=== PATIENT | male | born 1950 | race Caucasian/White ===

== ENCOUNTER 2023-05-15 09:15 | Outpatient (OUT) | payer OTHER, SELFPAY ==
--- NOTE | 2023-05-15 09:37 | CT_ITS ---
[address] [address] Patient Name: SHARON GUO MRN: [id number] date: 1950 Sex: M Assigned Patient Location: CT Current Patient Location: CT Accession/Order Number: [id number] Exam Date: 05/15/2023 09:52 Report Date: 05/15/2023 15:30 At the request of: SHAIKH SHAUNA Procedure: CT lung screening low-dose EXAMINATION: CT lung screening low-dose HISTORY: Lung cancer screening COMPARISON: No relevant comparison available. TECHNIQUE: Axial, Coronal, and Sagittal images were created without the administration of IV contrast material. Dose reduction techniques were achieved by using automated exposure control and/or adjustment of mA and/or kV according to patient size and/or use of iterative reconstruction technique. FINDINGS: LUNGS: Mild emphysematous changes. No suspicious nodules or infiltrates. PLEURA: No mass, effusion, or pneumothorax. VASCULATURE: No abnormality. PAIGE: No mass or pathologic adenopathy. MEDIASTINUM: No mass or pathologic adenopathy. CARDIAC: Atherosclerotic coronary artery disease. AORTA: No aneurysm or dissection. CHEST WALL: No mass or axillary adenopathy BONES: No bone lesion or fracture. LIMITED ABDOMEN: No suspicious findings. Limited images of the upper abdomen. OTHER: Negative. CT/CT lung screening low-dose IMPRESSION: 1. Lung-RADS Category 1 Negative. No nodules and definitely benign nodules. Continue annual screening with LDCT in 12 months. Electronically authenticated by: CODIE RICHTER Date: 05/15/2023 15:30
[2023-05-15 09:44] LABS: Basophils Absolute Auto 0.1 10^3/uL (0.0-0.1); Basophils Percent Auto 0.7 % (0.2-2.0); Eosinophils Absolute Auto 0.5 10^3/uL (0.0-0.7); Hematocrit 45.9 % (42.0-54.0); Hemoglobin 14.9 g/dL (14.0-18.0); Immature Granulocytes Abs Auto 0.03 10^3/uL (0.00-0.03); Immature Granulocytes Pct Auto 0.3 % (0.0-0.5); Lymphocytes Absolute Auto 2.5 10^3/uL (1.2-3.8); Lymphocytes Percent Auto 25.3 % (20.5-60.0); Mean Corpuscular HGB Conc 32.5 g/dL (29.9-35.2); Mean Corpuscular Hemoglobin 28.1 pg (25.9-34.0); Mean Corpuscular Volume 86.6 fL (80.0-94.0); Mean Platelet Volume 10.9 fL (9.5-13.5); Monocytes Absolute Auto 0.8 10^3/uL (0.3-0.8); Monocytes Percent Auto 8.5 % (1.7-12.0); Neutrophils Absolute Auto 5.9 10^3/uL (1.4-6.5); Neutrophils Percent Auto 60.2 % (43.0-75.0); Platelet Count 261 10^3/uL (150-450); Red Cell Distribution Width 12.8 % (11.0-15.0); White Blood Count 9.9 10^3/uL (4.0-11.0)
[2023-05-15 10:09] LABS: Alanine Aminotransferase 62 U/L (16-63); Albumin Globulin Ratio 0.8; Albumin Level 3.4 g/dL (3.4-5.0); Alkaline Phosphatase 90 U/L (46-116); Anion Gap 13.4; Aspartate Amino Transferase 68 U/L (15-37); Bilirubin Total 0.4 mg/dL (0.2-1.0); Calcium 9.4 mg/dL (8.5-10.1); Chloride 100 mmol/L (98-107); Chol HDL Ratio 4.5; Cholesterol 147 mg/dL (<=200); Estimated GFR (African America >60 (>=60); Estimated GFR (Non-African Ame >60 (>=60); Globulin 4.4 g/dL; Glucose 198 mg/dL (74-106); HDL Cholesterol 33 mg/dL (40-60); Potassium 4.4 mmol/L (3.5-5.1); Sodium 138 mmol/L (136-145); Total Protein 7.8 g/dL (6.4-8.2); Triglycerides 290 mg/dL (<=150)
[2023-05-15 11:18] LABS: Estimated Average Glucose 177 mg/dL; Glycohemoglobin A1C 7.8 % (4.5-6.2)
[2023-05-15 12:33] LABS: Microalbumin Urine Random 10.6 mg/dL (<=30.0)
== END 2023-05-15 09:16 | disposition home or self-care (01) ==
LOC: CT 09:20
PROVIDERS: PCP Internal Medicine; Visit Provider Internal Medicine
DX: Z12.2 Encounter for screening for malignant neoplasm of respiratory organs (principal); E11.9 Type 2 diabetes mellitus without complications; E78.5 Hyperlipidemia, unspecified; I10 Essential (primary) hypertension
CPT/HCPCS: 36415; 71271; 80053; 80061; 82043; 82570; 83036; 85025

== ENCOUNTER 2023-07-11 08:07 | Outpatient (OUT) | payer OTHER, SELFPAY ==
--- NOTE | 2023-07-11 08:15 | RT_ITS ---
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 Findings were considered accurate and reproducible. No bronchodilator was administered due to normal spirometric values. Due to software limitations, no prior studies (if performed previously) are currently available for comparison. Spirometry: -FEV1/FVC: Normal @ 77% -FEV1: Normal @ 86% -FVC: Normal @ 82% Lung volumes by plethysmography: -RV: Normal @ 98% -TLC: Normal @ 89% Diffusion capacity: -DLCO: Low normal @ 80% when corrected for Hb 14g/dL Flow-volume loop: -Trend towards mild restrictive pattern Impressions: -Essentially normal PFT with trends towards a mild restrictive physiology secondary to morbid obesity (stated BMI 40.4). Clinical correlation required. Electronically Signed On 07-21-2023 15:54:47 EDT by Juni Lee
[2023-07-11 09:13] LABS: Estimated Average Glucose 177 mg/dL; Glycohemoglobin A1C 7.8 % (4.5-6.2)
== END 2023-07-11 08:08 | disposition home or self-care (01) ==
LOC: CARD 08:08
PROVIDERS: PCP Internal Medicine; Visit Provider Internal Medicine
DX: E11.9 Type 2 diabetes mellitus without complications (principal); J44.9 Chronic obstructive pulmonary disease, unspecified
CPT/HCPCS: 36415; 83036; 85018; 94010; 94726; 94729

== ENCOUNTER 2023-10-07 09:17 | Outpatient (OUT) | payer OTHER, SELFPAY ==
[2023-10-07 09:57] LABS: Basophils Absolute Auto 0.1 10^3/uL (0.0-0.1); Basophils Percent Auto 0.6 % (0.2-2.0); Eosinophils Percent Auto 12.1 % (0.9-7.0); Hematocrit 41.3 % (42.0-54.0); Hemoglobin 12.8 g/dL (14.0-18.0); Immature Granulocytes Abs Auto 0.03 10^3/uL (0.00-0.03); Immature Granulocytes Pct Auto 0.4 % (0.0-0.5); Lymphocytes Percent Auto 24.3 % (20.5-60.0); Mean Corpuscular Hemoglobin 27.8 pg (25.9-34.0); Mean Corpuscular Volume 89.6 fL (80.0-94.0); Mean Platelet Volume 11.2 fL (9.5-13.5); Monocytes Absolute Auto 0.8 10^3/uL (0.3-0.8); Neutrophils Absolute Auto 4.5 10^3/uL (1.4-6.5); Neutrophils Percent Auto 53.6 % (43.0-75.0); Platelet Count 195 10^3/uL (150-450); Red Blood Count 4.61 10^6/uL (4.70-6.10); Red Cell Distribution Width 13.2 % (11.0-15.0); White Blood Count 8.4 10^3/uL (4.0-11.0)
[2023-10-07 11:31] LABS: Alanine Aminotransferase 36 U/L (16-63); Alkaline Phosphatase 82 U/L (46-116); Aspartate Amino Transferase 30 U/L (15-37); BUN Creatinine Ratio 17.4; Chloride 100 mmol/L (98-107); Estimated GFR (African America >60 (>=60); Estimated GFR (Non-African Ame 59 (>=60); Glucose 136 mg/dL (74-106); Potassium 4.3 mmol/L (3.5-5.1); Sodium 138 mmol/L (136-145)
[2023-10-07 11:57] LABS: Albumin Globulin Ratio 0.8; Albumin Level 3.2 g/dL (3.4-5.0); Anion Gap 11.4; Bilirubin Total 0.5 mg/dL (0.2-1.0); Carbon Dioxide 30.9 mmol/L (21.0-32.0); Globulin 3.9 g/dL; Total Protein 7.1 g/dL (6.4-8.2)
[2023-10-07 12:09] LABS: Estimated Average Glucose 160 mg/dL; Glycohemoglobin A1C 7.2 % (4.5-6.2)
[2023-10-07 18:39] LABS: HDL Cholesterol 35 mg/dL (40-60); Triglycerides 303 mg/dL (<=150)
[2023-10-07 18:43] LABS: Chol HDL Ratio 4.3; Cholesterol 150 mg/dL (<=200)
== END 2023-10-07 09:18 | disposition home or self-care (01) ==
LOC: LAB 09:17
PROVIDERS: PCP Internal Medicine; Visit Provider Internal Medicine
DX: E11.9 Type 2 diabetes mellitus without complications (principal); E78.5 Hyperlipidemia, unspecified
CPT/HCPCS: 36415; 80053; 80061; 83036; 85025

== ENCOUNTER 2023-10-21 15:41 | Outpatient (OUT) | payer OTHER, SELFPAY ==
--- OUTSIDE RECORDS SUMMARY | 2023-10-21 15:57 | XMS_ITS | CCD ---
Author Name Unknown Address [address] [place] [address] Organization [facility] Care Team Providers Care Senior Information Security Engineer Name Role Phone PHYSICIAN, DEFAULT Unavailable Unavailable PHYSICIAN, DEFAULT Unavailable Unavailable HAKAM, NENA Unavailable Unavailable HAKAM, NENA Unavailable Unavailable ENRIQUETA, LESLI Unavailable Unavailable KALIDIA, AMEER Unavailable Unavailable RAMIREZ, HOSSAMELDIN I Unavailable Unavailab le ENRIQUETA, LESLI Unavailable Unavailable RAMIREZ, HOSSAMELDIN I Unavailable Unavailab le RAMIREZ, HOSSAMELDIN I Unavailable Unavailab Tona Marrero Primary Care Provider Tona Daniels MD Primary Care Provider TONA DANIELS Primary Care Unavailable TONA DANIELS Referring Unavailable TONA DANIELS Primary Care Unavailable TONA DANIELS Referring Unavailable TONA DANIELS Primary Care Unavailable Pat Jesus Unavailable MD Indigo Mcnally Attending Provider Shaikh Mcnally Attending Unavailable Shaikh Mcnally Admitting Unavailable DR MP RODRIGES Primary Care Unavailable CANDELARIO HERMOSILLO Admitting Unavailable CANDELARIO HERMOSILLO Attending Unavailable CANDELARIO HERMOSILLO Consulting Unavailable [employer] Consulting Unavailable [facility] Admitting Unavailable [facility] Attending Unavailable SHAIKH Юлия MCNALLY Primary Care Unavailable [facility] Consulting Unavailable [facility] Admitting Unavailable [facility] Attending Unavailable SHAIKH Юлия MCNALLY Primary Care Unavailable [facility] Attending Unavailable CHALO TOVAR Attending Unavailable SHAIKH MCNALLY Attending Unavailable Medications Current Medications Medication Drug Class(es) Dates Sig (Normalized) Sig (Original) [id number] 200 actuat albuterol 0.09 mg/actuat metered dose inhaler (1 source) beta2-Adrenergic Agonist Start: 09-16-2021 take 2 puff(s) by inhalation four times daily as needed Albuterol Sulfate HFA 108 (90 Base) MCG/ACT 2 puffs Inhalation qid prn Sep, Active apixaban (5 sources) Factor Xa Inhibitor Eliquis Active take 1 tablet by mouth twice giovanni ly apixaban (ELIQUIS) 5 MG TABS tablet Take 5 mg by mouth 2 times daily 0 Active Aspirin (5 sources) Platelet Aggregation Inhibitor, Nonstero idal Anti-inflammatory Drug Aspirin 81 Active take 1 tablet by mouth once emily y aspirin EC 81 MG EC tablet Take 81 mg by mouth daily 0 Active atorvastatin 80 mg oral tablet (5 sources) HMG-CoA Reductase Inhibitor Start: 02-12-2021 take 1 tablet by mouth once daily atorvastatin (LIPITOR) 80 MG tablet TAKE 1 TABLET BY MOUTH EVERY DAY 90 tablet 1 02/12/2021 Active Start: 12-24-2018 take 1 tablet by hector th once daily atorvastatin (LIPITOR) 80 MG tablet TAKE ONE TABLET BY MOUTH ONE TIME A DAY 90 tablet 3 12/24/2018 Active Atorvastatin Santiago cium Active azithromycin 250 mg oral tablet (1 source) Macrolide Antimicrobial Start: 09-16-2021 Zithromax 250 MG 2 tablet on the first day, then 1 tablet daily for 4 days Orally Once a day for 5 day(s) Sep, Active blood glucose monitor kit and supplies (1 source) Start: 03-29-2020 blood glucose monitor kit and supplies Indications: Controlled type 2 diabetes mellitus with hyperglycemia, without long-term current use of insulin (HCC) Use to test daily 1 kit 0 03/29/2020 Active calcium chloride 0.0014 meq/ml / potassium chloride 0.004 meq/ml / sodium chloride 0.103 meq/ml / sodium lactate 0.028 meq/ml injectable solution (1 source) Start: 05-31-2019 lactated ringers infusion cholecalciferol 0.05 mg oral capsule (4 sources) Vitamin D take 1 capsule by mouth once daily Cholecalciferol (VITAMIN D) 2000 units CAPS capsule Take 1 capsule by mouth daily 0 Active dilTIAZem hydrochloride 60 mg oral tablet (5 sources) Calcium Channel Tiffani Start: 06-18-2019 take 1 tablet by mouth twice daily diltiazem (CARDIZEM) 60 MG tablet TAKE 1 TABLET BY MOUTH TWICE A DAY 6 06/18/2019 Active Diltiazem CD Act renetta take 1 tablet by mouth twice giovanni ly diltiazem (CARDIZEM) 30 MG tablet Take 30 mg by mouth 2 times daily 0 Active donepezil hydrochloride 10 mg oral tablet (2 sources) Start: 06-04-2021 take 1 tablet by mouth once daily donepezil (ARICEPT) 10 MG tablet TAKE 1 TABLET BY MOUTH EVERY DAY AT NIGHT 30 tablet 5 06/04/2021 Active Aricept Active gabapentin 300 mg oral capsule (2 sources) Anti-epileptic Agent Start: 03-20-2021 End: 09-16-2021 gabapentin (NEURONTIN) 300 MG capsule Take 1 capsule by mouth nightly for 180 days. Intended supply: 30 days 30 capsule 5 03/20/2021 09/16/2021 Active Gabapentin Activ e glimepiride 2 mg oral tablet (5 sources) Sulfonylurea Start: 03-15-2021 take 1 tablet by mouth once daily before breakfast glimepiride (AMARYL) 2 MG tablet Indications: Controlled type 2 diabetes mellitus with hyperglycemia, without long-term current use of insulin ([facility]) TAKE 1 TABLET BY MOUTH EVERY DAY BEFORE BREAKFAST 90 tablet 1 03/15/2021 Active Start: 08-24-2019 take 1 tablet by hector th once daily before breakfast glimepiride (AMARYL) 2 MG tablet Indications: Controlled type 2 diabetes mellitus with hyperglycemia, without long-term current use of insulin ([facility]) Take 1 tablet by mouth every morning (before breakfast) 30 tablet 5 08/24/2019 Active Start: 04-01-2019 take 1 tablet by hector th once daily before breakfast glimepiride (AMARYL) 2 MG tablet Indications: Controlled type 2 diabetes mellitus with hyperglycemia, without long-term current use of insulin ([facility]) Take 1 tablet by mouth every morning (before breakfast) 30 tablet 5 04/01/2019 Active Glimepiride Acti ve 12 hr guaiFENesin 600 mg extended release oral tablet (4 sources) Start: 07-26-2019 take 1 tablet by mouth twice daily as needed for congestion guaiFENesin (MUCINEX) 600 MG extended release tablet Take 1 tablet by mouth 2 times daily as needed for Congestion 30 tablet 0 07/26/2019 Active Mucinex Active metFORMIN hydrochloride 1000 mg oral tablet (5 sources) Biguanide Start: 02-09-2021 take 1 tablet by mouth twice daily at mealtime metFORMIN (GLUCOPHAGE) 1000 MG tablet Indications: Controlled type 2 diabetes mellitus with hyperglycemia, without long-term current use of insulin ([facility]) TAKE 1 TABLET BY MOUTH TWICE A DAY WITH MEALS 180 tablet 1 02/09/2021 Active Start: 09-27-2019 take 1 tablet by hector th twice daily at mealtime metFORMIN (GLUCOPHAGE) 1000 MG tablet Indications: Controlled type 2 diabetes mellitus with hyperglycemia, without long-term current use of insulin ([facility]) Take 1 tablet by mouth 2 times daily (with meals) 60 tablet 5 09/27/2019 Active Start: 04-01-2019 take 1 tablet by hector th twice daily at mealtime metFORMIN (GLUCOPHAGE) 1000 MG tablet Indications: Controlled type 2 diabetes mellitus with hyperglycemia, without long-term current use of insulin ([facility]) Take 1 tablet by mouth 2 times daily (with meals) 60 tablet 5 04/01/2019 Active metFORMIN HCl Ac tive nitroglycerin 0.4 mg sublingual tablet (2 sources) Nitrate Vasodilator Start: 12-16-2019 nitroGLYCE RIN (NITROSTAT) 0.[address] 1 tablet under the tongue every 5 minutes as needed for Chest pain 25 tablet 1 12/16/2019 Active Nitroglycerin Ac tive omeprazole 20 mg delayed release oral capsule (5 sources) Proton Pump Inhibitor Start: 03-15-2021 take 1 capsule by mouth once daily omeprazole (PRILOSEC) 20 MG delayed release capsule TAKE 1 CAPSULE BY MOUTH EVERY DAY 90 capsule 1 03/15/2021 Active Start: 12-24-2018 take 1 capsule by mo uth once daily omeprazole (PRILOSEC) 20 MG delayed release capsule Take 1 capsule by mouth daily 90 capsule 3 12/24/2018 Active Omeprazole Activ e predniSONE 20 mg oral tablet (1 source) Start: 09-16-2021 take 1 tablet by mouth every twelve hours predniSONE 20 MG 1 tablet Orally bid for 5 day(s) 12 Dec, 2021 Active Primidone (1 source) Anti-epileptic Agent Primidone Active ramipril 5 mg oral capsule (5 sources) Angiotensin Converting Enzyme Inhibitor Start: 02-09-2021 take 1 capsule by mouth twice daily ramipril (ALTACE) 5 MG capsule TAKE 1 CAPSULE BY MOUTH TWICE A DAY 180 capsule 1 02/09/2021 Active Start: 12-24-2018 take 1 capsule by mo uth twice daily ramipril (ALTACE) 5 MG capsule Take 1 capsule by mouth 2 times daily 180 capsule 3 12/24/2018 Active Ramipril Active 3 ml sodium chloride 9 mg/ml injection (2 sources) Start: 05-31-2019 sodium chlorid e flush 0.9 % injection 10 mL Start: 05-31-2019 sodium chlorid e (PF) 0.9 % injection 10 mL Sotalol (5 sources) Antiarrhythmic Sotalol HCl Acti ve take 1 tablet by mouth twice giovanni ly sotalol (BETAPACE) 120 MG tablet Take 120 mg by mouth 2 times daily 0 Active Vitamin D (1 source) Vitamin D Active Completed/Discontinued Medications Medication Drug Class(es) Dates Sig (Normalized) Sig (Original) magnesium sulfate 0.0277 meq/ml / potassium sulfate 0.0374 meq/ml / sodium sulfate 0.257 meq/ml oral solution (1 source) Start: 05-06-2019 End: 05-31-2019 Na Sulfate-K Sulfate-Mg Sulf (SUPREP BOWEL PREP KIT) 17.5-3.13-1.6 GM/177ML SOLN Indications: Colon cancer screening Use as directed. 1 Bottle 0 05/06/2019 05/31/2019 Discontinued (Therapy completed) Problems Active Problems Problem Classification Problem Date Documented Date Episodic/Chronic Acute cerebrovascular disease (4 sources) Cerebral infarction; Translations: [Cerebral infarction, unspecified] 08-06-2015 Chronic Cardiac dysrhythmias (7 sources) Unspecified atrial fibrillation; Translations: [Supraventricular tachycardia] Onset: 07-10-2017 08-02-2017 Chronic Chronic obstructive pulmonary disease and bronchiectasis (1 source) Chronic obstructive lung disease; Translations: [Chronic obstructive pulmonary disease, unspecified] Onset: 03-29-2020 03-29-2020 Chronic Coronary atherosclerosis and other heart disease (6 sources) Coronary arteriosclerosis; Translations: [Atherosclerotic heart disease of [place] coronary artery without angina pectoris] Onset: 10-30-2022 01-20-2012 Chronic Delirium, dementia, and amnestic and other cognitive disorders (1 source) Alzheimer's disease; Translations: [Alzheimer's disease, unspecified] Onset: 05-10-2021 05-10-2021 Chronic Diabetes mellitus without complication (4 sources) Type 2 diabetes mellitus; Translations: [Type 2 diabetes mellitus without complications] Onset: 04-18-2015 08-02-2017 Chronic Disorders of lipid metabolism (5 sources) Hyperlipidemia; Translations: [Hyperlipidemia, unspecified] Onset: 10-29-2022 08-02-2017 Chronic Essential hypertension (4 sources) Hypertensive disorder; Translations: [Essential (primary) hypertension] 08-02-2017 Chronic Glaucoma (4 sources) Glaucoma; Translations: [Unspecified glaucoma] 01-20-2012 Chronic Other connective tissue disease (2 sources) Weakness of face muscles; Translations: [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)] Episodic Other lower respiratory disease (4 sources) Shortness of breath; Translations: [SHORTNESS OF BREATH] Onset: 11-19-2022 Episodic Other lower respiratory disease (2 sources) Other forms of dyspnea; Translations: [Other forms of dyspnea] Onset: 04-07-2023 Episodic Other nutritional; endocrine; and metabolic disorders (1 source) Body mass index 40+ - severely obese; Translations: [Morbid (severe) obesity due to excess calories] Onset: 03-29-2020 03-29-2020 Chronic Parkinson`s disease (4 sources) Parkinsonism; Translations: [Parkinson's disease] 01-20-2012 Chronic Viral infection (1 source) Disease caused by 2019-nCoV; Translations: [COVID-19] Episodic Past or Other Problems Problem Classification Problem Date Documented Da te Episodic/Chronic Cardiac dysrhythmias (3 sources) Palpitations; Translations: [PALPITATIONS] Onset: 05-02-2022 Episodic Chronic obstructive pulmonary disease and bronchiectasis (1 source) Bronchitis, not specified as acute or chronic Onset: 09-16-2021 Resolved: 09-16-2021 Episodic Immunizations and screening for infectious disease (1 source) Contact with and (suspected) exposure to other viral communicable diseases Onset: 09-16-2021 Resolved: 09-16-2021 Episodic Nonspecific chest pain (8 sources) Chest pain; Translations: [Chest pain, unspecified] Onset: 04-15-2014 Resolved: 04-13-2018 04-13-2018 Episodic Other aftercare (1 source) 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; Translations: [INSURANCE COUNSELOR CURRNT USE ANTICOAGULANTS] Onset: 05-06-2022 Episodic Other aftercare (1 source) alf (current) use of aspirin; Translations: [INSURANCE COUNSELOR CURRENT USE OF ASPIRIN] Onset: 05-06-2022 Episodic Other aftercare (1 source) Other director long term care (current) drug therapy; Translations: [OTH SENIOR LIVING CURRENT DRUG THERAPY] Onset: 05-06-2022 Episodic Other circulatory disease (3 sources) H/O: atrial fibrillation; Translations: [Personal history of other diseases of the circulatory system] Onset: 08-02-2017 07-26-2019 Episodic Peripheral and visceral atherosclerosis (4 sources) Peripheral vascular disease; Translations: [Peripheral vascular disease, unspecified] Resolved: 04-13-2018 04-13-2018 Chronic Results Test Name Value Interpretation Reference Range Facility Office Visiton 04-07-2023 Follow-up visit [id number] LatanyaFemi maurer W 1950 M Date Provider Department Center 04/07/2023 CHALO GOMEZ CARD [facility] Family History Problem Relation Age of Onset Coronary artery disease Maternal Grandmother Coronary artery disease Maternal Grandfather Cerebral aneurysm Paternal Grandmother Family Status - Relation Status Age at Maternal Grandmother Maternal Grandfather Paternal Grandmother Level of Service:46550 AL OFFICE/OUTPATIENT ESTABLISHED MOD MDM 30-39 MIN Normal [facility] NM STRESS/REST MULTIon 11-19 NM STRESS/REST MULTI Patient: FEMI PELAEZ Exam Date: 11/19/2022 : 1950 Gender:M Ordering : DR CHALO TOVAR M.D. Admission #: [id number] Family : Order #: [id number] CLICK HERE TO VIEW EXAM RADIOLOGY REPORT PROCEDURE: RADIONUCLIDE IMAGING STRESS/REST MULTI COMPARISON: None. INDICATIONS: Dyspnea TECHNIQUE: Exam Description: Stress/Rest two day protocol gated SPECT Rest Imagin.1 mCi Tc-99m Cardiolite IV on 11/26/2022 Stress Imaging 27.0 mCi Tc-99m Cardiolite IV on 11/19/2022 Exercise Protocol: 0.4 mg Lexiscan given IV Heart Rate (bpm): Rest: 70 Max: 85 PMHR: 57 Blood Pressure: Rest: 148/80 Max: 150/78 Symptoms: Rest and peak stress ECG findings were normal and the exercise portion of the study was normal per attending physician Dr. Kidd . For more details please see separate cardiac stress test report. FINDINGS: QUALITY OF STUDY: Excellent. PERFUSION DEFECT: None. LOCATION: N/A SIZE: N/A. SEVERITY: N/A. TYPE: N/A. WALL MOTION: Normal. LV SIZE: Normal. 112 mL. TID / TCD: None; 1.0 LVEF: Normal. Calculated EF 65%. SUMMARY: Myocardial perfusion imaging study is NORMAL. CONCLUSION: 1. Normal nuclear medicine myocardial perfusion scan. Dictated by: Dustin Cotter M.D. on 11/27/2022 at 14:58 Approved by: Dustin Cotter M.D. on 11/27/2022 at 15:02 Normal [facility] 10-30-2022 Telemedicine [id number] Femi Pelaez 1950 [facility] Provider Department Center 10/30/2022 [facility]CHALO TOVAR [facility] Family History Problem Relation Age of Onset Coronary artery disease Maternal Grandmother Coronary artery disease Maternal Grandfather Cerebral aneurysm Paternal Grandmother Family Status - Relation Status Age at Maternal Grandmother Maternal Grandfather Paternal Grandmother Level of Service:73060 AL OFFICE/OUTPATIENT [facility] 15-29 MINUTES Reason for Visit and Comments: Coronary Artery Disease [187] Atrial Fibrillation [80] Normal [facility] A1C with Estimated Average [facility] 10-29-2022 Glucose [Mass/Vol] 169 mg/dL Normal [facility] Comment on above: Result Comment: PERF ORMED BY: [address] [place] [address] PATHOLOGIST DECKHAND FISHING VESSEL WINTER RODRIGUEZ M.D. Performed By: #### U RMACRERAT, CBC, A1C WTH eA, LIPID, CMP #### [facility] [address] HbA1c (Bld) [Mass fraction] 7.5 % High 4.3-5.6 [facility] Comment on above: Result Comment: Incr eased risk for diabetes: 5.7 - 6.4 diabetes: >6.4 glycemic control for adults with diabetes: <7.0 Performed By: #### U RMACRERAT, CBC, A1C WTH eA, LIPID, CMP #### [facility] [address] [place] [address] Albumin [Mass/volume] in Ser um or PlasmaOrdered By: Shaikh Shauna on 10-29-2022 Albumin [Mass/Vol] 3.8 g/dL 3.2-5.5 [facility] Basophils Auto (Bld) [#/Vol] Ordered By: Shaikh Shauna on 10-29-2022 Basophils (Bld) [#/Vol] 0.1 10*3/uL 0.0-0.2 [facility] Basophils/100 WBC Auto (Bld) Ordered By: Shaikh Shauna on 10-29-2022 Basophils/100 WBC (Bld) 0.7 % . [facility] Cholesterol [Mass/volume] in Serum or PlasmaOrdered By: Shaikh Shauna on 10-29-2022 Cholesterol [Mass/Vol] 147 mg/dL 140-200 [facility] Comment on above: Chol less than 200 m g/dl low riskChol 201-239 mg/dl borderline riskChol 240 mg/dl and greater high risk Cholesterol in LDL Calc [Mas s/Vol]Ordered By: Shaikh Shauna on 10-29-2022 Cholesterol in LDL [Mass/Vol] 62 mg/dL 0-100 [facility] Comment on above: LDL ATP III CLASSIFI CATIONLDL less than 100 mg/dL OptimalLDL 100-129 mg/dL Near or above optimalLDL 130-159 mg/dL Borderline highLDL 160-189 mg/dL HighLDL greater than 189 mg/dL Very high Cholesterol in VLDL Calc [Ma ss/Vol]Ordered By: Shaikh Shauna on 10-29-2022 Cholesterol in VLDL [Mass/Vol] 57 mg/dL [facility] Complete Blood Count Auto Di ffon 10-29-2022 Basophils (Bld) [#/Vol] 0.1 10*3/uL Normal 0.0-0.2 [facility] Comment on above: Result Comment: PERF ORMED BY: [place] [address] PATHOLOGIST DECKHAND FISHING VESSEL WINTER RODRIGUEZ M.D. Performed By: #### U RMACRERAT, CBC, A1C WTH eA, LIPID, CMP #### [place] [address] [place] Basophils/100 WBC (Bld) 0.7 % Normal . [facility] Comment on above: Performed By: #### U RMACRERAT, CBC, A1C WTH eA, LIPID, CMP #### [address] Eosinophils (Bld) [#/Vol] 0.5 10*3/uL High 0.0-0.45 [facility] Comment on above: Performed By: #### U RMACRERAT, CBC, A1C WTH eA, LIPID, CMP #### [address] Eosinophils/100 WBC (Bld) 5.3 % Normal . [facility] Comment on above: Performed By: #### U RMACRERAT, CBC, A1C WTH eA, LIPID, CMP #### [address] Erythrocyte distribution width (RBC) [Ratio] 13.7 % Normal 12.0-14.8 [facility] Comment on above: Performed By: #### U RMACRERAT, CBC, A1C WTH eA, LIPID, CMP #### [address] Hematocrit (Bld) [Volume fraction] 44.8 % Normal 38.8-50.0 [facility] Comment on above: Performed By: #### U RMACRERAT, CBC, A1C WTH eA, LIPID, CMP #### [address] Hemoglobin (Bld) [Mass/Vol] 14.5 g/dL Normal 13.0-17.0 [facility] Comment on above: Performed By: #### U RMACRERAT, CBC, A1C WTH eA, LIPID, CMP #### [facility] [address] [place] [address] [place] Lymphocytes (Bld) [#/Vol] 2.1 10*3/uL Normal 1.00-4.8 [facility] Comment on above: Performed By: #### U RMACRERAT, CBC, A1C WTH eA, LIPID, CMP #### [address] Lymphocytes/100 WBC (Bld) 21.4 % Normal . [facility] Comment on above: Performed By: #### U RMACRERAT, CBC, A1C WTH eA, LIPID, CMP #### [address] MCH (RBC) [Entitic mass] 27.5 pg Normal 27.5-35.2 [facility] Comment on above: Performed By: #### U RMACRERAT, CBC, A1C WTH eA, LIPID, CMP #### [address] MCV (RBC) [Entitic vol] 84.7 fL Normal 83.5-101 F [facility] Comment on above: Performed By: #### U RMACRERAT, CBC, A1C WTH eA, LIPID, CMP #### [address] Mean Corpuscular HGB Conc 32.5 g/dL Normal 32.5-35.6 [facility] Comment on above: Performed By: #### U RMACRERAT, CBC, A1C WTH eA, LIPID, CMP #### [place] [address] [place] Monocytes (Bld) [#/Vol] 0.7 10*3/uL Normal 0.0-0.8 [facility] Comment on above: Performed By: #### U RMACRERAT, CBC, A1C WTH eA, LIPID, CMP #### [place] [address] [place] Monocytes/100 WBC (Bld) 7.2 % Normal . [facility] Comment on above: Performed By: #### U RMACRERAT, CBC, A1C WTH eA, LIPID, CMP #### [facility] [address] [place] [address] [place] Neutrophils (Bld) [#/Vol] 6.4 10*3/uL Normal 1.8-7.7 [facility] Comment on above: Performed By: #### U RMACRERAT, CBC, A1C WTH eA, LIPID, CMP #### [place] [address] [place] Neutrophils/100 WBC (Bld) 65.4 % Normal . [facility] Comment on above: Performed By: #### U RMACRERAT, CBC, A1C WTH eA, LIPID, CMP #### [address] NRBC% 0.2 /100{WBC} Normal 0-0.5 [facility] Comment on above: Performed By: #### U RMACRERAT, CBC, A1C WTH eA, LIPID, CMP #### [place] [address] [place] Platelet mean volume (Bld) [Entitic vol] 10.2 fL High 6.6-10.1 [facility] Comment on above: Performed By: #### U RMACRERAT, CBC, A1C WTH eA, LIPID, CMP #### [facility] [address] [place] [address] [place] Platelets (Bld) [#/Vol] 235 10*3/uL Normal 150-450 [facility] Comment on above: Performed By: #### U RMACRERAT, CBC, A1C WTH eA, LIPID, CMP #### [facility] [address] [place] [address] [place] RBC (Bld) [#/Vol] 5.28 10*6/uL Normal 3.90-5.60 [facility] Comment on above: Performed By: #### U RMACRERAT, CBC, A1C WTH eA, LIPID, CMP #### [address] [place] [address] [place] WBC (Bld) [#/Vol] 9.8 10*3/uL Normal 4.1-10.5 [facility] Comment on above: Performed By: #### U RMACRERAT, CBC, A1C WTH eA, LIPID, CMP #### [address] Comprehensive Metabolic Pane concha 10-29-2022 Albumin [Mass/Vol] 3.8 g/dL Normal 3.2-5.5 [facility] Comment on above: Performed By: #### U RMACRERAT, CBC, A1C WTH eA, LIPID, CMP #### [address] Albumin/Globulin [Mass ratio] 1.3 {ratio} Normal [facility] Comment on above: Performed By: #### U RMACRERAT, CBC, A1C WTH eA, LIPID, CMP #### [address] ALP [Catalytic activity/Vol] 73 U/L Normal 32-92 [facility] Comment on above: Performed By: #### U RMACRERAT, CBC, A1C WTH eA, LIPID, CMP #### [address] ALT [Catalytic activity/Vol] 42 U/L Normal 10-60 [facility] Comment on above: Performed By: #### U RMACRERAT, CBC, A1C WTH eA, LIPID, CMP #### [address] Anion gap [Moles/Vol] 14.2 mmol/L Normal 6.0-15.0 [facility] Comment on above: Performed By: #### U RMACRERAT, CBC, A1C WTH eA, LIPID, CMP #### [address] AST [Catalytic activity/Vol] 53 U/L High 10-42 [facility] Comment on above: Performed By: #### U RMACRERAT, CBC, A1C WTH eA, LIPID, CMP #### [facility] [address] Bilirubin [Mass/Vol] 0.6 mg/dL Normal 0.3-1.2 [facility] Comment on above: Performed By: #### U RMACRERAT, CBC, A1C WTH eA, LIPID, CMP #### [facility] [address] Calcium [Mass/Vol] 9.2 mg/dL Normal 8.2-10.2 [facility] Comment on above: Performed By: #### U RMACRERAT, CBC, A1C WTH eA, LIPID, CMP #### [facility] [address] Chloride [Moles/Vol] 99 mmol/L Normal 95-114 [facility] Comment on above: Performed By: #### U RMACRERAT, CBC, A1C WTH eA, LIPID, CMP #### [address] CO2 [Moles/Vol] 27.4 mmol/L Normal 22.0-30.0 [facility] Comment on above: Performed By: #### U RMACRERAT, CBC, A1C WTH eA, LIPID, CMP #### [address] Creatinine [Mass/Vol] 1.00 mg/dL Normal 0.64-1.27 [facility] Comment on above: Performed By: #### U RMACRERAT, CBC, A1C WTH eA, LIPID, CMP #### [facility] [address] [place] [address] Estimated GFR ( Felipa > 60 [facility] Comment on above: Result Comment: GFR estimated reference range: According to KDOQI guidelines, <60 ml/min/1.73m2 is sufficient to diagnose a patient with chronic kidney disease. Performed By: #### U RMACRERAT, CBC, A1C WTH eA, LIPID, CMP #### [facility] Ctr [address] [place] [address] Estimated GFR (Non- Am > 60 [facility] Comment on above: Performed By: #### U RMACRERAT, CBC, A1C WTH eA, LIPID, CMP #### [facility] [address] Globulin (S) [Mass/Vol] 2.9 g/dL Normal F [facility] Comment on above: Performed By: #### U RMACRERAT, CBC, A1C WTH eA, LIPID, CMP #### [facility] [address] Glucose [Mass/Vol] 145 mg/dL High 70-100 [facility] Comment on above: Result Comment: [facility] Glucose Reference Range is dependent on time and content of last meal. Glucose of more than 200 mg/dL in a nonstressed, ambulatory subject supports the diagnosis of Diabetes Mellitus. ADA recommended reference range Performed By: #### U RMACRERAT, CBC, A1C WTH eA, LIPID, CMP #### [facility] [address] [place] [address] Potassium [Moles/Vol] 4.6 mmol/L Normal 3.5-5.1 [facility] Comment on above: Performed By: #### U RMACRERAT, CBC, A1C WTH eA, LIPID, CMP #### [address] Protein [Mass/Vol] 6.7 g/dL Normal 6.1-7.9 [facility] Comment on above: Performed By: #### U RMACRERAT, CBC, A1C WTH eA, LIPID, CMP #### [address] Sodium [Moles/Vol] 136 mmol/L Normal 136-146 [facility] Comment on above: Performed By: #### U RMACRERAT, CBC, A1C WTH eA, LIPID, CMP #### [address] Urea nitrogen [Mass/Vol] 15 mg/dL Normal 9-23 [facility] Comment on above: Performed By: #### U RMACRERAT, CBC, A1C WTH eA, LIPID, CMP #### [facility] [address] Creatinine [Mass/volume] in UrineOrdered By: Shaikh Shauna on 10-29-2022 Creatinine (U) [Mass/Vol] 166.9 mg/dL [facility] Comment on above: No reference range e stablished Creatinine and Glomerular fi ltration rate.predicted panel (S/P/Bld)Ordered By: Shaikh Shauna on 10-29-2022 Creatinine [Mass/Vol] 1.00 mg/dL 0.64-1.27 [facility] Eosinophils Auto (Bld) [#/Vo l]Ordered By: Shaikh Shauna on 10-29-2022 Eosinophils (Bld) [#/Vol] 0.5 10*3/uL 0.0-0.45 [facility] Eosinophils/100 WBC Auto (Bl d)Ordered By: Shaikh Shauna on 10-29-2022 Eosinophils/100 WBC (Bld) 5.3 % . [facility] Erythrocyte distribution wid th Auto (RBC) [Ratio]Ordered By: Shaikh Shauna on 10-29-2022 Erythrocyte distribution width (RBC) [Ratio] 13.7 % 12.0-14.8 [facility] Estimated glomerular filtrat ion rate (GFR) non- AmericanOrdered By: Shaikh Shauna on 10-29-2022 GFR/1.73 sq M.predicted among non-blacks MDRD (S/P/Bld) [Vol rate/Area] > 60 mL/Min [facility] Globulin Calc (S) [Mass/Vol] Ordered By: Shaikh Shauna on 10-29-2022 Globulin (S) [Mass/Vol] 2.9 g/dL [facility] Glucose mean value [Mass/vol ume] in Blood Estimated from glycated hemoglobinOrdered By: Shaikh Shauna on 10-29-2022 Average glucose Estimated from glycated hemoglobin (Bld) [Mass/Vol] 169 mg/dL [facility] Hematocrit Auto (Bld) [Volum e fraction]Ordered By: Shaikh Shauna on 10-29-2022 Hematocrit (Bld) [Volume fraction] 44.8 % 38.8-50.0 [facility] Hemoglobin A1c percentageOrd ered By: Shaikh Shauna on 10-29-2022 HbA1c (Bld) [Mass fraction] 7.5 % 4.3-5.6 [facility] Comment on above: Increased risk for d iabetes: 5.7 - 6.4diabetes: >6.4glycemic control for adults with diabetes: <7.0 Hemoglobin [Mass/volume] in BloodOrdered By: Shaikh Shauna on 10-29-2022 Hemoglobin (Bld) [Mass/Vol] 14.5 g/dL 13.0-17.0 [facility] Leukocytes [#/volume] correc wiley for nucleated erythrocytes in Blood by Automated counOrdered By: Shaikh Shauna on 10-29-2022 WBC corrected for nucl RBC Auto (Bld) [#/Vol] 9.8 10*3/uL 4.1-10.5 [facility] Lipid Panelon 10-29-2022 Cholesterol [Mass/Vol] 147 mg/dL Normal 140-200 [facility] Comment on above: Result Comment: Chol less than 200 mg/dl low risk Chol 201-239 mg/dl borderline risk Chol 240 mg/dl and greater high risk Performed By: #### U RMACRERAT, CBC, A1C WTH eA, LIPID, CMP #### [facility] [address] Cholesterol in HDL [Mass/Vol] 28 mg/dL Low 29-71 [facility] Comment on above: Result Comment: HDL CHOL ATP-III CLASSIFICATION Cardiovascular Risk HDL > or equal to 60 mg/dL LOW HDL < 40 mg/dL HIGH Performed By: #### U RMACRERAT, CBC, A1C WT eA, LIPID, CMP #### [facility] [address] Cholesterol.total/Apple sterol in HDL [Mass ratio] 5.3 {ratio} Normal <5.0 [facility] Comment on above: Result Comment: PERF ORMED BY: [facility] [address] [place] [address] PATHOLOGIST DECKHAND FISHING VESSEL WINTER RODRIGUEZ M.D. Performed By: #### U RMACRERAT, CBC, A1C WTH eA, LIPID, CMP #### [facility] [address] LDL Cholesterol,Calculated 62 mg/dL Normal 0-100 [facility] Comment on above: Result Comment: LDL ATP III CLASSIFICATION LDL less than 100 mg/dL Optimal LDL 100-129 mg/dL Near or above optimal LDL 130-159 mg/dL Borderline high LDL 160-189 mg/dL High LDL greater than 189 mg/dL Very high Performed By: #### U RMACRERAT, CBC, A1C WTH eA, LIPID, CMP #### [facility] [address] Triglyceride w/Reflex 285 mg/dL High 35-149 [facility] Comment on above: Result Comment: TRIG ATP III CLASSIFICATION TRIG less than 150 mg/dL Normal TRIG 150-199 mg/dL Borderline high TRIG 200-500 mg/dL High TRIG greater than 500 mg/dL Very high Standard traceable to the Center for Disease Conrtrol and Prevention (CDC) test method. Performed By: #### U RMACRERAT, CBC, A1C WTH eA, LIPID, CMP #### [facility] [address] VLDL CHOLESTEROL 57 mg/dL Normal [facility] Comment on above: Performed By: #### U RMACRERAT, CBC, A1C WTH eA, LIPID, CMP #### [facility] [address] [place] [address] [place] Lymphocytes Auto (Bld) [#/Vo l]Ordered By: Shaikh Shauna on 10-29-2022 Lymphocytes (Bld) [#/Vol] 2.1 10*3/uL 1.00-4.8 [facility] Lymphocytes/100 WBC Auto (Bl d)Ordered By: Shaikh Shauna on 10-29-2022 Lymphocytes/100 WBC (Bld) 21.4 % . [facility] MCH Auto (RBC) [Entitic mass ]Ordered By: Shaikh Shauna on 10-29-2022 MCH (RBC) [Entitic mass] 27.5 pg 27.5-35.2 [facility] MCHC Auto (RBC) [Mass/Vol]Or dered By: Shaikh Shauna on 10-29-2022 MCHC (RBC) [Mass/Vol] 32.5 g/dL 32.5-35.6 [facility] MCV Auto (RBC) [Entitic vol] Ordered By: Shaikh Shauna on 10-29-2022 MCV (RBC) [Entitic vol] 84.7 fL 83.5-[address] [facility] MicroAlb Creat Ratio,Uon Albumin DL <= 20 mg/L (U) [Mass/Vol] 18.7 mg/dL High 0.0-1.8 [facility] Comment on above: Performed By: #### U RMACRERAT, CBC, A1C WTH eA, LIPID, CMP #### [facility] [address] Creatinine, Urine (Random) 166.9 mg/dL Normal [facility] Comment on above: Result Comment: No r eference range established Performed By: #### U RMACRERAT, CBC, A1C WTH eA, LIPID, CMP #### [facility] [address] Microalbumin/Creatinine Ratio 112.0 mg/g High 0.0-30.0 [facility] Comment on above: Result Comment: 30-3 00 mg/g indicates an increased risk for diabetic nephropathy. Greater than 300 mg/g is consistent with clinical nephropathy. (Am. J. Kidney Disease 1995, 25:107) PERFORMED BY: [place] [address] PATHOLOGIST [employer] VESSEL WINTER RODRIGUEZ M.D. Performed By: #### U RMACRERAT, CBC, A1C WTH eA, LIPID, CMP #### [facility] [address] Monocytes Auto (Bld) [#/Vol] Ordered By: Shaikh Shauna on 10-29-2022 Monocytes (Bld) [#/Vol] 0.7 10*3/uL 0.0-0.8 [facility] Monocytes/100 WBC Auto (Bld) Ordered By: Shaikh Shauna on 10-29-2022 Monocytes/100 WBC (Bld) 7.2 % . [facility] Neutrophils Auto (Bld) [#/Vo l]Ordered By: Shaikh Shauna on 10-29-2022 Neutrophils (Bld) [#/Vol] 6.4 10*3/uL 1.8-7.7 [facility] Neutrophils/100 WBC Auto (Bl d)Ordered By: Shaikh Shauna on 10-29-2022 Neutrophils/100 WBC (Bld) 65.4 % . [facility] No Panel InformationOrdered By: Shaikh Shauna on 10-29-2022 Estimated GFR () > 60 mL/Min [facility] Comment on above: GFR estimated refere nce range: According to KDOQI guidelines, <60 ml/min/1.73m2 is sufficient to diagnose a patient with chronic kidney disease. Pharmacy Creatinine Clearance (Chem N/A [facility] Nucleated erythrocytes [Pres ence] in Blood by Automated countOrdered By: Shaikh Shauna on 10-29-2022 Nucleated RBC Auto Ql (Bld) 0.2 /100{WBC} 0-0.5 [facility] Platelet mean volume Auto (B ld) [Entitic vol]Ordered By: Shaikh Shauna on 10-29-2022 Platelet mean volume (Bld) [Entitic vol] 10.2 fL 6.6-10.1 [facility] Platelets Auto (Bld) [#/Vol] Ordered By: Shaikh Shauna on 10-29-2022 Platelets (Bld) [#/Vol] 235 10*3/uL 150-450 [facility] Protein [Mass/volume] in Ser um or PlasmaOrdered By: Shaikh Shauna on 10-29-2022 Protein [Mass/Vol] 6.7 g/dL 6.1-7.9 [facility] RBC Auto (Bld) [#/Vol]Ordere d By: Shaikh Shauna on 10-29-2022 RBC (Bld) [#/Vol] 5.28 10*6/uL 3.90-5.60 [facility] Serum or plasma alanine azevedo otransferase measurement without P-5'-P (enzymatic activiOrdered By: Shaikh Shauna on 10-29-2022 ALT No additional P-5'-P [Catalytic activity/Vol] 42 U/L 60 [facility] Serum or plasma albumin/glob ulin mass ratioOrdered By: Shaikh Shauna on 10-29-2022 Albumin/Globulin [Mass ratio] 1.3 {ratio} [facility] Serum or plasma alkaline julia sphatase measurement (enzymatic activity/volume)Ordered By: Shaikh Shauna on 10-29-2022 ALP [Catalytic activity/Vol] 73 U/L 32-92 [facility] Serum or plasma anion gap de terminationOrdered By: Shaikh Shauna on 10-29-2022 Anion gap [Moles/Vol] 14.2 mmol/L 6.0-15.0 [facility] Serum or plasma aspartate am inotransferase measurement (enzymatic activity/volume)Ordered By: Shaikh Shauna on 10-29-2022 AST [Catalytic activity/Vol] 53 U/L [facility] Serum or plasma calcium david urement (mass/volume)Ordered By: Shaikh Shauna on 10-29-2022 Calcium [Mass/Vol] 9.2 mg/dL 8.2-10.2 [facility] Serum or plasma chloride traci surement (moles/volume)Ordered By: Shaikh Shauna on 10-29-2022 Chloride [Moles/Vol] 99 mmol/L 95-114 [facility] Serum or plasma glucose david urement (mass/volume)Ordered By: Shaikh Shauna on 10-29-2022 Glucose [Mass/Vol] 145 mg/dL 70-100 [facility] Comment on above: ADA recommended refe rence rangeRandom Glucose Reference Range is dependent on time and content of last meal. Glucose of more than 200 mg/dL in a nonstressed, ambulatory subject supports the diagnosis of Diabetes Mellitus. Serum or plasma high density lipoprotein (HDL) cholesterol measurementOrdered By: Shaikh Shauna on 10-29-2022 Cholesterol in HDL [Mass/Vol] 28 mg/dL 29-71 [facility] Comment on above: HDL CHOL ATP-III CLA SSIFICATION Cardiovascular RiskHDL > or equal to 60 mg/dL LOWHDL < 40 mg/dL HIGH Serum or plasma potassium me asurement (moles/volume)Ordered By: Shaikh Shauna on 10-29-2022 Potassium [Moles/Vol] 4.6 mmol/L 3.5-5.1 [facility] Serum or plasma sodium measu rement (moles/volume)Ordered By: Shaikh Shauna on 10-29-2022 Sodium [Moles/Vol] 136 mmol/L 136-146 [facility] Serum or plasma total biliru bin measurement (mass/volume)Ordered By: Shaikh Shauna on 10-29-2022 Bilirubin [Mass/Vol] 0.6 mg/dL 0.3-1.2 [facility] Serum or plasma total carbon dioxide measurement (moles/volume)Ordered By: Shaikh Shauna on 10-29-2022 CO2 [Moles/Vol] 27.4 mmol/L 22.0-30.0 [facility] Serum or plasma total choles terol/high density lipoprotein (HDL) cholesterol mass ratOrdered By: Shaikh Shauna on 10-29-2022 Cholesterol.total/Apple sterol in HDL [Mass ratio] 5.3 {ratio} <5.0 [facility] Serum or plasma urea nitroge n measurement (mass/volume)Ordered By: Shaikh Shauna on 10-29-2022 Urea nitrogen [Mass/Vol] 15 mg/dL 9-23 [facility] Triglyceride [Mass/volume] i n Serum or PlasmaOrdered By: Shaikh Shauna on 10-29-2022 Triglyceride [Mass/Vol] 285 mg/dL 35-149 [facility] Comment on above: TRIG ATP III CLASSIF ICATIONTRIG less than 150 mg/dL NormalTRIG 150-199 mg/dL Borderline highTRIG 200-500 mg/dL High TRIG greater than 500 mg/dL Very highStandard traceable to the Center for Disease Conrtrol and Prevention (CDC) test method. Urine microalbumin measureme nt with detection limit of 20 mg/L or less (mass/volume)Ordered By: Shaikh Shauna on 10-29-2022 Albumin DL <= 20 mg/L (U) [Mass/Vol] 18.7 mg/dL 0.0-1.8 [facility] Urine microalbumin/creatinin e mass ratioOrdered By: Shaikh Shauna on 10-29-2022 Albumin/Creatinine DL <= 20 mg/L (U) [Mass ratio] 112.0 mg/g 0.0-30.0 [facility] Comment on above: 30-300 mg/g indicate s an increased risk for diabetic nephropathy. Greater than 300 mg/g is consistent with clinical nephropathy. (Am. J. Kidney Disease 1995, 25:107) WBC Auto (Bld) [#/Vol]Ordere d By: Shaikh Shauna on 10-29-2022 WBC (Bld) [#/Vol] 9.8 10*3/uL 4.1-10.5 [facility] CARDIAC SARAH ADMITon 022 CK [Catalytic activity/Vol] 100 U/L Normal 39-308 [facility] Comment on above: Performed By: #### C PENNY, CMP #### Laboratory [address] [place], [place] [address] Dr. Tracy Gutierrez CK.MB [Mass/Vol] 1.18 ng/mL Normal <=3.60 [facility] Comment on above: Performed By: #### C MADM, CMP #### Laboratory [address] [place], [place] [address] Dr. Tracy Gutierrez HSTROP 11.3 pg/mL Normal 4.0-76.1 The Comment on above: Result Comment: CUT- OFF POINTS HAVE BEEN ESTABLISHED BASED ON THE FOURTH UNIVERSAL DEFINITIONS OF MYOCARDIAL INFARCTION. THE UPPER REFERENCE LIMIT (URL) OF TROPONIN, DEFINED THE 99TH PERCENTILE OF cTnI DISTRIBUTION IN A REFERENCE POPULATION, HAS BEEN CONFIRMED THE DECISION THRESHOLD FOR OR DIAGNOSIS. Performed By: #### C PENNY, CMP #### Laboratory [address] [place] [address] Dr. Tracy Gutierrez ERIN 60 ng/mL Normal 16-96 [facility] Comment on above: Performed By: #### C MADM, CMP #### Laboratory [address] [place] [address] [address] Tracy Gutierrez CBC AUTO DIFFon 05-02-2022 BASO # 0.1 103/ul Normal 0.0-0.1 [facility] Comment on above: Performed By: #### C BC #### Laboratory [address] [place] [address] Dr. Tracy Gutierrez Basophils/100 WBC (Bld) 0.6 % Normal 0.2-2.0 [facility] Comment on above: Performed By: #### C BC #### Laboratory [address] [place] [address] Dr. Tracy Gutierrez EO # 0.4 103/ul Normal 0.0-0.7 [facility] Comment on above: Performed By: #### C BC #### Laboratory [address] [place] [address] Dr. Tracy Gutierrez Eosinophils/100 WBC (Bld) 4.1 % Normal 0.9-7.0 [facility] Comment on above: Performed By: #### C BC #### Laboratory [address] [place] [address] Dr. Tracy Gutierrez Erythrocyte distribution width (RBC) [Ratio] 12.7 % Normal 11.0-15.0 [facility] Comment on above: Performed By: #### C BC #### Laboratory [address] [place] [address] Dr. Tracy Gutierrez Hematocrit (Bld) [Volume fraction] 44.9 % Normal 42.0-54.0 [facility] Comment on above: Performed By: #### C BC #### Laboratory [address] [place] [address] Dr. Tracy Gutierrez Hemoglobin (Bld) [Mass/Vol] 14.5 g/dL Normal 14.0-18.0 [facility] Comment on above: Performed By: #### C BC #### Laboratory [address] [place] [address] Dr. Tracy Gutierrez IG # 0.04 10e3/ul Critically high 0.00-0.03 [facility] Comment on above: Performed By: #### C BC #### Laboratory [address] [place] [address] Dr. Tracy Gutierrez IG % 0.4 % Normal 0.0-0.5 [facility] Comment on above: Performed By: #### C BC #### Laboratory [address] [place] [address] Dr. Tracy Gutierrez LYMPH # 2.1 103/ul Normal 1.2-3.8 [facility] Comment on above: Performed By: #### C BC #### Laboratory [address] [place] [address] Dr. Tracy Gutierrez Lymphocytes/100 WBC (Bld) 20.8 % Normal 20.5-60.0 [facility] Comment on above: Performed By: #### C BC #### Laboratory [address] [place] [address] Dr. Tracy Gutierrez MANUAL DIFF REQ NO Normal [facility] Comment on above: Performed By: #### C BC #### Laboratory [address] [place] [address] Dr. Tracy Gutierrez MCH (RBC) [Entitic mass] 27.9 pg Normal 25.9-34.0 [facility] Comment on above: Performed By: #### C BC #### Laboratory [address] [place] [address] Dr. Trcay Gutierrez MCHC (RBC) [Mass/Vol] 32.3 g/dL Normal 29.9-35.2 [facility] Comment on above: Performed By: #### C BC #### Laboratory [address] [place] [address] Dr. Tracy Gutierrez MCV (RBC) [Entitic vol] 86.3 fL Normal 80.0-94.0 [facility] Comment on above: Performed By: #### C BC #### Laboratory [address] [place] [address] Dr. Tracy Gutierrez MONO # 0.7 103/ul Normal 0.3-0.8 [facility] Comment on above: Performed By: #### C BC #### Laboratory [address] [place] [address] [address] Tracy Gutierrez Monocytes/100 WBC (Bld) 7.2 % Normal 1.7-12.0 [facility] Comment on above: Performed By: #### C BC #### Laboratory [address] [place] [address] Dr. Tracy Gutierrez NEUT # 6.9 103/ul Critically high 1.4-6.5 [facility] Comment on above: Performed By: #### C BC #### Laboratory [address] [place] [address] Dr. Tracy Gutierrez Neutrophils/100 WBC (Bld) 66.9 % Normal 43.0-75.0 [facility] Comment on above: Performed By: #### C BC #### Laboratory [address] [place] [address] Dr. Tracy Gutierrez Platelet mean volume (Bld) [Entitic vol] 11.1 fL Normal 9.5-13.5 [facility] Comment on above: Performed By: #### C BC #### Laboratory [address] [place] [address] Dr. Tracy Gutierrez PLT 237 103/ul Normal 150-450 The Comment on above: Performed By: #### C BC #### Laboratory [address] [place] [address] Dr. Tracy Gutierrez RBC 5.20 106/ul Normal 4.70-6.10 [facility] Comment on above: Performed By: #### C BC #### Laboratory [address] [place] [address] Dr. Tracy Gutierrez WBC 10.3 103/ul Normal 4.0-11.0 The Comment on above: Performed By: #### C BC #### Laboratory [address] [place] [address] Dr. Tracy Gutierrez PROF 14(COMP METB)on 022 Albumin [Mass/Vol] 3.7 g/dL Normal 3.4-5.0 [facility] Comment on above: Performed By: #### C PENNY, CMP #### Laboratory [address] [place] [address] [address] Tracy Gutierrez Albumin/Globulin [Mass ratio] 0.9 {ratio} Normal [facility] Comment on above: Performed By: #### C PENNY, CMP #### Laboratory [address] [place] [address] [address] Tracy Gutierrez ALP [Catalytic activity/Vol] 77 U/L Normal 46-116 [facility] Comment on above: Performed By: #### C PENNY, CMP #### Laboratory [address] [place] [address] [address] Tracy Gutierrez ALT [Catalytic activity/Vol] 46 U/L Normal 16-63 [facility] Comment on above: Performed By: #### C PENNY, CMP #### Laboratory [address] [place] [address] [address] Tracy Gutierrez Anion gap [Moles/Vol] 10.7 mmol/L Normal [facility] Comment on above: Performed By: #### C PENNY, CMP #### Laboratory [address] [place] [address] [address] Tracy Gutierrez AST [Catalytic activity/Vol] 40 U/L Critically high 15-37 [facility] Comment on above: Performed By: #### C PENNY, CMP #### Laboratory [address] [place] [address] [address] Tracy Gutierrez Bilirubin [Mass/Vol] 0.5 mg/dL Normal 0.2-1.0 [facility] Comment on above: Performed By: #### C PENNY, CMP #### Laboratory [address] [place] [address] [address] Tracy Gutierrez Calcium [Mass/Vol] 9.4 mg/dL Normal 8.5-10.1 [facility] Comment on above: Performed By: #### C MADM, CMP #### Laboratory [address] [place] [address] [address] Tracy Gutierrez Chloride [Moles/Vol] 102 mmol/L Normal 98-107 [facility] Comment on above: Performed By: #### C MADM, CMP #### Laboratory [address] [place] [address] [address] Tracy Gutierrez CO2 [Moles/Vol] 29.6 mmol/L Normal 21.0-32.0 [facility] Comment on above: Performed By: #### C MADM, CMP #### Laboratory [address] [place] [address] [address] Tracy Gutierrez Creatinine [Mass/Vol] 1.14 mg/dL Normal 0.70-1.30 [facility] Comment on above: Performed By: #### C RICKIEM, CMP #### Laboratory [address] [place] [address] Dr. Tracy Gutierrez EGFR-AF CYPRIOT >60 Normal >=60 [facility] Comment on above: Performed By: #### C RICKIEM, CMP #### Laboratory [address] [place] [address] [address] Tracy Gutierrez EGFR-NON AF CYPRIOT >60 Normal >=60 [facility] Comment on above: Performed By: #### C RICKIEM, CMP #### Laboratory [address] [place] [address] [address] Tracy Gutierrez Globulin (S) [Mass/Vol] 4.1 g/dL Normal [facility] Comment on above: Performed By: #### C RICKIEM, CMP #### Laboratory [address] [place] [address] [address] Tracy Gutierrez Glucose [Mass/Vol] 203 mg/dL Critically high 74-106 [facility] Comment on above: Performed By: #### C MADM, CMP #### Laboratory [address] [place] [address] [address] Tracy Gutierrez Potassium [Moles/Vol] 4.3 mmol/L Normal 3.5-5.1 [facility] Comment on above: Performed By: #### C MADM, CMP #### Laboratory [address] [place] [address] [address] Tracy Gutierrez Protein [Mass/Vol] 7.8 g/dL Normal 6.4-8.2 [facility] Comment on above: Performed By: #### C RICKIEM, CMP #### Laboratory [address] [place] [address] [address] Tracy Gutierrez Sodium [Moles/Vol] 138 mmol/L Normal 136-145 [facility] Comment on above: Performed By: #### C RICKIEM, CMP #### Laboratory [address] [place] [address] [address] Tracy Gutierrez Urea nitrogen [Mass/Vol] 16.0 mg/dL Normal 7.0-18.0 [facility] Comment on above: Performed By: #### C PENNY, CMP #### Laboratory [address] [place] [address] [address] Tracy Gutierrez Urea nitrogen/Creatinine [Mass ratio] 14.0 mg/mg Normal [facility] Comment on above: Performed By: #### C PENNY, CMP #### Laboratory [address] [place] [address] Dr. Tracy Gutierrez XR CHEST 1 Von 05-02-2022 XR CHEST 1 V EXAM: XR CHEST 1 V a t 1621 hours HISTORY: Palpitations COMPARISON: 03/13/2016 TECHNIQUE: AP upright portable chest x-ray FINDINGS: The study is bit limited by the patient's body habitus and technique. The heart is near the upper limits of normal in size without evidence of cardiac decompensation. No acute infiltrate, effusion or pneumothorax is identified. The osseous structures are grossly intact with degenerative changes in the shoulders. IMPRESSION: No acute infiltrate or evidence of cardiac decompensation. The overall appearance of the chest has probably not changed significantly. Electronically authenticated by: NIKUNJ SALES Date: 2022-05-02 16:53 Normal [facility] Comp Metabolic Profon 2020 (cont.) Normal [facility] Comment on above: Result Comment: Aver age GFR for 70 or more years old: 75 mL/min/1.73sq m Chronic Kidney Disease: <60 mL/min/1.73sq m Kidney failure: <15 mL/min/1.73sq m eGFR calculated using average adult body mass. Additional eGFR calculator available at: http://[email or web address]/multiple_crcl_[email or web address] Performed By: #### Randall FAST, CP #### [facility] [address] [place], [place] [id number] Crystal Slicer: Abisai Tellez MD #### LIPR #### [facility] [address] [place] [address] Crystal Slicer: Shaheed Alcocer MD Albumin [Mass/Vol] 4.1 g/dL Normal 3.5-5.2 [facility] Comment on above: Performed By: #### Randall FAST, CP #### [facility] [address] [place], [place] [id number] Crystal Slicer: Abisai Tellez MD #### LIPR #### [address] [address] Crystal Slicer: Shaheed Alcocer MD Alkaline Phos 78 U/L Normal 40-129 [facility] Comment on above: Performed By: #### Randall FAST, CP #### [facility] [address] [place] [address] Crystal Slicer: Abisai Tellez MD #### LIPR #### [address] [address] Crystal Slicer: Shaheed Alcocer MD ALT [Catalytic activity/Vol] 34 U/L Normal 5-41 [facility] Comment on above: Performed By: #### Randall FAST, CP #### [facility] [address] [place] [address] Crystal Slicer: Abisai Tellez MD #### LIPR #### [address] [address] Crystal Slicer: Shaheed Alcocer MD Anion gap [Moles/Vol] 12 mmol/L Normal 9-17 [facility] Comment on above: Performed By: #### Randall FAST, CP #### [facility] [address] [place], [place] [id number] Crystal Slicer: Abisai Tellez MD #### LIPR #### [address] [phone] Crystal Slicer: Shaheed Alcocer MD AST [Catalytic activity/Vol] 28 U/L Normal <40 [facility] Comment on above: Performed By: #### Randall FAST, CP #### [facility] [address] [place], [place] [id number] Crystal Slicer: Abisai Tellez MD #### LIPR #### [address] [phone] Crystal Slicer: Shaheed Alcocer MD Bilirubin [Mass/Vol] 0.31 mg/dL Normal 0.30-1.20 [facility] Comment on above: Performed By: #### Randall FAST, CP #### [facility] [address] [place], [place] [phone] Crystal Slicer: Abisai Tellez MD #### LIPR #### [address] [address] Crystal Slicer: Shaheed Alcocer MD BUN/CRE Ratio 23 High 9-20 [facility] Comment on above: Performed By: #### Randall FAST, CP #### [facility] [address] [place], [place] [phone] Crystal Slicer: Abisai Tellez MD #### LIPR #### [address] [id number] Crystal Slicer: Shaheed Alcocer MD Calcium [Mass/Vol] 8.9 mg/dL Normal 8.6-10.4 [facility] Comment on above: Performed By: #### Randall FAST, CP #### [facility] [address] [place], [place] [phone] Crystal Slicer: Abisai Tellez MD #### LIPR #### [address] [id number] Crystal Slicer: Shaheed Alcocer MD Chloride [Moles/Vol] 96 mmol/L Low 98-107 [facility] Comment on above: Performed By: #### Randall FAST, CP #### [facility] [address] [place], [place] [phone] Crystal Slicer: Abisai Tellez MD #### LIPR #### [address] [phone] Crystal Slicer: Shaheed Alcocer MD CO2 [Moles/Vol] 25 mmol/L Normal 20-31 [facility] Comment on above: Performed By: #### Randall FAST, CP #### [facility] [address] [place], [place] [phone] Crystal Slicer: Abisai Tellez MD #### LIPR #### [address] [phone] Crystal Slicer: Shaheed Alcocer MD Creatinine [Mass/Vol] 0.96 mg/dL Normal 0.70-1.20 [facility] Comment on above: Performed By: #### Randall FAST, CP #### [facility] [address] [place], [place] [phone] Crystal Slicer: Abisai Tellez MD #### LIPR #### [address] [phone] Crystal Slicer: Shaheed Alcocer MD GFR, Amer >60 Normal >60 [facility] Comment on above: Performed By: #### Randall FAST, CP #### [facility] [address] [place], [place] [phone] Crystal Slicer: Abisai Tellez MD #### LIPR #### [facility] [address] [place] [address] Crystal Slicer: Shaheed Alcocer MD GFR,non Amer >60 Normal >60 [facility] Comment on above: Performed By: #### Randall FAST, CP #### [facility] [address] [place] [address] Crystal Slicer: Abisai Tellez MD #### LIPR #### [facility] [address] [place] [address] Crystal Slicer: Shaheed Alcocer MD Glucose [Mass/Vol] 157 mg/dL High 70-99 [facility] Comment on above: Performed By: #### Randall FAST, CP #### [facility] [address] [place] [address] Crystal Slicer: Abisai Tellez MD #### LIPR #### [address] [address] Crystal Slicer: Shaheed Alcocer MD Potassium [Moles/Vol] 4.7 mmol/L Normal 3.7-5.3 [facility] Comment on above: Performed By: #### Randall FAST, CP #### [facility] [address] [place] [address] Crystal Slicer: Abisai Tellez MD #### LIPR #### [facility] [address] [place] [address] Crystal Slicer: Shaheed Alcocer MD Protein [Mass/Vol] 7.4 g/dL Normal 6.4-8.3 [facility] Comment on above: Performed By: #### Randall FAST, CP #### [facility] [address] [place] [address] Crystal Slicer: Abisai Tellez MD #### LIPR #### [address] [address] Crystal Slicer: Shaheed Alcocer MD Sodium [Moles/Vol] 133 mmol/L Low 135-144 [facility] Comment on above: Performed By: #### Z FAST, CP #### [facility] [address] [place] [address] Crystal Slicer: Abisai Tellez MD #### LIPR #### [facility] [address] [place] [address] Crystal Slicer: Shaheed Alcocer MD Urea nitrogen [Mass/Vol] 22 mg/dL Normal 8-23 [facility] Comment on above: Performed By: #### Randall FAST, CP #### [facility] [address] [place] [address] Crystal Slicer: Abisai Tellez MD #### LIPR #### [address] [address] Crystal Slicer: Shaheed Alcocre MD Albumin/Glob Ratio NOT REPORTED Normal 1.0-2.5 [facility] Comment on above: Performed By: #### Randall FAST, CP #### [facility] [address] [place] [address] Crystal Slicer: Abisai Tellez MD #### LIPR #### [address] [address] Crystal Slicer: Shaheed Alcocer MD Staging: NOT REPORTED Normal [facility] Comment on above: Performed By: #### Z FAST, CP #### [facility] [address] [place], [place] [phone] Crystal Slicer: Abisai Tellez MD #### LIPR #### [facility] [address] [place] [address] Crystal Slicer: Shaheed Alcocer MD Lipid Profileon 09-19-2021 Cholesterol [Mass/Vol] 135 mg/dL Normal <200 [facility] Comment on above: Result Comment: Cholesterol Guidelines: <200 Desirable 200-240 Borderline >240 Undesirable Performed By: #### Randall FAST, CP #### [facility] [address] [place] [address] Crystal Slicer: Abisai Tellez MD #### LIPR #### [facility] [employer] [address] [place] [address] Crystal Slicer: Shaheed Alcocer MD Cholesterol in HDL [Mass/Vol] 30 mg/dL Low >40 [facility] Comment on above: Result Comment: HDL Guidelines: <40 Undesirable 40-59 Borderline >59 Desirable Performed By: #### Randall FAST, CP #### [facility] [address] [place] [address] Crystal Slicer: Abisai Tellez MD #### LIPR #### [address] [address] Crystal Slicer: Shaheed Alcocer MD Cholesterol in LDL [Mass/Vol] 80 mg/dL Normal 0-130 [facility] Comment on above: Result Comment: LDL Guidelines: <100 Desirable 100-129 Near to/above Desirable 130-159 Borderline >159 Undesirable Direct (measured) LDL and calculated LDL are not interchangeable tests. Performed By: #### Randall FAST, CP #### [facility] [address] [place] [address] Crystal Slicer: Abisai Tellez MD #### LIPR #### [facility] [employer] [address] [place] [address] Crystal Slicer: Shaheed Alcocer MD Cholesterol.total/Apple sterol in HDL [Mass ratio] 4.5 {ratio} Normal <5 [facility] Comment on above: Performed By: #### Randall FAST, CP #### [facility] [address] [place] [address] Crystal Slicer: Abisai Tellez MD #### LIPR #### [facility] [employer] [address] [place] [id number] Crystal Slicer: Shaheed Alcocer MD Triglyceride [Mass/Vol] 126 mg/dL Normal <150 [facility] Comment on above: Result Comment: Triglyceride Guidelines: <150 Desirable 150-199 Borderline 200-499 High >499 Very high Based on AHA Guidelines for fasting triglyceride, July 2012. Performed By: #### Z FAST, CP #### [facility] [address] [place], [place] [phone] Crystal Slicer: Abisai Tellez MD #### LIPR #### [facility] [address] [place], [place] [phone] Crystal Slicer: Shaheed Alcocer MD Cholesterol,VLDL NOT REPORTED Normal 11-04 [facility] Comment on above: Performed By: #### Z FAST, CP #### [facility] [address] [place], [place] [phone] Crystal Slicer: Abisai Tellez MD #### LIPR #### [facility] [address] [place], [place] [phone] Crystal Slicer: Shaheed Alcocer MD Patient fasting?on 1 Patient fasting? YES Normal [facility] Comment on above: Performed By: #### Z FAST, CP #### [facility] [address] [place], [place] [phone] Crystal Slicer: Abisai Tellez MD #### LIPR #### [facility] [address] [place] [address] Crystal Slicer: Shaheed Alcocer MD COVID Quick Testingon 2020 Result Negative [employer] Other Quick Fluon 09-16-2021 FLUAV Ab CF (S) [Titer] Negative N [employer] Other FLUBV Ab CF (S) [Titer] Negative N [employer] Other [id number]-[id number] 07-20-2021 SARS-CoV-2 (COVID-19) RNA GARRY+probe Ql (Unsp spec) Normal [facility] Comment on above: Performed By: #### C OVID #### [facility] [address] [place], [place] [phone] Crystal Slicer: Shaheed Alcocer MD [facility] [address] [place] [address] [place] [address] Crystal Slicer: Abisai Tellez MD SARS-CoV-2 (COVID-19) RNA GARRY+probe Ql (Unsp spec) Not detected Normal NOTDET [facility] Comment on above: Result Comment: The specimen is NEGATIVE for SARS-CoV-2, the novel coronavirus associated with COVID-19. A negative result does not rule out COVID-19. Carole SARS-CoV-2 for use on the Carole [id number]/[id number] [employer] is a real-time RT-PCR test intended for the qualitative detection of nucleic acids from SARS-CoV-2 in clinician-collected nasal, nasopharyngeal, and oropharyngeal swab specimens from individuals who meet COVID-19 clinical and/or epidemiological criteria. Carole SARS-CoV-2 is for use only under Emergency Use Authorization (EUA) in laboratories certified under Clinical Laboratory Improvement Amendments of 1988 (CLIA), 42 U.S.C. ?263a, that meet requirements to perform high or moderate complexity tests. An individual without symptoms of COVID-19 and who is not shedding SARS-CoV-2 virus would expect to have a negative (not detected) result in this assay. Fact sheet for Healthcare Providers: https://www.fda.gov/media/477062/download Fact sheet for Patients: https://www.fda.gov/media/144240/download METHODOLOGY: RT-PCR Performed By: #### C OVID #### [facility] [address] [place], [place] [id number] Crystal Slicer: Shaheed Alcocer MD [facility] [address] [place] [address] [place] [address] Crystal Slicer: MD AIYANA Yao-CoV-2on 07-19-2021 SARS-CoV-2 (COVID-19) RNA GARRY+probe Ql (Unsp spec) .NASOPHARYNGEAL SWAB Normal [facility] Comment on above: Performed By: #### C OVID #### [facility] [address] [place] [address] Crystal Slicer: Shaheed Alcocer MD [facility] [address] [place] [address] Crystal Slicer: Abisai Tellez MD US SCREENING FOR AAAon 08-02 US SCREENING FOR AAA EXAMINATION: RETROPERITONEAL ULTRASOUND OF THE AORTA 08/02/2020 COMPARISON: None HISTORY: ORDERING SYSTEM PROVIDED HISTORY: Screening for AAA (abdominal aortic aneurysm) FINDINGS: Exam is suboptimal due to patient morbid obesity. Aorta: Proximal: Not visualized Mid: 1.4 x 1.6 cm Distal: 0.8 x 1.1 cm Iliacs: Bilateral iliac arteries are not visualized. IMPRESSION: No evidence of aneurysm in the visualized abdominal aorta. Interpreted by: Wesley Aquino MD Signed by: Wesley Aquino MD 08/02/20 Final result Normal [facility] VL DUP CAROTID BILATERALon 0 12-10-2019 [facility] l Vascular Carotid Procedure Patient Name LATANYA Date of Study 12/08/2019 FEMI W Date of 1950 Gender Male Age 69 year(s) Race Room Number Corporate ID [id number] # Patient Acct [id number] # MR # [id number] Flying Ii Instructor ELENI Fenton Interpreting Physician Diego Luis MD Referring Referring Physician Castillo Clark Nurse Practitioner Procedure Type of Study: Cerebral: Carotid, Carotid Scan Bilateral. Patient Status:Out Patient. Comments:INDICATIONS: 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) ([facility]) I83.9, R.29.810 Basic Classification of ICA Stenosis: PSV - Peak Systolic Velocity Normal: No plaque or calcification identified, no elevation of PSV Mild: <50% spectral broadening without increased PSV Moderate: 50 - 69% PSV >125 - <230 cm/sec Severe: 70 - 99% PSV >230 cm/sec Critical: 80 - 99% PSV >230cm/sec and/or End Diastolic Velocities >120cm/sec. Conclusions Summary 16-49% stenosis of the internal carotid arteries bilaterally. No flow detected within the left vertebral artery. Signature - - - - Findings: Right Impression: Left Impression: Limited resolution was noted in the There is intimal thickening in the ICA. CCA and an dense homogeneous plaque in the carotid Bulb and There is intimal thickening in the CCA prox ICA. and an irregular heterogeneous plaque in the carotid Bulb and origin of the Peak systolic velocities are ICA. within normal limits. Peak systolic velocities are within Spectral broadening is noted the normal limits. prox. ICA. Spectral broadening is noted the prox. Vertebral artery flow is not ICA. located. Vertebral artery flow is antegrade. Velocities are measured in cm/s ; Diameters are measured in cm Carotid Right Measurements + +------- -+--------+--------+- ------+ +- + !Location !PSV !EDV !Angle !RI !%Stenosis !Tortuosity ! + +------- -+--------+--------+- ------+ +- + !Prox CCA !97.5 !13.37 ! !0.86 ! ! ! + +------- -+--------+--------+- ------+ +- + !Mid CCA !86.19 !11.13 ! !0.87 ! ! ! + +------- -+--------+--------+- ------+ +- + !Dist CCA !63.28 !12.81 ! !0.8 ! ! ! + +------- -+--------+--------+- ------+ +- + !Bulb !50.34 !8.93 ! !0.82 ! ! ! + +------- -+--------+--------+- ------+ +- + !Prox ICA !52.08 !10.7 ! !0.79 ! ! ! + +------- -+--------+--------+- ------+ +- + !Mid ICA !76.22 !20.58 ! !0.73 ! ! ! + +------- -+--------+--------+- ------+ +- + !Dist ICA !69.75 !19.28 ! !0.72 ! ! ! + +------- -+--------+--------+- ------+ +- + !Prox ECA !82.13 !9.02 ! !0.89 ! ! ! + +------- -+--------+--------+- ------+ +- + !Vertebral !66.05 !17.6 ! !0.73 ! ! ! + +------- -+--------+--------+- ------+ +- + - There is antegrade vertebral flow noted on the right side. - Additional Measurements:ICAPSV/C CAPSV 0.78.ICAEDV/CCAEDV 1.54. Carotid Left Measurements + +-------- -+--------+--------+- ------+ +- + !Location !PSV !EDV !Angle !RI !%Stenosis !Tortuosity ! + +-------- -+--------+--------+- ------+ +- + !Prox CCA !78.97 !11.59 ! !0.85 ! ! ! + +-------- -+--------+--------+- ------+ +- + !Mid CCA !80.77 !13.09 ! !0.84 ! ! ! + +-------- -+--------+--------+- ------+ +- + !Dist CCA !56.9 !11.72 ! !0.79 ! ! ! + +-------- -+--------+--------+- ------+ +- + !Bulb !61.78 !15.38 ! !0.75 ! ! ! + +-------- -+--------+--------+- ------+ +- + !Prox ICA !97.3 !27.6 ! !0.72 ! ! ! + +-------- -+--------+--------+- ------+ +- + !Mid ICA !116.44 !29.4 ! !0.75 ! ! ! + +-------- -+--------+--------+- ------+ +- + !Dist ICA !84.13 !23.28 ! !0.72 ! ! ! + +-------- -+--------+--------+- ------+ +- + !Prox ECA !77.15 !11.13 ! !0.86 ! ! ! + +-------- -+--------+--------+- ------+ +- + - There is absent vertebral flow noted on the left side. - Additional Measurements:ICAPSV/C CAPSV 1.47.ICAEDV/CCAEDV 2.54. [facility] [place], [place] [employer], [employer] Incoming Cardio Results From [facility]/Ge - 12/10/2019 1:16 PM [facility] Vascular Carotid Procedure Patient Name LATANYA Date of Study 12/08/2019 FEMI Rinaldi Date of 1950 Gender Male Age 69 year(s) Race Room Number Corporate ID [id number] # Patient Acct [id number] # MR # [id number] [employer] Instructor ELENI Fenton Interpreting Physician Diego Luis MD Referring Referring Physician Castillo Clark Nurse Practitioner Procedure Type of Study: Cerebral: Carotid, Carotid Scan Bilateral. Patient Status:Out Patient. Comments:INDICATIONS: 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) ([facility]) I83.9, R.29.810 Basic Classification of ICA Stenosis: PSV - Peak Systolic Velocity Normal: No plaque or calcification identified, no elevation of PSV Mild: <50% spectral broadening without increased PSV Moderate: 50 - 69% PSV >125 - <230 cm/sec Severe: 70 - 99% PSV >230 cm/sec Critical: 80 - 99% PSV >230cm/sec and/or End Diastolic Velocities >120cm/sec. Conclusions Summary 16-49% stenosis of the internal carotid arteries bilaterally. No flow detected within the left vertebral artery. Signature - - - - Findings: Right Impression: Left Impression: Limited resolution was noted in the There is intimal thickening in the ICA. CCA and an dense homogeneous plaque in the carotid Bulb and There is intimal thickening in the CCA prox ICA. and an irregular heterogeneous plaque in the carotid Bulb and origin of the Peak systolic velocities are ICA. within normal limits. Peak systolic velocities are within Spectral broadening is noted the normal limits. prox. ICA. Spectral broadening is noted the prox. Vertebral artery flow is not ICA. located. Vertebral artery flow is antegrade. Velocities are measured in cm/s ; Diameters are measured in cm Carotid Right Measurements + +------- -+--------+--------+- ------+ +- + !Location !PSV !EDV !Angle !RI !%Stenosis !Tortuosity ! + +------- -+--------+--------+- ------+ +- + !Prox CCA !97.5 !13.37 ! !0.86 ! ! ! + +------- -+--------+--------+- ------+ +- + !Mid CCA !86.19 !11.13 ! !0.87 ! ! ! + +------- -+--------+--------+- ------+ +- + !Dist CCA !63.28 !12.81 ! !0.8 ! ! ! + +------- -+--------+--------+- ------+ +- + !Bulb !50.34 !8.93 ! !0.82 ! ! ! + +------- -+--------+--------+- ------+ +- + !Prox ICA !52.08 !10.7 ! !0.79 ! ! ! + +------- -+--------+--------+- ------+ +- + !Mid ICA !76.22 !20.58 ! !0.73 ! ! ! + +------- -+--------+--------+- ------+ +- + !Dist ICA !69.75 !19.28 ! !0.72 ! ! ! + +------- -+--------+--------+- ------+ +- + !Prox ECA !82.13 !9.02 ! !0.89 ! ! ! + +------- -+--------+--------+- ------+ +- + !Vertebral !66.05 !17.6 ! !0.73 ! ! ! + +------- -+--------+--------+- ------+ +- + - There is antegrade vertebral flow noted on the right side. - Additional Measurements:ICAPSV/C CAPSV 0.78.ICAEDV/CCAEDV 1.54. Carotid Left Measurements + +-------- -+--------+--------+- ------+ +- + !Location !PSV !EDV !Angle !RI !%Stenosis !Tortuosity ! + +-------- -+--------+--------+- ------+ +- + !Prox CCA !78.97 !11.59 ! !0.85 ! ! ! + +-------- -+--------+--------+- ------+ +- + !Mid CCA !80.77 !13.09 ! !0.84 ! ! ! + +-------- -+--------+--------+- ------+ +- + !Dist CCA !56.9 !11.72 ! !0.79 ! ! ! + +-------- -+--------+--------+- ------+ +- + !Bulb !61.78 !15.38 ! !0.75 ! ! ! + +-------- -+--------+--------+- ------+ +- + !Prox ICA !97.3 !27.6 ! !0.72 ! ! ! + +-------- -+--------+--------+- ------+ +- + !Mid ICA !116.44 !29.4 ! !0.75 ! ! ! + +-------- -+--------+--------+- ------+ +- + !Dist ICA !84.13 !23.28 ! !0.72 ! ! ! + +-------- -+--------+--------+- ------+ +- + !Prox ECA !77.15 !11.13 ! !0.86 ! ! ! + +-------- -+--------+--------+- ------+ +- + - There is absent vertebral flow noted on the left side. - Additional Measurements:ICAPSV/C CAPSV 1.47.ICAEDV/CCAEDV 2.54. [place] HEAD WO CONTRASTon 2019 No acute intracrania l abnormality. [place], [place] EXAMINATION: CT OF THE HEAD WITHOUT CONTRAST 12/08/2019 4:02 pm TECHNIQUE: CT of the head was performed without the administration of intravenous contrast. Dose modulation, iterative reconstruction, and/or weight based adjustment of the mA/kV was utilized to reduce the radiation dose to as low as reasonably achievable. COMPARISON: CT 04/21/2010. MRI 06/04/2010. HISTORY: ORDERING SYSTEM PROVIDED HISTORY: 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) ([facility]) TECHNOLOGIST PROVIDED HISTORY: Left facial droop with poor memory. R/O right parietal stroke Initial evaluation. FINDINGS: BRAIN/VENTRICLES: There is no acute intracranial hemorrhage, mass effect or midline shift. No abnormal extra-axial fluid collection. The pollard-white differentiation is maintained without evidence of an acute infarct. There is no evidence of hydrocephalus. Minimal scattered atherosclerosis of the intracranial vasculature. ORBITS: The visualized portion of the orbits demonstrate no acute abnormality. SINUSES: The visualized paranasal sinuses and mastoid air cells demonstrate no acute abnormality. SOFT TISSUES/SKULL: No acute abnormality of the visualized skull or soft tissues. [place], [place] [employer], [employer] Incoming Radiant Results From [facility] - 12/08/2019 4:41 PM EST EXAMINATION: CT OF THE HEAD WITHOUT CONTRAST 12/08/2019 4:02 pm TECHNIQUE: CT of the head was performed without the administration of intravenous contrast. Dose modulation, iterative reconstruction, and/or weight based adjustment of the mA/kV was utilized to reduce the radiation dose to as low as reasonably achievable. COMPARISON: CT 04/21/2010. MRI 06/04/2010. HISTORY: ORDERING SYSTEM PROVIDED HISTORY: 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) ([facility]) TECHNOLOGIST PROVIDED HISTORY: Left facial droop with poor memory. R/O right parietal stroke Initial evaluation. FINDINGS: BRAIN/VENTRICLES: There is no acute intracranial hemorrhage, mass effect or midline shift. No abnormal extra-axial fluid collection. The pollard-white differentiation is maintained without evidence of an acute infarct. There is no evidence of hydrocephalus. Minimal scattered atherosclerosis of the intracranial vasculature. ORBITS: The visualized portion of the orbits demonstrate no acute abnormality. SINUSES: The visualized paranasal sinuses and mastoid air cells demonstrate no acute abnormality. SOFT TISSUES/SKULL: No acute abnormality of the visualized skull or soft tissues. IMPRESSION: No acute intracranial abnormality. [place], [place] Glucose, Whole Bloodon 05-31 Glucose [Mass/Vol] 113 mg/dL High 65 - 99 mg/dL [place], [place] Interpretation and review of laboratory results Abnormal [place], [place] Progress Noteon 04-13-2018 HIM IP Note OR Cylinder Honer Normal [facility] Progress Noteon 01-01-2018 HIM IP Note OR Cylinder Honer Normal [facility] HIM IP Note OR Cylinder Honer Normal [facility] CBCon 08-03-2017 Erythrocyte distribution width Auto Ratio (RBC) 13.9 % Normal 12.5-15.4 [facility] Comment on above: Performed By: #### C BC ####[facility] [place] [address] Erythrocytes (RBC) 5.09 10*6/uL Normal 4.5-5.9 [facility] Comment on above: Performed By: #### C BC ####[facility] [place] [address] Hematocrit (HCT) 44.0 % Normal 41-53 [facility] Comment on above: Performed By: #### C BC ####[address] [address] Hemoglobin mass conc (Bld) 14.2 g/dL Normal 13.5-17.5 [facility] Comment on above: Performed By: #### C BC ####[address] [address] MCH 27.9 pg Normal 26-34 [facility] Comment on above: Performed By: #### C BC ####[address] [address] MCHC mass conc (RBC) 32.3 g/dL Normal 31-37 [facility] Comment on above: Performed By: #### C BC ####[address] [address] MCV 86.3 fL Normal 80-100 [facility] Comment on above: Performed By: #### C BC ####[address] [address] Platelet mean volume (PMV) 9.2 fL Normal 6.0-12.0 [facility] Comment on above: Result Comment: [address] [place] [address] Performed By: #### C BC ####[address] [address] Platelets 170 10*3/uL Normal 140-450 [facility] Comment on above: Performed By: #### C BC ####[address] [address] WBC (Leukocytes) 9.4 10*3/uL Normal 3.5-11.0 [facility] Comment on above: Performed By: #### C BC ####[address] [place] [address] Comp Metabolic Profon 2016 Aspartate aminotransferase (AST) 31 U/L Normal <40 [facility] Comment on above: Performed By: #### L IPR, CP ####[address] [address] (cont.) Normal [facility] Comment on above: Result Comment: Aver age GFR for 60-69 years old: 85 mL/min/1.73sq mChronic Kidney Disease: <60 mL/min/1.73sq mKidney failure: <15 mL/min/1.73sq meGFR calculated using average adult body mass. Additional eGFR calculator available at:[email or web address] [facility] [address] [place] [address] Performed By: #### L IPR, CP ####[address] [address] Alanine aminotransferase (ALT) 34 U/L Normal 5-41 [facility] Comment on above: Performed By: #### L IPR, CP ####[address] [address] Albumin 3.5 g/dL Normal 3.5-5.2 [facility] Comment on above: Performed By: #### L IPR, CP ####[facility] [place] [address] Albumin/Globulin Ratio 1.0 {ratio} Normal 1.0-2.5 M [facility] Comment on above: Performed By: #### L IPR, CP ####[address] [address] Alkaline Phos 82 U/L Normal 40-129 [facility] Comment on above: Performed By: #### L IPR, CP ####[address] [address] Anion gap 12 mmol/L Normal 9-17 [facility] Comment on above: Performed By: #### L IPR, CP ####[address] [address] Bilirubin Ql (U) 0.57 mg/dL Normal 0.3-1.2 [facility] Comment on above: Performed By: #### L IPR, CP ####[address] [address] Calcium 9.0 mg/dL Normal 8.6-10.4 [facility] Comment on above: Performed By: #### L IPR, CP ####[address] [address] Chloride 100 mmol/L Normal 98-107 [facility] Comment on above: Performed By: #### L IPR, CP ####[address] [address] CO2 28 mmol/L Normal 20-31 [facility] Comment on above: Performed By: #### L IPR, CP ####[address] [address] Creatinine 0.95 mg/dL Normal 0.70-1.20 [facility] Comment on above: Performed By: #### L IPR, CP ####[address] [address] GFR, Amer >60 Normal >60 [facility] Comment on above: Performed By: #### L IPR, CP ####[address] [address] GFR,non Amer >60 Normal >60 [facility] Comment on above: Performed By: #### L IPR, CP ####[address] [place] [address] Glucose mass conc 125 mg/dL High 70-99 [facility] Comment on above: Performed By: #### L IPR, CP ####[address] [address] Potassium molar conc 4.7 mmol/L Normal 3.7-5.3 [facility] Comment on above: Performed By: #### L IPR, CP ####[address] [address] Protein 6.9 g/dL Normal 6.4-8.3 [facility] Comment on above: Performed By: #### L IPR, CP ####[address] [address] Sodium 140 mmol/L Normal 135-144 [facility] Comment on above: Performed By: #### L IPR, CP ####[address] [address] Urea nitrogen 18 mg/dL Normal - [facility] Comment on above: Performed By: #### L IPR, CP ####[address] [address] BUN/CRE Ratio NOT REPORTED Normal - [facility] Comment on above: Performed By: #### L IPR, CP ####[address] [address] Staging: NOT REPORTED Normal [facility] Comment on above: Performed By: #### L IPR, CP ####[address] [address] Discharge Summaryon 08-03-20 17 HIM IP Note OR Cylinder Honer Normal [facility] Lipid Profileon 08-03-2017 Cholesterol 143 mg/dL Normal <200 [facility] Comment on above: Result Comment: Chol esterol Guidelines: <200 Desirable 200-240 Borderline >240 Undesirable Performed By: #### L IPR, CP ####[address] [address] Cholesterol to HDL Ratio 4.9 {ratio} Normal <5 [facility] Comment on above: Performed By: #### L IPR, CP ####[facility] [address] [place] [address] HDL Cholesterol 29 mg/dL Low >40 [facility] Comment on above: Result Comment: HDL Guidelines: <40 Undesirable 40-59 Borderline >59 Desirable Performed By: #### L IPR, CP ####[address] [address] LDL Cholesterol 58 mg/dL Normal 0-130 [facility] Comment on above: Result Comment: LDL Guidelines: <100 Desirable 100-129 Near to/above Desirable 130-159 Borderline >159 UndesirableDirect (measured) LDL and calculated LDL are not interchangeable tests. Performed By: #### L IPR, CP ####[address] [address] Triglyceride 282 mg/dL High <150 [facility] Comment on above: Result Comment: Trig lyceride Guidelines: <150 Desirable 150-199 Borderline 200-499 High >499 Very high Based on AHA Guidelines for fasting triglyceride, July 2012.[employer] [address] [place] [address] Performed By: #### L IPR, CP ####[address] [address] Cholesterol in VLDL mass conc NOT REPORTED Normal 1-30 [facility] Comment on above: Performed By: #### L IPR, CP ####[facility] [address] [place] [address] Brain Natri. Peptideon 08-02 BNP Normal [facility] Comment on above: Result Comment: Pro- BNP Reference Range:Rule Out: <300Grey Zone: Age <50 300-450 Age 50-75 300-900 Age >75 300-1800Usually represents mild to moderate HF but other cardiopulmonary causes cannot be ruled out.Rule In: Age <50 >450 Age 50-75 >900 Age >[address] [address] Performed By: #### B ENGLISH FACULTY MEMBER, TROPI, TSH, MG, PT ####[address] [address] BNP 347 pg/mL High <300 [facility] Comment on above: Result Comment: Pro- BNP results cannot be compared to BNP results. Performed By: #### B ENGLISH FACULTY MEMBER, TROPI, TSH, MG, PT ####[address] [address] History and Physicalon 08-02 HIM IP Note OR Cylinder Honer Normal [facility] Magnesiumon 08-02-2017 Magnesium 1.8 mg/dL Normal 1.6-2.6 [facility] Comment on above: Result Comment: [address] [address] Performed By: #### B ENGLISH FACULTY MEMBER, TROPI, TSH, MG, PT ####[address] [address] PTon 08-02-2017 INR Coag RelTime (PPP) 0.9 {INR} Normal [facility] Comment on above: Result Comment: Ther apeutic Range: Moderate Anticoagulant Intensity: INR = 2.0-3.0 High Anticoagulant Intensity: INR = 2.5-3.[address] [address] Performed By: #### B ENGLISH FACULTY MEMBER, TROPI, TSH, MG, PT ####[address] [address] Prothrombin time (PT) Coag time (PPP) 9.9 s Normal 9.4-12.6 [facility] Comment on above: Performed By: #### B ENGLISH FACULTY MEMBER, TROPI, TSH, MG, PT ####[address] [address] Thyroid Stim. Horm.on 2016 Thyroid stimulating hormone (TSH) 1.15 m[IU]/L Normal 0.30-5.00 [facility] Comment on above: Result Comment: [address] [address] Performed By: #### B ENGLISH FACULTY MEMBER, TROPI, TSH, MG, PT ####[address] [address] Troponinon 08-02-2017 Troponin I.cardiac mass conc Normal [facility] Comment on above: Result Comment: Refe rence Range: <0.03 Within reference range. 0.03-0.09 Possible myocardial damage.Repeat at appropriate intervals to rule out chronic elevation. >= 0.10 Indicative of myocardial damage.[address] [address] Performed By: #### T ROPI ####[address] [address] Troponin T.cardiac mass conc ug/L Normal <0.03 [facility] Comment on above: Result Comment: Trop onin T results cannot be compared to Troponin-I results. Performed By: #### T ROPI ####[address] [address] Troponin I.cardiac mass conc Normal [facility] Comment on above: Result Comment: Refe rence Range: <0.03 Within reference range. 0.03-0.09 Possible myocardial damage.Repeat at appropriate intervals to rule out chronic elevation. >= 0.10 Indicative of myocardial damage.[facility] [employer] [address] [place] [address] [place] [address] Performed By: #### T ROPI ####[address] [address] Troponin T.cardiac mass conc ug/L Normal <0.03 [facility] Comment on above: Result Comment: Trop onin T results cannot be compared to Troponin-I results. Performed By: #### T ROPI ####[address] [address] Troponin I.cardiac mass conc Normal [facility] Comment on above: Result Comment: Refe rence Range: <0.03 Within reference range. 0.03-0.09 Possible myocardial damage.Repeat at appropriate intervals to rule out chronic elevation. >= 0.10 Indicative of myocardial damage.[address] [address] Performed By: #### T ROPI ####[address] [address] Troponin T.cardiac mass conc ug/L Normal <0.03 [facility] Comment on above: Result Comment: Trop onin T results cannot be compared to Troponin-I results. Performed By: #### T ROPI ####[address] [address] Troponin I.cardiac mass conc Normal [facility] Comment on above: Result Comment: Refe rence Range: <0.03 Within reference range. 0.03-0.09 Possible myocardial damage.Repeat at appropriate intervals to rule out chronic elevation. >= 0.10 Indicative of myocardial damage.[facility] [employer] [facility] [place] [address] Performed By: #### B ENGLISH FACULTY MEMBER, TROPI, TSH, MG, PT ####[address] [address] Troponin T.cardiac mass conc ug/L Normal <0.03 [facility] Comment on above: Result Comment: Trop onin T results cannot be compared to Troponin-I results. Performed By: #### B ENGLISH FACULTY MEMBER, TROPI, TSH, MG, PT ####[facility] [place] [address] Discharge Summaryon 07-11-20 17 HIM IP Note OR Cylinder Honer Normal [facility] History and Physicalon 07-10 HIM IP Note OR Cylinder Honer Normal [facility] Vital Signs Date Time Vital Sign Value Performing Clinician Facility 09-16-2021 10:45-0500 Body height 172.72 cm Pat Rogelmond Other [employer] Other 09-16-2021 10:45-0500 Body mass index (BMI) [Ratio] 41.05 kg/m2 Pat Rogelmond Other [employer] Other 09-16-2021 10:45-0500 Body temperature 99 [degF] Pat Jesus Other [employer] Other 09-16-2021 10:45-0500 Body weight 122.47 kg Pat Jesus Other [employer] Other 09-16-2021 10:45-0500 Respiratory rate 18 /min Pat Rogelmond Other [employer] Other 09-16-2021 10:45-0500 SaO2% (BldA) [Mass fraction] 96 % Pat Rogelmond Other [employer] Other 05-31-2019 10:25-0400 BP Diastolic 78 mm[Hg] [employer] , [place] 05-31-2019 10:25-0400 BP Systolic 126 mm[Hg] [facility] [place] 05-31-2019 10:25-0400 Pulse (Heart Rate) 76 /min Felix [employer]- [place], [place] 05-31-2019 10:25-0400 Pulse Oximetry 95 % Felix Cason [facility]- [place] , [place] 05-31-2019 10:25-0400 Respiratory Rate 16 /min [facility] [place] 05-31-2019 09:53-0400 Body Temperature 96.8 [degF] [facility] [place] 05-31-2019 07:24-0400 BMI (Body Mass Index) 39.43 kg/m2 Felix Cason [facility]- [place], [place] 05-31-2019 07:24-0400 Body weight 121.11 kg [facility] , [place] 05-31-2019 07:24-0400 Height 175.3 cm Felix [facility] , [place] Encounters Encounter Date Encounter Type Care Provider Facility Start: 2023 End: 2023 ambulatory SHAIKH SHAUNA Not Available Start: 04-07-2023 End: 04-07-2023 ambulatory [facility] Start: 11-26-2022 ambulatory [facility] Facility: H1 Start: 11-19-2022 End: 11-20-2022 ambulatory [facility] Facility:H1 Start: 10-30-2022 End: 10-30-2022 ambulatory [facility] Start: 10-29-2022 End: 10-29-2022 ambulatory Shaikh Shauna Facility:[facility] Start: 10-29-2022 End: 10-29-2022 ambulatory MD Shaikh Mcnally Work Phone: [facility] Work Phone: Start: 10-29-2022 End: 10-29-2022 Patient encounter procedure MD Shaikh Mcnally Work Phone: [facility] [address] Work Phone: Start: 05-02-2022 End: 05-02-[address] DOCTOR RODRIGES Facility:H1 Start: 09-19-2021 End: 09-20-2021 ambulatory [facility] Start: 09-16-2021 (URG) Urgent Care Visit Pat hunter [facility] Start: 09-16-2021 End: 09-16-2021 ambulatory Pat Rogelmond Other [employer] Other Start: 07-19-2021 End: 07-20-2021 ambulatory TONA Cason [facility] Start: 07-19-2021 End: 07-19-2021 Subsequent hospital visit by physician Suki Covid Screening Schedule [facility] Covid Screening Comment on above: COVID Start: 08-02-2020 End: 08-05-2020 [facility] Start: 12-08-2019 End: 12-10-2019 Subsequent hospital visit by physician [facility] Vascular Imaging Room [facility] Comment on above: 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) Start: 05-31-2019 End: 05-31-2019 Subsequent hospital visit by physician Felix Back Work Phone: [facility] Start: 03-04-2018 End: 03-05-2018 Ambulatory DEFAULT PHYSICIAN Facility:[facility] Start: 08-02-2017 End: 08-03-2017 Evaluation and management of inpatient NENA NUNEZ [facility] Start: 07-10-2017 End: 07-11-2017 [facility] Date Procedure Procedure Detail Performing Clinician Start: 08-02-2020 Ultrasound exam AAA screen TONA DANIELS Start: 12-08-2019 Duplex scan extracra nial art compl bi study Castillo Clark Work Phone: Start: 12-08-2019 Ct head/brain w/o co ntrast material Castillo Clark Work Phone: Start: 05-31-2019 Gluc bld gluc mntr d ev cleared fda spec home use Felix Back Work Phone: Start: 08-03-2017 DISCHARGE PATIENT NENA NUNEZ Start: 08-03-2017 EKG 12-LEAD NENA Mane Start: 08-03-2017 DISCHARGE PATIENT NENA NUNEZ Start: 08-03-2017 DIET CARDIAC NENA Mane Start: 08-03-2017 COMPREHENSIVE METABO LIC PANEL NENA NUNEZ Start: 08-03-2017 Lipid panel NENA Mane Start: 08-03-2017 PREVIOUS SPECIMEN NENA NUNEZ Start: 08-03-2017 INITIATE OXYGEN THER APY PROTOCOL NENA NUNEZ Start: 08-03-2017 CBC NENA Mane Start: 08-03-2017 INTAKE AND OUTPUT NENA NUNEZ Start: 08-02-2017 TROPONIN NENA Mane Start: 08-02-2017 TROPONIN NENA Mane Start: 08-02-2017 INITIATE OXYGEN THER APY PROTOCOL NENA NUNEZ Start: 08-02-2017 TROPONIN NENA Mane Start: 08-02-2017 BRAIN NATRIURETIC PEPTIDE NENA NUNEZ Start: 08-02-2017 MAGNESIUM NENA Mane Start: 08-02-2017 PROTIME-INR NENA Mane Start: 08-02-2017 TROPONIN NENA Mane Start: 08-02-2017 TSH WITHOUT REFLEX RENETTA NUNEZ Start: 08-02-2017 NOTIFY PHYSICIAN (SPECIFY) NENA NUNEZ Start: 08-02-2017 OT EVAL AND TREAT NENA NUNEZ Start: 08-02-2017 PLACE INTERMITTENT PNEUMATIC COMPRESSION DEVICE NENA NUNEZ Start: 08-02-2017 PT EVAL AND TREAT NENA NUNEZ Start: 08-02-2017 TOBACCO CESSATION EDUCATION NENA NUNEZ Start: 08-02-2017 DAILY WEIGHTS NENA CALDERÓN AM Start: 08-02-2017 FULL CODE NENA Mane Start: 08-02-2017 INITIATE OXYGEN THER APY PROTOCOL NENA NUNEZ Start: 08-02-2017 INTAKE AND OUTPUT NENA NUNEZ Start: 08-02-2017 IP CONSULT TO CARDIOLOGY NENA NUNEZ Start: 08-02-2017 REASON FOR NO MECHAN ICAL VTE PROPHYLAXIS NENA NUNEZ Start: 08-02-2017 TELEMETRY MONITORING RK NUNEZ Start: 08-01-2017 PATIENT STATUS (DIRECT) NENA NUNEZ Start: 07-11-2017 POCT GLUCOSE NENA Mane Start: 07-11-2017 POC GLUCOSE FINGERSTICK NENA NUNEZ Start: 07-11-2017 DISCHARGE PATIENT NENA NUNEZ Start: 07-11-2017 POCT GLUCOSE NENA Mane Start: 07-11-2017 INITIATE OXYGEN THER APY PROTOCOL NENA NUNEZ Start: 07-11-2017 POCT GLUCOSE NENA Mane Start: 07-10-2017 POCT GLUCOSE NENA Mane Start: 07-10-2017 DIET CARDIAC NENA Mane Start: 07-10-2017 POC GLUCOSE FINGERSTICK NENA NUNEZ Start: 07-10-2017 PATIENT STATUS (FROM ED OR OR/PROCEDURAL) NENA NUNEZ Start: 07-10-2017 CHLORIDE (POC) NENA WHITE Start: 07-10-2017 CREATININE W/GFR POI NT OF CARE NENA NUNEZ Start: 07-10-2017 HGB/HCT NENA Mane Start: 07-10-2017 POCT GLUCOSE NENA Mane Start: 07-10-2017 POTASSIUM (POC) NENA RAO Start: 07-10-2017 SODIUM (POC) NENA Mane Start: 07-10-2017 FULL CODE NENA Mane Start: 07-10-2017 INITIATE OXYGEN THER APY PROTOCOL NENA NUNEZ Start: 07-10-2017 VERIFY INFORMED CONSENT NENA NUNEZ Start: 07-10-2017 POC CHEMISTRY (NA,K,ICA,GLU,CALC HCT/HGB,LACTATE,CREA,CL) NENA NUNEZ Start: 07-10-2017 DIAGNOSTIC CARDIAC C ATH LAB PROCEDURE NENA NUNEZ Plan of Treatment Date Care Activity Detail Author Start: 05-31-2029 Screening for malignant neoplasm of colon Colon cancer screen colonoscopy [employer] Phone: Start: 07-18-2022 End: 07-18-2022 Patient encounter procedure 07/18/2022 Office Visit Pulmonology Steve Lynn, [address] [id number] [facility] Start: 03-20-2022 Diabetic foot examination Diabetic foot exam [employer] Phone: Start: 03-20-2022 Diabetic microalbuminuria test Diabetic microalbuminuria test [employer] Phone: Start: 03-20-2022 Hemoglobin A1c measurement A1C test (Diabetic or Prediabetic) [employer] Phone: Start: 11-20-2021 Diabetic retinal exam Diabetic retinal exam [employer] Phone: Start: 10-11-2021 End: 10-11-2021 Patient encounter procedure 10/11/2021 Office Visit Neurology Castillo Clark MD [address] [place] [address] [place] [address] [facility] of [facility] Start: 09-19-2021 End: 09-19-2021 Patient encounter procedure 09/19/2021 Office Visit Family Medicine Tona Daniels MD [address] [place] [address] [facility] Start: 07-27-2021 Annual Wellness Visit (AWV) Annual Wellness Visit (AWV) [employer] Phone: Start: 06-06-2021 Influenza vaccination Flu vaccine (#1) [employer] Phone: Start: 07-02-2020 A1C test (Diabetic or Prediabetic) A1C test (Diabetic or Prediabetic) [facility] [place] Start: 07-02-2020 Creatinine measurement Creatinine monitoring [employer] Phone: Start: 07-02-2020 Creatinine monitoring Creatinine monitoring [facility] [place] Start: 07-02-2020 Diabetic microalbuminuria test Diabetic microalbuminuria test [facility] [place] Start: 07-02-2020 Lipid panel Lipid screen [employer] Phone: Start: 07-02-2020 Lipid screen Lipid screen [facility] [place] Start: 07-02-2020 Potassium monitoring Potassium monitoring [place], [place] Start: 06-29-2020 End: 06-29-2020 Office Visit 06/29/2020 Office Visit Pulmonology Steve Lynn, DO [address] [facility] [address] [place], [place] [id number] [facility] Start: 05-31-2020 Colon cancer screen colonoscopy Colon cancer screen colonoscopy [place], [place] Start: 04-13-2020 Colon cancer screen colonoscopy Colon cancer screen colonoscopy [place] Start: 04-01-2020 [object Object] Diabetic foot exam [place] Start: 02-03-2020 End: 02-03-2020 Office Visit 02/03/2020 Office Visit Neurology Castillo Clark MD [address] [place] [address] [place] [address] [facility] Start: 07-05-2019 End: 07-05-2019 Office Visit 07/05/2019 Office Visit Family Medicine Tona Daniels MD [address] [place] [address] [facility] [place] Start: 07-02-2019 A1C test (Diabetic or Prediabetic) A1C test (Diabetic or Prediabetic) [place] Start: 06-17-2019 End: 06-17-2019 Office Visit 06/17/2019 Office Visit Pulmonology Steve Lynn DO [address] [facility] [address] [place], [place] [id number] [facility] [place] Start: 06-06-2019 Influenza vaccination Flu vaccine (#1) [place] Start: 05-25-2019 Diabetic microalbuminuria test Diabetic microalbuminuria test [place] Start: 04-15-2019 Pneumococcal 65+ years Vaccine (2 of 2 - PPSV23) Pneumococcal 65+ years Vaccine (2 of 2 - PPSV23) [place] Start: 03-21-2019 Annual Wellness Visit (AWV) Annual Wellness Visit (AWV) [place] Start: 02-11-2019 Lipid screen Lipid [place] Start: 11-15-2018 Diabetic retinal exam Diabetic retinal exam [place], [place] Start: 08-03-2018 Creatinine monitoring Creatinine monitoring [place] Start: 08-03-2018 Potassium monitoring Potassium monitoring [place] Start: 05-09-2017 Shingles Vaccine (2 of 3) Shingles Vaccine (2 of 3) [place], [place] Start: 2013 Annual Wellness Visit (AWV) Annual Wellness Visit (AWV) [place], [place] Start: 2000 Screening for malignant neoplasm of lung Low dose CT lung screening [facility] Phone: Start: 1969 DTaP/Tdap/Td vaccine (1 - Tdap) DTaP/Tdap/Td vaccine (1 - Tdap) [place], [place] Start: 1969 Hepatitis B vaccine (1 of 3 - Risk 3-dose series) Hepatitis B vaccine (1 of 3 - Risk 3-dose series) [place], [place] Start: 1950 AAA screen AAA screen [place], [place] Start: 1950 Hepatitis C screen Hepatitis C screen [place], [place] Start: 1950 Hepatitis C screening Hepatitis C screen [facility] Phone: End: 07-19-2021 COVID-19 COVID-19 Lab Routine Covid 1 Occurrences starting 07/19/2021 until 07/19/2021 [facility] Phone: Comment on above: 1 Occurrences starting 07/19/2021 until 07/19/2021 COVID-19 COVID-19 Lab Rou missy COVID 07/19/2021 12:11 PM EDT [facility] Phone: End: 05-31-2019 POCT glucose POCT glucose Point of Care Testing Routine One Time for 1 Occurrences starting 05/31/2019 until 05/31/2019 [place], [place] Comment on above: One Time for 1 Occurrences starting 05/07 until 05/31/2019 Surgical Pathology Surgical Path ology Lab Routine ONE TIME for 1 Occurrences starting 05/31/2019 [place] Comment on above: ONE TIME for 1 Occurrences starting 05/07 Immunizations Immunization Date Immunization Notes Care Provider Mariaelena jenkins 06-29-2021 COVID-19, Pfizer, PF , 30mcg/0.3mL Mthz Schedule [facility] [employer] Work Phone: 07-16-2020 influenza, high dose seasonal, preservative-free Mthz Schedule [facility] [employer] Work Phone: 07-16-2020 Influenza, Quadv, adjuvanted, 65 yrs +, IM, PF (Fluad) Mthz Schedule [facility] Work Phone: 07-05-2019 influenza, injectabl e, quadrivalent, preservative free [facility], [place] 07-05-2019 pneumococcal polysac charide vaccine, 23 valent [facility], [place] 03-14-2017 zoster vaccine, live [facility], [place] 07-08-2016 Influenza Vaccine, unspecified formulation [facility] , [place] 04-05-2016 pneumococcal conjuga te vaccine, 13 valent [facility], [place] 07-26-2015 influenza virus vacc ine, unspecified formulation [facility] , [place] 04-15-2014 pneumococcal polysac charide vaccine, 23 valent [facility], [place] Payers Date Payer Category Payer Self-pay 2021 Unknown [id number] 2020 Medicare [id number] 2019 Private Health Insurance [id number] 2018 Private Health Insurance AETNA AETNA SENIOR MEDICARE SUPP xxxxxxxxxx 2018-Present [phone] [address] [place] [address] xxxxxxxxxx [id number] 2016 Unknown [id number] 2015 Medicare [id number] 2014 Medicare MEDICARE MEDICAR E PART A AND B xxxxxxxxxxx 2014-Present [phone] [place] [address] xxxxxxxxxxx [id number] 2014 Medicare [id number] 1950 Unknown [id number] 1950 Unknown [id number] 1950 Unknown [id number] 1950 Unknown [id number] 1950 Unknown [id number] 1950 Unknown [id number] 1950 Unknown [id number] Unknown Unknown [id number] Social History Date Type Detail Facility Start: 05-31-2019 End: 07-19-2021 Tobacco smoking status NHIS Former smoker [place], [place] End: 03-21-2010 History of tobacco use Current [place]oker [place] Start: 05-31-2019 End: 07-19-2021 Cigarettes smoked current (pack per day) - Reported [place] Start: 05-31-2019 Alcohol intake No [place], [place] Start: 1950 Sex Assigned At Not on file M [place] Start: 11-04-2019 End: 07-19-2021 Alcohol intake Current non-drinker of alcohol (finding) [place] Start: 07-19-2021 Tobacco use and exposure Never used [employer] Start: 03-20-2021 History SDOH Financial 5 [employer] Work Phone: Start: 03-20-2021 History SDOH Food Worry 1 [employer] Work Phone: Exposure to SARS-CoV -2 (event) Not sure [employer] Start: 1950 Sex Assigned At Male F [facility] Medical Equipment Procedure Code Equipment Code Equipment Origin al Text Equipment Identifier Dates 1 strip by Other route Test 2 times a day & as needed for symptoms of irregular blood glucose. [id number] 1 each by Does n ot apply route daily [id number] Test BS daily DX : E11.65 [id number] Start: 04-06-2020 Progress note 04-07-2023 Note Date & Type Note Facility 04-07-[address] [facility] Cardiology Clinic Note Chief Complaint: Patient here for 6 mo follow up CAD, afib, PVD, and hypertension. Had stress test back in Nov 2022. No recent labs or imaging. Denies chest pain. States his ALLISON is better than at last apt in Oct 2022. Palpitations have resolved. HPI: Femi Pelaez is a 72 y.o. male New patient being seen via telephone call to establish care. He has prior hx of CAD w/ PCI, afib, SVT, CVA, COPD, and DM. He used to see [facility] cardiology in [place]. Then saw Dr. Mattson in [place]. Now going to establish care with [place]. Says his BP averages around 130-140's systolic. Denies chest pain. Has ALLISON with stairs. Has intermittent LE edema. Feels palpitations at times. HPI: From prior records: Femi Pelaez is a 72 y.o. male gentleman who has a history of coronary artery disease. He had anteroseptal ischemia on a stress test on July 26, 2010 and had a catheterization August 08, 2010 that showed 95% in the LAD beyond the diagonal, the right coronary and circumflex were unremarkable. He had angioplasty in the LAD, placing 3 0 x 23 mm Promus stent with a good end result. On April 2012 he had a CVA with residual right-sided droop. On December 04, 2012 he had chest pain and chest discomfort and was found to be in SVT at 170 beats per minute. A stress test showed a small area of reversibility in the inferolateral wall and we placed him on Imdur and Cardizem. He had a repeat stress test on April 20, 2014 and on May 03, 2014 had SVT and we increased his Cardizem to 180 mg daily. He then went to cardiac rehab and did well. I saw him on March 15, 2016 and he had one episode of SVT lasting approximately 2 minutes with it terminating with Valsalva. He had been hot and dehydrated on that day. He had 1 more episode of SVT while he was working outside approximately 2-3 weeks ago. It lasted approximately 10 minutes. He took a Cardizem and drank some cold water. His heart rate was in the 190-200 range. His blood pressure dropped to 80/78 and he rested and hydrated and felt better later that day. He has been working on a new 4-story house that they plan on turning into a bed and breakfast this coming year. His energy level overall has been good and he has been having no chest pain or chest discomfort. He has had no PND, orthopnea or pedal edema. No syncope, near syncope. When he has his episodes of SVT he will develop a mild chest heaviness. He had an appointment with Dr. Tipton on Friday and his hemoglobin A1c was good at 6.7 and they made no change in medications. He has had no hospitalizations or procedures since I saw him in March of 2016. RISK FACTORS: Known CAD positive, PTCA positive, CAD positive, hypertension positive, hyperlipidemia positive, smoking negative, diabetes positive, peripheral vascular disease negative. MEDICATIONS AT HOME: He is currently on aspirin 81 mg daily, Lipitor 80 mg daily, Cardizem 30 mg p.r.n. Cartia or diltiazem 180 mg daily, Neurontin 100 mg daily, Imdur 30 mg b.i.d., metformin 500 mg daily, metoprolol XL 25 mg half a tablet b.i.d., Prilosec 20 mg daily, Altace 5 mg b.i.d. PAST MEDICAL HISTORY: T and A as a child, CVA as stated previously, history of SVT, hypertension, hyperlipidemia, colon surgery in 2002, hyperlipidemia and hyperglycemia, which is controlled with diet and Glucophage. FAMILY HISTORY: Father of natural causes. Mother in childhood. 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 Does not exercise. He built a tricycle out of a [email or web address] and sold it 2 weeks after he built it. He now bought a 52 Chevrolet with a short block. He is planning on putting it on a Chevy pickup chassis with a large block engine. He is also redoing a house in [place] that is 4 stories high and has 2 1/2 bathrooms. They are planning on turning it into a bed and breakfast next year. Does have a barn also which he is redoing. UPDATE 04/07/2033 Still having shortness of breath with exertion; this is no worse and no better No chest pain No orthopnea, no paroxysmal tunnel dyspnea, no lower extremity edema Cardiology ROS: Review of Systems Cardiovascular: Positive for dyspnea on exertion and leg swelling. Musculoskeletal: Positive for arthritis, back pain and joint pain. All other systems reviewed and are negative. Past Medical History He has a past medical history of Angina pectoris (CMS/HCC), Atrial fibrillation (CMS/HCC), CAD (coronary artery disease), COPD (chronic obstructive pulmonary disease) (CMS/HCC), CVA (cerebral vascular accident) (CMS/HCC), DM (diabetes mellitus) (CMS/HCC), Glaucoma, Hyperlipidemia, PVD (peripheral vascular disease) (CMS/HCC), and SVT (supraventricular tachycardia) (CMS/HCC). Surgical History He has a past surgical history that includes Cardiac catheterization; Cardiac electrophysiology mapping and ablation; and Colon surgery. Social History He reports that (more content not included)... [facility] Clinical Note 11-19-2022 Note Date & Type Note Facility 11-19-2022 Note CARDIAC STRESS TEST Requesting Physician: Procedure Date:11/19/2022 This was a Lexiscan Stress Test with myocardial perfusion imaging performed at the on 11/19/2022. Informed consent was obtained. An intravenous line was secured. The patient was attached to electrocardiographic monitoring. Lexiscan 0.4 mg was infused intravenously, followed by administration of Cardiolite. The patient went on to obtain myocardial perfusion images. Resting heart rate was 70 BPM, and maximal heart rate was 85 BPM. Resting blood pressure was 148/80 and maximal blood pressure was 150/78. Baseline ECG showed normal sinus rhythm with non-specific ST changes. ECG following infusion of Lexiscan and during recovery showed non-specific ST changes in the inferior leads. SUMMARY OF THE FINDINGS: 1. No evidence of ischemic ECG changes following infusion of Lexiscan. 2. Myocardial perfusion images will be reported separately. The Progress note 10-30-2022 Note Date & Type Note Facility 10-30-[address] [facility] Cardiology Clinic Note Chief Complaint: New patient being seen via telephone call to establish care. He has prior hx of CAD w/ PCI, afib, SVT, CVA, COPD, and DM. He used to see [facility] cardiology in [place]. Then saw Dr. Mattson in [place]. Now going to establish care with [place]. Says his BP averages around 130-140's systolic. Denies chest pain. Has ALLISON with stairs. Has intermittent LE edema. Feels palpitations at times. HPI: From prior records: Femi Pelaez is a 72 y.o. male gentleman who has a history of coronary artery disease. He had anteroseptal ischemia on a stress test on July 26, 2010 and had a catheterization August 08, 2010 that showed 95% in the LAD beyond the diagonal, the right coronary and circumflex were unremarkable. He had angioplasty in the LAD, placing 3 0 x 23 mm Promus stent with a good end result. On April 2012 he had a CVA with residual right-sided droop. On December 04, 2012 he had chest pain and chest discomfort and was found to be in SVT at 170 beats per minute. A stress test showed a small area of reversibility in the inferolateral wall and we placed him on Imdur and Cardizem. He had a repeat stress test on April 20, 2014 and on May 03, 2014 had SVT and we increased his Cardizem to 180 mg daily. He then went to cardiac rehab and did well. I saw him on March 15, 2016 and he had one episode of SVT lasting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
[2023-10-21 16:23] LABS: Basophils Percent Auto 0.2 % (0.2-2.0); Eosinophils Percent Auto 0.1 % (0.9-7.0); Hematocrit 45.1 % (42.0-54.0); Hemoglobin 14.7 g/dL (14.0-18.0); Immature Granulocytes Abs Auto 0.19 10^3/uL (0.00-0.03); Immature Granulocytes Pct Auto 1.3 % (0.0-0.5); Lymphocytes Percent Auto 13.4 % (20.5-60.0); Mean Corpuscular HGB Conc 32.6 g/dL (29.9-35.2); Mean Corpuscular Hemoglobin 27.7 pg (25.9-34.0); Mean Corpuscular Volume 84.9 fL (80.0-94.0); Mean Platelet Volume 10.9 fL (9.5-13.5); Monocytes Absolute Auto 0.7 10^3/uL (0.3-0.8); Monocytes Percent Auto 4.7 % (1.7-12.0); Neutrophils Absolute Auto 12.1 10^3/uL (1.4-6.5); Neutrophils Percent Auto 80.3 % (43.0-75.0); Platelet Count 254 10^3/uL (150-450); Red Blood Count 5.31 10^6/uL (4.70-6.10); Red Cell Distribution Width 12.9 % (11.0-15.0); White Blood Count 15.1 10^3/uL (4.0-11.0)
[2023-10-21 17:01] LABS: Percent Iron Saturation 13.1 %
[2023-10-23 05:07] LABS: Transferrin 307 mg/dL (177-329)
== END 2023-10-21 15:42 | disposition home or self-care (01) ==
LOC: LAB 15:43
PROVIDERS: PCP Internal Medicine; Visit Provider Internal Medicine
DX: D64.9 Anemia, unspecified (principal)
CPT/HCPCS: 36415; 82607; 82728; 82746; 83540; 83550; 84466; 85025

== ENCOUNTER 2024-01-01 11:39 | Outpatient (OUT) | payer OTHER, SELFPAY ==
[2024-01-01 12:18] LABS: Basophils Absolute Auto 0.1 10^3/uL (0.0-0.1); Basophils Percent Auto 0.7 % (0.2-2.0); Eosinophils Absolute Auto 0.5 10^3/uL (0.0-0.7); Eosinophils Percent Auto 5.6 % (0.9-7.0); Hematocrit 44.3 % (42.0-54.0); Hemoglobin 14.3 g/dL (14.0-18.0); Immature Granulocytes Abs Auto 0.03 10^3/uL (0.00-0.03); Immature Granulocytes Pct Auto 0.4 % (0.0-0.5); Lymphocytes Absolute Auto 2.4 10^3/uL (1.2-3.8); Lymphocytes Percent Auto 28.8 % (20.5-60.0); Mean Corpuscular HGB Conc 32.3 g/dL (29.9-35.2); Mean Corpuscular Hemoglobin 28.8 pg (25.9-34.0); Mean Corpuscular Volume 89.1 fL (80.0-94.0); Mean Platelet Volume 10.7 fL (9.5-13.5); Monocytes Absolute Auto 0.6 10^3/uL (0.3-0.8); Monocytes Percent Auto 7.4 % (1.7-12.0); Neutrophils Absolute Auto 4.8 10^3/uL (1.4-6.5); Neutrophils Percent Auto 57.1 % (43.0-75.0); Platelet Count 212 10^3/uL (150-450); Red Blood Count 4.97 10^6/uL (4.70-6.10); Red Cell Distribution Width 12.9 % (11.0-15.0); White Blood Count 8.4 10^3/uL (4.0-11.0)
[2024-01-01 12:33] LABS: Estimated Average Glucose 183 mg/dL
[2024-01-01 13:30] LABS: Alanine Aminotransferase 52 U/L (16-63); Albumin Globulin Ratio 0.9; Albumin Level 3.4 g/dL (3.4-5.0); Alkaline Phosphatase 90 U/L (46-116); Anion Gap 11.4; Aspartate Amino Transferase 49 U/L (15-37); BUN Creatinine Ratio 12.7; Bilirubin Total 0.5 mg/dL (0.2-1.0); Calcium 9.1 mg/dL (8.5-10.1); Carbon Dioxide 32.1 mmol/L (21.0-32.0); Chloride 98 mmol/L (98-107); Chol HDL Ratio 3.9; Cholesterol 150 mg/dL (<=200); Estimated GFR (African America >60 (>=60); Estimated GFR (Non-African Ame >60 (>=60); Globulin 3.9 g/dL; Glucose 138 mg/dL (74-106); HDL Cholesterol 38 mg/dL (40-60); Potassium 4.5 mmol/L (3.5-5.1); Sodium 137 mmol/L (136-145); Total Protein 7.3 g/dL (6.4-8.2); Triglycerides 324 mg/dL (<=150); VLDL CHOLESTEROL 64.8 mg/dL
== END 2024-01-01 11:40 | disposition home or self-care (01) ==
LOC: LAB 11:41
PROVIDERS: PCP Internal Medicine; Visit Provider Internal Medicine
DX: E11.42 Type 2 diabetes mellitus with diabetic polyneuropathy (principal); J44.9 Chronic obstructive pulmonary disease, unspecified; I10 Essential (primary) hypertension; I48.91 Unspecified atrial fibrillation; E78.5 Hyperlipidemia, unspecified
CPT/HCPCS: 36415; 80053; 80061; 83036; 85025

== ENCOUNTER 2024-03-22 15:45 | Outpatient (OUT) | payer OTHER, SELFPAY ==
--- OUTSIDE RECORDS SUMMARY | 2024-03-22 16:09 | XMS_ITS | CCD ---
Author Organization [facility] Care Team Providers Care Acupressure Therapist Name Role Phone PHYSICIAN, DEFAULT Unavailable Unavailable PHYSICIAN, DEFAULT Unavailable Unavailable HAKAM, NENA Unavailable Unavailable HAKAM, NENA Unavailable Unavailable ENRIQUETA, LESLI Unavailable Unavailable KALIDIA, AMEER Unavailable Unavailable RAMIREZ, HOSSAMELDIN I Unavailable Unavailab le ENRIQUETA LESLI Unavailable Unavailable RAMIREZ, HOSSAMELDIN I Unavailable Unavailab le RAMIREZ, HOSSAMELDIN I Unavailable Unavailab Eusebio Marrero Primary Care Provider [phone] Eusebio Daniels MD Primary Care Provider EUSEBIO DANIELS Primary Care Unavailable EUSEBIO DANIELS Referring Unavailable EUSEBIO DANIELS Primary Care Unavailable EUSEBIO DANIELS Referring Unavailable EUSEBIO DANIELS Primary Care Unavailable Pat Jesus Unavailable [...] EHAB Consulting Unavailable ELTAHAWY, EHAB Admitting Unavailable ELTASACHINY, EHAB Attending Unavailable SHAIKH Юлия MCNALLY Primary Care Unavailable ELTAHAWY, EHAB Attending Unavailable ELTAHAWY, EHAB Attending Unavailable Kate Cabrera Primary Care Physician [phone] SHAIKH MCNALLY Referring Unavailable Ross WEINBERG Attending Unavailable SHAIKH MCNALLY Attending Unavailable SHAIKH MCNALLY Attending Unavailable SHAIKH MCNALLY Attending Unavailable SHAIKH MCNALLY Attending Unavailable Allergies Allergy Classification Reported Allergen(s) Allergy Type Date of Onset Reaction(s) Facility (1 source) No Known Medication Allergies; Translations: [No Known Medication Allergies] Propensity to adverse reactions (disorder) [facility] Repository Medications Current Medications Medication Drug Class(es) Dates Sig (Normalized) Sig (Original) Albuterol (2 sources) beta2-Adrenergic Agonist Start: 12-19-2023 take 2 puff(s) by inhalation every four hours Albuterol (Eqv-ProAir HFA) 2 puff(s), Inhalation, q4hr Shortness of breath or wheezing, Refill(s) 0 Start Date: 12/19/23 Status: Ordered Start: 09-16-2021 take 2 puff(s) by in halation four times daily as needed Albuterol Sulfate HFA 108 (90 Base) MCG/ACT 2 puffs Inhalation qid prn Sep, Active albuterol 0.833 mg/ml / ipratropium bromide 0.167 mg/ml inhalation solution (1 source) Anticholinergic, beta2-Adrenergic Agonist Start: 12-19-2023 DuoNeb 2.5 mg-0.5 mg/3 mL Soln-Inh 3 mL, NEB, QID, Refill(s) 0 Start Date: 12/19/23 Status: Ordered apixaban 5 mg oral tablet (6 sources) Factor Xa Inhibitor Start: 12-19-2023 take 1 tablet by mouth twice daily Eliquis 5 mg oral tablet 5 mg = 1 tab(s), Oral, BID, Refills(s) 0 Start Date: 12/19/23 Status: Ordered Eliquis Active take 1 tablet by mouth twice giovanni ly apixaban (ELIQUIS) 5 MG TABS tablet Take 5 mg by mouth 2 times daily 0 Active aspirin 81 mg delayed release oral tablet (6 sources) Platelet Aggregation Inhibitor, Nonsteroidal Anti-inflammatory Drug Start: 12-19-2023 take 1 tablet by mouth once daily aspirin 81 mg Oral EC Tab 81 mg = 1 tab(s), Oral, Daily, Refills(s) 0 Start Date: 12/19/23 Status: Ordered Aspirin 81 Activ e take 1 tablet by mouth once emily y aspirin EC 81 MG EC tablet Take 81 mg by mouth daily 0 Active atorvastatin 80 mg oral tablet (6 sources) HMG-CoA Reductase Inhibitor Start: 12-19-2023 take 1 tablet by mouth once daily atorvastatin 80 mg Tab 80 mg = 1 tab(s), Oral, Daily, Refills(s) 0 Start Date: 12/19/23 Status: Ordered Start: 02-12-2021 take 1 tablet by hector th once [...] by mouth daily 0 Active dilTIAZem hydrochloride 30 mg oral tablet (6 sources) Calcium Channel Tiffani Start: 12-19-2023 take 2 tablets by mouth twice daily diltiazem 30 mg Tab 60 mg = 2 tab(s), Oral, BID, Refills(s) 0 Start Date: 12/19/23 Status: Ordered Start: 06-18-2019 take 1 tablet by hector th twice daily diltiazem (CARDIZEM) 60 MG tablet TAKE 1 TABLET BY MOUTH TWICE A DAY 6 06/18/2019 Active Diltiazem CD Act renetta take 1 tablet by hector th twice daily diltiazem (CARDIZEM) 30 MG tablet Take 30 mg by mouth 2 times daily 0 Active donepezil hydrochloride 10 mg oral tablet (3 sources) Start: 12-19-2023 take 1 tablet by mouth once daily at bedtime Aricept 10 mg Tab 10 mg = 1 tab(s), Oral, Once a day (at bedtime), Refills(s) 0 Start Date: 12/19/23 Status: Ordered Start: 06-04-2021 take 1 tablet by hector th once daily donepezil (ARICEPT) 10 MG tablet TAKE 1 TABLET BY MOUTH EVERY DAY AT NIGHT 30 tablet 5 06/04/2021 Active Aricept Active gabapentin 300 mg oral capsule (3 sources) Anti-epileptic Agent Start: 12-19-2023 take 1 capsule by mouth three times daily gabapentin 300 mg Cap 300 mg = 1 cap(s), Oral, TID, Refills(s) 0 Start Date: 12/19/23 Status: Ordered Start: 03-20-2021 End: 09-16-2021 gabapentin (NEURONTIN) 300 M G capsule Take 1 capsule by mouth nightly for 180 days. Intended supply: 30 days 30 capsule 5 03/20/2021 09/16/2021 Active Gabapentin Activ e glimepiride 2 mg oral tablet (6 sources) Sulfonylurea Start: 12-19-2023 take 1 tablet by mouth once daily Amaryl 2 mg Tab 2 mg = 1 tab(s), Oral, Daily, Refills(s) 0 Start Date: 12/19/23 Status: Ordered Start: 03-15-2021 take 1 tablet by hector th once daily before breakfast glimepiride (AMARYL) 2 MG tablet Indications: Controlled type 2 diabetes mellitus with hyperglycemia, without long-term current use of insulin ([facility]) TAKE 1 TABLET BY MOUTH EVERY DAY BEFORE BREAKFAST 90 tablet 1 03/15/2021 Active Start: 08-24-2019 take 1 tablet by hector th once daily before breakfast glimepiride (AMARYL) 2 MG tablet Indications: Controlled type 2 diabetes mellitus with hyperglycemia, without long-term current use of insulin ([facility]) Take 1 tablet by mouth every morning (before breakfast) 30 tablet 5 08/24/2019 Active Start: 04-01-2019 take 1 tablet by hector th once daily before breakfast glimepiride (AMARYL) 2 MG tablet Indications: Controlled type 2 diabetes mellitus with hyperglycemia, without long-term current use of insulin ([facility]) Take 1 tablet by mouth every morning [...] hyperglycemia, without long-term current use of insulin ([facility]) TAKE 1 TABLET BY MOUTH TWICE A DAY WITH MEALS 180 tablet 1 02/09/2021 Active Start: 09-27-2019 take 1 tablet by hector th twice daily at mealtime metFORMIN (GLUCOPHAGE) 1000 MG tablet Indications: Controlled type 2 diabetes mellitus with hyperglycemia, without long-term current use of insulin ([facility]) Take 1 tablet by mouth 2 times daily (with meals) 60 tablet 5 09/27/2019 Active Start: 04-01-2019 take 1 tablet by hector th twice daily at mealtime metFORMIN (GLUCOPHAGE) 1000 MG tablet Indications: Controlled type 2 diabetes mellitus with hyperglycemia, without long-term current use of insulin ([facility]) Take 1 tablet by mouth 2 times daily (with meals) 60 tablet 5 04/01/2019 Active metFORMIN HCl Ac tive nitroglycerin 0.4 mg sublingual tablet (3 sources) Nitrate Vasodilator Start: 12-19-2023 nitroglyce rin 0.4 mg sublingual Tab 0.4 mg = 1 tab(s), SubLingual, q5min, PRN for chest pain, Refills(s) 0 Start Date: 12/19/23 Status: Ordered Start: 12-16-2019 nitroGLYCERIN (NITROSTAT) 0.[address] 1 tablet under the tongue every 5 minutes as needed for Chest pain 25 tablet 1 12/16/2019 Active Nitroglycerin Ac tive omeprazole 20 mg delayed release oral capsule (6 sources) Proton Pump Inhibitor Start: 12-19-2023 take 1 capsule by mouth once daily omeprazole 20 mg Cap-DR 20 mg = 1 cap(s), Oral, Daily, Refills(s) 0 Start Date: 12/19/23 Status: Ordered Start: 03-15-2021 take 1 capsule by mo uth once [...] 1 tablet Orally bid for 5 day(s) Sep, Active primidone 50 mg oral tablet (2 sources) Anti-epileptic Agent Start: 12-19-2023 take 1 tablet by mouth once daily at bedtime Mysoline 50 mg Tab 50 mg = 1 tab(s), Oral, Once a day (at bedtime), Refills(s) 0 Start Date: 12/19/23 Status: Ordered Primidone Active ramipril 10 mg oral capsule (6 sources) Angiotensin Converting Enzyme Inhibitor Start: 12-19-2023 take 1 capsule by mouth once daily ramipril 10 mg Cap 10 mg = 1 cap(s), Oral, Daily, Refills(s) 0 Start Date: 12/19/23 Status: Ordered Start: 02-09-2021 take 1 capsule by mo ut twice daily ramipril (ALTACE) 5 MG capsule [...] e (PF) 0.9 % injection 10 mL sotalol hydrochloride 120 mg oral tablet (6 sources) Antiarrhythmic Start: 12-19-2023 take 1 tablet by mouth twice daily sotalol 120 mg Tab 120 mg = 1 tab(s), Oral, BID, Refills(s) 0 Start Date: 12/19/23 Status: Ordered Sotalol HCl Acti ve take 1 tablet by mouth twice giovanni ly sotalol (BETAPACE) 120 MG tablet Take 120 mg by mouth 2 times daily 0 Active traZODone hydrochloride 50 mg oral tablet (1 source) Serotonin Reuptake Inhibitor Start: 12-19-2023 take 1 tablet by mouth once daily at bedtime traZODONE 50 mg Tab 50 mg = 1 tab(s), Oral, Once a day (at bedtime), Refills(s) 0 Start Date: 12/19/23 Status: Ordered Trelegy Ellipta 200 mcg-62.5 mcg-25 mcg/inh inhalation powder (1 source) Start: 12-19-2023 take 1 puff(s) by inhalation once daily Trelegy Ellipta 200 mcg-62.5 mcg-25 mcg/inh inhalation powder 1 puff(s), Inhalation, Daily, Refill(s) 0 Start Date: 12/19/23 Status: Ordered Vitamin D (1 source) Vitamin D Active Vitamin D3 2000 intl units oral Tab (1 source) Start: 12-19-2023 take 1 tablet by mouth once daily Vitamin D3 2000 intl units oral Tab = 1 tab(s), Oral, Daily, Refills(s) 0 Start Date: 12/19/23 Status: Ordered Completed/Discontinued Medications Medication Drug Class(es) Dates Sig [...] [Cerebral infarction, unspecified] 08-06-2015 Chronic Cardiac dysrhythmias (8 sources) Unspecified atrial fibrillation; Translations: [Supraventricular tachycardia] Onset: 07-10-2017 08-02-2017 Chronic Chronic obstructive pulmonary disease and bronchiectasis (2 sources) Chronic obstructive lung disease; Translations: [Chronic obstructive pulmonary disease, unspecified] Onset: 03-29-2020 03-29-2020 Chronic Coronary atherosclerosis and other heart disease (6 sources) Coronary arteriosclerosis; Translations: [Atherosclerotic heart disease of [place] coronary artery without angina pectoris] Onset: 10-30-2022 01-20-2012 Chronic Delirium, dementia, and amnestic and other cognitive disorders (1 source) Alzheimer's disease; Translations: [Alzheimer's disease, unspecified] Onset: 05-10-2021 05-10-2021 Chronic Diabetes mellitus with complications (1 source) Polyneuropathy due to diabetes mellitus 12-19-2023 Chronic Diabetes mellitus without complication (5 sources) Type 2 diabetes mellitus; Translations: [Type 2 diabetes mellitus without complications] Onset: 04-18-2015 08-02-2017 Chronic Disorders of lipid metabolism (6 sources) Hyperlipidemia; Translations: [Hyperlipidemia, unspecified] Onset: 10-29-2022 08-02-2017 Chronic Diverticulosis and diverticulitis (1 source) Diverticular disease 01-20-2024 Chronic Essential hypertension (5 sources) Hypertensive disorder; Translations: [Essential (primary) hypertension] 08-02-2017 Chronic Glaucoma (4 sources) Glaucoma; Translations: [Unspecified glaucoma] 01-20-2012 Chronic Nutritional deficiencies (1 source) Vitamin D deficiency 12-19-2023 Chronic Other circulatory disease (1 source) History of cerebrovascular accident 12-19-2023 Episodic Other connective tissue disease (2 sources) Weakness of face muscles; Translations: [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)] Episodic Other lower respiratory disease (4 sources) Shortness of breath; Translations: [SHORTNESS OF BREATH] Onset: 11-19-2022 Episodic Other lower respiratory disease (2 sources) Other forms of dyspnea; Translations: [Other forms of dyspnea] Onset: 04-07-2023 Episodic Other lower respiratory disease (1 source) Chronic cough 12-19-2023 Episodic Other nutritional; endocrine; and metabolic disorders (2 sources) Body mass index 40+ - severely obese; Translations: [Morbid (severe) obesity due to excess calories] Onset: 03-29-2020 03-29-2020 Chronic Other nutritional; endocrine; and metabolic disorders (1 source) Morbid obesity 12-19-2023 Chronic Other upper respiratory disease (1 source) Allergic rhinitis 12-19-2023 Chronic Parkinson`s disease (4 sources) Parkinsonism; Translations: [Parkinson's disease] 01-20-2012 Chronic Peripheral and visceral atherosclerosis (5 sources) Peripheral vascular disease; Translations: [Peripheral vascular disease, unspecified] Resolved: 04-13-2018 04-13-2018 Chronic Residual codes; unclassified (1 source) Insomnia 12-19-2023 Episodic Unclassified (1 source) Patient encounter status 12-19-2023 Viral infection (1 source) Disease caused by [...] 04-13-2018 04-13-2018 Episodic Other aftercare (1 source) terminal makeup operator (current) use of anticoagulants; Translations: [SKILLED NURSING CURRNT USE ANTICOAGULANTS] Onset: 05-06-2022 Episodic Other aftercare (1 source) terminal makeup operator (current) use of aspirin; Translations: [SKILLED NURSING CURRENT USE OF ASPIRIN] Onset: 05-06-2022 Episodic Other aftercare (1 source) Other jail (current) drug therapy; Translations: [OTH SKILLED NURSING CURRENT DRUG THERAPY] Onset: 05-06-2022 Episodic Other circulatory disease (3 sources) H/O: atrial fibrillation; Translations: [Personal history of other diseases of the circulatory system] Onset: 08-02-2017 07-26-2019 Episodic Results Test Name Value Interpretation Reference Range Facility Facesheeton 01-21-2024 Facesheet [id number]. [id number] Robi [facility] Ambulatory Visit Summaryon 0 01-20-2024 Ambulatory Visit Summary SHARON PELAEZ :1950 Visit Date:01/20/2024 Ambulatory Visit Instructions Your Care Team Attending Physician - SULTANA GATES, Ross Chamberlain Primary Care Physician - Deborah LYON, Kate Hunter Referring Physician - DALI GATES, KHALIL This Is Your Medications List Contact prescribing physician if questions or concerns albuterol (Albuterol (Eqv-ProAir HFA)) albuterol-ipratropium (DuoNeb 2.5 mg-0.5 mg/3 mL Soln-Inh) apixaban (Eliquis 5 mg oral tablet) aspirin (aspirin 81 mg Oral EC Tab) atorvastatin (atorvastatin 80 mg Tab) cholecalciferol (Vitamin D3 2000 intl units oral Tab) diltiazem (diltiazem 30 mg Tab) donepezil (Aricept 10 mg Tab) fluticasone/umeclidin ium/vilanterol (Trelegy Ellipta 200 mcg-62.5 mcg-25 mcg/inh inhalation powder) gabapentin (gabapentin 300 mg Cap) glimepiride (Amaryl 2 mg Tab) nitroglycerin (nitroglycerin 0.4 mg sublingual Tab) omeprazole (omeprazole 20 mg Cap-DR) primidone (Mysoline 50 mg Tab) ramipril (ramipril 10 mg Cap) sotalol (sotalol 120 mg Tab) trazodone (traZODONE 50 mg Tab) Procedures Performed Colonoscopy (1950), Cardiac ablation using fluoroscopy guidance, Colonoscopy, Colonoscopy, Partial resection of colon, Placement of stent in coronary artery. Discharge Vitals Heart Rate (Peripheral) 80 Respiratory Rate 16 Blood Pressure 130/86 Height 172.7 cm Height 68 in Weight 126 kg Weight 277.2 lb BMI 42.25 Medications What How Much When Instructions Unchanged albuterol (Albuterol (Eqv-ProAir HFA)) 2 Puffs Inhalation Every 4 hours as needed for Shortness of breath or wheezing Contact prescribing physician if questions or concerns Unchanged albuterol-ipratropium (DuoNeb 2.5 mg-0.5 mg/ 3 mL Soln-Inh) 3 Milliliter Nebulized inhalation (aerosol) 4 times a day Contact prescribing physician if questions or concerns Unchanged apixaban (Eliquis 5 mg oral tablet) 1 Tablets By Mouth 2 times a day Contact prescribing physician if questions or concerns Unchanged aspirin (aspirin 81 mg Oral EC Tab) 1 Tablets By Mouth Every day Contact prescribing physician if questions or concerns Unchanged atorvastatin (atorvastatin 80 mg Tab) 1 Tablets By Mouth Every day Contact prescribing physician if questions or concerns Unchanged cholecalciferol (Vitamin D3 2000 intl units oral Tab) 1 Tablets By Mouth Every day Contact prescribing physician if questions or concerns Unchanged diltiazem (diltiazem 30 mg Tab) 2 Tablets By Mouth 2 times a day Contact prescribing physician if questions or concerns Unchanged donepezil (Aricept 10 mg Tab) 1 Tablets By Mouth Once a day (at bedtime) Contact prescribing physician if questions or concerns Unchanged fluticasone/ umeclidinium/ vilanterol (Trelegy Ellipta 200 mcg-62.5 mcg-25 mcg/ inh inhalation powder) 1 Puffs Inhalation Every day Contact prescribing physician if questions or concerns Unchanged gabapentin (gabapentin 300 mg Cap) 1 Capsules By Mouth 3 times a day Contact prescribing physician if questions or concerns Unchanged glimepiride (Amaryl 2 mg Tab) 1 Tablets By Mouth Every day Contact prescribing physician if questions or concerns Unchanged nitroglycerin (nitroglycerin 0.4 mg sublingual Tab) 1 Tablets Sublingual Every 5 minutes as needed for for chest pain Contact prescribing physician if questions or concerns Unchanged omeprazole (omeprazole 20 mg Cap-DR) 1 Capsules By Mouth Every day Contact prescribing physician if questions or concerns Unchanged primidone (Mysoline 50 mg Tab) 1 Tablets By Mouth Once a day (at bedtime) Contact prescribing physician if questions or concerns Unchanged ramipril (ramipril 10 mg Cap) 1 Capsules By Mouth Every day Contact prescribing physician if questions or concerns Unchanged sotalol (sotalol 120 mg Tab) 1 Tablets By Mouth 2 times a day Contact prescribing physician if questions or concerns Unchanged trazodone (traZODONE 50 mg Tab) 1 Tablets By Mouth Once a day (at bedtime) Contact prescribing physician if questions or concerns Allergies No Known Allergies No Known Medication Allergies Problems Ongoing - Any problem that you are currently receiving treatment for. Allergic rhinitis ASCVD (arteriosclerotic cardiovascular disease) Atrial fibrillation BMI 40.0-44.9, adult Chronic cough Chronic obstructive pulmonary disease Diabetes Diabetic polyneuropathy Diverticulosis History of CVA (cerebrovascular accident) HTN (hypertension) Hyperlipidemia Insomnia Morbid obesity Screen for colon cancer Vitamin D deficiency Patient Survey You may receive a survey via text or e-mail asking about your office visit. Please share your experience with us by completing your survey. We appreciate your feedback and thank you for choosing us for your care. Normal [facility] Reminderson 01-20-2024 Reminders - From: Day Machado LPN To: N - Clinical; Sent: 01/20/2024 16:21:49 EDT Show up: 05/06/2029 07:00:00 EDT Subject: colonoscopy recall Due Date/Time: 05/31/2029 07:00:00 EDT Reminder/Recall Patient due for screening colonoscopy 05/2029. Normal [facility] Physician Referralon 024 Physician Referral [id number] Normal [facility] Office Visiton 04-07-2023 Follow-up visit [id number] Sharon Pelaez W 1950 M Date Provider Department Center 04/07/2023 271-CHALO TOVAR [facility] Family History Problem Relation Age of Onset Coronary artery disease Maternal Grandmother Coronary artery disease Maternal Grandfather Cerebral aneurysm Paternal Grandmother Family Status - Relation Status Age at Maternal Grandmother Maternal Grandfather Paternal Grandmother Level of Service:64316 SD OFFICE/OUTPATIENT ESTABLISHED MOD MDM 30-39 MIN Normal [facility] NM STRESS/REST MULTIon 11-19 NM STRESS/REST MULTI Patient: SHARON PELAEZ Exam Date: 11/19/2022 : 1950 Gender:M Ordering : DR CHALO TOVAR M.D. Admission #: [id number] Family : Order #: [id number] CLICK HERE TO VIEW EXAM RADIOLOGY REPORT [...] Cotter M.D. on 11/27/2022 at 15:02 Normal [facility] Telemedicineon 10-30-2022 Telemedicine [id number] Sharon Pelaez 1950 M Date Provider Department Center 10/30/2022 [facility] Family History Problem Relation Age of Onset Coronary artery disease Maternal Grandmother Coronary artery disease Maternal Grandfather Cerebral aneurysm Paternal Grandmother Family Status - Relation Status Age at Maternal Grandmother Maternal Grandfather Paternal Grandmother Level of Service:59432 SD OFFICE/OUTPATIENT [facility] 15-29 MINUTES Reason for Visit and Comments: Coronary Artery Disease [187] Atrial Fibrillation [80] Normal [facility] A1C with Estimated Average G narciso 10-29-2022 Glucose [Mass/Vol] 169 mg/dL Normal [facility] Comment on above: Result Comment: PERF ORMED BY: [facility] [address] [place] [address] PATHOLOGIST PERSONAL CLOTHING LAUNDRY AIDE WINTER RODRIGUEZ M.D. Performed By: #### U RMACRERAT, CBC, A1C WT eA, LIPID, CMP #### [facility] [address] HbA1c (Bld) [Mass fraction] 7.5 % High 4.3-5.6 [facility] Comment on above: Result Comment: Incr eased risk for diabetes: 5.7 - 6.4 diabetes: >6.4 glycemic control for adults with diabetes: <7.0 Performed By: #### U RMACRERAT, CBC, A1C WTH eA, LIPID, CMP #### [facility] [address] [place] [id number] [place] Albumin [Mass/volume] in Ser um or PlasmaOrdered By: Shaikh Dali on 10-29-2022 Albumin [Mass/Vol] 3.8 g/dL 3.2-5.5 [facility] Basophils Auto (Bld) [#/Vol] Ordered By: Shaikh Dali on 10-29-2022 Basophils (Bld) [#/Vol] 0.1 10*3/uL 0.0-0.2 [facility] Basophils/100 WBC Auto (Bld) Ordered By: Shaikh Dali on 10-29-2022 Basophils/100 WBC (Bld) 0.7 % . [facility] Cholesterol [Mass/volume] in Serum or PlasmaOrdered By: Shaikh Dali on 10-29-2022 Cholesterol [Mass/Vol] 147 mg/dL 140-200 [facility] Comment on above: Chol less than 200 m g/dl low riskChol 201-239 mg/dl borderline riskChol 240 mg/dl and greater high risk Cholesterol in LDL Calc [Mas s/Vol]Ordered By: Shaikh Dali on 10-29-2022 Cholesterol in LDL [Mass/Vol] 62 mg/dL 0-100 [facility] Comment on above: LDL ATP III CLASSIFI CATIONLDL less than 100 mg/dL OptimalLDL 100-129 mg/dL Near or above optimalLDL 130-159 mg/dL Borderline highLDL 160-189 mg/dL HighLDL greater than 189 mg/dL Very high Cholesterol in VLDL Calc [Ma ss/Vol]Ordered By: Shaikh Dali on 10-29-2022 Cholesterol in VLDL [Mass/Vol] 57 mg/dL [facility] Complete Blood Count Auto Di ffon 10-29-2022 Basophils (Bld) [#/Vol] 0.1 10*3/uL Normal 0.0-0.2 [facility] Comment on above: Result Comment: PERF ORMED BY: [place] [address] PATHOLOGIST PERSONAL CLOTHING LAUNDRY AIDE WINTER RODRIGUEZ M.D. Performed By: #### U RMACRERAT, CBC, A1C WTH eA, LIPID, CMP #### [facility] [address] [place] [address] Basophils/100 WBC (Bld) 0.7 % Normal . [facility] Comment on above: Performed By: #### U RMACRERAT, CBC, A1C WTH eA, LIPID, CMP #### [facility] [address] [place] [address] Eosinophils (Bld) [#/Vol] 0.5 10*3/uL High 0.0-0.45 [facility] Comment on above: Performed By: #### U RMACRERAT, CBC, A1C WTH eA, LIPID, CMP #### [address] Eosinophils/100 WBC (Bld) 5.3 % Normal . [facility] Comment on above: Performed By: #### U RMACRERAT, CBC, A1C WTH eA, LIPID, CMP #### [facility] [address] [place] [address] Erythrocyte distribution width (RBC) [Ratio] 13.7 % Normal 12.0-14.8 [facility] Comment on above: Performed By: #### U RMACRERAT, CBC, A1C WTH eA, LIPID, CMP #### [address] Hematocrit (Bld) [Volume fraction] 44.8 % Normal 38.8-50.0 [facility] Comment on above: Performed By: #### U RMACRERAT, CBC, A1C WTH eA, LIPID, CMP #### [facility] [address] Hemoglobin (Bld) [Mass/Vol] 14.5 g/dL Normal 13.0-17.0 [facility] Comment on above: Performed By: #### U RMACRERAT, CBC, A1C WTH eA, LIPID, CMP #### [address] Lymphocytes (Bld) [#/Vol] 2.1 10*3/uL Normal 1.00-4.8 [facility] Comment on above: Performed By: #### U RMACRERAT, CBC, A1C WTH eA, LIPID, CMP #### [address] [address] Lymphocytes/100 WBC (Bld) 21.4 % Normal . [facility] Comment on above: Performed By: #### U RMACRERAT, CBC, A1C WTH eA, LIPID, CMP #### [address] MCH (RBC) [Entitic mass] 27.5 pg Normal 27.5-35.2 [facility] Comment on above: Performed By: #### U RMACRERAT, CBC, A1C WTH eA, LIPID, CMP #### [address] MCV (RBC) [Entitic vol] 84.7 fL Normal 83.5-101 [facility] Comment on above: Performed By: #### U RMACRERAT, CBC, A1C WTH eA, LIPID, CMP #### [address] Mean Corpuscular HGB Conc 32.5 g/dL Normal 32.5-35.6 [facility] Comment on above: Performed By: #### U RMACRERAT, CBC, A1C WTH eA, LIPID, CMP #### [address] Monocytes (Bld) [#/Vol] 0.7 10*3/uL Normal 0.0-0.8 [facility] Comment on above: Performed By: #### U RMACRERAT, CBC, A1C WTH eA, LIPID, CMP #### [facility] [address] Monocytes/100 WBC (Bld) 7.2 % Normal . [facility] Comment on above: Performed By: #### U RMACRERAT, CBC, A1C WTH eA, LIPID, CMP #### [facility] [address] [place] [address] [place] Neutrophils (Bld) [#/Vol] 6.4 10*3/uL Normal 1.8-7.7 [facility] Comment on above: Performed By: #### U RMACRERAT, CBC, A1C WTH eA, LIPID, CMP #### [facility] [address] Neutrophils/100 WBC (Bld) 65.4 % Normal . [facility] Comment on above: Performed By: #### U RMACRERAT, CBC, A1C WTH eA, LIPID, CMP #### [facility] [address] NRBC% 0.2 /100{WBC} Normal 0-0.5 [facility] Comment on above: Performed By: #### U RMACRERAT, CBC, A1C WTH eA, LIPID, CMP #### [facility] [address] [place] [address] [place] Platelet mean volume (Bld) [Entitic vol] 10.2 fL High 6.6-10.1 [facility] Comment on above: Performed By: #### U RMACRERAT, CBC, A1C WTH eA, LIPID, CMP #### [facility] [address] [place] [address] [place] Platelets (Bld) [#/Vol] 235 10*3/uL Normal 150-450 [facility] Comment on above: Performed By: #### U RMACRERAT, CBC, A1C WTH eA, LIPID, CMP #### [address] RBC (Bld) [#/Vol] 5.28 10*6/uL Normal 3.90-5.60 [facility] Comment on above: Performed By: #### U RMACRERAT, CBC, A1C WTH eA, LIPID, CMP #### [facility] [address] WBC (Bld) [#/Vol] 9.8 10*3/uL Normal 4.1-10.5 [facility] Comment on above: Performed By: #### U RMACRERAT, CBC, A1C WTH eA, LIPID, CMP #### [facility] [address] Comprehensive Metabolic Pane concha 10-29-2022 Albumin [Mass/Vol] 3.8 g/dL Normal 3.2-5.5 [facility] Comment on above: Performed By: #### U RMACRERAT, CBC, A1C WTH eA, LIPID, CMP #### [facility] [address] [place] [address] Albumin/Globulin [Mass ratio] 1.3 {ratio} Normal [facility] Comment on above: Performed By: #### U RMACRERAT, CBC, A1C WTH eA, LIPID, CMP #### [address] ALP [Catalytic activity/Vol] 73 U/L Normal 32-92 [facility] Comment on above: Performed By: #### U RMACRERAT, CBC, A1C WTH eA, LIPID, CMP #### [facility] [address] [place] [address] ALT [Catalytic activity/Vol] 42 U/L Normal 10-60 [facility] Comment on above: Performed By: #### U RMACRERAT, CBC, A1C WTH eA, LIPID, CMP #### [facility] [address] [place] [address] Anion gap [Moles/Vol] 14.2 mmol/L Normal 6.0-15.0 [facility] Comment on above: Performed By: #### U RMACRERAT, CBC, A1C WTH eA, LIPID, CMP #### [facility] [address] [place] [address] [place] AST [Catalytic activity/Vol] 53 U/L High 10-42 [facility] Comment on above: Performed By: #### U RMACRERAT, CBC, A1C WTH eA, LIPID, CMP #### [facility] [address] [place] [address] [place] Bilirubin [Mass/Vol] 0.6 mg/dL Normal 0.3-1.2 [facility] Comment on above: Performed By: #### U RMACRERAT, CBC, A1C WTH eA, LIPID, CMP #### [facility] [address] Calcium [Mass/Vol] 9.2 mg/dL Normal 8.2-10.2 [facility] Comment on above: Performed By: #### U RMACRERAT, CBC, A1C WTH eA, LIPID, CMP #### [facility] [address] Chloride [Moles/Vol] 99 mmol/L Normal 95-114 [facility] Comment on above: Performed By: #### U RMACRERAT, CBC, A1C WTH eA, LIPID, CMP #### [facility] [address] [place] [address] CO2 [Moles/Vol] 27.4 mmol/L Normal 22.0-30.0 [facility] Comment on above: Performed By: #### U RMACRERAT, CBC, A1C WTH eA, LIPID, CMP #### [facility] [address] [place] [address] [place] Creatinine [Mass/Vol] 1.00 mg/dL Normal 0.64-1.27 [facility] Comment on above: Performed By: #### U RMACRERAT, CBC, A1C WTH eA, LIPID, CMP #### [facility] [address] [place] [address] [place] Estimated GFR ( Felipa > 60 Normal [facility] Comment on above: Result Comment: GFR estimated reference range: According to KDOQI guidelines, <60 ml/min/1.73m2 is sufficient to diagnose a patient with chronic kidney disease. Performed By: #### U RMACRERAT, CBC, A1C WTH eA, LIPID, CMP #### [facility] [address] Estimated GFR (Non- Am > 60 Normal [facility] Comment on above: Performed By: #### U RMACRERAT, CBC, A1C WTH eA, LIPID, CMP #### [facility] [address] Globulin (S) [Mass/Vol] 2.9 g/dL Normal [facility] Comment on above: Performed By: #### U RMACRERAT, CBC, A1C WTH eA, LIPID, CMP #### [facility] [address] Glucose [Mass/Vol] 145 mg/dL High 70-100 [facility] Comment on above: Result Comment: [facility] Glucose Reference Range is dependent on time and content of last meal. Glucose of more than 200 mg/dL in a nonstressed, ambulatory subject supports the diagnosis of Diabetes Mellitus. ADA recommended reference range Performed By: #### U RMACRERAT, CBC, A1C WTH eA, LIPID, CMP #### [address] Potassium [Moles/Vol] 4.6 mmol/L Normal 3.5-5.1 [facility] Comment on above: Performed By: #### U RMACRERAT, CBC, A1C WTH eA, LIPID, CMP #### [facility] [address] Protein [Mass/Vol] 6.7 g/dL Normal 6.1-7.9 [facility] Comment on above: Performed By: #### U RMACRERAT, CBC, A1C WTH eA, LIPID, CMP #### [address] Sodium [Moles/Vol] 136 mmol/L Normal 136-146 [facility] Comment on above: Performed By: #### U RMACRERAT, CBC, A1C WTH eA, LIPID, CMP #### [facility] [address] [place] [address] [place] Urea nitrogen [Mass/Vol] 15 mg/dL Normal 9- [facility] Comment on above: Performed By: #### U RMACRERAT, CBC, A1C WT eA, LIPID, CMP #### [facility] [address] [place] [address] [place] Creatinine [Mass/volume] in UrineOrdered By: Shaikh Dali on 10-29-2022 Creatinine (U) [Mass/Vol] 166.9 mg/dL [facility] Comment on above: No reference range e stablished Creatinine and Glomerular fi ltration rate.predicted panel (S/P/Bld)Ordered By: Shaikh Dali on 10-29-2022 Creatinine [Mass/Vol] 1.00 mg/dL 0.64-1.27 [facility] Eosinophils Auto (Bld) [#/Vo l]Ordered By: Shaikh Dali on 10-29-2022 Eosinophils (Bld) [#/Vol] 0.5 10*3/uL 0.0-0.45 [facility] Eosinophils/100 WBC Auto (Bl d)Ordered By: Shaikh Dali on 10-29-2022 Eosinophils/100 WBC (Bld) 5.3 % . [facility] Erythrocyte distribution wid th Auto (RBC) [Ratio]Ordered By: Shaikh Dali on 10-29-2022 Erythrocyte distribution width (RBC) [Ratio] 13.7 % 12.0-14.8 [facility] Estimated glomerular filtrat ion rate (GFR) non- AmericanOrdered By: Shaikh Dali on 10-29-2022 GFR/1.73 sq M.predicted among non-blacks MDRD (S/P/Bld) [Vol rate/Area] > 60 mL/Min [facility] Globulin Calc (S) [Mass/Vol] Ordered By: Shaikh Dali on 10-29-2022 Globulin (S) [Mass/Vol] 2.9 g/dL [facility] Glucose mean value [Mass/vol ume] in Blood Estimated from glycated hemoglobinOrdered By: Shaikh Dali on 10-29-2022 Average glucose Estimated from glycated hemoglobin (Bld) [Mass/Vol] 169 mg/dL [facility] Hematocrit Auto (Bld) [Volum e fraction]Ordered By: Shaikh Dali on 10-29-2022 Hematocrit (Bld) [Volume fraction] 44.8 % 38.8-50.0 [facility] Hemoglobin A1c percentageOrd ered By: Shaikh Dali on 10-29-2022 HbA1c (Bld) [Mass fraction] 7.5 % 4.3-5.6 [facility] Comment on above: Increased risk for d iabetes: 5.7 - 6.4diabetes: >6.4glycemic control for adults with diabetes: <7.0 Hemoglobin [Mass/volume] in BloodOrdered By: Shaikh Dali on 10-29-2022 Hemoglobin (Bld) [Mass/Vol] 14.5 g/dL 13.0-17.0 [facility] Leukocytes [#/volume] correc wiley for nucleated erythrocytes in Blood by Automated counOrdered By: Shaikh Dali on 10-29-2022 WBC corrected for nucl RBC Auto (Bld) [#/Vol] 9.8 10*3/uL 4.1-10.5 [facility] Lipid Panelon 10-29-2022 Cholesterol [Mass/Vol] 147 mg/dL Normal 140-200 [facility] Comment on above: Result Comment: Chol less than 200 mg/dl low risk Chol 201-239 mg/dl borderline risk Chol 240 mg/dl and greater high risk Performed By: #### U RMACRERAT, CBC, A1C WTH eA, LIPID, CMP #### [facility] [address] Cholesterol in HDL [Mass/Vol] 28 mg/dL Low 29-71 [facility] Comment on above: Result Comment: HDL CHOL ATP-III CLASSIFICATION Cardiovascular Risk HDL > or equal to 60 mg/dL LOW HDL < 40 mg/dL HIGH Performed By: #### U RMACRERAT, CBC, A1C WTH eA, LIPID, CMP #### [facility] [address] Cholesterol.total/Apple sterol in HDL [Mass ratio] 5.3 {ratio} Normal <5.0 [facility] Comment on above: Result Comment: PERF ORMED BY: [place] [address] PATHOLOGIST PERSONAL [employer]OTHING LAUNDRY AIDE WINTER RODRIGUEZ M.D. Performed By: #### U RMACRERAT, CBC, A1C WTH eA, LIPID, CMP #### [facility] [address] LDL Cholesterol,Calculated 62 mg/dL Normal 0-100 [facility] Comment on above: Result Comment: LDL ATP III CLASSIFICATION LDL less than 100 mg/dL Optimal LDL 100-129 mg/dL Near or above optimal LDL 130-159 mg/dL Borderline high LDL 160-189 mg/dL High LDL greater than 189 mg/dL Very high Performed By: #### U RMACRERAT, CBC, A1C WTH eA, LIPID, CMP #### [facility] [address] Triglyceride w/Reflex 285 mg/dL High 35-149 [facility] Comment on above: Result Comment: TRIG ATP III CLASSIFICATION TRIG less than 150 mg/dL Normal TRIG 150-199 mg/dL Borderline high TRIG 200-500 mg/dL High TRIG greater than 500 mg/dL Very high Standard traceable to the Center for Disease Conrtrol and Prevention (CDC) test method. Performed By: #### U RMACRERAT, CBC, A1C WTH eA, LIPID, CMP #### [facility] [address] VLDL CHOLESTEROL 57 mg/dL Normal [facility] Comment on above: Performed By: #### U RMACRERAT, CBC, A1C WTH eA, LIPID, CMP #### [facility] [address] Lymphocytes Auto (Bld) [#/Vo l]Ordered By: Shaikh Dali on 10-29-2022 Lymphocytes (Bld) [#/Vol] 2.1 10*3/uL 1.00-4.8 [facility] Lymphocytes/100 WBC Auto (Bl d)Ordered By: Shaikh Dali on 10-29-2022 Lymphocytes/100 WBC (Bld) 21.4 % . [facility] MCH Auto (RBC) [Entitic mass ]Ordered By: Shaikh Dali on 10-29-2022 MCH (RBC) [Entitic mass] 27.5 pg 27.5-35.2 [facility] MCHC Auto (RBC) [Mass/Vol]Or dered By: Shaikh Dali on 10-29-2022 MCHC (RBC) [Mass/Vol] 32.5 g/dL 32.5-35.6 [facility] [place] MCV Auto (RBC) [Entitic vol] Ordered By: Shaikh Dali on 10-29-2022 MCV (RBC) [Entitic vol] 84.7 fL 83.5-101 [facility] MicroAlb Creat Ratio,Uon Albumin DL <= 20 mg/L (U) [Mass/Vol] 18.7 mg/dL High 0.0-1.8 [facility] Comment on above: Performed By: #### U RMACRERAT, CBC, A1C WTH eA, LIPID, CMP #### [facility] [address] Creatinine, Urine (Random) 166.9 mg/dL Normal [facility] Comment on above: Result Comment: No r eference range established Performed By: #### U RMACRERAT, CBC, A1C WTH eA, LIPID, CMP #### [facility] [address] Microalbumin/Creatinine Ratio 112.0 mg/g High 0.0-30.0 [facility] Comment on above: Result Comment: 30-3 00 mg/g indicates an increased risk for diabetic nephropathy. Greater than 300 mg/g is consistent with clinical nephropathy. (Am. J. Kidney Disease 1995, 25:107) PERFORMED BY: [place] [address] PATHOLOGIST PERSONAL [employer]OTHING LAUNDRY AIDE WINTER RODRIGUEZ M.D. Performed By: #### U RMACRERAT, CBC, A1C WTH eA, LIPID, CMP #### [facility] [address] Monocytes Auto (Bld) [#/Vol] Ordered By: Shaikh Dali on 10-29-2022 Monocytes (Bld) [#/Vol] 0.7 10*3/uL 0.0-0.8 [facility] Monocytes/100 WBC Auto (Bld) Ordered By: Shaikh Dali on 10-29-2022 Monocytes/100 WBC (Bld) 7.2 % . [facility] Neutrophils Auto (Bld) [#/Vo l]Ordered By: Shaikh Dali on 10-29-2022 Neutrophils (Bld) [#/Vol] 6.4 10*3/uL 1.8-7.7 [facility] Neutrophils/100 WBC Auto (Bl d)Ordered By: Shaikh Dali on 10-29-2022 Neutrophils/100 WBC (Bld) 65.4 % . [facility] No Panel InformationOrdered By: Shaikh Dali on 10-29-2022 Estimated GFR () > 60 mL/Min [facility] Comment on above: GFR estimated refere nce range: According to KDOQI guidelines, <60 ml/min/1.73m2 is sufficient to diagnose a patient with chronic kidney disease. Pharmacy Creatinine Clearance (Chem N/A [facility] Nucleated erythrocytes [Pres ence] in Blood by Automated countOrdered By: Shaikh Dali on 10-29-2022 Nucleated RBC Auto Ql (Bld) 0.2 /100{WBC} 0-0.5 [facility] Platelet mean volume Auto (B ld) [Entitic vol]Ordered By: Shaikh Dali on 10-29-2022 Platelet mean volume (Bld) [Entitic vol] 10.2 fL 6.6-10.1 [facility] Platelets Auto (Bld) [#/Vol] Ordered By: Shaikh Dali on 10-29-2022 Platelets (Bld) [#/Vol] 235 10*3/uL 150-450 [facility] Protein [Mass/volume] in Ser um or PlasmaOrdered By: Shaikh Dali on 10-29-2022 Protein [Mass/Vol] 6.7 g/dL 6.1-7.9 [facility] RBC Auto (Bld) [#/Vol]Ordere d By: Shaikh Dali on 10-29-2022 RBC (Bld) [#/Vol] 5.28 10*6/uL 3.90-5.60 [facility] Serum or plasma alanine azevedo otransferase measurement without P-5'-P (enzymatic activiOrdered By: Shaikh Dali on 10-29-2022 ALT No additional P-5'-P [Catalytic activity/Vol] 42 U/L 60 [facility] Serum or plasma albumin/glob ulin mass ratioOrdered By: Shaikh Dali on 10-29-2022 Albumin/Globulin [Mass ratio] 1.3 {ratio} [facility] Serum or plasma alkaline julia sphatase measurement (enzymatic activity/volume)Ordered By: Shaikh Dali on 10-29-2022 ALP [Catalytic activity/Vol] 73 U/L 32-92 [facility] Serum or plasma anion gap de terminationOrdered By: Shaikh Dali on 10-29-2022 Anion gap [Moles/Vol] 14.2 mmol/L 6.0-15.0 [facility] Serum or plasma aspartate am inotransferase measurement (enzymatic activity/volume)Ordered By: Shaikh Dali on 10-29-2022 AST [Catalytic activity/Vol] 53 U/L 42 [facility] Serum or plasma calcium david urement (mass/volume)Ordered By: Shaikh Dali on 10-29-2022 Calcium [Mass/Vol] 9.2 mg/dL 8.2-10.2 [facility] Serum or plasma chloride traci surement (moles/volume)Ordered By: Shaikh Dali on 10-29-2022 Chloride [Moles/Vol] 99 mmol/L 95-114 [facility] Serum or plasma glucose david urement (mass/volume)Ordered By: Shaikh Dali on 10-29-2022 Glucose [Mass/Vol] 145 mg/dL 70-100 [facility] Comment on above: ADA recommended refe rence rangeRandom Glucose Reference Range is dependent on time and content of last meal. Glucose of more than 200 mg/dL in a nonstressed, ambulatory subject supports the diagnosis of Diabetes Mellitus. Serum or plasma high density lipoprotein (HDL) cholesterol measurementOrdered By: Shaikh Dali on 10-29-2022 Cholesterol in HDL [Mass/Vol] 28 mg/dL - [facility] Comment on above: HDL CHOL ATP-III CLA SSIFICATION Cardiovascular RiskHDL > or equal to 60 mg/dL LOWHDL < 40 mg/dL HIGH Serum or plasma potassium me asurement (moles/volume)Ordered By: Shaikh Dali on 10-29-2022 Potassium [Moles/Vol] 4.6 mmol/L 3.5-5.1 [facility] Serum or plasma sodium measu rement (moles/volume)Ordered By: Shaikh Dali on 10-29-2022 Sodium [Moles/Vol] 136 mmol/L 136-146 [facility] Serum or plasma total biliru bin measurement (mass/volume)Ordered By: Shaikh Dali on 10-29-2022 Bilirubin [Mass/Vol] 0.6 mg/dL 0.3-1.2 [facility] Serum or plasma total carbon dioxide measurement (moles/volume)Ordered By: Shaikh Dali on 10-29-2022 CO2 [Moles/Vol] 27.4 mmol/L 22.0-30.0 [facility] Serum or plasma total choles terol/high density lipoprotein (HDL) cholesterol mass ratOrdered By: Shaikh Dali on 10-29-2022 Cholesterol.total/Apple sterol in HDL [Mass ratio] 5.3 {ratio} <5.0 [facility] Serum or plasma urea nitroge n measurement (mass/volume)Ordered By: Shaikh Dali on 10-29-2022 Urea nitrogen [Mass/Vol] 15 mg/dL 06-28 [facility] Triglyceride [Mass/volume] i n Serum or PlasmaOrdered By: Shaikh Dali on 10-29-2022 Triglyceride [Mass/Vol] 285 mg/dL 35-149 [facility] Comment on above: TRIG ATP III CLASSIF ICATIONTRIG less than 150 mg/dL NormalTRIG 150-199 mg/dL Borderline highTRIG 200-500 mg/dL High TRIG greater than 500 mg/dL Very highStandard traceable to the Center for Disease Conrtrol and Prevention (CDC) test method. Urine microalbumin measureme nt with detection limit of 20 mg/L or less (mass/volume)Ordered By: Shaikh Dali on 10-29-2022 Albumin DL <= 20 mg/L (U) [Mass/Vol] 18.7 mg/dL 0.0-1.8 [facility] Urine microalbumin/creatinin e mass ratioOrdered By: Shaikh Dali on 10-29-2022 Albumin/Creatinine DL <= 20 mg/L (U) [Mass ratio] 112.0 mg/g 0.0-30.0 [facility] Comment on above: 30-300 mg/g indicate s an increased risk for diabetic nephropathy. Greater than 300 mg/g is consistent with clinical nephropathy. (Am. J. Kidney Disease 1995, 25:107) WBC Auto (Bld) [#/Vol]Ordere d By: Shaikh Dali on 10-29-2022 WBC (Bld) [#/Vol] 9.8 10*3/uL 4.1-10.5 [facility] CARDIAC SARAH ADMITon 022 CK [Catalytic activity/Vol] 100 U/L Normal 39-308 [facility] Comment on above: Performed By: #### C PENNY, CMP #### [facility] [address] [place], [place] [address] Dr. Tracy Gutierrez CK.MB [Mass/Vol] 1.18 ng/mL Normal <=3.60 [facility] Comment on above: Performed By: #### C MADM, CMP #### [facility] [address] [place], [place] [address] Dr. Tracy Gutierrez HSTROP 11.3 pg/mL Normal 4.0-76.1 [facility] Comment on above: Result Comment: CUT- OFF POINTS HAVE BEEN ESTABLISHED BASED ON THE FOURTH UNIVERSAL DEFINITIONS OF MYOCARDIAL INFARCTION. THE UPPER REFERENCE LIMIT (URL) OF TROPONIN, DEFINED THE 99TH PERCENTILE OF cTnI DISTRIBUTION IN A REFERENCE POPULATION, HAS BEEN CONFIRMED THE DECISION THRESHOLD FOR [place] DIAGNOSIS. Performed By: #### C PENNY, CMP #### [facility] [address] [place] [address] Dr. Tracy Gutierrez ERIN 60 ng/mL Normal 16-96 [facility] Comment on above: Performed By: #### C MADM, CMP #### [facility] [address] [place] [address] Dr. Tracy Gutierrez CBC AUTO DIFFon 05-02-2022 BASO # 0.1 103/ul Normal 0.0-0.1 [facility] Comment on above: Performed By: #### C BC #### [facility] [address] [place] [address] Dr. Tracy Gutierrez Basophils/100 WBC (Bld) 0.6 % Normal 0.2-2.0 [facility] Comment on above: Performed By: #### C BC #### [facility] [address] [place] [address] Dr. Tracy Gutierrez EO # 0.4 103/ul Normal 0.0-0.7 [facility] Comment on above: Performed By: #### C BC #### [facility] [address] [place] [address] Dr. Tracy Gutierrez Eosinophils/100 WBC (Bld) 4.1 % Normal 0.9-7.0 [facility] Comment on above: Performed By: #### C BC #### [facility] [address] [place] [address] Dr. Tracy Gutierrez Erythrocyte distribution width (RBC) [Ratio] 12.7 % Normal 11.0-15.0 [facility] Comment on above: Performed By: #### C BC #### [facility] [address] [place] [address] Dr. Tracy Gutierrez Hematocrit (Bld) [Volume fraction] 44.9 % Normal 42.0-54.0 [facility] Comment on above: Performed By: #### C BC #### [facility] [address] [place] [address] [address] Tracy Gutierrez Hemoglobin (Bld) [Mass/Vol] 14.5 g/dL Normal 14.0-18.0 [facility] Comment on above: Performed By: #### C BC #### [facility] [address] [place] [address] [address] Tracy Gutierrez IG # 0.04 10e3/ul Critically high 0.00-0.03 [facility] Comment on above: Performed By: #### C BC #### [facility] [address] [place] [address] Dr. Tracy Gutierrez IG % 0.4 % Normal 0.0-0.5 [facility] Comment on above: Performed By: #### C BC #### [facility] [address] [place] [address] Dr. Tracy Gutierrez LYMPH # 2.1 103/ul Normal 1.2-3.8 [facility] Comment on above: Performed By: #### C BC #### [facility] [address] [place] [address] Dr. Tracy Gutierrez Lymphocytes/100 WBC (Bld) 20.8 % Normal 20.5-60.0 [facility] Comment on above: Performed By: #### C BC #### [facility] [address] [place] [address] Dr. Tracy Gutierrez MANUAL DIFF REQ NO Normal [facility] Comment on above: Performed By: #### C BC #### [facility] [address] [place] [address] Dr. Tracy Gutierrez MCH (RBC) [Entitic mass] 27.9 pg Normal 25.9-34.0 [facility] Comment on above: Performed By: #### C BC #### [facility] [address] [place] [address] Dr. Tracy Gutierrez MCHC (RBC) [Mass/Vol] 32.3 g/dL Normal 29.9-35.2 [facility] Comment on above: Performed By: #### C BC #### [facility] [address] [address] [address] Tracy Gutierrez MCV (RBC) [Entitic vol] 86.3 fL Normal 80.0-94.0 [facility] Comment on above: Performed By: #### C BC #### [facility] [address] [address] [address] Tracy Gutierrez MONO # 0.7 103/ul Normal 0.3-0.8 [facility] Comment on above: Performed By: #### C BC #### [facility] [address] [address] [address] Tracy Gutierrez Monocytes/100 WBC (Bld) 7.2 % Normal 1.7-12.0 [facility] Comment on above: Performed By: #### C BC #### [facility] [address] [place] [address] Dr. Tracy Gutierrez NEUT # 6.9 103/ul Critically high 1.4-6.5 [facility] Comment on above: Performed By: #### C BC #### [facility] [address] [place] [address] Dr. Tracy Gutierrez Neutrophils/100 WBC (Bld) 66.9 % Normal 43.0-75.0 [facility] Comment on above: Performed By: #### C BC #### [facility] [address] [place] [address] Dr. Tracy Gutierrez Platelet mean volume (Bld) [Entitic vol] 11.1 fL Normal 9.5-13.5 [facility] Comment on above: Performed By: #### C BC #### [facility] [address] [place] [address] Dr. Tracy Gutierrez PLT 237 103/ul Normal 150-450 [facility] Comment on above: Performed By: #### C BC #### [facility] [address] [place] [address] Dr. Tracy Gutierrez RBC 5.20 106/ul Normal 4.70-6.10 [facility] Comment on above: Performed By: #### C BC #### [facility] [address] [address] [address] Tracy Gutierrez WBC 10.3 103/ul Normal 4.0-11.0 [facility] Comment on above: Performed By: #### C BC #### [facility] [address] [address] [address] Tracy Gutierrez PROF 14(COMP METB)on 022 Albumin [Mass/Vol] 3.7 g/dL Normal 3.4-5.0 [facility] Comment on above: Performed By: #### C MADM, CMP #### [facility] [address] [address] [address] Tracy Gutierrez Albumin/Globulin [Mass ratio] 0.9 {ratio} Normal [facility] Comment on above: Performed By: #### C RICKIEM, CMP #### [facility] [address] [place] [address] Dr. Tracy Gutierrez ALP [Catalytic activity/Vol] 77 U/L Normal 46-116 [facility] Comment on above: Performed By: #### C RICKIEM, CMP #### [facility] [address] [place] [address] Dr. Tracy Gutierrez ALT [Catalytic activity/Vol] 46 U/L Normal 16-63 [facility] Comment on above: Performed By: #### C RICKIEM, CMP #### [facility] [address] [address] [address] Tracy Gutierrez Anion gap [Moles/Vol] 10.7 mmol/L Normal [facility] Comment on above: Performed By: #### C MADM, CMP #### [facility] [address] [place] [address] Dr. Tracy Gutierrez AST [Catalytic activity/Vol] 40 U/L Critically high 15-37 [facility] Comment on above: Performed By: #### C MADM, CMP #### [facility] [address] [place] [address] Dr. Tracy Gutierrez Bilirubin [Mass/Vol] 0.5 mg/dL Normal 0.2-1.0 [facility] Comment on above: Performed By: #### C MADM, CMP #### [facility] [address] [address] [address] Tracy Gutierrez Calcium [Mass/Vol] 9.4 mg/dL Normal 8.5-10.1 [facility] Comment on above: Performed By: #### C MADM, CMP #### [facility] [address] [address] [address] Tracy Gutierrez Chloride [Moles/Vol] 102 mmol/L Normal 98-107 [facility] Comment on above: Performed By: #### C MADM, CMP #### [facility] [address] [address] [address] Tracy Gutierrez CO2 [Moles/Vol] 29.6 mmol/L Normal 21.0-32.0 [facility] Comment on above: Performed By: #### C MADM, CMP #### [facility] [address] [place] [address] Dr. Tracy Gutierrez Creatinine [Mass/Vol] 1.14 mg/dL Normal 0.70-1.30 [facility] Comment on above: Performed By: #### C MADM, CMP #### [facility] [address] [address] [address] Tracy Gutierrez EGFR-AF MACEDONIAN >60 Normal >=60 [facility] Comment on above: Performed By: #### C MADM, CMP #### [facility] [address] [address] [address] Tracy Gutierrez EGFR-NON AF MACEDONIAN >60 Normal >=60 [facility] Comment on above: Performed By: #### C MADM, CMP #### [facility] [address] [address] [address] Tracy Gutierrez Globulin (S) [Mass/Vol] 4.1 g/dL Normal [facility] Comment on above: Performed By: #### C MADM, CMP #### [facility] [address] [address] [address] Tracy Gutierrez Glucose [Mass/Vol] 203 mg/dL Critically high 74-106 [facility] Comment on above: Performed By: #### C MADM, CMP #### [facility] [address] [address] [address] Tracy Gutierrez Potassium [Moles/Vol] 4.3 mmol/L Normal 3.5-5.1 [facility] Comment on above: Performed By: #### C MADM, CMP #### [facility] [address] [place] [address] Dr. Tracy Gutierrez Protein [Mass/Vol] 7.8 g/dL Normal 6.4-8.2 [facility] Comment on above: Performed By: #### C RICKIEM, CMP #### [facility] [address] [address] [address] Tracy Gutierrez Sodium [Moles/Vol] 138 mmol/L Normal 136-145 [facility] Comment on above: Performed By: #### C RICKIEM, CMP #### [facility] [address] [place] [address] Dr. Tracy Gutierrez Urea nitrogen [Mass/Vol] 16.0 mg/dL Normal 7.0-18.0 [facility] Comment on above: Performed By: #### C RICKIEM, CMP #### [facility] [address] [place] [address] Dr. Tracy Gutierrez Urea nitrogen/Creatinine [Mass ratio] 14.0 mg/mg Normal [facility] Comment on above: Performed By: #### C RICKIEM, CMP #### [facility] [address] [place] [address] Dr. Tracy Gutierrez XR CHEST 1 Von [...] by: NIKUNJ SALES Date: 2022-05-02 16:53 Normal [facility] Comp Metabolic Profon 2020 (cont.) Normal [facility] Comment on above: Result Comment: Aver age GFR for 70 or more years old: 75 mL/min/1.73sq m Chronic Kidney Disease: <60 mL/min/1.73sq m Kidney failure: <15 mL/min/1.73sq m eGFR calculated using average adult body mass. Additional eGFR calculator available at: http://www.Dole Tian/multiple_crcl_2011.htm Performed By: #### Randall FAST, CP #### [facility] [address] [place], [place] [id number] Instrument Maintenance Supervisor: Abisai Tellez MD #### LIPR #### [facility] [address] [place], [place] [id number] Instrument Maintenance Supervisor: Shaheed Alcocer MD Albumin [Mass/Vol] 4.1 g/dL Normal 3.5-5.2 [facility] Comment on above: Performed By: #### Randall FAST, CP #### [facility] [address] [place], [place] [id number] Instrument Maintenance Supervisor: Abisai Tellez MD #### LIPR #### [facility] [address] [place], [place] [phone] Instrument Maintenance Supervisor: Shaheed Alcocer MD Alkaline Phos 78 U/L Normal 40-129 [facility] Comment on above: Performed By: #### Randall FAST, CP #### [facility] [address] [place], [place] [phone] Instrument Maintenance Supervisor: Abisai Tellez MD #### LIPR #### [facility] [address] [place], [place] [phone] Instrument Maintenance Supervisor: Shaheed Alcocer MD ALT [Catalytic activity/Vol] 34 U/L Normal 5-41 [facility] Comment on above: Performed By: #### Randall FAST, CP #### [facility] [address] [place], [place] [id number] Instrument Maintenance Supervisor: Abisai Tellez MD #### LIPR #### [address] [place], [place] [id number] Instrument Maintenance Supervisor: Shaheed Alcocer MD Anion gap [Moles/Vol] 12 mmol/L Normal 9-17 [facility] Comment on above: Performed By: #### Randall FAST, CP #### [facility] [address] [place], [place] [address]15[address] Instrument Maintenance Supervisor: Abisai Tellez MD #### LIPR #### [address] [id number] Instrument Maintenance Supervisor: Shaheed Alcocer MD AST [Catalytic activity/Vol] 28 U/L Normal <40 [facility] Comment on above: Performed By: #### Randall FAST, CP #### [facility] [address] [id number] ( Instrument Maintenance Supervisor: Abisai Tellez MD #### LIPR #### [address] [address] Instrument Maintenance Supervisor: Shaheed Alcocer MD Bilirubin [Mass/Vol] 0.31 mg/dL Normal 0.30-1.20 [facility] Comment on above: Performed By: #### Randall HERRERA, CP #### [facility] [address] [place], [place] [phone] Instrument Maintenance Supervisor: Abisai Tellez MD #### LIPR #### [address] [address] Instrument Maintenance Supervisor: Shaheed Alcocer MD BUN/CRE Ratio 23 High 9-20 [facility] Comment on above: Performed By: #### Randall FAST, CP #### [facility] [address] [place], [place] [id number] Instrument Maintenance Supervisor: Abisai Tellez MD #### LIPR #### [address] [address] [place] [address] Instrument Maintenance Supervisor: Shaheed Alcocer MD Calcium [Mass/Vol] 8.9 mg/dL Normal 8.6-10.4 [facility] Comment on above: Performed By: #### Randall FAST, CP #### [facility] [address] [place], [place] [phone] Instrument Maintenance Supervisor: Abisai Tellez MD #### LIPR #### [facility] [address] [place] [address] Instrument Maintenance Supervisor: Shaheed Alcocer MD Chloride [Moles/Vol] 96 mmol/L Low 98-107 [facility] Comment on above: Performed By: #### Randall FAST, CP #### [facility] [address] [place] [address] Instrument Maintenance Supervisor: Abisai Tellez MD #### LIPR #### [address] [address] Instrument Maintenance Supervisor: Shaheed Alcocer MD CO2 [Moles/Vol] 25 mmol/L Normal 20-31 [facility] Comment on above: Performed By: #### Randall FAST, CP #### [facility] [address] [place] [address] Instrument Maintenance Supervisor: Abisai Tellez MD #### LIPR #### [address] [address] Instrument Maintenance Supervisor: Shaheed Alcocer MD Creatinine [Mass/Vol] 0.96 mg/dL Normal 0.70-1.20 [facility] Comment on above: Performed By: #### Randall FAST, CP #### [facility] [address] [place] [address] Instrument Maintenance Supervisor: Abisai Tellez MD #### LIPR #### [facility] [address] [place] [address] Instrument Maintenance Supervisor: Shaheed Alcocer MD GFR, Amer >60 Normal >60 [facility] Comment on above: Performed By: #### Z FAST, CP #### [facility] [address] [place], [place] [phone] Instrument Maintenance Supervisor: Abisai Tellez MD #### LIPR #### [address] [id number] Instrument Maintenance Supervisor: Shaheed Alcocer MD GFR,non Amer >60 Normal >60 [facility] Comment on above: Performed By: #### Z FAST, CP #### [facility] [address] [place], [place] 7807390 Instrument Maintenance Supervisor: Abisai Tellez MD #### LIPR #### [address] [address] Instrument Maintenance Supervisor: Shaheed Alcocer MD Glucose [Mass/Vol] 157 mg/dL High 70-99 [facility] Comment on above: Performed By: #### Randall FAST, CP #### [facility] [address] [place], [place] [phone] Instrument Maintenance Supervisor: Abisai Tellez MD #### LIPR #### [address] [address] Instrument Maintenance Supervisor: Shaheed Alcocer MD Potassium [Moles/Vol] 4.7 mmol/L Normal 3.7-5.3 [facility] Comment on above: Performed By: #### Z FAST, CP #### [facility] [address] [place], [place] [phone] Instrument Maintenance Supervisor: Abisai Tellez MD #### LIPR #### [address] [address] Instrument Maintenance Supervisor: Shaheed Alcocer MD Protein [Mass/Vol] 7.4 g/dL Normal 6.4-8.3 [facility] Comment on above: Performed By: #### Z FAST, CP #### [facility] [address] [place] [address] Instrument Maintenance Supervisor: Abisai Tellez MD #### LIPR #### [address] [place] [address] Instrument Maintenance Supervisor: Shaheed Alcocer MD Sodium [Moles/Vol] 133 mmol/L Low 135-144 [facility] Comment on above: Performed By: #### Randall FAST, CP #### [facility] [address] [place] [address] Instrument Maintenance Supervisor: Abisai Tellez MD #### LIPR #### [address] [address] Instrument Maintenance Supervisor: Shaheed Alcocer MD Urea nitrogen [Mass/Vol] 22 mg/dL Normal 8-23 [facility] Comment on above: Performed By: #### Randall FAST, CP #### [facility] [address] [place] [address] Instrument Maintenance Supervisor: Abisai Tellez MD #### LIPR #### [address] [address] Instrument Maintenance Supervisor: Shaheed Alcocer MD Albumin/Glob Ratio NOT REPORTED Normal 1.0-2.5 [facility] Comment on above: Performed By: #### Randall FAST, CP #### [facility] [address] [place] [address] Instrument Maintenance Supervisor: Abisai Tellez MD #### LIPR #### [address] [address] Instrument Maintenance Supervisor: Shaheed Alcocer MD Staging: NOT REPORTED Normal [facility] Comment on above: Performed By: #### Randall FAST, CP #### [facility] [address] [place], [place] [phone] Instrument Maintenance Supervisor: Abisai Tellez MD #### LIPR #### [facility] [employer] [address] [place] [address] Instrument Maintenance Supervisor: Shaheed Alcocer MD Lipid Profileon 09-19-2021 Cholesterol [Mass/Vol] 135 mg/dL Normal <200 [facility] Comment on above: Result Comment: Cholesterol Guidelines: <200 Desirable 200-240 Borderline >240 Undesirable Performed By: #### Randall FAST, CP #### [facility] [address] [place] [address] Instrument Maintenance Supervisor: Abisai Tellez MD #### LIPR #### [address] [address] Instrument Maintenance Supervisor: Shaheed Alcocer MD Cholesterol in HDL [Mass/Vol] 30 mg/dL Low >40 [facility] Comment on above: Result Comment: HDL Guidelines: <40 Undesirable 40-59 Borderline >59 Desirable Performed By: #### Randall FAST, CP #### [facility] [address] [place] [address] Instrument Maintenance Supervisor: Abisai Tellez MD #### LIPR #### [address] [address] Instrument Maintenance Supervisor: Shaheed Alcocer MD Cholesterol in LDL [Mass/Vol] 80 mg/dL Normal 0-130 [facility] Comment on above: Result Comment: LDL Guidelines: <100 Desirable 100-129 Near to/above Desirable 130-159 Borderline >159 Undesirable Direct (measured) LDL and calculated LDL are not interchangeable tests. Performed By: #### Randall FAST, CP #### [facility] [address] [place], [place] [phone] Instrument Maintenance Supervisor: Abisai Tellez MD #### LIPR #### [address] [id number] Instrument Maintenance Supervisor: Shaheed Alcocer MD Cholesterol.total/Apple sterol in HDL [Mass ratio] 4.5 {ratio} Normal <5 [facility] Comment on above: Performed By: #### Z FAST, CP #### [facility] [address] [place], [place] 7155190 Instrument Maintenance Supervisor: Abisai Tellez MD #### LIPR #### [facility] [address] [place] [address] Instrument Maintenance Supervisor: Shaheed Alcocer MD Triglyceride [Mass/Vol] 126 mg/dL Normal <150 [facility] Comment on above: Result Comment: Triglyceride Guidelines: <150 Desirable 150-199 Borderline 200-499 High >499 Very high Based on AHA Guidelines for fasting triglyceride, July 2012. Performed By: #### Z FAST, CP #### [facility] [address] [place], [place] [phone] Instrument Maintenance Supervisor: Abisai Tellez MD #### LIPR #### [address] [address] Instrument Maintenance Supervisor: Shaheed Alcocer MD Cholesterol,VLDL NOT REPORTED Normal 11-04 [facility] Comment on above: Performed By: #### Z FAST, CP #### [facility] [address] [place] [address] Instrument Maintenance Supervisor: Abisai Tellez MD #### LIPR #### [address] [address] Instrument Maintenance Supervisor: Shaheed Alcocer MD Patient fasting?on 1 Patient fasting? YES Normal [facility] Comment on above: Performed By: #### Z FAST, CP #### [facility] [address] [place], [place] [id number] Instrument Maintenance Supervisor: Abisai Tellez MD #### LIPR #### [address] [address] Instrument Maintenance Supervisor: Shaheed Alcocer MD COVID Quick Testingon 2020 Result Negative [employer] Other Quick Fluon 09-16-2021 FLUAV Ab CF (S) [Titer] Negative N [employer] Other FLUBV Ab CF (S) [Titer] Negative N [employer] Other [id number] 07-20-2021 SARS-CoV-2 (COVID-19) RNA GARRY+probe Ql (Unsp spec) Normal [facility] Comment on above: Performed By: #### C OVID #### [address] [place], [place] 2624608 Instrument Maintenance Supervisor: Shaheed Alcocer MD [facility] [address] [place] [address] Instrument Maintenance Supervisor: Abisai Tellez MD SARS-CoV-2 (COVID-19) RNA GARRY+probe Ql (Unsp spec) Not detected Normal NOTDET [facility] Comment on above: Result Comment: The specimen is NEGATIVE for SARS-CoV-2, the novel coronavirus associated with COVID-19. A negative result does not rule out COVID-19. Carole SARS-CoV-2 for use on the [employer] is a real-time RT-PCR test intended [...] this assay. Fact sheet for Healthcare Providers: https://www.fda.gov/media/060045/download Fact sheet for Patients: https://www.fda.gov/media/686038/download METHODOLOGY: RT-PCR Performed By: #### C OVID #### [facility] [address] [place], [place] 1375[address] Instrument Maintenance Supervisor: Shaheed Alcocer MD [facility] [address] [place] [address] Instrument Maintenance Supervisor: Abisai Tellez MD [id number] 07-19-2021 SARS-CoV-2 (COVID-19) RNA GARRY+probe Ql (Unsp spec) .NASOPHARYNGEAL SWAB Normal [facility] Comment on above: Performed By: #### C OVID #### [facility] [address] [place] [address] Instrument Maintenance Supervisor: Shaheed Alcocer MD [facility] [address] 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 Patient Status:Out Patient. Comments:INDICATIONS: 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) ([facility]) I83.9, R.29.810 Basic Classification of ICA Stenosis: [...] side. - Additional Measurements:ICAPSV/C CAPSV 1.47.ICAEDV/CCAEDV 2.54. 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 Patient Status:Out Patient. Comments:INDICATIONS: 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) ([facility]) I83.9, R.29.810 Basic Classification of ICA Stenosis: [...] side. - Additional Measurements:ICAPSV/C CAPSV 1.47.ICAEDV/CCAEDV 2.54. [place], [place] CT HEAD WO CONTRASTon 2019 No acute intracrania l abnormality. [place], [place] EXAMINATION: CT OF THE HEAD WITHOUT [...] droop due to acute cerebrovascular accident (CVA) ([facility]) TECHNOLOGIST PROVIDED HISTORY: Left facial droop with [...] of the visualized skull or soft tissues. [place], [place], Mhpn Incoming Radiant Results From [employer]/Voice Assist - 12/08/2019 4:41 PM EST EXAMINATION: CT [...] droop due to acute cerebrovascular accident (CVA) ([facility]) TECHNOLOGIST PROVIDED HISTORY: Left facial droop with [...] soft tissues. IMPRESSION: No acute intracranial abnormality. 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 Normal [facility] CBCon 08-03-2017 Erythrocyte distribution width Auto Ratio (RBC) 13.9 % Normal 12.5-15.4 [facility] Comment on above: Performed By: #### C BC ####[address] [place] [address] Erythrocytes (RBC) 5.09 10*6/uL Normal 4.5-5.9 [facility] Comment on above: Performed By: #### C BC ####[address] [address] Hematocrit (HCT) 44.0 % Normal 41-53 [facility] Comment on above: Performed By: #### C BC ####[address] [address] Hemoglobin mass conc (Bld) 14.2 g/dL Normal 13.5-17.5 [facility] Comment on above: Performed By: #### C BC ####[address] [address] MCH 27.9 pg Normal 26-34 [facility] Comment on above: Performed By: #### C BC ####[address] [address] MCHC mass conc (RBC) 32.3 g/dL Normal 31-37 [facility] Comment on above: Performed By: #### C BC ####[address] [address] MCV 86.3 fL Normal 80-100 [facility] Comment on above: Performed By: #### C BC ####[address] [address] Platelet mean volume (PMV) 9.2 fL Normal 6.0-12.0 [facility] Comment on above: Result Comment: [id number] [place] [address] Performed By: #### C BC ####[address] [address] Platelets 170 10*3/uL Normal 140-450 [facility] Comment on above: Performed By: #### C BC ####[address] [address] WBC (Leukocytes) 9.4 10*3/uL Normal 3.5-11.0 [facility] Comment on above: Performed By: #### C BC ####[address] [address] Comp Metabolic Profon 2016 Aspartate aminotransferase (AST) 31 U/L Normal <40 [facility] Comment on above: Performed By: #### L IPR, CP ####[address] [address] (cont.) Normal [facility] Comment on above: Result Comment: Aver age GFR for 60-69 years old: 85 mL/min/1.73sq mChronic Kidney Disease: <60 mL/min/1.73sq mKidney failure: <15 mL/min/1.73sq meGFR calculated using average adult body mass. Additional eGFR calculator available at:http://www.Intent.clinovo/multiple_crcl_2012.htm[address] [place] [address] Performed By: #### L IPR, CP ####[address] [address] Alanine aminotransferase (ALT) 34 U/L Normal 5-41 [facility] Comment on above: Performed By: #### L IPR, CP ####[address] [address] Albumin 3.5 g/dL Normal 3.5-5.2 [facility] Comment on above: Performed By: #### L IPR, CP ####[address] [address] Albumin/Globulin Ratio 1.0 {ratio} Normal 1.0-2.5 [facility] Comment on above: Performed By: #### L IPR, CP ####[address] [address] Alkaline Phos 82 U/L Normal 40-129 [facility] Comment on above: Performed By: #### L IPR, CP ####[address] [address] Anion gap 12 mmol/L Normal 9-17 [facility] Comment on above: Performed By: #### L IPR, CP ####[address] [address] Bilirubin Ql (U) 0.57 mg/dL Normal 0.3-1.2 [facility] Comment on above: Performed By: #### L IPR, CP ####[address] [address] Calcium 9.0 mg/dL Normal 8.6-10.4 [facility] Comment on above: Performed By: #### L IPR, CP ####[address] [address] Chloride 100 mmol/L Normal 98-107 [facility] Comment on above: Performed By: #### L IPR, CP ####[address] [address] CO2 28 mmol/L Normal 20-31 [facility] Comment on above: Performed By: #### L IPR, CP ####[address] [address] Creatinine 0.95 mg/dL Normal 0.70-1.20 [facility] Comment on above: Performed By: #### L IPR, CP ####[address] [address] GFR, Amer >60 Normal >60 [facility] Comment on above: Performed By: #### L IPR, CP ####[address] [address] GFR,non Amer >60 Normal >60 [facility] Comment on above: Performed By: #### L IPR, CP ####[address] [address] Glucose mass conc 125 mg/dL High 70-99 [facility] Comment on above: Performed By: #### L IPR, CP ####[address] [address] Potassium molar conc 4.7 mmol/L Normal 3.7-5.3 [facility] Comment on above: Performed By: #### L IPR, CP ####[address] [address] Protein 6.9 g/dL Normal 6.4-8.3 [facility] Comment on above: Performed By: #### L IPR, CP ####[address] [address] Sodium 140 mmol/L Normal 135-144 [facility] Comment on above: Performed By: #### L IPR, CP ####[address] [address] Urea nitrogen 18 mg/dL Normal 8-23 [facility] Comment on above: Performed By: #### L IPR, CP ####[address] [address] BUN/CRE Ratio NOT REPORTED Normal 9-20 [facility] Comment on above: Performed By: #### L IPR, CP ####[address] [address] Staging: NOT REPORTED Normal [facility] Comment on above: Performed By: #### L IPR, CP ####[address] [address] Discharge Summaryon 08-03-20 17 HIM IP Note OR [employer] 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 Normal [facility] Lipid Profileon 08-03-2017 Cholesterol 143 mg/dL Normal <200 [facility] Comment on above: Result Comment: Chol esterol Guidelines: <200 Desirable 200-240 Borderline >240 Undesirable Performed By: #### L IPR, CP ####[address] [address] Cholesterol to HDL Ratio 4.9 {ratio} Normal <5 [facility] Comment on above: Performed By: #### L IPR, CP ####[address] [address] HDL Cholesterol 29 mg/dL Low >40 [facility] Comment on above: Result Comment: HDL Guidelines: <40 Undesirable 40-59 Borderline >59 Desirable Performed By: #### L IPR, CP ####[employer] [address] [place] [address] LDL Cholesterol 58 mg/dL Normal 0-130 [facility] Comment on above: Result Comment: LDL Guidelines: <100 Desirable 100-129 Near to/above Desirable 130-159 Borderline >159 UndesirableDirect (measured) LDL and calculated LDL are not interchangeable tests. Performed By: #### L IPR, CP ####[facility] [address] [place] [address] Triglyceride 282 mg/dL High <150 [facility] Comment on above: Result Comment: Trig lyceride Guidelines: <150 Desirable 150-199 Borderline 200-499 High >499 Very high Based on AHA Guidelines for fasting triglyceride, July 2012.[employer] TechnologiesStephanie Ville [address] [place] [address] Performed By: #### L IPR, CP ####[address] [address] Cholesterol in VLDL mass conc NOT REPORTED Normal 11-04 [facility] Comment on above: Performed By: #### L IPR, CP ####[address] [address] Brain Natri. Peptideon 08-02 BNP Normal [facility] Comment on above: Result Comment: Pro- BNP Reference Range:Rule Out: <300Grey Zone: Age <50 300-450 Age 50-75 300-900 Age >75 300-1800Usually represents mild to moderate HF but other cardiopulmonary causes cannot be ruled out.Rule In: Age <50 >450 Age 50-75 >900 Age >[address] [address] Performed By: #### B SECURITY RESEARCHER, TROPI, TSH, MG, PT ####[address] [address] BNP 347 pg/mL High <300 [facility] Comment on above: Result Comment: Pro- BNP results cannot be compared to BNP results. Performed By: #### B SECURITY RESEARCHER, TROPI, TSH, MG, PT ####[address] [address] History and Physicalon 08-02 HIM IP Note OR [employer] 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 Normal [facility] Magnesiumon 08-02-2017 Magnesium 1.8 mg/dL Normal 1.6-2.6 [facility] Comment on above: Result Comment: [facility] [employer] [address] [place] [address] Performed By: #### B SECURITY RESEARCHER, TROPI, TSH, MG, PT ####[address] [address] PTon 08-02-2017 INR Coag RelTime (PPP) 0.9 {INR} Normal [facility] Comment on above: Result Comment: Ther apeutic Range: Moderate Anticoagulant Intensity: INR = 2.0-3.0 High Anticoagulant Intensity: INR = 2.5-3.[address] [address] Performed By: #### B SECURITY RESEARCHER, TROPI, TSH, MG, PT ####[address] [address] Prothrombin time (PT) Coag time (PPP) 9.9 s Normal 9.4-12.6 [facility] Comment on above: Performed By: #### B SECURITY RESEARCHER, TROPI, TSH, MG, PT ####[address] [address] Thyroid Stim. Horm.on 2016 Thyroid stimulating hormone (TSH) 1.15 m[IU]/L Normal 0.30-5.00 [facility] Comment on above: Result Comment: [address] [address] Performed By: #### B SECURITY RESEARCHER, TROPI, TSH, MG, PT ####[address] [address] Troponinon 08-02-2017 Troponin I.cardiac mass conc Normal [facility] Comment on above: Result Comment: Refe rence Range: <0.03 Within reference range. 0.03-0.09 Possible myocardial damage.Repeat at appropriate intervals to rule out chronic elevation. >= 0.10 Indicative of myocardial damage.[address] [address] Performed By: #### T ROPI ####[address] [address] Troponin T.cardiac mass conc ug/L Normal <0.03 [facility] Comment on above: Result Comment: Trop onin T results cannot be compared to Troponin-I results. Performed By: #### T ROPI ####[address] [address] Troponin I.cardiac mass conc Normal [facility] Comment on above: Result Comment: Refe rence Range: <0.03 Within reference range. 0.03-0.09 Possible myocardial damage.Repeat at appropriate intervals to rule out chronic elevation. >= 0.10 Indicative of myocardial damage.[facility] [address] [place] [address] Performed By: #### T ROPI ####[address] [address] Troponin T.cardiac mass conc ug/L Normal <0.03 [facility] Comment on above: Result Comment: Trop onin T results cannot be compared to Troponin-I results. Performed By: #### T ROPI ####[address] [address] Troponin I.cardiac mass conc Normal [facility] Comment on above: Result Comment: Refe rence Range: <0.03 Within reference range. 0.03-0.09 Possible myocardial damage.Repeat at appropriate intervals to rule out chronic elevation. >= 0.10 Indicative of myocardial damage.[employer] [address] [place] [address] Performed By: #### T ROPI ####[address] [address] Troponin T.cardiac mass conc ug/L Normal <0.03 [facility] Comment on above: Result Comment: Trop onin T results cannot be compared to Troponin-I results. Performed By: #### T ROPI ####[address] [address] Troponin I.cardiac mass conc Normal [facility] Comment on above: Result Comment: Refe rence Range: <0.03 Within reference range. 0.03-0.09 Possible myocardial damage.Repeat at appropriate intervals to rule out chronic elevation. >= 0.10 Indicative of myocardial damage.[facility] [address] [place] [address] Performed By: #### B SECURITY RESEARCHER, TROPI, TSH, MG, PT ####[address] [place], [place] 6[address] Troponin T.cardiac mass conc ug/L Normal <0.03 [facility] Comment on above: Result Comment: Trop onin T results cannot be compared to Troponin-I results. 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 [facility] History and Physicalon 07-10 HIM IP Note OR [employer]ending [employer] 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 Normal [facility] Vital Signs Date Time Vital Sign Value Performing Clinician Facility 01-20-2024 15:12-0400 Blood Pressure Location [employer] [facility] [place] 01-20-2024 15:12-0400 Diastolic blood pressure 86 mm[Hg] [employer] [facility] [place] 01-20-2024 15:12-0400 Heart rate 80 /min [facility] [facility] 01-20-2024 15:12-0400 Respiratory rate 16 /min [employer] [facility] 01-20-2024 15:12-0400 Systolic blood pressure 130 mm[Hg] [employer] [facility] 09-16-2021 10:45-0500 Body height 172.72 cm Pat Jesus Other [employer] Other 09-16-2021 10:45-0500 Body mass index (BMI) [Ratio] 41.05 kg/m2 Pat Jesus Other [employer] Other 09-16-2021 10:45-0500 Body temperature 99 [degF] Pat Jesus Other [employer] Other 09-16-2021 10:45-0500 Body weight 122.47 kg Pat Jesus Other [employer] Other 09-16-2021 10:45-0500 Respiratory rate 18 /min Pat Jesus Other [employer] Other 09-16-2021 10:45-0500 SaO2% (BldA) [Mass fraction] 96 % Pat Jesus Other [employer] Other 05-31-2019 10:25-0400 BP Diastolic 78 mm[Hg] [place] 05-31-2019 10:25-0400 BP Systolic 126 mm[Hg] [place] 05-31-2019 10:25-0400 Pulse (Heart Rate) 76 /min [place] 05-31-2019 10:25-0400 Pulse Oximetry 95 % [place] 05-31-2019 10:25-0400 Respiratory Rate 16 /min [facility] [place] 05-31-2019 09:53-0400 Body Temperature 96.8 [degF] [facility] [place] 05-31-2019 07:24-0400 BMI (Body Mass Index) 39.43 kg/m2 [place] 05-31-2019 07:24-0400 Body weight 121.11 kg [place] 05-31-2019 07:24-0400 Height 175.3 cm [place] Encounters Encounter Date Encounter Type Care Provider Facility Start: 03-16-2024 End: 03-16-2024 ambulatory SHAIKH DAIL Not Available Start: 01-20-2024 End: 01-21-2024 ambulatory SHAIKH DALI Facility:[facility] Start: 01-20-2024 End: 01-20-2024 Patient encounter procedure Ross Chamberlain SULTANA [facility] Start: 12-16-2023 ambulatory SHAIKH DALI Facility: [facility] Start: 12-16-2023 End: 12-16-2023 ambulatory SHAIKH DALI Not Available Start: 10-21-2023 End: 10-21-2023 ambulatory SHAIKH JAQUELINED Not Available Start: 2023 End: 2023 ambulatory SHAIKH DALI Not Available Start: 04-07-2023 End: 04-07-2023 ambulatory [facility] Start: 11-26-2022 ambulatory [facility] Facility: [facility] Start: 11-19-2022 End: 11-20-2022 ambulatory [facility] Facility:[facility] Start: 10-30-2022 End: 10-30-2022 ambulatory [facility] Start: 10-29-2022 End: 10-29-2022 ambulatory Shaikh Dali Facility:[facility] Start: 10-29-2022 End: 10-29-2022 ambulatory MD Shaikh Mcnally Work Phone: [facility] Work Phone: Start: 10-29-2022 End: 10-29-2022 Patient encounter procedure MD Shaikh Mcnally Work Phone: [facility] [address] Work Phone: Start: 05-02-2022 End: 05-02-[address] DOCTOR RODRIGES Facility:[facility] Start: 09-19-2021 End: 09-20-2021 ambulatory [facility] Start: 09-16-2021 (URG) Urgent Care Visit Pat hunter [facility] Start: 09-16-2021 End: 09-16-2021 ambulatory [facility] Other Start: 07-19-2021 End: 07-20-2021 ambulatory [facility] Start: 07-19-2021 End: 07-19-2021 Subsequent hospital visit by physician Suki Covid Screening Schedule 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) Start: 05-31-2019 End: 05-31-2019 Subsequent hospital visit by physician Felix Mayo Work Phone: [facility] Start: 03-04-2018 End: 03-05-2018 Ambulatory DEFAULT PHYSICIAN Facility:[facility] Start: 08-02-2017 End: 08-03-2017 Evaluation and management of inpatient NENA NUNZE [facility] Start: 07-10-2017 End: 07-11-2017 Ambulatory NESHATHAIS Bobby RAMIREZ [facility] Procedures Date Procedure Procedure Detail Performing Clinician Start: 08-02-2020 Ultrasound exam AAA screen EUSEBIO DANIELS Start: 12-08-2019 Duplex scan extracra nial [...] 08-03-2017 INITIATE OXYGEN THER APY PROTOCOL NENA WEBBM Start: 08-03-2017 CBC NENA WEBB M Start: 08-03-2017 INTAKE AND OUTPUT NENA NUNEZ Start: 08-02-2017 TROPONIN NENA WEBB M Start: 08-02-2017 TROPONIN NENA WEBB M Start: 08-02-2017 INITIATE OXYGEN THER APY PROTOCOL NENA WEBBM Start: 08-02-2017 TROPONIN NENA WEBB M Start: 08-02-2017 BRAIN NATRIURETIC PEPTIDE NENA NUNEZ Start: 08-02-2017 MAGNESIUM NENA WEBB M Start: 08-02-2017 PROTIME-INR NENA Mane Start: 08-02-2017 [...] PROPHYLAXIS NENA NUNEZ Start: 08-02-2017 TELEMETRY MONITORING LA MADY NUNEZ Start: 08-01-2017 PATIENT STATUS (DIRECT) NENA NUNEZ Start: 07-11-2017 POCT GLUCOSE NENA WEBB M Start: 07-11-2017 POC GLUCOSE FINGERSTICK NENA NUNEZ Start: 07-11-2017 DISCHARGE PATIENT NENA NUNEZ Start: 07-11-2017 POCT GLUCOSE NENA Mane Start: 07-11-2017 INITIATE OXYGEN THER APY PROTOCOL NENA WEBBM Start: 07-11-2017 POCT GLUCOSE NENA Mane Start: [...] CARDIAC C ATH LAB PROCEDURE NENA NUNEZ Start: 1950 Colonoscopy Ross IRBY Cardiac ablation usi ng fluoroscopy guidance Ross WEINBERG Colonoscopy Ross WEINBERG Partial resection of colon M ichpari WEINBERG Placement of stent i n coronary artery Ross WEINBERG Plan of Treatment Date Care Activity Detail Author Start: 05-31-2029 Screening for malignant neoplasm of colon Colon cancer screen colonoscopy [facility] Work Phone: Start: 07-18-2022 End: 07-18-2022 Patient encounter procedure 07/18/2022 Office Visit Pulmonology Steve Lynn, [address] [place] [address] [phone] [facility] Start: 03-20-2022 Diabetic foot examination Diabetic foot exam [facility] Phone: Start: 03-20-2022 Diabetic microalbuminuria test Diabetic microalbuminuria test [facility] Phone: Start: 03-20-2022 Hemoglobin A1c measurement A1C test (Diabetic or Prediabetic) [facility] Phone: Start: 11-20-2021 Diabetic retinal exam Diabetic retinal exam [facility] Phone: Start: 10-11-2021 End: 10-11-2021 Patient encounter procedure 10/11/2021 Office Visit Neurology Castillo Clark MD [address] [place] [address] [place] [address] [facility] Start: 09-19-2021 End: 09-19-2021 Patient encounter procedure 09/19/2021 Office Visit Family Medicine Eusebio Daniels MD [address] [place] [address] [facility] Start: 07-27-2021 Annual Wellness Visit (AWV) Annual Wellness Visit (AWV) [facility] Phone: Start: 06-06-2021 Influenza vaccination Flu vaccine (#1) [facility] Phone: Start: 07-02-2020 A1C test (Diabetic or Prediabetic) A1C test (Diabetic or Prediabetic) [facility] Start: 07-02-2020 Creatinine measurement [facility]: Start: 07-02-2020 Creatinine monitoring Creatinine monitoring [facility] [place] Start: 07-02-2020 Diabetic microalbuminuria test Diabetic microalbuminuria test [facility] Start: 07-02-2020 Lipid panel [facility] Start: 07-02-2020 Lipid screen Lipid screen [facility] Start: 07-02-2020 Potassium monitoring Potassium monitoring [place], [place] Start: 06-29-2020 End: 06-29-2020 Office Visit 06/29/2020 Office Visit Pulmonology Steve Lynn DO [address] [facility] [address] [place] [address] [phone] [facility] Start: 05-31-2020 Colon cancer screen colonoscopy Colon cancer screen colonoscopy [place], [place] Start: 04-13-2020 Colon cancer screen colonoscopy Colon cancer screen colonoscopy [place] Start: 04-01-2020 [object Object] Diabetic foot exam [place] Start: 02-03-2020 End: 02-03-2020 Office Visit 02/03/2020 Office Visit Neurology Castillo Clrak MD [address] [place] [address] [place] [address] [facility] NEUROLOGY Start: 07-05-2019 End: 07-05-2019 Office Visit 07/05/2019 Office Visit Family Medicine Eusebio Daniels MD [address] [place], [place] [id number] [facility] [place] Start: 07-02-2019 A1C test (Diabetic or Prediabetic) A1C test (Diabetic or Prediabetic) [place] Start: 06-17-2019 End: 06-17-2019 Office Visit 06/17/2019 Office Visit Pulmonology Steve Lynn DO [address] [facility] [address] [place] [address] [phone] [facility] [place] Start: 06-06-2019 Influenza vaccination Flu vaccine (#1) [place] Start: 05-25-2019 Diabetic microalbuminuria test Diabetic microalbuminuria test [place] Start: 04-15-2019 Pneumococcal 65+ years Vaccine (2 of 2 - PPSV23) Pneumococcal 65+ years Vaccine (2 of 2 - PPSV23) [place] Start: 03-21-2019 Annual Wellness Visit (AWV) Annual Wellness Visit (AWV) [place] Start: 02-11-2019 Lipid screen Lipid [place] Start: 11-15-2018 Diabetic retinal exam Diabetic retinal exam [place], [place] Start: 08-03-2018 Creatinine monitoring Creatinine monitoring [place] Start: 08-03-2018 Potassium monitoring Potassium monitoring [place] Start: 05-09-2017 Shingles Vaccine (2 of 3) Shingles Vaccine (2 of 3) [place], [place] Start: 2013 Annual Wellness Visit (AWV) Annual Wellness Visit (AWV) [place] Start: 2000 Screening for malignant neoplasm of lung Low dose CT lung screening [facility] Phone: Start: 1969 DTaP/Tdap/Td vaccine (1 - Tdap) DTaP/Tdap/Td vaccine (1 - Tdap) [place], [place] Start: 1969 Hepatitis B vaccine (1 of 3 - Risk 3-dose series) Hepatitis B vaccine (1 of 3 - Risk 3-dose series) [place], [place] Start: 1950 AAA screen AAA screen [place], [place] Start: 1950 Hepatitis C screen Hepatitis C screen [place], [place] Start: 1950 Hepatitis C screening Hepatitis C screen [facility] Phone: End: 07-19-2021 COVID-19 COVID-19 Lab Routine Covid 1 Occurrences starting 07/19/2021 until 07/19/2021 [facility] [employer] Phone: Comment on above: 1 Occurrences starting 07/19/2021 until 07/19/2021 COVID-19 COVID-19 Lab Rou missy COVID 07/19/2021 12:11 PM EDT [facility] [employer] Phone: End: 05-31-2019 POCT glucose POCT glucose Point of Care Testing Routine One Time for 1 Occurrences starting 05/31/2019 until 05/31/2019 [place] Comment on above: One Time for 1 Occurrences starting 05/07 until 05/31/2019 Surgical Pathology Surgical Path ology Lab Routine ONE TIME for 1 Occurrences starting 05/31/2019 [place] Comment on above: ONE TIME for 1 Occurrences starting 05/07 Immunizations Immunization Date Immunization Notes Care Provider Mariaelena gaviriasmitha 09-17-2023 influenza virus vacc ine, unspecified formulation Ross WEINBERG [facility] [place] 06-29-2021 COVID-19, Pfizer, PF , 30mcg/0.3mL Mthz Schedule [facility] [place] Comment on above: Result Comment: 2023: [id number] 06-08-2021 SARS-CoV-2 (COVID-19 ) mRNA BNT-162b2 vax Ross SULTANA [facility] [place] Comment on above: Result Comment: 2023: [id number] 07-16-2020 influenza, high dose seasonal, preservative-free Mthz Schedule [facility] Phone: 07-16-2020 Influenza, Quadv, adjuvanted, 65 yrs +, IM, PF (Fluad) Mthz Schedule [facility] [employer] Phone: 07-05-2019 influenza, injectabl e, quadrivalent, preservative free [facility], [place] 07-05-2019 pneumococcal polysaccharide vaccine, 23 valent [facility], [place] 03-14-2017 zoster vaccine, live [facility], [place] 07-08-2016 Influenza Vaccine, unspecified formulation [facility] , [place] 04-05-2016 pneumococcal conjuga te vaccine, 13 valent [facility], [place] 07-26-2015 influenza virus vacc ine, unspecified formulation [facility] , [place] 04-15-2014 pneumococcal polysaccharide vaccine, 23 valent [place], [place] Payers Date Payer Category Payer Self-pay 2021 Unknown [id number] 2020 Medicare [id number] 2019 Private Health Insurance [id number] 2018 Private Health Insurance AETJASON AETJASON SENIOR MEDICARE SUPP xxxxxxxxxx 2018-Present [phone] [address] [place] [address] xxxxxxxxxx [id number] 2016 Unknown [id number] 2015 Medicare [id number] 2014 Medicare MEDICARE MEDICAR E PART A AND B xxxxxxxxxxx 2014-Present [phone] [address] [address] [place] [address] xxxxxxxxxxx [id number] 2014 Medicare [id number] 1950 Unknown [id number] [id number]. 173 1950 Unknown [id number] [id number]. 173 1950 Unknown [id number] [id number]. 174 1950 Unknown [id number] [id number]. 593 1950 Unknown [id number] [id number]. 593 1950 Unknown [id number] [id number]. 593 1950 Unknown [id number] 2.16.840.1.194512.3.579.2. 727 1950 Unknown [id number] 2.16.840.1.634255.3.579.2. 1259 1950 Unknown [id number] 2.16.840.1.170376.3.579.2. 1259 1950 Unknown [id number] 2.16.840.1.358848.3.579.2. 1259 1950 Unknown [id number] [id number]. 1259 Unknown Unknown [id number] [id number]. 531 Social History Date Type Detail Facility Start: 05-31-2019 End: 01-20-2024 Tobacco smoking status NHIS Former smoker [facility] End: 03-21-2010 History of tobacco use Current sm[place] Start: 05-31-2019 End: 07-19-2021 Cigarettes smoked current (pack per day) - Reported [place] Start: 05-31-2019 Alcohol intake No [facility] Start: 1950 Sex Assigned At Not on file [place] Start: 11-04-2019 End: 07-19-2021 Alcohol intake Current non-drinker of alcohol (finding) [place] Start: 07-19-2021 Tobacco use and exposure Never used [employer] [facility] Start: 03-20-2021 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 [id number] 1 each by Does n ot apply route daily [id number] Test BS daily DX : E11.65 [id number] Start: 04-06-2020 Functional Status Date Assessment Result Facility 01-20-2024 Functional Status N/A [facility] Clinical Notes 09-16-2021 to 01-26-2024 Note Date & Type Note Facility 01-26-2024 Note Chief Complaint consultation for colonoscopy HPI Staff 73 year old male presents on consultation from Dr. Mcnally for screening colonoscopy. No known family history of colon cancer. Patient on Eliquis. History of Present Illness 73 yo male with h/o CAD, atrial fibrillation, on Eliquis, htn, DMII, hyperlipidemia, CVA, polyneuropathy, referred for colorectal screening; denies change in bms or blood in stools; no abdominal complaints; denies asa or NSAID use, no SBE prophylaxis; no abdominal operations; last colonoscopy 2018 with removal of several small hyperplastic rectal polyps; no fmhx of GI malignancy or IBD; no tobacco use. Review of Systems PHQ Score Initial Depression Screen Score: 0 SCORE ROS - Provider Constitutional: no fever, no sweats, no weight loss. Eyes: yes glasses, no blurred vision, no visual loss. ENMT: no dentures, no hoarseness, no swallowing difficulties, no hearing loss, no ear infection(s), no nose bleeds. Cardiovascular: normal blood pressure, no chest pain, regular heartbeat, no heart murmur. Respiratory: no shortness of breath, no cough, no asthma, no wheezing. Gastrointestinal: no nausea, no vomiting, no diarrhea, no constipation, no blood in stool, no change in bowel habits, no abdominal pain, no hepatitis. Genitourinary: no kidney stones, no urine infection, no dysuria. Musculoskeletal: no pain, no weakness. Skin: no changing moles, no rash, no skin lumps. Neurologic: no seizures, no epilepsy, no headache. Psychiatric: no emotional or psychiatric problem. Heme/Lymph: no bleeding problems, no anemia, no blood clots, no transfusions. Allergy/Immunologic: no swollen lymph nodes/glands, no IV drug abuse. Other: Additional ROS info: Except as noted in the above Review of Systems and in the History of Present Illness, all other systems have been reviewed and are negative or noncontributory. Physical Exam Vitals & Measurements HR: 80(Peripheral) RR: 16 BP: 130/86 HT: 68 in HT: 172.7 cm WT: 126 kg WT: 277.2 lb BMI: 42.25 HEENT: normal conjunctiva, sclera clear, no scleral icterus, EOM intact, PERRLA, oral mucosa moist without lesions. Neck: trachea midline, no mass, symmetric, no thyromegaly or nodules, no adenopathy Respiratory: lungs CTA, respirations non labored. Cardiovascular: regular rate and rhythm, no murmur, no pedal edema or varicosities. Gastrointestinal: obese, soft, non distended, no tenderness, no masses, no palpable hernias, diastasis recti no, no hepatosplenomegaly; normal bs Lymphatic: no cervical adenopathy, no supraclavicular adenopathy. Musculoskeletal: normal gait, digits and nails without infection, nodes, cyanosis, clubbing. Skin: no rashes, no lesions, no ulcers, no subcutaneous nodules, induration. Psychiatric/Neuro: oriented to time, place, person, judgement normal, affect appropriate for age, insight intact, no focal deficits. Tests:, review of old records completed , Discussed surgical options, risks, and possible complications with patient. Assessment/Plan 1. Screening for malignant neoplasm of colon (Z12.11: Encounter for screening for malignant neoplasm of colon) recommend screening colonoscopy in 2028, patient does not have risk factors for increased surveillance; will place in recall; call sooner if problems/questions. 2. BMI 40.0-44.9, adult (Z68.41: Body mass index [BMI] 40.0-44.9, adult) recommend diet and exercise. Follow-up No qualifying data available Problem List/Past Medical History Ongoing Allergic rhinitis ASCVD (arteriosclerotic cardiovascular disease) Atrial fibrillation BMI 40.0-44.9, adult Chronic cough Chronic obstructive pulmonary disease Diabetes Diabetic polyneuropathy Diverticulosis History of CVA (cerebrovascular accident) HTN (hypertension) Hyperlipidemia Insomnia Morbid obesity Screen for colon cancer Screening for malignant neoplasm of colon Vitamin D deficiency Historical No qualifying data Procedure/Surgical History Colonoscopy (1950), Cardiac ablation using fluoroscopy guidance, Colonoscopy, Colonoscopy, Partial resection of colon, Placement of stent in coronary artery. Medications Albuterol (Eqv-ProAir HFA), 2 puff(s), Inhalation, q4hr, PRN Amaryl 2 mg Tab, 2 mg= 1 tab(s), Oral, Daily Aricept 10 mg Tab, 10 mg= 1 tab(s), Oral, Once a day (at bedtime) aspirin 81 mg Oral EC Tab, 81 mg= 1 tab(s), Oral, Daily atorvastatin 80 mg Tab, 80 mg= 1 tab(s), Oral, Daily diltiazem 30 mg Tab, 60 mg= 2 tab(s), Oral, BID DuoNeb 2.5 mg-0.5 mg/3 mL Soln-Inh, 3 mL, NEB, QID Eliquis 5 mg oral tablet, 5 mg= 1 tab(s), Oral, BID gabapentin 300 mg Cap, 300 mg= 1 cap(s), Oral, TID Mysoline 50 mg Tab, 50 mg= 1 tab(s), Oral, Once a day (at bedtime) nitroglycerin 0.4 mg sublingual Tab, 0.4 mg= 1 tab(s), SubLingual, q5min, PRN omeprazole 20 mg Cap-DR, 20 mg= 1 cap(s), Oral, Daily ramipril 10 mg Cap, 10 mg= 1 cap(s), Oral, Daily sotalol 120 mg Tab, 120 mg= 1 tab(s), Oral, BID traZODONE (more content not included)... [facility] Comment on above: Result Comment: Elec tronically Signed By: SULTANA GATES, Ross Trejo\Date and Time Signed: 01/26/24 08:05 EDT 04-07-2023 Note [facility] Cardiology Clinic Note Chief Complaint: Patient here for 6 mo follow up CAD, afib, PVD, and hypertension. Had stress test back in Nov 2022. No recent labs or imaging. Denies chest pain. States his ALLISON is better than at last apt in Oct 2022. Palpitations have resolved. HPI: Sharon Pelaez is a 72 y.o. male New patient being seen via telephone call to establish care. He has prior hx of CAD w/ PCI, afib, SVT, CVA, COPD, and DM. He used to see [facility] cardiology in [place]. Then saw Dr. Mattson in [place]. Now going to establish care with [place]. Says his BP averages around 130-140's systolic. Denies chest pain. Has ALLISON with stairs. Has intermittent LE edema. Feels palpitations at times. HPI: From prior records: Sharon Pelaez is a 72 y.o. male gentleman [...] He built a tricycle out of a [place] and sold it 2 weeks after he built it. He now bought a 52 Chevrolet with a short block. He is planning on putting it on a Chevy pickup [employer] with a large block engine. He is also redoing a house in [place] that is 4 stories high and has [...] He reports that (more content not included)... [facility] 11-19-2022 Note CARDIAC STRESS TEST Requesting Physician: Procedure Date:11/19/2022 This was a Lexiscan Stress Test with myocardial perfusion imaging performed at the [facility] on 11/19/2022. Informed consent was obtained. An [...] perfusion images will be reported separately. [facility] 10-30-2022 Note [facility] Cardiology Clinic Note Chief Complaint: New patient being seen via telephone call to establish care. He has prior hx of CAD w/ PCI, afib, SVT, CVA, COPD, and DM. He used to see [facility] cardiology in [place]. Then saw Dr. Mattson in [place]. Now going to establish care with [place]. Says his BP averages around 130-140's systolic. Denies chest pain. Has ALLISON with stairs. Has intermittent LE edema. Feels palpitations at times. HPI: From prior records: Sharon Pelaez is a 72 y.o. male gentleman [...] He built a tricycle out of a [place] and sold it 2 weeks after he built it. He now bought a 52 Chevrolet with a short block. He is planning on putting it on a [employer]vy [employer] with a large block engine. He is also redoing a house in [place] that is 4 stories high and has [...] a past medical history of Angina pectoris ([facility]), CAD (coronary artery disease), CVA (cerebral vascular accident) ([facility]), DM (diabetes mellitus) ([facility]), Glaucoma, Hyperlipidemia, and PVD (peripheral vascular disease) ([facility]). Surgical History He has a past surgical [...] fibrillation CHADS2-VASc 6 (more content not included)... [facility] 09-16-2021 Evaluation note Encounter Date Diagnosis Assessment [...] Patient care instructions given in writting by [facility] Care At Home document. [employer] Other Evaluation + Plan note No data available for this section General Surgery [place] Evaluation note* Diagnosis COVID documented in this encounter [facility] Work Phone: evaluation noteNo assessment information available [facility] Work Phone: History general Narrative - Reported* Type Description Date Medical History DM2 Medical History stroke Medical History a-fib Medical History hypertension Surgical History cataract Surgical History heart stent Hospitalization History [facility] [employer] [facility] Other Hospital Discharge instructions No data available for this section General Surgery [place] note No data available for this section General Surgery [place] Summary Purpose Family History No Family History Records FoundNo Family History Records FoundNo Family History Records FoundNo Family History Records FoundNo Family History Records FoundNo Family History Records FoundNo Family History Records Found No data available for this section No Family History Records FoundNo Family History Records Found Advance Directives No Advanced Directives Records FoundDocuments on File Type Date Recorded Patient 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 Center Operations Manager Expl anation Advance Directives and Living Will Power of Funeral Home Assistant Latest Code Status on File Code Status [...] Documents on File Type Date Recorded Patient Call Center Operations Manager Expl anation ACP-Advance Directive ACP-Power of Funeral Home Assistant Latest Code Status on File Code Status [...] Diet: Diabetic / Low cholesterol Discharge Medication: Sharon Pelaez Home Medication Instructions YENNIFER:[id number] Printed on:05/31/19 0950 Medication Information apixaban (ELIQUIS) 5 MG TABS [...] Follow Up: With your primary care physician (Eusebio Daniels MD) in 2 weeks. 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) Procedures CT HEAD WO CONTRAST HC CTA HEAD W & W/O CONT HC CT BRAIN W/O CONTRAST Castillo Clark MD [address] [place] [address] Dr [address] [place] [address] [facility] [address] Scan [address] [place] [address] Assessments Diagnosis 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) Additional Source Comments (unrecognized sect ion and content) No Status Records FoundNo Status Records FoundNo Status Records FoundNo Status Records FoundNo Status Records FoundNo Status Records FoundNo Status Records FoundNo Status Records FoundNo Status Records Found INFORMATION SOURCE (unrecogn ized section and content) DATE CREATED AUTHOR 03/25/2018 [facility] DATE CREATED AUTHOR AUTHOR'S ORGANIZ ATION 04/13/2018 [facility] DATE CREATED AUTHOR AUTHOR'S ORGANIZ ATION 07/20/2021 [facility] [place] [facility] DATE CREATED AUTHOR AUTHOR'S ORGANIZ ATION 09/20/2021 [facility] [place] [facility] DATE CREATED AUTHOR AUTHOR'S ORGANIZ ATION 11/07/[address] [facility] DATE CREATED AUTHOR AUTHOR'S ORGANIZ ATION 11/28/2022 [facility] DATE CREATED AUTHOR AUTHOR'S ORGANIZ ATION 04/07/2023 [facility] DATE CREATED AUTHOR AUTHOR'S ORGANIZ ATION 01/26/2024 [facility] DATE CREATED AUTHOR AUTHOR'S ORGANIZ ATION 03/16/2024 [facility] Specialists EPIC Reason for Visit (unrecogniz ed section and content) Status Reason Specialty Diagnoses / Procedures Referre d By Contact Referred To Contact Diagnoses SCREENING Procedures SD OFFICE/OUTPT VISIT,PROCEDURE ONLY SD COLONOSCOPY FLX DX W/COLLJ SPEC WHEN PFRMD COLONOSCOPY Back, MD Felix [address] 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 [employer] [facility]. provides no warranty or guarantee of the accuracy or completeness of information in this document.
[2024-03-22 16:42] LABS: Estimated Average Glucose 186 mg/dL; Glycohemoglobin A1C 8.1 % (4.5-6.2)
== END 2024-03-22 15:46 | disposition home or self-care (01) ==
LOC: LAB 15:45
PROVIDERS: PCP Internal Medicine; Visit Provider Internal Medicine
DX: E11.42 Type 2 diabetes mellitus with diabetic polyneuropathy (principal)
CPT/HCPCS: 36415; 83036

== ENCOUNTER 2024-03-27 11:16 | Emergency (ER) | payer OTHER, SELFPAY ==
[2024-03-27 11:21] VITALS: BP 110/69; PULSE 73; TEMP 36.6; BMI 41.7
--- NOTE | 2024-03-27 11:27 | ED.WOUNDLAC1 ---
HPI - Wound/Laceration General Chief Complaint: Wound/Laceration Stated Complaint: LACERATION Time Seen by Provider: 03/27/24 11:27 Source: patient Mode of arrival: walk-in Limitations: no limitations History of Present Illness HPI narrative: Patient here with a laceration to the dorsum of his right hand. He was using a fusion juncture grinder wheel at home when the got away from him since ending the laceration. He cannot remember when his last tetanus shot was. He does not have any paresis paresthesias tingling numbness or decreased motion after the laceration there is no other complaints today he is here with his Related Data Allergies Allergy/AdvReac Type Severity Reaction Status Date / Time No Known Drug Allergies Allergy Verified 03/27/24 11:20 Exam Narrative Exam Narrative: This patient has a clean incisional type laceration over the dorsal aspect of his right hand. It is in the mid hand in the line and proximal to the index finger. There is no bleeding. Neurovascular examination of the hand area is completely normal. Constitutional Vital Signs, click to edit/add: Last Vital Signs Temp 98 F 03/27/24 11:21 Pulse 73 03/27/24 11:21 Resp 20 03/27/24 11:21 BP 110/69 03/27/24 11:21 Course Vital Signs Vital signs: Vital Signs Temperature 98 F 03/27/24 11:21 Pulse Rate 73 03/27/24 11:21 Respiratory Rate 20 03/27/24 11:21 Blood Pressure 110/69 03/27/24 11:21 Temperature 98 F 03/27/24 11:21 Pulse Rate 73 03/27/24 11:21 Respiratory Rate 20 03/27/24 11:21 Blood Pressure 110/69 03/27/24 11:21 MDM - Wound/Laceration MDM Narrative Medical decision making narrative: Procedure note/after lidocaine 1% with epinephrine this wound was thoroughly prepped and draped in usual fashion. Extensor tendon function was evaluated for the index and middle finger and is normal. There is no violation of the tendinous structures. This wound was then closed with 5 simple interrupted sutures 4-0 nylon. Wound length was approximately 3 cm wound care and struck her disc and eat Discharge Plan Discharge Stand Alone Forms: Portal Instructions Chief Complaint: Wound/Laceration Clinical Impression: Laceration, Laceration of right hand Patient Disposition: Home, Self-Care Time of Disposition Decision: 11:45 Print Language: Amharic Additional Instructions: Keep area clean and dry. Stitches out in 10 days. Return for any evidence of infection Referrals: Shaikh Mcnally MD [Primary Care Provider] - 1 week
[2024-03-27] MEDS: ADACEL DIPH,PERTUSS(ACELL),TET VAC/PF 0.5 ML ADULT SYRINGE IM (11:33)
[2024-03-27] MEDS: LIDOCAINE HCL 1%-EPINEPHRINE 1:100,000 20 ML MDV INJ (11:33)
[2024-03-27] MEDS: BACITRACIN 0.9 GM PACKET 1 PACKET TOPICAL (11:33)
--- OUTSIDE RECORDS SUMMARY | 2024-03-27 11:36 | XMS_ITS | CCD ---
Author Organization [facility] Care Team Providers Care Mate Fourth Name Role Phone PHYSICIAN, DEFAULT Unavailable Unavailable PHYSICIAN, DEFAULT Unavailable Unavailable HAKAM, NENA Unavailable Unavailable HAKAM, NENA Unavailable Unavailable ENRIQUETA, LESLI Unavailable Unavailable MICHELLE, AMEER Unavailable Unavailable RAMIREZ, HOSSAMELDIN I Unavailable Unavailab le ENRIQUETA LESLI Unavailable Unavailable RAMIREZ, HOSSAMELDIN I Unavailable Unavailab le RAMIREZ, HOSSAMELDIN I Unavailable Unavailab Eusebio Marrero Primary Care Provider Eusebio Daniels MD Primary Care Provider EUSEBIO DANIELS Primary Care Unavailable EUSEBIO DANIELS Referring Unavailable EUSEBIO DANIELS Primary Care Unavailable EUSEBIO DANIELS Referring Unavailable EUSEBIO DANIELS Primary Care Unavailable Pat Jesus Unavailable MD Indigo Mcnally Attending Provider Shaikh Mcnally Attending Unavailable Shaikh Mcnally Admitting Unavailable MISDR MP Silva Primary Care Unavailable CANDELARIO HERMOSILLO Admitting Unavailable [...] Attending Unavailable Kate Cabrera Primary Care Physician SHAIKH MCNALLY Referring Unavailable Ross WEINBERG Attending Unavailable SHAIKH MCNALLY Attending Unavailable SHAIKH MCNALLY Attending Unavailable SHAIKH MCNALLY Attending Unavailable SHAIKH MCNALLY Attending Unavailable Allergies Allergy Classification Reported Allergen(s) Allergy Type Date of Onset Reaction(s) Facility (1 source) No Known Medication Allergies; Translations: [No Known Medication Allergies] Propensity to adverse reactions (disorder) [facility] Repository Medications Current Medications Medication [...] hyperglycemia, without long-term current use of insulin ([facility]) TAKE 1 TABLET BY MOUTH EVERY DAY BEFORE BREAKFAST 90 tablet 1 03/15/2021 Active Start: 08-24-2019 take 1 tablet by hector th once daily before breakfast glimepiride (AMARYL) 2 MG tablet Indications: Controlled type 2 diabetes mellitus with hyperglycemia, without long-term current use of insulin ([facility]) Take 1 tablet by mouth every morning (before breakfast) 30 tablet 5 08/24/2019 Active Start: 04-01-2019 take 1 tablet by hector th once daily before breakfast glimepiride (AMARYL) 2 MG tablet Indications: Controlled type 2 diabetes mellitus with hyperglycemia, without long-term current use of insulin (HCC) Take 1 tablet by mouth every morning [...] hyperglycemia, without long-term current use of insulin ([facility]) TAKE 1 TABLET BY MOUTH TWICE A DAY WITH MEALS 180 tablet 1 02/09/2021 Active Start: 09-27-2019 take 1 tablet by hector th twice daily at mealtime metFORMIN (GLUCOPHAGE) 1000 MG tablet Indications: Controlled type 2 diabetes mellitus with hyperglycemia, without long-term current use of insulin ([facility]) Take 1 tablet by mouth 2 times daily (with meals) 60 tablet 5 09/27/2019 Active Start: 04-01-2019 take 1 tablet by hector th twice daily at mealtime metFORMIN (GLUCOPHAGE) 1000 MG tablet Indications: Controlled type 2 diabetes mellitus with hyperglycemia, without long-term current use of insulin ([facility]) Take 1 tablet by mouth 2 times [...] Coronary arteriosclerosis; Translations: [Atherosclerotic heart disease of 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 00TIFF [facility] Ambulatory Visit Summaryon 0 01-20-2024 Ambulatory Visit [...] for choosing us for your care. Normal [facility] Reminderson 01-20-2024 Reminders - From: Day Machado LPN To: N - Clinical; Sent: 01/20/2024 16:21:49 EDT Show up: 05/06/2029 07:00:00 EDT Subject: colonoscopy recall Due Date/Time: 05/31/2029 07:00:00 EDT Reminder/Recall Patient due for screening colonoscopy 05/2029. Normal [facility] Physician Referralon 024 Physician Referral [id number] .[id number] Normal [facility] Office Visiton 04-07-2023 Follow-up visit [id number] Sharon Pelaez W 1950 M Date Provider Department Center 04/07/2023 271-CHALO TOVAR CARD [facility] Family History Problem Relation Age of Onset Coronary artery disease Maternal Grandmother Coronary artery disease Maternal Grandfather Cerebral aneurysm Paternal Grandmother Family Status - Relation Status Age at Maternal Grandmother Maternal Grandfather Paternal Grandmother Level of Service:00469 OR OFFICE/OUTPATIENT ESTABLISHED MOD MDM 30-39 MIN Normal [facility] NM STRESS/REST MULTIon 11-19 NM STRESS/REST MULTI Patient: SHARON PELAEZ Exam Date: 11/19/2022 : 1950 Gender:M Ordering : DR CHALO TOVAR M.D. Admission #: [id number] Family : Order #: [id number] CLICK HERE TO VIEW EXAM RADIOLOGY REPORT [...] Cotter M.D. on 11/27/2022 at 15:[address] [facility] Telemedicineon 10-30-2022 Telemedicine [id number] Sharon Pelaez 1950 M Date Provider Department Center 10/30/2022 [facility]-CHALO TOVAR [facility] Family History Problem Relation Age of Onset Coronary artery disease Maternal Grandmother Coronary artery disease Maternal Grandfather Cerebral aneurysm Paternal Grandmother Family Status - Relation Status Age at Maternal Grandmother Maternal Grandfather Paternal Grandmother Level of Service:61371 OR OFFICE/OUTPATIENT [facility] 15-29 MINUTES Reason for Visit and Comments: Coronary Artery Disease [187] Atrial Fibrillation [80] Normal [facility] A1C with Estimated Average G narciso 10-29-2022 Glucose [Mass/Vol] 169 mg/dL Normal [facility] Comment on above: Result Comment: PERF ORMED BY: [facility] [address] [place] [address] PATHOLOGIST ASSISTANT PARALEGAL WINTER RODRIGUEZ M.D. Performed By: #### U RMACRERAT, CBC, A1C WTH eA, LIPID, CMP #### [facility] [address] [place] [address] [place] HbA1c (Bld) [Mass fraction] 7.5 % High 4.3-5.6 [facility] Comment on above: Result Comment: Incr eased risk for diabetes: 5.7 - 6.4 diabetes: >6.4 glycemic control for adults with diabetes: <7.0 Performed By: #### U RMACRERAT, CBC, A1C WTH eA, LIPID, CMP #### [facility] [address] [place] [id number] [place] Albumin [Mass/volume] in Ser um or PlasmaOrdered By: Shaikh Dali on 10-29-2022 Albumin [Mass/Vol] 3.8 g/dL 3.2-5.5 [facility] Basophils Auto (Bld) [#/Vol] Ordered By: Shaikh Dali on 10-29-2022 Basophils (Bld) [#/Vol] 0.1 10*3/uL 0.0-0.2 [facility] Basophils/100 WBC Auto (Bld) Ordered By: Shaikh Dali on 10-29-2022 Basophils/100 WBC (Bld) 0.7 % . [facility] Cholesterol [Mass/volume] in Serum or PlasmaOrdered By: Shaikh Dali on 10-29-2022 Cholesterol [Mass/Vol] 147 mg/dL 140-200 [facility] Comment on above: Chol less than 200 m g/dl low riskChol 201-239 mg/dl borderline riskChol 240 mg/dl and greater high risk Cholesterol in LDL Calc [Mas s/Vol]Ordered By: Shaikh Dali on 10-29-2022 Cholesterol in LDL [Mass/Vol] 62 mg/dL 0-100 [facility] Comment on above: LDL ATP III CLASSIFI CATIONLDL less than 100 mg/dL OptimalLDL 100-129 mg/dL Near or above optimalLDL 130-159 mg/dL Borderline highLDL 160-189 mg/dL HighLDL greater than 189 mg/dL Very high Cholesterol in VLDL Calc [Ma ss/Vol]Ordered By: Shaikh Dali on 10-29-2022 Cholesterol in VLDL [Mass/Vol] 57 mg/dL [facility] Complete Blood Count Auto Di ffon 10-29-2022 Basophils (Bld) [#/Vol] 0.1 10*3/uL Normal 0.0-0.2 [facility] Comment on above: Result Comment: PERF ORMED BY: [place] [address] PATHOLOGIST ASSISTANT PARALEGAL WINTER RODRIGUEZ M.D. Performed By: #### U RMACRERAT, CBC, A1C WTH eA, LIPID, CMP #### [facility] [address] [place] [address] Basophils/100 WBC (Bld) 0.7 % Normal . [facility] Comment on above: Performed By: #### U RMACRERAT, CBC, A1C WTH eA, LIPID, CMP #### [facility] [address] [place] [address] Eosinophils (Bld) [#/Vol] 0.5 10*3/uL High 0.0-0.45 [facility] Comment on above: Performed By: #### U RMACRERAT, CBC, A1C WTH eA, LIPID, CMP #### [address] Eosinophils/100 WBC (Bld) 5.3 % Normal . [facility] Comment on above: Performed By: #### U RMACRERAT, CBC, A1C WTH eA, LIPID, CMP #### [facility] [address] [place] [address] Erythrocyte distribution width (RBC) [Ratio] 13.7 % Normal 12.0-14.8 [facility] Comment on above: Performed By: #### U RMACRERAT, CBC, A1C WTH eA, LIPID, CMP #### [address] Hematocrit (Bld) [Volume fraction] 44.8 % Normal 38.8-50.0 [facility] Comment on above: Performed By: #### U RMACRERAT, CBC, A1C WTH eA, LIPID, CMP #### [facility] [address] Hemoglobin (Bld) [Mass/Vol] 14.5 g/dL Normal 13.0-17.0 [facility] Comment on above: Performed By: #### U RMACRERAT, CBC, A1C WTH eA, LIPID, CMP #### [facility] [address] Lymphocytes (Bld) [#/Vol] 2.1 10*3/uL Normal 1.00-4.8 [facility] Comment on above: Performed By: #### U RMACRERAT, CBC, A1C WTH eA, LIPID, CMP #### [address] Lymphocytes/100 WBC (Bld) 21.4 % Normal . [facility] Comment on above: Performed By: #### U RMACRERAT, CBC, A1C WTH eA, LIPID, CMP #### [address] MCH (RBC) [Entitic mass] 27.5 pg Normal 27.5-35.2 [facility] Comment on above: Performed By: #### U RMACRERAT, CBC, A1C WTH eA, LIPID, CMP #### [address] MCV (RBC) [Entitic vol] 84.7 fL Normal 83.5-101 F [facility] Comment on above: Performed By: #### U RMACRERAT, CBC, A1C WTH eA, LIPID, CMP #### [address] Mean Corpuscular HGB Conc 32.5 g/dL Normal 32.5-35.6 [facility] Comment on above: Performed By: #### U RMACRERAT, CBC, A1C WTH eA, LIPID, CMP #### [address] Monocytes (Bld) [#/Vol] 0.7 10*3/uL Normal 0.0-0.8 [facility] Comment on above: Performed By: #### U RMACRERAT, CBC, A1C WTH eA, LIPID, CMP #### [facility] [address] [place] [address] [place] Monocytes/100 WBC (Bld) 7.2 % Normal . [facility] Comment on above: Performed By: #### U RMACRERAT, CBC, A1C WTH eA, LIPID, CMP #### [facility] [address] Neutrophils (Bld) [#/Vol] 6.4 10*3/uL Normal 1.8-7.7 [facility] Comment on above: Performed By: #### U RMACRERAT, CBC, A1C WTH eA, LIPID, CMP #### [facility] [address] Neutrophils/100 WBC (Bld) 65.4 % Normal . [facility] Comment on above: Performed By: #### U RMACRERAT, CBC, A1C WTH eA, LIPID, CMP #### [facility] [address] NRBC% 0.2 /100{WBC} Normal 0-0.5 [facility] Comment on above: Performed By: #### U RMACRERAT, CBC, A1C WTH eA, LIPID, CMP #### [facility] [address] Platelet mean volume (Bld) [Entitic vol] 10.2 fL High 6.6-10.1 [facility] Comment on above: Performed By: #### U RMACRERAT, CBC, A1C WTH eA, LIPID, CMP #### [facility] [address] [place] [address] [place] Platelets (Bld) [#/Vol] 235 10*3/uL Normal 150-450 [facility] Comment on above: Performed By: #### U RMACRERAT, CBC, A1C WTH eA, LIPID, CMP #### [facility] [address] [place] [address] [place] RBC (Bld) [#/Vol] 5.28 10*6/uL Normal 3.90-5.60 [facility] Comment on above: Performed By: #### U RMACRERAT, CBC, A1C WTH eA, LIPID, CMP #### [facility] [address] WBC (Bld) [#/Vol] 9.8 10*3/uL Normal 4.1-10.5 [facility] Comment on above: Performed By: #### U RMACRERAT, CBC, A1C WTH eA, LIPID, CMP #### [facility] [address] Comprehensive Metabolic Pane concha 10-29-2022 Albumin [Mass/Vol] 3.8 g/dL Normal 3.2-5.5 [facility] Comment on above: Performed By: #### U RMACRERAT, CBC, A1C WTH eA, LIPID, CMP #### [facility] [address] [place] [address] Albumin/Globulin [Mass ratio] 1.3 {ratio} Normal [facility] Comment on above: Performed By: #### U RMACRERAT, CBC, A1C WTH eA, LIPID, CMP #### [address] ALP [Catalytic activity/Vol] 73 U/L Normal 32-92 [facility] Comment on above: Performed By: #### U RMACRERAT, CBC, A1C WTH eA, LIPID, CMP #### [address] ALT [Catalytic activity/Vol] 42 U/L Normal 10-60 [facility] Comment on above: Performed By: #### U RMACRERAT, CBC, A1C WTH eA, LIPID, CMP #### [facility] [address] [place] [address] Anion gap [Moles/Vol] 14.2 mmol/L Normal 6.0-15.0 [facility] Comment on above: Performed By: #### U RMACRERAT, CBC, A1C WTH eA, LIPID, CMP #### [facility] [address] [place] [address] [place] AST [Catalytic activity/Vol] 53 U/L High 10-42 [facility] Comment on above: Performed By: #### U RMACRERAT, CBC, A1C WTH eA, LIPID, CMP #### [facility] [address] [place] [address] [place] Bilirubin [Mass/Vol] 0.6 mg/dL Normal 0.3-1.2 [facility] Comment on above: Performed By: #### U RMACRERAT, CBC, A1C WTH eA, LIPID, CMP #### [facility] [address] Calcium [Mass/Vol] 9.2 mg/dL Normal 8.2-10.2 [facility] Comment on above: Performed By: #### U RMACRERAT, CBC, A1C WTH eA, LIPID, CMP #### [facility] [address] Chloride [Moles/Vol] 99 mmol/L Normal 95-114 [facility] Comment on above: Performed By: #### U RMACRERAT, CBC, A1C WTH eA, LIPID, CMP #### [facility] [address] CO2 [Moles/Vol] 27.4 mmol/L Normal 22.0-30.0 [facility] Comment on above: Performed By: #### U RMACRERAT, CBC, A1C WTH eA, LIPID, CMP #### [facility] [address] [place] [address] [place] Creatinine [Mass/Vol] 1.00 mg/dL Normal 0.64-1.27 [facility] Comment on above: Performed By: #### U RMACRERAT, CBC, A1C WTH eA, LIPID, CMP #### [facility] [address] [place] [address] [place] Estimated GFR ( Felipa > 60 Normal [facility] Comment on above: Result Comment: GFR estimated reference range: According to KDOQI guidelines, <60 ml/min/1.73m2 is sufficient to diagnose a patient with chronic kidney disease. Performed By: #### U RMACRERAT, CBC, A1C WTH eA, LIPID, CMP #### [facility] [address] Estimated GFR (Non- Am > 60 Normal [facility] Comment on above: Performed By: #### U RMACRERAT, CBC, A1C WTH eA, LIPID, CMP #### [facility] [address] Globulin (S) [Mass/Vol] 2.9 g/dL Normal [facility] Comment on above: Performed By: #### U RMACRERAT, CBC, A1C WTH eA, LIPID, CMP #### [facility] [address] Glucose [Mass/Vol] 145 mg/dL High 70-100 [facility] Comment on above: Result Comment: [facility] Glucose Reference Range is dependent on time and content of last meal. Glucose of more than 200 mg/dL in a nonstressed, ambulatory subject supports the diagnosis of Diabetes Mellitus. ADA recommended reference range Performed By: #### U RMACRERAT, CBC, A1C WTH eA, LIPID, CMP #### [address] Potassium [Moles/Vol] 4.6 mmol/L Normal 3.5-5.1 [facility] Comment on above: Performed By: #### U RMACRERAT, CBC, A1C WTH eA, LIPID, CMP #### [facility] [address] Protein [Mass/Vol] 6.7 g/dL Normal 6.1-7.9 [facility] Comment on above: Performed By: #### U RMACRERAT, CBC, A1C WTH eA, LIPID, CMP #### [address] Sodium [Moles/Vol] 136 mmol/L Normal 136-146 [facility] Comment on above: Performed By: #### U RMACRERAT, CBC, A1C WTH eA, LIPID, CMP #### [facility] [address] [place] [id number] [place] Urea nitrogen [Mass/Vol] 15 mg/dL Normal 9- [facility] Comment on above: Performed By: #### U RMACRERAT, CBC, A1C WT eA, LIPID, CMP #### [facility] [address] [place] [id number] [place] Creatinine [Mass/volume] in UrineOrdered By: Shaikh Dali on 10-29-2022 Creatinine (U) [Mass/Vol] 166.9 mg/dL [facility] Comment on above: No reference range e stablished Creatinine and Glomerular fi ltration rate.predicted panel (S/P/Bld)Ordered By: Shaikh Dali on 10-29-2022 Creatinine [Mass/Vol] 1.00 mg/dL 0.64-1.27 [facility] Eosinophils Auto (Bld) [#/Vo l]Ordered By: Shaikh Dali on 10-29-2022 Eosinophils (Bld) [#/Vol] 0.5 10*3/uL 0.0-0.45 [facility] Eosinophils/100 WBC Auto (Bl d)Ordered By: Shaikh Dali on 10-29-2022 Eosinophils/100 WBC (Bld) 5.3 % . [facility] Erythrocyte distribution wid th Auto (RBC) [Ratio]Ordered By: Shaikh Dali on 10-29-2022 Erythrocyte distribution width (RBC) [Ratio] 13.7 % 12.0-14.8 [facility] Estimated glomerular filtrat ion rate (GFR) non- AmericanOrdered By: Shaikh Dali on 10-29-2022 GFR/1.73 sq M.predicted among non-blacks MDRD (S/P/Bld) [Vol rate/Area] > 60 mL/Min [facility] Globulin Calc (S) [Mass/Vol] Ordered By: Shaikh Dali on 10-29-2022 Globulin (S) [Mass/Vol] 2.9 g/dL F [facility] Glucose mean value [Mass/vol ume] in Blood Estimated from glycated hemoglobinOrdered By: Shaikh Dali on 10-29-2022 Average glucose Estimated from glycated hemoglobin (Bld) [Mass/Vol] 169 mg/dL [facility] Hematocrit Auto (Bld) [Volum e fraction]Ordered By: Shaikh Dali on 10-29-2022 Hematocrit (Bld) [Volume fraction] 44.8 % 38.8-50.0 [facility] Hemoglobin A1c percentageOrd ered By: Shaikh Dali on 10-29-2022 HbA1c (Bld) [Mass fraction] 7.5 % 4.3-5.6 [facility] Comment on above: Increased risk for d iabetes: 5.7 - 6.4diabetes: >6.4glycemic control for adults with diabetes: <7.0 Hemoglobin [Mass/volume] in BloodOrdered By: Shaikh Dali on 10-29-2022 Hemoglobin (Bld) [Mass/Vol] 14.5 g/dL 13.0-17.0 [facility] Leukocytes [#/volume] correc wiley for nucleated erythrocytes in Blood by Automated counOrdered By: Shaikh Dali on 10-29-2022 WBC corrected for nucl RBC Auto (Bld) [#/Vol] 9.8 10*3/uL 4.1-10.5 [facility] Lipid Panelon 10-29-2022 Cholesterol [Mass/Vol] 147 mg/dL Normal 140-200 [facility] Comment on above: Result Comment: Chol less than 200 mg/dl low risk Chol 201-239 mg/dl borderline risk Chol 240 mg/dl and greater high risk Performed By: #### U RMACRERAT, CBC, A1C WTH eA, LIPID, CMP #### [facility] [address] Cholesterol in HDL [Mass/Vol] 28 mg/dL Low 29-71 [facility] Comment on above: Result Comment: HDL CHOL ATP-III CLASSIFICATION Cardiovascular Risk HDL > or equal to 60 mg/dL LOW HDL < 40 mg/dL HIGH Performed By: #### U RMACRERAT, CBC, A1C WTH eA, LIPID, CMP #### [facility] [address] Cholesterol.total/Apple sterol in HDL [Mass ratio] 5.3 {ratio} Normal <5.0 [facility] Comment on above: Result Comment: PERF ORMED BY: [place] [address] PATHOLOGIST ASSISTANT PARALEGAL WINTER RODRIGUEZ M.D. Performed By: #### U RMACRERAT, CBC, A1C WTH eA, LIPID, CMP #### [facility] [address] LDL Cholesterol,Calculated 62 mg/dL Normal 0-100 [facility] Comment on above: Result Comment: LDL ATP III CLASSIFICATION LDL less than 100 mg/dL Optimal LDL 100-129 mg/dL Near or above optimal LDL 130-159 mg/dL Borderline high LDL 160-189 mg/dL High LDL greater than 189 mg/dL Very high Performed By: #### U RMACRERAT, CBC, A1C WTH eA, LIPID, CMP #### [facility] [address] Triglyceride w/Reflex 285 mg/dL High 35-149 [facility] Comment on above: Result Comment: TRIG ATP III CLASSIFICATION TRIG less than 150 mg/dL Normal TRIG 150-199 mg/dL Borderline high TRIG 200-500 mg/dL High TRIG greater than 500 mg/dL Very high Standard traceable to the Center for Disease Conrtrol and Prevention (CDC) test method. Performed By: #### U RMACRERAT, CBC, A1C WTH eA, LIPID, CMP #### [facility] [address] VLDL CHOLESTEROL 57 mg/dL Normal [facility] Comment on above: Performed By: #### U RMACRERAT, CBC, A1C WTH eA, LIPID, CMP #### [facility] [address] Lymphocytes Auto (Bld) [#/Vo l]Ordered By: Shaikh Dali on 10-29-2022 Lymphocytes (Bld) [#/Vol] 2.1 10*3/uL 1.00-4.8 [facility] Lymphocytes/100 WBC Auto (Bl d)Ordered By: Shaikh Dali on 10-29-2022 Lymphocytes/100 WBC (Bld) 21.4 % . [facility] MCH Auto (RBC) [Entitic mass ]Ordered By: Shaikh Dali on 10-29-2022 MCH (RBC) [Entitic mass] 27.5 pg 27.5-35.2 [facility] MCHC Auto (RBC) [Mass/Vol]Or dered By: Shaikh Dali on 10-29-2022 MCHC (RBC) [Mass/Vol] 32.5 g/dL 32.5-35.6 Fir [facility] MCV Auto (RBC) [Entitic vol] Ordered By: Shaikh Dali on 10-29-2022 MCV (RBC) [Entitic vol] 84.7 fL 83.5-101 F [facility] MicroAlb Creat Ratio,Uon Albumin DL <= 20 mg/L (U) [Mass/Vol] 18.7 mg/dL High 0.0-1.8 [facility] Comment on above: Performed By: #### U RMACRERAT, CBC, A1C WTH eA, LIPID, CMP #### [facility] [address] Creatinine, Urine (Random) 166.9 mg/dL Normal [facility] Comment on above: Result Comment: No r eference range established Performed By: #### U RMACRERAT, CBC, A1C WTH eA, LIPID, CMP #### [facility] [address] Microalbumin/Creatinine Ratio 112.0 mg/g High 0.0-30.0 [facility] Comment on above: Result Comment: 30-3 00 mg/g indicates an increased risk for diabetic nephropathy. Greater than 300 mg/g is consistent with clinical nephropathy. (Am. J. Kidney Disease 1995, 25:107) PERFORMED BY: [place] [address] PATHOLOGIST ASSISTANT PARALEGAL WINTER RODRIGUEZ M.D. Performed By: #### U RMACRERAT, CBC, A1C WTH eA, LIPID, CMP #### [facility] [address] Monocytes Auto (Bld) [#/Vol] Ordered By: Shaikh Dali on 10-29-2022 Monocytes (Bld) [#/Vol] 0.7 10*3/uL 0.0-0.8 [facility] Monocytes/100 WBC Auto (Bld) Ordered By: Shaikh Dali on 10-29-2022 Monocytes/100 WBC (Bld) 7.2 % . [facility] Neutrophils Auto (Bld) [#/Vo l]Ordered By: Shaikh Dali on 10-29-2022 Neutrophils (Bld) [#/Vol] 6.4 10*3/uL 1.8-7.7 [facility] Neutrophils/100 WBC Auto (Bl d)Ordered By: Shaikh Dali on 10-29-2022 Neutrophils/100 WBC (Bld) 65.4 % . [facility] No Panel InformationOrdered By: Shaikh Dali on 10-29-2022 Estimated GFR () > 60 mL/Min [facility] Comment on above: GFR estimated refere nce range: According to KDOQI guidelines, <60 ml/min/1.73m2 is sufficient to diagnose a patient with chronic kidney disease. Pharmacy Creatinine Clearance (Chem N/A [facility] Nucleated erythrocytes [Pres ence] in Blood by Automated countOrdered By: Shaikh Dali on 10-29-2022 Nucleated RBC Auto Ql (Bld) 0.2 /100{WBC} 0-0.5 [facility] Platelet mean volume Auto (B ld) [Entitic vol]Ordered By: Shaikh Dali on 10-29-2022 Platelet mean volume (Bld) [Entitic vol] 10.2 fL 6.6-10.1 [facility] Platelets Auto (Bld) [#/Vol] Ordered By: Shaikh Dali on 10-29-2022 Platelets (Bld) [#/Vol] 235 10*3/uL 150-450 [facility] Protein [Mass/volume] in Ser um or PlasmaOrdered By: Shaikh Dali on 10-29-2022 Protein [Mass/Vol] 6.7 g/dL 6.1-7.9 [facility] RBC Auto (Bld) [#/Vol]Ordere d By: Shaikh Dali on 10-29-2022 RBC (Bld) [#/Vol] 5.28 10*6/uL 3.90-5.60 [facility] Serum or plasma alanine azevedo otransferase measurement without P-5'-P (enzymatic activiOrdered By: Shaikh Dali on 10-29-2022 ALT No additional P-5'-P [Catalytic activity/Vol] 42 U/L 60 [facility] Serum or plasma albumin/glob ulin mass ratioOrdered By: Shaikh Dali on 10-29-2022 Albumin/Globulin [Mass ratio] 1.3 {ratio} [facility] Serum or plasma alkaline julia sphatase measurement (enzymatic activity/volume)Ordered By: Shaikh Dali on 10-29-2022 ALP [Catalytic activity/Vol] 73 U/L 32-92 [facility] Serum or plasma anion gap de terminationOrdered By: Shaikh Dali on 10-29-2022 Anion gap [Moles/Vol] 14.2 mmol/L 6.0-15.0 [facility] Serum or plasma aspartate am inotransferase measurement (enzymatic activity/volume)Ordered By: Shaikh Dali on 10-29-2022 AST [Catalytic activity/Vol] 53 U/L [facility] Serum or plasma calcium david urement (mass/volume)Ordered By: Shaikh Dali on 10-29-2022 Calcium [Mass/Vol] 9.2 mg/dL 8.2-10.2 [facility] Serum or plasma chloride traci surement (moles/volume)Ordered By: Shaikh Dali on 10-29-2022 Chloride [Moles/Vol] 99 mmol/L 95-114 [facility] Serum or plasma glucose david urement (mass/volume)Ordered By: Shaikh Dali on 10-29-2022 Glucose [Mass/Vol] 145 mg/dL 70-100 [facility] Comment on above: ADA recommended refe rence rangeRandom Glucose Reference Range is dependent on time and content of last meal. Glucose of more than 200 mg/dL in a nonstressed, ambulatory subject supports the diagnosis of Diabetes Mellitus. Serum or plasma high density lipoprotein (HDL) cholesterol measurementOrdered By: Shaikh Dali on 10-29-2022 Cholesterol in HDL [Mass/Vol] 28 mg/dL - [facility] Comment on above: HDL CHOL ATP-III CLA SSIFICATION Cardiovascular RiskHDL > or equal to 60 mg/dL LOWHDL < 40 mg/dL HIGH Serum or plasma potassium me asurement (moles/volume)Ordered By: Shaikh Dali on 10-29-2022 Potassium [Moles/Vol] 4.6 mmol/L 3.5-5.1 [facility] Serum or plasma sodium measu rement (moles/volume)Ordered By: Shaikh Dali on 10-29-2022 Sodium [Moles/Vol] 136 mmol/L 136-146 [facility] Serum or plasma total biliru bin measurement (mass/volume)Ordered By: Shaikh Dali on 10-29-2022 Bilirubin [Mass/Vol] 0.6 mg/dL 0.3-1.2 [facility] Serum or plasma total carbon dioxide measurement (moles/volume)Ordered By: Shaikh Dali on 10-29-2022 CO2 [Moles/Vol] 27.4 mmol/L 22.0-30.0 [facility] Serum or plasma total choles terol/high density lipoprotein (HDL) cholesterol mass ratOrdered By: Shaikh Dali on 10-29-2022 Cholesterol.total/Apple sterol in HDL [Mass ratio] 5.3 {ratio} <5.0 [facility] Serum or plasma urea nitroge n measurement (mass/volume)Ordered By: Shaikh Dali on 10-29-2022 Urea nitrogen [Mass/Vol] 15 mg/dL 06-28 [facility] Triglyceride [Mass/volume] i n Serum or PlasmaOrdered By: Shaikh Dali on 10-29-2022 Triglyceride [Mass/Vol] 285 mg/dL 35-149 [facility] Comment on above: TRIG ATP III [...] 20 mg/L (U) [Mass/Vol] 18.7 mg/dL 0.0-1.8 [facility] Urine microalbumin/creatinin e mass ratioOrdered By: Shaikh Dali on 10-29-2022 Albumin/Creatinine DL <= 20 mg/L (U) [Mass ratio] 112.0 mg/g 0.0-30.0 [facility] Comment on above: 30-300 mg/g indicate s an increased risk for diabetic nephropathy. Greater than 300 mg/g is consistent with clinical nephropathy. (Am. J. Kidney Disease 1995, 25:107) WBC Auto (Bld) [#/Vol]Ordere d By: Shaikh Dali on 10-29-2022 WBC (Bld) [#/Vol] 9.8 10*3/uL 4.1-10.5 [facility] CARDIAC SARAH ADMITon 022 CK [Catalytic activity/Vol] 100 U/L Normal 39-308 [facility] Comment on above: Performed By: #### C PENNY, CMP #### [facility] [address] [place], [place] [address] Dr. Tracy Gutierrez CK.MB [Mass/Vol] 1.18 ng/mL Normal <=3.60 [facility] Comment on above: Performed By: #### C MADM, CMP #### [facility] [address] [place], [place] [address] Dr. Tracy Gutierrez HSTROP 11.3 pg/mL Normal 4.0-76.1 [facility] Comment on above: Result Comment: CUT- OFF POINTS HAVE BEEN ESTABLISHED BASED ON THE FOURTH UNIVERSAL DEFINITIONS OF MYOCARDIAL INFARCTION. THE UPPER REFERENCE LIMIT (URL) OF TROPONIN, DEFINED THE 99TH PERCENTILE OF cTnI DISTRIBUTION IN A REFERENCE POPULATION, HAS BEEN CONFIRMED THE DECISION THRESHOLD FOR KS DIAGNOSIS. Performed By: #### C RICKIEM, CMP #### [facility] [address] [place] [address] Dr. Tracy Gutierrez ERIN 60 ng/mL Normal 16-96 [facility] Comment on above: Performed By: #### C MADM, CMP #### [facility] [address] [place] [address] Dr. Tracy Gutierrez CBC AUTO DIFFon 05-02-2022 BASO # 0.1 103/ul Normal 0.0-0.1 [facility] Comment on above: Performed By: #### C BC #### [facility] [address] [place] [address] Dr. Tracy Gutierrez Basophils/100 WBC (Bld) 0.6 % Normal 0.2-2.0 [facility] Comment on above: Performed By: #### C BC #### [facility] [address] [place] [address] Dr. Tracy Gutierrez EO # 0.4 103/ul Normal 0.0-0.7 [facility] Comment on above: Performed By: #### C BC #### [facility] [address] [place] [address] Dr. Tracy Gutierrez Eosinophils/100 WBC (Bld) 4.1 % Normal 0.9-7.0 [facility] Comment on above: Performed By: #### C BC #### [facility] [address] [place] [address] Dr. Tracy Gutierrez Erythrocyte distribution width (RBC) [Ratio] 12.7 % Normal 11.0-15.0 [facility] Comment on above: Performed By: #### C BC #### [facility] [address] [place] [address] Dr. Tracy Gutierrez Hematocrit (Bld) [Volume fraction] 44.9 % Normal 42.0-54.0 [facility] Comment on above: Performed By: #### C BC #### [facility] [address] [place] [address] [address] Tracy Gutierrez Hemoglobin (Bld) [Mass/Vol] 14.5 g/dL Normal 14.0-18.0 [facility] Comment on above: Performed By: #### C BC #### [facility] [address] [place] [address] [address] Tracy Gutierrez IG # 0.04 10e3/ul Critically high 0.00-0.03 [facility] Comment on above: Performed By: #### C BC #### [facility] [address] [place] [address] [address] Tracy Gutierrez IG % 0.4 % Normal 0.0-0.5 [facility] Comment on above: Performed By: #### C BC #### [facility] [address] [place] [address] Dr. Tracy Gutierrez LYMPH # 2.1 103/ul Normal 1.2-3.8 [facility] Comment on above: Performed By: #### C BC #### [facility] [address] [place] [address] Dr. Tracy Gutierrez Lymphocytes/100 WBC (Bld) 20.8 % Normal 20.5-60.0 [facility] Comment on above: Performed By: #### C BC #### [facility] [address] [place] [address] Dr. Tracy Gutierrez MANUAL DIFF REQ NO Normal [facility] Comment on above: Performed By: #### C BC #### [facility] [address] [place] [address] Dr. Tracy Gutierrez MCH (RBC) [Entitic mass] 27.9 pg Normal 25.9-34.0 [facility] Comment on above: Performed By: #### C BC #### [facility] [address] [place] [address] [address] Tracy Gutierrez MCHC (RBC) [Mass/Vol] 32.3 g/dL Normal 29.9-35.2 [facility] Comment on above: Performed By: #### C BC #### [facility] [address] [place] [address] [address] Tracy Gutierrez MCV (RBC) [Entitic vol] 86.3 fL Normal 80.0-94.0 [facility] Comment on above: Performed By: #### C BC #### [facility] [address] [place] [address] [address] Tracy Gutierrez MONO # 0.7 103/ul Normal 0.3-0.8 [facility] Comment on above: Performed By: #### C BC #### [facility] [address] [place] [address] [address] Tracy Gutierrez Monocytes/100 WBC (Bld) 7.2 % Normal 1.7-12.0 [facility] Comment on above: Performed By: #### C BC #### [facility] [address] [place] [address] Dr. Tracy Gutierrez NEUT # 6.9 103/ul Critically high 1.4-6.5 [facility] Comment on above: Performed By: #### C BC #### [facility] [address] [place] [address] Dr. Tracy Gutierrez Neutrophils/100 WBC (Bld) 66.9 % Normal 43.0-75.0 [facility] Comment on above: Performed By: #### C BC #### [facility] [address] [place] [address] Dr. Tracy Gutierrez Platelet mean volume (Bld) [Entitic vol] 11.1 fL Normal 9.5-13.5 [facility] Comment on above: Performed By: #### C BC #### [facility] [address] [place] [address] Dr. Tracy Gutierrez PLT 237 103/ul Normal 150-450 [facility] Comment on above: Performed By: #### C BC #### [facility] [address] [place] [address] Dr. Tracy Gutierrez RBC 5.20 106/ul Normal 4.70-6.10 [facility] Comment on above: Performed By: #### C BC #### [facility] [address] [place] [address] [address] Tracy Gutierrez WBC 10.3 103/ul Normal 4.0-11.0 [facility] Comment on above: Performed By: #### C BC #### [facility] [address] [place] [address] [address] Tracy Gutierrez PROF 14(COMP METB)on 022 Albumin [Mass/Vol] 3.7 g/dL Normal 3.4-5.0 [facility] Comment on above: Performed By: #### C RICKIEM, CMP #### [facility] [address] [place] [address] [address] Tracy Gutierrez Albumin/Globulin [Mass ratio] 0.9 {ratio} Normal [facility] Comment on above: Performed By: #### C RICKIEM, CMP #### [facility] [address] [place] [address] Dr. Tracy Gutierrez ALP [Catalytic activity/Vol] 77 U/L Normal 46-116 [facility] Comment on above: Performed By: #### C RICKIEM, CMP #### [facility] [address] [place] [address] Dr. Tracy Gutierrez ALT [Catalytic activity/Vol] 46 U/L Normal 16-63 [facility] Comment on above: Performed By: #### C RICKIEM, CMP #### [facility] [address] [place] [address] Dr. Tracy Gutierrez Anion gap [Moles/Vol] 10.7 mmol/L Normal [facility] Comment on above: Performed By: #### C MADM, CMP #### [facility] [address] [place] [address] Dr. Tracy Gutierrez AST [Catalytic activity/Vol] 40 U/L Critically high 15-37 [facility] Comment on above: Performed By: #### C MADM, CMP #### [facility] [address] [place] [address] Dr. Tracy Gutierrez Bilirubin [Mass/Vol] 0.5 mg/dL Normal 0.2-1.0 [facility] Comment on above: Performed By: #### C RICKIEM, CMP #### [facility] [address] [place] [address] [address] Tracy Gutierrez Calcium [Mass/Vol] 9.4 mg/dL Normal 8.5-10.1 [facility] Comment on above: Performed By: #### C MADM, CMP #### [facility] [address] [place] [address] [address] Tracy Gutierrez Chloride [Moles/Vol] 102 mmol/L Normal 98-107 [facility] Comment on above: Performed By: #### C MADM, CMP #### [facility] [address] [place] [address] [address] Tracy Gutierrez CO2 [Moles/Vol] 29.6 mmol/L Normal 21.0-32.0 [facility] Comment on above: Performed By: #### C MADM, CMP #### [facility] [address] [place] [address] Dr. Tracy Gutierrez Creatinine [Mass/Vol] 1.14 mg/dL Normal 0.70-1.30 [facility] Comment on above: Performed By: #### C MADM, CMP #### [facility] [address] [place] [address] Dr. Tracy Gutierrez EGFR-AF BRUNEIAN >60 Normal >=60 [facility] Comment on above: Performed By: #### C MADM, CMP #### [facility] [address] [place] [address] Dr. Tracy Gutierrez EGFR-NON AF BRUNEIAN >60 Normal >=60 [facility] Comment on above: Performed By: #### C MADM, CMP #### [facility] [address] [place] [address] Dr. Tracy Gutierrez Globulin (S) [Mass/Vol] 4.1 g/dL Normal [facility] Comment on above: Performed By: #### C MADM, CMP #### [facility] [address] [place] [address] [address] Tracy Gutierrez Glucose [Mass/Vol] 203 mg/dL Critically high 74-106 [facility] Comment on above: Performed By: #### C MADM, CMP #### [facility] [address] [place] [address] [address] Tracy Gutierrez Potassium [Moles/Vol] 4.3 mmol/L Normal 3.5-5.1 [facility] Comment on above: Performed By: #### C MADM, CMP #### [facility] [address] [place] [address] [address] Tracy Gutierrez Protein [Mass/Vol] 7.8 g/dL Normal 6.4-8.2 [facility] Comment on above: Performed By: #### C RICKIEM, CMP #### [facility] [address] [place] [address] [address] Tracy Gutierrez Sodium [Moles/Vol] 138 mmol/L Normal 136-145 [facility] Comment on above: Performed By: #### C RICKIEM, CMP #### [facility] [address] [place] [address] Dr. Tracy Gutierrez Urea nitrogen [Mass/Vol] 16.0 mg/dL Normal 7.0-18.0 [facility] Comment on above: Performed By: #### C PENNY, CMP #### [facility] [address] [place] [address] Dr. Tracy Gutierrez Urea nitrogen/Creatinine [Mass ratio] 14.0 mg/mg Normal [facility] Comment on above: Performed By: #### C PENNY, CMP #### [facility] [address] [place] [address] Dr. Tracy Gutierrez XR CHEST 1 Von [...] by: NIKUNJ SALES Date: 2022-05-02 16:[address] [facility] Comp Metabolic Profon 2020 (cont.) Normal [facility] Comment on above: Result Comment: Aver age GFR for 70 or more years old: 75 mL/min/1.73sq m Chronic Kidney Disease: <60 mL/min/1.73sq m Kidney failure: <15 mL/min/1.73sq m eGFR calculated using average adult body mass. Additional eGFR calculator available at: http://www.[employer]/multiple_crcl_2012.htm Performed By: #### Randall FAST, CP #### [facility] [address] [place], [place] [id number] Animal Rescuer: Abisai Tellez MD #### LIPR #### [facility] [address] [place], [place] [id number] Animal Rescuer: Shaheed Alcocer MD Albumin [Mass/Vol] 4.1 g/dL Normal 3.5-5.2 [facility] Comment on above: Performed By: #### Randall FAST, CP #### [facility] [address] [place], [place] [phone] Animal Rescuer: Abisai Tellez MD #### LIPR #### [facility] [address] [place], [place] [phone] Animal Rescuer: Shaheed Alcocer MD Alkaline Phos 78 U/L Normal 40-129 [facility] Comment on above: Performed By: #### Randall FAST, CP #### [facility] [address] [place], [place] [id number] Animal Rescuer: Abisai Tellez MD #### LIPR #### [facility] [address] [place], [place] [phone] Animal Rescuer: Shaheed Alcocer MD ALT [Catalytic activity/Vol] 34 U/L Normal 5-41 [facility] Comment on above: Performed By: #### Randall FAST, CP #### [facility] [address] [place], [place] [phone] Animal Rescuer: Abisai Tellez MD #### LIPR #### [address] [phone] Animal Rescuer: Shaheed Alcocer MD Anion gap [Moles/Vol] 12 mmol/L Normal 9-17 [facility] Comment on above: Performed By: #### Randall FAST, CP #### [facility] [address] [place], [place] [id number] Animal Rescuer: Abisai Tellez MD #### LIPR #### [address] [id number] Animal Rescuer: Shaheed Alcocer MD AST [Catalytic activity/Vol] 28 U/L Normal <40 [facility] Comment on above: Performed By: #### Randall FAST, CP #### [facility] [address] [place] [phone] ( Animal Rescuer: Abisai Tellez MD #### LIPR #### [address] [address] Animal Rescuer: Shaheed Alcocer MD Bilirubin [Mass/Vol] 0.31 mg/dL Normal 0.30-1.20 [facility] Comment on above: Performed By: #### Randall FAST, CP #### [facility] [address] [place] [address] Animal Rescuer: Abisai Tellez MD #### LIPR #### [address] [address] Animal Rescuer: Shaheed Alcocer MD BUN/CRE Ratio 23 High 9-20 [facility] Comment on above: Performed By: #### Randall FAST, CP #### [facility] [address] [place], [place] [id number] Animal Rescuer: Abisai Tellez MD #### LIPR #### [address] [place] [address] Animal Rescuer: Shaheed Alcocer MD Calcium [Mass/Vol] 8.9 mg/dL Normal 8.6-10.4 [facility] Comment on above: Performed By: #### Randall FAST, CP #### [facility] [address] [place] [address] Animal Rescuer: Abisai Tellez MD #### LIPR #### [facility] [address] [place] [address] Animal Rescuer: Shaheed Alcocer MD Chloride [Moles/Vol] 96 mmol/L Low 98-107 [facility] Comment on above: Performed By: #### Randall FAST, CP #### [facility] [address] [place] [address] Animal Rescuer: Abisai Tellez MD #### LIPR #### [address] [address] Animal Rescuer: Shaheed Alcocer MD CO2 [Moles/Vol] 25 mmol/L Normal 20-31 [facility] Comment on above: Performed By: #### Randall FAST, CP #### [facility] [address] [place] [address] Animal Rescuer: Abisai Tellez MD #### LIPR #### [address] [address] Animal Rescuer: Shaheed Alcocre MD Creatinine [Mass/Vol] 0.96 mg/dL Normal 0.70-1.20 [facility] Comment on above: Performed By: #### Randall FAST, CP #### [facility] [address] [place] [address] Animal Rescuer: Abisai Tellez MD #### LIPR #### [address] [address] Animal Rescuer: Shaheed Alcocer MD GFR, Amer >60 Normal >60 [facility] Comment on above: Performed By: #### Z FAST, CP #### [facility] [address] [place], [place] [phone] Animal Rescuer: Abisai Tellez MD #### LIPR #### [address] [phone] Animal Rescuer: Shaheed Alcocer MD GFR,non Amer >60 Normal >60 [facility] Comment on above: Performed By: #### Z FAST, CP #### [facility] [address] [place], [place] [phone] Animal Rescuer: Abisai Tellez MD #### LIPR #### [address] [phone] Animal Rescuer: Shaheed Alcocer MD Glucose [Mass/Vol] 157 mg/dL High 70-99 [facility] Comment on above: Performed By: #### Randall FAST, CP #### [facility] [address] [place], [place] [phone] Animal Rescuer: Abisai Tellez MD #### LIPR #### [address] [address] Animal Rescuer: Shaheed Alcocer MD Potassium [Moles/Vol] 4.7 mmol/L Normal 3.7-5.3 [facility] Comment on above: Performed By: #### Z FAST, CP #### [facility] [address] [place], [place] [phone] Animal Rescuer: Abisai Tellez MD #### LIPR #### [address] [phone] Animal Rescuer: Shaheed Alcocer MD Protein [Mass/Vol] 7.4 g/dL Normal 6.4-8.3 [facility] Comment on above: Performed By: #### Z FAST, CP #### [facility] [address] [place] [address] Animal Rescuer: Abisai Tellez MD #### LIPR #### [address] [address] Animal Rescuer: Shaheed Alcocer MD Sodium [Moles/Vol] 133 mmol/L Low 135-144 [facility] Comment on above: Performed By: #### Randall FAST, CP #### [facility] [address] [place], [place] [phone] Animal Rescuer: Abisai Tellez MD #### LIPR #### [address] [address] Animal Rescuer: Shaheed Alcocer MD Urea nitrogen [Mass/Vol] 22 mg/dL Normal 8-23 [facility] Comment on above: Performed By: #### Randall FAST, CP #### [facility] [address] [place] [address] Animal Rescuer: Abisai Tellez MD #### LIPR #### [address] [address] Animal Rescuer: Shaheed Alcocer MD Albumin/Glob Ratio NOT REPORTED Normal 1.0-2.5 [facility] Comment on above: Performed By: #### Randall FAST, CP #### [facility] [address] [place] [address] Animal Rescuer: Abisai Tellez MD #### LIPR #### [address] [address] Animal Rescuer: Shaheed Alcocer MD Staging: NOT REPORTED Normal [facility] Comment on above: Performed By: #### Randall FAST, CP #### [facility] [address] [place], [place] [phone] Animal Rescuer: Abisai Tellez MD #### LIPR #### [facility] [employer] [address] [place] [address] Animal Rescuer: Shaheed Alcocer MD Lipid Profileon 09-19-2021 Cholesterol [Mass/Vol] 135 mg/dL Normal <200 [facility] Comment on above: Result Comment: Cholesterol Guidelines: <200 Desirable 200-240 Borderline >240 Undesirable Performed By: #### Randall FAST, CP #### [facility] [address] [place] [address] Animal Rescuer: Abisai Tellez MD #### LIPR #### [address] [address] Animal Rescuer: Shaheed Alcocer MD Cholesterol in HDL [Mass/Vol] 30 mg/dL Low >40 [facility] Comment on above: Result Comment: HDL Guidelines: <40 Undesirable 40-59 Borderline >59 Desirable Performed By: #### Randall FAST, CP #### [facility] [address] [place] [address] Animal Rescuer: Abisai Tellez MD #### LIPR #### [address] [address] Animal Rescuer: Shaheed Alcocer MD Cholesterol in LDL [Mass/Vol] 80 mg/dL Normal 0-130 [facility] Comment on above: Result Comment: LDL Guidelines: <100 Desirable 100-129 Near to/above Desirable 130-159 Borderline >159 Undesirable Direct (measured) LDL and calculated LDL are not interchangeable tests. Performed By: #### Randall FAST, CP #### [facility] [address] [place], [place] [phone] Animal Rescuer: Abisai Tellez MD #### LIPR #### [address] [phone] Animal Rescuer: Shaheed Alcocer MD Cholesterol.total/Apple sterol in HDL [Mass ratio] 4.5 {ratio} Normal <5 [facility] Comment on above: Performed By: #### Z FAST, CP #### [facility] [address] [place], [place] [phone] Animal Rescuer: Abisai Tellez MD #### LIPR #### [facility] [address] [place] [address] Animal Rescuer: Shaheed Alcocer MD Triglyceride [Mass/Vol] 126 mg/dL Normal <[address] [facility] Comment on above: Result Comment: Triglyceride Guidelines: <150 Desirable 150-199 Borderline 200-499 High >499 Very high Based on AHA Guidelines for fasting triglyceride, July 2012. Performed By: #### Z FAST, CP #### [facility] [address] [place], [place] [phone] Animal Rescuer: Abisai Tellez MD #### LIPR #### [address] [address] Animal Rescuer: Shaheed Alcocer MD Cholesterol,VLDL NOT REPORTED Normal 11-04 [facility] Comment on above: Performed By: #### Z FAST, CP #### [facility] [address] [place] [address] Animal Rescuer: Abisai Tellez MD #### LIPR #### [address] [address] Animal Rescuer: Shaheed Alcocer MD Patient fasting?on 1 Patient fasting? YES Normal [facility] Comment on above: Performed By: #### Z FAST, CP #### [facility] [address] [place], [place] [phone] Animal Rescuer: Abisai Tellez MD #### LIPR #### [address] [address] Animal Rescuer: Shaheed Alcocer MD COVID Quick Testingon 2020 Result Negative [employer] Other Quick Fluon 09-16-2021 FLUAV Ab CF (S) [Titer] Negative N [employer] Other FLUBV Ab CF (S) [Titer] Negative N [employer] Other [id number] 07-20-2021 SARS-CoV-2 (COVID-19) RNA GARRY+probe Ql (Unsp spec) Normal [facility] Comment on above: Performed By: #### C OVID #### [facility] [address] [place], [place] [id number] Animal Rescuer: Shaheed Alcocer MD [facility] [address] [place] [address] Animal Rescuer: Abisai Tellez MD SARS-CoV-2 (COVID-19) RNA GARRY+probe Ql (Unsp spec) Not detected Normal NOTDET [facility] Comment on above: Result Comment: The specimen is NEGATIVE for SARS-CoV-2, the novel coronavirus associated with COVID-19. A negative result does not rule out COVID-19. Carole SARS-CoV-2 for use on the Carole Purkin[employer]0/8800 Systems is a real-time RT-PCR test intended [...] this assay. Fact sheet for Healthcare Providers: https://www.fda.gov/media/499326/download Fact sheet for Patients: https://www.fda.gov/media/120607/download METHODOLOGY: RT-PCR Performed By: #### C OVID #### [employer] [facility] [address] [place], [place] [id number] Animal Rescuer: Shaheed Alcocer MD [facility] [address] [place] [address] Animal Rescuer: Abisai Tellez MD [id number] 07-19-2021 SARS-CoV-2 (COVID-19) RNA GARRY+probe Ql (Unsp spec) .NASOPHARYNGEAL SWAB Normal [facility] Comment on above: Performed By: #### C OVID #### [facility] [address] [place], [place] [id number] Animal Rescuer: Shaheed Alcocer MD [facility] [address] [place] [address] Animal Rescuer: Abisai Tellez MD US SCREENING FOR AAAon [...] Wesley Aquino MD 08/02/20 Final result Normal [facility] VL DUP CAROTID BILATERALon 0 12-10-[address] [facility] l Vascular Carotid Procedure Patient Name BRANT Date of Study 12/08/2019 SHARON Rinaldi Date of 1950 Gender Male Age 69 year(s) Race Room Number Corporate ID [id number] # Patient Acct [id number] # MR # [id number] Stranner ELENI Fenton Interpreting Physician Diego Luis MD Referring Referring Physician Castillo Clark Nurse Practitioner Procedure Type of Study: Cerebral: Carotid, Carotid Scan Bilateral. Patient Status:Out Patient. Comments:INDICATIONS: 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) ([facility]) I83.9, R.29.810 Basic Classification of ICA Stenosis: [...] - Additional Measurements:ICAPSV/C CAPSV 1.47.ICAEDV/CCAEDV 2.54. [facility]- [place], [place], Mhpn Incoming Cardio Results From Cpacs/Ge - 12/10/2019 1:16 PM EST [facility] Vascular Carotid Procedure Patient Name BRANT Date of Study 12/08/2019 SHARON Rinaldi Date of 1950 Gender Male Age 69 year(s) Race Room Number Corporate ID [id number] # Patient Acct [id number] # MR # [id number] Stranner ELENI Fenton Interpreting Physician Diego Luis MD Referring Referring Physician Castillo Clark Nurse Practitioner Procedure Type of Study: Cerebral: Carotid, Carotid Scan Bilateral. Patient Status:Out Patient. Comments:INDICATIONS: 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) ([facility]) I83.9, R.29.810 Basic Classification of ICA Stenosis: [...] side. - Additional Measurements:ICAPSV/C CAPSV 1.47.ICAEDV/CCAEDV 2.54. [place], [place] CT HEAD WO CONTRASTon 2019 No acute intracrania l abnormality. [place] EXAMINATION: CT OF THE HEAD WITHOUT [...] droop due to acute cerebrovascular accident (CVA) ([facility]) TECHNOLOGIST PROVIDED HISTORY: Left facial droop with [...] of the visualized skull or soft tissues. [place], [place], [place] Incoming Radiant Results From bubl/[place] - 12/08/2019 4:41 PM EST EXAMINATION: CT [...] droop due to acute cerebrovascular accident (CVA) ([facility]) TECHNOLOGIST PROVIDED HISTORY: Left facial droop with [...] soft tissues. IMPRESSION: No acute intracranial abnormality. [place], [place] Glucose, Whole Bloodon 05-31 Glucose [Mass/Vol] 113 mg/dL High 65 - 99 mg/dL [place] Interpretation and review of laboratory results Abnormal [place], [place] Progress Noteon 04-13-2018 HIM IP Note OR Carrot Tier Normal [facility] Progress Noteon 01-01-2018 HIM IP Note OR Carrot Tier Normal [facility] HIM IP Note OR Carrot Tier Normal [facility] CBCon 08-03-2017 Erythrocyte distribution width Auto Ratio (RBC) 13.9 % Normal 12.5-15.4 [facility] Comment on above: Performed By: #### C BC ####[address] [place] [address] Erythrocytes (RBC) 5.09 10*6/uL Normal 4.5-5.9 [facility] Comment on above: Performed By: #### C BC ####[address] [address] Hematocrit (HCT) 44.0 % Normal 41-53 [facility] Comment on above: Performed By: #### C BC ####[address] [address] Hemoglobin mass conc (Bld) 14.2 g/dL Normal 13.5-17.5 [facility] Comment on above: Performed By: #### C BC ####[address] [address] MCH 27.9 pg Normal 26-34 [facility] Comment on above: Performed By: #### C BC ####[address] [address] MCHC mass conc (RBC) 32.3 g/dL Normal 31-37 [facility] Comment on above: Performed By: #### C BC ####[address] [address] MCV 86.3 fL Normal 80-100 [facility] Comment on above: Performed By: #### C BC ####[address] [address] Platelet mean volume (PMV) 9.2 fL Normal 6.0-12.0 [facility] Comment on above: Result Comment: [address] [place] [address] Performed By: #### C BC ####[address] [address] Platelets 170 10*3/uL Normal 140-450 [facility] Comment on above: Performed By: #### C BC ####[address] [address] WBC (Leukocytes) 9.4 10*3/uL Normal 3.5-11.0 [facility] Comment on above: Performed By: #### C BC ####[address] [address] Comp Metabolic Profon 2016 Aspartate aminotransferase (AST) 31 U/L Normal <40 [facility] Comment on above: Performed By: #### L IPR, CP ####[address] [address] (cont.) Normal [facility] Comment on above: Result Comment: Aver age GFR for 60-69 years old: 85 mL/min/1.73sq mChronic Kidney Disease: <60 mL/min/1.73sq mKidney failure: <15 mL/min/1.73sq meGFR calculated using average adult body mass. Additional eGFR calculator available at:http://www.Routehappy.Arrayit/multiple_crcl_2012.htm[address] [address] Performed By: #### L IPR, CP ####[address] [address] Alanine aminotransferase (ALT) 34 U/L Normal 5-41 [facility] Comment on above: Performed By: #### L IPR, CP ####[address] [address] Albumin 3.5 g/dL Normal 3.5-5.2 [facility] Comment on above: Performed By: #### L IPR, CP ####[address] [address] Albumin/Globulin Ratio 1.0 {ratio} Normal 1.0-2.5 [facility] Comment on above: Performed By: #### L IPR, CP ####[address] [address]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 Pelaez Home Medication Instructions YENNIFER:[id number] Printed on:05/31/19 0950 Medication Information apixaban (ELIQUIS) [...] HC EXTRACRANIAL BILAT STUDY Castillo Clark MD [address] [place] [address] Dr [address] [place] [address] [facility] [address] [place] [address] Status Reason Specialty Diagnoses / Procedures Re ferred By Contact Referred To Contact Closed Radiology Diagnoses 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) Procedures CT HEAD WO CONTRAST HC CTA HEAD W & W/O CONT HC CT BRAIN W/O CONTRAST Castillo Clark MD [address] [place] [address] Dr [address] [place] [address] [facility] Ct Scan [address] [place] [address] Assessments Diagnosis 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) Additional Source Comments (unrecognized sect ion and content) No Status Records FoundNo Status Records FoundNo Status Records FoundNo Status Records FoundNo Status Records FoundNo Status Records FoundNo Status Records FoundNo Status Records FoundNo Status Records Found INFORMATION SOURCE (unrecogn ized section and content) DATE CREATED AUTHOR 03/25/2018 [facility] DATE CREATED AUTHOR AUTHOR'S ORGANIZ ATION 04/13/2018 [facility] DATE CREATED AUTHOR AUTHOR'S ORGANIZ ATION 07/20/2021 [facility] DATE CREATED AUTHOR AUTHOR'S ORGANIZ ATION 09/20/2021 [facility] DATE CREATED AUTHOR AUTHOR'S ORGANIZ ATION 11/07/2022 [facility] DATE CREATED AUTHOR AUTHOR'S ORGANIZ ATION 11/28/2022 [facility] DATE CREATED AUTHOR AUTHOR'S ORGANIZ ATION 04/07/2023 [facility] DATE CREATED AUTHOR AUTHOR'S ORGANIZ ATION 01/26/2024 [facility] DATE CREATED AUTHOR AUTHOR'S ORGANIZ ATION 03/16/2024 [facility] EPIC Reason for Visit (unrecogniz ed section and content) Status Reason Specialty Diagnoses / Procedures Referre d By Contact Referred To Contact Diagnoses SCREENING Procedures OR OFFICE/OUTPT VISIT,PROCEDURE ONLY OR COLONOSCOPY FLX DX W/COLLJ SPEC WHEN PFRMD COLONOSCOPY Back, MD Felix [address] [place] [address] [facility] Status Reason Specialty Diagnoses / Procedures Re ferred By Contact Referred To Contact Pending Review Vascular Lab Diagnoses 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) Procedures VL DUP CAROTID BILATERAL HC EXTRACRANIAL BILAT STUDY Castillo Clark MD [address] [place] [address] [facility] [address] [place] [address] Status Reason Specialty Diagnoses / Procedures Re ferred By Contact Referred To Contact Closed Radiology Diagnoses 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) Procedures CT HEAD WO CONTRAST HC CTA HEAD W & W/O CONT HC CT BRAIN W/O CONTRAST Castillo Clark MD [address] [place] [address] [facility] [address] [place] [address] Care Teams (unrecognized sec tion and content) [...] BE BASED ON THE PRIMARY CLINICAL RECORDS. [employer] provides no warranty or guarantee of the accuracy or completeness of information in this document.
== END 2024-03-27 12:10 | disposition home or self-care (01) ==
PROVIDERS: Emergency Provider Emergency Medicine Emergency Medical Services; PCP Internal Medicine
DX: S61.411A Laceration without foreign body of right hand, initial encounter (principal); Z23 Encounter for immunization; W29.8XXA Contact with other powered hand tools and household machinery, initial encounter
CPT/HCPCS: 12002; 90471; 90715; 99284

== ENCOUNTER 2024-04-26 07:49 | Outpatient (OUT) | payer OTHER, SELFPAY ==
--- NOTE | 2024-04-26 07:42 | CA_ITS ---
Patient Name: SHARON GUO MR#: [id number] : 1950 Exam Date: 04/26/2024 Ordering Doctor: DR GAETANO TOVAR M.D. ECHOCARDIOGRAM REPORT PROCEDURE: CA ECHO DOPPLER COMPLETE INDICATIONS: ALLISON COMPARISON: None. DESCRIPTION: COMPLETE ECHOCARDIOGRAM Real-time transthoracic echocardiography with 2D, M-mode, spectral and color flow Doppler performed. QUALITY: Technical quality was good. LEFT VENTRICLE: Normal chamber size. Mild left ventricular hypertrophy. LV EF: Global left ventricular systolic function is hyperdynamic. Visual estimation of left ventricular ejection fraction is 65-70%. No segmental wall motion abnormalities DIASTOLIC: Grade 2, moderate diastolic dysfunction. ATRIAL SEPTUM: Inadequately seen LEFT ATRIUM: Mild dilatation. RIGHT ATRIUM: Normal chamber size. RIGHT VENTRICLE: Normal chamber size. Normal right ventricular systolic function. TRICUSPID VALVE: Normal mobility and thickness. No stenosis with mild regurgitation. Mild pulmonary hypertension. RVSP 42mmHg MITRAL VALVE: Normal mobility and thickness. No evidence of mitral valve stenosis. Mild mitral annular calcification. Trivial mitral regurgitation. AORTIC VALVE: Normal trileaflet appearance. No visible sclerosis. Normal leaflet mobility. No evidence of aortic valve stenosis. No aortic regurgitation. AORTIC ROOT: Normal diameter and appearance. PULMONIC VALVE: Normal thickness and mobility. No stenosis. Trivial regurgitation. PERICARDIUM: Anterior free space; trivial effusion versus fat pad. IVC: Collapses with inspirations. Normal size. CONCLUSION: 1. Global left ventricular systolic function is hyperdynamic; visually estimated ejection fraction is 65 to 70% 2. Normal right ventricular size and systolic function 3. Mild left ventricular hypertrophy 4. Grade 2, moderate diastolic dysfunction 5. Mild tricuspid regurgitation 6. Mildly elevated right ventricular systolic pressure; RVSP 42 mmHg 7. Anterior free space; trivial effusion versus fat pad Adult Echocardiography Procedure Report Left Ventricle LVEDD (3.7 - 5.6 cm): 4.26 cm LVESD (2.2 - 4.0 cm): 2.88 cm LVIVS thickness (0.6 - 1.2 cm): 1.23 cm LVPW thickness (0.5 - 1.0 cm): 1.02 cm e': 0.07 m/s E - e': 10.44 LVOT Max Gradient: 5.68 mm[Hg] LVOT Area (cm2): 1.19 m/s Peak Velocity (LVOT): 1.19 m/s Mean Velocity (LVOT): 0.91 m/s LVOT Diameter 2.13 cm Left Ventricular Ejection Fraction: 69.56 % Left Atrium LA Volume Index (2D A2C): 37.88 ml/m2 Left Atrium Systolic Dimension: 4.54 cm Mitral Valve MV E to A Ratio: 1.23 Mitral Valve A-Wave Peak Velocity: 0.58 m/s Mitral Valve E-Wave Peak Velocity: 0.72 m/s Right Ventricle RV Internal Diastolic Dimension: 2.79 cm Aorta AO Root Diam: 3.67 cm Ascending Ao Diam: 3.54 cm Aortic Valve AoV Area (Peak Garrison): 2.60 cm2, 2.60 cm2 AoV Area (VTI): 3.55 cm2, 3.55 cm2 Peak Velocity(Antegrade Flow): 1.63 m/s Peak Gradient(Antegrade Flow): 10.68 mm[Hg] Mean Velocity(Antegrade Flow): 1.19 m/s Mean Gradient(Antegrade Flow): 6.27 mm[Hg] Velocity Time Integral: 37.81 cm Tricuspid Valve Peak Velocity (Regurgitant Flow): 2.40 m/s, 3.12 m/s, 2.74 m/s Pulmonic Valve Mean Gradient: 1.76 mm[Hg] Mean Velocity: 0.63 m/s Peak Velocity: 0.91 m/s, 0.73 m/s Peak Gradient: 2.11 mm[Hg], 3.32 mm[Hg] Right Atrium Right Atrium Systolic Pressure: 33.41 ml, 33.41 ml Dictated by: Gaetano Tovar M.D. on 04/26/2024 at 15:34 Approved by: Gaetano Tovar M.D. on 04/26/2024 at 15:39
== END 2024-04-26 07:50 | disposition home or self-care (01) ==
LOC: CARD 07:50
PROVIDERS: PCP Internal Medicine; Visit Provider Internal Medicine Interventional Cardiology
DX: R06.09 Other forms of dyspnea (principal)
CPT/HCPCS: 93306

== ENCOUNTER 2024-06-24 11:41 | Outpatient (OUT) | payer OTHER, SELFPAY ==
[2024-06-24 12:14] LABS: Estimated Average Glucose 203 mg/dL; Glycohemoglobin A1C 8.7 % (4.5-6.2)
[2024-06-24 12:36] LABS: Basophils Absolute Auto 0.1 10^3/uL (0.0-0.1); Basophils Percent Auto 0.8 % (0.2-2.0); Eosinophils Absolute Auto 0.4 10^3/uL (0.0-0.7); Eosinophils Percent Auto 5.7 % (0.9-7.0); Hematocrit 42.7 % (42.0-54.0); Hemoglobin 13.9 g/dL (14.0-18.0); Immature Granulocytes Abs Auto 0.03 10^3/uL (0.00-0.03); Immature Granulocytes Pct Auto 0.4 % (0.0-0.5); Lymphocytes Absolute Auto 1.8 10^3/uL (1.2-3.8); Lymphocytes Percent Auto 24.3 % (20.5-60.0); Mean Corpuscular HGB Conc 32.6 g/dL (29.9-35.2); Mean Corpuscular Hemoglobin 28.7 pg (25.9-34.0); Mean Corpuscular Volume 88.2 fL (80.0-94.0); Mean Platelet Volume 11.8 fL (9.5-13.5); Monocytes Absolute Auto 0.5 10^3/uL (0.3-0.8); Monocytes Percent Auto 6.8 % (1.7-12.0); Neutrophils Absolute Auto 4.6 10^3/uL (1.4-6.5); Platelet Count 180 10^3/uL (150-450); Red Blood Count 4.84 10^6/uL (4.70-6.10); Red Cell Distribution Width 12.5 % (11.0-15.0); White Blood Count 7.3 10^3/uL (4.0-11.0)
[2024-06-24 13:58] LABS: Alanine Aminotransferase 55 U/L (16-63); Albumin Globulin Ratio 0.9; Albumin Level 3.4 g/dL (3.4-5.0); Alkaline Phosphatase 91 U/L (46-116); Anion Gap 8.9; Aspartate Amino Transferase 63 U/L (15-37); BUN Creatinine Ratio 14.2; Bilirubin Total 0.5 mg/dL (0.2-1.0); Calcium 9.3 mg/dL (8.5-10.1); Carbon Dioxide 32.4 mmol/L (21.0-32.0); Chloride 100 mmol/L (98-107); Estimated GFR (African America >60 (>=60); Estimated GFR (Non-African Ame >60 (>=60); Globulin 3.9 g/dL; Glucose 186 mg/dL (74-106); Potassium 4.3 mmol/L (3.5-5.1); Sodium 137 mmol/L (136-145); Total Protein 7.3 g/dL (6.4-8.2)
[2024-06-24 14:37] LABS: Chol HDL Ratio 4.4; Cholesterol 159 mg/dL (<=200); HDL Cholesterol 36 mg/dL (40-60); Triglycerides 378 mg/dL (<=150); VLDL CHOLESTEROL 75.6 mg/dL
== END 2024-06-24 11:42 | disposition home or self-care (01) ==
LOC: LAB 11:44
DX: E78.5 Hyperlipidemia, unspecified (principal); I10 Essential (primary) hypertension; E11.9 Type 2 diabetes mellitus without complications
CPT/HCPCS: 36415; 80053; 80061; 83036; 85025

== ENCOUNTER 2024-08-20 11:17 | Outpatient (OUT) | payer OTHER, SELFPAY ==
[2024-08-20 12:03] LABS: Anion Gap 13.1; BUN Creatinine Ratio 14.4; Calcium 9.5 mg/dL (8.5-10.1); Carbon Dioxide 31.2 mmol/L (21.0-32.0); Chloride 102 mmol/L (98-107); Estimated GFR (African America 57 (>=60 mL/min/1.73m^2); Estimated GFR (Non-African Ame 47 (>=60 mL/min/1.73m^2); Glucose 137 mg/dL (74-106); Potassium 4.3 mmol/L (3.5-5.1); Sodium 142 mmol/L (136-145)
== END 2024-08-20 11:18 | disposition home or self-care (01) ==
LOC: LAB 11:18
PROVIDERS: Visit Provider Internal Medicine Interventional Cardiology
DX: I11.9 Hypertensive heart disease without heart failure (principal)
CPT/HCPCS: 36415; 80048

== ENCOUNTER 2024-08-30 10:32 | Outpatient (OUT) | payer OTHER, SELFPAY ==
--- OUTSIDE RECORDS SUMMARY | 2024-08-30 10:53 | XMS_ITS | CCD ---
Author Organization [facility] Care Team Providers Care Oracle Pl Sql Developer Name Role Phone PHYSICIAN, DEFAULT Unavailable Unavailable PHYSICIAN, DEFAULT Unavailable Unavailable HAKAM, NENA Unavailable Unavailable HAKAM, NENA Unavailable Unavailable ENRIQUETA, LESLI Unavailable Unavailable KABOUR, AMEER Unavailable Unavailable RAMIREZ, HOSSAMELDIN I Unavailable Unavailab le ENRIQUETA LESLI Unavailable Unavailable RAMIREZ, HOSSAMELDIN I Unavailable Unavailab lobo RAMIREZ, HOSSAMELDIN I Unavailable Unavailab Eusebio Marrero Primary Care Provider Eusebio Daniels MD Primary Care Provider EUSEBIO DANIELS Primary Care Unavailable EUSEBIO DANIELS Referring Unavailable EUSEBIO DANIELS Primary Care Unavailable EUSEBIO DANIELS Referring Unavailable EUSEBIO DANIELS Primary Care Unavailable Pat Jesus Unavailable MD Indigo Mcnally Attending Provider Shaikh Mcnally Attending Unavailable Shaikh Mcnally Admitting Unavailable DR MP RODRIGES Primary Care Unavailable GLADIS ., CANDELARIO Admitting Unavailable GLADIS .CANDELARIO Attending Unavailable GLADIS ., CANDELARIO Consulting Unavailable Nikunj Pino Consulting Unavailable ELTAHAWY, EHAB Admitting Unavailable EL[facility]HAWY, EHAB Attending Unavailable SHAIKH Юлия MCNALLY Primary Care Unavailable EL[facility]HAWY, EHAB Consulting Unavailable [facility]WY, EHAB Admitting Unavailable [place]WY, EHAB Attending Unavailable SHAIKH Юлия MCNALLY Primary Care Unavailable Kate Cabrera Primary Care Physician SHAIKH MCNALLY Referring Unavailable Ross WEINBERG Attending Unavailable Shaikh Mcnally MD Unavailable Demetrio Lowry MD Primary Care Provider Dipti PEREZ, Shima Unavailable Jesus PARKER, Nichol Unavailable Unavailable Shaikh Mcnally MD Unavailable SHAIKH MCNALLY Attending Unavailable SHAIKH MCNALLY Attending Unavailable SHAIKH MCNALLY Attending Unavailable SHAIKH MCNALLY Attending Unavailable DALI, Attending Unavailable SHIMA RESENDEZ Attending Unavailabl e PIYUSH SANDERS Attending Unavailable SHIMA RESENDEZ Referring Unavailabl e RENETTA LUX Attending Unavailable SHIMA RESENDEZ Referring Unavailabl e GUY EHAB Attending Unavailable GUY EHAB Attending Unavailable Allergies Allergy Classification Reported Allergen(s) Allergy Type Date of Onset Reaction(s) Facility (1 source) No Known Medication Allergies; Translations: [No Known Medication Allergies] Propensity to adverse reactions (disorder) [facility] Repository Medications Current Medications Medication Drug Class(es) Dates Sig (Normalized) Sig (Original) Albuterol (6 sources) beta2-Adrenergic Agonist Start: 12-19-2023 take 2 puff(s) by inhalation every four hours Albuterol (Eqv-ProAir HFA) 2 puff(s), Inhalation, q4hr Shortness of breath or wheezing, Refill(s) 0 Start Date: 12/19/23 Status: Ordered Start: 09-16-2021 take 2 puff(s) by in halation four times daily as needed Albuterol Sulfate HFA 108 (90 Base) MCG/ACT 2 puffs Inhalation qid prn Sep, Active take 2 puff(s) by in halation every four hours albuterol HFA 90 mcg/act inhaler Inhale 2 puffs every 4 (four) hours if needed for shortness of breath Active albuterol 0.833 mg/ml / ipratropium bromide 0.167 mg/ml inhalation solution (5 sources) Anticholinergic, beta2-Adrenergic Agonist Start: 12-19-2023 DuoNeb 2.5 mg-0 .5 mg/3 mL Soln-Inh 3 mL, NEB, QID, Refill(s) 0 Start Date: 12/19/23 Status: Ordered ipratropium-albu terol (Duo-Neb) 0.5-2.5 mg/3 mL nebulizer solution Take 3 mL by nebulization in the morning and 3 mL at noon and 3 mL in the evening and 3 mL before bedtime. Active apixaban 5 mg oral tablet (10 sources) Factor Xa Inhibitor Start: 12-19-2023 take 1 tablet by mouth twice daily Eliquis 5 mg oral tablet 5 mg = 1 tab(s), Oral, BID, Refills(s) 0 Start Date: 12/19/23 Status: Ordered Eliquis Active aspirin 81 mg delayed release oral tablet (10 sources) Platelet Aggregation Inhibitor, Nonsteroidal Anti-inflammatory Drug Start: 06-17-2024 take 1 tablet by mouth once daily aspirin 81 MG EC tablet Indications: History of CVA (cerebrovascular accident) , Hyperlipidemia, unspecified (CMS/HCC) Take 1 tablet (81 mg) by mouth Daily 90 tablet 2 06/17/2024 Active Start: 12-19-2023 take 1 tablet by hector th once daily aspirin 81 mg Oral EC Tab 81 mg = 1 tab(s), Oral, Daily, Refills(s) 0 Start Date: 12/19/23 Status: Ordered Aspirin 81 Activ e take 1 tablet by hector th once daily aspirin EC 81 MG EC tablet Take 81 mg by mouth daily 0 Active atorvastatin 80 mg oral tablet (10 sources) HMG-CoA Reductase Inhibitor Start: 06-17-2024 take 1 tablet by mouth once daily atorvastatin (Lipitor) 80 MG tablet Indications: Hyperlipidemia, unspecified (CMS/HCC) Take 1 tablet (80 mg) by mouth Daily 100 tablet 1 06/17/2024 Active Start: 12-19-2023 take 1 tablet by hector th once daily atorvastatin 80 mg Tab 80 [...] hyperglycemia, without long-term current use of insulin ([facility]) Use to test daily 1 kit 0 03/29/2020 Active calcium chloride 0.0014 meq/ml / potassium chloride 0.004 meq/ml / sodium chloride 0.103 meq/ml / sodium lactate 0.028 meq/ml injectable solution (1 source) Start: 05-31-2019 lactated ringers infusion cholecalciferol 0.05 mg oral capsule (8 sources) Vitamin D take 1 capsule by mouth in the morning cholecalciferol (Vitamin D-3) 50 MCG (2000 UT) capsule Take 2,000 Units by mouth in the morning. Active take 1 capsule by mouth once giovanni ly Cholecalciferol (VITAMIN D) 2000 units CAPS capsule Take 1 capsule by mouth daily 0 Active dapagliflozin 5 mg oral tablet (2 sources) Sodium-Glucose Cotransporter 2 Inhibitor Start: 08-10-2024 End: 02-06-2025 take 1 tablet by mouth once daily dapagliflozin (Farxiga) 5 MG Indications: Type 2 diabetes mellitus with hyperglycemia, without long-term current use of insulin ([facility]) Take 1 tablet (5 mg) by mouth Daily 90 tablet 1 08/10/2024 02/06/2025 Active dilTIAZem hydrochloride 30 mg oral tablet (10 sources) Calcium Channel Tiffani Start: 12-19-2023 take [...] Active donepezil hydrochloride 10 mg oral tablet (7 sources) Start: 06-04-2021 take 1 tablet by mouth once daily at bedtime Aricept 10 mg Tab 10 mg = 1 tab(s), Oral, Once a day (at bedtime), Refills(s) 0 Start Date: 12/19/23 Status: Ordered Aricept Active fluticasone propionate 0.05 mg/actuat metered dose nasal spray (4 sources) Corticosteroid Start: 12-16-2023 take 2 spray(s) nasal route once daily fluticasone (Flonase) 50 MCG/ACT nasal spray Indications: Non-seasonal allergic rhinitis, unspecified trigger Administer 2 sprays into each nostril Daily Shake gently. Before first use, prime pump. After use, clean tip and replace cap. 16 g 2 12/16/2023 Active Fluticasone-Umecl idin-Vilant (Trelegy Ellipta) 200-62.5-25 MCG/ACT aerosol powder (4 sources) Start: 01-28-2024 take 1 puff(s) by inhalation once daily Fluticasone-Umeclid in-Vilant (Trelegy Ellipta) 200-62.5-25 MCG/ACT aerosol powder Indications: Chronic obstructive pulmonary disease, unspecified COPD type (CMS/HCC) Inhale 1 puff Daily 3 each 1 01/28/2024 Active furosemide 20 mg oral tablet (4 sources) Loop Diuretic Start: 05-10-2024 End: 05-10-2025 take 1 tablet by mouth in the morning furosemide (Lasix) 20 MG tablet Take 20 mg by mouth in the morning. 05/10/2024 05/10/2025 Active gabapentin 300 mg oral capsule (7 sources) Anti-epileptic Agent Start: 06-17-2024 End: 09-15-2024 take 1 capsule by mouth in the morning, then take 1 capsule by mouth in the evening, then take 1 capsule by mouth at bedtime gabapentin (Neurontin) 300 MG capsule Indications: Diabetic polyneuropathy associated with type 2 diabetes mellitus (CMS/HCC) Take 1 capsule (300 mg) by mouth in the morning and 1 capsule (300 mg) in the evening and 1 capsule (300 mg) before bedtime. 90 capsule 2 06/17/2024 09/15/2024 Active Start: 12-19-2023 take 1 capsule by mo [facility] three times daily gabapentin 300 mg Cap 300 mg = 1 cap(s), Oral, TID, Refills(s) 0 Start Date: 12/19/23 Status: Ordered Start: 03-20-2021 End: 09-16-2021 gabapentin (NEURONTIN) 300 M G capsule Take 1 capsule by mouth nightly for 180 days. Intended supply: 30 days 30 capsule 5 03/20/2021 09/16/2021 Active Gabapentin Activ e glimepiride 2 mg oral tablet (12 sources) Sulfonylurea Start: 08-10-2024 End: 02-06-2025 take 1 tablet by mouth in the morning glimepiride (Amaryl) 2 MG tablet Indications: Type 2 diabetes mellitus with hyperglycemia, without long-term current use of insulin (CMS/HCC) Take 1 tablet (2 mg) by mouth in the morning and 1 tablet (2 mg) before bedtime. 180 tablet 1 08/10/2024 02/06/2025 Active Start: 06-17-2024 End: 08-10-2024 take 1 tablet by mouth every twelve hours at mealtime glimepiride (Amaryl) 4 MG tablet Indications: Type 2 diabetes mellitus without complications (CMS/HCC) TAKE 1 TABLET BY MOUTH EVERY 12 HOURS WITH MEALS 180 tablet 1 06/17/2024 08/10/2024 Discontinued (Dose adjustment) Start: 12-19-2023 take 1 tablet by hector once daily Amaryl 2 mg Tab 2 mg = 1 tab(s), Oral, Daily, Refills(s) 0 Start Date: 12/19/23 Status: Ordered Start: 03-15-2021 take 1 tablet by hector th once daily before breakfast glimepiride (AMARYL) 2 MG tablet Indications: Controlled type 2 diabetes mellitus with hyperglycemia, without long-term current use of insulin (HCC) TAKE 1 TABLET BY MOUTH EVERY DAY BEFORE BREAKFAST 90 tablet 1 03/15/2021 Active Start: 08-24-2019 take 1 tablet by hector th once daily before breakfast glimepiride (AMARYL) 2 MG tablet Indications: Controlled type 2 diabetes mellitus with hyperglycemia, without long-term current use of insulin ([facility]) Take 1 tablet by mouth every morning (before breakfast) 30 tablet 5 08/24/2019 Active Start: 04-01-2019 take 1 tablet by hector th once daily before breakfast glimepiride (AMARYL) 2 MG tablet Indications: Controlled type 2 diabetes mellitus with hyperglycemia, without long-term current use of insulin ([facility]) Take 1 tablet by mouth every [...] 30 tablet 0 07/26/2019 Active Mucinex Active loratadine 10 mg oral tablet (4 sources) Start: 03-14-2024 End: 09-10-2024 take 1 tablet by mouth once daily loratadine (Claritin) 10 MG tablet Indications: Non-seasonal allergic rhinitis, unspecified trigger Take 1 tablet (10 mg) by mouth Daily 90 tablet 1 03/14/2024 09/10/2024 Active metFORMIN hydrochloride 1000 mg oral tablet (5 sources) Biguanide Start: 02-09-2021 take 1 tablet by mouth twice daily at mealtime metFORMIN (GLUCOPHAGE) 1000 MG tablet Indications: Controlled type 2 diabetes mellitus with hyperglycemia, without long-term current use of insulin ([facility]) TAKE 1 TABLET BY MOUTH TWICE A DAY WITH MEALS 180 tablet 1 02/09/2021 Active Start: 09-27-2019 take 1 tablet by hector th twice daily at mealtime metFORMIN (GLUCOPHAGE) 1000 MG tablet Indications: Controlled type 2 diabetes mellitus with hyperglycemia, without long-term current use of insulin ([facility]) Take 1 tablet by mouth 2 times daily (with meals) 60 tablet 5 09/27/2019 Active Start: 04-01-2019 take 1 tablet by hector th twice daily at mealtime metFORMIN (GLUCOPHAGE) 1000 MG tablet Indications: Controlled type 2 diabetes mellitus with hyperglycemia, without long-term current use of insulin ([facility]) Take 1 tablet by mouth 2 times daily (with meals) 60 tablet 5 04/01/2019 Active metFORMIN HCl Ac tive nitroglycerin 0.4 mg sublingual tablet (7 sources) Nitrate Vasodilator Start: 12-16-2019 nitroglyce rin 0.4 mg sublingual Tab 0.4 mg = 1 tab(s), SubLingual, q5min, PRN for chest pain, Refills(s) 0 Start Date: 12/19/23 Status: Ordered Nitroglycerin Ac tive omeprazole 20 mg delayed release oral capsule (10 sources) Proton Pump Inhibitor Start: 06-17-2024 take 1 capsule by mouth once daily omeprazole (PriLOSEC) [address] capsule Indications: Gastro-esophageal reflux disease without esophagitis , Esophageal reflux Take 1 capsule (20 mg) by mouth Daily 100 capsule 06/17/2024 Active Start: 12-19-2023 take 1 capsule by [facility] once daily omeprazole 20 mg Cap-DR 20 mg = 1 cap(s), Oral, Daily, Refills(s) 0 Start Date: 12/19/23 Status: Ordered Start: 03-15-2021 take 1 capsule by [facility] once daily omeprazole (PRILOSEC) 20 MG delayed release capsule TAKE 1 CAPSULE BY MOUTH EVERY DAY 90 capsule 1 03/15/2021 Active Start: 12-24-2018 take 1 capsule by [facility] once daily omeprazole (PRILOSEC) 20 MG delayed release capsule Take 1 capsule by mouth daily 90 capsule 3 12/24/2018 Active Omeprazole Activ e predniSONE 20 mg oral tablet (1 source) Start: 09-16-2021 take 1 tablet by mouth every twelve hours predniSONE 20 MG 1 tablet Orally bid for 5 day(s) Sep, Active primidone 50 mg oral tablet (6 sources) Anti-epileptic Agent Start: 12-19-2023 take 1 tablet by mouth once daily at bedtime Mysoline 50 mg Tab 50 mg = 1 tab(s), Oral, Once a day (at bedtime), Refills(s) 0 Start Date: 12/19/23 Status: Ordered Primidone Active ramipril 10 mg oral capsule (10 sources) Angiotensin Converting Enzyme Inhibitor Start: 12-19-2023 take 1 capsule by mouth once daily ramipril (Altace) 10 MG capsule Indications: Gastro-esophageal reflux disease without esophagitis , Esophageal reflux Take 1 capsule (10 mg) by mouth Daily 100 capsule 1 01/13/2024 Active Start: 02-09-2021 take 1 capsule by mo uth twice daily ramipril (ALTACE) 5 MG capsule TAKE 1 CAPSULE BY MOUTH TWICE A DAY 180 capsule 1 02/09/2021 Active Start: 12-24-2018 take 1 capsule by mo uth twice daily ramipril (ALTACE) 5 MG capsule Take 1 capsule by mouth 2 times daily 180 capsule 3 12/24/2018 Active Ramipril Active semaglutide 14 mg oral tablet (4 sources) Start: 06-17-2024 End: 12-14-2024 take 1 tablet by mouth once daily semaglutide (Rybelsus) 14 MG tablet Indications: Controlled type 2 diabetes mellitus without complication, without long-term current use of insulin (CMS/HCC) Take 1 tablet (14 mg) by mouth Daily 90 tablet 1 06/17/2024 12/14/2024 Active SITagliptin 100 mg oral tablet (4 sources) Dipeptidyl Peptidase 4 Inhibitor Start: 06-17-2024 End: 09-15-2024 take 1 tablet by mouth once daily SITagliptin (Januvia) 100 MG tablet Indications: Controlled type 2 diabetes mellitus with diabetic polyneuropathy, without long-term current use of insulin (CMS/HCC) Take 1 tablet (100 mg) by mouth Daily 90 tablet 06/17/2024 09/15/2024 Active 3 ml sodium chloride 9 mg/ml injection (2 sources) Start: 05-31-2019 sodium chlorid e flush 0.9 % injection 10 mL Start: 05-31-2019 sodium chlorid e (PF) 0.9 % injection 10 mL sotalol hydrochloride 120 mg oral tablet (10 sources) Antiarrhythmic Start: 12-19-2023 take 1 tablet by mouth twice daily sotalol 120 mg Tab 120 mg = 1 tab(s), Oral, BID, Refills(s) 0 Start Date: 12/19/23 Status: Ordered Sotalol HCl Acti ve traZODone hydrochloride 50 mg oral tablet (5 sources) Serotonin Reuptake Inhibitor Start: 08-14-2023 End: 08-08-2024 take 1 tablet by mouth at bedtime traZODone (Desyrel) 50 MG tablet Take 50 mg by mouth at bedtime 08/14/2023 Active Trelegy Ellipta 200 mcg-62.5 mcg-25 mcg/inh inhalation powder (1 source) Start: 12-19-2023 take 1 puff(s) by inhalation once daily Trelegy Ellipta 200 mcg-62.5 mcg-25 mcg/inh inhalation powder 1 puff(s), Inhalation, Daily, Refill(s) 0 Start Date: 12/19/23 Status: Ordered 7 actuat umeclidinium 0.0625 mg/actuat dry powder inhaler (4 sources) Anticholinergic take 1 puff(s) by inhalation in the morning Umeclidinium [place] (Incruse Ellipta) 62.5 MCG/ACT aerosol powder Inhale 1 puff in the morning. Active Vitamin D (1 source) Vitamin D Active Vitamin D3 1999 intl units oral Tab (1 source) Start: [...] Date Documented Date Episodic/Chronic Acute cerebrovascular disease (8 sources) Cerebral infarction; Translations: [Cerebral infarction, unspecified] Onset: 08-06-2015 08-06-2015 Chronic Cardiac dysrhythmias (12 sources) Unspecified atrial fibrillation; Translations: [Supraventricular tachycardia] Onset: 07-10-2017 08-02-2017 Chronic Chronic obstructive pulmonary disease and bronchiectasis (10 sources) Chronic obstructive lung disease; Translations: [Chronic obstructive pulmonary disease, unspecified] Onset: 03-29-2020 03-29-2020 Chronic Congestive heart failure; nonhypertensive (2 sources) Unspecified diastolic (congestive) heart failure; Translations: [Unspecified diastolic (congestive) heart failure] Onset: 05-10-2024 Chronic Coronary atherosclerosis and other heart disease (10 sources) Coronary arteriosclerosis; Translations: [Atherosclerotic heart disease of [place] coronary artery without angina pectoris] Onset: 01-20-2012 01-20-2012 Chronic Delirium, dementia, and amnestic and other cognitive disorders (9 sources) Alzheimer's disease; Translations: [Alzheimer's disease, unspecified] Onset: 05-10-2021 05-10-2021 Chronic Diabetes mellitus with complications (7 sources) Polyneuropathy due to diabetes mellitus; Translations: [Polyneuropathy due to type 2 diabetes mellitus] Onset: 2023 12-19-2023 Chronic Diabetes mellitus without complication (9 sources) Type 2 diabetes mellitus; Translations: [Type 2 diabetes mellitus without complications] Onset: 04-18-2015 08-02-2017 Chronic Disorders of lipid metabolism (14 sources) Hyperlipidemia; Translations: [Hyperlipidemia, unspecified] Onset: 08-02-2017 08-02-2017 Chronic Diverticulosis and diverticulitis (1 source) Diverticular disease 01-20-2024 Chronic Essential hypertension (11 sources) Hypertensive disorder; Translations: [Essential (primary) hypertension] Onset: 08-02-2017 08-02-2017 Chronic Glaucoma (4 sources) Glaucoma; Translations: [Unspecified glaucoma] 01-20-2012 Chronic Hypertension with complications and secondary hypertension (2 sources) Hypertensive heart disease without heart failure; Translations: [Hypertensive heart disease without heart failure] Onset: 08-02-2024 Chronic Mood disorders (4 sources) Recurrent depression; Translations: [Major depressive disorder, recurrent, unspecified] Onset: 2023 2023 Chronic Nutritional deficiencies (7 sources) Vitamin D deficiency; Translations: [Vitamin D deficiency, unspecified] Onset: 05-10-2024 12-19-2023 Chronic Other connective tissue disease (2 sources) Weakness of face muscles; Translations: [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)] Episodic Other lower respiratory disease (4 sources) Shortness of breath; Translations: [SHORTNESS OF BREATH] Onset: 11-19-2022 Episodic Other lower respiratory disease (1 source) Chronic cough 12-19-2023 Episodic Other nutritional; endocrine; and metabolic disorders (6 sources) Body mass index 40+ - severely obese; Translations: [Morbid (severe) obesity due to excess calories] Onset: 03-29-2020 03-29-2020 Chronic Other nutritional; endocrine; and metabolic disorders (1 source) Morbid obesity 12-19-2023 Chronic Other nutritional; endocrine; and metabolic disorders (4 sources) Obesity caused by energy imbalance; Translations: [Morbid (severe) obesity due to excess calories] Onset: 12-16-2023 12-16-2023 Chronic Other nutritional; endocrine; and metabolic disorders (2 sources) Severe obesity; Translations: [Class 3 severe obesity due to excess calories with serious comorbidity and body mass index (BMI) of 40.0 to 44.9 in adult ([facility])] 08-10-2024 Chronic Other screening for suspected conditions (not mental disorders or infectious disease) (10 sources) Patient encounter status; Translations: [Encounter for screening for malignant neoplasm of colon] Onset: 2023 2023 Episodic Other upper respiratory disease (5 sources) Allergic rhinitis; Translations: [Other allergic rhinitis] Onset: 12-16-2023 12-19-2023 Chronic Parkinson`s disease (4 sources) Parkinsonism; [...] Other Problems Problem Classification Problem Date Documented Date Episodic/Chronic Cardiac dysrhythmias (3 sources) Palpitations; Translations: [PALPITATIONS] Onset: 05-02-2022 Episodic Chronic obstructive pulmonary disease and bronchiectasis (1 source) Bronchitis, not specified as acute or chronic Onset: 09-16-2021 Resolved: 09-16-2021 Episodic Deficiency and other anemia (4 sources) Normocytic anemia; Translations: [Anemia, unspecified] Onset: 10-15-2023 10-15-2023 Episodic Immunizations and screening for infectious disease (1 source) Contact with and (suspected) exposure to other viral communicable diseases Onset: 09-16-2021 Resolved: 09-16-2021 Episodic Mood disorders (4 sources) Mood disorders Onset: 2023 2023 Nonspecific chest pain (8 sources) Chest pain; Translations: [Chest pain, unspecified] Onset: 04-15-2014 Resolved: 04-13-2018 04-13-2018 Episodic Open wounds of extremities (4 sources) Laceration of hand without foreign body; Translations: [Laceration without foreign body of right hand, initial encounter] Onset: 04-06-2024 04-06-2024 Episodic Other aftercare (1 source) intermediate frame tender (current) use of anticoagulants; Translations: [TRAINING 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 OFFICER CURRNT USE ANTICOAGULANTS] Onset: 05-06-2022 Episodic Other aftercare (1 source) intermediate frame tender (current) use of aspirin; Translations: [[facility] CURRENT USE OF ASPIRIN] Onset: 05-06-2022 Episodic Other aftercare (1 source) Other superintendent terminal (current) drug therapy; Translations: [OTH [facility] CURRENT DRUG THERAPY] Onset: 05-06-2022 Episodic Other circulatory disease (7 sources) H/O: atrial fibrillation; Translations: [Personal history of other diseases of the circulatory system] Onset: 08-02-2017 07-26-2019 Episodic Other circulatory disease (5 sources) History of cerebrovascular accident; Translations: [Personal history of transient ischemic attack (TIA), and cerebral infarction without residual deficits] Onset: 03-16-2024 12-19-2023 Episodic Unclassified (4 sources) Onset: 02-11-2024 02-11-2024 Results Test Name Value Interpretation Reference Range Facility 36on 08-24-2024 36 Patient called back and I informed him of message from Dr. Mendez. He will have labs on Friday, 08/30. BMP printed for patient to pick up operator, per his preference. Normal [facility] 36 Regarding lab result s from 08/20/2024: MD Dalila Trujillo MA Please have him hold Farxiga and recheck a BMP in 5 days Thanks Spoke with patient's and she will have him return my call. Normal [facility] Orders Onlyon 08-24-2024 Orders Only [id number] Sharon Guo 1950 M Date Provider Department [facility] Family History Problem Relation Age of Onset Coronary artery disease Maternal Grandmother Coronary artery disease Maternal Grandfather Cerebral aneurysm Paternal Grandmother Family Status - Relation Status Age at Maternal Grandmother Maternal Grandfather Paternal Grandmother Normal [facility] Glucose (Bld) [Mass/Vol]on 10-10-2023 Glucose Blood, POC 178 mg/dL [facility] 08-02-2024 Follow-up visit [id number] Sharon Guo 1950 M [facility] Provider Department Center 08/02/2024 CHALO GOMEZ EDU [facility] Family History Problem Relation Age of Onset Coronary artery disease Maternal Grandmother Coronary artery disease Maternal Grandfather Cerebral aneurysm Paternal Grandmother Family Status - Relation Status Age at Maternal Grandmother Maternal Grandfather Paternal Grandmother Level of Service:99994 [facility] OFFICE/OUTPATIENT ESTABLISHED MOD MDM 30 MIN Normal [facility] Office Visiton 05-10-2024 Follow-up visit [id number] Sharon Guo 1950 [facility] Provider Department Center 05/10/2024 CHALO GOMEZ EDU [facility] Family History Problem Relation Age of Onset Coronary artery disease Maternal Grandmother Coronary artery disease Maternal Grandfather Cerebral aneurysm Paternal Grandmother Family Status - Relation Status Age at Maternal Grandmother Maternal Grandfather Paternal Grandmother Level of Service:32997 [facility] OFFICE/OUTPATIENT ESTABLISHED MOD MDM 30 MIN Normal [facility] Facesheeton 01-21-2024 Facesheet [id number]. 00TIFF Normal [facility] Ambulatory Visit Summaryon 0 01-20-2024 Ambulatory Visit Summary SHARON GUO :1950 Visit Date:01/20/2024 Ambulatory Visit Instructions Your Care Team Attending Physician - SULTANA GATES, Ross Chamberlain Primary Care Physician - Kate Cabrera DO Referring Physician - DALI GATES, This Is Your Medications List Contact prescribing [...] you for choosing us for your care. [facility] Reminderson 01-20-2024 Reminders - From: Day Machado LPN To: N - Clinical; Sent: 01/20/2024 16:21:49 EDT Show up: 05/06/2029 07:00:00 EDT Subject: colonoscopy recall Due Date/Time: 05/31/2029 07:00:00 EDT Reminder/Recall Patient due for screening colonoscopy 05/2029. Normal [facility] Physician Referralon 024 Physician Referral [phone] [id number] Normal [facility] NM STRESS/REST MULTIon 11-19 NM STRESS/REST MULTI Patient: SHARON GUO Exam Date: 11/19/2022 : 1950 Gender:M Ordering : DR CHALO MENDEZ M.D. Admission #: [id number] Family : Order #: [id number] CLICK HERE TO VIEW EXAM RADIOLOGY REPORT [...] Cotter M.D. on 11/27/2022 at 15:02 Normal [facility] A1C with Estimated Average G luon 10-29-2022 Glucose [Mass/Vol] 169 mg/dL Normal [facility] Comment on above: Result Comment: PERF ORMED BY: [place] [address] PATHOLOGIST WATER PROOFER WINTER RODRIGUEZ M.D. Performed By: #### U RMACRERAT, CBC, A1C WTH eA, LIPID, CMP #### [facility] [address] [id number] [facility] HbA1c (Bld) [Mass fraction] 7.5 % High 4.3-5.6 [facility] Comment on above: Result Comment: Incr eased risk for diabetes: 5.7 - 6.4 diabetes: >6.4 glycemic control for adults with diabetes: <7.0 Performed By: #### U RMACRERAT, CBC, A1C WTH eA, LIPID, CMP #### [facility] [address] [id number] [facility] Albumin [Mass/volume] in Ser um or PlasmaOrdered By: Shaikh Dali on 10-29-2022 Albumin [Mass/Vol] 3.8 g/dL 3.2-5.5 [facility] Basophils Auto (Bld) [#/Vol] Ordered By: Shaikh Dali on 10-29-2022 Basophils (Bld) [#/Vol] 0.1 10*3/uL 0.0-0.2 [facility] Basophils/100 WBC Auto (Bld) Ordered By: Shaikh Dali on 10-29-2022 Basophils/100 WBC (Bld) 0.7 % . [facility] Cholesterol [Mass/volume] in Serum or PlasmaOrdered By: Shaikh Dali on 10-29-2022 Cholesterol [Mass/Vol] 147 mg/dL 140-200 [facility] Comment on above: Chol less than 200 m g/dl low riskChol 201-239 mg/dl borderline riskChol 240 mg/dl and greater high risk Cholesterol in LDL Calc [Mas s/Vol]Ordered By: Shaikh Dali on 10-29-2022 Cholesterol in LDL [Mass/Vol] 62 mg/dL 0-100 [facility] Comment on above: LDL ATP III CLASSIFI CATIONLDL less than 100 mg/dL OptimalLDL 100-129 mg/dL Near or above optimalLDL 130-159 mg/dL Borderline highLDL 160-189 mg/dL HighLDL greater than 189 mg/dL Very high Cholesterol in VLDL Calc [Ma ss/Vol]Ordered By: Shaikh Dali on 10-29-2022 Cholesterol in VLDL [Mass/Vol] 57 mg/dL [facility] Complete Blood Count Auto Di ffon 10-29-2022 Basophils (Bld) [#/Vol] 0.1 10*3/uL Normal 0.0-0.2 [facility] Comment on above: Result Comment: PERF ORMED BY: [place] [address] PATHOLOGIST WATER PROOFER WINTER RODRIGUEZ M.D. Performed By: #### U RMACRERAT, CBC, A1C WTH eA, LIPID, CMP #### [facility] [address] [place] [address] Basophils/100 WBC (Bld) 0.7 % Normal . [facility] Comment on above: Performed By: #### U RMACRERAT, CBC, A1C WTH eA, LIPID, CMP #### [facility] [address] [place] [address] Eosinophils (Bld) [#/Vol] 0.5 10*3/uL High 0.0-0.45 [facility] Comment on above: Performed By: #### U RMACRERAT, CBC, A1C WTH eA, LIPID, CMP #### [facility] [address] [place] [address] [place] Eosinophils/100 WBC (Bld) 5.3 % Normal . [facility] Comment on above: Performed By: #### U RMACRERAT, CBC, A1C WTH eA, LIPID, CMP #### [address] Erythrocyte distribution width (RBC) [Ratio] 13.7 % Normal 12.0-14.8 [facility] Comment on above: Performed By: #### U RMACRERAT, CBC, A1C WTH eA, LIPID, CMP #### [facility] [address] Hematocrit (Bld) [Volume fraction] 44.8 % Normal 38.8-50.0 [facility] Comment on above: Performed By: #### U RMACRERAT, CBC, A1C WTH eA, LIPID, CMP #### [facility] [address] Hemoglobin (Bld) [Mass/Vol] 14.5 g/dL Normal 13.0-17.0 [facility] Comment on above: Performed By: #### U RMACRERAT, CBC, A1C WTH eA, LIPID, CMP #### [address] Lymphocytes (Bld) [#/Vol] 2.1 10*3/uL Normal 1.00-4.8 [facility] Comment on above: Performed By: #### U RMACRERAT, CBC, A1C WTH eA, LIPID, CMP #### [address] Lymphocytes/100 WBC (Bld) 21.4 % Normal . [facility] Comment on above: Performed By: #### U RMACRERAT, CBC, A1C WTH eA, LIPID, CMP #### [address] MCH (RBC) [Entitic mass] 27.5 pg Normal 27.5-35.2 [facility] Comment on above: Performed By: #### U RMACRERAT, CBC, A1C WTH eA, LIPID, CMP #### [address] MCV (RBC) [Entitic vol] 84.7 fL Normal 83.5-[address] [facility] Comment on above: Performed By: #### U RMACRERAT, CBC, A1C WTH eA, LIPID, CMP #### [address] Mean Corpuscular HGB Conc 32.5 g/dL Normal 32.5-35.6 [facility] Comment on above: Performed By: #### U RMACRERAT, CBC, A1C WTH eA, LIPID, CMP #### [facility] [address] [place] [address] [place] Monocytes (Bld) [#/Vol] 0.7 10*3/uL Normal 0.0-0.8 [facility] Comment on above: Performed By: #### U RMACRERAT, CBC, A1C WTH eA, LIPID, CMP #### [facility] [address] [place] [address] [place] Monocytes/100 WBC (Bld) 7.2 % Normal . [facility] Comment on above: Performed By: #### U RMACRERAT, CBC, A1C WTH eA, LIPID, CMP #### [facility] [address] [place] [address] [place] Neutrophils (Bld) [#/Vol] 6.4 10*3/uL Normal 1.8-7.7 [facility] Comment on above: Performed By: #### U RMACRERAT, CBC, A1C WTH eA, LIPID, CMP #### [facility] [address] [place] [address] [place] Neutrophils/100 WBC (Bld) 65.4 % Normal . [facility] Comment on above: Performed By: #### U RMACRERAT, CBC, A1C WTH eA, LIPID, CMP #### [facility] [address] [place] [address] [place] NRBC% 0.2 /100{WBC} Normal 0-0.5 [facility] Comment on above: Performed By: #### U RMACRERAT, CBC, A1C WTH eA, LIPID, CMP #### [facility] [address] [place] [address] [place] Platelet mean volume (Bld) [Entitic vol] 10.2 fL High 6.6-10.1 [facility] Comment on above: Performed By: #### U RMACRERAT, CBC, A1C WTH eA, LIPID, CMP #### [facility] [address] [place] [address] [place] Platelets (Bld) [#/Vol] 235 10*3/uL Normal 150-450 [facility] Comment on above: Performed By: #### U RMACRERAT, CBC, A1C WTH eA, LIPID, CMP #### [facility] [address] RBC (Bld) [#/Vol] 5.28 10*6/uL Normal 3.90-5.60 [facility] Comment on above: Performed By: #### U RMACRERAT, CBC, A1C WTH eA, LIPID, CMP #### [facility] [address] WBC (Bld) [#/Vol] 9.8 10*3/uL Normal 4.1-10.5 [facility] Comment on above: Performed By: #### U RMACRERAT, CBC, A1C WTH eA, LIPID, CMP #### [facility] [address] Comprehensive Metabolic Pane concha 10-29-2022 Albumin [Mass/Vol] 3.8 g/dL Normal 3.2-5.5 [facility] Comment on above: Performed By: #### U RMACRERAT, CBC, A1C WTH eA, LIPID, CMP #### [facility] [address] Albumin/Globulin [Mass ratio] 1.3 {ratio} Normal [facility] Comment on above: Performed By: #### U RMACRERAT, CBC, A1C WTH eA, LIPID, CMP #### [facility] [address] ALP [Catalytic activity/Vol] 73 U/L Normal 32-92 [facility] Comment on above: Performed By: #### U RMACRERAT, CBC, A1C WTH eA, LIPID, CMP #### [facility] [address] ALT [Catalytic activity/Vol] 42 U/L Normal 10-60 [facility] Comment on above: Performed By: #### U RMACRERAT, CBC, A1C WTH eA, LIPID, CMP #### [facility] [address] Anion gap [Moles/Vol] 14.2 mmol/L Normal 6.0-15.0 [facility] Comment on above: Performed By: #### U RMACRERAT, CBC, A1C WTH eA, LIPID, CMP #### [facility] [address] AST [Catalytic activity/Vol] 53 U/L High 10-42 [facility] Comment on above: Performed By: #### U RMACRERAT, CBC, A1C WTH eA, LIPID, CMP #### [facility] [address] Bilirubin [Mass/Vol] 0.6 mg/dL Normal 0.3-1.2 [facility] Comment on above: Performed By: #### U RMACRERAT, CBC, A1C WTH eA, LIPID, CMP #### [facility] [address] Calcium [Mass/Vol] 9.2 mg/dL Normal 8.2-10.2 [facility] Comment on above: Performed By: #### U RMACRERAT, CBC, A1C WTH eA, LIPID, CMP #### [facility] [address] [place] [address] Chloride [Moles/Vol] 99 mmol/L Normal 95-114 [facility] Comment on above: Performed By: #### U RMACRERAT, CBC, A1C WTH eA, LIPID, CMP #### [facility] [address] [place] [address] CO2 [Moles/Vol] 27.4 mmol/L Normal 22.0-30.0 [facility] Comment on above: Performed By: #### U RMACRERAT, CBC, A1C WTH eA, LIPID, CMP #### [facility] [address] [place] [address] Creatinine [Mass/Vol] 1.00 mg/dL Normal 0.64-1.27 [facility] Comment on above: Performed By: #### U RMACRERAT, CBC, A1C WTH eA, LIPID, CMP #### [facility] [address] Estimated GFR ( Felipa > [address] [facility] Comment on above: Result Comment: GFR estimated reference range: According to KDOQI guidelines, <60 ml/min/1.73m2 is sufficient to diagnose a patient with chronic kidney disease. Performed By: #### U RMACRERAT, CBC, A1C WTH eA, LIPID, CMP #### [facility] [address] Estimated GFR (Non- Am > [address] [facility] Comment on above: Performed By: #### U RMACRERAT, CBC, A1C WTH eA, LIPID, CMP #### [facility] [address] Globulin (S) [Mass/Vol] 2.9 g/dL Normal [facility] Comment on above: Performed By: #### U RMACRERAT, CBC, A1C WTH eA, LIPID, CMP #### [address] Glucose [Mass/Vol] 145 mg/dL High 70-100 [facility] Comment on above: Result Comment: [place] Glucose Reference Range is dependent on time and content of last meal. Glucose of more than 200 mg/dL in a nonstressed, ambulatory subject supports the diagnosis of Diabetes Mellitus. ADA recommended reference range Performed By: #### U RMACRERAT, CBC, A1C WTH eA, LIPID, CMP #### [address] Potassium [Moles/Vol] 4.6 mmol/L Normal 3.5-5.1 [facility] Comment on above: Performed By: #### U RMACRERAT, CBC, A1C WTH eA, LIPID, CMP #### [address] Protein [Mass/Vol] 6.7 g/dL Normal 6.1-7.9 [facility] Comment on above: Performed By: #### U RMACRERAT, CBC, A1C WTH eA, LIPID, CMP #### [facility] [address] [place] [address] [place] Sodium [Moles/Vol] 136 mmol/L Normal 136-146 [facility] Comment on above: Performed By: #### U RMACRERAT, CBC, A1C WTH eA, LIPID, CMP #### [facility] [address] [place] [address] [place] Urea nitrogen [Mass/Vol] 15 mg/dL Normal 9-23 [facility] Comment on above: Performed By: #### U RMACRERAT, CBC, A1C WTH eA, LIPID, CMP #### [facility] [address] [id number] [place] Creatinine [Mass/volume] in UrineOrdered By: Shaikh Dali on 10-29-2022 Creatinine (U) [Mass/Vol] 166.9 mg/dL [facility] Comment on above: No reference range e stablished Creatinine and Glomerular fi ltration rate.predicted panel (S/P/Bld)Ordered By: Shaikh Dali on 10-29-2022 Creatinine [Mass/Vol] 1.00 mg/dL 0.64-1.27 [facility] Eosinophils Auto (Bld) [#/Vo l]Ordered By: Shaikh Dali on 10-29-2022 Eosinophils (Bld) [#/Vol] 0.5 10*3/uL 0.0-0.45 [facility] Eosinophils/100 WBC Auto (Bl d)Ordered By: Shaikh Dali on 10-29-2022 Eosinophils/100 WBC (Bld) 5.3 % . [facility] Erythrocyte distribution wid th Auto (RBC) [Ratio]Ordered By: Shaikh Dali on 10-29-2022 Erythrocyte distribution width (RBC) [Ratio] 13.7 % 12.0-14.8 [facility] Estimated glomerular filtrat ion rate (GFR) non- AmericanOrdered By: Shaikh Dali on 10-29-2022 GFR/1.73 sq M.predicted among non-blacks MDRD (S/P/Bld) [Vol rate/Area] > 60 mL/Min [facility] Globulin Calc (S) [Mass/Vol] Ordered By: Shaikh Dali on 10-29-2022 Globulin (S) [Mass/Vol] 2.9 g/dL [facility] Glucose mean value [Mass/vol ume] in Blood Estimated from glycated hemoglobinOrdered By: Shaikh Dali on 10-29-2022 Average glucose Estimated from glycated hemoglobin (Bld) [Mass/Vol] 169 mg/dL [facility] Hematocrit Auto (Bld) [Volum e fraction]Ordered By: Shaikh Dali on 10-29-2022 Hematocrit (Bld) [Volume fraction] 44.8 % 38.8-50.0 [facility] Hemoglobin A1c percentageOrd ered By: Shaikh Dali on 10-29-2022 HbA1c (Bld) [Mass fraction] 7.5 % 4.3-5.6 [facility] Comment on above: Increased risk for d iabetes: 5.7 - 6.4diabetes: >6.4glycemic control for adults with diabetes: <7.0 Hemoglobin [Mass/volume] in BloodOrdered By: Shaikh Dali on 10-29-2022 Hemoglobin (Bld) [Mass/Vol] 14.5 g/dL 13.0-17.0 [facility] Leukocytes [#/volume] correc wiley for nucleated erythrocytes in Blood by Automated counOrdered By: Shaikh Dali on 10-29-2022 WBC corrected for nucl RBC Auto (Bld) [#/Vol] 9.8 10*3/uL 4.1-10.5 [facility] Lipid Panelon 10-29-2022 Cholesterol [Mass/Vol] 147 mg/dL Normal 140-200 [facility] Comment on above: Result Comment: Chol less than 200 mg/dl low risk Chol 201-239 mg/dl borderline risk Chol 240 mg/dl and greater high risk Performed By: #### U RMACRERAT, CBC, A1C WTH eA, LIPID, CMP #### [facility] [address] Cholesterol in HDL [Mass/Vol] 28 mg/dL Low 29-71 [facility] Comment on above: Result Comment: HDL CHOL ATP-III CLASSIFICATION Cardiovascular Risk HDL > or equal to 60 mg/dL LOW HDL < 40 mg/dL HIGH Performed By: #### U RMACRERAT, CBC, A1C WTH eA, LIPID, CMP #### [facility] [address] Cholesterol.total/Apple sterol in HDL [Mass ratio] 5.3 {ratio} Normal <5.0 [facility] Comment on above: Result Comment: PERF ORMED BY: [facility] [address] [place] [address] PATHOLOGIST WATER PROOFER WINTER RODRIGUEZ M.D. Performed By: #### U RMACRERAT, CBC, A1C WTH eA, LIPID, CMP #### [facility] [address] LDL Cholesterol,Calculated 62 mg/dL Normal 0-100 [facility] Comment on above: Result Comment: LDL ATP III CLASSIFICATION LDL less than 100 mg/dL Optimal LDL 100-129 mg/dL Near or above optimal LDL 130-159 mg/dL Borderline high LDL 160-189 mg/dL High LDL greater than 189 mg/dL Very high Performed By: #### U RMACRERAT, CBC, A1C WTH eA, LIPID, CMP #### [facility] [address] Triglyceride w/Reflex 285 mg/dL High 35-149 [facility] Comment on above: Result Comment: TRIG ATP III CLASSIFICATION TRIG less than 150 mg/dL Normal TRIG 150-199 mg/dL Borderline high TRIG 200-500 mg/dL High TRIG greater than 500 mg/dL Very high Standard traceable to the Center for Disease Conrtrol and Prevention (CDC) test method. Performed By: #### U RMACRERAT, CBC, A1C WTH eA, LIPID, CMP #### [facility] [address] VLDL CHOLESTEROL 57 mg/dL Normal [facility] Comment on above: Performed By: #### U RMACRERAT, CBC, A1C WTH eA, LIPID, CMP #### [facility] [address] Lymphocytes Auto (Bld) [#/Vo l]Ordered By: Shaikh Dali on 10-29-2022 Lymphocytes (Bld) [#/Vol] 2.1 10*3/uL 1.00-4.8 [facility] Lymphocytes/100 WBC Auto (Bl d)Ordered By: Shaikh Dali on 10-29-2022 Lymphocytes/100 WBC (Bld) 21.4 % . [facility] MCH Auto (RBC) [Entitic mass ]Ordered By: Shaikh Dali on 10-29-2022 MCH (RBC) [Entitic mass] 27.5 pg 27.5-35.2 [facility] MCHC Auto (RBC) [Mass/Vol]Or dered By: Shaikh Dali on 10-29-2022 MCHC (RBC) [Mass/Vol] 32.5 g/dL 32.5-35.6 [facility] MCV Auto (RBC) [Entitic vol] Ordered By: Shaikh Dali on 10-29-2022 MCV (RBC) [Entitic vol] 84.7 fL 83.5-[address] [facility] MicroAlb Creat Ratio,Uon Albumin DL <= 20 mg/L (U) [Mass/Vol] 18.7 mg/dL High 0.0-1.8 [facility] Comment on above: Performed By: #### U RMACRERAT, CBC, A1C WTH eA, LIPID, CMP #### [facility] [address] Creatinine, Urine (Random) 166.9 mg/dL Normal [facility] Comment on above: Result Comment: No r eference range established Performed By: #### U RMACRERAT, CBC, A1C WTH eA, LIPID, CMP #### [facility] [address] Microalbumin/Creatinine Ratio 112.0 mg/g High 0.0-30.0 [facility] Comment on above: Result Comment: 30-3 00 mg/g indicates an increased risk for diabetic nephropathy. Greater than 300 mg/g is consistent with clinical nephropathy. (Am. J. Kidney Disease 1995, 25:107) PERFORMED BY: [facility] [address] [place] [address] PATHOLOGIST WATER PROOFER WINTER RODRIGUEZ M.D. Performed By: #### U RMACRERAT, CBC, A1C WTH eA, LIPID, CMP #### [facility] [address] Monocytes Auto (Bld) [#/Vol] Ordered By: Shaikh Dali on 10-29-2022 Monocytes (Bld) [#/Vol] 0.7 10*3/uL 0.0-0.8 [facility] Monocytes/100 WBC Auto (Bld) Ordered By: Shaikh Dali on 10-29-2022 Monocytes/100 WBC (Bld) 7.2 % . [facility] Neutrophils Auto (Bld) [#/Vo l]Ordered By: Shaikh Dali on 10-29-2022 Neutrophils (Bld) [#/Vol] 6.4 10*3/uL 1.8-7.7 [facility] Neutrophils/100 WBC Auto (Bl d)Ordered By: Shaikh Dali on 10-29-2022 Neutrophils/100 WBC (Bld) 65.4 % . [facility] No Panel InformationOrdered By: Shaikh Dali on 10-29-2022 Estimated GFR () > 60 mL/Min [facility] Comment on above: GFR estimated refere nce range: According to KDOQI guidelines, <60 ml/min/1.73m2 is sufficient to diagnose a patient with chronic kidney disease. Pharmacy Creatinine Clearance (Chem N/A [facility] Nucleated erythrocytes [Pres ence] in Blood by Automated countOrdered By: Shaikh Dali on 10-29-2022 Nucleated RBC Auto Ql (Bld) 0.2 /100{WBC} 0-0.5 [facility] Platelet mean volume Auto (B ld) [Entitic vol]Ordered By: Shaikh Dali on 10-29-2022 Platelet mean volume (Bld) [Entitic vol] 10.2 fL 6.6-10.1 [facility] Platelets Auto (Bld) [#/Vol] Ordered By: Shaikh Dali on 10-29-2022 Platelets (Bld) [#/Vol] 235 10*3/uL 150-450 [facility] Protein [Mass/volume] in Ser um or PlasmaOrdered By: Shaikh Dali on 10-29-2022 Protein [Mass/Vol] 6.7 g/dL 6.1-7.9 [facility] RBC Auto (Bld) [#/Vol]Ordere d By: Shaikh Dali on 10-29-2022 RBC (Bld) [#/Vol] 5.28 10*6/uL 3.90-5.60 [facility] Serum or plasma alanine [place] otransferase measurement without P-5'-P (enzymatic activiOrdered By: Shaikh Dali on 10-29-2022 ALT No additional P-5'-P [Catalytic activity/Vol] 42 U/L [facility] Serum or plasma albumin/glob ulin mass ratioOrdered By: Shaikh Dali on 10-29-2022 Albumin/Globulin [Mass ratio] 1.3 {ratio} [facility] Serum or plasma alkaline julia sphatase measurement (enzymatic activity/volume)Ordered By: Shaikh Dali on 10-29-2022 ALP [Catalytic activity/Vol] 73 U/L 32-92 [facility] Serum or plasma anion gap de terminationOrdered By: Shaikh Dali on 10-29-2022 Anion gap [Moles/Vol] 14.2 mmol/L 6.0-15.0 [facility] Serum or plasma aspartate am inotransferase measurement (enzymatic activity/volume)Ordered By: Shaikh Dali on 10-29-2022 AST [Catalytic activity/Vol] 53 U/L [facility] Serum or plasma calcium david urement (mass/volume)Ordered By: Shaikh Dali on 10-29-2022 Calcium [Mass/Vol] 9.2 mg/dL 8.2-10.2 [facility] Serum or plasma chloride traci surement (moles/volume)Ordered By: Shaikh Dali on 10-29-2022 Chloride [Moles/Vol] 99 mmol/L 95-114 [facility] Serum or plasma glucose david urement (mass/volume)Ordered By: Shaikh Dali on 10-29-2022 Glucose [Mass/Vol] 145 mg/dL 70-100 [facility] Comment on above: ADA recommended refe rence rangeRandom Glucose Reference Range is dependent on time and content of last meal. Glucose of more than 200 mg/dL in a nonstressed, ambulatory subject supports the diagnosis of Diabetes Mellitus. Serum or plasma high density lipoprotein (HDL) cholesterol measurementOrdered By: Shaikh Dali on 10-29-2022 Cholesterol in HDL [Mass/Vol] 28 mg/dL 29-71 [facility] Comment on above: HDL CHOL ATP-III CLA SSIFICATION Cardiovascular RiskHDL > or equal to 60 mg/dL LOWHDL < 40 mg/dL HIGH Serum or plasma potassium me asurement (moles/volume)Ordered By: Shaikh Dali on 10-29-2022 Potassium [Moles/Vol] 4.6 mmol/L 3.5-5.1 [facility] Serum or plasma sodium measu rement (moles/volume)Ordered By: Shaikh Dali on 10-29-2022 Sodium [Moles/Vol] 136 mmol/L 136-146 [facility] Serum or plasma total biliru bin measurement (mass/volume)Ordered By: Shaikh Dali on 10-29-2022 Bilirubin [Mass/Vol] 0.6 mg/dL 0.3-1.2 [facility] Serum or plasma total carbon dioxide measurement (moles/volume)Ordered By: Shaikh Dali on 10-29-2022 CO2 [Moles/Vol] 27.4 mmol/L 22.0-30.0 [facility] Serum or plasma total choles terol/high density lipoprotein (HDL) cholesterol mass ratOrdered By: Shaikh Dali on 10-29-2022 Cholesterol.total/Apple sterol in HDL [Mass ratio] 5.3 {ratio} <5.0 [facility] Serum or plasma urea nitroge n measurement (mass/volume)Ordered By: Shaikh Dali on 10-29-2022 Urea nitrogen [Mass/Vol] 15 mg/dL 9- [facility] Triglyceride [Mass/volume] i n Serum or PlasmaOrdered By: Shaikh Dali on 10-29-2022 Triglyceride [Mass/Vol] 285 mg/dL 35-[address] [facility] Comment on above: TRIG ATP III [...] 20 mg/L (U) [Mass/Vol] 18.7 mg/dL 0.0-1.8 [facility] Urine microalbumin/creatinin e mass ratioOrdered By: Shaikh Dali on 10-29-2022 Albumin/Creatinine DL <= 20 mg/L (U) [Mass ratio] 112.0 mg/g 0.0-30.0 [facility] Comment on above: 30-300 mg/g indicate s an increased risk for diabetic nephropathy. Greater than 300 mg/g is consistent with clinical nephropathy. (Am. J. Kidney Disease 1995, 25:107) WBC Auto (Bld) [#/Vol]Ordere d By: Shaikh Dali on 10-29-2022 WBC (Bld) [#/Vol] 9.8 10*3/uL 4.1-10.5 [facility] CARDIAC SARAH ADMITon 022 CK [Catalytic activity/Vol] 100 U/L Normal 39-308 [facility] Comment on above: Performed By: #### C PENNY, CMP #### [facility] [address] [address] [address] Tracy Gutierrez CK.MB [Mass/Vol] 1.18 ng/mL Normal <=3.60 [facility] Comment on above: Performed By: #### C MADM, CMP #### [facility] [address] [address] [address] Tracy Gutierrez HSTROP 11.3 pg/mL Normal 4.0-76.1 [facility] Comment on above: Result Comment: CUT- OFF POINTS HAVE BEEN ESTABLISHED BASED ON THE FOURTH UNIVERSAL DEFINITIONS OF MYOCARDIAL INFARCTION. THE UPPER REFERENCE LIMIT (URL) OF TROPONIN, DEFINED THE 99TH PERCENTILE OF cTnI DISTRIBUTION IN A REFERENCE POPULATION, HAS BEEN CONFIRMED THE DECISION THRESHOLD FOR PA DIAGNOSIS. Performed By: #### C MADM, CMP #### [facility] [address] [address] [address] Tracy Gutierrez ERIN 60 ng/mL Normal 16-96 [facility] Comment on above: Performed By: #### C RICKIEM, CMP #### [facility] [address] [place] [address] Dr. Tracy Gutierrez CBC AUTO DIFFon 05-02-2022 BASO # 0.1 103/ul Normal 0.0-0.1 [facility] Comment on above: Performed By: #### C BC #### [facility] [address] [place] [address] Dr. Tracy Gutierrez Basophils/100 WBC (Bld) 0.6 % Normal 0.2-2.0 [facility] Comment on above: Performed By: #### C BC #### [facility] [address] [place] [address] Dr. Tracy Gutierrez EO # 0.4 103/ul Normal 0.0-0.7 [facility] Comment on above: Performed By: #### C BC #### [facility] [address] [address] [address] Tracy Gutierrez Eosinophils/100 WBC (Bld) 4.1 % Normal 0.9-7.0 [facility] Comment on above: Performed By: #### C BC #### [facility] [address] [place] [address] Dr. Tracy Gutierrez Erythrocyte distribution width (RBC) [Ratio] 12.7 % Normal 11.0-15.0 [facility] Comment on above: Performed By: #### C BC #### [facility] [address] [address] [address] Tracy Gutierrez Hematocrit (Bld) [Volume fraction] 44.9 % Normal 42.0-54.0 [facility] Comment on above: Performed By: #### C BC #### [facility] [address] [address] [address] Tracy Gutierrez Hemoglobin (Bld) [Mass/Vol] 14.5 g/dL Normal 14.0-18.0 [facility] Comment on above: Performed By: #### C BC #### [facility] [address] [place] [address] Dr. Tracy Gutierrez IG # 0.04 10e3/ul Critically high 0.00-0.03 [facility] Comment on above: Performed By: #### C BC #### [facility] [address] [place] [address] Dr. Tracy Gutierrez IG % 0.4 % Normal 0.0-0.5 [facility] Comment on above: Performed By: #### C BC #### [facility] [address] [place] [address] Dr. Tracy Gutierrez LYMPH # 2.1 103/ul Normal 1.2-3.8 [facility] Comment on above: Performed By: #### C BC #### [facility] [address] [place] [address] Dr. Tracy Gutierrez Lymphocytes/100 WBC (Bld) 20.8 % Normal 20.5-60.0 [facility] Comment on above: Performed By: #### C BC #### [facility] [address] [place] [address] Dr. Tracy Gutierrez MANUAL DIFF REQ NO Normal [facility] Comment on above: Performed By: #### C BC #### [facility] [address] [place] [address] Dr. Tracy Gutierrez MCH (RBC) [Entitic mass] 27.9 pg Normal 25.9-34.0 [facility] Comment on above: Performed By: #### C BC #### [facility] [address] [address] [address] Tracy Gutierrez MCHC (RBC) [Mass/Vol] 32.3 g/dL Normal 29.9-35.2 [facility] Comment on above: Performed By: #### C BC #### [facility] [address] [address] [address] Tracy Gutierrez MCV (RBC) [Entitic vol] 86.3 fL Normal 80.0-94.0 [facility] Comment on above: Performed By: #### C BC #### [facility] [address] [address] [address] Tracy Gutierrez MONO # 0.7 103/ul Normal 0.3-0.8 [facility] Comment on above: Performed By: #### C BC #### [facility] [address] [place] [address] Dr. Tracy Gutierrez Monocytes/100 WBC (Bld) 7.2 % Normal 1.7-12.0 [facility] Comment on above: Performed By: #### C BC #### [facility] [address] [place] [address] Dr. Tracy Gutierrez NEUT # 6.9 103/ul Critically high 1.4-6.5 [facility] Comment on above: Performed By: #### C BC #### [facility] [address] [place] [address] Dr. Tracy Gutierrez Neutrophils/100 WBC (Bld) 66.9 % Normal 43.0-75.0 [facility] Comment on above: Performed By: #### C BC #### [facility] [address] [place] [address] Dr. Tracy Gutierrez Platelet mean volume (Bld) [Entitic vol] 11.1 fL Normal 9.5-13.5 [facility] Comment on above: Performed By: #### C BC #### [facility] [address] [place] [address] Dr. Tracy Gutierrez PLT 237 103/ul Normal 150-450 [facility] Comment on above: Performed By: #### C BC #### [facility] [address] [address] [address] Tracy Gutiererz RBC 5.20 106/ul Normal 4.70-6.10 [facility] Comment on above: Performed By: #### C BC #### [facility] [address] [address] [address] Tracy Gutierrez WBC 10.3 103/ul Normal 4.0-11.0 [facility] Comment on above: Performed By: #### C BC #### [facility] [address] [place] [address] Dr. Tracy Gutierrez PROF 14(COMP METB)on 022 Albumin [Mass/Vol] 3.7 g/dL Normal 3.4-5.0 [facility] Comment on above: Performed By: #### C PENNY, CMP #### [facility] [address] [place] [address] Dr. Tracy Gutierrez Albumin/Globulin [Mass ratio] 0.9 {ratio} Normal [facility] Comment on above: Performed By: #### C PENNY, CMP #### [facility] [address] [place] [address] Dr. Tracy Gutierrez ALP [Catalytic activity/Vol] 77 U/L Normal 46-116 [facility] Comment on above: Performed By: #### C PENNY, CMP #### [facility] [address] [place] [address] Dr. Tracy Gutierrez ALT [Catalytic activity/Vol] 46 U/L Normal 16-63 [facility] Comment on above: Performed By: #### C RICKIEM, CMP #### [facility] [address] [place] [address] Dr. Tracy Gutierrez Anion gap [Moles/Vol] 10.7 mmol/L Normal [facility] Comment on above: Performed By: #### C RICKIEM, CMP #### [facility] [address] [place] [address] Dr. Tracy Gutierrez AST [Catalytic activity/Vol] 40 U/L Critically high 15-37 [facility] Comment on above: Performed By: #### C RICKIEM, CMP #### [facility] [address] [address] [address] Tracy Gutierrez Bilirubin [Mass/Vol] 0.5 mg/dL Normal 0.2-1.0 [facility] Comment on above: Performed By: #### C MADM, CMP #### [facility] [address] [place] [address] Dr. Tracy Gutierrez Calcium [Mass/Vol] 9.4 mg/dL Normal 8.5-10.1 [facility] Comment on above: Performed By: #### C MADM, CMP #### [facility] [address] [place] [address] Dr. Tracy Gutierrez Chloride [Moles/Vol] 102 mmol/L Normal 98-107 [facility] Comment on above: Performed By: #### C MADM, CMP #### [facility] [address] [place] [address] Dr. Tracy Gutierrez CO2 [Moles/Vol] 29.6 mmol/L Normal 21.0-32.0 [facility] Comment on above: Performed By: #### C MADM, CMP #### [facility] [address] [place] [address] Dr. Tracy Gutierrez Creatinine [Mass/Vol] 1.14 mg/dL Normal 0.70-1.30 [facility] Comment on above: Performed By: #### C MADM, CMP #### [facility] [address] [place] [address] Dr. Tracy Gutierrez EGFR-AF RUSSIAN >60 Normal >=60 [facility] Comment on above: Performed By: #### C MADM, CMP #### [facility] [address] [place] [address] Dr. Tracy Gutierrez EGFR-NON AF RUSSIAN >60 Normal >=60 [facility] Comment on above: Performed By: #### C MADM, CMP #### [facility] [address] [place] [address] Dr. Tracy Gutierrez Globulin (S) [Mass/Vol] 4.1 g/dL Normal T [facility] Comment on above: Performed By: #### C MADM, CMP #### [facility] [address] [address] [address] Tracy Gutierrez Glucose [Mass/Vol] 203 mg/dL Critically high 74-106 [facility] Comment on above: Performed By: #### C MADM, CMP #### [facility] [address] [address] [address] Tracy Gutierrez Potassium [Moles/Vol] 4.3 mmol/L Normal 3.5-5.1 [facility] Comment on above: Performed By: #### C MADM, CMP #### [facility] [address] [address] [address] Tracy Gutierrez Protein [Mass/Vol] 7.8 g/dL Normal 6.4-8.2 [facility] Comment on above: Performed By: #### C RICKIEM, CMP #### [facility] [address] [place] [address] Dr. Tracy Gutierrez Sodium [Moles/Vol] 138 mmol/L Normal 136-145 [facility] Comment on above: Performed By: #### C RICKIEM, CMP #### [facility] [address] [address] [address] Tracy Gutierrez Urea nitrogen [Mass/Vol] 16.0 mg/dL Normal 7.0-18.0 [facility] Comment on above: Performed By: #### C RICKIEM, CMP #### [facility] [address] [place] [address] Dr. Tracy Gutierrez Urea nitrogen/Creatinine [Mass ratio] 14.0 mg/mg Normal [facility] Comment on above: Performed By: #### C RICKIEM, CMP #### [facility] [address] [place] [address] Dr. Tracy Gutierrez XR CHEST 1 Von [...] not changed significantly. Electronically authenticated by: NIKUNJ PINO Date: 2022-05-02 16:53 Normal [facility] Comp Metabolic Profon 2020 (cont.) Normal [facility] Comment on above: Result Comment: Aver age GFR for 70 or more years old: 75 mL/min/1.73sq m Chronic Kidney Disease: <60 mL/min/1.73sq m Kidney failure: <15 mL/min/1.73sq m eGFR calculated using average adult body mass. Additional eGFR calculator available at: http://www.Inoapps/multiple_crcl_2011.htm Performed By: #### Randall FAST, CP #### [facility] [address] [place], [place] [phone] Brake Drum Molder: Abisai Tellez MD #### LIPR #### [facility] [address] [place], [place] [phone] Brake Drum Molder: Shaheed Alcocer MD Albumin [Mass/Vol] 4.1 g/dL Normal 3.5-5.2 [facility] Comment on above: Performed By: #### Randall FAST, CP #### [facility] [address] [place], [place] [phone] Brake Drum Molder: Abisai Tellez MD #### LIPR #### [facility] [address] [place] [address] Brake Drum Molder: Shaheed Alcocer MD Alkaline Phos 78 U/L Normal 40-129 [facility] Comment on above: Performed By: #### Randall FAST, CP #### [facility] [address] [place], [place] [phone] Brake Drum Molder: Abisai Tellez MD #### LIPR #### [facility] [address] [place] [phone] Brake Drum Molder: Shaheed Alcocer MD ALT [Catalytic activity/Vol] 34 U/L Normal 5-41 [facility] Comment on above: Performed By: #### Randall FAST, CP #### [facility] [address] [place] [address] Brake Drum Molder: Abisai Tellez MD #### LIPR #### [address] [phone] Brake Drum Molder: Shaheed Alcocer MD Anion gap [Moles/Vol] 12 mmol/L Normal 9-17 [facility] Comment on above: Performed By: #### Randall FAST, CP #### [facility] [address] [place], [place] [phone] Brake Drum Molder: Abisai Tellez MD #### LIPR #### [address] [phone] Brake Drum Molder: Shaheed Alcocer MD AST [Catalytic activity/Vol] 28 U/L Normal <40 [facility] Comment on above: Performed By: #### Randall FAST, CP #### [facility] [address] [place], [place] [phone] Brake Drum Molder: Abisai Tellez MD #### LIPR #### [address] [phone] Brake Drum Molder: Shaheed Alcocer MD Bilirubin [Mass/Vol] 0.31 mg/dL Normal 0.30-1.20 [facility] Comment on above: Performed By: #### Randall FAST, CP #### [facility] [address] [place] [address] Brake Drum Molder: Abisai Tellez MD #### LIPR #### [address] [address] Brake Drum Molder: Shaheed Alcocer MD BUN/CRE Ratio 23 High 9-20 [facility] Comment on above: Performed By: #### Randall FAST, CP #### [facility] [address] [place], [place] [phone] Brake Drum Molder: Abisai Tellez MD #### LIPR #### [facility] [address] [place] [phone] Brake Drum Molder: Shaheed Alcocer MD Calcium [Mass/Vol] 8.9 mg/dL Normal 8.6-10.4 [facility] Comment on above: Performed By: #### Randall FAST, CP #### [facility] [address] [place], [place] [phone] Brake Drum Molder: Abisai Tellez MD #### LIPR #### [address] [phone] Brake Drum Molder: Shaheed Alcocer MD Chloride [Moles/Vol] 96 mmol/L Low 98-107 [facility] Comment on above: Performed By: #### Randall FAST, CP #### [facility] [address] [place], [place] [phone] Brake Drum Molder: Abisai Tellez MD #### LIPR #### [address] [address] Brake Drum Molder: Shaheed Alcocer MD CO2 [Moles/Vol] 25 mmol/L Normal 20-31 [facility] Comment on above: Performed By: #### Randall FAST, CP #### [facility] [address] [place], [place] [phone] Brake Drum Molder: Abisai Tellez MD #### LIPR #### [address] [address] Brake Drum Molder: Shaheed Alcocer MD Creatinine [Mass/Vol] 0.96 mg/dL Normal 0.70-1.20 [facility] Comment on above: Performed By: #### Randall FAST, CP #### [facility] [address] [place], [place] [phone] Brake Drum Molder: Abisai Tellez MD #### LIPR #### [facility] [address] [place] [address] Brake Drum Molder: Shaheed Alcocer MD GFR, Amer >60 Normal >60 [facility] Comment on above: Performed By: #### Z FAST, CP #### [facility] [address] [place], [place] [phone] Brake Drum Molder: Abisai Tellez MD #### LIPR #### [address] [address] Brake Drum Molder: Shaheed Alcocer MD GFR,non Amer >60 Normal >60 [facility] Comment on above: Performed By: #### Randall FAST, CP #### [facility] [address] [place] [address] Brake Drum Molder: Abisai Tellez MD #### LIPR #### [address] [address] Brake Drum Molder: Shaheed Alcocer MD Glucose [Mass/Vol] 157 mg/dL High 70-99 [facility] Comment on above: Performed By: #### Z FAST, CP #### [facility] [address] [place] [address] Brake Drum Molder: Abisai Tellez MD #### LIPR #### [address] [address] Brake Drum Molder: Shaheed Alcocer MD Potassium [Moles/Vol] 4.7 mmol/L Normal 3.7-5.3 [facility] Comment on above: Performed By: #### Z FAST, CP #### [facility] [address] [place] [address] Brake Drum Molder: Abisai Tellez MD #### LIPR #### [address] [place] [address] Brake Drum Molder: Shaheed Alcocer MD Protein [Mass/Vol] 7.4 g/dL Normal 6.4-8.3 [facility] Comment on above: Performed By: #### Randall FAST, CP #### [facility] [address] [place] [address] Brake Drum Molder: Abisai Tellez MD #### LIPR #### [facility] [address] [place] [phone] Brake Drum Molder: Shaheed Alcocer MD Sodium [Moles/Vol] 133 mmol/L Low 135-144 [facility] Comment on above: Performed By: #### Randall FAST, CP #### [facility] [address] [place] [address] Brake Drum Molder: Abisai Tellez MD #### LIPR #### [address] [address] Brake Drum Molder: Shaheed Alcocer MD Urea nitrogen [Mass/Vol] 22 mg/dL Normal 8-23 [facility] Comment on above: Performed By: #### Randall FAST, CP #### [facility] [address] [place] [address] Brake Drum Molder: Abisai Tellez MD #### LIPR #### [address] [address] Brake Drum Molder: Shaheed Alcocer MD Albumin/Glob Ratio NOT REPORTED Normal 1.0-2.5 [facility] Comment on above: Performed By: #### Randall FAST, CP #### [facility] [address] [place] [address] Brake Drum Molder: Aibsai Tellez MD #### LIPR #### [facility] [address] [place] [phone] Brake Drum Molder: Shaheed Alcocer MD Staging: NOT REPORTED Normal [facility] Comment on above: Performed By: #### Randall FAST, CP #### [facility] [address] [place], [place] [phone] Brake Drum Molder: Abisai Tellez MD #### LIPR #### [address] [place], [place] [phone] Brake Drum Molder: Shaheed Alcocer MD Lipid Profileon 09-19-2021 Cholesterol [Mass/Vol] 135 mg/dL Normal <200 [facility] Comment on above: Result Comment: Cholesterol Guidelines: <200 Desirable 200-240 Borderline >240 Undesirable Performed By: #### Randall FAST, CP #### [facility] [address] [place], [place] [phone] Brake Drum Molder: Abisai Tellez MD #### LIPR #### [address] [place], [place] [phone] Brake Drum Molder: Shaheed Alcocer MD Cholesterol in HDL [Mass/Vol] 30 mg/dL Low >40 [facility] Comment on above: Result Comment: HDL Guidelines: <40 Undesirable 40-59 Borderline >59 Desirable Performed By: #### Randall FAST, CP #### [facility] [address] [place], [place] [phone] Brake Drum Molder: Abisai Tellez MD #### LIPR #### [address] [phone] Brake Drum Molder: Shaheed Alcocer MD Cholesterol in LDL [Mass/Vol] 80 mg/dL Normal 0-130 [facility] Comment on above: Result Comment: LDL Guidelines: <100 Desirable 100-129 Near to/above Desirable 130-159 Borderline >159 Undesirable Direct (measured) LDL and calculated LDL are not interchangeable tests. Performed By: #### Z FAST, CP #### [facility] [address] [place], [place] [phone] Brake Drum Molder: Abisai Tellez MD #### LIPR #### [address] [place] [address] Brake Drum Molder: Shaheed Alcocer MD Cholesterol.total/Apple sterol in HDL [Mass ratio] 4.5 {ratio} Normal <5 [facility] Comment on above: Performed By: #### Z FAST, CP #### [facility] [address] [place] [address] Brake Drum Molder: Abisai Tellez MD #### LIPR #### [address] [address] Brake Drum Molder: Shaheed Alcocer MD Triglyceride [Mass/Vol] 126 mg/dL Normal <150 [facility] Comment on above: Result Comment: Triglyceride Guidelines: <150 Desirable 150-199 Borderline 200-499 High >499 Very high Based on AHA Guidelines for fasting triglyceride, July 2012. Performed By: #### Randall FAST, CP #### [facility] [address] [place] [address] Brake Drum Molder: Abisai Tellez MD #### LIPR #### [address] [phone] Brake Drum Molder: Shaheed Alcocer MD Cholesterol,VLDL NOT REPORTED Normal 11-04 [facility] Comment on above: Performed By: #### Z FAST, CP #### [facility] [address] [place] [address] Brake Drum Molder: Abisai Tellez MD #### LIPR #### [address] [place] [address] Brake Drum Molder: Shaheed Alcocer MD Patient fasting?on 1 Patient fasting? YES Normal [facility] Comment on above: Performed By: #### Z FAST, CP #### [facility] [address] [place] [address] Brake Drum Molder: Abisai Tellez MD #### LIPR #### [address] [place] [address] Brake Drum Molder: Shaheed Alcocer MD COVID Quick Testingon 2020 Result Negative [place] [facility] Other Quick Fluon 09-16-2021 FLUAV Ab CF (S) [Titer] Negative N M-KOPA Other FLUBV Ab CF (S) [Titer] Negative N M-KOPA Other [id number] 07-20-2021 SARS-CoV-2 (COVID-19) RNA GARRY+probe Ql (Unsp spec) Normal [facility] Comment on above: Performed By: #### C OVID #### [address] [place] [address] Brake Drum Molder: Shaheed Alcocer MD [facility] [address] [place] [address] Brake Drum Molder: Abisai Tellez MD SARS-CoV-2 (COVID-19) RNA GARRY+probe Ql (Unsp spec) Not detected [facility] Comment on above: Result Comment: The specimen is NEGATIVE for SARS-CoV-2, the novel coronavirus associated with COVID-19. A negative result does not rule out COVID-19. Carole SARS-CoV-2 for use on the Carole [employer]0/8800 Systems is a real-time RT-PCR test intended [...] this assay. Fact sheet for Healthcare Providers: https://www.fda.gov/media/925989/download Fact sheet for Patients: https://www.fda.gov/media/645984/download METHODOLOGY: RT-PCR Performed By: #### C OVID #### [facility] [address] [place], [place] [phone] Brake Drum Molder: Shaheed Alcocer MD [facility] [address] [place] [address] [place] [address] Brake Drum Molder: Abisai Tellez MD [id number] 07-19-2021 SARS-CoV-2 (COVID-19) RNA GARRY+probe Ql (Unsp spec) .NASOPHARYNGEAL SWAB Normal [facility] Comment on above: Performed By: #### C OVID #### [facility] [address] [place], [place] [phone] Brake Drum Molder: Shaheed Alcocer MD [address] [place] [address] Brake Drum Molder: Abisai Tellez MD US SCREENING FOR AAAon [...] Wesley Aquino MD 08/02/20 Final result Normal [facility] VL DUP CAROTID BILATERALon 0 12-10-2019 [facility] l Vascular Carotid Procedure Patient Name BRANT Date of Study 12/08/2019 SHARON Rinaldi Date of 1950 Gender Male Age 69 year(s) Race Room Number Corporate ID [id number] # Patient Acct [id number] # MR # [id number] Court Reporter ELENI Fenton Interpreting Physician Diego Luis MD Referring Referring Physician Castillo Clark Nurse Practitioner Procedure Type of Study: Cerebral: Carotid, Carotid Scan Bilateral. Patient Status:Out Patient. Comments:INDICATIONS: 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) ([facility]) I83.9, R.29.818 Basic Classification of ICA Stenosis: PSV - [...] side. - Additional Measurements:ICAPSV/C CAPSV 1.47.ICAEDV/CCAEDV 2.54. [facility] [place], [place] [employer], [employer] Incoming Cardio Results From [employer] - 12/10/2019 1:16 PM [facility] Vascular Carotid Procedure Patient Name BRANT Date of Study 12/08/2019 SHARON Rinaldi Date of 1950 Gender Male Age 69 year(s) Race Room Number Corporate ID [id number] # Patient Acct [id number] # MR # [id number] Court Reporter ELENI Fenton Interpreting Physician Diego Luis MD Referring Referring Physician Castillo Clark Nurse Practitioner Procedure Type of Study: Cerebral: Carotid, Carotid Scan Bilateral. Patient Status:Out Patient. Comments:INDICATIONS: 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) ([facility]) I83.9, R.29.810 Basic Classification of ICA [...] side. - Additional Measurements:ICAPSV/C CAPSV 1.47.ICAEDV/CCAEDV 2.54. [facility], GlucoTec CT HEAD WO CONTRASTon 2019 No acute intracrania l abnormality. [facility] [place], [place] EXAMINATION: CT OF THE HEAD WITHOUT CONTRAST [...] droop due to acute cerebrovascular accident (CVA) ([facility]) TECHNOLOGIST PROVIDED HISTORY: Left facial droop [...] of the visualized skull or soft tissues. [place], [place] [employer], [employer] Incoming Radiant Results From [employer] - 12/08/2019 4:41 PM EST EXAMINATION: CT [...] droop due to acute cerebrovascular accident (CVA) ([facility]) TECHNOLOGIST PROVIDED HISTORY: Left facial droop [...] soft tissues. IMPRESSION: No acute intracranial abnormality. [place], [place] Glucose, Whole Bloodon 05-31 Glucose [Mass/Vol] 113 mg/dL High 65 - 99 mg/dL [place] Interpretation and review of laboratory results Abnormal [place] Progress Noteon 04-13-2018 HIM IP Note OR Stunt Double Normal [facility] Progress Noteon 03-29-2018 HIM IP Note OR Stunt Double Normal [facility] HIM IP Note OR Stunt Double Normal [facility] CBCon 08-03-2017 Erythrocyte distribution width Auto Ratio (RBC) 13.9 % Normal 12.5-15.4 [facility] Comment on above: Performed By: #### C BC ####[address] [address] Erythrocytes (RBC) 5.09 10*6/uL Normal 4.5-5.9 [facility] Comment on above: Performed By: #### C BC ####[address] [address] Hematocrit (HCT) 44.0 % Normal 41-53 [facility] Comment on above: Performed By: #### C BC ####[address] [address] Hemoglobin mass conc (Bld) 14.2 g/dL Normal 13.5-17.5 [facility] Comment on above: Performed By: #### C BC ####[address] [address] MCH 27.9 pg Normal 26-34 [facility] Comment on above: Performed By: #### C BC ####[address] [address] MCHC mass conc (RBC) 32.3 g/dL Normal 31-37 [facility] Comment on above: Performed By: #### C BC ####[address] [address] MCV 86.3 fL Normal 80-100 [facility] Comment on above: Performed By: #### C BC ####[facility] [place] [address] Platelet mean volume (PMV) 9.2 fL Normal 6.0-12.0 [facility] Comment on above: Result Comment: [address] [place] [address] Performed By: #### C BC ####[address] [address] Platelets 170 10*3/uL Normal 140-450 [facility] Comment on above: Performed By: #### C BC ####[address] [address] WBC (Leukocytes) 9.4 10*3/uL Normal 3.5-11.0 [facility] Comment on above: Performed By: #### C BC ####[address] [address] Comp Metabolic Profon 2016 Aspartate aminotransferase (AST) 31 U/L Normal <40 [facility] Comment on above: Performed By: #### L IPR, CP ####[address] [address] (cont.) Normal [facility] Comment on above: Result Comment: Aver age GFR for 60-69 years old: 85 mL/min/1.73sq mChronic Kidney Disease: <60 mL/min/1.73sq mKidney failure: <15 mL/min/1.73sq meGFR calculated using average adult body mass. Additional eGFR calculator available at:http://[email or web address]_[email or web address] [address] Performed By: #### L IPR, CP ####[address] [address] Alanine aminotransferase (ALT) 34 U/L Normal 5-41 [facility] Comment on above: Performed By: #### L IPR, CP ####[address] [address] Albumin 3.5 g/dL Normal 3.5-5.2 [facility] Comment on above: Performed By: #### L IPR, CP ####[address] [address] Albumin/Globulin Ratio 1.0 {ratio} Normal 1.0-2.[address] [facility] Comment on above: Performed By: #### L IPR, CP ####[address] [address] Alkaline Phos 82 U/L Normal 40-129 [facility] Comment on above: Performed By: #### L IPR, CP ####[address] [address] Anion gap 12 mmol/L Normal 9-17 [facility] Comment on above: Performed By: #### L IPR, CP ####[address] [address] Bilirubin Ql (U) 0.57 mg/dL Normal 0.3-1.2 [facility] Comment on above: Performed By: #### L IPR, CP ####[address] [address] Calcium 9.0 mg/dL Normal 8.6-10.4 [facility] Comment on above: Performed By: #### L IPR, CP ####[address] [address] Chloride 100 mmol/L Normal 98-107 [facility] Comment on above: Performed By: #### L IPR, CP ####[address] [address] CO2 28 mmol/L Normal 20-31 [facility] Comment on above: Performed By: #### L IPR, CP ####[address] [address] Creatinine 0.95 mg/dL Normal 0.70-1.20 [facility] Comment on above: Performed By: #### L IPR, CP ####[facility] [address] [place] [address] GFR, Amer >60 Normal >60 [facility] Comment on above: Performed By: #### L IPR, CP ####[facility] [address] [place] [address] GFR,non Amer >60 Normal >60 [facility] Comment on above: Performed By: #### L IPR, CP ####[address] [address] Glucose mass conc 125 mg/dL High 70-99 [facility] Comment on above: Performed By: #### L IPR, CP ####[address] [address] Potassium molar conc 4.7 mmol/L Normal 3.7-5.3 [facility] Comment on above: Performed By: #### L IPR, CP ####[address] [place] [address] Protein 6.9 g/dL Normal 6.4-8.3 [facility] Comment on above: Performed By: #### L IPR, CP ####[facility] [address] [place] [address] Sodium 140 mmol/L Normal 135-144 [facility] Comment on above: Performed By: #### L IPR, CP ####[facility] [address] [place] [address] Urea nitrogen 18 mg/dL Normal 8-23 [facility] Comment on above: Performed By: #### L IPR, CP ####[address] [address] BUN/CRE Ratio NOT REPORTED Normal - [facility] Comment on above: Performed By: #### L IPR, CP ####[address] [address] Staging: NOT REPORTED Normal [facility] Comment on above: Performed By: #### L IPR, CP ####[address] [address] Discharge Summaryon 08-03-20 17 HIM IP Note OR Stunt Double Normal [facility] Lipid Profileon 08-03-2017 Cholesterol 143 mg/dL Normal <200 [facility] Comment on above: Result Comment: Chol esterol Guidelines: <200 Desirable 200-240 Borderline >240 Undesirable Performed By: #### L IPR, CP ####[address] [address] Cholesterol to HDL Ratio 4.9 {ratio} Normal <5 [facility] Comment on above: Performed By: #### L IPR, CP ####[address] [address] HDL Cholesterol 29 mg/dL Low >40 [facility] Comment on above: Result Comment: HDL Guidelines: <40 Undesirable 40-59 Borderline >59 Desirable Performed By: #### L IPR, CP ####[address] [address] LDL Cholesterol 58 mg/dL Normal 0-130 [facility] Comment on above: Result Comment: LDL Guidelines: <100 Desirable 100-129 Near to/above Desirable 130-159 Borderline >159 UndesirableDirect (measured) LDL and calculated LDL are not interchangeable tests. Performed By: #### L IPR, CP ####[address] [address] Triglyceride 282 mg/dL High <150 [facility] Comment on above: Result Comment: Trig lyceride Guidelines: <150 Desirable 150-199 Borderline 200-499 High >499 Very high Based on AHA Guidelines for fasting triglyceride, July 2012.[facility] [employer] [address] [place] [address] Performed By: #### L IPR, CP ####[address] [place] [address] Cholesterol in VLDL mass conc NOT REPORTED Normal - [facility] Comment on above: Performed By: #### L IPR, CP ####[facility] [address] [place] [address] Brain Natri. Peptideon 08-02 BNP Normal [facility] Comment on above: Result Comment: Pro- BNP Reference Range:Rule Out: <300Grey Zone: Age <50 300-450 Age 50-75 300-900 Age >75 300-1800Usually represents mild to moderate HF but other cardiopulmonary causes cannot be ruled out.Rule In: Age <50 >450 Age 50-75 >900 Age >[address] [address] Performed By: #### B PIN MACHINE TENDER, TROPI, TSH, MG, PT ####[address] [address] BNP 347 pg/mL High <300 [facility] Comment on above: Result Comment: Pro- BNP results cannot be compared to BNP results. Performed By: #### B PIN MACHINE TENDER, TROPI, TSH, MG, PT ####[address] [address] History and Physicalon 08-02 HIM IP Note OR Stunt Double Normal [facility] Magnesiumon 08-02-2017 Magnesium 1.8 mg/dL Normal 1.6-2.6 [facility] Comment on above: Result Comment: [facility] [employer] [address] [place] [address] Performed By: #### B PIN MACHINE TENDER, TROPI, TSH, MG, PT ####[address] [address] PTon 08-02-2017 INR Coag RelTime (PPP) 0.9 {INR} Normal [facility] Comment on above: Result Comment: Ther apeutic Range: Moderate Anticoagulant Intensity: INR = 2.0-3.0 High Anticoagulant Intensity: INR = 2.5-3.[address] [address] Performed By: #### B PIN MACHINE TENDER, TROPI, TSH, MG, PT ####[address] [address] Prothrombin time (PT) Coag time (PPP) 9.9 s Normal 9.4-12.6 [facility] Comment on above: Performed By: #### B PIN MACHINE TENDER, TROPI, TSH, MG, PT ####[address] [address] Thyroid Stim. Horm.on 2016 Thyroid stimulating hormone (TSH) 1.15 m[IU]/L Normal 0.30-5.00 [facility] Comment on above: Result Comment: [facility] [employer] [address] [place] [address] Performed By: #### B PIN MACHINE TENDER, TROPI, TSH, MG, PT ####[address] [address] Troponinon 08-02-2017 Troponin I.cardiac mass conc Normal [facility] Comment on above: Result Comment: Refe rence Range: <0.03 Within reference range. 0.03-0.09 Possible myocardial damage.Repeat at appropriate intervals to rule out chronic elevation. >= 0.10 Indicative of myocardial damage.[address] [address] Performed By: #### T ROPI ####[address] [address] Troponin T.cardiac mass conc ug/L Normal <0.03 [facility] Comment on above: Result Comment: Trop onin T results cannot be compared to Troponin-I results. Performed By: #### T ROPI ####[address] [address] Troponin I.cardiac mass conc Normal [facility] Comment on above: Result Comment: Refe rence Range: <0.03 Within reference range. 0.03-0.09 Possible myocardial damage.Repeat at appropriate intervals to rule out chronic elevation. >= 0.10 Indicative of myocardial damage.[facility] Center[facility] [place] [address] Performed By: #### T ROPI ####[address] [address] Troponin T.cardiac mass conc ug/L Normal <0.03 [facility] Comment on above: Result Comment: Trop onin T results cannot be compared to Troponin-I results. Performed By: #### T ROPI ####[address] [address] Troponin I.cardiac mass conc Normal [facility] Comment on above: Result Comment: Refe rence Range: <0.03 Within reference range. 0.03-0.09 Possible myocardial damage.Repeat at appropriate intervals to rule out chronic elevation. >= 0.10 Indicative of myocardial damage.[facility] [place] [address] Performed By: #### T ROPI ####[address] [address] Troponin T.cardiac mass conc ug/L Normal <0.03 [facility] Comment on above: Result Comment: Trop onin T results cannot be compared to Troponin-I results. Performed By: #### T ROPI ####[address] [address] Troponin I.cardiac mass conc Normal [facility] Comment on above: Result Comment: Refe rence Range: <0.03 Within reference range. 0.03-0.09 Possible myocardial damage.Repeat at appropriate intervals to rule out chronic elevation. >= 0.10 Indicative of myocardial damage.[facility] [place], [place] [id number] [phone] Performed By: #### B PIN MACHINE TENDER, TROPI, TSH, MG, PT ####[address] [place], [place] 8554208 Troponin T.cardiac mass conc ug/L Normal <0.03 [facility] Comment on above: Result Comment: Trop onin T results cannot be compared to Troponin-I results. Performed By: #### B PIN MACHINE TENDER, TROPI, TSH, MG, PT ####[facility] [address] [place], [place] [id number] Discharge Summaryon 07-11-20 17 HIM IP Note OR Stunt Double Normal [facility] History and Physicalon 07-10 HIM IP Note OR Stunt Double Normal [facility] Vital Signs Date Time Vital Sign Value Performing Clinician Facility 08-10-2024 13:49-0500 Body height 172.7 cm Renetta Lux MD Work Phone: [facility] 08-10-2024 13:49-0500 Body mass index (BMI) [Ratio] 41.36 kg/m2 Renetta Lux MD Work Phone: [facility] 08-10-2024 13:49-0500 Body weight 123.38 kg Renetta Lux MD Work Phone: [facility] 08-10-2024 13:49-0500 Diastolic blood pressure 62 mm[Hg] Renetta Lux MD Work Phone: [facility] 08-10-2024 13:49-0500 Heart rate 62 /min Renetta Lux MD Work Phone: [facility] 08-10-2024 13:49-0500 Respiratory rate 16 /min Renetta Lux MD Work Phone: [facility] 08-10-2024 13:49-0500 Systolic blood pressure 106 mm[Hg] Renetta Lux MD Work Phone: [facility] 01-20-2024 15:12-0400 Blood Pressure Location Ross WEINBERG [facility] [place] 01-20-2024 15:12-0400 Diastolic blood pressure 86 mm[Hg] Ross NILL [facility] [place] 01-20-2024 15:12-0400 Heart rate 80 /min Ross NILL [facility] [place] 01-20-2024 15:12-0400 Respiratory rate 16 /min Ross DRAKEL [facility] 01-20-2024 15:12-0400 Systolic blood pressure 130 mm[Hg] Ross DRAKEL [facility] 09-16-2021 10:45-0500 Body height 172.72 cm Pat Ann Marie Other Convr[facility] Other 09-16-2021 10:45-0500 Body mass index (BMI) [Ratio] 41.05 kg/m2 Pat Ann Marie Other [facility] Other 09-16-2021 10:45-0500 Body temperature 99 [degF] Pat Jesus Other [facility] Other 09-16-2021 10:45-0500 Body weight 122.47 kg Pat Ann Marie Other Con[facility] Other 09-16-2021 10:45-0500 Respiratory rate 18 /min Pat Jesus Other Con[facility] Other 09-16-2021 10:45-0500 SaO2% (BldA) [Mass fraction] 96 % Pat Jesus Other Convr[facility] Other 05-31-2019 10:25-0400 BP Diastolic 78 mm[Hg] Felix [facility] [place] , [place] 05-31-2019 10:25-0400 BP Systolic 126 mm[Hg] Felix [facility] [place] 05-31-2019 10:25-0400 Pulse (Heart Rate) 76 /min [facility] Care[facility] 05-31-2019 10:25-0400 Pulse Oximetry 95 % [facility] , [place] 05-31-2019 10:25-0400 Respiratory Rate 16 /min [facility] [place] 05-31-2019 09:53-0400 Body Temperature 96.8 [degF] [facility] [place] 05-31-2019 07:24-0400 BMI (Body Mass Index) 39.43 kg/m2 [facility], [place] 05-31-2019 07:24-0400 Body weight 121.11 kg Felix [employer] [facility] , [place] 05-31-2019 07:24-0400 Height 175.3 cm [place], [place] Encounters Encounter Date Encounter Type Care Provider Facility Start: 08-10-2024 End: 08-10-2024 Sarbina Lux MD Work Phone: [facility] Start: 08-10-2024 End: 08-10-2024 Sabrina Lux MD Work Phone: [facility] Start: 08-10-2024 End: 08-10-2024 Office outpatient new 45 minutes Renetta Lux MD Work Phone: [facility] Comment on above: Type 2 diabetes magi itus with hyperglycemia, without long-term current use of insulin (CMS/HCC) (Primary Dx); Mixed hyperlipidemia (CMS/HCC); Primary hypertension (CMS/[facility]); Vitamin D deficiency; Encounter for dietary consultation; Class 3 severe obesity due to excess calories with serious comorbidity and body mass index (BMI) of 40.0 to 44.9 in adult ([facility]) Start: 08-10-2024 End: 08-10-2024 ambulatory RENETTA LUX Not Available Start: 08-02-2024 End: 08-02-2024 ambulatory [facility] Start: 07-22-2024 End: 07-22-2024 Bamboo flowsheet Piyush Alt RN [facility] Start: 07-22-2024 End: 07-22-2024 Bamboo flowsheet Piyush Alt RN [facility] Start: 07-22-2024 End: 07-22-2024 ambulatory PIYUSH ALT Not Available Start: 06-17-2024 End: 06-17-2024 ambulatory SHIMA MICHELEZPATRICK Not Available Start: 05-10-2024 End: 05-10-2024 ambulatory [facility] Start: 04-06-2024 End: 04-06-2024 ambulatory KHALIL FAWWAD Not Available Start: 03-16-2024 End: 03-16-2024 ambulatory KHALIL FAWWAD Not Available Start: 01-20-2024 End: 01-21-2024 ambulatory KHALIL FAWWAD Facility:[facility] Start: 01-20-2024 End: 01-20-2024 Patient encounter procedure Ross WEINBERG [facility] [place] Start: 12-16-2023 ambulatory KHALIL FAWWAD Facility: [facility] Start: 12-16-2023 End: 12-16-2023 ambulatory KHALIL FAWWAD Not Available Start: 10-21-2023 End: 10-21-2023 ambulatory KHALIL FAWWAD Not Available Start: 2023 End: 2023 ambulatory KHALIL FAWWAD Not Available Start: 11-26-2022 ambulatory [facility] Facility: [facility] Start: 11-19-2022 End: 11-20-2022 ambulatory [facility] Facility:H1 Start: 10-29-2022 End: 10-29-2022 ambulatory Khalil Fawwad Facility:[facility] Start: 10-29-2022 End: 10-29-2022 ambulatory MD Shaikh Mcnally Work Phone: [facility] Work Phone: Start: 10-29-2022 End: 10-29-2022 Patient encounter procedure MD Shaikh Mcnally Work Phone: [facility] [address] Work Phone: Start: 05-02-2022 End: 05-02-[address] GRESHAM [facility] Facility: Start: 09-19-2021 End: 09-20-2021 ambulatory [facility] Start: 09-16-2021 (URG) Urgent Care Visit Pat hunter [facility] Start: 09-16-2021 End: 09-16-2021 ambulatory Pat Jesus Other Convrrt Other Start: 07-19-2021 End: 07-20-2021 ambulatory [facility] Start: 07-19-2021 End: 07-19-2021 [facility] Covid Screening Comment on above: COVID Start: 08-02-2020 End: 08-05-2020 ambulatory EUSEBIO [facility] Start: 12-08-2019 End: 12-10-2019 Subsequent hospital visit by physician [facility] Vascular Imaging Room [facility] Comment on above: 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) Start: 05-31-2019 End: 05-31-2019 Subsequent hospital visit by physician Felix Mayo Work Phone: [facility] Start: 03-04-2018 End: 03-05-2018 Ambulatory DEFAULT PHYSICIAN Facility:[facility] Start: 08-02-2017 End: 08-03-2017 [facility] Start: 07-10-2017 End: 07-11-2017 Ambulatory NESHACATHERINEALLISON [facility] Procedures Date Procedure Procedure Detail Performing Clinician Start: 08-10-2024 Gluc bld gluc mntr d ev cleared fda spec home use Renetta Lux MD Work Phone: Start: 01-05-2024 Colonoscopy Piyush Sanders RN Start: 08-02-2020 Ultrasound exam AAA screen EUSEBIO [...] PROCEDURE NENA NUNEZ Start: 1950 Colonoscopy Ross ELIESER IRBY Cardiac ablation usi ng fluoroscopy guidance Ross SULTANA Colonoscopy Ross SULTANA Partial resection of colon Alhaji WEINBERG Placement of stent i n coronary artery Ross WEINBERG Plan of Treatment Date Care Activity Detail Author Start: 01-04-2034 Screening for malignant neoplasm of colon [facility] Start: 05-31-2029 Screening for malignant neoplasm of colon Colon cancer screen colonoscopy scrible Work Phone: Start: 03-23-2026 Glaucoma screening Diabetes: Retinopathy Screening [facility] Start: 11-09-2024 End: 11-09-2024 Patient encounter procedure 11/09/2024 1:40 PM EST Office Visit [facility] END[facility] [address] [place] [address] Renetta Lux MD [address] [place] [address] [facility] Start: 09-21-2024 End: 09-21-2024 Patient encounter procedure 09/21/2024 1:00 PM EST Office Visit [facility] [address] [place] [address] Shima Resendez NP [address] [place] [address] [facility] Start: 2024 Medicare Annual Wellness (AWV) Medicare Annual Wellness (AWV) [facility] Start: 09-16-2024 End: 09-16-2024 Patient encounter procedure 09/16/2024 1:00 PM EST Office Visit [facility] [address] [place] [address] Shima Resendez, ANA [address] [place] [id number] [facility] Start: 08-19-2024 End: 08-19-2024 Clinical Support 08/19/2024 2:30 PM EST Clinical Support [facility] [address] [place] [address] Piyush Sanders RN [facility] Start: 08-10-2024 End: 08-10-2024 Patient encounter procedure [facility] Comment on above: Type 2 diabetes mellitus with hyperglyce alexandria, without long-term current use of insulin ([facility]); Diabetes mellitus type 2, noninsulin dependent ([facility]) Start: 06-22-2024 Hemoglobin A1c measurement Diabetes: Hemoglobin A1C [facility] Start: 06-06-2024 Influenza vaccination Influenza Vaccine (#1) [facility] Start: 05-06-2024 Urine screening for protein Diabetes: Urine Protein Screening [facility] Start: 07-18-2022 End: 07-18-2022 Patient encounter procedure 07/18/2022 Office Visit Pulmonology Steve Lynn, [address] [address] [employer] [employer] [facility] Start: 03-20-2022 Diabetic foot examination Diabetic foot exam [employer] Phone: Start: 03-20-2022 Diabetic microalbuminuria test Diabetic microalbuminuria test [employer] Phone: Start: 03-20-2022 Hemoglobin A1c measurement A1C test (Diabetic or Prediabetic) [employer] Phone: Start: 11-20-2021 Diabetic retinal exam Diabetic retinal exam [employer] Phone: Start: 10-11-2021 End: 10-11-2021 Patient encounter procedure 10/11/2021 Office Visit Neurology Castillo Clark MD [address] [place] [address] [place] [address] [facility] Start: 09-19-2021 End: 09-19-2021 Patient encounter procedure 09/19/2021 Office Visit Family Medicine Eusebio Daniels MD [address] [place] [address] [phone] [facility] Start: 07-27-2021 Annual Wellness Visit (AWV) Annual Wellness Visit (AWV) [facility] Phone: Start: 06-06-2021 Influenza vaccination Flu vaccine (#1) [employer] Phone: Start: 07-02-2020 A1C test (Diabetic or Prediabetic) A1C test (Diabetic or Prediabetic) [place] Start: 07-02-2020 Creatinine measurement Creatinine monitoring [facility] [place] Phone: Start: 07-02-2020 Creatinine monitoring Creatinine monitoring [place], [place] Start: 07-02-2020 Diabetic microalbuminuria test Diabetic microalbuminuria test [place] Start: 07-02-2020 Lipid panel Lipid screen [facility] [place] Phone: Start: 07-02-2020 Lipid screen Lipid screen [place] Start: 07-02-2020 Potassium monitoring Potassium monitoring [place] Start: 06-29-2020 End: 06-29-2020 Office Visit 06/29/2020 Office Visit Pulmonology Steve Lynn, [address] [facility] [address] [place] [address] [facility] Start: 05-31-2020 Colon cancer screen colonoscopy Colon cancer screen colonoscopy [place] Start: 04-13-2020 Colon cancer screen colonoscopy Colon cancer screen colonoscopy [place] Start: 04-01-2020 [object Object] Diabetic foot exam [place] Start: 02-03-2020 End: 02-03-2020 Office Visit 02/03/2020 Office Visit Neurology Castillo Clark MD [address] [facility] [address] [place] [address] [phone] [facility] Start: 07-05-2019 End: 07-05-2019 Office Visit 07/05/2019 Office Visit Family Medicine Eusebio Daniels MD [address] [place] [address] [phone] [facility] [facility] Start: 07-02-2019 A1C test (Diabetic or Prediabetic) A1C test (Diabetic or Prediabetic) [place], [place] Start: 06-17-2019 End: 06-17-2019 Office Visit 06/17/2019 Office Visit Pulmonology Steve Lynn, [address] [facility] [address] [place] [address] [phone] Specialist Outreach [place] Start: 06-06-2019 Influenza vaccination Flu vaccine (#1) [place], [place] Start: 05-25-2019 Diabetic microalbuminuria test Diabetic microalbuminuria test [place] Start: 04-15-2019 Pneumococcal 65+ years Vaccine (2 of 2 - PPSV23) Pneumococcal 65+ years Vaccine (2 of 2 - PPSV23) [place] Start: 03-21-2019 Annual Wellness Visit (AWV) Annual Wellness Visit (AWV) [place] Start: 02-11-2019 Lipid screen Lipid [place] Start: 01-01-2019 Screening for malignant neoplasm of colon [facility] Start: 11-15-2018 Diabetic retinal exam Diabetic retinal exam [place], [place] Start: 08-03-2018 Creatinine monitoring Creatinine monitoring [place] Start: 08-03-2018 Potassium monitoring Potassium monitoring [place] Start: 05-09-2017 Shingles Vaccine (2 of 3) Shingles Vaccine (2 of 3) [place] Start: 2013 Annual Wellness Visit (AWV) Annual Wellness Visit (AWV) [place] Start: 2000 Screening for malignant neoplasm of lung Low dose CT lung screening [facility] Phone: Start: 1969 DTaP/Tdap/Td vaccine (1 - Tdap) DTaP/Tdap/Td vaccine (1 - Tdap) [place], [place] Start: 1969 Hepatitis B vaccine (1 of 3 - Risk 3-dose series) Hepatitis B vaccine (1 of 3 - Risk 3-dose series) [place], [place] Start: 1950 AAA screen AAA screen [place], [place] Start: 1950 Hepatitis C screen Hepatitis C screen [place], [place] Start: 1950 Hepatitis C screening Hepatitis C screen [facility] Phone: Start: 1950 Screening for malignant neoplasm of colon [facility] End: 07-19-2021 COVID-19 COVID-19 Lab Routine Covid 1 Occurrences starting 07/19/2021 until 07/19/[address] [facility] [place] Phone: Comment on above: 1 Occurrences starting 07/19/2021 until 07/19/2021 COVID-19 COVID-19 Lab Rou missy COVID 07/19/2021 12:[address] [facility] [place] Phone: End: 05-31-2019 POCT glucose POCT glucose Point of Care Testing Routine One Time for 1 Occurrences starting 05/31/2019 until 05/31/2019 [place] Comment on above: One Time for 1 Occurrences starting 05/07 until 05/31/2019 Surgical Pathology Surgical Path ology Lab Routine ONE TIME for 1 Occurrences starting 05/31/2019 [place] Comment on above: ONE TIME for 1 Occurrences starting 05/07 Immunizations Immunization Date Immunization Notes Care Provider [facility] 09-17-2023 influenza virus vacc ine, unspecified formulation Ross WEINBERG [facility] [place] 12-13-2023 Influenza, High-dose Seasonal, Quadrivalent, Preservative Free Piyush Sanders RN [facility] 06-03-2023 zoster vaccine recombinant Piyush Sanders RN [facility] 06-03-2023 Shingrix 50 MCG/0.5M L vaccine Piyush Sanders RN [facility] 04-01-2023 zoster vaccine recombinant Piyush Sanders RN [facility] 06-29-2021 COVID-19, Pfizer, PF , 30mcg/0.3mL [facility] Schedule [facility] [place] Comment on above: Result Comment: 2023: [id number] 06-08-2021 SARS-CoV-2 (COVID-19 ) mRNA BNT-162b2 vax REscour [facility] [place] Comment on above: Result Comment: 2023: [id number] 07-16-2020 influenza, high dose seasonal, preservative-free Mthz Schedule [facility] [place] Phone: 07-16-2020 Influenza, Quadv, adjuvanted, 65 yrs +, IM, PF (Fluad) Mthz Schedule [facility] Work Phone: 07-05-2019 influenza, injectabl e, quadrivalent, preservative free [facility] Room [facility] 07-05-2019 pneumococcal polysaccharide vaccine, 23 valent [facility] Room [facility] 03-14-2017 zoster vaccine, live [facility] 07-08-2016 Influenza Vaccine, unspecified formulation [facility] [place] 07-08-2016 influenza virus vacc ine, unspecified formulation Piyush Sanders RN [facility] 07-08-2016 influenza, seasonal, injectable Piyush Sanders RN [facility] 04-05-2016 pneumococcal conjuga te vaccine, 13 valent [facility] 07-26-2015 influenza virus vacc ine, unspecified formulation [facility] [place] 07-26-2015 influenza virus vacc ine, whole virus Piyush Sanders RN [facility] 04-15-2014 pneumococcal polysaccharide vaccine, 23 valent [facility] Payers Date Payer Category Payer Self-pay 2022 Medicare (Managed Care) [facility] [id number] 2021 Unknown [id number] 2020 Medicare [id number] 2019 Private Health Insurance [id number] 2018 Private Health Insurance AETNA AETNA [facility] MEDICARE SUPP xxxxxxxxxx 2018-Present [phone] [address] [place] [address] xxxxxxxxxx [id number] 2016 Unknown [id number] 2015 Medicare [id number] 2014 Medicare MEDICARE MEDICAR E PART A AND B xxxxxxxxxxx 2014-Present [phone] [place] [address] xxxxxxxxxxx [id number] 2014 Medicare [id number] 1950 Unknown [id number]. 173 1950 Unknown [id number] [id number]. 173 1950 Unknown [id number] 2.16.840.1.360236.3.579.2. 174 1950 Unknown [id number] 2.16.840.1.665599.3.579.2. 593 1950 Unknown [id number] 2.16.840.1.107074.3.579.2. 593 1950 Unknown [id number] 2.16.840.1.566277.3.579.2. 593 1950 Unknown [id number] 2.16.840.1.501778.3.579.2. 727 1950 Unknown [id number] 2.16.840.1.592160.3.579.2. 1259 1950 Unknown [id number] 2.16.840.1.312297.3.579.2. 1259 1950 Unknown [id number] 2.16.840.1.003300.3.579.2. 1259 1950 Unknown [id number] 2.16.840.1.128660.3.579.2. 1259 1950 Unknown [id number] 2.16.840.1.496415.3.579.2. 1259 1950 Unknown [id number] 2.16.840.1.171613.3.579.2. 1259 1950 Unknown [id number] 2.16.840.1.071793.3.579.2. 1259 1950 Unknown [id number] 2.16.840.1.254121.3.579.2. 1259 Unknown Unknown [id number] [id number]. 531 Social History Date Type Detail Facility Start: 05-31-2019 End: 12-16-2023 Tobacco smoking status NHIS Former smoker [facility] [place] End: 03-21-2010 History of tobacco use Current [place] Start: 05-31-2019 End: 2023 Cigarettes smoked current (pack per day) - Reported [place] Start: 05-31-2019 End: 2023 Alcohol intake No [facility] [place] [facility] Start: 1950 Sex Assigned At Not on file [place] Start: 11-04-2019 End: 07-19-2021 Alcohol intake Current non-drinker of alcohol (finding[place] Start: 07-19-2021 End: 12-16-2023 Tobacco use and exposure Never used [facility] Start: 03-20-2021 History SDOH Financial 5 [facility] Work Phone: Start: 03-20-2021 History SDOH Food Worry 1 [facility] Work Phone: Exposure to SARS-CoV -2 (event) Not sure [facility] Start: 1950 Sex Assigned At Male F [facility] Tobacco smoking status Never [facility] [place] History of tobacco use Cigarette Smoker [facility] History of tobacco use Passive smoker [facility] Start: 06-17-2024 End: 08-10-2024 Alcoholic beverage intake Ex-drinker (finding) [facility] Within the last year , have you been afraid of your partner or ex-partner? No [facility] Are you now , , , , never or living with a partner? [facility] How often do you hav e 6 or more drinks on 1 occasion? Never [facility] How hard is it for y ou to pay for the very basics like food, housing, medical care, and heating Not very hard [facility] Do you feel stress - tense, restless, nervous, or anxious, or unable to sleep at night because your mind is troubled all the time - these days [OSQ] Not at all [facility] (I/We) worried wheth er (my/our) food would run out before (I/we) got money to buy more. Never true [facility] Medical Equipment Procedure Code Equipment Code Equipment Origin al Text Equipment Identifier Dates 1 strip by Other route Test 2 times a day & as needed for symptoms of irregular blood glucose. [id number] 1 each by Does n ot apply route daily [id number] Test BS daily DX : E11.65 [id number] Start: 04-06-2020 Functional Status Date Assessment Result Facility 01-20-2024 Functional Status N/A [facility] Clinical Notes 09-16-2021 to 08-10-2024 Renetta Lux MD - 08/10/2024 1:40 PM EST Note Date & Type Note Facility 08-10-2024 History of Present illness Narrative Sharon Guo is a 73 y.o. male Shima Resendez, * presents with chief complaint of Diabetes (NEW/REF LAB IN EPIC /1 MONTH AGO AIC 8.7%) HPI: HPI 08/2024 Chance sent from Shima Resendez for uncontrolled diabetes A1c 8.7 last months in July/2024 blood sugar 186 in our office, currently he is on Rybelsus 14 mg, glimepiride 4mg only take it it once in the morning since it can cause diarrhea if he take it twice, Januvia 100 mg once a day, he has mixed hyperlipidemia, GFR above 60 in 12/2023 SUBJECTIVE: MEDICATIONS: Current Outpatient Medications Medication Instructions albuterol HFA 90 mcg/act inhaler 2 puffs, Every 4 hours PRN apixaban (ELIQUIS) 5 mg, 2 times daily aspirin 81 mg, Oral, Daily atorvastatin (LIPITOR) 80 mg, Oral, Daily cholecalciferol (VITAMIN D-3) 2,000 Units, Daily dapagliflozin (FARXIGA) 5 mg, Oral, Daily dilTIAZem (CARDIZEM) 60 mg, 2 times daily donepezil (ARICEPT) 10 mg, Nightly fluticasone (Flonase) 50 MCG/ACT nasal spray 2 sprays, Each Nostril, Daily, Shake gently. Before first use, prime pump. After use, clean tip and replace cap. Nqbivnucjgc-Dzzoursva-Bsmerj (Trelegy Ellipta) 200-62.5-25 MCG/ACT aerosol powder 1 puff, Inhalation, Daily furosemide (LASIX) 20 mg, Daily RT gabapentin (NEURONTIN) 300 mg, Oral, 3 times daily glimepiride (AMARYL) 2 mg, Oral, 2 times daily ipratropium-albuterol (Duo-Neb) 0.5-2.5 mg/3 mL nebulizer solution 3 mL, 4 times daily RT loratadine (CLARITIN) 10 mg, Oral, Daily nitroglycerin (NITROSTAT) 0.4 mg, Every 5 min PRN omeprazole (PRILOSEC) 20 mg, Oral, Daily primidone (MYSOLINE) 50 mg, Daily ramipril (ALTACE) 10 mg, Oral, Daily semaglutide (RYBELSUS) 14 mg, Oral, Daily Shingrix 50 mcg, Intramuscular, Once SITagliptin (JANUVIA) 100 mg, Oral, Daily sotalol (BETAPACE) 120 mg, 2 times daily traZODone (DESYREL) 50 mg, Nightly Umeclidinium [place] (Incruse Ellipta) 62.5 MCG/ACT aerosol powder 1 puff, Daily RT ALLERGIES: No Known Allergies Past Medical History: Diagnosis Date Anxiety and depression ([facility]/HCC) Arthritis Atrial fibrillation ([facility]) COPD (chronic obstructive pulmonary disease) ([facility]) Coronary artery disease ([facility]) Diverticulosis DVT (deep venous thrombosis) ([facility]) Essential tremor Fatigue History of CVA (cerebrovascular accident) HTN (hypertension) ([facility]) Hyperlipidemia ([facility]) Hypertension ([facility]) Moderate vascular dementia without behavioral disturbance, psychotic disturbance, mood disturbance, or anxiety ([facility]) Sleep apnea in adult SVT (supraventricular tachycardia) ([facility]) Type 2 diabetes mellitus ([facility]) Past Surgical History: Procedure Laterality Date BOWEL RESECTION 2003 CARDIAC SURGERY 2009 Cardiac ablation and stent REVIEW OF SYMPTOMS: 14 POINT OF SYSTEM REVIEWED AND NEGATIVE OBJECTIVE: Constitutional: Afebrile @ home; no weakness or night sweats SKIN: No change in skin color; no itching, rash or lesions; no hair loss; HEENT: No HAs or injury; no dizziness; No difficulty with vision; no eye pain, discharge or lesions; no hearing loss or difficulty; no nasal discharge, NECK: No pain, limitation of motion, lumps or swollen glands RESP: No cough, wheezing or difficulty breathing. No CP with breathing; CARDIO: No CP , SOB or fatigue, No edema, palpitations or dyspnea with exertion GI: No N/V/D or abd. pain; good appetite with no recent change. No heart burn, liver or gallbladder disease; no rectal bleeding or pain : No urinary pain , frequency or odor. MUSCULOSKELETAL: No muscle pain or cramps; no extremity weakness.No joint pain, stiffness, swelling or limitation of movement NEUROLOGY: No H/O seizures, stroke or fainting. No weakness, tremors. Hematology: No bleeding problems or excessive bruising ENDOCRINE: No increase in hunger, thirst or urination; admits compliance to medical management plan Feet: numbness tingling , ulcers or skin break Lab Results Component Value Date HGBA1C 8.7 (H) 06/24/2024 HGBA1C 8.1 (H) 03/22/2024 HGBA1C 8.0 (H) 01/01/2024 Lab Results Component Value Date GLU 186 (H) 06/24/2024 GLU 138 (H) 01/01/2024 GLU 136 (H) 10/07/2023 Visit Vitals BP 106/62 Pulse 62 Resp 16 Ht 5' 8 Wt 272 lb BMI 41.36 kg/m Smoking Status Former BSA 2.43 m ASSESSMENT AND PLAN: Assessment/Plan Diagnoses and all orders for this visit: Type 2 diabetes mellitus with hyperglycemia, without long-term current use of insulin ([facility]) - POCT glucose manually resulted - POCT glycosylated hemoglobin (Hb A1C) docked device - Ambulatory referral to Endocrinology - dapagliflozin (Farxiga) 5 MG; Take 1 tablet (5 mg) by mouth Daily - glimepiride (Amaryl) 2 MG tablet; Take 1 tablet (2 mg) by mouth in the morning and 1 tablet (2 mg) before bedtime. I will continue with the Rybelsus 14 mg once a day, stop Januvia no need for both, change glimepiride to 2 mg twice a day, new prescription sent, and start Farxiga 5 mg once a day Mixed hyperlipidemia ([facility]) Primary hypertension ([facility]) Vitamin D deficiency Encounter for dietary consultation Diet and exercise reviewed with the patient Class 3 severe obesity due to excess calories with serious comorbidity and body mass index (BMI) of 40.0 to 44.9 in adult ([facility]) Follow up in about 3 months (around 11/10/2024). documented in this encounter [facility] 08-02-2024 Note [facility] Cardiology Clinic Note Chief Complaint: Patient here for 2 mo follow up worsening SOB and diastolic dysfunction. He was started on lasix at last visit in May 2024. Says he isn't using his rescue inhaler as much anymore, but still isn't exercising as often as he should. ALLISON is improving. Denies chest pain and bleeding on Eliquis. HPI: Sharon Guo is a 73 y.o. male New patient being seen via telephone call to establish care. He has prior hx of CAD w/ PCI, afib, SVT, CVA, COPD, and DM. He used to see [facility] cardiology in [place]. Then saw Dr. Mattson in [place]. Now going to establish care with [facility]. Says his BP averages around 130-140's systolic. Denies chest pain. Has ALLISON with stairs. Has intermittent LE edema. Feels palpitations at times. HPI: From prior records: Sharon Guo is a 72 y.o. male gentleman who [...] He built a tricycle out of a [employer] and sold it 2 weeks after he built it. He now bought a 52 [employer] with a short block. He is planning on putting it on a [employer] with a large block engine. He is also redoing a house in [place] that is 4 stories high and has 2 1/2 bathrooms. They are planning on turning it into a bed and breakfast next year. Does have a barn also which he is redoing. UPDATE 04/07/2033 Still having shortness of breath with exertion; this is no worse and no better No chest pain No orthopnea, no paroxysmal tunnel dyspnea, no lower extremity edema UPDATE 05/10/2024 He has been having worsening shortness of breath over the past 6 months; however, he was has a history of COPD and does not use his inhalers as frequently as he should He denies chest pain. He denies chest pressure. He does not recall the symptoms he had prior to his PCI and stent placement. He states that he had a stroke at that time. Cardiology ROS: Review of Systems Constitutional: Positive for malaise/fatigue. Cardiovascular: Positive for dyspnea on exertion (improving) and leg swelling (resolves by morning). Musculoskeletal: Positive for arthritis, back pain and joint pain. All other systems reviewed and are negative. Past Medical History He has a past medical history of Angina pectoris (CMS/HCC), Atri (more content not included)... [facility] 05-10-2024 Note [facility] Cardiology Clinic Note Chief Complaint: Patient here for 1 year follow up CAD, SVT s/p ablation, hypertension, and PAD. He had routine labs w/ lipid in December 2023, and echo last month. Denies chest pain, palpitations, and LE edema. C/o worsening ALLISON and fatigue. Denies bleeding on Eliquis. Gets lightheaded upon standing. HPI: Sharon Guo is a 73 y.o. male New patient being seen via telephone call to establish care. He has prior hx of CAD w/ PCI, afib, SVT, CVA, COPD, and DM. He used to see [facility] cardiology in [place]. Then saw Dr. Mattson in [place]. Now going to establish care with [facility]. Says his BP averages around 130-140's systolic. Denies chest pain. Has ALLISON with stairs. Has intermittent LE edema. Feels palpitations at times. HPI: From prior records: Sharon Guo is a 72 y.o. male gentleman who [...] He built a tricycle out of a [employer] and sold it 2 weeks after he built it. He now bought a 52 [employer] with a short block. He is planning on putting it on a [employer] pickup chassis with a large block engine. He is also redoing a house in [place] that is 4 stories high and has 2 1/2 bathrooms. They are planning on turning it into a bed and breakfast next year. Does have a barn also which he is redoing. UPDATE 04/07/2033 Still having shortness of breath with exertion; this is no worse and no better No chest pain No orthopnea, no paroxysmal tunnel dyspnea, no lower extremity edema UPDATE 05/10/2024 He has been having worsening shortness of breath over the past 6 months; however, he was has a history of COPD and does not use his inhalers as frequently as he should He denies chest pain. He denies chest pressure. He does not recall the symptoms he had prior to his PCI and stent placement. He states that he had a stroke at that time. Cardiology ROS: Review of Systems Constitutional: Positive for malaise/fatigue. Cardiovascular: Positive for dyspnea on exertion (worsening). Musculoskeletal: Positive for arthritis, back pain and joint pain. All other systems reviewed and are negative. Past Medical History He has a past medical history of Angina pectoris (CMS/HCC), Atrial fibrillation (CMS/HCC), CAD (coronary artery (more content not included)... [facility] 01-26-2024 Note Chief Complaint consultation for colonoscopy [...] Oral, BID traZODONE (more content not included)... [facility] Comment on above: Result Comment: Elec tronically Signed By: SULTANA GATES, Ross Trejo\Date and Time Signed: 01/26/24 08:05 EDT 11-19-2022 Note CARDIAC STRESS TEST Requesting Physician: Procedure Date:11/19/2022 This was a Lexiscan Stress Test with myocardial perfusion imaging performed at the [facility] on 11/19/2022. Informed consent was obtained. [...] perfusion images will be reported separately. The [facility] 09-16-2021 Evaluation note Encounter Date Diagnosis [...] Patient care instructions given in writting by [facility] Care At Home document. Convrrt Other Evaluation + Plan note No data available for this section [facility] [place] Evaluation note* Diagnosis COVID documented in this encounter [facility] Work Phone: evaluation noteNo assessment information available [facility] Work Phone: Evaluation note* Diagnosis Encounter for screening for malignant neoplasm of colon- Primary Controlled type 2 diabetes mellitus without complication, without long-term current use of insulin (CMS/HCC) Hyperlipidemia, unspecified hyperlipidemia type (CMS/HCC) Diabetic polyneuropathy associated with type 2 diabetes mellitus (CMS/HCC) Chronic obstructive pulmonary disease, unspecified COPD type (CMS/HCC) Morbid obesity with BMI of 40.0-44.9, adult (CMS/HCC) Mild vascular dementia without behavioral disturbance, psychotic disturbance, mood disturbance, or anxiety (CMS/HCC) Depression, recurrent (CMS/HCC) Major depressive disorder, recurrent episode, unspecified Atrial fibrillation, unspecified type (CMS/HCC) Primary hypertension (CMS/HCC) Unspecified essential hypertension COPD with acute exacerbation (CMS/HCC)- Primary Diabetic polyneuropathy associated with type 2 diabetes mellitus (CMS/HCC)- Primary Chronic obstructive pulmonary disease, unspecified COPD type (CMS/HCC) Primary hypertension (CMS/HCC) Unspecified essential hypertension Atrial fibrillation, unspecified type (CMS/HCC) Controlled type 2 diabetes mellitus with diabetic polyneuropathy, without long- term current use of insulin (CMS/HCC) Hyperlipidemia, unspecified hyperlipidemia type (CMS/HCC) Encounter for screening colonoscopy Non-seasonal allergic rhinitis, unspecified trigger Controlled type 2 diabetes mellitus without complication, without long-term current use of insulin (CMS/HCC) Controlled type 2 diabetes mellitus with diabetic polyneuropathy, without long- term current use of insulin (CMS/HCC)- Primary Atrial fibrillation, unspecified type (CMS/HCC) Primary hypertension (CMS/HCC) Unspecified essential hypertension Mild vascular dementia without behavioral disturbance, psychotic disturbance, mood disturbance, or anxiety (CMS/HCC)- Primary Diabetic polyneuropathy associated with type 2 diabetes mellitus (CMS/HCC) Chronic obstructive pulmonary disease, unspecified COPD type (CMS/HCC) Primary hypertension (CMS/HCC) Unspecified essential hypertension Controlled type 2 diabetes mellitus with diabetic polyneuropathy, without long- term current use of insulin (CMS/HCC) Morbid obesity with BMI of 40.0-44.9, adult ([facility]) History of CVA (cerebrovascular accident) Transient ischemic attack (TIA), and cerebral infarction without residual deficits Controlled type 2 diabetes mellitus without complication, without long-term current use of insulin ([facility]) Hyperlipidemia, unspecified ([facility]) Type 2 diabetes mellitus without complications ([facility]) Gastro-esophageal reflux disease without esophagitis Esophageal reflux Mixed hyperlipidemia ([facility]) Mixed hyperlipidemia Type 2 diabetes mellitus with hyperglycemia, without long-term current use of insulin ([facility])- Primary Mixed hyperlipidemia ([facility]) Mixed hyperlipidemia Primary hypertension ([facility]) Unspecified essential hypertension Vitamin D deficiency Encounter for dietary consultation Class 3 severe obesity due to excess calories with serious comorbidity and body mass index (BMI) of 40.0 to 44.9 in adult ([facility]) [facility] - [facility]orted* Type Description Date Medical History DM2 Medical History stroke Medical History a-fib Medical History hypertension Surgical History cataract Surgical History heart stent Hospitalization History [email or web address] Other Hospital Discharge instructions No data available for this section General Surgery [place] Progress note No data available for this section General Surgery [place] Summary Purpose Family History No Family History Records FoundNo Family History Records FoundNo Family History Records FoundNo Family History Records FoundNo Family History Records FoundNo Family History Records Found No data available for this section No Family History Records FoundNo Family History Records FoundNo Family History Records Found Advance Directives No Advanced Directives Records FoundDocuments on File Type Date Recorded Patient Wardrobe Supervisor Expl anation Advance Directives and Living Will Power of Biochemistry Technician Latest Code Status on File Code [...] Documents on File Type Date Recorded Patient Wardrobe Supervisor Expl anation ACP-Advance Directive ACP-Power of Biochemistry Technician Latest Code Status on File Code [...] Diabetic / Low cholesterol Discharge Medication: Sharon Guo Home Medication Instructions YENNIFER:[id number] Printed on:05/31/19 0950 Medication Information apixaban (ELIQUIS) [...] EXTRACRANIAL BILAT STUDY Castillo Clark MD [address] [place] [address] [facility] [address] [place] [address] Status Reason Specialty Diagnoses / Procedures Re ferred By Contact Referred To Contact Closed Radiology Diagnoses 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) Procedures CT HEAD WO CONTRAST HC CTA HEAD W & W/O CONT HC CT BRAIN W/O CONTRAST Castillo Clark MD [address] [place] [phone] [facility] Ct Scan [address] [place] [address] Assessments Diagnosis 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) Additional Source Comments (unrecognized sect ion and content) No Status Records FoundNo Status Records FoundNo Status Records FoundNo Status Records FoundNo Status Records FoundNo Status Records FoundNo Status Records FoundNo Status Records FoundNo Status Records Found INFORMATION SOURCE (unrecogn ized section and content) DATE CREATED AUTHOR 03/25/2018 [facility] DATE CREATED AUTHOR AUTHOR'S ORGANIZ ATION 04/13/2018 [facility] DATE CREATED AUTHOR AUTHOR'S ORGANIZ ATION 07/20/2021 [facility] DATE CREATED AUTHOR AUTHOR'S ORGANIZ ATION 09/20/[address] [facility] DATE CREATED AUTHOR AUTHOR'S ORGANIZ ATION 11/07/2022 [facility] DATE CREATED AUTHOR AUTHOR'S ORGANIZ ATION 11/28/2022 [facility] DATE CREATED AUTHOR AUTHOR'S ORGANIZ ATION 01/26/2024 [facility] DATE CREATED AUTHOR AUTHOR'S ORGANIZ ATION 08/12/2024 [facility] DATE CREATED AUTHOR AUTHOR'S ORGANIZ ATION 08/30/2024 [facility] Reason for Visit (unrecogniz ed section and content) Status Reason Specialty Diagnoses / Procedures Referre d By Contact Referred To Contact Diagnoses SCREENING Procedures VA OFFICE/OUTPT VISIT,PROCEDURE ONLY VA COLONOSCOPY FLX DX W/COLLJ SPEC WHEN PFRMD COLONOSCOPY Back, MD Felix [address] [place] [address] [facility] Status Reason Specialty Diagnoses / Procedures Re ferred By Contact Referred To Contact Pending Review Vascular Lab Diagnoses 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) Procedures VL DUP CAROTID BILATERAL HC EXTRACRANIAL BILAT STUDY Castillo Clark MD [address] [place] [address] [address] [place] [address] [facility] [address] [place] [id number] Status Reason Specialty Diagnoses / Procedures Re ferred By Contact Referred To Contact Closed Radiology Diagnoses 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) Procedures CT HEAD WO CONTRAST HC CTA HEAD W & W/O CONT HC CT BRAIN W/O CONTRAST Castillo Clark MD [address] [place] [address] Dr [address] [place] [address] [facility] [address] [place] [address] Reason Comments Diabetes [facility] 1 MONTH AGO AIC 8.7% Specialty Diagnoses / Procedures Referred By Contac t Referred To Contact Endocrinology Diagnoses Diabetes mellitus type 2, noninsulin dependent (CMS/HCC) Procedures VA OFFICE/OUTPATIENT NEW HIGH MDM 60 MINUTES Shima Resendez NP [address] [place] [address] Phone: tel: fax: Renetta Lux MD [address] [place] [address] Phone: tel: fax: Referral ID Status Reason Start Date Expiration Date V isits Requested Visits Authorized [id number] Closed Specialty Services Required 06/28/2024 12/25/2024 1 1 Care Teams (unrecognized sec tion and content) Team Status: Inactive Member Role Status Dates Shaikh Dali MD Attending Provider Active [employer] [address] Sql Developer Relationship Specialty Start Date End Date Shaikh Mcnally MD [address] [place] [phone] PCP - Devoted 06/06/22 Demetrio Lowry MD [address] [place] [address] PCP - General Family Medicine 05/11/24 Shima Resendez NP [address] [place] [phone] Nurse Practitioner Family Medicine 05/11/24 Nichol Lee LPN Licensed Practical Nurse Family Medicine 06/18/[address] Sql Developer Relationship Specialty Start Date End Date Shaikh Mcnally MD [address] [place] [phone] PCP - Devoted 06/06/22 10/05/24 Demetrio Lowry MD [address] [place] [phone] PCP - General Family Medicine 05/11/24 Shima Resendez, ANA [address] [place] [address] Nurse Practitioner Family Medicine 05/11/24 Nichol Lee LPN Licensed Practical Nurse Family Medicine 06/18/[address] Sql Developer Relationship Specialty Start Date End Date Shaikh Mcnally MD [address] [place] [phone] PCP - Devoted 06/06/22 10/05/24 Demetrio Lowry MD [address] [place] [address] PCP - General Family Medicine 05/11/24 Shima Resendez NP [address] [place] [address] Nurse Practitioner Family Medicine 05/11/24 Nichol Lee LPN Licensed Practical Nurse Family Medicine 06/18/24 Goals (unrecognized section and content) Goals may [...] BE BASED ON THE PRIMARY CLINICAL RECORDS. [address] [facility]. provides no warranty or guarantee of the accuracy or completeness of information in this document.
[2024-08-30 11:15] LABS: Anion Gap 12.7; BUN Creatinine Ratio 14.9; Calcium 8.7 mg/dL (8.5-10.1); Carbon Dioxide 31.5 mmol/L (21.0-32.0); Chloride 102 mmol/L (98-107); Estimated GFR (African America 54 (>=60 mL/min/1.73m^2); Estimated GFR (Non-African Ame 45 (>=60 mL/min/1.73m^2); Glucose 131 mg/dL (74-106); Potassium 4.2 mmol/L (3.5-5.1); Sodium 142 mmol/L (136-145)
== END 2024-08-30 10:33 | disposition home or self-care (01) ==
LOC: LAB 10:33
PROVIDERS: Visit Provider Internal Medicine Interventional Cardiology
DX: I11.9 Hypertensive heart disease without heart failure (principal)
CPT/HCPCS: 36415; 80048

== ENCOUNTER 2024-09-15 10:40 | Outpatient (OUT) | payer OTHER, SELFPAY ==
--- OUTSIDE RECORDS SUMMARY | 2024-09-15 11:06 | XMS_ITS | CCD ---
Author Organization [facility] Care Team Providers Care Supervisor Yard Name Role Phone PHYSICIAN, DEFAULT Unavailable Unavailable PHYSICIAN, DEFAULT Unavailable Unavailable HAKAM, NENA Unavailable Unavailable HAKAM, NENA Unavailable Unavailable ENRIQUETA, LESLI Unavailable Unavailable KABOUR, AMEER Unavailable Unavailable RAMIREZ, HOSSAMELDIN I Unavailable Unavailab le ENRIQUETA, LESLI Unavailable Unavailable RAMIREZ, HOSSAMELDIN I Unavailable Unavailab le RAMIREZ, HOSSAMELDIN I Unavailable Unavailab Eusebio Marrero Primary Care Provider [phone] Eusebio Daniels MD Primary Care Provider EUSEBIO DANIELS Primary Care Unavailable EUSEBIO DANIELS Referring Unavailable EUSEBIO DANIELS Primary Care Unavailable EUSEBIO DANIELS Referring Unavailable EUSEBIO DANIELS Primary Care Unavailable Pat Jesus Unavailable MD Indigo Mcnally Attending Provider Shaikh Mcnally Attending Unavailable Shaikh Mcnally Admitting Unavailable DR MP RODRIGES Primary Care Unavailable GLADIS ., CANDELARIO Admitting Unavailable CANDELARIO HERMOSILLO Attending Unavailable ZEESHAN HERMOSILLOID Consulting Unavailable Nikunj Pino Consulting Unavailable ELTAHAWY, EHAB Admitting Unavailable ELTAHAWY, EHAB Attending Unavailable SHAIKH Юлия MCNALLY Primary Care Unavailable ELTAHAWY, EHAB Consulting Unavailable ELTAHAWY, EHAB Admitting Unavailable ELTAHAWY, EHAB Attending Unavailable SHAIKH Юлия MCNALLY Primary Care Unavailable Kate Cabrera Primary Care Physician [phone] SHAIKH MCNALLY Referring Unavailable Ross WEINBERG Attending Unavailable Shaikh Mcnally MD Unavailable Demetrio Lowry MD Primary Care Provider [phone] Dipti PEREZ, Shima Unavailable [phone] Nichol Lee LPN Unavailable Unavailable Shaikh Mcnally MD Unavailable SHAIKH MCNALLY Attending Unavailable DALI, Attending Unavailable SHAIKH MCNALLY Attending Unavailable DALI, Attending Unavailable SHAIKH MCNALLY Attending Unavailable SHIMA RESENDEZ Attending Unavailabl e PIYUSH SANDERS Attending Unavailable SHIMA RESENDEZ Referring Unavailabl e RENETTA LUX Attending Unavailable SHIMA RESENDEZ Referring Unavailabl e ELTASHELBY, EHAB Attending Unavailable ELTAHAWCarmencita, EHAB Attending Unavailable Gina Li MA Unavailable Unavailable Joaquin SUPERVISOR CELL EFFICIENCY, Ardana Unavailable Unavailable Analy SUPERVISOR CELL EFFICIENCY, Ardana Unavailable Unavailable Allergies Allergy Classification Reported Allergen(s) Allergy Type Date of Onset Reaction(s) Facility (1 source) No Known Medication Allergies; Translations: [No Known Medication Allergies] Propensity to adverse reactions (disorder) [facility] Repository Medications Current Medications Medication Drug Class(es) Dates Sig (Normalized) Sig (Original) Albuterol (12 sources) beta2-Adrenergic Agonist Start: 12-19-2023 take 2 [...] / ipratropium bromide 0.167 mg/ml inhalation solution (11 sources) Anticholinergic, beta2-Adrenergic Agonist Start: 12-19-2023 DuoNeb 2.5 mg-0 .5 mg/3 mL Soln-Inh 3 mL, NEB, QID, Refill(s) 0 Start Date: 12/19/23 Status: Ordered ipratropium-albu terol (Duo-Neb) 0.5-2.5 mg/3 mL nebulizer solution Take 3 mL by nebulization in the morning and 3 mL at noon and 3 mL in the evening and 3 mL before bedtime. Active apixaban 5 mg oral tablet (16 sources) Factor Xa Inhibitor Start: 12-19-2023 take 1 tablet by mouth twice daily Eliquis 5 mg oral tablet 5 mg = 1 tab(s), Oral, BID, Refills(s) 0 Start Date: 12/19/23 Status: Ordered Eliquis Active aspirin 81 mg delayed release oral tablet (18 sources) Platelet Aggregation Inhibitor, Nonsteroidal Anti-inflammatory Drug Start: 12-19-2023 End: 06-17-2024 take 1 tablet by mouth once daily aspirin 81 MG EC tablet Indications: History of CVA (cerebrovascular accident) , Hyperlipidemia, unspecified (CMS/HCC) Take 1 tablet (81 mg) by mouth Daily 90 tablet 2 06/17/2024 Active Aspirin 81 Activ e atorvastatin 80 mg oral tablet (18 sources) HMG-CoA Reductase Inhibitor Start: 04-29-2024 End: 06-17-2024 take 1 tablet by mouth once [...] hyperglycemia, without long-term current use of insulin ([facility]) Use to test daily 1 kit 0 03/29/2020 Active calcium chloride 0.0014 meq/ml / potassium chloride 0.004 meq/ml / sodium chloride 0.103 meq/ml / sodium lactate 0.028 meq/ml injectable solution (1 source) Start: 05-31-2019 lactated ringers infusion cholecalciferol 0.05 mg oral capsule (14 sources) Vitamin D take 1 capsule by mouth in the morning cholecalciferol (Vitamin D-3) 50 MCG (2000 UT) capsule Take 2,000 Units by mouth in the morning. Active take 1 capsule by mouth once giovanni ly Cholecalciferol (VITAMIN D) 2000 units CAPS capsule Take 1 capsule by mouth daily 0 Active dapagliflozin 5 mg oral tablet (5 sources) Sodium-Glucose Cotransporter 2 Inhibitor Start: 08-10-2024 End: 02-06-2025 take 1 tablet by mouth once daily dapagliflozin (Farxiga) 5 MG Indications: Type 2 diabetes mellitus with hyperglycemia, without long-term current use of insulin ([facility]) Take 1 tablet (5 mg) by mouth Daily 90 tablet 1 08/10/2024 02/06/2025 Active dilTIAZem hydrochloride 30 mg oral tablet (16 sources) Calcium Channel Tiffani Start: 12-19-2023 take [...] Active donepezil hydrochloride 10 mg oral tablet (13 sources) Start: 06-04-2021 take 1 tablet by mouth once daily at bedtime Aricept 10 mg Tab 10 mg = 1 tab(s), Oral, Once a day (at bedtime), Refills(s) 0 Start Date: 12/19/23 Status: Ordered Aricept Active fluticasone propionate 0.05 mg/actuat metered dose nasal spray (10 sources) Corticosteroid Start: 12-16-2023 take 2 spray(s) nasal route once daily fluticasone (Flonase) 50 MCG/ACT nasal spray Indications: Non-seasonal allergic rhinitis, unspecified trigger Administer 2 sprays into each nostril Daily Shake gently. Before first use, prime pump. After use, clean tip and replace cap. 16 g 2 12/16/2023 Active Fluticasone-Umecl idin-Vilant (Trelegy Ellipta) 200-62.5-25 MCG/ACT aerosol powder (10 sources) Start: 01-28-2024 take 1 puff(s) by inhalation once daily Fluticasone-Umeclid in-Vilant (Trelegy Ellipta) 200-62.5-25 MCG/ACT aerosol powder Indications: Chronic obstructive pulmonary disease, unspecified COPD type (CMS/HCC) Inhale 1 puff Daily 3 each 1 01/28/2024 Active furosemide 20 mg oral tablet (9 sources) Loop Diuretic Start: 05-10-2024 End: 05-10-2025 take 1 tablet by mouth in the morning furosemide (Lasix) 20 MG tablet Take 20 mg by mouth in the morning. 05/10/2024 05/10/2025 Active gabapentin 300 mg oral capsule (15 sources) Anti-epileptic Agent Start: 02-16-2024 End: 09-15-2024 take 1 capsule by mouth [...] Start: 12-19-2023 take 1 capsule by mo uth three times daily gabapentin 300 mg Cap 300 mg = 1 cap(s), Oral, TID, Refills(s) 0 Start Date: 12/19/23 Status: Ordered Start: 03-20-2021 End: 09-16-2021 gabapentin (NEURONTIN) 300 M G capsule Take 1 capsule by mouth nightly for 180 days. Intended supply: 30 days 30 capsule 5 03/20/2021 09/16/2021 Active Gabapentin Activ e glimepiride 2 mg oral tablet (20 sources) Sulfonylurea Start: 08-10-2024 End: 02-06-2025 take 1 tablet by mouth in the morning glimepiride (Amaryl) 2 MG tablet Indications: Type 2 diabetes mellitus with hyperglycemia, without long-term current use of insulin (CMS/HCC) Take 1 tablet (2 mg) by mouth in the morning and 1 tablet (2 mg) before bedtime. 180 tablet 1 08/10/2024 02/06/2025 Active Start: 03-23-2024 End: 08-10-2024 take 1 tablet by mouth every twelve hours at mealtime glimepiride (Amaryl) 4 MG tablet Indications: Type 2 diabetes mellitus without complications (CMS/HCC) TAKE 1 TABLET BY MOUTH EVERY 12 HOURS WITH MEALS 180 tablet 1 06/17/2024 Active Start: 12-19-2023 take 1 tablet by hector th once daily Amaryl 2 mg Tab 2 [...] hyperglycemia, without long-term current use of insulin ([facility]) Take 1 tablet by mouth [...] Mucinex Active loratadine 10 mg oral tablet (10 sources) Start: 03-14-2024 End: 09-10-2024 take 1 [...] hyperglycemia, without long-term current use of insulin ([facility]) TAKE 1 TABLET BY MOUTH TWICE A DAY WITH MEALS 180 tablet 1 02/09/2021 Active Start: 09-27-2019 take 1 tablet by hector th twice daily at mealtime metFORMIN (GLUCOPHAGE) 1000 MG tablet Indications: Controlled type 2 diabetes mellitus with hyperglycemia, without long-term current use of insulin ([facility]) Take 1 tablet by mouth 2 times daily (with meals) 60 tablet 5 09/27/2019 Active Start: 04-01-2019 take 1 tablet by hector th twice daily at mealtime metFORMIN (GLUCOPHAGE) 1000 MG tablet Indications: Controlled type 2 diabetes mellitus with hyperglycemia, without long-term current use of insulin ([facility]) Take 1 tablet by mouth 2 times daily (with meals) 60 tablet 5 04/01/2019 Active metFORMIN HCl Ac tive nitroglycerin 0.4 mg sublingual tablet (13 sources) Nitrate Vasodilator Start: 12-16-2019 nitroglyce rin 0.4 mg sublingual Tab 0.4 mg = 1 tab(s), SubLingual, q5min, PRN for chest pain, Refills(s) 0 Start Date: 12/19/23 Status: Ordered Nitroglycerin Ac tive omeprazole 20 mg delayed release oral capsule (18 sources) Proton Pump Inhibitor Start: 02-16-2024 End: 06-17-2024 take 1 capsule by mouth once daily omeprazole (PriLOSEC) [address] capsule Indications: Gastro-esophageal reflux disease without esophagitis , Esophageal reflux Take 1 capsule (20 mg) by mouth Daily 100 capsule 06/17/2024 Active Start: 12-19-2023 take 1 capsule by mo [facility] once daily omeprazole 20 mg Cap-DR 20 mg = 1 cap(s), Oral, Daily, Refills(s) 0 Start Date: 12/19/23 Status: Ordered Start: 03-15-2021 take 1 capsule by mo ut once daily omeprazole (PRILOSEC) 20 MG delayed release capsule TAKE 1 CAPSULE BY MOUTH EVERY DAY 90 capsule 1 03/15/2021 Active Start: 12-24-2018 take 1 capsule by mo [facility] once daily omeprazole (PRILOSEC) 20 MG delayed release capsule Take 1 capsule by mouth daily 90 capsule 3 12/24/2018 Active Omeprazole Activ e predniSONE 20 mg oral tablet (1 source) Start: 09-16-2021 take 1 tablet by mouth every twelve hours predniSONE 20 MG 1 tablet Orally bid for 5 day(s) Sep, Active primidone 50 mg oral tablet (12 sources) Anti-epileptic Agent Start: 12-19-2023 take 1 tablet by mouth once daily at bedtime Mysoline 50 mg Tab 50 mg = 1 tab(s), Oral, Once a day (at bedtime), Refills(s) 0 Start Date: 12/19/23 Status: Ordered Primidone Active ramipril 10 mg oral capsule (16 sources) Angiotensin Converting Enzyme Inhibitor Start: 12-19-2023 [...] Start: 12-24-2018 take 1 capsule by mo [facility] twice daily ramipril (ALTACE) 5 MG capsule Take 1 capsule by mouth 2 times daily 180 capsule 3 12/24/2018 Active Ramipril Active semaglutide 14 mg oral tablet (12 sources) Start: 12-16-2023 End: 12-14-2024 take 1 tablet by mouth once daily semaglutide (Rybelsus) 14 MG tablet Indications: Controlled type 2 diabetes mellitus without complication, without long-term current use of insulin (CMS/HCC) Take 1 tablet (14 mg) by mouth Daily 90 tablet 1 06/17/2024 12/14/2024 Active SITagliptin 100 mg oral tablet (12 sources) Dipeptidyl Peptidase 4 Inhibitor Start: 04-29-2024 End: 09-15-2024 take 1 tablet by mouth [...] mL sotalol hydrochloride 120 mg oral tablet (16 sources) Antiarrhythmic Start: 12-19-2023 take 1 tablet by mouth twice daily sotalol 120 mg Tab 120 mg = 1 tab(s), Oral, BID, Refills(s) 0 Start Date: 12/19/23 Status: Ordered Sotalol HCl Acti ve traZODone hydrochloride 50 mg oral tablet (11 sources) Serotonin Reuptake Inhibitor Start: 08-14-2023 End: [...] actuat umeclidinium 0.0625 mg/actuat dry powder inhaler (9 sources) Anticholinergic take 1 puff(s) by inhalation in the morning Umeclidinium [place] (Incruse Ellipta) 62.5 MCG/ACT aerosol powder Inhale [...] Date Documented Date Episodic/Chronic Acute cerebrovascular disease (14 sources) Cerebral infarction; Translations: [Cerebral infarction, unspecified] Onset: 08-06-2015 08-06-2015 Chronic Cardiac dysrhythmias (18 sources) Unspecified atrial fibrillation; Translations: [Supraventricular tachycardia] Onset: 07-10-2017 08-02-2017 Chronic Chronic obstructive pulmonary disease and bronchiectasis (20 sources) Chronic obstructive lung disease; Translations: [Chronic obstructive pulmonary disease, unspecified] Onset: 03-29-2020 03-29-2020 Chronic Congestive heart failure; nonhypertensive (2 sources) Unspecified diastolic (congestive) heart failure; Translations: [Unspecified diastolic (congestive) heart failure] Onset: 05-10-2024 Chronic Coronary atherosclerosis and other heart disease (16 sources) Coronary arteriosclerosis; Translations: [Atherosclerotic heart disease of [place] coronary artery without angina pectoris] Onset: 01-20-2012 01-20-2012 Chronic Delirium, dementia, and amnestic and other cognitive disorders (20 sources) Alzheimer's disease; Translations: [Alzheimer's disease, unspecified] Onset: 05-10-2021 05-10-2021 Chronic Diabetes mellitus with complications (15 sources) Polyneuropathy due to diabetes mellitus; Translations: [Polyneuropathy due to type 2 diabetes mellitus] Onset: 2023 12-19-2023 Chronic Diabetes mellitus without complication (20 sources) Type 2 diabetes mellitus; Translations: [Type 2 diabetes mellitus without complications] Onset: 04-18-2015 08-02-2017 Chronic Disorders of lipid metabolism (20 sources) Hyperlipidemia; Translations: [Hyperlipidemia, unspecified] Onset: 08-02-2017 08-02-2017 Chronic Diverticulosis and diverticulitis (1 source) Diverticular disease 01-20-2024 Chronic Esophageal disorders (4 sources) Gastroesophageal reflux disease without esophagitis; Translations: [Gastro-esophageal reflux disease without esophagitis] 06-17-2024 Chronic Essential hypertension (19 sources) Hypertensive disorder; Translations: [Essential (primary) hypertension] Onset: 08-02-2017 08-02-2017 Chronic Glaucoma (4 sources) Glaucoma; Translations: [Unspecified glaucoma] 01-20-2012 Chronic Hypertension with complications and secondary hypertension (2 sources) Hypertensive heart disease without heart failure; Translations: [Hypertensive heart disease without heart failure] Onset: 08-02-2024 Chronic Mood disorders (10 sources) Recurrent depression; Translations: [Major depressive disorder, recurrent, unspecified] Onset: 2023 2023 Chronic Nutritional deficiencies (12 sources) Vitamin D deficiency; Translations: [Vitamin D [...] Episodic Other nutritional; endocrine; and metabolic disorders (14 sources) Body mass index 40+ - severely obese; Translations: [Morbid (severe) obesity due to excess calories] Onset: 03-29-2020 03-29-2020 Chronic Other nutritional; endocrine; and metabolic disorders (1 source) Morbid obesity 12-19-2023 Chronic Other nutritional; endocrine; and metabolic disorders (10 sources) Obesity caused by energy imbalance; Translations: [Morbid (severe) obesity due to excess calories] Onset: 12-16-2023 12-16-2023 Chronic Other nutritional; endocrine; and metabolic disorders (2 sources) Severe obesity; Translations: [Class 3 severe obesity due to excess calories with serious comorbidity and body mass index (BMI) of 40.0 to 44.9 in adult ([facility])] 08-10-2024 Chronic Other upper respiratory disease (11 sources) Allergic rhinitis; Translations: [Other allergic rhinitis] [...] Resolved: 09-16-2021 Episodic Deficiency and other anemia (10 sources) Normocytic anemia; Translations: [Anemia, unspecified] Onset: 10-15-2023 10-15-2023 Episodic Immunizations and screening for infectious disease (1 source) Contact with and (suspected) exposure to other viral communicable diseases Onset: 09-16-2021 Resolved: 09-16-2021 Episodic Mood disorders (10 sources) Mood disorders Onset: 2023 2023 Nonspecific chest pain (8 sources) Chest pain; Translations: [Chest pain, unspecified] Onset: 04-15-2014 Resolved: 04-13-2018 04-13-2018 Episodic Open wounds of extremities (10 sources) Laceration of hand without foreign body; Translations: [Laceration without foreign body of right hand, initial encounter] Onset: 04-06-2024 04-06-2024 Episodic Other aftercare (1 source) 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; Translations: [TRANSFORMATION COACH CURRNT USE ANTICOAGULANTS] Onset: 05-06-2022 Episodic Other aftercare (1 source) [facility] (current) use of aspirin; Translations: [JAIL CURRENT USE OF ASPIRIN] Onset: 05-06-2022 Episodic Other aftercare (1 source) Other halfway (current) drug therapy; Translations: [OTH JAIL CURRENT DRUG THERAPY] Onset: 05-06-2022 Episodic Other circulatory disease (13 sources) H/O: atrial fibrillation; Translations: [Personal history of other diseases of the circulatory system] Onset: 08-02-2017 07-26-2019 Episodic Other circulatory disease (13 sources) History of cerebrovascular accident; Translations: [Personal history of transient ischemic attack (TIA), and cerebral infarction without residual deficits] Onset: 03-16-2024 12-19-2023 Episodic Other screening for suspected conditions (not mental disorders or infectious disease) (20 sources) Patient encounter status; Translations: [Encounter for screening for malignant neoplasm of colon] Onset: 2023 2023 Episodic Unclassified (10 sources) Onset: 02-11-2024 02-11-2024 Results Test Name Value Interpretation Reference Range Facility ALL BASIC METABOLIC PANELon 08-30-2024 Anion gap [Moles/Vol] 12.7 mmol/L [facility] Calcium [Mass/Vol] 8.7 mg/dL 8.5 - 10. 1 mg/dL [facility] Chloride [Moles/Vol] 102 mmol/L 98 - 10 7 mmol/L [facility] CO2 [Moles/Vol] 31.5 mmol/L 21.0 - 32.0 mmol/L [facility] Creatinine [Mass/Vol] 1.54 mg/dL High 0.70 - 1.30 mg/dL [facility] GFR/1.73 sq M.predicted CKD-EPI (S/P/Bld) [Vol rate/Area] 54 Low >=60 mL/min/1.73 m 2 [facility] Glucose [Mass/Vol] 131 mg/dL High 74 - 106 mg/dL [facility] Interpretation and review of laboratory results Abnormal [facility] Potassium [Moles/Vol] 4.2 mmol/L 3.5 - 5.1 mmol/L [facility] Sodium [Moles/Vol] 142 mmol/L 136 - 145 mmol/L [facility] TBH EGFR-NON AF CUBAN 45 Low >=60 mL/min/1.73 m 2 [facility] Urea nitrogen [Mass/Vol] 23 mg/dL High 7.0 - 18.0 mg/dL [facility] Urea nitrogen/Creatinine [Mass ratio] 14.9 mg/mg [facility] 36on 08-24-2024 36 Patient called back and I informed him of message from Dr. Mendez. He will have labs on Friday, 08/30. 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 [facility] 36 Regarding lab result s from 08/20/2024: MD Dalila Trujillo MA Please have him hold [employer] and recheck a BMP in 5 days Thanks Spoke with patient's and she will have him return my call. [facility] Orders Onlyon 08-24-2024 Orders Only [id number] Sharon Guo 1950 M Date Provider Department Center 08/24/2024 8-DALILA VELASCO EDU [facility] Family History Problem Relation Age of Onset Coronary artery disease Maternal Grandmother Coronary artery disease Maternal Grandfather Cerebral aneurysm Paternal Grandmother Family Status - Relation Status Age at Maternal Grandmother Maternal Grandfather Paternal Grandmother [facility] ALL BASIC METABOLIC PANELon 08-20-2024 Anion gap [Moles/Vol] 13.1 mmol/L [facility] Calcium [Mass/Vol] 9.5 mg/dL 8.5 - 10. 1 mg/dL [facility] Chloride [Moles/Vol] 102 mmol/L 98 - 10 7 mmol/L [facility] CO2 [Moles/Vol] 31.2 mmol/L 21.0 - 32.0 mmol/L [facility] Creatinine [Mass/Vol] 1.46 mg/dL High 0.70 - 1.30 mg/dL [facility] GFR/1.73 sq M.predicted CKD-EPI (S/P/Bld) [Vol rate/Area] 57 Low >=60 mL/min/1.73 m 2 [facility] Glucose [Mass/Vol] 137 mg/dL High 74 - 106 mg/dL [facility] Interpretation and review of laboratory results Abnormal [facility] Potassium [Moles/Vol] 4.3 mmol/L 3.5 - 5.1 mmol/L [facility] Sodium [Moles/Vol] 142 mmol/L 136 - 145 mmol/L [facility] TBH EGFR-NON AF CUBAN 47 Low >=60 mL/min/1.73 m 2 [facility] Urea nitrogen [Mass/Vol] 21 mg/dL High 7.0 - 18.0 mg/dL [facility] Urea nitrogen/Creatinine [Mass ratio] 14.4 mg/mg [facility] Glucose (Bld) [Mass/Vol]on 10-10-2023 Glucose Blood, POC 178 mg/dL [facility] Office Visiton 08-02-2024 Follow-up visit [id number] Sharon Guo 1950 [facility] Provider Department Center 08/02/2024 CHALO GOMEZ EDU [facility] Family History Problem Relation Age of Onset Coronary artery disease Maternal Grandmother Coronary artery disease Maternal Grandfather Cerebral aneurysm Paternal Grandmother Family Status - Relation Status Age at Maternal Grandmother Maternal Grandfather Paternal Grandmother Level of Service:20390 [place] OFFICE/OUTPATIENT ESTABLISHED MOD MDM 30 MIN Normal [facility] Office Visiton 05-10-2024 Follow-up visit [id number] Sharon Guo 1950 [facility] Provider Department Center 05/10/2024 CHALO GOMEZ EDU [facility] Family History Problem Relation Age of Onset Coronary artery disease Maternal Grandmother Coronary artery disease Maternal Grandfather Cerebral aneurysm Paternal Grandmother Family Status - Relation Status Age at Maternal Grandmother Maternal Grandfather Paternal Grandmother Level of Service:54652 [place] OFFICE/OUTPATIENT ESTABLISHED MOD MDM 30 MIN Normal [facility] Facesheeton 01-21-2024 Facesheet [id number]. [id number] [facility] Ambulatory Visit Summaryon 0 4- Ambulatory Visit Summary SHARON GUO :1950 Visit [...] for choosing us for your care. Normal [facility] Reminderson 01-20-2024 Reminders - From: Day Machado LPN To: N - Clinical; Sent: 01/20/2024 16:21:49 EDT Show up: 05/06/2029 07:00:00 EDT Subject: colonoscopy recall Due Date/Time: 05/31/2029 07:00:00 EDT Reminder/Recall Patient due for screening colonoscopy 05/2029. Normal [facility] Physician Referralon 024 Physician Referral [id number] Normal [facility] NM STRESS/REST MULTIon 11-19 NM STRESS/REST MULTI Patient: SHARON GUO Exam Date: 11/19/2022 : 1950 Gender:M Ordering : DR CHALO MENDEZ M.D. Admission #: [id number] Family : Order #: [id number] CLICK HERE TO VIEW EXAM RADIOLOGY REPORT [...] Cotter M.D. on 11/27/2022 at 15:02 Normal [facility] A1C with Estimated Average Koffi stuart 10-29-2022 Glucose [Mass/Vol] 169 mg/dL Normal [facility] Comment on above: Result Comment: PERF ORMED BY: [place] [address] PATHOLOGIST BOX PULLER WINTER RODRIGUEZ M.D. Performed By: #### U RMACRERAT, CBC, A1C WT eA, LIPID, CMP #### [facility] [address] [place] [address] HbA1c (Bld) [Mass fraction] 7.5 % High 4.3-5.6 [facility] Comment on above: Result Comment: Incr eased risk for diabetes: 5.7 - 6.4 diabetes: >6.4 glycemic control for adults with diabetes: <7.0 Performed By: #### U RMACRERAT, CBC, A1C WTH eA, LIPID, CMP #### [facility] [address] [place] [address] Albumin [Mass/volume] in Ser um or PlasmaOrdered By: Shaikh Dali on 10-29-2022 Albumin [Mass/Vol] 3.8 g/dL 3.2-5.5 [facility] Basophils Auto (Bld) [#/Vol] Ordered By: Shaikh Dali on 10-29-2022 Basophils (Bld) [#/Vol] 0.1 10*3/uL 0.0-0.2 [facility] Basophils/100 WBC Auto (Bld) Ordered By: Shaikh Dali on 10-29-2022 Basophils/100 WBC (Bld) 0.7 % . F [facility] Cholesterol [Mass/volume] in Serum or PlasmaOrdered By: Shaikh Dali on 10-29-2022 Cholesterol [Mass/Vol] 147 mg/dL 140-200 [facility] Comment on above: Chol less than 200 m g/dl low riskChol 201-239 mg/dl borderline riskChol 240 mg/dl and greater high risk Cholesterol in LDL Calc [Mas s/Vol]Ordered By: Shaikh Dali on 10-29-2022 Cholesterol in LDL [Mass/Vol] 62 mg/dL 0-100 [facility] Comment on above: LDL ATP III CLASSIFI CATIONLDL less than 100 mg/dL OptimalLDL 100-129 mg/dL Near or above optimalLDL 130-159 mg/dL Borderline highLDL 160-189 mg/dL HighLDL greater than 189 mg/dL Very high Cholesterol in VLDL Calc [Ma ss/Vol]Ordered By: Shaikh Dali on 10-29-2022 Cholesterol in VLDL [Mass/Vol] 57 mg/dL [facility] Complete Blood Count Auto Di ffon 10-29-2022 Basophils (Bld) [#/Vol] 0.1 10*3/uL Normal 0.0-0.2 [facility] Comment on above: Result Comment: PERF ORMED BY: [place] [address] PATHOLOGIST BOX PULLER WINTER RODRIGUEZ M.D. Performed By: #### U RMACRERAT, CBC, A1C WTH eA, LIPID, CMP #### [facility] [address] Basophils/100 WBC (Bld) 0.7 % Normal . [facility] Comment on above: Performed By: #### U RMACRERAT, CBC, A1C WTH eA, LIPID, CMP #### [facility] [address] [place] [address] [place] Eosinophils (Bld) [#/Vol] 0.5 10*3/uL High 0.0-0.45 [facility] Comment on above: Performed By: #### U RMACRERAT, CBC, A1C WTH eA, LIPID, CMP #### [address] Eosinophils/100 WBC (Bld) 5.3 % Normal . [facility] Comment on above: Performed By: #### U RMACRERAT, CBC, A1C WTH eA, LIPID, CMP #### [address] Erythrocyte distribution width (RBC) [Ratio] 13.7 % Normal 12.0-14.8 [facility] Comment on above: Performed By: #### U RMACRERAT, CBC, A1C WTH eA, LIPID, CMP #### [address] Hematocrit (Bld) [Volume fraction] 44.8 % Normal 38.8-50.0 [facility] Comment on above: Performed By: #### U RMACRERAT, CBC, A1C WTH eA, LIPID, CMP #### [address] Hemoglobin (Bld) [Mass/Vol] 14.5 g/dL Normal 13.0-17.0 [facility] Comment on above: Performed By: #### U RMACRERAT, CBC, A1C WTH eA, LIPID, CMP #### [address] Lymphocytes (Bld) [#/Vol] 2.1 10*3/uL Normal 1.00-4.8 [facility] Comment on above: Performed By: #### U RMACRERAT, CBC, A1C WTH eA, LIPID, CMP #### [address] Lymphocytes/100 WBC (Bld) 21.4 % Normal . [facility] Comment on above: Performed By: #### U RMACRERAT, CBC, A1C WTH eA, LIPID, CMP #### [address] MCH (RBC) [Entitic mass] 27.5 pg Normal 27.5-35.2 [facility] Comment on above: Performed By: #### U RMACRERAT, CBC, A1C WTH eA, LIPID, CMP #### [facility] [address] MCV (RBC) [Entitic vol] 84.7 fL Normal 83.5-101 [facility] Comment on above: Performed By: #### U RMACRERAT, CBC, A1C WTH eA, LIPID, CMP #### [facility] [address] Mean Corpuscular HGB Conc 32.5 g/dL Normal 32.5-35.6 [facility] Comment on above: Performed By: #### U RMACRERAT, CBC, A1C WTH eA, LIPID, CMP #### [facility] [address] Monocytes (Bld) [#/Vol] 0.7 10*3/uL Normal 0.0-0.8 [facility] Comment on above: Performed By: #### U RMACRERAT, CBC, A1C WTH eA, LIPID, CMP #### [address] Monocytes/100 WBC (Bld) 7.2 % Normal . [facility] Comment on above: Performed By: #### U RMACRERAT, CBC, A1C WTH eA, LIPID, CMP #### [address] Neutrophils (Bld) [#/Vol] 6.4 10*3/uL Normal 1.8-7.7 [facility] Comment on above: Performed By: #### U RMACRERAT, CBC, A1C WTH eA, LIPID, CMP #### [place] [address] [place] Neutrophils/100 WBC (Bld) 65.4 % Normal . [facility] Comment on above: Performed By: #### U RMACRERAT, CBC, A1C WTH eA, LIPID, CMP #### [address] NRBC% 0.2 /100{WBC} Normal 0-0.5 [facility] Comment on above: Performed By: #### U RMACRERAT, CBC, A1C WTH eA, LIPID, CMP #### [facility] [address] Platelet mean volume (Bld) [Entitic vol] 10.2 fL High 6.6-10.1 [facility] Comment on above: Performed By: #### U RMACRERAT, CBC, A1C WTH eA, LIPID, CMP #### [facility] [address] Platelets (Bld) [#/Vol] 235 10*3/uL Normal 150-450 [facility] Comment on above: Performed By: #### U RMACRERAT, CBC, A1C WTH eA, LIPID, CMP #### [facility] [address] RBC (Bld) [#/Vol] 5.28 10*6/uL Normal 3.90-5.60 [facility] Comment on above: Performed By: #### U RMACRERAT, CBC, A1C WTH eA, LIPID, CMP #### [facility] [address] WBC (Bld) [#/Vol] 9.8 10*3/uL Normal 4.1-10.5 [facility] Comment on above: Performed By: #### U RMACRERAT, CBC, A1C WTH eA, LIPID, CMP #### [address] Comprehensive Metabolic Pane concha 10-29-2022 Albumin [Mass/Vol] 3.8 g/dL Normal 3.2-5.5 [facility] Comment on above: Performed By: #### U RMACRERAT, CBC, A1C WTH eA, LIPID, CMP #### [facility] [address] Albumin/Globulin [Mass ratio] 1.3 {ratio} Normal [facility] Comment on above: Performed By: #### U RMACRERAT, CBC, A1C WTH eA, LIPID, CMP #### [facility] [address] ALP [Catalytic activity/Vol] 73 U/L Normal 32-92 [facility] Comment on above: Performed By: #### U RMACRERAT, CBC, A1C WTH eA, LIPID, CMP #### [facility] [address] ALT [Catalytic activity/Vol] 42 U/L Normal 10-60 [facility] Comment on above: Performed By: #### U RMACRERAT, CBC, A1C WTH eA, LIPID, CMP #### [facility] [address] Anion gap [Moles/Vol] 14.2 mmol/L Normal 6.0-15.0 [facility] Comment on above: Performed By: #### U RMACRERAT, CBC, A1C WTH eA, LIPID, CMP #### [facility] [address] [place] [address] AST [Catalytic activity/Vol] 53 U/L High 10-42 [facility] Comment on above: Performed By: #### U RMACRERAT, CBC, A1C WTH eA, LIPID, CMP #### [facility] [address] [place] [address] Bilirubin [Mass/Vol] 0.6 mg/dL Normal 0.3-1.2 [facility] Comment on above: Performed By: #### U RMACRERAT, CBC, A1C WTH eA, LIPID, CMP #### [facility] [address] [place] [address] [place] Calcium [Mass/Vol] 9.2 mg/dL Normal 8.2-10.2 [facility] Comment on above: Performed By: #### U RMACRERAT, CBC, A1C WTH eA, LIPID, CMP #### [facility] [address] [place] [address] [place] Chloride [Moles/Vol] 99 mmol/L Normal 95-114 [facility] Comment on above: Performed By: #### U RMACRERAT, CBC, A1C WTH eA, LIPID, CMP #### [facility] [address] [place] [address] [place] CO2 [Moles/Vol] 27.4 mmol/L Normal 22.0-30.0 [facility] Comment on above: Performed By: #### U RMACRERAT, CBC, A1C WTH eA, LIPID, CMP #### [facility] [address] Creatinine [Mass/Vol] 1.00 mg/dL Normal 0.64-1.27 [facility] Comment on above: Performed By: #### U RMACRERAT, CBC, A1C WTH eA, LIPID, CMP #### [facility] [address] Estimated GFR ( Felipa > 60 [facility] Comment on above: Result Comment: GFR estimated reference range: According to KDOQI guidelines, <60 ml/min/1.73m2 is sufficient to diagnose a patient with chronic kidney disease. Performed By: #### U RMACRERAT, CBC, A1C WTH eA, LIPID, CMP #### [facility] [address] Estimated GFR (Non- Am > 60 [facility] Comment on above: Performed By: #### U RMACRERAT, CBC, A1C WTH eA, LIPID, CMP #### [facility] [address] Globulin (S) [Mass/Vol] 2.9 g/dL Normal [facility] Comment on above: Performed By: #### U RMACRERAT, CBC, A1C WTH eA, LIPID, CMP #### [facility] [address] Glucose [Mass/Vol] 145 mg/dL High 70-100 [facility] Comment on above: Result Comment: [place] Glucose Reference Range is dependent on time and content of last meal. Glucose of more than 200 mg/dL in a nonstressed, ambulatory subject supports the diagnosis of Diabetes Mellitus. ADA recommended reference range Performed By: #### U RMACRERAT, CBC, A1C WTH eA, LIPID, CMP #### [facility] [address] Potassium [Moles/Vol] 4.6 mmol/L Normal 3.5-5.1 [facility] Comment on above: Performed By: #### U RMACRERAT, CBC, A1C WTH eA, LIPID, CMP #### [facility] [address] [place] [address] [place] Protein [Mass/Vol] 6.7 g/dL Normal 6.1-7.9 [facility] Comment on above: Performed By: #### U RMACRERAT, CBC, A1C WTH eA, LIPID, CMP #### [facility] [address] [place] [address] [place] Sodium [Moles/Vol] 136 mmol/L Normal 136-146 [facility] Comment on above: Performed By: #### U RMACRERAT, CBC, A1C WTH eA, LIPID, CMP #### [facility] [address] [place] [address] [place] Urea nitrogen [Mass/Vol] 15 mg/dL Normal 9-23 [facility] Comment on above: Performed By: #### U RMACRERAT, CBC, A1C WTH eA, LIPID, CMP #### [facility] [address] [place] [address] [place] Creatinine [Mass/volume] in UrineOrdered By: Shaikh Dali on 10-29-2022 Creatinine (U) [Mass/Vol] 166.9 mg/dL [facility] Comment on above: No reference range e stablished Creatinine and Glomerular fi ltration rate.predicted panel (S/P/Bld)Ordered By: Shaikh Dali on 10-29-2022 Creatinine [Mass/Vol] 1.00 mg/dL 0.64-1.27 [facility] Eosinophils Auto (Bld) [#/Vo l]Ordered By: Shaikh Dali on 10-29-2022 Eosinophils (Bld) [#/Vol] 0.5 10*3/uL 0.0-0.45 [facility] Eosinophils/100 WBC Auto (Bl d)Ordered By: Shaikh Dali on 10-29-2022 Eosinophils/100 WBC (Bld) 5.3 % . [facility] Erythrocyte distribution wid th Auto (RBC) [Ratio]Ordered By: Shaikh Dali on 10-29-2022 Erythrocyte distribution width (RBC) [Ratio] 13.7 % 12.0-14.8 [facility] Estimated glomerular filtrat ion rate (GFR) non- AmericanOrdered By: Shaikh Dali on 10-29-2022 GFR/1.73 sq M.predicted among non-blacks MDRD (S/P/Bld) [Vol rate/Area] > 60 mL/Min [facility] Globulin Calc (S) [Mass/Vol] Ordered By: Shaikh Dali on 10-29-2022 Globulin (S) [Mass/Vol] 2.9 g/dL [facility] Glucose mean value [Mass/vol ume] in Blood Estimated from glycated hemoglobinOrdered By: Shaikh Dali on 10-29-2022 Average glucose Estimated from glycated hemoglobin (Bld) [Mass/Vol] 169 mg/dL [facility] Hematocrit Auto (Bld) [Volum e fraction]Ordered By: Shaikh Dali on 10-29-2022 Hematocrit (Bld) [Volume fraction] 44.8 % 38.8-50.0 [facility] Hemoglobin A1c percentageOrd ered By: Shaikh Dali on 10-29-2022 HbA1c (Bld) [Mass fraction] 7.5 % 4.3-5.6 [facility] Comment on above: Increased risk for d iabetes: 5.7 - 6.4diabetes: >6.4glycemic control for adults with diabetes: <7.0 Hemoglobin [Mass/volume] in BloodOrdered By: Shaikh Dali on 10-29-2022 Hemoglobin (Bld) [Mass/Vol] 14.5 g/dL 13.0-17.0 [facility] Leukocytes [#/volume] correc wiley for nucleated erythrocytes in Blood by Automated counOrdered By: Shaikh Dali on 10-29-2022 WBC corrected for nucl RBC Auto (Bld) [#/Vol] 9.8 10*3/uL 4.1-10.5 [facility] Lipid Panelon 10-29-2022 Cholesterol [Mass/Vol] 147 mg/dL Normal 140-200 [facility] Comment on above: Result Comment: Chol less than 200 mg/dl low risk Chol 201-239 mg/dl borderline risk Chol 240 mg/dl and greater high risk Performed By: #### U RMACRERAT, CBC, A1C WTH eA, LIPID, CMP #### [facility] [address] Cholesterol in HDL [Mass/Vol] 28 mg/dL Low 29-71 [facility] Comment on above: Result Comment: HDL CHOL ATP-III CLASSIFICATION Cardiovascular Risk HDL > or equal to 60 mg/dL LOW HDL < 40 mg/dL HIGH Performed By: #### U RMACRERAT, CBC, A1C WTH eA, LIPID, CMP #### [facility] [address] Cholesterol.total/Apple sterol in HDL [Mass ratio] 5.3 {ratio} Normal <5.0 [facility] Comment on above: Result Comment: PERF ORMED BY: [place] [address] PATHOLOGIST BOX PULLER IWNTER RODRIGUEZ M.D. Performed By: #### U RMACRERAT, CBC, A1C WTH eA, LIPID, CMP #### [facility] [address] LDL Cholesterol,Calculated 62 mg/dL Normal 0-100 [facility] Comment on above: Result Comment: LDL ATP III CLASSIFICATION LDL less than 100 mg/dL Optimal LDL 100-129 mg/dL Near or above optimal LDL 130-159 mg/dL Borderline high LDL 160-189 mg/dL High LDL greater than 189 mg/dL Very high Performed By: #### U RMACRERAT, CBC, A1C WTH eA, LIPID, CMP #### [facility] [address] [place] [address] [place] Triglyceride w/Reflex 285 mg/dL High 35-149 [facility] Comment on above: Result Comment: TRIG ATP III CLASSIFICATION TRIG less than 150 mg/dL Normal TRIG 150-199 mg/dL Borderline high TRIG 200-500 mg/dL High TRIG greater than 500 mg/dL Very high Standard traceable to the Center for Disease Conrtrol and Prevention (CDC) test method. Performed By: #### U RMACRERAT, CBC, A1C WTH eA, LIPID, CMP #### [facility] [address] VLDL CHOLESTEROL 57 mg/dL Normal [facility] Comment on above: Performed By: #### U RMACRERAT, CBC, A1C WTH eA, LIPID, CMP #### [facility] [address] Lymphocytes Auto (Bld) [#/Vo l]Ordered By: Shaikh Dali on 10-29-2022 Lymphocytes (Bld) [#/Vol] 2.1 10*3/uL 1.00-4.8 [facility] Lymphocytes/100 WBC Auto (Bl d)Ordered By: Shaikh Dali on 10-29-2022 Lymphocytes/100 WBC (Bld) 21.4 % . [facility] MCH Auto (RBC) [Entitic mass ]Ordered By: Shaikh Dali on 10-29-2022 MCH (RBC) [Entitic mass] 27.5 pg 27.5-35.2 [facility] MCHC Auto (RBC) [Mass/Vol]Or dered By: Shaikh Dali on 10-29-2022 MCHC (RBC) [Mass/Vol] 32.5 g/dL 32.5-35.6 [facility] MCV Auto (RBC) [Entitic vol] Ordered By: Shaikh Dali on 10-29-2022 MCV (RBC) [Entitic vol] 84.7 fL 83.5-101 [facility] MicroAlb Creat Ratio,Uon Albumin DL <= 20 mg/L (U) [Mass/Vol] 18.7 mg/dL High 0.0-1.8 [facility] Comment on above: Performed By: #### U RMACRERAT, CBC, A1C WTH eA, LIPID, CMP #### [facility] [address] Creatinine, Urine (Random) 166.9 mg/dL Normal [facility] Comment on above: Result Comment: No r eference range established Performed By: #### U RMACRERAT, CBC, A1C WTH eA, LIPID, CMP #### [facility] [address] Microalbumin/Creatinine Ratio 112.0 mg/g High 0.0-30.0 [facility] Comment on above: Result Comment: 30-3 00 mg/g indicates an increased risk for diabetic nephropathy. Greater than 300 mg/g is consistent with clinical nephropathy. (Am. J. Kidney Disease 1995, 25:107) PERFORMED BY: [facility] [address] [facility] [place] [address] PATHOLOGIST BOX PULLER WINTER RODRIGUEZ M.D. Performed By: #### U RMACRERAT, CBC, A1C WTH eA, LIPID, CMP #### [facility] [address] [place] [id number] [facility] Monocytes Auto (Bld) [#/Vol] Ordered By: Shaikh Dali on 10-29-2022 Monocytes (Bld) [#/Vol] 0.7 10*3/uL 0.0-0.8 [facility] Monocytes/100 WBC Auto (Bld) Ordered By: Shaikh Dali on 10-29-2022 Monocytes/100 WBC (Bld) 7.2 % . [facility] Neutrophils Auto (Bld) [#/Vo l]Ordered By: Shaikh Dali on 10-29-2022 Neutrophils (Bld) [#/Vol] 6.4 10*3/uL 1.8-7.7 [facility] Neutrophils/100 WBC Auto (Bl d)Ordered By: Shaikh Dali on 10-29-2022 Neutrophils/100 WBC (Bld) 65.4 % . [facility] No Panel InformationOrdered By: Shaikh Dali on 10-29-2022 Estimated GFR () > 60 mL/Min [facility] Comment on above: GFR estimated refere nce range: According to KDOQI guidelines, <60 ml/min/1.73m2 is sufficient to diagnose a patient with chronic kidney disease. Pharmacy Creatinine Clearance (Chem N/A [facility] Nucleated erythrocytes [Pres ence] in Blood by Automated countOrdered By: Shaikh Dali on 10-29-2022 Nucleated RBC Auto Ql (Bld) 0.2 /100{WBC} 0-0.5 [facility] Platelet mean volume Auto (B ld) [Entitic vol]Ordered By: Shaikh Dali on 10-29-2022 Platelet mean volume (Bld) [Entitic vol] 10.2 fL 6.6-10.1 [facility] Platelets Auto (Bld) [#/Vol] Ordered By: Shaikh Dali on 10-29-2022 Platelets (Bld) [#/Vol] 235 10*3/uL 150-450 [facility] Protein [Mass/volume] in Ser um or PlasmaOrdered By: Shaikh Dali on 10-29-2022 Protein [Mass/Vol] 6.7 g/dL 6.1-7.9 [facility] RBC Auto (Bld) [#/Vol]Ordere d By: Shaikh Dali on 10-29-2022 RBC (Bld) [#/Vol] 5.28 10*6/uL 3.90-5.60 [facility] Serum or plasma alanine azevedo otransferase measurement without P-5'-P (enzymatic activiOrdered By: Shaikh Dali on 10-29-2022 ALT No additional P-5'-P [Catalytic activity/Vol] 42 U/L 10-60 [facility] Serum or plasma albumin/glob ulin mass ratioOrdered By: Shaikh Dali on 10-29-2022 Albumin/Globulin [Mass ratio] 1.3 {ratio} [facility] Serum or plasma alkaline julia sphatase measurement (enzymatic activity/volume)Ordered By: Shaikh Dali on 10-29-2022 ALP [Catalytic activity/Vol] 73 U/L 32-92 [facility] Serum or plasma anion gap de terminationOrdered By: Shaikh Dali on 10-29-2022 Anion gap [Moles/Vol] 14.2 mmol/L 6.0-15.0 [facility] Serum or plasma aspartate am inotransferase measurement (enzymatic activity/volume)Ordered By: Shaikh Dali on 10-29-2022 AST [Catalytic activity/Vol] 53 U/L 10-42 [facility] Serum or plasma calcium david urement (mass/volume)Ordered By: Shaikh Dali on 10-29-2022 Calcium [Mass/Vol] 9.2 mg/dL 8.2-10.2 [facility] Serum or plasma chloride traci surement (moles/volume)Ordered By: Shaikh Dali on 10-29-2022 Chloride [Moles/Vol] 99 mmol/L 95-114 [facility] Serum or plasma glucose david urement (mass/volume)Ordered By: Shaikh Dali on 10-29-2022 Glucose [Mass/Vol] 145 mg/dL 70-100 [facility] Comment on above: ADA recommended refe rence rangeRandom Glucose Reference Range is dependent on time and content of last meal. Glucose of more than 200 mg/dL in a nonstressed, ambulatory subject supports the diagnosis of Diabetes Mellitus. Serum or plasma high density lipoprotein (HDL) cholesterol measurementOrdered By: Shaikh Dali on 10-29-2022 Cholesterol in HDL [Mass/Vol] 28 mg/dL 29-71 [facility] Comment on above: HDL CHOL ATP-III CLA SSIFICATION Cardiovascular RiskHDL > or equal to 60 mg/dL LOWHDL < 40 mg/dL HIGH Serum or plasma potassium me asurement (moles/volume)Ordered By: Shaikh Dali on 10-29-2022 Potassium [Moles/Vol] 4.6 mmol/L 3.5-5.1 [facility] Serum or plasma sodium measu rement (moles/volume)Ordered By: Shaikh Dali on 10-29-2022 Sodium [Moles/Vol] 136 mmol/L 136-146 [facility] Serum or plasma total biliru bin measurement (mass/volume)Ordered By: Shaikh Dali on 10-29-2022 Bilirubin [Mass/Vol] 0.6 mg/dL 0.3-1.2 [facility] Serum or plasma total carbon dioxide measurement (moles/volume)Ordered By: Shaikh Dali on 10-29-2022 CO2 [Moles/Vol] 27.4 mmol/L 22.0-30.0 [facility] Serum or plasma total choles terol/high density lipoprotein (HDL) cholesterol mass ratOrdered By: Shaikh Dali on 10-29-2022 Cholesterol.total/Apple sterol in HDL [Mass ratio] 5.3 {ratio} <5.0 [facility] Serum or plasma urea nitroge n measurement (mass/volume)Ordered By: Shaikh Dali on 10-29-2022 Urea nitrogen [Mass/Vol] 15 mg/dL 9- [facility] Triglyceride [Mass/volume] i n Serum or PlasmaOrdered By: Shaikh Dali on 10-29-2022 Triglyceride [Mass/Vol] 285 mg/dL 35-149 [facility] Comment on above: TRIG ATP III [...] 20 mg/L (U) [Mass/Vol] 18.7 mg/dL 0.0-1.8 [facility] Urine microalbumin/creatinin e mass ratioOrdered By: Shaikh Dali on 10-29-2022 Albumin/Creatinine DL <= 20 mg/L (U) [Mass ratio] 112.0 mg/g 0.0-30.0 [facility] Comment on above: 30-300 mg/g indicate s an increased risk for diabetic nephropathy. Greater than 300 mg/g is consistent with clinical nephropathy. (Am. J. Kidney Disease 1995, 25:107) WBC Auto (Bld) [#/Vol]Ordere d By: Shaikh Dali on 10-29-2022 WBC (Bld) [#/Vol] 9.8 10*3/uL 4.1-10.5 [facility] CARDIAC SARAH ADMITon 022 CK [Catalytic activity/Vol] 100 U/L Normal 39-308 [facility] Comment on above: Performed By: #### C MADM, CMP #### [facility] [address] [address] [address] Tracy Gutierrez CK.MB [Mass/Vol] 1.18 ng/mL Normal <=3.60 [facility] Comment on above: Performed By: #### C MADM, CMP #### [facility] [address] [address] [address] Tracy Gutierrez HSTROP 11.3 pg/mL Normal 4.0-76.1 [facility] Comment on above: Result Comment: CUT- OFF POINTS HAVE BEEN ESTABLISHED BASED ON THE FOURTH UNIVERSAL DEFINITIONS OF MYOCARDIAL INFARCTION. THE UPPER REFERENCE LIMIT (URL) OF TROPONIN, DEFINED THE 99TH PERCENTILE OF cTnI DISTRIBUTION IN A REFERENCE POPULATION, HAS BEEN CONFIRMED THE DECISION THRESHOLD FOR [place] DIAGNOSIS. Performed By: #### C MADM, CMP #### [facility] [address] [address] [address] Tracy Gutierrez ERIN 60 ng/mL Normal 16-96 [facility] Comment on above: Performed By: #### C MADM, CMP #### [facility] [address] [address] [address] Tracy Gutierrez CBC AUTO DIFFon 05-02-2022 BASO # 0.1 103/ul Normal 0.0-0.1 [facility] Comment on above: Performed By: #### C BC #### [facility] [address] [address] [address] Tracy Gutierrez Basophils/100 WBC (Bld) 0.6 % Normal 0.2-2.0 [facility] Comment on above: Performed By: #### C BC #### [facility] [address] [place] [address] [address] Tracy Gutierrez EO # 0.4 103/ul Normal 0.0-0.7 [facility] Comment on above: Performed By: #### C BC #### [facility] [address] [place] [address] Dr. Tracy Gutierrez Eosinophils/100 WBC (Bld) 4.1 % Normal 0.9-7.0 [facility] Comment on above: Performed By: #### C BC #### [facility] [address] [place] [address] Dr. Tracy Gutierrez Erythrocyte distribution width (RBC) [Ratio] 12.7 % Normal 11.0-15.0 [facility] Comment on above: Performed By: #### C BC #### [facility] [address] [place] [address] Dr. Tracy Gutierrez Hematocrit (Bld) [Volume fraction] 44.9 % Normal 42.0-54.0 [facility] Comment on above: Performed By: #### C BC #### [facility] [address] [place] [address] Dr. Tracy Gutierrez Hemoglobin (Bld) [Mass/Vol] 14.5 g/dL Normal 14.0-18.0 [facility] Comment on above: Performed By: #### C BC #### [facility] [address] [place] [address] Dr. Tracy Gutierrez IG # 0.04 10e3/ul Critically high 0.00-0.03 [facility] Comment on above: Performed By: #### C BC #### [facility] [address] [place] [address] Dr. Tracy Gutierrez IG % 0.4 % Normal 0.0-0.5 [facility] Comment on above: Performed By: #### C BC #### [facility] [address] [place] [address] Dr. Tracy Gutierrez LYMPH # 2.1 103/ul Normal 1.2-3.8 [facility] Comment on above: Performed By: #### C BC #### [facility] [address] [place] [address] Dr. Tracy Gutierrez Lymphocytes/100 WBC (Bld) 20.8 % Normal 20.5-60.0 [facility] Comment on above: Performed By: #### C BC #### [facility] [address] [place] [address] Dr. Tracy Gutierrez MANUAL DIFF REQ NO Normal [facility] Comment on above: Performed By: #### C BC #### [facility] [address] [place] [address] Dr. Tracy Gutierrez MCH (RBC) [Entitic mass] 27.9 pg Normal 25.9-34.0 [facility] Comment on above: Performed By: #### C BC #### [facility] [address] [place] [address] Dr. Tracy Gutierrez MCHC (RBC) [Mass/Vol] 32.3 g/dL Normal 29.9-35.2 [facility] Comment on above: Performed By: #### C BC #### [facility] [address] [place] [address] Dr. Tracy Gutierrez MCV (RBC) [Entitic vol] 86.3 fL Normal 80.0-94.0 [facility] Comment on above: Performed By: #### C BC #### [facility] [address] [place] [address] Dr. Tracy Gutierrez MONO # 0.7 103/ul Normal 0.3-0.8 [facility] Comment on above: Performed By: #### C BC #### [facility] [address] [place] [address] Dr. Tracy Gutierrez Monocytes/100 WBC (Bld) 7.2 % Normal 1.7-12.0 [facility] Comment on above: Performed By: #### C BC #### [facility] [address] [place] [address] Dr. Tracy Gutierrez NEUT # 6.9 103/ul Critically high 1.4-6.5 [facility] Comment on above: Performed By: #### C BC #### [facility] [address] [place] [address] Dr. Tracy Gutierrez Neutrophils/100 WBC (Bld) 66.9 % Normal 43.0-75.0 [facility] Comment on above: Performed By: #### C BC #### [facility] [address] [place] [address] Dr. Tracy Gutierrez Platelet mean volume (Bld) [Entitic vol] 11.1 fL Normal 9.5-13.5 [facility] Comment on above: Performed By: #### C BC #### [facility] [address] [place] [address] Dr. Tracy Gutierrez PLT 237 103/ul Normal 150-450 [facility] Comment on above: Performed By: #### C BC #### [facility] [address] [place] [address] Dr. Tracy Gutierrez RBC 5.20 106/ul Normal 4.70-6.10 [facility] Comment on above: Performed By: #### C BC #### [facility] [address] [place] [address] Dr. Tracy Gutierrez WBC 10.3 103/ul Normal 4.0-11.0 [facility] Comment on above: Performed By: #### C BC #### [facility] [address] [place] [address] Dr. Tracy Gutierrez PROF 14(COMP METB)on 022 Albumin [Mass/Vol] 3.7 g/dL Normal 3.4-5.0 [facility] Comment on above: Performed By: #### C PENNY, CMP #### [facility] [address] [place] [address] Dr. Tracy Gutierrez Albumin/Globulin [Mass ratio] 0.9 {ratio} Normal [facility] Comment on above: Performed By: #### C MADM, CMP #### [facility] [address] [place] [address] Dr. Tracy Gutierrez ALP [Catalytic activity/Vol] 77 U/L Normal 46-116 [facility] Comment on above: Performed By: #### C RICKIEM, CMP #### [facility] [address] [place] [address] Dr. Tracy Gutierrez ALT [Catalytic activity/Vol] 46 U/L Normal 16-63 [facility] Comment on above: Performed By: #### C RICKIEM, CMP #### [facility] [address] [address] [address] Tracy Gutierrez Anion gap [Moles/Vol] 10.7 mmol/L Normal [facility] Comment on above: Performed By: #### C RICKIEM, CMP #### [facility] [address] [address] [address] Tracy Gutierrez AST [Catalytic activity/Vol] 40 U/L Critically high 15-37 [facility] Comment on above: Performed By: #### C RICKIEM, CMP #### [facility] [address] [address] [address] Tracy Gutierrez Bilirubin [Mass/Vol] 0.5 mg/dL Normal 0.2-1.0 [facility] Comment on above: Performed By: #### C RICKIEM, CMP #### [facility] [address] [place] [address] Dr. Tracy Gutierrez Calcium [Mass/Vol] 9.4 mg/dL Normal 8.5-10.1 [facility] Comment on above: Performed By: #### C PENNY, CMP #### [facility] [address] [address] [address] Tracy Gutierrez Chloride [Moles/Vol] 102 mmol/L Normal 98-107 [facility] Comment on above: Performed By: #### C PENNY, CMP #### [facility] [address] [place] [address] Dr. Tracy Gutierrez CO2 [Moles/Vol] 29.6 mmol/L Normal 21.0-32.0 [facility] Comment on above: Performed By: #### C RICKIEM, CMP #### [facility] [address] [address] [address] Tracy Gutierrez Creatinine [Mass/Vol] 1.14 mg/dL Normal 0.70-1.30 [facility] Comment on above: Performed By: #### C RICKIEM, CMP #### [facility] [address] [address] [address] Tracy Gutierrez EGFR-AF CUBAN >60 Normal >=60 [facility] Comment on above: Performed By: #### C RICKIEM, CMP #### [facility] [address] [address] [address] Tracy Gutierrez EGFR-NON AF CUBAN >60 Normal >=60 [facility] Comment on above: Performed By: #### C MADM, CMP #### [facility] [address] [address] [address] Tracy Gutierrez Globulin (S) [Mass/Vol] 4.1 g/dL Normal [facility] Comment on above: Performed By: #### C MADM, CMP #### [facility] [address] [address] [address] Tracy Gutierrez Glucose [Mass/Vol] 203 mg/dL Critically high 74-106 [facility] Comment on above: Performed By: #### C RICKIEM, CMP #### [facility] [address] [place] [address] Dr. Tracy Gutierrez Potassium [Moles/Vol] 4.3 mmol/L Normal 3.5-5.1 [facility] Comment on above: Performed By: #### C RICKIEM, CMP #### [facility] [address] [place] [address] Dr. Tracy Gutierrez Protein [Mass/Vol] 7.8 g/dL Normal 6.4-8.2 [facility] Comment on above: Performed By: #### C RICKIEM, CMP #### [facility] [address] [place] [address] Dr. Tracy Gutierrez Sodium [Moles/Vol] 138 mmol/L Normal 136-145 [facility] Comment on above: Performed By: #### C RICKIEM, CMP #### [facility] [address] [place] [address] Dr. Tracy Gutierrez Urea nitrogen [Mass/Vol] 16.0 mg/dL Normal 7.0-18.0 [facility] Comment on above: Performed By: #### C MADM, CMP #### [facility] [address] [place] [address] Dr. Tracy Gutierrez Urea nitrogen/Creatinine [Mass ratio] 14.0 mg/mg Normal [facility] Comment on above: Performed By: #### Ricardo FRANCIS CMP #### [facility] [address] [place], [place] [address] Dr. Tracy Gutierrez XR CHEST 1 Von [...] by: NIKUNJ PINO Date: 2022-05-02 16:53 Normal [facility] Comp Metabolic Profon 2020 (cont.) Normal [facility] Comment on above: Result Comment: Aver age GFR for 70 or more years old: 75 mL/min/1.73sq m Chronic Kidney Disease: <60 mL/min/1.73sq m Kidney failure: <15 mL/min/1.73sq m eGFR calculated using average adult body mass. Additional eGFR calculator available at: http://www.Koudai/multiple_crcl_2012.htm Performed By: #### Randall FAST, CP #### [facility] [address] [place] [address] Utilization Supervisor: Abisai Tellez MD #### LIPR #### [address] [place], [place] [id number] Utilization Supervisor: Shaheed Alcocer MD Albumin [Mass/Vol] 4.1 g/dL Normal 3.5-5.2 [facility] Comment on above: Performed By: #### Randall FAST, CP #### [facility] [address] [place], [place] [id number] Utilization Supervisor: Abisai Tellez MD #### LIPR #### [facility] [employer] [address] [place] [address] Utilization Supervisor: Shaheed Alcocer MD Alkaline Phos 78 U/L Normal 40-129 [facility] Comment on above: Performed By: #### Randall FAST, CP #### [facility] [address] [place] [address] Utilization Supervisor: Abisai Tellez MD #### LIPR #### [facility] [address] [place] [address] Utilization Supervisor: Shaheed Alcocer MD ALT [Catalytic activity/Vol] 34 U/L Normal 5-41 [facility] Comment on above: Performed By: #### Randall HERRERA, CP #### [facility] [address] [place] [address] Utilization Supervisor: Abisai Tellez MD #### LIPR #### [address] [address] Utilization Supervisor: Shaheed Alcocer MD Anion gap [Moles/Vol] 12 mmol/L Normal 9-17 [facility] Comment on above: Performed By: #### Randall HERRERA, CP #### [facility] [address] [place] [address] Utilization Supervisor: Abisai Tellez MD #### LIPR #### [address] [address] Utilization Supervisor: Shaheed Alcocer MD AST [Catalytic activity/Vol] 28 U/L Normal <40 [facility] Comment on above: Performed By: #### Randall FAST, CP #### [facility] [address] [place] [address] Utilization Supervisor: Abisai Tellez MD #### LIPR #### [facility] [address] [place] [address] Utilization Supervisor: Shaheed Alcocer MD Bilirubin [Mass/Vol] 0.31 mg/dL Normal 0.30-1.20 [facility] Comment on above: Performed By: #### Randall FAST, CP #### [facility] [address] [place] [address] Utilization Supervisor: Abisai Tellez MD #### LIPR #### [facility] [address] [place] [address] Utilization Supervisor: Shaheed Alcocer MD BUN/CRE Ratio 23 High 9-20 [facility] Comment on above: Performed By: #### Randall FAST, CP #### [facility] [address] [place] [address] Utilization Supervisor: Abisai Tellez MD #### LIPR #### [address] [address] Utilization Supervisor: Shaheed Alcocer MD Calcium [Mass/Vol] 8.9 mg/dL Normal 8.6-10.4 [facility] Comment on above: Performed By: #### Randall FAST, CP #### [facility] [address] [place] [address] Utilization Supervisor: Abisai Tellez MD #### LIPR #### [facility] [address] [place] [address] Utilization Supervisor: Shaheed Alcocer MD Chloride [Moles/Vol] 96 mmol/L Low 98-107 [facility] Comment on above: Performed By: #### Randall FAST, CP #### [facility] [address] [place] [address] Utilization Supervisor: Abisai Tellez MD #### LIPR #### [facility] [address] [place] [address] Utilization Supervisor: Shaheed Alcocer MD CO2 [Moles/Vol] 25 mmol/L Normal 20-31 [facility] Comment on above: Performed By: #### Randall FAST, CP #### [facility] [address] [place], [place] [id number] Utilization Supervisor: Abisai Tellez MD #### LIPR #### [address] [phone] Utilization Supervisor: Shaheed Alcocer MD Creatinine [Mass/Vol] 0.96 mg/dL Normal 0.70-1.20 [facility] Comment on above: Performed By: #### Z FAST, CP #### [facility] [address] [place], [place] [address] Utilization Supervisor: Abisai Tellez MD #### LIPR #### [address] [phone] Utilization Supervisor: Shaheed Alcocer MD GFR, Amer >60 Normal >60 [facility] Comment on above: Performed By: #### Randall FAST, CP #### [facility] [address] [place], [place] [phone] Utilization Supervisor: Abisai Tellez MD #### LIPR #### [address] [phone] Utilization Supervisor: Shaheed Alcocer MD GFR,non Amer >60 Normal >60 [facility] Comment on above: Performed By: #### Z FAST, CP #### [facility] [address] [place], [place] [id number] Utilization Supervisor: Abisai Tellez MD #### LIPR #### [address] [address] Utilization Supervisor: Shaheed Alcocer MD Glucose [Mass/Vol] 157 mg/dL High 70-99 [facility] Comment on above: Performed By: #### Z FAST, CP #### [facility] [address] [place], [place] 0690690 Utilization Supervisor: Abisai Tellez MD #### LIPR #### [address] [place] [address] Utilization Supervisor: Shaheed Alcocer MD Potassium [Moles/Vol] 4.7 mmol/L Normal 3.7-5.3 [facility] Comment on above: Performed By: #### Z FAST, CP #### [facility] [address] [place] [address] Utilization Supervisor: Abisai Tellez MD #### LIPR #### [facility] [address] [place] [address] Utilization Supervisor: Shaheed Alcocer MD Protein [Mass/Vol] 7.4 g/dL Normal 6.4-8.3 [facility] Comment on above: Performed By: #### Randall FAST, CP #### [facility] [address] [place], [place] [phone] Utilization Supervisor: Abisai Tellez MD #### LIPR #### [address] [address] Utilization Supervisor: Shaheed Alcocer MD Sodium [Moles/Vol] 133 mmol/L Low 135-144 [facility] Comment on above: Performed By: #### Randall FAST, CP #### [facility] [address] [place] [address] Utilization Supervisor: Abisai Tellez MD #### LIPR #### [address] [address] Utilization Supervisor: Shaheed Alcocer MD Urea nitrogen [Mass/Vol] 22 mg/dL Normal 8-23 [facility] Comment on above: Performed By: #### Randall FAST, CP #### [facility] [address] [place] [address] Utilization Supervisor: Abisai Tellez MD #### LIPR #### [facility] [address] [place] [address] Utilization Supervisor: Shaheed Alcocer MD Albumin/Glob Ratio NOT REPORTED Normal 1.0-2.5 [facility] Comment on above: Performed By: #### Randall FAST, CP #### [facility] [address] [place], [place] [phone] Utilization Supervisor: Abisai Tellez MD #### LIPR #### [address] [phone] Utilization Supervisor: Shaheed Alcocer MD Staging: NOT REPORTED Normal [facility] Comment on above: Performed By: #### Randall FAST, CP #### [facility] [address] [place], [place] [phone] Utilization Supervisor: Abisai Tellez MD #### LIPR #### [address] [phone] Utilization Supervisor: Shaheed Alcocer MD Lipid Profileon 09-19-2021 Cholesterol [Mass/Vol] 135 mg/dL Normal <200 [facility] Comment on above: Result Comment: Cholesterol Guidelines: <200 Desirable 200-240 Borderline >240 Undesirable Performed By: #### Randall FAST, CP #### [facility] [address] [place], [place] [phone] Utilization Supervisor: Abisai Tellez MD #### LIPR #### [address] [phone] Utilization Supervisor: Shaheed Alcocer MD Cholesterol in HDL [Mass/Vol] 30 mg/dL Low >40 [facility] Comment on above: Result Comment: HDL Guidelines: <40 Undesirable 40-59 Borderline >59 Desirable Performed By: #### Randall FAST, CP #### [facility] [address] [place], [place] [id number] Utilization Supervisor: Abisai Tellez MD #### LIPR #### [address] [phone] Utilization Supervisor: Shaheed Alcocer MD Cholesterol in LDL [Mass/Vol] 80 mg/dL Normal 0-130 [facility] Comment on above: Result Comment: LDL Guidelines: <100 Desirable 100-129 Near to/above Desirable 130-159 Borderline >159 Undesirable Direct (measured) LDL and calculated LDL are not interchangeable tests. Performed By: #### Z FAST, CP #### [facility] [address] [place], [place] [phone] Utilization Supervisor: Abisai Tellez MD #### LIPR #### [facility] [address] [place], [place] [phone] Utilization Supervisor: Shaheed Alcocer MD Cholesterol.total/Apple sterol in HDL [Mass ratio] 4.5 {ratio} Normal <5 [facility] Comment on above: Performed By: #### Randall FAST, CP #### [facility] [address] [place], [place] [phone] Utilization Supervisor: Abisai Tellez MD #### LIPR #### [facility] [address] [place], [place] 2265908 Utilization Supervisor: Shaheed Alcocer MD Triglyceride [Mass/Vol] 126 mg/dL Normal <[address] [facility] Comment on above: Result Comment: Triglyceride Guidelines: <150 Desirable 150-199 Borderline 200-499 High >499 Very high Based on AHA Guidelines for fasting triglyceride, July 2012. Performed By: #### Randall FAST, CP #### [facility] [address] [place], [place] [phone] Utilization Supervisor: Abisai Tellez MD #### LIPR #### [facility] [employer] [address] [place] [address] Utilization Supervisor: Shaheed Alcocer MD Cholesterol,VLDL NOT REPORTED Normal 11-04 [facility] Comment on above: Performed By: #### Z FAST, CP #### [facility] [address] [place], [place] [address] Utilization Supervisor: Abisai Tellez MD #### LIPR #### [facility] [address] [place], [place] [address] Utilization Supervisor: Shaheed Alcocer MD Patient fasting?on 1 Patient fasting? YES Normal [facility] Comment on above: Performed By: #### Z FAST, CP #### [facility] [address] [place], [place] [phone] Utilization Supervisor: Abisai Tellez MD #### LIPR #### [facility] [address] [place], [place] [phone] Utilization Supervisor: Shaheed Alcocer MD COVID Quick Testingon 2020 Result Negative [employer] Other Quick Fluon 09-16-2021 FLUAV Ab CF (S) [Titer] Negative N [employer] Other FLUBV Ab CF (S) [Titer] Negative [employer] [facility] [employer] Other [id number] 07-20-2021 SARS-CoV-2 (COVID-19) RNA GARRY+probe Ql (Unsp spec) Normal [facility] Comment on above: Performed By: #### C OVID #### [address] [address] Utilization Supervisor: Shaheed Alcocer MD [facility] [address] [place] [address] Utilization Supervisor: Abisai Tellez MD SARS-CoV-2 (COVID-19) RNA GARRY+probe Ql (Unsp spec) Not detected Normal [facility] Comment on above: Result Comment: The specimen is NEGATIVE for SARS-CoV-2, the novel coronavirus associated with COVID-19. A negative result does not rule out COVID-19. Carole SARS-CoV-2 for use on the Carole [employer]0/8800 [employer] is a real-time RT-PCR test intended [...] this assay. Fact sheet for Healthcare Providers: https://www.fda.gov/media/487897/download Fact sheet for Patients: https://www.fda.gov/media/670715/download METHODOLOGY: RT-PCR Performed By: #### C OVID #### [address] [place], [place] [id number] Utilization Supervisor: Shaheed Alcocer MD [facility] [address] [place] [address] [place] [address] Utilization Supervisor: Abisai Tellez MD [id number] 07-19-2021 SARS-CoV-2 (COVID-19) RNA GARRY+probe Ql (Unsp spec) .NASOPHARYNGEAL SWAB Normal [facility] Comment on above: Performed By: #### C OVID #### [address] [place], [place] [phone] Utilization Supervisor: Shaheed Alcocer MD [address] [place] [address] Utilization Supervisor: Abisai Tellez MD US SCREENING FOR [...] Wesley Aquino MD 08/02/20 Final result Normal [facility] VL DUP CAROTID BILATERALon 0 12-10-2019 [facility] Carotid Procedure Patient Name BRANT Date of Study 12/08/2019 SHARON Rinaldi Date of 1950 Gender Male Age 69 year(s) Race Room Number Corporate ID [id number] # Patient Acct [id number] # MR # [id number] Dispatcher Service Or Work ELENI Fenton Interpreting Physician Diego Luis MD Referring Referring Physician Castillo Clark Nurse Practitioner Procedure Type of Study: Cerebral: Carotid, Carotid Scan Bilateral. Patient Status:Out Patient. Comments:INDICATIONS: 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) ([facility]) I83.9, R.29.810 Basic Classification of [...] side. - Additional Measurements:ICAPSV/C CAPSV 1.47.ICAEDV/CCAEDV 2.54. [facility] [place], [place] Delio, pn Incoming Cardio Results From [employer] - 12/10/2019 1:16 PM EST [facility]ascular Carotid Procedure Patient Name BRANT Date of Study 12/08/2019 SHARON Rinaldi Date of 1950 Gender Male Age 69 year(s) Race Room Number Corporate ID [id number] # Patient Acct [id number] # MR # [id number] Dispatcher Service Or Work ELENI Fenton Interpreting Physician Diego Luis MD Referring Referring Physician Castillo Clark Nurse Practitioner Procedure Type of Study: Cerebral: Carotid, Carotid Scan Bilateral. Patient Status:Out Patient. Comments:INDICATIONS: 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) ([facility]) I83.9, R.29.810 Basic Classification of [...] side. - Additional Measurements:ICAPSV/C CAPSV 1.47.ICAEDV/CCAEDV 2.54. [place], [place] CT HEAD WO CONTRASTon 2019 No acute intracrania l abnormality. [place] EXAMINATION: CT OF THE HEAD WITHOUT [...] droop due to acute cerebrovascular accident (CVA) ([facility]) TECHNOLOGIST PROVIDED HISTORY: Left facial [...] of the visualized skull or soft tissues. [place], [place] Delio, Mhpn Incoming Radiant Results From [employer] - 12/08/2019 4:41 PM EST EXAMINATION: CT [...] droop due to acute cerebrovascular accident (CVA) ([facility]) TECHNOLOGIST PROVIDED HISTORY: Left facial [...] soft tissues. IMPRESSION: No acute intracranial abnormality. [place], [place] Glucose, Whole Bloodon 05-31 Glucose [Mass/Vol] 113 mg/dL High 65 - 99 mg/dL [place] Interpretation and review of laboratory results Abnormal [place], [place] Progress Noteon 04-13-2018 HIM IP Note OR Retail Associate Manager Bilingual Normal [facility] Progress Noteon 01-01-2018 HIM IP Note OR Retail Associate Manager Bilingual Normal [facility] HIM IP Note OR Retail Associate Manager Bilingual Normal [facility] CBCon 08-03-2017 Erythrocyte distribution width Auto Ratio (RBC) 13.9 % Normal 12.5-15.4 [facility] Comment on above: Performed By: #### C BC ####[address] [address] Erythrocytes (RBC) 5.09 10*6/uL Normal 4.5-5.9 [facility] Comment on above: Performed By: #### C BC ####[address] [address] Hematocrit (HCT) 44.0 % Normal 41-53 [facility] Comment on above: Performed By: #### C BC ####[address] [address] Hemoglobin mass conc (Bld) 14.2 g/dL Normal 13.5-17.5 [facility] Comment on above: Performed By: #### C BC ####[address] [place] [address] MCH 27.9 pg Normal 26-34 [facility] Comment on above: Performed By: #### C BC ####[address] [place] [address] MCHC mass conc (RBC) 32.3 g/dL Normal 31-37 [facility] Comment on above: Performed By: #### C BC ####[address] [address] MCV 86.3 fL Normal 80-100 [facility] Comment on above: Performed By: #### C BC ####[address] [address] Platelet mean volume (PMV) 9.2 fL Normal 6.0-12.0 [facility] Comment on above: Result Comment: [address] [address] Performed By: #### C BC ####[address] [address] Platelets 170 10*3/uL Normal 140-450 [facility] Comment on above: Performed By: #### C BC ####[address] [address] WBC (Leukocytes) 9.4 10*3/uL Normal 3.5-11.0 [facility] Comment on above: Performed By: #### C BC ####[address] [address] Comp Metabolic Profon 2016 Aspartate aminotransferase (AST) 31 U/L Normal <40 [facility] Comment on above: Performed By: #### L IPR, CP ####[address] [address] (cont.) Normal [facility] Comment on above: Result Comment: Aver age GFR for 60-69 years old: 85 mL/min/1.73sq mChronic Kidney Disease: <60 mL/min/1.73sq mKidney failure: <15 mL/min/1.73sq meGFR calculated using average adult body mass. Additional eGFR calculator available at:http://www.Meridian.mGaadi/multiple_crcl_2011.htm[address] [place] [address] Performed By: #### L IPR, CP ####[address] [address] Alanine aminotransferase (ALT) 34 U/L Normal 5-41 [facility] Comment on above: Performed By: #### L IPR, CP ####[address] [address] Albumin 3.5 g/dL Normal 3.5-5.2 [facility] Comment on above: Performed By: #### L IPR, CP ####[address] [address] Albumin/Globulin Ratio 1.0 {ratio} Normal 1.0-2.5 [facility] Comment on above: Performed By: #### L IPR, CP ####[address] [address] Alkaline Phos 82 U/L Normal 40-129 [facility] Comment on above: Performed By: #### L IPR, CP ####[address] [address] Anion gap 12 mmol/L Normal 9-17 [facility] Comment on above: Performed By: #### L IPR, CP ####[address] [address] Bilirubin Ql (U) 0.57 mg/dL Normal 0.3-1.2 [facility] Comment on above: Performed By: #### L IPR, CP ####[address] [address] Calcium 9.0 mg/dL Normal 8.6-10.4 [facility] Comment on above: Performed By: #### L IPR, CP ####[address] [address] Chloride 100 mmol/L Normal 98-107 [facility] Comment on above: Performed By: #### L IPR, CP ####[facility] Msrbsiwhdweu37[address] [place] [address] CO2 28 mmol/L Normal 20-31 [facility] Comment on above: Performed By: #### L IPR, CP ####[facility] Igotlordzmvo6673 [place] [address] Creatinine 0.95 mg/dL Normal 0.70-1.20 [facility] Comment on above: Performed By: #### L IPR, CP ####[facility] [address]we[address]ix[address] [place] [address] GFR, Amer >60 Normal >60 [facility] Comment on above: Performed By: #### L IPR, CP ####[facility]i4.msSqakzljbvdoc[address] [place] [address] GFR,non Amer >60 Normal >60 [facility] Comment on above: Performed By: #### L IPR, CP ####[facility] Columbusi4.msQcsxffdjnhuy6866 [place] [address] Glucose mass conc 125 mg/dL High 70-99 [facility] Comment on above: Performed By: #### L IPR, CP ####[facility]i4.msWzeqqghoaack3380 [place] [address] Potassium molar conc 4.7 mmol/L Normal 3.7-5.3 [facility] Comment on above: Performed By: #### L IPR, CP ####[facility] Columbusi4.msLrosxfxfhkyp1954 [place] [address] Protein 6.9 g/dL Normal 6.4-8.3 [facility] Comment on above: Performed By: #### L IPR, CP ####[facility]i4.msXtxjxeawrmbc6546 [place] [address] Sodium 140 mmol/L Normal 135-144 [facility] Comment on above: Performed By: #### L IPR, CP ####[facility] Mx[address]akxv5102 [place] [address] Urea nitrogen 18 mg/dL Normal 8- [facility] Comment on above: Performed By: #### L IPR, CP ####[facility] Dxpk[address]llcthm[address]239 [place] [address] BUN/CRE Ratio NOT REPORTED Normal 06-25 [facility] Comment on above: Performed By: #### L IPR, CP ####[facility] [address] [place] [address] Staging: NOT REPORTED Normal [facility] Comment on above: Performed By: #### L IPR, CP ####[address] [address] Discharge Summaryon 08-03-20 17 HIM IP Note OR Retail Associate Manager Bilingual Normal [facility] Lipid Profileon 08-03-2017 Cholesterol 143 mg/dL Normal <200 [facility] Comment on above: Result Comment: Chol esterol Guidelines: <200 Desirable 200-240 Borderline >240 Undesirable Performed By: #### L IPR, CP ####[facility] [address]zh[address] [place] [address] Cholesterol to HDL Ratio 4.9 {ratio} Normal <5 [facility] Comment on above: Performed By: #### L IPR, CP ####[facility] Zyqjvstlvmpl1550 [place] [address] HDL Cholesterol 29 mg/dL Low >40 [facility] Comment on above: Result Comment: HDL Guidelines: <40 Undesirable 40-59 Borderline >59 Desirable Performed By: #### L IPR, CP ####[facility] Lmug[address]lx[address]z8283 [place] [address] LDL Cholesterol 58 mg/dL Normal 0-130 [facility] Comment on above: Result Comment: LDL Guidelines: <100 Desirable 100-129 Near to/above Desirable 130-159 Borderline >159 UndesirableDirect (measured) LDL and calculated LDL are not interchangeable tests. Performed By: #### L IPR, CP ####[address] [address] Triglyceride 282 mg/dL High <150 [facility] Comment on above: Result Comment: Trig lyceride Guidelines: <150 Desirable 150-199 Borderline 200-499 High >499 Very high Based on AHA Guidelines for fasting triglyceride, July 2012.[address] [address] Performed By: #### L IPR, CP ####[address] [address] Cholesterol in VLDL mass conc NOT REPORTED Normal - [facility] Comment on above: Performed By: #### L IPR, CP ####[address] [address] Brain Natri. Peptideon 08-02 BNP Normal [facility] Comment on above: Result Comment: Pro- BNP Reference Range:Rule Out: <300Grey Zone: Age <50 300-450 Age 50-75 300-900 Age >75 300-1800Usually represents mild to moderate HF but other cardiopulmonary causes cannot be ruled out.Rule In: Age <50 >450 Age 50-75 >900 Age >[address] [address] Performed By: #### B DIRECTOR PRINT, TROPI, TSH, MG, PT ####[address] [address] BNP 347 pg/mL High <300 [facility] Comment on above: Result Comment: Pro- BNP results cannot be compared to BNP results. Performed By: #### B DIRECTOR PRINT, TROPI, TSH, MG, PT ####[address] [address] History and Physicalon 08-02 HIM IP Note OR Retail Associate Manager Bilingual Normal [facility] Magnesiumon 08-02-2017 Magnesium 1.8 mg/dL Normal 1.6-2.6 [facility] Comment on above: Result Comment: [facility] [address] [place] [address] Performed By: #### B DIRECTOR PRINT, TROPI, TSH, MG, PT ####[address] [address] PTon 08-02-2017 INR Coag RelTime (PPP) 0.9 {INR} Normal [facility] Comment on above: Result Comment: Ther apeutic Range: Moderate Anticoagulant Intensity: INR = 2.0-3.0 High Anticoagulant Intensity: INR = 2.5-3.5[facility] [address] [place] [address] Performed By: #### B DIRECTOR PRINT, TROPI, TSH, MG, PT ####[address] [address] Prothrombin time (PT) Coag time (PPP) 9.9 s Normal 9.4-12.6 [facility] Comment on above: Performed By: #### B DIRECTOR PRINT, TROPI, TSH, MG, PT ####[address] [address] Thyroid Stim. Horm.on 2016 Thyroid stimulating hormone (TSH) 1.15 m[IU]/L Normal 0.30-5.00 [facility] Comment on above: Result Comment: [facility] [address] [place] [address] Performed By: #### B DIRECTOR PRINT, TROPI, TSH, MG, PT ####[address] [address] Troponinon 08-02-2017 Troponin I.cardiac mass conc Normal [facility] Comment on above: Result Comment: Refe rence Range: <0.03 Within reference range. 0.03-0.09 Possible myocardial damage.Repeat at appropriate intervals to rule out chronic elevation. >= 0.10 Indicative of myocardial damage.[facility] [address] [place] [address] Performed By: #### T ROPI ####[address] [address] Troponin T.cardiac mass conc ug/L Normal <0.03 [facility] Comment on above: Result Comment: Trop onin T results cannot be compared to Troponin-I results. Performed By: #### T ROPI ####[address] [address] Troponin I.cardiac mass conc Normal [facility] Comment on above: Result Comment: Refe rence Range: <0.03 Within reference range. 0.03-0.09 Possible myocardial damage.Repeat at appropriate intervals to rule out chronic elevation. >= 0.10 Indicative of myocardial damage.[employer] [address] [place] [address] Performed By: #### T ROPI ####[address] [address] Troponin T.cardiac mass conc ug/L Normal <0.03 [facility] Comment on above: Result Comment: Trop onin T results cannot be compared to Troponin-I results. Performed By: #### T ROPI ####[address] [address] Troponin I.cardiac mass conc Normal [facility] Comment on above: Result Comment: Refe rence Range: <0.03 Within reference range. 0.03-0.09 Possible myocardial damage.Repeat at appropriate intervals to rule out chronic elevation. >= 0.10 Indicative of myocardial damage.[facility]ms [address] [place] [address] Performed By: #### T ROPI ####[address] [address] Troponin T.cardiac mass conc ug/L Normal <0.03 [facility] Comment on above: Result Comment: Trop onin T results cannot be compared to Troponin-I results. Performed By: #### T ROPI ####[facility] [place] [address] Troponin I.cardiac mass conc Normal [facility] Comment on above: Result Comment: Refe rence Range: <0.03 Within reference range. 0.03-0.09 Possible myocardial damage.Repeat at appropriate intervals to rule out chronic elevation. >= 0.10 Indicative of myocardial damage.[address] [place] [address] Performed By: #### B DIRECTOR PRINT, TROPI, TSH, MG, PT ####[address] [place] [address] Troponin T.cardiac mass conc ug/L Normal <0.03 [facility] Comment on above: Result Comment: Trop onin T results cannot be compared to Troponin-I results. Performed By: #### B DIRECTOR PRINT, TROPI, TSH, MG, PT ####[facility] [place] [address] Discharge Summaryon 07-11-20 17 HIM IP Note OR Retail Associate Manager Bilingual Normal [facility] History and Physicalon 07-10 HIM IP Note OR Retail Associate Manager Bilingual Normal [facility] Vital Signs Date Time Vital Sign Value Performing Clinician Facility 08-10-2024 13:49-0500 Body height 172.7 cm Renetta Lux MD Work Phone: [facility] 08-10-2024 13:49-0500 Body mass index (BMI) [Ratio] 41.36 kg/m2 Renetta Lux MD Work Phone: [facility] 08-10-2024 13:49-0500 Body weight 123.38 kg Renetta uLx MD Work Phone: [facility] 08-10-2024 13:49-0500 Diastolic blood pressure 62 mm[Hg] Renetta Lux MD Work Phone: [facility] 08-10-2024 13:49-0500 Heart rate 62 /min Renetta Lux MD Work Phone: [facility] 08-10-2024 13:49-0500 Respiratory rate 16 /min Renetta Lux MD Work Phone: [facility] 08-10-2024 13:49-0500 Systolic blood pressure 106 mm[Hg] Renetta Lux MD Work Phone: [facility] 06-17-2024 09:07-0400 Body height 172.7 cm Shima Resendez DIRECTOR PRINT Work Phone: [facility] 06-17-2024 09:07-0400 Body mass index (BMI) [Ratio] 41.05 kg/m2 Shima Resendez DIRECTOR PRINT Work Phone: [facility] 06-17-2024 09:07-0400 Body temperature 97.11 [degF] Shima Resendez DIRECTOR PRINT Work Phone: [facility] 06-17-2024 09:07-0400 Body weight 122.47 kg Shima Resendez DIRECTOR PRINT Work Phone: [facility] 06-17-2024 09:07-0400 Diastolic blood pressure 60 mm[Hg] Shima Resendez DIRECTOR PRINT Work Phone: [facility] 06-17-2024 09:07-0400 Heart rate 60 /min Shima Resendez DIRECTOR PRINT Work Phone: [facility] 06-17-2024 09:07-0400 Systolic blood pressure 118 mm[Hg] Shima Resendez DIRECTOR PRINT Work Phone: [facility] 01-20-2024 15:12-0400 Blood Pressure Location Ross WEINBERG [facility] 01-20-2024 15:12-0400 Diastolic blood pressure 86 mm[Hg] Ross N[facility] 01-20-2024 15:12-0400 Heart rate 80 /min Ross NILL [facility] 01-20-2024 15:12-0400 Respiratory rate 16 /min Ross NILL [facility] 01-20-2024 15:12-0400 Systolic blood pressure 130 mm[Hg] Ross NILL [facility] 09-16-2021 10:45-0500 Body height 172.72 cm Pat Rogelmond Other [facility] Other 09-16-2021 10:45-0500 Body mass index (BMI) [Ratio] 41.05 kg/m2 Pat Ann Marie Other [facility] Other 09-16-2021 10:45-0500 Body temperature 99 [degF] Pat Rogelmond Other [facility] Other 09-16-2021 10:45-0500 Body weight 122.47 kg Pat Rogelmond Other [facility] Other 09-16-2021 10:45-0500 Respiratory rate 18 /min Pat Rogelmond Other [facility] Other 09-16-2021 10:45-0500 SaO2% (BldA) [Mass fraction] 96 % Pat Ann Marie Other [facility] Other 05-31-2019 10:25-0400 BP Diastolic 78 mm[Hg] [facility] [place] 05-31-2019 10:25-0400 BP Systolic 126 mm[Hg] [facility] , [place] 05-31-2019 10:25-0400 Pulse (Heart Rate) 76 /min Felix [facility], [place] 05-31-2019 10:25-0400 Pulse Oximetry 95 % Felix Cason [facility] , [place] 05-31-2019 10:25-0400 Respiratory Rate 16 /min [facility] [place] [place] 05-31-2019 09:53-0400 Body Temperature 96.8 [degF] Felix [facility] Kamla [place] , [place] 05-31-2019 07:24-0400 BMI (Body Mass Index) 39.43 kg/m2 Felix [facility], [place] 05-31-2019 07:24-0400 Body weight 121.11 kg [facility] , [place] 05-31-2019 07:24-0400 Height 175.3 cm Felix [place], [place] Encounters Encounter Date Encounter Type Care Provider Facility Start: 09-09-2024 End: 09-09-2024 Bamboo flowsheet Piyush Sanders RN [facility] Start: 09-09-2024 End: 09-09-2024 Bamboo flowsheet Piyush Alt RN [facility] Start: 08-30-2024 End: 08-30-2024 Clinisync Result Encounter Generic External Data Provider [facility] External Department Unsolicited Start: 08-30-2024 End: 08-30-2024 Clinisync Result Encounter Generic External Data Provider [facility] External Department Unsolicited Start: 08-20-2024 End: 08-20-2024 Clinisync Result Encounter Generic External Data Provider [facility] External Department Unsolicited Start: 08-20-2024 End: 08-20-2024 Clinisync Result Encounter Generic External Data Provider [facility] External Department Unsolicited Start: 08-10-2024 End: 08-10-2024 Bamboo uli Lux MD Work Phone: [facility] Start: 08-10-2024 End: 08-10-2024 Bamramono flowsbettye Lux MD [facility] Start: 08-10-2024 End: 08-10-2024 Office outpatient new 45 minutes Renetta Lux MD Work Phone: [facility] Comment on above: Type 2 diabetes magi itus with hyperglycemia, without long-term current use of insulin (CMS/HCC) (Primary Dx); Mixed hyperlipidemia (CMS/HCC); Primary hypertension (CMS/HCC); Vitamin D deficiency; Encounter for dietary consultation; Class 3 severe obesity due to excess calories with serious comorbidity and body mass index (BMI) of 40.0 to 44.9 in adult (CMS/HCC) Start: 08-10-2024 End: 08-10-2024 ambulatory RENETTA LUX Not Available Start: 08-02-2024 End: 08-02-2024 ambulatory [facility] Start: 07-22-2024 End: 07-22-2024 Bamboo flowsheet Piyush Alt RN [facility] Start: 07-22-2024 End: 07-22-2024 Bamboo flowsheet Piyush Alt RN [facility] Start: 07-22-2024 End: 07-22-2024 ambulatory PIYUSH ALT Not Available Start: 06-17-2024 End: 06-17-2024 Bamboo flowsheet Shima Resendez DIRECTOR PRINT Work Phone: [facility] Start: 06-17-2024 End: 06-17-2024 Bamboo flowsheet Shima Resendez DIRECTOR PRINT Work Phone: [facility] Start: 06-17-2024 End: 06-17-2024 Office outpatient visit 25 minutes Shima Resendez DIRECTOR PRINT Work Phone: [facility] Comment on above: Mild vascular carol ia without behavioral disturbance, psychotic disturbance, mood disturbance, or anxiety (CMS/HCC) (Primary Dx); Diabetic polyneuropathy associated with type 2 diabetes mellitus (CMS/HCC); Chronic obstructive pulmonary disease, unspecified COPD type (CMS/HCC); Primary hypertension (CMS/HCC); Controlled type 2 diabetes mellitus with diabetic polyneuropathy, without long-term current use of insulin (CMS/HCC); Morbid obesity with BMI of 40.0-44.9, adult ([facility] History of CVA (cerebrovascular accident); Controlled type 2 diabetes mellitus without complication, without long-term current use of insulin ([facility]); Hyperlipidemia, unspecified ([facility]); Type 2 diabetes mellitus without complications ([facility]); Gastro-esophageal reflux disease without esophagitis; Esophageal reflux; Mixed hyperlipidemia ([facility]) Start: 06-17-2024 End: 06-17-2024 ambulatory SHIMA RESENDEZ Not Available Start: 05-10-2024 End: 05-10-2024 [facility] Start: 04-06-2024 End: 04-06-2024 ambulatory SHAIKH JAQUELINED Not Available Start: 03-16-2024 End: 03-16-2024 ambulatory [...] KHALIL FAWWAD Not Available Start: 11-26-2022 [facility] Start: 11-19-2022 End: 11-20-2022 ambulatory EHAB ELTASHELBY Facility:[facility] Start: 10-29-2022 End: 10-29-2022 ambulatory Khalil Fawwad Facility:[facility] Start: 10-29-2022 End: 10-29-2022 ambulatory MD Shaikh Mcnally Work Phone: [facility] Work Phone: Start: 10-29-2022 End: 10-29-2022 Patient encounter procedure MD Shaikh Mcnally Work Phone: [facility] [address] Work Phone: Start: 05-02-2022 End: 05-02-[address] DOCTOR RODRIGES Facility: Start: 09-19-2021 End: 09-20-2021 ambulatory [facility] Start: 09-16-2021 (URG) Urgent Care Visit Pat hunter [facility] Start: 09-16-2021 End: 09-16-2021 ambulatory Pat Jesus Other [employer] Other Start: 07-19-2021 End: 07-20-2021 ambulatory [facility] Start: 07-19-2021 End: 07-19-2021 Subsequent hospital visit by physician Suki Covid Screening Schedule [facility] Covid Screening Comment on above: COVID Start: 08-02-2020 End: 08-05-2020 ambulatory EUSEBIO [facility] Start: 12-08-2019 End: 12-10-2019 Subsequent hospital visit by physician [facility] Comment on above: 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) Start: 05-31-2019 End: 05-31-2019 Subsequent hospital visit by physician Felix Mayo Work Phone: [facility] Start: 03-04-2018 End: 03-05-2018 Ambulatory DEFAULT PHYSICIAN Facility:[facility] Start: 08-02-2017 End: 08-03-2017 Evaluation and management of inpatient NENA NUNEZ [facility] Start: 07-10-2017 End: 07-11-2017 Ambulatory TORICATHERINEALLISON RAMIREZ [facility] Procedures Date Procedure Procedure Detail Performing Clinician Start: 08-30-2024 ALL BASIC METABOLIC PANEL Generic External Data Provider Start: 08-20-2024 ALL BASIC METABOLIC PANEL Generic External Data Provider Start: 08-10-2024 Gluc bld gluc mntr d ev cleared fda spec home use Renetta Lux MD Work Phone: Start: 01-05-2024 Colonoscopy Shima cooper NP Work Phone: Start: 08-02-2020 Ultrasound exam AAA screen EUSEBIO [...] Mane Start: 08-02-2017 TSH WITHOUT REFLEX RENETTA Lim KATIERADHAAlhaji Start: 08-02-2017 NOTIFY PHYSICIAN (SPECIFY) NENA ENRIQUE Start: 08-02-2017 OT EVAL AND TREAT NENA [...] PROCEDURE NENA NUNEZ Start: 1950 Colonoscopy Ross MON MAHAMED Cardiac ablation usi ng fluoroscopy guidance Ross WEINBERG Colonoscopy Ross WEINBERG Partial resection of colon Alhaji ichpari WEINBERG Placement of stent i n coronary artery Ross WEINBERG Plan of Treatment Date Care Activity Detail Author Start: 01-04-2034 Screening for malignant neoplasm of colon [facility] Start: 05-31-2029 Screening for malignant neoplasm of colon Colon cancer screen colonoscopy [employer] Work Phone: Start: 03-23-2026 Glaucoma screening Diabetes: Retinopathy Screening [facility] Start: 11-09-2024 End: 11-09-2024 Patient encounter procedure 11/09/2024 1:40 PM EST Office Visit [facility] [address] [place] [phone] Renetta Lux MD [address] [place] [address] [facility] Start: 09-21-2024 End: 09-21-2024 Patient encounter procedure 09/21/2024 1:00 PM EST Office Visit [facility] [address] [place] [address] Shima Resendez NP [address] [place] [address] [facility] Start: 2024 Medicare Annual Wellness (AWV) Medicare Annual Wellness (AWV) [facility] Start: 09-16-2024 End: 09-16-2024 Patient encounter procedure 09/16/2024 1:00 PM EST Office Visit [facility] [address] [place] [phone] Shima Resendez, DIRECTOR PRINT [address] [place] [phone] [facility] Start: 09-14-2024 End: 09-14-2024 Patient encounter procedure 09/14/2024 11:00 AM EST Office Visit [facility] [address] [place] [phone] Shima Resendez, DIRECTOR PRINT [address] [place] [address] [facility] Start: 09-09-2024 End: 09-09-2024 Clinical Support [facility] Comment on above: Arrived Start: 08-19-2024 End: 08-19-2024 Clinical Support 08/19/2024 2:30 PM EST Clinical Support [facility] [address] [facility] [place] [phone] Piyush Sanders RN [facility] Start: 08-10-2024 End: 08-10-2024 [facility] Comment on above: Type 2 diabetes mellitus with hyperglyce alexand[place], without long-term current use of insulin ([facility]); Diabetes mellitus type 2, noninsulin dependent ([facility]) Start: 07-07-2024 Influenza vaccination Influenza Vaccine (#1) [facility] Comment on above: Postponed from 06/06/2024 (Other Medical Reasons) Start: 06-22-2024 Hemoglobin A1c measurement Diabetes: Hemoglobin A1C [facility] Start: 06-17-2024 End: 06-17-2025 CBC W Auto Differential panel - Blood CBC and differential Lab Routine Primary hypertension ([facility]) Type 2 diabetes mellitus without complications ([facility]) Expected: 06/17/2024 (Approximate), Expires: 06/17/2025 [facility] Comment on above: Expected: 06/17/2024 (Approximate), Expi res: 06/17/2025 Start: 06-17-2024 End: 06-17-2025 Comprehensive metabolic 2000 panel - Serum or Plasma Comprehensive metabolic panel Lab Routine Primary hypertension (CMS/HCC) Type 2 diabetes mellitus without complications (CMS/HCC) Expected: 06/17/2024 (Approximate), Expires: 06/17/2025 [facility] Comment on above: Expected: 06/17/2024 (Approximate), Expi res: 06/17/2025 Start: 06-17-2024 End: 06-17-2025 Hemoglobin A1c/Hemoglobin.total in Blood Hemoglobin A1c Lab Routine Primary hypertension (CMS/HCC) Type 2 diabetes mellitus without complications (CMS/HCC) Expected: 06/17/2024 (Approximate), Expires: 06/17/2025 [facility] Comment on above: Expected: 06/17/2024 (Approximate), Expi res: 06/17/2025 Start: 06-17-2024 End: 06-17-2025 Lipid 1996 panel - Serum or Plasma Lipid panel Lab Routine Hyperlipidemia, unspecified (CMS/HCC) Expected: 06/17/2024 (Approximate), Expires: 06/17/2025 [facility] Comment on above: Expected: 06/17/2024 (Approximate), Expi res: 06/17/2025 Start: 06-17-2024 End: 06-17-2024 Patient encounter procedure 06/17/2024 9:30 AM EDT Office Visit [facility] [address] [place] [address] Shima Resendez NP [address] [place] [address] Mild vascular dementia without behavioral disturbance, psychotic disturbance, mood disturbance, or anxiety ([facility]) (Primary Dx); Diabetic polyneuropathy associated with type 2 diabetes mellitus ([facility]); Chronic obstructive pulmonary disease, unspecified COPD type ([facility]); Primary hypertension ([facility]); Controlled type 2 diabetes mellitus with diabetic polyneuropathy, without long-term current use of insulin ([facility]); Morbid obesity with BMI of 40.0-44.9, adult ([facility] Comment on above: Mild vascular dementia without behaviora l disturbance, psychotic disturbance, mood disturbance, or anxiety ([facility]) (Primary Dx); Diabetic polyneuropathy associated with type 2 diabetes mellitus ([facility]); Chronic obstructive pulmonary disease, unspecified COPD type ([facility]); Primary hypertension ([facility]); Controlled type 2 diabetes mellitus with diabetic polyneuropathy, without long-term current use of insulin ([facility]); Morbid obesity with BMI of 40.0-44.9, adult ([facility]) Start: 06-06-2024 Influenza vaccination Influenza Vaccine (#1) [facility] Start: 05-06-2024 Urine screening for protein Diabetes: Urine Protein Screening [facility] Start: 07-18-2022 End: 07-18-2022 Patient encounter procedure 07/18/2022 Office Visit Pulmonology Steve Lynn DO [address] [address] [facility] Start: 03-20-2022 Diabetic foot examination Diabetic foot [facility] Phone: Start: 03-20-2022 Diabetic microalbuminuria test Diabetic microalbuminuria test [facility] Phone: Start: 03-20-2022 Hemoglobin A1c measurement A1C test (Diabetic or Prediabetic) [employer] Phone: Start: 11-20-2021 Diabetic retinal exam Diabetic retinal exam [facility] Phone: Start: 10-11-2021 End: 10-11-2021 Patient encounter procedure 10/11/2021 Office Visit Neurology Castillo Clark MD [address] [place] [address] [place] [address] [facility] NEUROLOGY [facility] Start: 09-19-2021 End: 09-19-2021 Patient encounter procedure 09/19/2021 Office Visit Family Medicine Eusebio Daniels MD [address] [place] [address] [phone] [facility] Start: 07-27-2021 Annual Wellness Visit (AWV) Annual Wellness Visit (AWV) [facility] Phone: Start: 06-06-2021 Influenza vaccination Flu vaccine (#1) [facility] Phone: Start: 07-02-2020 A1C test (Diabetic or Prediabetic) A1C test (Diabetic or Prediabetic) [place] Start: 07-02-2020 Creatinine measurement Creatinine monitoring [facility] Phone: Start: 07-02-2020 Creatinine monitoring Creatinine monitoring [place], [place] Start: 07-02-2020 Diabetic microalbuminuria test Diabetic microalbuminuria test [place] Start: 07-02-2020 Lipid panel Lipid screen [facility] Phone: Start: 07-02-2020 Lipid screen Lipid [place] Start: 07-02-2020 Potassium monitoring Pot[place] Start: 06-29-2020 End: 06-29-2020 Office Visit 06/29/2020 Office Visit Pulmonology Steve Lynn, [address] [address] [phone] [facility]UL[facility] Start: 05-31-2020 Colon cancer screen colonoscopy Colon cancer screen colonoscopy [place], [place] Start: 04-13-2020 Colon cancer screen colonoscopy Colon cancer screen colon[place] Start: 04-01-2020 [object Object] Diabetic foot exam [place] Start: 02-03-2020 End: 02-03-2020 Office Visit 02/03/2020 Office Visit Neurology Castillo Clark MD [address] [place] [address] [place] [address] [phone] [facility] NEUROLOGY Start: 07-05-2019 End: 07-05-2019 Office Visit 07/05/2019 Office Visit Family Medicine Eusebio Daniels MD [address] [place] [address] [phone] [facility] Start: 07-02-2019 A1C test (Diabetic or Prediabetic) A1C test (Diabetic or Prediabetic) [place] Start: 06-17-2019 End: 06-17-2019 Office Visit 06/17/2019 Office Visit Pulmonology Steve Lynn DO [address] [facility] [address] [place], [place] [id number] [facility] [place] Start: 06-06-2019 Influenza vaccination Flu vaccine (#1) [place] Start: 05-25-2019 Diabetic microalbuminuria test Diabetic microalbuminuria test [place] Start: 04-15-2019 Pneumococcal 65+ years Vaccine (2 of 2 - PPSV23) Pneumococcal 65+ years Vaccine (2 of 2 - PPSV23) [place] Start: 03-21-2019 Annual Wellness Visit (AWV) Annual Wellness Visit (AWV) [place] Start: 02-11-2019 Lipid screen Lipid [place] Start: 01-01-2019 Screening for malignant neoplasm of colon [facility] Start: 11-15-2018 Diabetic retinal exam Diabetic retinal exam [place] Start: 08-03-2018 Creatinine monitoring Creatinine [place] Start: 08-03-2018 Potassium monitoring Pot[place] Start: 05-09-2017 Shingles Vaccine (2 of 3) Shingles Vaccine (2 of 3) [place] Start: 2013 Annual Wellness Visit (AWV) Annual Wellness Visit (AWV) [place] Start: 2000 Screening for malignant neoplasm of lung Low dose CT lung screening [facility] Work Phone: Start: 1969 DTaP/Tdap/Td vaccine (1 - Tdap) DTaP/Tdap/Td vaccine (1 - Tdap) [place] Start: 1969 Hepatitis B vaccine (1 of 3 - Risk 3-dose series) Hepatitis B vaccine (1 of 3 - Risk 3-dose series) [place] Start: 1950 AAA screen AAA screen [place], [place] Start: 1950 Hepatitis C screen Hepatitis C screen [place] Start: 1950 Hepatitis C screening Hepatitis C screen [facility] [employer] Phone: Start: 1950 Screening for malignant neoplasm of colon [facility] End: 07-19-2021 COVID-19 COVID-19 Lab Routine Covid 1 Occurrences starting 07/19/2021 until 07/19/2021 [employer] [facility] [employer] Phone: Comment on above: 1 Occurrences starting 07/19/2021 until 07/19/2021 COVID-19 COVID-19 Lab Rou missy COVID 07/19/2021 12:11 PM EDT [facility] [employer] Work Phone: Microalbumin/Creatin ine panel in random Urine Microalbumin / creatinine urine ratio Lab Routine Primary hypertension (CMS/HCC) Type 2 diabetes mellitus without complications (CMS/HCC) Ordered: 06/17/2024 [facility] [employer] Work Phone: Comment on above: Ordered: 06/17/2024 End: 05-31-2019 POCT glucose POCT glucose Point of Care Testing Routine One Time for 1 Occurrences starting 05/31/2019 until 05/31/2019 [place] Comment on above: One Time for 1 Occurrences starting 05/07 until 05/31/2019 Surgical Pathology Surgical Path ology Lab Routine ONE TIME for 1 Occurrences starting 05/31/2019 [place] Comment on above: ONE TIME for 1 Occurrences starting 05/07 Immunizations Immunization Date Immunization Notes Care Provider [facility] 09-17-2023 influenza virus vaccine, unspecified formulation Ross WEINBERG [facility] [place] 09-17-2023 Influenza, High-dose Seasonal, Quadrivalent, Preservative Free Shima Resendez DIRECT[employer] Work Phone: [facility] 06-03-2023 zoster vaccine recombinant Shima Resendez DIRECT[employer] Work Phone: [facility] 06-03-2023 Shingrix 50 MCG/0.5M L vaccine Shima Resendez DIRECT[employer] Work Phone: [facility] 04-01-2023 zoster vaccine recombinant Shima Resendez DIRECT[employer] Work Phone: [facility] 06-29-2021 COVID-19, Pfizer, PF , 30mcg/0.3mL [facility] Schedule [facility] [place] Comment on above: Result Comment: 2023: [id number] 06-08-2021 SARS-CoV-2 (COVID-19 ) mRNA BNT-162b2 vax Ross DRAKEL [facility] [place] Comment on above: Result Comment: 2023: [id number] 07-16-2020 influenza, high dose seasonal, preservative-free Mthz Schedule [facility] Work Phone: 07-16-2020 Influenza, Quadv, adjuvanted, 65 yrs +, IM, PF (Fluad) Mthz Schedule [facility] Work Phone: 07-05-2019 influenza, injectabl e, quadrivalent, preservative free [facility] 07-05-2019 pneumococcal polysaccharide vaccine, 23 valent [facility] 03-14-2017 zoster vaccine, live [facility] 07-08-2016 Influenza Vaccine, unspecified formulation [facility] , [place] 07-08-2016 influenza virus vaccine, unspecified formulation Shima Resendez DIRECT[employer] Work Phone: [facility] 07-08-2016 influenza, seasonal, injectable Shima Resendez [employer] Work Phone: [facility] 04-05-2016 pneumococcal conjuga te vaccine, 13 valent [facility] 07-26-2015 influenza virus vaccine, unspecified formulation [facility] 07-26-2015 influenza virus vaccine, whole virus Shima Resendez DIRECT[employer] Work Phone: [facility] 04-15-2014 pneumococcal polysaccharide vaccine, 23 valent [facility] Healthcare Payers Date Payer Category Payer Self-pay 2022 Medicare (Managed Care) [employer] [id number] 2022 Unknown 2021 Unknown [id number] 2020 Medicare [id number] 2019 Private Health Insurance [id number] 2018 Private Health Insurance AETNA AETNA SENIOR MEDICARE SUPP xxxxxxxxxx 2018-Present [phone] [address] [place] [address] xxxxxxxxxx [id number] 2016 Unknown [id number] 2015 Medicare [id number] 2014 Medicare MEDICARE MEDICAR E PART A AND B xxxxxxxxxxx 2014-Present [phone] [address] [address] [place] [address] xxxxxxxxxxx [id number] 2014 Medicare [id number] 1950 Unknown [id number] [id number]. 173 1950 Unknown [id number] 2.16.840.1.044741.3.579.2. 173 1950 Unknown [id number] 2.16.840.1.716624.3.579.2. 174 1950 Unknown [id number] 2.16.840.1.013584.3.579.2. 593 1950 Unknown [id number] 2.16.840.1.609675.3.579.2. 593 1950 Unknown [id number] 2.16.840.1.659417.3.579.2. 593 1950 Unknown [id number] 2.16.840.1.375346.3.579.2. 727 1950 Unknown [id number] 2.16.840.1.009525.3.579.2. 1259 1950 Unknown [id number] 2.16.840.1.412561.3.579.2. 1259 1950 Unknown [id number] 2.16.840.1.381905.3.579.2. 1259 1950 Unknown [id number] 2.16.840.1.934295.3.579.2. 1259 1950 Unknown [id number] 2.16.840.1.568880.3.579.2. 1259 1950 Unknown [id number] 2.16.840.1.533088.3.579.2. 1259 1950 Unknown [id number] 2.16.840.1.815624.3.579.2. 1259 1950 Unknown [id number] 2.16.840.1.681112.3.579.2. 1259 Unknown [id number] [id number]. 531 Social History Date Type Detail Facility Start: 05-31-2019 End: 12-16-2023 Tobacco smoking status OHIS Former smoker [facility] [place] End: 03-21-2010 History of tobacco use Current [place] Start: 05-31-2019 End: 2023 Cigarettes smoked current (pack per day) - Reported [place] Start: 05-31-2019 End: 2023 Alcohol intake No [facility] Start: 1950 Sex Assigned At Not on file [place] Start: 11-04-2019 End: 07-19-2021 Alcohol intake Current non-drinker of alcohol (finding) [place] Start: 07-19-2021 End: 12-16-2023 Tobacco use and exposure Never used [employer] Start: 03-20-2021 History SDOH Financial 5 [employer] Work Phone: Start: 03-20-2021 History SDOH Food Worry 1 [employer] Phone: Exposure to SARS-CoV -2 (event) Not sure [facility] [employer] Start: 1950 Sex Assigned At Male F [facility] Tobacco smoking status Never [facility] [place] History of tobacco use Cigarette Smoker [facility] History of tobacco use Passive smoker [facility] Start: 04-06-2024 End: 06-17-2024 Alcoholic beverage intake Ex-drinker (finding) [facility] [...] Equipment Origin al Text Equipment Identifier Dates [id number] Start: 08-11-2024 1 each by Does n ot apply route daily [id number] Test BS daily DX : E11.65 [id number] Start: 04-06-2020 USE ONCE A DAY T O TEST BLOOD SUGARS. [id number] Start: 08-11-2024 End: 08-11-2025 Functional Status Date Assessment Result Facility 01-20-2024 Functional Status N/A [facility] Clinical Notes 09-16-2021 to 08-10-2024 Renetta Lux MD - 08/10/2024 1:40 PM Jossie Resendez, DIRECTOR PRINT - 06/18/2024 1:04 PM Darius Resendez, DIRECTOR PRINT - 06/18/2024 1:01 PM Darius Resendez, DIRECTOR PRINT - 06/18/2024 1:00 PM EDT Note Date & Type Note Facility 08-10-2024 [...] After use, clean tip and replace cap. Yhcwxfgdipf-Rdyxbynig-Sjspzy (Trelegy Ellipta) 200-62.5-25 MCG/ACT aerosol powder 1 [...] daily traZODone (DESYREL) 50 mg, Nightly Umeclidinium [place] (Incruse Ellipta) 62.5 MCG/ACT aerosol powder 1 puff, Daily RT ALLERGIES: No Known Allergies Past Medical History: Diagnosis Date Anxiety and depression ([facility]) Arthritis Atrial fibrillation ([facility]) COPD (chronic obstructive pulmonary disease) ([facility]) Coronary artery disease ([facility]) Diverticulosis DVT (deep venous thrombosis) ([facility]) Essential tremor Fatigue History of CVA (cerebrovascular accident) HTN (hypertension) ([facility]) Hyperlipidemia ([facility]) Hypertension ([facility]) Moderate vascular dementia without behavioral disturbance, psychotic disturbance, mood disturbance, or anxiety ([facility]) Sleep apnea in adult SVT (supraventricular tachycardia) ([facility]) Type 2 diabetes mellitus ([facility]) Past Surgical History: Procedure Laterality Date BOWEL [...] hyperglycemia, without long-term current use of insulin ([facility]) - POCT glucose manually resulted - POCT [...] 5 mg once a day Mixed hyperlipidemia ([facility]) Primary hypertension ([facility]) Vitamin D deficiency Encounter for dietary consultation Diet and exercise reviewed with the patient Class 3 severe obesity due to excess calories with serious comorbidity and body mass index (BMI) of 40.0 to 44.9 in adult ([facility]) Follow up in about 3 months (around 11/10/2024). documented in this encounter [facility] 08-02-2024 Note [facility] Cardiology Clinic Note Chief Complaint: Patient [...] and DM. He used to see [facility] cardiology in [place]. Then saw Dr. Mattson in [place]. Now going to establish care with [place]. Says his BP averages around 130-140's systolic. [...] He built a tricycle out of a [employer] and sold it 2 weeks after he built it. He now bought a [employer] with a short block. He is planning on putting it on a Chevy pickup chassis with a large block engine. He is also redoing a house in [place] that is 4 stories high and has [...] pectoris (CMS/HCC), Atri (more content not included)... [facility] 06-18-2024 History of Present illness Narrative Associated Problem(s): Chronic obstructive pulmonary disease, unspecified COPD type (CMS/HCC) Currently using Trelegy Incruse Ellipta Albuterol Rescue PRN Duoneb nebulizer PRN Follows closely with Dr. Lee Feels symptoms are well controlled at this time. Continue current regimen, Associated Problem(s): Mild vascular dementia without behavioral disturbance, psychotic disturbance, mood disturbance, or anxiety (CMS/HCC) Condition closely monitored by Neurology. Is currently taking Donepezil, Primidone, and Trazodone. Continue to monitor and follow neurology recommendations. Associated Problem(s): Diabetic polyneuropathy associated with type 2 diabetes mellitus (CMS/HCC) Currently taking Gabapentin 300mg TID. Feels symptoms are well controlled. Continue current regimen. Associated Problem(s): Diabetes type 2, controlled (CMS/HCC) Rybelsus 14mg Glimeperide 4mg Januvia 100mg- was started in March Most recent labs: hemoglobin A1C 8.1% in March. Will recheck today. Average 160's; No episode of hypoglycemia No medication adverse effects reported by the patient. Patient educated on lifestyle modifications, dietary restrictions, signs and symptoms of hypoglycemia/hyperglycemia and importance of eating regular consistent meals. Stressed upon importance of checking blood glucose at home and bring blood glucose log to appointments. All questions, concerns answered and addressed. Encouraged to call office if persistent hypoglycemia/hyperglycemia on home glucose monitoring noted. Associated Problem(s): Hyperlipidemia (CMS/HCC) Currently taking Atorvastatin 80mg Denies any myalgias. Most recent Lipid panel Triglycerides elevated. Most recent note from Dr. Corrales 05/10/2024 states to continue current regimen. Will discuss with Cards consideration of Fenofibrate for triglycerides Associated Problem(s): Hypertension (CMS/HCC) Currently taking Cardizem 30mg Sotalol 120mg Ramipril 10mg Furosemide 20mg Checks BP at home; Averages are 120's; Denies orthostatic changes, dizziness, cough, shortness of breath, swelling in extremities. Continue current regimen. Given BP log, advised pt to record BP and bring log back with them to next visit. Cardiology Dr. Fma is managing closely Images from the original note were not included. Subjective Patient ID: Sharon Guo is a 73 y.o. male who presents for Follow-up (3MO). HPI Specialists: Cardiology- Dr. Dr. Corrales Pulmonology- Dr. Lee Neurology- Seeing Dr. Clark in [place], [place]; HTN: Currently taking Cardizem 30mg Sotalol 120mg Ramipril 10mg Furosemide 20mg Checks BP at home; Averages are 120's; Denies orthostatic changes, dizziness, cough, shortness of breath, swelling in extremities. Continue current regimen. Given BP log, advised pt to record BP and bring log back with them to next visit. Cardiology Dr. Fam is managing closely HLD: Currently taking Atorvastatin 80mg Denies any myalgias. Most recent Lipid panel Triglycerides elevated. Most recent note from Dr. Corrales 05/10/2024 states to continue current regimen. Component Ref Range & Units 5 mo ago (01/01/24) 5 mo ago (01/01/24) 5 mo ago (01/01/24) 8 mo ago (10/21/23) 8 mo ago (10/07/23) 8 mo ago (10/07/23) 8 mo ago (10/07/23) TRIGLYCERIDES <=150 mg/dL 324 High 137 R 28.8 R 13.4 Low R 303 High VC, CM 138 R 24.3 R CHOLESTEROL <=200 mg/dL 150 4.5 R 0.4 R 1.3 High R 150 VC, CM 4.3 R 0.4 R HDL CHOLESTEROL 40 - 60 mg/dL 38 Low 11.4 R 4.8 R 12.1 High R 35 Low VC, CM 11.4 R 4.5 R Comment: > or =60 mg/dl - LOW CARDIOVASCULAR RISK <40 mg/dl - HIGH CARDIOVASCULAR RISK LDL CHOLESTEROL CALCULATED mg/dL 48.0 138 High R 2.4 R 2.0 R 55.0 VC, CM 136 High R 2.0 R Comment: <100 mg/dl OPTIMAL 100-129 mg/dl NEAR OR ABOVE OPTIMAL 130-159 mg/dl BORDERLINE HIGH 160-189 mg/dl HIGH >190 mg/dl VERY HIGH VLDL CHOLESTEROL mg/dL 64.8 0.5 R 0.6 R 0.7 R 62.0 VC, CM 0.5 R 0.8 R CHOL HDL RATIO 3.9 49 High R 0.03 R 0.19 High R 4.3 VC, CM 30 R 0.03 R Comment: 3.3 - 4.4 LOW RISK 4.4 - 7.1 AVERAGE RISK 7.1 - 11.0 MODERATE RISK >11.0 HIGH RISK ALANINE AMINOTRANSFERASE 52 R 36 R ALKALINE PHOSPHATASE 90 R 82 R TOTAL PROTEIN 7.3 R 7.1 R ALBUMIN LEVEL 3.4 R 3.2 Low R ALBUMIN GLOBULIN RATIO 0.9 0.8 DM: Rybelsus 14mg Glimeperide 4mg Januvia 100mg- was started in March Most recent labs: hemoglobin A1C 8.1% in March. Will recheck today. Average 160's; No episode of hypoglycemia No medication adverse effects reported by the patient. Patient educated on lifestyle modifications, dietary restrictions, signs and symptoms of hypoglycemia/hyperglycemia and importance of eating regular consistent meals. Stressed upon importance of checking blood glucose at home and bring blood glucose log to appointments. All questions, concerns answered and addressed. Encouraged to call office if persistent hypoglycemia/hyperglycemia on home glucose monitoring noted. DM< eye exam less than 1 year ago. Review of Systems Constitutional: Negative for activity change, appetite change, chills, diaphoresis, fatigue, fever and unexpected weight change. HENT: Negative for congestion, ear pain, rhinorrhea, sinus pressure, sinus pain, sneezing, sore throat, trouble swallowing and voice change. Eyes: Negative for visual disturbance. Respiratory: Negative for cough, chest tightness, shortness of breath and wheezing. Cardiovascular: Negative for chest pain, palpitations and leg swelling. Gastrointestinal: Negative for abdominal distention, abdominal pain, blood in stool, constipation, diarrhea and vomiting. Genitourinary: Negative for decreased urine volume, dysuria, flank pain, frequency, hematuria and urgency. Musculoskeletal: Negative for arthralgias, gait problem, joint swelling and myalgias. Skin: Negative for rash. Neurological: Negative for dizziness, tremors, syncope, weakness, light-headedness and headaches. Psychiatric/Behavioral: Negative for decreased concentration and suicidal ideas. The patient is not nervous/anxious. Hematological: Does not bruise/bleed easily. Endocrine: Negative for cold intolerance, heat intolerance, polydipsia, polyphagia and polyuria. Objective Physical Exam Vitals reviewed. Constitutional: Appearance: Normal appearance. HENT: Head: Normocephalic and atraumatic. Right Ear: Tympanic membrane normal. Left Ear: Tympanic membrane normal. Nose: Nose normal. Mouth/Throat: Mouth: Mucous membranes are moist. Pharynx: Oropharynx is clear. Eyes: Pupils: Pupils are equal, round, and reactive to light. Cardiovascular: Rate and Rhythm: Normal rate and regular rhythm. Pulses: Normal pulses. Heart sounds: Normal heart sounds. Pulmonary: Effort: Pulmonary effort is normal. Breath sounds: Normal breath sounds. Abdominal: General: Abdomen is flat. Bowel sounds are normal. Palpations: Abdomen is soft. Musculoskeletal: General: Normal range of motion. Cervical back: Normal range of motion. Skin: General: Skin is warm and dry. Capillary Refill: Capillary refill takes less than 2 seconds. Neurological: General: No focal deficit present. Mental Status: He is alert and oriented to person, place, and time. Psychiatric: Mood and Affect: Mood normal. Behavior: Behavior normal. Assessment/Plan Problem List Items Addressed This Visit Diabetes type 2, controlled (CMS/HCC) Rybelsus 14mg Glimeperide 4mg Januvia 100mg- was started in March Most recent labs: hemoglobin A1C 8.1% in March. Will recheck today. Average 160's; No episode of hypoglycemia No medication adverse effects reported by the patient. Patient educated on lifestyle modifications, dietary restrictions, signs and symptoms of hypoglycemia/hyperglycemia and importance of eating regular consistent meals. Stressed upon importance of checking blood glucose at home and bring blood glucose log to appointments. All questions, concerns answered and addressed. Encouraged to call office if persistent hypoglycemia/hyperglycemia on home glucose monitoring noted. Relevant Medications SITagliptin (Januvia) 100 MG tablet semaglutide (Rybelsus) 14 MG tablet Hyperlipidemia (CMS/HCC) Currently taking Atorvastatin 80mg Denies any myalgias. Most recent Lipid panel Triglycerides elevated. Most recent note from Dr. Corrales 05/10/2024 states to continue current regimen. Will discuss with Cards consideration of Fenofibrate for triglycerides Hypertension (CMS/HCC) Currently taking Cardizem 30mg Sotalol 120mg Ramipril 10mg Furosemide 20mg Checks BP at home; Averages are 120's; Denies orthostatic changes, dizziness, cough, shortness of breath, swelling in extremities. Continue current regimen. Given BP log, advised pt to record BP and bring log back with them to next visit. Cardiology Dr. Fam is managing closely Relevant Orders Microalbumin / creatinine urine ratio Hemoglobin A1c Comprehensive metabolic panel CBC and differential Morbid obesity with BMI of 40.0-44.9, adult ([facility]) Discussed with patient their BMI (actual, verses recommended). We have also discussed lifestyle modifications: attempts to perform physical activity as chronic conditions allow, also to monitor dietary intake: increasing protein/fruits/veggies and lowering carb intake (unless contraindicated). Limit sodas, juices, and sugary drinks. Also discussed oral medications that can be utilized for weight loss, as well as surgical options for weight loss. Chronic obstructive pulmonary disease, unspecified COPD type ([facility] [facility] Currently using Trelegy Incruse Ellipta Albuterol Rescue PRN Duoneb nebulizer PRN Follows closely with Dr. Jesus Malave symptoms are well controlled at this time. Continue current regimen, Mild vascular dementia without behavioral disturbance, psychotic disturbance, mood disturbance, or anxiety ([facility]) - Primary Condition closely monitored by Neurology. Is currently taking Donepezil, Primidone, and Trazodone. Continue to monitor and follow neurology recommendations. Diabetic polyneuropathy associated with type 2 diabetes mellitus ([facility]) Currently taking Gabapentin 300mg TID. Ananda symptoms are well controlled. Continue current regimen. Relevant Medications gabapentin (Neurontin) 300 MG capsule History of CVA (cerebrovascular accident) Relevant Medications aspirin 81 MG EC tablet Other Visit Diagnoses Hyperlipidemia, unspecified ([facility]) Relevant Medications atorvastatin (Lipitor) 80 MG tablet aspirin 81 MG EC tablet Other Relevant Orders Lipid panel Type 2 diabetes mellitus without complications ([facility]) Relevant Medications glimepiride (Amaryl) 4 MG tablet Other Relevant Orders Microalbumin / creatinine urine ratio Hemoglobin A1c Comprehensive metabolic panel CBC and differential Gastro-esophageal reflux disease without esophagitis Relevant Medications omeprazole (PriLOSEC) [address] capsule Esophageal reflux Relevant Medications omeprazole (PriLOSEC) [address] capsule [facility] and find out who prescribes what medications and what needs refilled; Associated Problem(s): Morbid obesity with BMI of 40.0-44.9, adult ([facility]) Discussed with patient their BMI (actual, verses recommended). We have also discussed lifestyle modifications: attempts to perform physical activity as chronic conditions allow, also to monitor dietary intake: increasing protein/fruits/veggies and lowering carb intake (unless contraindicated). Limit sodas, juices, and sugary drinks. Also discussed oral medications that can be utilized for weight loss, as well as surgical options for weight loss. documented in this encounter [facility] 06-17-2024 Instructions Shima Resendez NP - 06/17/2024 9:30 AM EDT FASTING labs ordered. Nothing to eat or drink for 12 hours prior to blood draw. Water and black coffee ok. Your blood pressure is GOOD in the office today. Check your blood pressure at home 3 times per week, preferably in the afternoon. Goal <130/90. Record results in blood pressure log. Bring back with you to your next visit. Education: Check blood sugars daily, notify if <70 or >200. Take medications (pills or insulin) as directed. Monitor for s/s of hypoglycemia (sweaty, dizziness, nausea, vomiting, or shakiness). Watch for increase in thirst, urination, or appetite. Inspect feet frequently monitoring for open wounds , and also recommend yearly eye exam. Pt should attempt to remain as physically active as chronic conditions allow, as well as trying to follow a diet low in carbohydrates, and simple sugars. documented in this encounter [facility] 05-10-2024 Note [facility] Cardiology Clinic Note Chief Complaint: Patient [...] and DM. He used to see [facility] cardiology in [place]. Then saw Dr. Mattson in [place]. Now going to establish care with [place]. Says his BP averages around 130-140's systolic. 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 Does not exercise. He built a tricycle out of a [employer] and sold it 2 weeks after he built it. He now bought a 52 Chevrolet with a short block. He is planning on putting it on a Chevy pickup chassis with a large block engine. He is also redoing a house in [place] that is 4 stories high and has [...] CAD (coronary artery (more content not included)... [facility] 01-26-2024 Note Chief Complaint consultation [...] Oral, BID traZODONE (more content not included)... [facility] Comment on above: Result Comment: Elec tronically Signed By: SULTANA GATES, Ross Trejo\Date and Time Signed: 01/26/24 08:05 EDT 11-19-2022 Note CARDIAC STRESS TEST Requesting Physician: Procedure Date:11/19/2022 This was a Lexiscan Stress Test with myocardial perfusion imaging performed at the [facility] on 11/19/2022. Informed consent was obtained. An [...] perfusion images will be reported separately. [facility] 09-16-2021 Evaluation note Encounter Date Diagnosis Assessment [...] care instructions given in writting by [facility] Care At Home document. [employer] Other Evaluation + Plan note No data available for this section General Surgery [place] Evaluation note* Diagnosis COVID documented in this encounter [facility] Work Phone: evaluation noteNo assessment information available [facility] Work Phone: Evaluation note* Diagnosis Encounter for screening for malignant neoplasm of colon- Primary Controlled type 2 diabetes mellitus without complication, without long-term current use of insulin ([facility]) Hyperlipidemia, unspecified hyperlipidemia type ([facility]) Diabetic polyneuropathy associated with type 2 diabetes mellitus (CMS/HCC) Chronic obstructive pulmonary disease, unspecified COPD type ([facility]) Morbid obesity with BMI of 40.0-44.9, adult ([facility]) Mild vascular dementia without behavioral disturbance, psychotic disturbance, mood disturbance, or anxiety ([facility]) Depression, recurrent ([facility]) Major depressive disorder, recurrent episode, unspecified Atrial fibrillation, unspecified type (CMS/HCC) Primary hypertension (CMS/HCC) Unspecified essential hypertension COPD with acute exacerbation ([facility])- Primary Diabetic polyneuropathy associated with type 2 diabetes mellitus ([facility])- Primary Chronic obstructive pulmonary disease, unspecified COPD type ([facility]) Primary hypertension ([facility]) Unspecified essential hypertension Atrial fibrillation, unspecified type ([facility]) Controlled type 2 diabetes mellitus with diabetic polyneuropathy, without long- term current use of insulin ([facility]) Hyperlipidemia, unspecified hyperlipidemia type ([facility]) Encounter for screening colonoscopy Non-seasonal allergic rhinitis, unspecified trigger Controlled type 2 diabetes mellitus without complication, without long-term current use of insulin ([facility]) Controlled type 2 diabetes mellitus with diabetic polyneuropathy, without long- term current use of insulin ([facility])- Primary Atrial fibrillation, unspecified type ([facility]) Primary hypertension ([facility]) Unspecified essential hypertension Mild vascular dementia without behavioral disturbance, psychotic disturbance, mood disturbance, or anxiety ([facility])- Primary Diabetic polyneuropathy associated with type 2 diabetes mellitus ([facility]) Chronic obstructive pulmonary disease, unspecified COPD type ([facility]) Primary hypertension ([facility]) Unspecified essential hypertension Controlled type 2 diabetes mellitus with diabetic polyneuropathy, without long- term current use of insulin ([facility]) Morbid obesity with BMI of 40.0-44.9, adult ([facility]) History of CVA (cerebrovascular accident) Transient ischemic attack (TIA), and cerebral infarction without residual deficits Controlled type 2 diabetes mellitus without complication, without long-term current use of insulin ([facility]) Hyperlipidemia, unspecified ([facility]) Type 2 diabetes mellitus without complications ([facility]) Gastro-esophageal reflux disease without esophagitis Esophageal reflux Mixed hyperlipidemia ([facility]) Mixed hyperlipidemia Type 2 diabetes mellitus with hyperglycemia, without long-term current use of insulin ([facility])- Primary Mixed hyperlipidemia ([facility]) Mixed hyperlipidemia Primary hypertension ([facility]) Unspecified essential hypertension Vitamin D deficiency Encounter for dietary consultation Class 3 severe obesity due to excess calories with serious comorbidity and body mass index (BMI) of 40.0 to 44.9 in adult ([facility]) documented in this encounter [facility] HealthcareEvaluation note* Diagnosis Mild vascular dementia without behavioral disturbance, psychotic disturbance, mood disturbance, or anxiety ([facility])- Primary Diabetic polyneuropathy associated with type 2 diabetes mellitus ([facility]) Chronic obstructive pulmonary disease, unspecified COPD type ([facility]) Primary hypertension ([facility]) Unspecified essential hypertension Controlled type 2 diabetes mellitus with diabetic polyneuropathy, without long- term current use of insulin ([facility]) Morbid obesity with BMI of 40.0-44.9, adult ([facility]) History of CVA (cerebrovascular accident) Transient ischemic attack (TIA), and cerebral infarction without residual deficits Controlled type 2 diabetes mellitus without complication, without long-term current use of insulin ([facility]) Hyperlipidemia, unspecified ([facility]) Type 2 diabetes mellitus without complications ([facility]) Gastro-esophageal reflux disease without esophagitis Esophageal reflux Mixed hyperlipidemia ([facility]) Mixed hyperlipidemia documented in this encounter [facility] Narrative - Reported* Type Description Date Medical History DM2 Medical History stroke Medical History a-fib Medical History hypertension Surgical History cataract Surgical History heart stent Hospitalization History [facility] Discharge instructions No data available for this section General Surgery [employer] Progress note No data available for this section General Surgery [employer] Summary Purpose Family History No Family History Records FoundNo Family History Records FoundNo Family History Records FoundNo Family History Records FoundNo Family History Records FoundNo Family History Records Found No data available for this section No Family History Records FoundNo Family History Records FoundNo Family History Records Found Advance Directives Documents on File Type Date Recorded Patient Insulation Cutter Expl anation Advance Directives and Living Will Power of Restaurant Area Manager Latest Code Status on File Code Status [...] Documents on File Type Date Recorded Patient Insulation Cutter Expl anation ACP-Advance Directive ACP-Power of Restaurant Area Manager Latest Code Status on File Code Status [...] Discharge Medication: Sharon Guo Home Medication Instructions YENNIFER:[id number] Printed on:05/31/19 0950 Medication Information apixaban (ELIQUIS) [...] EXTRACRANIAL BILAT STUDY Castillo Clark MD [address] [facility] [address] [place] [address] [facility] [address] [place] [address] Status Reason Specialty Diagnoses / Procedures Re ferred By Contact Referred To Contact Closed Radiology Diagnoses 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) Procedures CT HEAD WO CONTRAST HC CTA HEAD W & W/O CONT HC CT BRAIN W/O CONTRAST Castillo Clark MD [address] [facility] [address] [place] [address] [facility] Ct Scan [address] [place] [address] Assessments Diagnosis 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) Additional Source Comments (unrecognized sect ion and content) No Status Records FoundNo Status Records FoundNo Status Records FoundNo Status Records FoundNo Status Records FoundNo Status Records FoundNo Status Records FoundNo Status Records FoundNo Status Records Found INFORMATION SOURCE (unrecogn ized section and content) DATE CREATED AUTHOR 03/25/2018 [facility] DATE CREATED AUTHOR AUTHOR'S ORGANIZ ATION 04/13/2018 [facility] DATE CREATED AUTHOR AUTHOR'S ORGANIZ ATION 07/20/2021 [facility] DATE CREATED AUTHOR AUTHOR'S ORGANIZ ATION 09/20/2021 [facility] DATE CREATED AUTHOR AUTHOR'S ORGANIZ ATION 11/07/2022 [facility] DATE CREATED AUTHOR AUTHOR'S ORGANIZ ATION 11/28/2022 [facility] DATE CREATED AUTHOR AUTHOR'S ORGANIZ ATION 01/26/2024 [facility] DATE CREATED AUTHOR AUTHOR'S ORGANIZ ATION 08/12/2024 [facility] DATE CREATED AUTHOR AUTHOR'S ORGANIZ ATION 08/30/2024 [facility] Reason for Visit (unrecogniz ed section and content) Status Reason Specialty Diagnoses / Procedures Referre d By Contact Referred To Contact Diagnoses SCREENING Procedures [place] OFFICE/OUTPT VISIT,PROCEDURE ONLY [place] COLONOSCOPY FLX DX W/COLLJ SPEC WHEN PFRMD COLONOSCOPY Back, MD Felix [address] [place] [address] [facility] Status Reason Specialty Diagnoses / Procedures Re ferred By Contact Referred To Contact Pending Review Vascular Lab Diagnoses 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) Procedures VL DUP CAROTID BILATERAL HC EXTRACRANIAL BILAT STUDY Castillo Clark MD [address] [place] [address] [address] [place] [address] [facility] [address] [place] [address] Status Reason Specialty Diagnoses / Procedures Re ferred By Contact Referred To Contact Closed Radiology Diagnoses 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) Procedures CT HEAD WO CONTRAST HC CTA HEAD W & W/O CONT HC CT BRAIN W/O CONTRAST Castillo Clark MD [address] [place] [address] [address] [place] [address] [facility] [address] [place] [address] Reason Comments Diabetes [facility] IN [facility] 1 MONTH AGO AIC 8.7% Specialty Diagnoses / Procedures Referred By Contac t Referred To Contact Endocrinology Diagnoses Diabetes mellitus type 2, noninsulin dependent (CMS/HCC) Procedures [place] OFFICE/OUTPATIENT [facility] 60 MINUTES Shima Resendez, ANA [address] [address] Phone: tel: fax: Renetta Lux MD [address] [place] [address] Phone: tel: fax: Referral ID Status Reason Start Date Expiration Date V isits Requested Visits Authorized [id number] Closed Specialty Services Required 06/28/2024 12/25/2024 1 1 Reason Comments Follow-up [facility] Care Teams (unrecognized sec tion and content) Team Status: Inactive Member Role Status Dates Shaikh Dali MD Attending Provider Active Supervisor Yard Relationship Specialty Start Date End Date Shaikh Mcnally MD [address] [place] [address] PCP - Devoted 06/06/22 Demetrio Lowry MD [address] [place] [address] PCP - General Family Medicine 05/11/24 Shima Resendez NP [address] [place] [address] Nurse Practitioner Family Medicine 05/11/24 Nichol Lee LPN Licensed Practical Nurse Family Medicine 06/18/24 Supervisor Yard Relationship Specialty Start Date End Date Shaikh Mcnally MD [address] [place] [address] PCP - Devoted 06/06/22 10/05/24 Demetrio Lowry MD [address] [place] [address] PCP - General Family Medicine 05/11/24 Shima Resendez NP [address] [place] [address] Nurse Practitioner Family Medicine 05/11/24 Nichol Lee LPN Licensed Practical Nurse Family Medicine 06/18/24 Supervisor Yard Relationship Specialty Start Date End Date Shaikh Mcnally MD [address] [place] [address] PCP - Devoted 06/06/22 10/05/24 Demetrio Lowry MD [address] [place] [address] PCP - General Family Medicine 05/11/24 Shima Resendez NP [address] [place] [address] Nurse Practitioner Family Medicine 05/11/24 Nichol Lee LPN Licensed Practical Nurse Family Medicine 06/18/24 Supervisor Yard Relationship Specialty Start Date End Date Shaikh Mcnally MD [address] [place] [address] PCP - Devoted 06/06/22 10/05/24 Demetrio Lowry MD [address] [place] [address] PCP - General Family Medicine 05/11/24 Shima Resendez NP [address] [place] [address] Nurse Practitioner Family Medicine 05/11/24 Gina Li MA Family Medicine 08/13/24 Supervisor Yard Relationship Specialty Start Date End Date Shaikh Mcnally MD [address] [place] [address] PCP - Devoted 06/06/22 10/05/24 Demetrio Lowry MD [address] [place] [address] PCP - General Family Medicine 05/11/24 Shima Resendez NP [address] [place] [address] Nurse Practitioner Family Medicine 05/11/24 Gina Li MA Family Medicine 08/13/24 Supervisor Yard Relationship Specialty Start Date End Date Shaikh Mcnally MD [address] [place] [address] PCP - Devoted 06/06/22 Demetrio Lowry MD [address] [place] [address] PCP - General Family Medicine 05/11/24 Zoë Beckford LPN Licensed Practical Nurse Family Medicine 02/09/24 Shima Resendez NP [address] [place] [address] Nurse Practitioner Family Medicine 05/11/24 Supervisor Yard Relationship Specialty Start Date End Date Shaikh Mcnally MD [address] [place] [address] PCP - Devoted 06/06/22 Demetrio Lowry MD [address] [place] [address] PCP - General Family Medicine 05/11/24 Zoë Beckford LPN Licensed Practical Nurse Family Medicine 02/09/24 Shima Resendez NP [address] [place] [address] Nurse Practitioner Family Medicine 05/11/24 Goals (unrecognized section and content) Goals may [...] BE BASED ON THE PRIMARY CLINICAL RECORDS. [employer] [facility]. provides no warranty or guarantee of the accuracy or completeness of information in this document.
[2024-09-15 11:59] LABS: Alanine Aminotransferase 48 U/L (16-63); Albumin Globulin Ratio 0.7; Albumin Level 3.2 g/dL (3.4-5.0); Alkaline Phosphatase 90 U/L (46-116); Anion Gap 14.7; Aspartate Amino Transferase 52 U/L (15-37); Bilirubin Total 0.4 mg/dL (0.2-1.0); Calcium 9.1 mg/dL (8.5-10.1); Carbon Dioxide 30.2 mmol/L (21.0-32.0); Chloride 103 mmol/L (98-107); Chol HDL Ratio 4.5; Cholesterol 138 mg/dL (<=200); Estimated GFR (African America 51 (>=60 mL/min/1.73m^2); Estimated GFR (Non-African Ame 42 (>=60 mL/min/1.73m^2); Globulin 4.6 g/dL; Glucose 235 mg/dL (74-106); HDL Cholesterol 31 mg/dL (40-60); Potassium 4.9 mmol/L (3.5-5.1); Sodium 143 mmol/L (136-145); Total Protein 7.8 g/dL (6.4-8.2); Triglycerides 262 mg/dL (<=150); VLDL CHOLESTEROL 52.4 mg/dL
== END 2024-09-15 10:41 | disposition home or self-care (01) ==
LOC: LAB 10:42
PROVIDERS: Visit Provider Internal Medicine Interventional Cardiology
DX: I11.9 Hypertensive heart disease without heart failure (principal); E78.5 Hyperlipidemia, unspecified
CPT/HCPCS: 36415; 80053; 80061

== ENCOUNTER 2024-09-15 11:01 | Outpatient (OUT) | payer OTHER, SELFPAY ==
--- NOTE | 2024-09-15 11:07 | XR_ITS ---
[facility] [place] [id number] Patient Name: SHARON GUO MRN: [id number] date: 1950 Sex: M Assigned Patient Location: RAD Current Patient Location: RAD Accession/Order Number: [id number] Exam Date: 09/15/2024 11:16 Report Date: 09/15/2024 18:07 At the request of: SHIMA KULKARNI Procedure: XR chest 2V EXAM: XR chest 2V HISTORY: Shortness Of Breath COMPARISON: 04/24/2022 TECHNIQUE: Upright PA and lateral chest x-ray FINDINGS: Lungs are clear, without evidence of a focal infiltrate, effusion or pneumothorax. The heart is not enlarged and the vasculature is not distended. The osseous structures are grossly intact. XR/XR chest 2V IMPRESSION: No acute infiltrate or evidence of cardiac decompensation, and the overall appearance of the chest is essentially unchanged. Electronically authenticated by: NIKUNJ SALES Date: 09/15/2024 18:07
--- OUTSIDE RECORDS SUMMARY | 2024-09-15 11:21 | XMS_ITS | CCD ---
Author Organization [facility] Care Team Providers Care Rn Cvor Name Role Phone PHYSICIAN, DEFAULT Unavailable Unavailable [...] Primary Care Unavailable Pat Jesus Unavailable MD Indgio Mcnally Attending Provider Shaikh Mcnally Attending Unavailable [...] Unavailable Demetrio Lowry MD Primary Care Provider [phone] Dipti PEREZ, Shima Unavailable [phone] Nichol Lee LPN Unavailable Unavailable Shaikh Mcnally MD Unavailable SHAIKH MCNALLY Attending Unavailable DALI, Attending Unavailable SHAIKH MCNALLY Attending Unavailable DALI, Attending Unavailable SHAIKH MCNALLY Attending Unavailable SHIMA RESENDEZ Attending Unavailabl e PIYUSH SANDERS Attending Unavailable SHIMA RESENDEZ Referring Unavailabl e RENETTA LUX Attending Unavailable SHIMA RESENDEZ Referring Unavailabl e ELTASHELBY, EHAB Attending Unavailable ELTAHAWCarmencita, EHAB Attending Unavailable Gina Li MA Unavailable Unavailable [place] WEATHERIZATION TECHNICIAN, Ardana Unavailable Unavailable Analy WEATHERIZATION TECHNICIAN, Ardana Unavailable Unavailable Allergies Allergy Classification Reported Allergen(s) Allergy Type Date of Onset Reaction(s) Facility (1 source) No Known Medication Allergies; Translations: [No Known Medication Allergies] Propensity to adverse reactions (disorder) [facility] Repository Medications Current Medications Medication Drug [...] hyperglycemia, without long-term current use of insulin ([facility]) Use to test daily 1 [...] hyperglycemia, without long-term current use of insulin ([facility]) Take 1 tablet (5 mg) [...] hyperglycemia, without long-term current use of insulin ([facility]) Take 1 tablet by [...] hyperglycemia, without long-term current use of insulin ([facility]) TAKE 1 TABLET BY MOUTH TWICE A DAY WITH MEALS 180 tablet 1 02/09/2021 Active Start: 09-27-2019 take 1 tablet by hector th twice daily at mealtime metFORMIN (GLUCOPHAGE) 1000 MG tablet Indications: Controlled type 2 diabetes mellitus with hyperglycemia, without long-term current use of insulin ([facility]) Take 1 tablet by mouth 2 times daily (with meals) 60 tablet 5 09/27/2019 Active Start: 04-01-2019 take 1 tablet by hector th twice daily at mealtime metFORMIN (GLUCOPHAGE) 1000 MG tablet Indications: Controlled type 2 diabetes mellitus with hyperglycemia, without long-term current use of insulin ([facility]) Take 1 tablet by [...] Start: 12-19-2023 take 1 capsule by mo [facility] once daily omeprazole 20 mg Cap-DR 20 mg = 1 cap(s), Oral, Daily, Refills(s) 0 Start Date: 12/19/23 Status: Ordered Start: 03-15-2021 take 1 capsule by mo ut once daily omeprazole (PRILOSEC) 20 MG delayed release capsule TAKE 1 CAPSULE BY MOUTH EVERY DAY 90 capsule 1 03/15/2021 Active Start: 12-24-2018 take 1 capsule by mo [facility] once daily omeprazole (PRILOSEC) 20 MG [...] Start: 12-24-2018 take 1 capsule by mo [facility] twice daily ramipril (ALTACE) 5 MG [...] puff(s) by inhalation in the morning Umeclidinium [place] (Incruse Ellipta) 62.5 MCG/ACT aerosol powder Inhale [...] Coronary arteriosclerosis; Translations: [Atherosclerotic heart disease of [place] coronary artery without angina pectoris] Onset: 01-20-2012 [...] (BMI) of 40.0 to 44.9 in adult ([facility])] 08-10-2024 Chronic Other upper respiratory [...] 04-06-2024 04-06-2024 Episodic Other aftercare (1 source) 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 1 mg/dL [facility] Chloride [Moles/Vol] 102 mmol/L 98 - 10 7 mmol/L [facility] CO2 [Moles/Vol] 31.5 mmol/L 21.0 - 32.0 mmol/L [facility] Creatinine [Mass/Vol] 1.54 mg/dL High 0.70 - 1.30 mg/dL [facility] GFR/1.73 sq M.predicted CKD-EPI (S/P/Bld) [Vol rate/Area] 54 Low >=60 mL/min/1.73 m 2 [facility] Glucose [Mass/Vol] 131 mg/dL High 74 - 106 mg/dL [facility] Interpretation and review of laboratory results Abnormal [facility] Potassium [Moles/Vol] 4.2 mmol/L 3.5 - 5.1 mmol/L [facility] Sodium [Moles/Vol] 142 mmol/L 136 - 145 mmol/L [facility] TBH EGFR-NON AF BAHRAINI 45 Low >=60 mL/min/1.73 m 2 [facility] Urea nitrogen [Mass/Vol] 23 mg/dL High 7.0 - 18.0 mg/dL [facility] Urea nitrogen/Creatinine [Mass ratio] 14.9 mg/mg [facility] 36on 08-24-2024 36 Patient called back and I informed him of message from Dr. Mendez. He will have labs on Friday, 08/30. 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 [facility] 36 Regarding lab result s from 08/20/2024: MD Dalila Trujillo MA Please have him hold [employer] and recheck a BMP in 5 days Thanks Spoke with patient's and she will have him return my call. [facility] Orders Onlyon 08-24-2024 Orders Only [id number] Sharon Guo 1950 M Date Provider Department Center 08/24/2024 8-DALILA VELASCO EDU [facility] Family History Problem Relation Age of Onset Coronary artery disease Maternal Grandmother Coronary artery disease Maternal Grandfather Cerebral aneurysm Paternal Grandmother Family Status - Relation Status Age at Maternal Grandmother Maternal Grandfather Paternal Grandmother [facility] ALL BASIC METABOLIC PANELon 08-20-2024 Anion gap [Moles/Vol] 13.1 mmol/L NO [facility] Calcium [Mass/Vol] 9.5 mg/dL 8.5 - 10. 1 mg/dL [facility] Chloride [Moles/Vol] 102 mmol/L 98 - 10 7 mmol/L [facility] CO2 [Moles/Vol] 31.2 mmol/L 21.0 - 32.0 mmol/L [facility] Creatinine [Mass/Vol] 1.46 mg/dL High 0.70 - 1.30 mg/dL [facility] GFR/1.73 sq M.predicted CKD-EPI (S/P/Bld) [Vol rate/Area] 57 Low >=60 mL/min/1.73 m 2 [facility] Glucose [Mass/Vol] 137 mg/dL High 74 - 106 mg/dL [facility] Interpretation and review of laboratory results Abnormal [facility] Potassium [Moles/Vol] 4.3 mmol/L 3.5 - 5.1 mmol/L [facility] Sodium [Moles/Vol] 142 mmol/L 136 - 145 mmol/L [facility] TBH EGFR-NON AF BAHRAINI 47 Low >=60 mL/min/1.73 m 2 [facility] Urea nitrogen [Mass/Vol] 21 mg/dL High 7.0 - 18.0 mg/dL [facility] Urea nitrogen/Creatinine [Mass ratio] 14.4 mg/mg [facility] Glucose (Bld) [Mass/Vol]on 10-10-2023 Glucose Blood, POC 178 mg/dL [facility] Office Visiton 08-02-2024 Follow-up visit [id number] Sharon Guo 1950 [facility] Provider Department Center 08/02/2024 CHALO GOMEZ EDU [facility] Family History Problem Relation Age of Onset Coronary artery disease Maternal Grandmother Coronary artery disease Maternal Grandfather Cerebral aneurysm Paternal Grandmother Family Status - Relation Status Age at Maternal Grandmother Maternal Grandfather Paternal Grandmother Level of Service:35988 [place] OFFICE/OUTPATIENT ESTABLISHED MOD MDM 30 MIN Normal [facility] Office Visiton 05-10-2024 Follow-up visit [id number] Sharon Guo 1950 [facility] Provider Department Center 05/10/2024 CHALO GOMEZ EDU [facility] Family History Problem Relation Age of Onset Coronary artery disease Maternal Grandmother Coronary artery disease Maternal Grandfather Cerebral aneurysm Paternal Grandmother Family Status - Relation Status Age at Maternal Grandmother Maternal Grandfather Paternal Grandmother Level of Service:69450 [place] OFFICE/OUTPATIENT ESTABLISHED MOD MDM 30 MIN Normal [facility] Facesheeton 01-21-2024 Facesheet [id number] 0 [id number]. [id number] [facility] Ambulatory Visit Summaryon 0 4- Ambulatory [...] for choosing us for your care. Normal [facility] Reminderson 01-20-2024 Reminders - From: Day Machado LPN To: N - Clinical; Sent: 01/20/2024 16:21:49 EDT Show up: 05/06/2029 07:00:00 EDT Subject: colonoscopy recall Due Date/Time: 05/31/2029 07:00:00 EDT Reminder/Recall Patient due for screening colonoscopy 05/2029. Normal [facility] Physician Referralon 024 Physician Referral [id number] 3 [id number] Normal [facility] NM STRESS/REST MULTIon 11-19 NM STRESS/REST MULTI Patient: SHARON GUO Exam Date: 11/19/2022 : 1950 Gender:M Ordering : DR CHALO MENDEZ M.D. Admission #: [id number] Family : Order #: [id number] CLICK HERE TO VIEW EXAM RADIOLOGY REPORT [...] Cotter M.D. on 11/27/2022 at 15:02 Normal [facility] A1C with Estimated Average Koffi stuart 10-29-2022 Glucose [Mass/Vol] 169 mg/dL Normal [facility] Comment on above: Result Comment: PERF ORMED BY: [place] [address] PATHOLOGIST OPERATIONS SUPERINTENDENT WINTER RODRIGUEZ M.D. Performed By: #### U RMACRERAT, CBC, A1C WT eA, LIPID, CMP #### [facility] [address] [place] [address] HbA1c (Bld) [Mass fraction] 7.5 % High 4.3-5.6 [facility] Comment on above: Result Comment: Incr eased risk for diabetes: 5.7 - 6.4 diabetes: >6.4 glycemic control for adults with diabetes: <7.0 Performed By: #### U RMACRERAT, CBC, A1C WTH eA, LIPID, CMP #### [facility] [address] [place] [address] Albumin [Mass/volume] in Ser um or PlasmaOrdered By: Shaikh Dali on 10-29-2022 Albumin [Mass/Vol] 3.8 g/dL 3.2-5.5 [facility] Basophils Auto (Bld) [#/Vol] Ordered By: Shaikh Dali on 10-29-2022 Basophils (Bld) [#/Vol] 0.1 10*3/uL 0.0-0.2 [facility] Basophils/100 WBC Auto (Bld) Ordered By: Shaikh Dali on 10-29-2022 Basophils/100 WBC (Bld) 0.7 % . [facility] Cholesterol [Mass/volume] in Serum or PlasmaOrdered By: Shaikh Dali on 10-29-2022 Cholesterol [Mass/Vol] 147 mg/dL 140-200 [facility] Comment on above: Chol less than 200 m g/dl low riskChol 201-239 mg/dl borderline riskChol 240 mg/dl and greater high risk Cholesterol in LDL Calc [Mas s/Vol]Ordered By: Shaikh Dali on 10-29-2022 Cholesterol in LDL [Mass/Vol] 62 mg/dL 0-100 [facility] Comment on above: LDL ATP III CLASSIFI CATIONLDL less than 100 mg/dL OptimalLDL 100-129 mg/dL Near or above optimalLDL 130-159 mg/dL Borderline highLDL 160-189 mg/dL HighLDL greater than 189 mg/dL Very high Cholesterol in VLDL Calc [Ma ss/Vol]Ordered By: Shaikh Dali on 10-29-2022 Cholesterol in VLDL [Mass/Vol] 57 mg/dL [facility] Complete Blood Count Auto Di ffon 10-29-2022 Basophils (Bld) [#/Vol] 0.1 10*3/uL Normal 0.0-0.2 [facility] Comment on above: Result Comment: PERF ORMED BY: [place] [address] PATHOLOGIST OPERATIONS SUPERINTENDENT WINTER RODRIGUEZ M.D. Performed By: #### U RMACRERAT, CBC, A1C WTH eA, LIPID, CMP #### [facility] [address] Basophils/100 WBC (Bld) 0.7 % Normal . [facility] Comment on above: Performed By: #### U RMACRERAT, CBC, A1C WTH eA, LIPID, CMP #### [facility] [address] [place] [address] [place] Eosinophils (Bld) [#/Vol] 0.5 10*3/uL High 0.0-0.45 [facility] Comment on above: Performed By: #### U RMACRERAT, CBC, A1C WTH eA, LIPID, CMP #### [address] Eosinophils/100 WBC (Bld) 5.3 % Normal . [facility] Comment on above: Performed By: #### U RMACRERAT, CBC, A1C WTH eA, LIPID, CMP #### [address] Erythrocyte distribution width (RBC) [Ratio] 13.7 % Normal 12.0-14.8 [facility] Comment on above: Performed By: #### U RMACRERAT, CBC, A1C WTH eA, LIPID, CMP #### [address] Hematocrit (Bld) [Volume fraction] 44.8 % Normal 38.8-50.0 [facility] Comment on above: Performed By: #### U RMACRERAT, CBC, A1C WTH eA, LIPID, CMP #### [address] Hemoglobin (Bld) [Mass/Vol] 14.5 g/dL Normal 13.0-17.0 [facility] Comment on above: Performed By: #### U RMACRERAT, CBC, A1C WTH eA, LIPID, CMP #### [address] Lymphocytes (Bld) [#/Vol] 2.1 10*3/uL Normal 1.00-4.8 [facility] Comment on above: Performed By: #### U RMACRERAT, CBC, A1C WTH eA, LIPID, CMP #### [address] Lymphocytes/100 WBC (Bld) 21.4 % Normal . [facility] Comment on above: Performed By: #### U RMACRERAT, CBC, A1C WTH eA, LIPID, CMP #### [address] MCH (RBC) [Entitic mass] 27.5 pg Normal 27.5-35.2 [facility] Comment on above: Performed By: #### U RMACRERAT, CBC, A1C WTH eA, LIPID, CMP #### [facility] [address] MCV (RBC) [Entitic vol] 84.7 fL Normal 83.5-101 [facility] Comment on above: Performed By: #### U RMACRERAT, CBC, A1C WTH eA, LIPID, CMP #### [facility] [address] Mean Corpuscular HGB Conc 32.5 g/dL Normal 32.5-35.6 [facility] Comment on above: Performed By: #### U RMACRERAT, CBC, A1C WTH eA, LIPID, CMP #### [facility] [address] Monocytes (Bld) [#/Vol] 0.7 10*3/uL Normal 0.0-0.8 [facility] Comment on above: Performed By: #### U RMACRERAT, CBC, A1C WTH eA, LIPID, CMP #### [address] Monocytes/100 WBC (Bld) 7.2 % Normal . [facility] Comment on above: Performed By: #### U RMACRERAT, CBC, A1C WTH eA, LIPID, CMP #### [address] Neutrophils (Bld) [#/Vol] 6.4 10*3/uL Normal 1.8-7.7 [facility] Comment on above: Performed By: #### U RMACRERAT, CBC, A1C WTH eA, LIPID, CMP #### [place] [address] [place] Neutrophils/100 WBC (Bld) 65.4 % Normal . [facility] Comment on above: Performed By: #### U RMACRERAT, CBC, A1C WTH eA, LIPID, CMP #### [address] NRBC% 0.2 /100{WBC} Normal 0-0.5 [facility] Comment on above: Performed By: #### U RMACRERAT, CBC, A1C WTH eA, LIPID, CMP #### [facility] [address] Platelet mean volume (Bld) [Entitic vol] 10.2 fL High 6.6-10.1 [facility] Comment on above: Performed By: #### U RMACRERAT, CBC, A1C WTH eA, LIPID, CMP #### [facility] [address] Platelets (Bld) [#/Vol] 235 10*3/uL Normal 150-450 [facility] Comment on above: Performed By: #### U RMACRERAT, CBC, A1C WTH eA, LIPID, CMP #### [facility] [address] RBC (Bld) [#/Vol] 5.28 10*6/uL Normal 3.90-5.60 [facility] Comment on above: Performed By: #### U RMACRERAT, CBC, A1C WTH eA, LIPID, CMP #### [facility] [address] WBC (Bld) [#/Vol] 9.8 10*3/uL Normal 4.1-10.5 [facility] Comment on above: Performed By: #### U RMACRERAT, CBC, A1C WTH eA, LIPID, CMP #### [address] Comprehensive Metabolic Pane concha 10-29-2022 Albumin [Mass/Vol] 3.8 g/dL Normal 3.2-5.5 [facility] Comment on above: Performed By: #### U RMACRERAT, CBC, A1C WTH eA, LIPID, CMP #### [facility] [address] Albumin/Globulin [Mass ratio] 1.3 {ratio} Normal [facility] Comment on above: Performed By: #### U RMACRERAT, CBC, A1C WTH eA, LIPID, CMP #### [facility] [address] ALP [Catalytic activity/Vol] 73 U/L Normal 32-92 [facility] Comment on above: Performed By: #### U RMACRERAT, CBC, A1C WTH eA, LIPID, CMP #### [facility] [address] ALT [Catalytic activity/Vol] 42 U/L Normal 10-60 [facility] Comment on above: Performed By: #### U RMACRERAT, CBC, A1C WTH eA, LIPID, CMP #### [facility] [address] Anion gap [Moles/Vol] 14.2 mmol/L Normal 6.0-15.0 [facility] Comment on above: Performed By: #### U RMACRERAT, CBC, A1C WTH eA, LIPID, CMP #### [facility] [address] [place] [address] AST [Catalytic activity/Vol] 53 U/L High 10-42 [facility] Comment on above: Performed By: #### U RMACRERAT, CBC, A1C WTH eA, LIPID, CMP #### [facility] [address] [place] [address] Bilirubin [Mass/Vol] 0.6 mg/dL Normal 0.3-1.2 [facility] Comment on above: Performed By: #### U RMACRERAT, CBC, A1C WTH eA, LIPID, CMP #### [facility] [address] [place] [address] [place] Calcium [Mass/Vol] 9.2 mg/dL Normal 8.2-10.2 [facility] Comment on above: Performed By: #### U RMACRERAT, CBC, A1C WTH eA, LIPID, CMP #### [facility] [address] [place] [address] [place] Chloride [Moles/Vol] 99 mmol/L Normal 95-114 [facility] Comment on above: Performed By: #### U RMACRERAT, CBC, A1C WTH eA, LIPID, CMP #### [facility] [address] [place] [address] [place] CO2 [Moles/Vol] 27.4 mmol/L Normal 22.0-30.0 [facility] Comment on above: Performed By: #### U RMACRERAT, CBC, A1C WTH eA, LIPID, CMP #### [facility] [address] Creatinine [Mass/Vol] 1.00 mg/dL Normal 0.64-1.27 [facility] Comment on above: Performed By: #### U RMACRERAT, CBC, A1C WTH eA, LIPID, CMP #### [facility] [address] Estimated GFR ( Felipa > 60 [facility] Comment on above: Result Comment: GFR estimated reference range: According to KDOQI guidelines, <60 ml/min/1.73m2 is sufficient to diagnose a patient with chronic kidney disease. Performed By: #### U RMACRERAT, CBC, A1C WTH eA, LIPID, CMP #### [facility] [address] Estimated GFR (Non- Am > 60 [facility] Comment on above: Performed By: #### U RMACRERAT, CBC, A1C WTH eA, LIPID, CMP #### [facility] [address] Globulin (S) [Mass/Vol] 2.9 g/dL Normal [facility] Comment on above: Performed By: #### U RMACRERAT, CBC, A1C WTH eA, LIPID, CMP #### [facility] [address] Glucose [Mass/Vol] 145 mg/dL High 70-100 [facility] Comment on above: Result Comment: [place] Glucose Reference Range is dependent on time and content of last meal. Glucose of more than 200 mg/dL in a nonstressed, ambulatory subject supports the diagnosis of Diabetes Mellitus. ADA recommended reference range Performed By: #### U RMACRERAT, CBC, A1C WTH eA, LIPID, CMP #### [facility] [address] Potassium [Moles/Vol] 4.6 mmol/L Normal 3.5-5.1 [facility] Comment on above: Performed By: #### U RMACRERAT, CBC, A1C WTH eA, LIPID, CMP #### [facility] [address] [place] [address] [place] Protein [Mass/Vol] 6.7 g/dL Normal 6.1-7.9 [facility] Comment on above: Performed By: #### U RMACRERAT, CBC, A1C WTH eA, LIPID, CMP #### [facility] [address] [place] [address] [place] Sodium [Moles/Vol] 136 mmol/L Normal 136-146 [facility] Comment on above: Performed By: #### U RMACRERAT, CBC, A1C WTH eA, LIPID, CMP #### [facility] [address] [place] [address] [place] Urea nitrogen [Mass/Vol] 15 mg/dL Normal 9-23 [facility] Comment on above: Performed By: #### U RMACRERAT, CBC, A1C WTH eA, LIPID, CMP #### [facility] [address] [place] [address] [place] Creatinine [Mass/volume] in UrineOrdered By: Shaikh Dali on 10-29-2022 Creatinine (U) [Mass/Vol] 166.9 mg/dL [facility] Comment on above: No reference range e stablished Creatinine and Glomerular fi ltration rate.predicted panel (S/P/Bld)Ordered By: Shaikh Dali on 10-29-2022 Creatinine [Mass/Vol] 1.00 mg/dL 0.64-1.27 [facility] Eosinophils Auto (Bld) [#/Vo l]Ordered By: Shaikh Dali on 10-29-2022 Eosinophils (Bld) [#/Vol] 0.5 10*3/uL 0.0-0.45 [facility] Eosinophils/100 WBC Auto (Bl d)Ordered By: Shaikh Dali on 10-29-2022 Eosinophils/100 WBC (Bld) 5.3 % . [facility] Erythrocyte distribution wid th Auto (RBC) [Ratio]Ordered By: Shaikh Dali on 10-29-2022 Erythrocyte distribution width (RBC) [Ratio] 13.7 % 12.0-14.8 [facility] Estimated glomerular filtrat ion rate (GFR) non- AmericanOrdered By: Shaikh Dali on 10-29-2022 GFR/1.73 sq M.predicted among non-blacks MDRD (S/P/Bld) [Vol rate/Area] > 60 mL/Min [facility] Globulin Calc (S) [Mass/Vol] Ordered By: Shaikh Dali on 10-29-2022 Globulin (S) [Mass/Vol] 2.9 g/dL [facility] Glucose mean value [Mass/vol ume] in Blood Estimated from glycated hemoglobinOrdered By: Shaikh Dali on 10-29-2022 Average glucose Estimated from glycated hemoglobin (Bld) [Mass/Vol] 169 mg/dL [facility] Hematocrit Auto (Bld) [Volum e fraction]Ordered By: Shaikh Dali on 10-29-2022 Hematocrit (Bld) [Volume fraction] 44.8 % 38.8-50.0 [facility] Hemoglobin A1c percentageOrd ered By: Shaikh Dali on 10-29-2022 HbA1c (Bld) [Mass fraction] 7.5 % 4.3-5.6 [facility] Comment on above: Increased risk for d iabetes: 5.7 - 6.4diabetes: >6.4glycemic control for adults with diabetes: <7.0 Hemoglobin [Mass/volume] in BloodOrdered By: Shaikh Dali on 10-29-2022 Hemoglobin (Bld) [Mass/Vol] 14.5 g/dL 13.0-17.0 [facility] Leukocytes [#/volume] correc wiley for nucleated erythrocytes in Blood by Automated counOrdered By: Shaikh Dali on 10-29-2022 WBC corrected for nucl RBC Auto (Bld) [#/Vol] 9.8 10*3/uL 4.1-10.5 [facility] Lipid Panelon 10-29-2022 Cholesterol [Mass/Vol] 147 mg/dL Normal 140-200 [facility] Comment on above: Result Comment: Chol less than 200 mg/dl low risk Chol 201-239 mg/dl borderline risk Chol 240 mg/dl and greater high risk Performed By: #### U RMACRERAT, CBC, A1C WTH eA, LIPID, CMP #### [facility] [address] Cholesterol in HDL [Mass/Vol] 28 mg/dL Low 29-71 [facility] Comment on above: Result Comment: HDL CHOL ATP-III CLASSIFICATION Cardiovascular Risk HDL > or equal to 60 mg/dL LOW HDL < 40 mg/dL HIGH Performed By: #### U RMACRERAT, CBC, A1C WTH eA, LIPID, CMP #### [facility] [address] Cholesterol.total/Apple sterol in HDL [Mass ratio] 5.3 {ratio} Normal <5.0 [facility] Comment on above: Result Comment: PERF ORMED BY: [place] [address] PATHOLOGIST OPERATIONS SUPERINTENDENT WINTER RODRIGUEZ M.D. Performed By: #### U RMACRERAT, CBC, A1C WTH eA, LIPID, CMP #### [facility] [address] LDL Cholesterol,Calculated 62 mg/dL Normal 0-100 [facility] Comment on above: Result Comment: LDL ATP III CLASSIFICATION LDL less than 100 mg/dL Optimal LDL 100-129 mg/dL Near or above optimal LDL 130-159 mg/dL Borderline high LDL 160-189 mg/dL High LDL greater than 189 mg/dL Very high Performed By: #### U RMACRERAT, CBC, A1C WTH eA, LIPID, CMP #### [facility] [address] [place] [address] [place] Triglyceride w/Reflex 285 mg/dL High 35-149 [facility] Comment on above: Result Comment: TRIG ATP III CLASSIFICATION TRIG less than 150 mg/dL Normal TRIG 150-199 mg/dL Borderline high TRIG 200-500 mg/dL High TRIG greater than 500 mg/dL Very high Standard traceable to the Center for Disease Conrtrol and Prevention (CDC) test method. Performed By: #### U RMACRERAT, CBC, A1C WTH eA, LIPID, CMP #### [facility] [address] VLDL CHOLESTEROL 57 mg/dL Normal [facility] Comment on above: Performed By: #### U RMACRERAT, CBC, A1C WTH eA, LIPID, CMP #### [facility] [address] Lymphocytes Auto (Bld) [#/Vo l]Ordered By: Shaikh Dali on 10-29-2022 Lymphocytes (Bld) [#/Vol] 2.1 10*3/uL 1.00-4.8 [facility] Lymphocytes/100 WBC Auto (Bl d)Ordered By: Shaikh Dali on 10-29-2022 Lymphocytes/100 WBC (Bld) 21.4 % . [facility] MCH Auto (RBC) [Entitic mass ]Ordered By: Shaikh Dali on 10-29-2022 MCH (RBC) [Entitic mass] 27.5 pg 27.5-35.2 [facility] MCHC Auto (RBC) [Mass/Vol]Or dered By: Shaikh Dali on 10-29-2022 MCHC (RBC) [Mass/Vol] 32.5 g/dL 32.5-35.6 [facility] MCV Auto (RBC) [Entitic vol] Ordered By: Shaikh Dali on 10-29-2022 MCV (RBC) [Entitic vol] 84.7 fL 83.5-101 [facility] MicroAlb Creat Ratio,Uon Albumin DL <= 20 mg/L (U) [Mass/Vol] 18.7 mg/dL High 0.0-1.8 [facility] Comment on above: Performed By: #### U RMACRERAT, CBC, A1C WTH eA, LIPID, CMP #### [facility] [address] Creatinine, Urine (Random) 166.9 mg/dL Normal [facility] Comment on above: Result Comment: No r eference range established Performed By: #### U RMACRERAT, CBC, A1C WTH eA, LIPID, CMP #### [facility] [address] Microalbumin/Creatinine Ratio 112.0 mg/g High 0.0-30.0 [facility] Comment on above: Result Comment: 30-3 00 mg/g indicates an increased risk for diabetic nephropathy. Greater than 300 mg/g is consistent with clinical nephropathy. (Am. J. Kidney Disease 1995, 25:107) PERFORMED BY: [facility] [address] [facility] [place] [address] PATHOLOGIST OPERATIONS SUPERINTENDENT WINTER RODRIGUEZ M.D. Performed By: #### U RMACRERAT, CBC, A1C WTH eA, LIPID, CMP #### [facility] [address] [place] [id number] [facility] Monocytes Auto (Bld) [#/Vol] Ordered By: Shaikh Dali on 10-29-2022 Monocytes (Bld) [#/Vol] 0.7 10*3/uL 0.0-0.8 [facility] Monocytes/100 WBC Auto (Bld) Ordered By: Shaikh Dali on 10-29-2022 Monocytes/100 WBC (Bld) 7.2 % . [facility] Neutrophils Auto (Bld) [#/Vo l]Ordered By: Shaikh Dali on 10-29-2022 Neutrophils (Bld) [#/Vol] 6.4 10*3/uL 1.8-7.7 [facility] Neutrophils/100 WBC Auto (Bl d)Ordered By: Shaikh Dali on 10-29-2022 Neutrophils/100 WBC (Bld) 65.4 % . [facility] No Panel InformationOrdered By: Shaikh Dali on 10-29-2022 Estimated GFR () > 60 mL/Min [facility] Comment on above: GFR estimated refere nce range: According to KDOQI guidelines, <60 ml/min/1.73m2 is sufficient to diagnose a patient with chronic kidney disease. Pharmacy Creatinine Clearance (Chem N/A [facility] Nucleated erythrocytes [Pres ence] in Blood by Automated countOrdered By: Shaikh Dali on 10-29-2022 Nucleated RBC Auto Ql (Bld) 0.2 /100{WBC} 0-0.5 [facility] Platelet mean volume Auto (B ld) [Entitic vol]Ordered By: Shaikh Dali on 10-29-2022 Platelet mean volume (Bld) [Entitic vol] 10.2 fL 6.6-10.1 [facility] Platelets Auto (Bld) [#/Vol] Ordered By: Shaikh Dali on 10-29-2022 Platelets (Bld) [#/Vol] 235 10*3/uL 150-450 [facility] Protein [Mass/volume] in Ser um or PlasmaOrdered By: Shaikh Dali on 10-29-2022 Protein [Mass/Vol] 6.7 g/dL 6.1-7.9 [facility] RBC Auto (Bld) [#/Vol]Ordere d By: Shaikh Dali on 10-29-2022 RBC (Bld) [#/Vol] 5.28 10*6/uL 3.90-5.60 [facility] Serum or plasma alanine azevedo otransferase measurement without P-5'-P (enzymatic activiOrdered By: Shaikh Dali on 10-29-2022 ALT No additional P-5'-P [Catalytic activity/Vol] 42 U/L 10-60 [facility] Serum or plasma albumin/glob ulin mass ratioOrdered By: Shaikh Dali on 10-29-2022 Albumin/Globulin [Mass ratio] 1.3 {ratio} [facility] Serum or plasma alkaline julia sphatase measurement (enzymatic activity/volume)Ordered By: Shaikh Dali on 10-29-2022 ALP [Catalytic activity/Vol] 73 U/L 32-92 [facility] Serum or plasma anion gap de terminationOrdered By: Shaikh Dali on 10-29-2022 Anion gap [Moles/Vol] 14.2 mmol/L 6.0-15.0 [facility] Serum or plasma aspartate am inotransferase measurement (enzymatic activity/volume)Ordered By: Shaikh Dali on 10-29-2022 AST [Catalytic activity/Vol] 53 U/L 10-42 [facility] Serum or plasma calcium david urement (mass/volume)Ordered By: Shaikh Dali on 10-29-2022 Calcium [Mass/Vol] 9.2 mg/dL 8.2-10.2 [facility] Serum or plasma chloride traci surement (moles/volume)Ordered By: Shaikh Dali on 10-29-2022 Chloride [Moles/Vol] 99 mmol/L 95-114 [facility] Serum or plasma glucose david urement (mass/volume)Ordered By: Shaikh Dali on 10-29-2022 Glucose [Mass/Vol] 145 mg/dL 70-100 [facility] Comment on above: ADA recommended refe rence rangeRandom Glucose Reference Range is dependent on time and content of last meal. Glucose of more than 200 mg/dL in a nonstressed, ambulatory subject supports the diagnosis of Diabetes Mellitus. Serum or plasma high density lipoprotein (HDL) cholesterol measurementOrdered By: Shaikh Dali on 10-29-2022 Cholesterol in HDL [Mass/Vol] 28 mg/dL 29-71 [facility] Comment on above: HDL CHOL ATP-III CLA SSIFICATION Cardiovascular RiskHDL > or equal to 60 mg/dL LOWHDL < 40 mg/dL HIGH Serum or plasma potassium me asurement (moles/volume)Ordered By: Shaikh Dali on 10-29-2022 Potassium [Moles/Vol] 4.6 mmol/L 3.5-5.1 [facility] Serum or plasma sodium measu rement (moles/volume)Ordered By: Shaikh Dali on 10-29-2022 Sodium [Moles/Vol] 136 mmol/L 136-146 [facility] Serum or plasma total biliru bin measurement (mass/volume)Ordered By: Shaikh Dali on 10-29-2022 Bilirubin [Mass/Vol] 0.6 mg/dL 0.3-1.2 [facility] Serum or plasma total carbon dioxide measurement (moles/volume)Ordered By: Shaikh Dali on 10-29-2022 CO2 [Moles/Vol] 27.4 mmol/L 22.0-30.0 [facility] Serum or plasma total choles terol/high density lipoprotein (HDL) cholesterol mass ratOrdered By: Shaikh Dali on 10-29-2022 Cholesterol.total/Apple sterol in HDL [Mass ratio] 5.3 {ratio} <5.0 [facility] Serum or plasma urea nitroge n measurement (mass/volume)Ordered By: Shaikh Dali on 10-29-2022 Urea nitrogen [Mass/Vol] 15 mg/dL 9- [facility] Triglyceride [Mass/volume] i n Serum or PlasmaOrdered By: Shaikh Dali on 10-29-2022 Triglyceride [Mass/Vol] 285 mg/dL 35-149 [facility] Comment on above: TRIG ATP III [...] 20 mg/L (U) [Mass/Vol] 18.7 mg/dL 0.0-1.8 [facility] Urine microalbumin/creatinin e mass ratioOrdered By: Shaikh Dali on 10-29-2022 Albumin/Creatinine DL <= 20 mg/L (U) [Mass ratio] 112.0 mg/g 0.0-30.0 [facility] Comment on above: 30-300 mg/g indicate s an increased risk for diabetic nephropathy. Greater than 300 mg/g is consistent with clinical nephropathy. (Am. J. Kidney Disease 1995, 25:107) WBC Auto (Bld) [#/Vol]Ordere d By: Shaikh Dali on 10-29-2022 WBC (Bld) [#/Vol] 9.8 10*3/uL 4.1-10.5 [facility] CARDIAC SARAH ADMITon 022 CK [Catalytic activity/Vol] 100 U/L Normal 39-308 [facility] Comment on above: Performed By: #### C MADM, CMP #### [facility] [address] [place] [address] [address] Tracy Gutierrez CK.MB [Mass/Vol] 1.18 ng/mL Normal <=3.60 [facility] Comment on above: Performed By: #### C MADM, CMP #### [facility] [address] [place] [address] [address] Tracy Gutierrez HSTROP 11.3 pg/mL Normal 4.0-76.1 [facility] Comment on above: Result Comment: CUT- OFF POINTS HAVE BEEN ESTABLISHED BASED ON THE FOURTH UNIVERSAL DEFINITIONS OF MYOCARDIAL INFARCTION. THE UPPER REFERENCE LIMIT (URL) OF TROPONIN, DEFINED THE 99TH PERCENTILE OF cTnI DISTRIBUTION IN A REFERENCE POPULATION, HAS BEEN CONFIRMED THE DECISION THRESHOLD FOR [place] DIAGNOSIS. Performed By: #### C MADM, CMP #### [facility] [address] [place] [address] [address] Tracy Gutierrez ERIN 60 ng/mL Normal 16-96 [facility] Comment on above: Performed By: #### C MADM, CMP #### [facility] [address] [place] [address] [address] Tracy Gutierrez CBC AUTO DIFFon 05-02-2022 BASO # 0.1 103/ul Normal 0.0-0.1 [facility] Comment on above: Performed By: #### C BC #### [facility] [address] [address] [address] Tracy Gutierrez Basophils/100 WBC (Bld) 0.6 % Normal 0.2-2.0 [facility] Comment on above: Performed By: #### C BC #### [facility] [address] [place] [address] [address] Tracy Gutierrez EO # 0.4 103/ul Normal 0.0-0.7 [facility] Comment on above: Performed By: #### C BC #### [facility] [address] [place] [address] Dr. Tracy Gutierrez Eosinophils/100 WBC (Bld) 4.1 % Normal 0.9-7.0 [facility] Comment on above: Performed By: #### C BC #### [facility] [address] [place] [address] Dr. Tracy Gutierrez Erythrocyte distribution width (RBC) [Ratio] 12.7 % Normal 11.0-15.0 [facility] Comment on above: Performed By: #### C BC #### [facility] [address] [place] [address] Dr. Tracy Gutierrez Hematocrit (Bld) [Volume fraction] 44.9 % Normal 42.0-54.0 [facility] Comment on above: Performed By: #### C BC #### [facility] [address] [place] [address] Dr. Tracy Gutierrez Hemoglobin (Bld) [Mass/Vol] 14.5 g/dL Normal 14.0-18.0 [facility] Comment on above: Performed By: #### C BC #### [facility] [address] [place] [address] Dr. Tracy Gutierrez IG # 0.04 10e3/ul Critically high 0.00-0.[address] [facility] Comment on above: Performed By: #### C BC #### [facility] [address] [place] [address] Dr. Tracy Gutierrez IG % 0.4 % Normal 0.0-0.5 [facility] Comment on above: Performed By: #### C BC #### [facility] [address] [place] [address] Dr. Tracy Gutierrez LYMPH # 2.1 103/ul Normal 1.2-3.8 [facility] Comment on above: Performed By: #### C BC #### [facility] [address] [place] [address] Dr. Tracy Gutierrez Lymphocytes/100 WBC (Bld) 20.8 % Normal 20.5-60.0 [facility] Comment on above: Performed By: #### C BC #### [facility] [address] [place] [address] Dr. Tracy Gutierrez MANUAL DIFF REQ NO Normal [facility] Comment on above: Performed By: #### C BC #### [facility] [address] [place] [address] Dr. Tracy Gutierrez MCH (RBC) [Entitic mass] 27.9 pg Normal 25.9-34.0 [facility] Comment on above: Performed By: #### C BC #### [facility] [address] [place] [address] Dr. Tracy Gutierrez MCHC (RBC) [Mass/Vol] 32.3 g/dL Normal 29.9-35.2 [facility] Comment on above: Performed By: #### C BC #### [facility] [address] [place] [address] Dr. Tracy Gutierrez MCV (RBC) [Entitic vol] 86.3 fL Normal 80.0-94.0 [facility] Comment on above: Performed By: #### C BC #### [facility] [address] [place] [address] Dr. Tracy Gutierrez MONO # 0.7 103/ul Normal 0.3-0.8 [facility] Comment on above: Performed By: #### C BC #### [facility] [address] [place] [address] Dr. Tracy Gutierrez Monocytes/100 WBC (Bld) 7.2 % Normal 1.7-12.0 [facility] Comment on above: Performed By: #### C BC #### [facility] [address] [place] [address] Dr. Tracy Gutierrez NEUT # 6.9 103/ul Critically high 1.4-6.5 [facility] Comment on above: Performed By: #### C BC #### [facility] [address] [place] [address] Dr. Tracy Gutierrez Neutrophils/100 WBC (Bld) 66.9 % Normal 43.0-75.0 [facility] Comment on above: Performed By: #### C BC #### [facility] [address] [place] [address] Dr. Tracy Gutierrez Platelet mean volume (Bld) [Entitic vol] 11.1 fL Normal 9.5-13.5 [facility] Comment on above: Performed By: #### C BC #### [facility] [address] [place] [address] Dr. Tracy Gutierrez PLT 237 103/ul Normal 150-450 [facility] Comment on above: Performed By: #### C BC #### [facility] [address] [place] [address] Dr. Tracy Gutierrez RBC 5.20 106/ul Normal 4.70-6.10 [facility] Comment on above: Performed By: #### C BC #### [facility] [address] [place] [address] Dr. Tracy Gutierrez WBC 10.3 103/ul Normal 4.0-11.0 [facility] Comment on above: Performed By: #### C BC #### [facility] [address] [place] [address] Dr. Tracy Gutierrez PROF 14(COMP METB)on 022 Albumin [Mass/Vol] 3.7 g/dL Normal 3.4-5.0 [facility] Comment on above: Performed By: #### C PENNY, CMP #### [facility] [address] [place] [address] Dr. Tracy Gutierrez Albumin/Globulin [Mass ratio] 0.9 {ratio} Normal [facility] Comment on above: Performed By: #### C MADM, CMP #### [facility] [address] [place] [address] Dr. Tracy Gutierrez ALP [Catalytic activity/Vol] 77 U/L Normal 46-116 [facility] Comment on above: Performed By: #### C RICKIEM, CMP #### [facility] [address] [place] [address] Dr. Tracy Gutierrez ALT [Catalytic activity/Vol] 46 U/L Normal 16-63 [facility] Comment on above: Performed By: #### C RICKIEM, CMP #### [facility] [address] [place] [address] [address] Tracy Gutierrez Anion gap [Moles/Vol] 10.7 mmol/L Normal [facility] Comment on above: Performed By: #### C RICKIEM, CMP #### [facility] [address] [place] [address] [address] Tracy Gutierrez AST [Catalytic activity/Vol] 40 U/L Critically high 15-37 [facility] Comment on above: Performed By: #### C RICKIEM, CMP #### [facility] [address] [address] [address] Tracy Gutierrez Bilirubin [Mass/Vol] 0.5 mg/dL Normal 0.2-1.0 [facility] Comment on above: Performed By: #### C RICKIEM, CMP #### [facility] [address] [place] [address] Dr. Tracy Gutierrez Calcium [Mass/Vol] 9.4 mg/dL Normal 8.5-10.1 [facility] Comment on above: Performed By: #### C PENNY, CMP #### [facility] [address] [address] [address] Tracy Gutierrez Chloride [Moles/Vol] 102 mmol/L Normal 98-107 [facility] Comment on above: Performed By: #### C PENNY, CMP #### [facility] [address] [place] [address] Dr. Tracy Gutierrez CO2 [Moles/Vol] 29.6 mmol/L Normal 21.0-32.0 [facility] Comment on above: Performed By: #### C RICKIEM, CMP #### [facility] [address] [address] [address] Tracy Gutierrez Creatinine [Mass/Vol] 1.14 mg/dL Normal 0.70-1.30 [facility] Comment on above: Performed By: #### C RICKIEM, CMP #### [facility] [address] [address] [address] Tracy Gutierrez EGFR-AF BAHRAINI >60 Normal >=60 [facility] Comment on above: Performed By: #### C RICKIEM, CMP #### [facility] [address] [address] [address] Tracy Gutierrez EGFR-NON AF BAHRAINI >60 Normal >=60 [facility] Comment on above: Performed By: #### C MADM, CMP #### [facility] [address] [address] [address] Tracy Gutierrez Globulin (S) [Mass/Vol] 4.1 g/dL Normal [facility] Comment on above: Performed By: #### C MADM, CMP #### [facility] [address] [address] [address] Tracy Gutierrez Glucose [Mass/Vol] 203 mg/dL Critically high 74-106 [facility] Comment on above: Performed By: #### C RICKIEM, CMP #### [facility] [address] [place] [address] Dr. Tracy Gutierrez Potassium [Moles/Vol] 4.3 mmol/L Normal 3.5-5.1 [facility] Comment on above: Performed By: #### C RICKIEM, CMP #### [facility] [address] [place] [address] Dr. Tracy Gutierrez Protein [Mass/Vol] 7.8 g/dL Normal 6.4-8.2 [facility] Comment on above: Performed By: #### C RICKIEM, CMP #### [facility] [address] [place] [address] Dr. Tracy Gutierrez Sodium [Moles/Vol] 138 mmol/L Normal 136-145 [facility] Comment on above: Performed By: #### C RICKIEM, CMP #### [facility] [address] [place] [address] Dr. Tracy Gutierrez Urea nitrogen [Mass/Vol] 16.0 mg/dL Normal 7.0-18.0 [facility] Comment on above: Performed By: #### C MADM, CMP #### [facility] [address] [place] [address] Dr. Tracy Gutierrez Urea nitrogen/Creatinine [Mass ratio] 14.0 mg/mg Normal [facility] Comment on above: Performed By: #### Ricardo FRNACIS CMP #### [facility] [address] [place], [place] [address] Dr. Tracy Gutierrez XR CHEST 1 Von [...] by: NIKUNJ PINO Date: 2022-05-02 16:53 Normal [facility] Comp Metabolic Profon 2020 (cont.) Normal [facility] Comment on above: Result Comment: Aver age GFR for 70 or more years old: 75 mL/min/1.73sq m Chronic Kidney Disease: <60 mL/min/1.73sq m Kidney failure: <15 mL/min/1.73sq m eGFR calculated using average adult body mass. Additional eGFR calculator available at: http://www.[employer]/multiple_crcl_2012.htm Performed By: #### Randall FAST, CP #### [facility] [address] [place] [address] [employer]er: Abisai Tellez MD #### LIPR #### [id number] [place], [place] [id number] [employer]er: Shaheed Alcocer MD Albumin [Mass/Vol] 4.1 g/dL Normal 3.5-5.2 [facility] Comment on above: Performed By: #### Randall FAST, CP #### [facility] [address] [place], [place] [id number] [employer]: Abisai Tellez MD #### LIPR #### [facility] [employer] [address] [place] [address] [employer]er: Shaheed Alcocer MD Alkaline Phos 78 U/L Normal 40-129 [facility] Comment on above: Performed By: #### Randall FAST, CP #### [facility] [address] [place] [address] [employer]er: Abisai Tellez MD #### LIPR #### [facility] [address] [place] [address] [employer]er: Shaheed Alcocer MD ALT [Catalytic activity/Vol] 34 U/L Normal 5-41 [facility] Comment on above: Performed By: #### Randall HERRERA, CP #### [facility] [address] [place] [address] [employer]er: Abisai Tellez MD #### LIPR #### [address] [address] [employer]er: Shaheed Alcocer MD Anion gap [Moles/Vol] 12 mmol/L Normal 9-17 [facility] Comment on above: Performed By: #### Randall HERRERA, CP #### [facility] [address] [place] [address] [employer]er: Abisai Tellez MD #### LIPR #### [address] [address] [employer]er: Shaheed Alcocer MD AST [Catalytic activity/Vol] 28 U/L Normal <40 [facility] Comment on above: Performed By: #### Randall FAST, CP #### [facility] [address] [place] [address] [employer]er: Abisai Tellez MD #### LIPR #### [facility] [address] [place] [address] [employer]er: Shaheed Alcocer MD Bilirubin [Mass/Vol] 0.31 mg/dL Normal 0.30-1.20 [facility] Comment on above: Performed By: #### Randall FAST, CP #### [facility] [address] [place] [address] [employer]er: Abisai Tellez MD #### LIPR #### [facility] [address] [place] [address] [employer]er: Shaheed Alcocer MD BUN/CRE Ratio 23 High 9-20 [facility] Comment on above: Performed By: #### Randall FAST, CP #### [facility] [address] [place] [address] [employer]er: Abisai Tellez MD #### LIPR #### [address] [address] [employer]er: Shaheed Alcocer MD Calcium [Mass/Vol] 8.9 mg/dL Normal 8.6-10.4 [facility] Comment on above: Performed By: #### Randall FAST, CP #### [facility] [address] [place] [address] [employer]er: Abisai Tellez MD #### LIPR #### [facility] [address] [place] [address] [employer]er: Shaheed Alcocer MD Chloride [Moles/Vol] 96 mmol/L Low 98-107 [facility] Comment on above: Performed By: #### Randall FAST, CP #### [facility] [address] [place] [address] [employer]er: Abisai Tellez MD #### LIPR #### [facility] [address] [place] [address] [employer]er: Shaheed Alcocer MD CO2 [Moles/Vol] 25 mmol/L Normal 20-31 [facility] Comment on above: Performed By: #### Randall FAST, CP #### [facility] [address] [place], [place] [id number] [employer]er: Abisai Tellez MD #### LIPR #### [address] [id number] [employer]er: Shaheed Alcocer MD Creatinine [Mass/Vol] 0.96 mg/dL Normal 0.70-1.20 [facility] Comment on above: Performed By: #### Z FAST, CP #### [facility] [address] [place], [place] [id number] [employer] Installer: Abisai Tellez MD #### LIPR #### [address] [id number] [employer] Installer: Shaheed Alcocer MD GFR, Amer >60 Normal >60 [facility] Comment on above: Performed By: #### Randall FAST, CP #### [facility] [address] [place], [place] [phone] [employer] Installer: Abisai Tellez MD #### LIPR #### [address] [id number] [employer] Installer: Shaheed Alcocer MD GFR,non Amer >60 Normal >60 [facility] Comment on above: Performed By: #### Z FAST, CP #### [facility] [address] [place], [place] [phone] [employer] Installer: Abisai Tellez MD #### LIPR #### [address] [address] [employer] Installer: Shaheed Alcocer MD Glucose [Mass/Vol] 157 mg/dL High 70-99 [facility] Comment on above: Performed By: #### Z FAST, CP #### [facility] [address] [place], [place] [id number] [employer] Installer: Abisai Tellez MD #### LIPR #### [address] [place] [address] [employer] Installer: Shaheed Alcocer MD Potassium [Moles/Vol] 4.7 mmol/L Normal 3.7-5.3 [facility] Comment on above: Performed By: #### Z FAST, CP #### [facility] [address] [place] [address] [employer] Installer: Abisai Tellez MD #### LIPR #### [facility] [address] [place] [address] [employer] Installer: Shaheed Alcocer MD Protein [Mass/Vol] 7.4 g/dL Normal 6.4-8.3 [facility] Comment on above: Performed By: #### Randall FAST, CP #### [facility] [address] [place], [place] 1798290 [employer] Installer: Abisai Tellez MD #### LIPR #### [address] [address] [employer] Installer: Shaheed Alcocer MD Sodium [Moles/Vol] 133 mmol/L Low 135-144 [facility] Comment on above: Performed By: #### Randall FAST, CP #### [facility] [address] [place] [address] [employer] Installer: Abisai Tellez MD #### LIPR #### [address] [address] [employer] Installer: Shaheed Alcocer MD Urea nitrogen [Mass/Vol] 22 mg/dL Normal 8-23 [facility] Comment on above: Performed By: #### Randall FAST, CP #### [facility] [address] [place] [address] [employer] Installer: Abisai Tellez MD #### LIPR #### [facility] [address] [place] [address] [employer] Installer: Shaheed Alcocer MD Albumin/Glob Ratio NOT REPORTED Normal 1.0-2.5 [facility] Comment on above: Performed By: #### Randall FAST, CP #### [facility] [address] [place], [place] [phone] [employer] Installer: Abisai Tellez MD #### LIPR #### [address] [phone] [employer] Installer: Shaheed Alcocer MD Staging: NOT REPORTED Normal [facility] Comment on above: Performed By: #### Randall FAST, CP #### [facility] [address] [place], [place] [phone] [employer] Installer: Abisai Tellez MD #### LIPR #### [address] [id number] [employer] Installer: Shaheed Alcocer MD Lipid Profileon 09-19-2021 Cholesterol [Mass/Vol] 135 mg/dL Normal <200 [facility] Comment on above: Result Comment: Cholesterol Guidelines: <200 Desirable 200-240 Borderline >240 Undesirable Performed By: #### Randall FAST, CP #### [facility] [address] [place], [place] 8455290 [employer] Installer: Abisai Tellez MD #### LIPR #### [address] [phone] [employer] Installer: Shaheed Alcocer MD Cholesterol in HDL [Mass/Vol] 30 mg/dL Low >40 [facility] Comment on above: Result Comment: HDL Guidelines: <40 Undesirable 40-59 Borderline >59 Desirable Performed By: #### Randall FAST, CP #### [facility] [address] [place], [place] [phone] [employer] Installer: Abisai Tellez MD #### LIPR #### [address] [phone] [employer] Installer: Shaheed Alcocer MD Cholesterol in LDL [Mass/Vol] 80 mg/dL Normal 0-130 [facility] Comment on above: Result Comment: LDL Guidelines: <100 Desirable 100-129 Near to/above Desirable 130-159 Borderline >159 Undesirable Direct (measured) LDL and calculated LDL are not interchangeable tests. Performed By: #### Z FAST, CP #### [facility] [address] [place], [place] 0287690 [employer] Installer: Abisai Tellez MD #### LIPR #### [facility] [address] [place], [place] 8137908 [employer] Installer: Shaheed Alcocer MD Cholesterol.total/Apple sterol in HDL [Mass ratio] 4.5 {ratio} Normal <5 [facility] Comment on above: Performed By: #### Randall FAST, CP #### [facility] [address] [place], [place] 5889690 [employer] Installer: Abisai Tellez MD #### LIPR #### [facility] [address] [place], [place] 3769108 [employer] Installer: Shaheed Alcocer MD Triglyceride [Mass/Vol] 126 mg/dL Normal <150 [facility] Comment on above: Result Comment: Triglyceride Guidelines: <150 Desirable 150-199 Borderline 200-499 High >499 Very high Based on AHA Guidelines for fasting triglyceride, July 2012. Performed By: #### Randall FAST, CP #### [facility] [address] [place], [place] 1023490 [employer] Installer: Abisai Tellez MD #### LIPR #### [facility] [employer] [address] [place] [address] [employer] Installer: Shaheed Alcocer MD Cholesterol,VLDL NOT REPORTED Normal 11-04 [facility] Comment on above: Performed By: #### Z FAST, CP #### [facility] [address] [place], [place] [id number] [employer] Installer: Abisai Tellez MD #### LIPR #### [facility] [address] [place], [place] 9303008 [employer] Installer: Shaheed Alcocer MD Patient fasting?on 1 Patient fasting? YES Normal [facility] Comment on above: Performed By: #### Z FAST, CP #### [facility] [address] [place], [place] 4819[address] [employer] Installer: Abisai Tellez MD #### LIPR #### [facility] [address] [place], [place] 6055308 [employer] Installer: Shaheed Alcocer MD COVID Quick Testingon 2020 Result Negative [employer] Other Quick Fluon 09-16-2021 FLUAV Ab CF (S) [Titer] Negative N [employer] Other FLUBV Ab CF (S) [Titer] Negative [employer] [facility] [employer] Other [id number] 07-20-2021 SARS-CoV-2 (COVID-19) RNA GARRY+probe Ql (Unsp spec) Normal [facility] Comment on above: Performed By: #### C OVID #### [address] [address] [employer] Installer: Shaheed Alcocer MD [facility] [address] [place] [address] [employer] Installer: Abisai Tellez MD SARS-CoV-2 (COVID-19) RNA GARRY+probe Ql (Unsp spec) Not detected Normal [facility] Comment on above: Result Comment: The specimen is NEGATIVE for SARS-CoV-2, the novel coronavirus associated with COVID-19. A negative result does not rule out COVID-19. Carole SARS-CoV-2 for use on the Carole [employer]/8800 [employer] is a real-time RT-PCR test intended [...] this assay. Fact sheet for Healthcare Providers: https://www.fda.gov/media/432901/download Fact sheet for Patients: https://www.fda.gov/media/681186/download METHODOLOGY: RT-PCR Performed By: #### C OVID #### [address] [place], [place] 8046108 [employer] Installer: Shaheed Alcocer MD [facility] [address] [place] [address] [place] [address] [employer] Installer: Abisai Tellez MD [id number] 07-19-2021 SARS-CoV-2 (COVID-19) RNA GARRY+probe Ql (Unsp spec) .NASOPHARYNGEAL SWAB Normal [facility] Comment on above: Performed By: #### C OVID #### [address] [place], [place] 8076008 [employer] Installer: Shaheed Alcocer MD [address] [place] [address] [employer] Installer: Abisai Tellez MD US SCREENING FOR AAAon [...] Wesley Aquino MD 08/02/20 Final result Normal [facility] VL DUP CAROTID BILATERALon 0 12-10-2019 [facility] Vascular Carotid Procedure Patient Name BRANT Date of Study 12/08/2019 SHARON Rinaldi Date of 1950 Gender Male Age 69 year(s) Race Room Number Corporate ID [id number] # Patient Acct [id number] # MR # [id number] Bone Grinder ELENI Fenton Interpreting Physician Diego Luis MD Referring Referring Physician Castillo Clark Nurse Practitioner Procedure Type of Study: Cerebral: Carotid, Carotid Scan Bilateral. Patient Status:Out Patient. Comments:INDICATIONS: 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) ([facility]) I83.9, R.29.810 Basic Classification [...] side. - Additional Measurements:ICAPSV/C CAPSV 1.47.ICAEDV/CCAEDV 2.54. [facility] [place], [place], pn Incoming Cardio Results From Cpacs/ShowKit - 12/10/2019 1:16 PM EST [facility] Vascular Carotid Procedure Patient Name BRANT Date of Study 12/08/2019 SHARON Rinaldi Date of 1950 Gender Male Age 69 year(s) Race Room Number Corporate ID [id number] # Patient Acct [id number] # MR # [id number] Bone Grinder ELENI Fenton Interpreting Physician Diego Luis MD Referring Referring Physician Castillo Clark Nurse Practitioner Procedure Type of Study: Cerebral: Carotid, Carotid Scan Bilateral. Patient Status:Out Patient. Comments:INDICATIONS: 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) ([facility]) I83.9, R.29.810 Basic Classification [...] side. - Additional Measurements:ICAPSV/C CAPSV 1.47.ICAEDV/CCAEDV 2.54. [place], [place] CT HEAD WO CONTRASTon 2019 No acute intracrania l abnormality. [place], [place] EXAMINATION: CT OF THE HEAD WITHOUT [...] droop due to acute cerebrovascular accident (CVA) ([facility]) TECHNOLOGIST PROVIDED HISTORY: Left [...] of the visualized skull or soft tissues. [place], [place], Mhpn Incoming Radiant Results From Haversack/Verixs - 12/08/2019 4:41 PM EST EXAMINATION: CT [...] droop due to acute cerebrovascular accident (CVA) ([facility]) TECHNOLOGIST PROVIDED HISTORY: Left [...] soft tissues. IMPRESSION: No acute intracranial abnormality. [place], [place] Glucose, Whole Bloodon 05-31 Glucose [Mass/Vol] 113 mg/dL High 65 - 99 mg/dL [place], [place] Interpretation and review of laboratory results Abnormal [place], [place] Progress Noteon 04-13-2018 HIM IP Note OR Lance Crewmember Normal [facility] Progress Noteon 01-01-2018 HIM IP Note OR Lance Crewmember Normal [facility] HIM IP Note OR Lance Crewmember Normal [facility] CBCon 08-03-2017 Erythrocyte distribution width Auto Ratio (RBC) 13.9 % Normal 12.5-15.4 [facility] Comment on above: Performed By: #### C BC ####[address] [address] Erythrocytes (RBC) 5.09 10*6/uL Normal 4.5-5.[address] [facility] Comment on above: Performed By: #### C BC ####[address] [address] Hematocrit (HCT) 44.0 % Normal 41-53 [facility] Comment on above: Performed By: #### C BC ####[address] [address] Hemoglobin mass conc (Bld) 14.2 g/dL Normal 13.5-17.5 [facility] Comment on above: Performed By: #### C BC ####[address] [place] [address] MCH 27.9 pg Normal 26-34 [facility] Comment on above: Performed By: #### C BC ####[address] [place] [address] MCHC mass conc (RBC) 32.3 g/dL Normal 31-[address] [facility] Comment on above: Performed By: #### C BC ####[address] [address] MCV 86.3 fL Normal 80-100 [facility] Comment on above: Performed By: #### C BC ####[address] [address] Platelet mean volume (PMV) 9.2 fL Normal 6.0-12.0 [facility] Comment on above: Result Comment: [address] [address] Performed By: #### C BC ####[address] [address] Platelets 170 10*3/uL Normal 140-450 [facility] Comment on above: Performed By: #### C BC ####[address] [address] WBC (Leukocytes) 9.4 10*3/uL Normal 3.5-11.0 [facility] Comment on above: Performed By: #### C BC ####[address] [address] Comp Metabolic Profon 2016 Aspartate aminotransferase (AST) 31 U/L Normal <40 [facility] Comment on above: Performed By: #### L IPR, CP ####[address] [address] (cont.) Normal [facility] Comment on above: Result Comment: Aver age GFR for 60-69 years old: 85 mL/min/1.73sq mChronic Kidney Disease: <60 mL/min/1.73sq mKidney failure: <15 mL/min/1.73sq meGFR calculated using average adult body mass. Additional eGFR calculator available at:http://www.Estech.Clearwire/multiple_crcl_2011.htm[address] [place] [address] Performed By: #### L IPR, CP ####[address] [address] Alanine aminotransferase (ALT) 34 U/L Normal 5-41 [facility] Comment on above: Performed By: #### L IPR, CP ####[address] [address] Albumin 3.5 g/dL Normal 3.5-5.2 [facility] Comment on above: Performed By: #### L IPR, CP ####[address] [address] Albumin/Globulin Ratio 1.0 {ratio} Normal 1.0-2.5 [facility] Comment on above: Performed By: #### L IPR, CP ####[address] [address] Alkaline Phos 82 U/L Normal 40-129 [facility] Comment on above: Performed By: #### L IPR, CP ####[address] [address] Anion gap 12 mmol/L Normal 9-17 [facility] Comment on above: Performed By: #### L IPR, CP ####[address] [address] Bilirubin Ql (U) 0.57 mg/dL Normal 0.3-1.2 [facility] Comment on above: Performed By: #### L IPR, CP ####[address] [address] Calcium 9.0 mg/dL Normal 8.6-10.4 [facility] Comment on above: Performed By: #### L IPR, CP ####[address] [address] Chloride 100 mmol/L Normal 98-107 [facility] Comment on above: Performed By: #### L IPR, CP ####[facility] [address]kyq[address] [place] [address] CO2 28 mmol/L Normal 20-31 [facility] Comment on above: Performed By: #### L IPR, CP ####[facility] Rehabilitation[facility] [address] [place] [address] Creatinine 0.95 mg/dL Normal 0.70-1.20 [facility] Comment on above: Performed By: #### L IPR, CP ####[facility] [address] [place] [address] GFR, Amer >60 Normal >60 [facility] Comment on above: Performed By: #### L IPR, CP ####[facility] RehabilitationVastechLwlxtufksyvt[address] [place] [address] GFR,non Amer >60 Normal >[address] [facility] Comment on above: Performed By: #### L IPR, CP ####[facility] RehabilitationVastechHmdyrdzbtrmn3851 [place] [address] Glucose mass conc 125 mg/dL High 70-99 [facility] Comment on above: Performed By: #### L IPR, CP ####[facility] RehabilitationVastechVqndczrlfiug7466 [place] [address] Potassium molar conc 4.7 mmol/L Normal 3.7-5.[address] [facility] Comment on above: Performed By: #### L IPR, CP ####[facility] RehabilitationVastechVktnnjayavad8352 [place] [address] Protein 6.9 g/dL Normal 6.4-8.3 [facility] Comment on above: Performed By: #### L IPR, CP ####[facility] RehabilitationVastechYwpcurrffgwy1603 [place] [address] Sodium 140 mmol/L Normal 135-144 [facility] Comment on above: Performed By: #### L IPR, CP ####[facility] [address] [place] [address] Urea nitrogen 18 mg/dL Normal 8- [facility] Comment on above: Performed By: #### L IPR, CP ####[facility] [address] [place] [address] BUN/CRE Ratio NOT REPORTED Normal 06-25 [facility] Comment on above: Performed By: #### L IPR, CP ####[facility] [address] [place] [address] Staging: NOT REPORTED Normal [facility] Comment on above: Performed By: #### L IPR, CP ####[address] [address] Discharge Summaryon 08-03-20 17 HIM IP Note OR Lance Crewmember Normal [facility] Lipid Profileon 08-03-2017 Cholesterol 143 mg/dL Normal <200 [facility] Comment on above: Result Comment: Chol esterol Guidelines: <200 Desirable 200-240 Borderline >240 Undesirable Performed By: #### L IPR, CP ####[facility] [address] [place] [address] Cholesterol to HDL Ratio 4.9 {ratio} Normal <5 [facility] Comment on above: Performed By: #### L IPR, CP ####[facility] RehabilitationPureSignCo [address] [place] [address] HDL Cholesterol 29 mg/dL Low >40 [facility] Comment on above: Result Comment: HDL Guidelines: <40 Undesirable 40-59 Borderline >59 Desirable Performed By: #### L IPR, CP ####[facility] [address] [place] [address] LDL Cholesterol 58 mg/dL Normal 0-130 [facility] Comment on above: Result Comment: LDL Guidelines: <100 Desirable 100-129 Near to/above Desirable 130-159 Borderline >159 UndesirableDirect (measured) LDL and calculated LDL are not interchangeable tests. Performed By: #### L IPR, CP ####[address] [address] Triglyceride 282 mg/dL High <150 [facility] Comment on above: Result Comment: Trig lyceride Guidelines: <150 Desirable 150-199 Borderline 200-499 High >499 Very high Based on AHA Guidelines for fasting triglyceride, July 2012.[address] [address] Performed By: #### L IPR, CP ####[address] [address] Cholesterol in VLDL mass conc NOT REPORTED Normal - [facility] Comment on above: Performed By: #### L IPR, CP ####[address] [address] Brain Natri. Peptideon 08-02 BNP Normal [facility] Comment on above: Result Comment: Pro- BNP Reference Range:Rule Out: <300Grey Zone: Age <50 300-450 Age 50-75 300-900 Age >75 300-1800Usually represents mild to moderate HF but other cardiopulmonary causes cannot be ruled out.Rule In: Age <50 >450 Age 50-75 >900 Age >[address] [address] Performed By: #### B ACTIVITY DIRECTOR, TROPI, TSH, MG, PT ####[address] [address] BNP 347 pg/mL High <300 [facility] Comment on above: Result Comment: Pro- BNP results cannot be compared to BNP results. Performed By: #### B ACTIVITY DIRECTOR, TROPI, TSH, MG, PT ####[address] [address] History and Physicalon 08-02 HIM IP Note OR Lance Crewmember Normal [facility] Magnesiumon 08-02-2017 Magnesium 1.8 mg/dL Normal 1.6-2.6 [facility] Comment on above: Result Comment: [facility] [address] [place] [address] Performed By: #### B ACTIVITY DIRECTOR, TROPI, TSH, MG, PT ####[address] [address] PTon 08-02-2017 INR Coag RelTime (PPP) 0.9 {INR} Normal [facility] Comment on above: Result Comment: Ther apeutic Range: Moderate Anticoagulant Intensity: INR = 2.0-3.0 High Anticoagulant Intensity: INR = 2.5-3.5[facility] [address] [place] [address] Performed By: #### B ACTIVITY DIRECTOR, TROPI, TSH, MG, PT ####[address] [address] Prothrombin time (PT) Coag time (PPP) 9.9 s Normal 9.4-12.6 [facility] Comment on above: Performed By: #### B ACTIVITY DIRECTOR, TROPI, TSH, MG, PT ####[address] [address] Thyroid Stim. Horm.on 2016 Thyroid stimulating hormone (TSH) 1.15 m[IU]/L Normal 0.30-5.00 [facility] Comment on above: Result Comment: [facility] [address] [place] [address] Performed By: #### B ACTIVITY DIRECTOR, TROPI, TSH, MG, PT ####[address] [address] Troponinon 08-02-2017 Troponin I.cardiac mass conc Normal [facility] Comment on above: Result Comment: Refe rence Range: <0.03 Within reference range. 0.03-0.09 Possible myocardial damage.Repeat at appropriate intervals to rule out chronic elevation. >= 0.10 Indicative of myocardial damage.[facility] [employer] [address] [place] [address] Performed By: #### T ROPI ####[address] [address] Troponin T.cardiac mass conc ug/L Normal <0.03 [facility] Comment on above: Result Comment: Trop onin T results cannot be compared to Troponin-I results. Performed By: #### T ROPI ####[address] [address] Troponin I.cardiac mass conc Normal [facility] Comment on above: Result Comment: Refe rence Range: <0.03 Within reference range. 0.03-0.09 Possible myocardial damage.Repeat at appropriate intervals to rule out chronic elevation. >= 0.10 Indicative of myocardial damage.[employer] [address] [place] [address] Performed By: #### T ROPI ####[address] [address] Troponin T.cardiac mass conc ug/L Normal <0.03 [facility] Comment on above: Result Comment: Trop onin T results cannot be compared to Troponin-I results. Performed By: #### T ROPI ####[address] [address] Troponin I.cardiac mass conc Normal [facility] Comment on above: Result Comment: Refe rence Range: <0.03 Within reference range. 0.03-0.09 Possible myocardial damage.Repeat at appropriate intervals to rule out chronic elevation. >= 0.10 Indicative of myocardial damage.[facility] Rehabilitation[facility] [address] [place] [address] Performed By: #### T ROPI ####[address] [address] Troponin T.cardiac mass conc ug/L Normal <0.03 [facility] Comment on above: Result Comment: Trop onin T results cannot be compared to Troponin-I results. Performed By: #### T ROPI ####[facility] [place] [address] Troponin I.cardiac mass conc Normal [facility] Comment on above: Result Comment: Refe rence Range: <0.03 Within reference range. 0.03-0.09 Possible myocardial damage.Repeat at appropriate intervals to rule out chronic elevation. >= 0.10 Indicative of myocardial damage.[address] [place] [address] Performed By: #### B ACTIVITY DIRECTOR, TROPI, TSH, MG, PT ####[address] [place] [address] Troponin T.cardiac mass conc ug/L Normal <0.03 [facility] Comment on above: Result Comment: Trop onin T results cannot be compared to Troponin-I results. Performed By: #### B ACTIVITY DIRECTOR, TROPI, TSH, MG, PT ####[facility] [place] [address] Discharge Summaryon 07-11-20 17 HIM IP Note OR Lance Crewmember Normal [facility] History and Physicalon 07-10 HIM IP Note OR Lance Crewmember Normal [facility] Vital Signs Date Time Vital Sign Value Performing Clinician Facility 08-10-2024 13:49-0500 Body height 172.7 cm Renetta Lux MD Work Phone: [facility] 08-10-2024 13:49-0500 Body mass index (BMI) [Ratio] 41.36 kg/m2 Renetta Lux MD Work Phone: [facility] 08-10-2024 13:49-0500 Body weight 123.38 kg Renetta Lux MD Work Phone: [facility] 08-10-2024 13:49-0500 Diastolic blood pressure 62 mm[Hg] Renetta Lux MD Work Phone: [facility] 08-10-2024 13:49-0500 Heart rate 62 /min Renteta Lux MD Work Phone: [facility] 08-10-2024 13:49-0500 Respiratory rate 16 /min Renetta Lux MD Work Phone: [facility] 08-10-2024 13:49-0500 Systolic blood pressure 106 mm[Hg] Renetta Lux MD Work Phone: [facility] 06-17-2024 09:07-0400 Body height 172.7 cm Shima Resendez ACTIVITY DIRECTOR Work Phone: [facility] 06-17-2024 09:07-0400 Body mass index (BMI) [Ratio] 41.05 kg/m2 Shima Resendez ACTIVITY DIRECTOR Work Phone: [facility] 06-17-2024 09:07-0400 Body temperature 97.11 [degF] Shima Resendez ACTIVITY DIRECTOR Work Phone: [facility] 06-17-2024 09:07-0400 Body weight 122.47 kg Shima Resendez ACTIVITY DIRECTOR Work Phone: [facility] 06-17-2024 09:07-0400 Diastolic blood pressure 60 mm[Hg] Shima Resendez ACTIVITY DIRECTOR Work Phone: [facility] 06-17-2024 09:07-0400 Heart rate 60 /min Shima Resendez ACTIVITY DIRECTOR Work Phone: [facility] 06-17-2024 09:07-0400 Systolic blood pressure 118 mm[Hg] Shima Resendez ACTIVITY DIRECTOR Work Phone: [facility] 01-20-2024 15:12-0400 Blood Pressure Location Ross WEINBERG [facility] 01-20-2024 15:12-0400 Diastolic blood pressure 86 mm[Hg] Ross NILL [facility] 01-20-2024 15:12-0400 Heart rate 80 /min Ross NILL [facility] 01-20-2024 15:12-0400 Respiratory rate 16 /min Ross NILL [facility] 01-20-2024 15:12-0400 Systolic blood pressure 130 mm[Hg] Ross NILL [facility] 09-16-2021 10:45-0500 Body height 172.72 cm Pat Rogelmond Other [employer] Other 09-16-2021 10:45-0500 Body mass index (BMI) [Ratio] 41.05 kg/m2 Pat Ann Marie Other [employer] Other 09-16-2021 10:45-0500 Body temperature 99 [degF] Pat Rogelmond Other [employer] Other 09-16-2021 10:45-0500 Body weight 122.47 kg Pat Rogelmond Other [employer] Other 09-16-2021 10:45-0500 Respiratory rate 18 /min Pat Rogelmond Other [employer] Other 09-16-2021 10:45-0500 SaO2% (BldA) [Mass fraction] 96 % Pat Ann Marie Other [employer] Other 05-31-2019 10:25-0400 BP Diastolic 78 mm[Hg] [facility] [place] 05-31-2019 10:25-0400 BP Systolic 126 mm[Hg] [facility] A LITTLE WORLDy [facility] , [place] 05-31-2019 10:25-0400 Pulse (Heart Rate) 76 /min Felix [facility], [place] 05-31-2019 10:25-0400 Pulse Oximetry 95 % Felix Cason [facility] , [place] 05-31-2019 10:25-0400 Respiratory Rate 16 /min [facility] , [place] 05-31-2019 09:53-0400 Body Temperature 96.8 [degF] Felix [facility] Kamla [facility] , [place] 05-31-2019 07:24-0400 BMI (Body Mass Index) 39.43 kg/m2 Felix [facility], [place] 05-31-2019 07:24-0400 Body weight 121.11 kg [facility] , [place] 05-31-2019 07:24-0400 Height 175.3 cm Felix [place], [place] Encounters Encounter Date Encounter Type Care [...] 08-10-2024 Bamboo uli Lux MD Work Phone: [facility] Start: 08-10-2024 End: 08-10-2024 Bamramono flowsbettye Lux MD Work Phone: [facility] Start: 08-10-2024 End: 08-10-2024 Office [...] Available Start: 08-02-2024 End: 08-02-[address] [facility] Start: 07-22-2024 End: 07-22-2024 Bamboo flowsheet Piyush Alt RN [facility] Start: 07-22-2024 End: 07-22-2024 Bamboo flowsheet Piyush Alt RN [facility] Start: 07-22-2024 End: 07-22-2024 ambulatory PIYUSH ALT Not Available Start: 06-17-2024 End: 06-17-2024 Bamboo flowsheet Shima Resendez ACTIVITY DIRECTOR Work Phone: [facility] Start: 06-17-2024 End: 06-17-2024 Bamboo flowsheet Shima Resendez ACTIVITY DIRECTOR Work Phone: [facility] Start: 06-17-2024 End: 06-17-2024 Office outpatient visit 25 minutes Shima Resendez ACTIVITY DIRECTOR Work Phone: [facility] Comment on [...] Morbid obesity with BMI of 40.0-44.9, adult ([facility]); History of CVA (cerebrovascular accident); Controlled type 2 diabetes mellitus without complication, without long-term current use of insulin ([facility]); Hyperlipidemia, unspecified ([facility]); Type 2 diabetes mellitus without complications ([facility]); Gastro-esophageal reflux disease without esophagitis; Esophageal reflux; Mixed hyperlipidemia ([facility]) Start: 06-17-2024 End: 06-17-2024 ambulatory SHIMA RESENDEZ Not Available Start: 05-10-2024 End: 05-10-2024 [facility] Start: 04-06-2024 End: 04-06-2024 ambulatory SHAIKH [...] FAWWAD Not Available Start: 11-26-2022 [facility] Start: 11-19-2022 End: 11-20-2022 ambulatory EHAB ELTASHELBY Facility:H1 Start: 10-29-2022 End: 10-29-2022 ambulatory Khalil Fawwad Facility:[facility] Start: 10-29-2022 End: 10-29-2022 ambulatory MD Shaikh Mcnally Work Phone: [facility] Work Phone: Start: 10-29-2022 End: 10-29-2022 Patient encounter procedure MD Shaikh Mcnally Work Phone: [facility] [address] Work Phone: Start: 05-02-2022 End: 05-02-[address] DOCTOR RODRIGES Facility: Start: 09-19-2021 End: 09-20-2021 ambulatory EUSEBIO [facility] Start: 09-16-2021 (URG) Urgent Care Visit Pat hunter [facility] Start: 09-16-2021 End: 09-16-2021 ambulatory Pat Jesus Other [employer] Other Start: 07-19-2021 End: 07-20-2021 ambulatory EUSEBIO Cason [facility] Start: 07-19-2021 End: 07-19-2021 Subsequent hospital visit by physician Suki Covid Screening Schedule [facility] Covid Screening Comment on above: COVID Start: 08-02-2020 End: 08-05-2020 ambulatory EUSEBIO Cason [facility] Start: 12-08-2019 End: 12-10-2019 Subsequent hospital visit by physician [facility] Imaging Room [facility] Comment on above: 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) Start: 05-31-2019 End: 05-31-2019 Subsequent hospital visit by physician Felix Mayo Work Phone: [facility] Start: 03-04-2018 End: 03-05-2018 Ambulatory DEFAULT PHYSICIAN Facility:[facility] Start: 08-02-2017 End: 08-03-2017 Evaluation and management of inpatient NENA NUNEZ [facility] Start: 07-10-2017 End: 07-11-2017 Ambulatory TORICATHERINEALLISON RAMIREZ [facility] Procedures Date Procedure Procedure Detail Performing [...] PROTOCOL NENA NUNEZ Start: 07-11-2017 POCT GLUCOSE ENNA Mane Start: 07-10-2017 POCT GLUCOSE NENA Mane [...] 01-04-2034 Screening for malignant neoplasm of colon [facility] Start: 05-31-2029 Screening for malignant neoplasm of colon Colon cancer screen colonoscopy [employer] Work Phone: Start: 03-23-2026 Glaucoma screening Diabetes: Retinopathy Screening [facility] Start: 11-09-2024 End: 11-09-2024 Patient encounter procedure 11/09/2024 1:40 PM EST Office Visit [facility] [address] [address] [place] [id number] Renetta Lux MD [address] [place] [address] [facility] Start: 09-21-2024 End: 09-21-2024 Patient encounter procedure 09/21/2024 1:00 PM EST Office Visit [facility] [address] [place] [address] Shima Resendez NP [address] [place] [address] [facility] Start: 2024 Medicare Annual Wellness (AWV) Medicare Annual Wellness (AWV) [facility] Start: 09-16-2024 End: 09-16-2024 Patient encounter procedure 09/16/2024 1:00 PM EST Office Visit [facility] [address] [place] [phone] Shima Resendez, ACTIVITY DIRECTOR [address] [place] [phone] [facility] Start: 09-14-2024 End: 09-14-2024 Patient encounter procedure 09/14/2024 11:00 AM EST Office Visit [facility] [address] [place] [phone] Shima Resendez, ACTIVITY DIRECTOR [address] [place] [address] [facility] Start: 09-09-2024 End: 09-09-2024 Clinical Support [facility] Comment on above: Arrived Start: 08-19-2024 End: 08-19-2024 Clinical Support 08/19/2024 2:30 PM EST Clinical Support [facility] [address] [facility] [place] [phone] Piyush Sanders RN [facility] Start: 08-10-2024 End: 08-10-2024 Patient encounter [facility] Comment on above: Type 2 diabetes mellitus with hyperglyce alexandria, without long-term current use of insulin ([facility]); Diabetes mellitus type 2, noninsulin dependent ([facility]) Start: 07-07-2024 Influenza vaccination Influenza Vaccine (#1) [facility] Comment on above: Postponed from 06/06/2024 (Other Medical Reasons) Start: 06-22-2024 Hemoglobin A1c measurement Diabetes: Hemoglobin A1C [facility] Start: 06-17-2024 End: 06-17-2025 CBC W Auto Differential panel - Blood CBC and differential Lab Routine Primary hypertension ([facility]) Type 2 diabetes mellitus without complications ([facility]) Expected: 06/17/2024 (Approximate), Expires: 06/17/2025 [facility] Comment on above: Expected: 06/17/2024 (Approximate), Expi res: 06/17/2025 Start: 06-17-2024 End: 06-17-2025 Comprehensive metabolic 2000 panel - Serum or Plasma Comprehensive metabolic panel Lab Routine Primary hypertension (CMS/HCC) Type 2 diabetes mellitus without complications (CMS/HCC) Expected: 06/17/2024 (Approximate), Expires: 06/17/2025 [facility] Comment on above: Expected: 06/17/2024 (Approximate), Expi res: 06/17/2025 Start: 06-17-2024 End: 06-17-2025 Hemoglobin A1c/Hemoglobin.total in Blood Hemoglobin A1c Lab Routine Primary hypertension (CMS/HCC) Type 2 diabetes mellitus without complications (CMS/HCC) Expected: 06/17/2024 (Approximate), Expires: 06/17/2025 [facility] Comment on above: Expected: 06/17/2024 (Approximate), Expi res: 06/17/2025 Start: 06-17-2024 End: 06-17-2025 Lipid 1996 panel - Serum or Plasma Lipid panel Lab Routine Hyperlipidemia, unspecified (CMS/HCC) Expected: 06/17/2024 (Approximate), Expires: 06/17/2025 [facility] Comment on above: Expected: 06/17/2024 (Approximate), Expi res: 06/17/2025 Start: 06-17-2024 End: 06-17-2024 Patient encounter procedure 06/17/2024 9:30 AM EDT Office Visit [facility] [address] [place] [address] Shima Resendez NP [address] [place] [address] Mild vascular dementia without behavioral disturbance, psychotic disturbance, mood disturbance, or anxiety ([facility]) (Primary Dx); Diabetic polyneuropathy associated with type 2 diabetes mellitus ([facility]); Chronic obstructive pulmonary disease, unspecified COPD type ([facility]); Primary hypertension ([facility]); Controlled type 2 diabetes mellitus with diabetic polyneuropathy, without long-term current use of insulin ([facility]); Morbid obesity with BMI of 40.0-44.9, adult ([facility] Comment on above: Mild vascular dementia without behaviora l disturbance, psychotic disturbance, mood disturbance, or anxiety ([facility]) (Primary Dx); Diabetic polyneuropathy associated with type 2 diabetes mellitus ([facility]); Chronic obstructive pulmonary disease, unspecified COPD type ([facility]); Primary hypertension ([facility]); Controlled type 2 diabetes mellitus with diabetic polyneuropathy, without long-term current use of insulin ([facility]); Morbid obesity with BMI of 40.0-44.9, adult ([facility]) Start: 06-06-2024 Influenza vaccination Influenza Vaccine (#1) [facility] Start: 05-06-2024 Urine screening for protein Diabetes: Urine Protein Screening [facility] Start: 07-18-2022 End: 07-18-2022 Patient encounter procedure 07/18/2022 Office Visit Pulmonology Steve Lynn DO [address] [address] [facility] OUTREACH PUL[facility] Start: 03-20-2022 Diabetic foot examination [facility]abetic foot [facility] Phone: Start: 03-20-2022 Diabetic microalbuminuria test Diabetic microalbuminuria test [facility] Phone: Start: 03-20-2022 Hemoglobin A1c measurement A1C test (Diabetic or Prediabetic) [employer] Phone: Start: 11-20-2021 Diabetic retinal exam Diabetic retinal exam [facility] [email or web address] Phone: Start: 10-11-2021 End: 10-11-2021 Patient encounter procedure 10/11/2021 Office Visit Neurology Castillo Clark MD [address] [place] [address] [place] [address] [facility] NEUROLOG[facility] Start: 09-19-2021 End: 09-19-2021 Patient encounter procedure 09/19/2021 Office Visit Family Medicine Eusebio Daniels MD [address] [place] [address] [phone] [facility] MARGARETH Start: 07-27-2021 Annual Wellness Visit (AWV) Annual Wellness Visit (AWV) [facility] [email or web address] Phone: Start: 06-06-2021 Influenza vaccination Flu vaccine (#1) [facility] [email or web address] Phone: Start: 07-02-2020 A1C test (Diabetic or Prediabetic) A1C test (Diabetic or Prediabetic) [place], [place] Start: 07-02-2020 Creatinine measurement Creatinine monitoring [facility] [email or web address] Phone: Start: 07-02-2020 Creatinine monitoring Creatinine monitoring [place], [place] Start: 07-02-2020 Diabetic microalbuminuria test Diabetic microalbuminuria test [place], [place] Start: 07-02-2020 Lipid panel Lipid screen [facility] [email or web address] Phone: Start: 07-02-2020 Lipid screen Lipid screen [place], [place] Start: 07-02-2020 Potassium monitoring Potassium monitoring [place], [place] Start: 06-29-2020 End: 06-29-2020 Office Visit 06/29/2020 Office Visit Pulmonology Steve Lynn, [address] [address] [phone] [facility] OUTREACH PULM Start: 05-31-2020 Colon cancer screen colonoscopy Colon cancer screen colonoscopy [place], [place] Start: 04-13-2020 Colon cancer screen colonoscopy Colon cancer screen colonoscopy [place], [place] Start: 04-01-2020 [object Object] Diabetic foot exam [place] Start: 02-03-2020 End: 02-03-2020 Office Visit 02/03/2020 Office Visit Neurology Castillo Clark MD [address] [place] [address] [place] [address] [phone] [facility] NEUROLOGY Start: 07-05-2019 End: 07-05-2019 Office Visit 07/05/2019 Office Visit Family Medicine Eusebio Daniels MD [address] [place] [address] [phone] [facility] PRIMARY CARE MARGARETH Start: 07-02-2019 A1C test (Diabetic or Prediabetic) A1C test (Diabetic or Prediabetic) [place] Start: 06-17-2019 End: 06-17-2019 Office Visit 06/17/2019 Office Visit Pulmonology Steve Lynn DO [address] [facility] [address] [place], [place] [id number] [facility] Start: 06-06-2019 Influenza vaccination Flu vaccine (#1) [place] Start: 05-25-2019 Diabetic microalbuminuria test Diabetic microalbuminuria test [place] Start: 04-15-2019 Pneumococcal 65+ years Vaccine (2 of 2 - PPSV23) Pneumococcal 65+ years Vaccine (2 of 2 - PPSV23) [place] Start: 03-21-2019 Annual Wellness Visit (AWV) Annual Wellness Visit (AWV) [place] Start: 02-11-2019 Lipid screen Lipid screen [place] Start: 01-01-2019 Screening for malignant neoplasm of colon [facility] Start: 11-15-2018 Diabetic retinal exam Diabetic retinal exam [place] Start: 08-03-2018 Creatinine monitoring Creatinine monitoring [place] Start: 08-03-2018 Potassium monitoring Potassium monitoring [place] Start: 05-09-2017 Shingles Vaccine (2 of 3) Shingles Vaccine (2 of 3) [place] Start: 2013 Annual Wellness Visit (AWV) Annual Wellness Visit (AWV) [place] Start: 2000 Screening for malignant neoplasm of lung Low dose CT lung screening [facility] Work Phone: Start: 1969 DTaP/Tdap/Td vaccine (1 - Tdap) DTaP/Tdap/Td vaccine (1 - Tdap) [place], [place] Start: 1969 Hepatitis B vaccine (1 of 3 - Risk 3-dose series) Hepatitis B vaccine (1 of 3 - Risk 3-dose series) [place], [place] Start: 1950 AAA screen AAA screen [place], [place] Start: 1950 Hepatitis C screen Hepatitis C screen [place], [place] Start: 1950 Hepatitis C screening Hepatitis C screen [facility] [email or web address] Phone: Start: 1950 Screening for malignant neoplasm of colon [facility] End: 07-19-2021 COVID-19 COVID-19 Lab Routine Covid 1 Occurrences starting 07/19/2021 until 07/19/2021 [email or web address] Phone: Comment on above: 1 Occurrences starting 07/19/2021 until 07/19/2021 COVID-19 COVID-19 Lab Rou missy COVID 07/19/2021 12:11 PM EDT [facility] [employer] Work Phone: Microalbumin/Creatin ine panel in random Urine Microalbumin / creatinine urine ratio Lab Routine Primary hypertension (CMS/HCC) Type 2 diabetes mellitus without complications (CMS/HCC) Ordered: 06/17/2024 [facility] [employer] Work Phone: Comment on above: Ordered: 06/17/2024 End: 05-31-2019 POCT glucose POCT glucose Point of Care Testing Routine One Time for 1 Occurrences starting 05/31/2019 until 05/31/2019 [place] Comment on above: One Time for 1 Occurrences starting 05/07 until 05/31/2019 Surgical Pathology Surgical Path ology Lab Routine ONE TIME for 1 Occurrences starting 05/31/2019 [place] Comment on above: ONE TIME for 1 Occurrences starting 05/07 Immunizations Immunization Date Immunization Notes Care Provider [facility] 09-17-2023 influenza virus vaccine, unspecified formulation Ross WEINBERG [facility] 09-17-2023 Influenza, High-dose Seasonal, Quadrivalent, Preservative Free Shima Resendez ACTIVITY DIRECTOR Work Phone: [facility] 06-03-2023 zoster vaccine recombinant Shima Resendez ACTIVITY DIRECTOR Work Phone: [facility] 06-03-2023 Shingrix 50 MCG/0.5M L vaccine Shima Resendez ACTIVITY DIRECTOR Work Phone: [facility] 04-01-2023 zoster vaccine recombinant Shima Resendez ACTIVITY DIRECTOR Work Phone: [facility] 06-29-2021 COVID-19, Pfizer, PF , 30mcg/0.3mL [facility] Schedule [facility] Comment on above: Result Comment: 2023: [id number] 06-08-2021 SARS-CoV-2 (COVID-19 ) mRNA BNT-162b2 vax Ross DRAKEL [facility] Comment on above: Result Comment: 2023: [id number] 07-16-2020 influenza, high dose seasonal, preservative-free [facility] Work Phone: 07-16-2020 Influenza, Quadv, adjuvanted, 65 yrs +, IM, PF (Fluad) [facility] Work Phone: 07-05-2019 influenza, injectabl e, quadrivalent, preservative free [facility] Room [facility] 07-05-2019 pneumococcal polysaccharide vaccine, 23 valent [facility] Room [facility] 03-14-2017 zoster vaccine, live [facility], [place] 07-08-2016 Influenza Vaccine, unspecified formulation [facility] , [place] 07-08-2016 influenza virus vaccine, unspecified formulation Shima Resendez ACTIVITY DIRECTOR Work Phone: [facility] 07-08-2016 influenza, seasonal, injectable Shima Resendez ACTIVITY DIRECTOR Work Phone: [facility] 04-05-2016 pneumococcal conjuga te vaccine, 13 valent [facility] 07-26-2015 influenza virus vaccine, unspecified formulation [facility], [place] 07-26-2015 influenza virus vaccine, whole virus Shima Resendez ACTIVITY DIRECTOR Work Phone: [facility] 04-15-2014 pneumococcal polysaccharide vaccine, 23 valent Felix Back [facility] Healthcare Payers Date Payer Category Payer Self-pay 2022 Medicare (Managed Care) [employer] [id number] 2022 Unknown 2021 Unknown [id number] 2020 Medicare [id number] 2019 Private Health Insurance [id number] 2018 Private Health Insurance [employer]NA AETNA SENIOR MEDICARE SUPP xxxxxxxxxx 2018-Present [phone] [address] [place] [address] xxxxxxxxxx [id number] 2016 Unknown [id number] 2015 Medicare [id number] 2014 Medicare MEDICARE MEDICAR E PART A AND B xxxxxxxxxxx 2014-Present [phone] [address] [address] [place] [address] xxxxxxxxxxx [id number] 2014 Medicare [id number] 1950 Unknown [id number] [id number]. 173 1950 Unknown [id number] 2.16.840.1.113441.3.579.2. 173 1950 Unknown [id number] 2.16.840.1.294006.3.579.2. 174 1950 Unknown [id number] 2.16.840.1.279644.3.579.2. 593 1950 Unknown [id number] 2.16.840.1.954515.3.579.2. 593 1950 Unknown [id number] 2.16.840.1.636723.3.579.2. 593 1950 Unknown [id number] 2.16.840.1.854264.3.579.2. 727 1950 Unknown [id number] 2.16.840.1.302601.3.579.2. 1259 1950 Unknown [id number] 2.16.840.1.115950.3.579.2. 1259 1950 Unknown [id number] 2.16.840.1.427354.3.579.2. 1259 1950 Unknown [id number] 2.16.840.1.418468.3.579.2. 1259 1950 Unknown [id number] 2.16.840.1.510895.3.579.2. 1259 1950 Unknown [id number] 2.16.840.1.690642.3.579.2. 1259 1950 Unknown [id number] 2.16.840.1.083396.3.579.2. 1259 1950 Unknown [id number] 2.16.840.1.482186.3.579.2. 1259 Unknown [id number] 2.16.840.1.585810.3.579.2. 531 Social History Date Type Detail Facility Start: 05-31-2019 End: 12-16-2023 Tobacco smoking status PRIS Former smoker [facility] End: 03-21-2010 History of tobacco use Current smoker [place] Start: 05-31-2019 End: 2023 Cigarettes smoked current (pack per day) - Reported [place] Start: 05-31-2019 End: 2023 Alcohol intake No Rose - Alfalfa [facility] Start: 1950 Sex Assigned At Not on file [place] Start: 11-04-2019 End: 07-19-2021 Alcohol intake Current non-drinker of alcohol (finding) [place] Start: 07-19-2021 End: 12-16-2023 Tobacco use and exposure Never used [employer] Start: 03-20-2021 History SDOH Financial 5 [employer] Work Phone: Start: 03-20-2021 History SDOH Food Worry 1 [employer] Phone: Exposure to SARS-CoV -2 (event) Not sure [facility] Start: 1950 Sex Assigned At Male F [facility] Tobacco smoking status Never [facility] History of tobacco use Cigarette Smoker N [...] Equipment Origin al Text Equipment Identifier Dates [id number] Start: 08-11-2024 1 each by Does n ot apply route daily [id number] Test BS daily DX : E11.65 [id number] Start: 04-06-2020 USE ONCE A DAY T O TEST BLOOD SUGARS. [id number] Start: 08-11-2024 End: 08-11-2025 Functional Status Date Assessment Result Facility 01-20-2024 Functional Status N/A [facility] Clinical Notes 09-16-2021 to 08-10-2024 Renetta Lux MD - 08/10/2024 1:40 PM Jossie Resendez, ACTIVITY DIRECTOR - 06/18/2024 1:04 PM Darius Resendez, ACTIVITY DIRECTOR - 06/18/2024 1:01 PM Darius Resendez, ACTIVITY DIRECTOR - 06/18/2024 1:00 PM EDT Note Date & Type Note Facility 08-10-2024 History of Present illness Narrative Sahron Guo is a 73 y.o. male Shima [...] After use, clean tip and replace cap. Xujeutuqeqd-Liqxvacmp-Zgcxat (Trelegy Ellipta) 200-62.5-25 MCG/ACT aerosol powder 1 [...] daily traZODone (DESYREL) 50 mg, Nightly Umeclidinium Wellington (Incruse Ellipta) 62.5 MCG/ACT aerosol powder 1 puff, Daily RT ALLERGIES: No Known Allergies Past Medical History: Diagnosis Date Anxiety and depression ([facility]) Arthritis Atrial fibrillation ([facility]) COPD (chronic obstructive pulmonary disease) ([facility]) Coronary artery disease ([facility]) Diverticulosis DVT (deep venous thrombosis) ([facility]) Essential tremor Fatigue History of CVA (cerebrovascular accident) HTN (hypertension) ([facility]) Hyperlipidemia ([facility]) Hypertension ([facility]) Moderate vascular dementia without behavioral disturbance, psychotic disturbance, mood disturbance, or anxiety ([facility]) Sleep apnea in adult SVT (supraventricular tachycardia) ([facility]) Type 2 diabetes mellitus ([facility]) Past Surgical History: Procedure Laterality [...] hyperglycemia, without long-term current use of insulin ([facility]) - POCT glucose manually resulted [...] 5 mg once a day Mixed hyperlipidemia ([facility]) Primary hypertension ([facility]) Vitamin D deficiency Encounter for dietary consultation Diet and exercise reviewed with the patient Class 3 severe obesity due to excess calories with serious comorbidity and body mass index (BMI) of 40.0 to 44.9 in adult ([facility]) Follow up in about 3 months (around 11/10/2024). documented in this encounter [facility] 08-02-2024 Note [facility] Cardiology Clinic Note Chief Complaint: Patient here [...] COPD, and DM. He used to see [facility] cardiology in [place]. Then saw Dr. Mattson in [place]. Now going to establish care with [place]. Says his BP averages around 130-140's systolic. [...] He built a tricycle out of a [employer] and sold it 2 weeks after he built it. He now bought a [employer] with a short block. He is planning on putting it on a Chevy pickup chassis with a large block engine. He is also redoing a house in [place] that is 4 stories high and has [...] pectoris (CMS/HCC), Atri (more content not included)... [facility] 06-18-2024 History of Present illness Narrative [...] visit. Cardiology Dr. Fam is managing closely Images from the original note were not included. Subjective Patient ID: Sharon Guo is a 73 y.o. male who presents for Follow-up (3[facility]). HPI Specialists: Cardiology- Dr. Dr. Corrales Pulmonology- Dr. Lee Neurology- Seeing Dr. Clark in [place], [place]; HTN: Currently taking Cardizem 30mg Sotalol [...] Morbid obesity with BMI of 40.0-44.9, adult ([facility]) Discussed with patient their BMI [...] Chronic obstructive pulmonary disease, unspecified COPD type ([facility]) Currently using Trelegy Incruse Ellipta Albuterol Rescue PRN Duoneb nebulizer PRN Follows closely with Dr. Jesus Malave symptoms are well controlled at this time. Continue current regimen, Mild vascular dementia without behavioral disturbance, psychotic disturbance, mood disturbance, or anxiety ([facility]) - Primary Condition closely monitored by Neurology. Is currently taking Donepezil, Primidone, and Trazodone. Continue to monitor and follow neurology recommendations. Diabetic polyneuropathy associated with type 2 diabetes mellitus ([facility]) Currently taking Gabapentin 300mg TID. Ananda symptoms are well controlled. Continue current regimen. Relevant Medications gabapentin (Neurontin) 300 MG capsule History of CVA (cerebrovascular accident) Relevant Medications aspirin 81 MG EC tablet Other Visit Diagnoses Hyperlipidemia, unspecified ([facility]) Relevant Medications atorvastatin (Lipitor) 80 MG tablet aspirin 81 MG EC tablet Other Relevant Orders Lipid panel Type 2 diabetes mellitus without complications ([facility]) Relevant Medications glimepiride (Amaryl) 4 [...] Morbid obesity with BMI of 40.0-44.9, adult ([facility]) Discussed with patient their BMI [...] for weight loss. documented in this encounter [facility] 06-17-2024 Instructions Shima Resendez NP - 06/17/2024 [...] and simple sugars. documented in this encounter [facility] 05-10-2024 Note [facility] Cardiology Clinic Note Chief Complaint: Patient here [...] COPD, and DM. He used to see [facility] cardiology in [place]. Then saw Dr. Mattson in [place]. Now going to establish care with [place]. Says his BP averages around 130-140's systolic. 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 Does not exercise. He built a tricycle out of a [employer] and sold it 2 weeks after he built it. He now bought a [employer] with a short block. He is planning on putting it on a Chevy pickup chassis with a large block engine. He is also redoing a house in [place] that is 4 stories high and has [...] CAD (coronary artery (more content not included)... [facility] 01-26-2024 Note Chief Complaint consultation for [...] Oral, BID traZODONE (more content not included)... [facility] Comment on above: Result Comment: Elec tronically Signed By: SULTANA GATES, Ross Trejo\Date and Time Signed: 01/26/24 08:05 EDT 11-19-2022 Note CARDIAC STRESS TEST Requesting Physician: Procedure Date:11/19/2022 This was a Lexiscan Stress Test with myocardial perfusion imaging performed at the [facility] on 11/19/2022. Informed consent was obtained. An [...] perfusion images will be reported separately. [facility] 09-16-2021 Evaluation note Encounter Date [...] Patient care instructions given in writting by [facility] Care At Home document. [employer] Other Evaluation + Plan note No data available for this section General Surgery [place] Evaluation note* Diagnosis COVID documented in this encounter [facility] Work Phone: evaluation noteNo assessment information available [facility] Work Phone: Evaluation note* Diagnosis Encounter for screening for malignant neoplasm of colon- Primary Controlled type 2 diabetes mellitus without complication, without long-term current use of insulin ([facility]) Hyperlipidemia, unspecified hyperlipidemia type ([facility]) Diabetic polyneuropathy associated with type 2 diabetes mellitus (CMS/HCC) Chronic obstructive pulmonary disease, unspecified COPD type ([facility]) Morbid obesity with BMI of 40.0-44.9, adult ([facility]) Mild vascular dementia without behavioral disturbance, psychotic disturbance, mood disturbance, or anxiety ([facility]) Depression, recurrent ([facility]) Major depressive disorder, recurrent episode, unspecified Atrial fibrillation, unspecified type (CMS/HCC) Primary hypertension (CMS/HCC) Unspecified essential hypertension COPD with acute exacerbation ([facility])- Primary Diabetic polyneuropathy associated with type 2 diabetes mellitus ([facility])- Primary Chronic obstructive pulmonary disease, unspecified COPD type ([facility]) Primary hypertension ([facility]) Unspecified essential hypertension Atrial fibrillation, unspecified type ([facility]) Controlled type 2 diabetes mellitus with diabetic polyneuropathy, without long- term current use of insulin ([facility]) Hyperlipidemia, unspecified hyperlipidemia type ([facility]) Encounter for screening colonoscopy Non-seasonal allergic rhinitis, unspecified trigger Controlled type 2 diabetes mellitus without complication, without long-term current use of insulin ([facility]) Controlled type 2 diabetes mellitus with diabetic polyneuropathy, without long- term current use of insulin ([facility])- Primary Atrial fibrillation, unspecified type ([facility]) Primary hypertension ([facility]) Unspecified essential hypertension Mild vascular dementia without behavioral disturbance, psychotic disturbance, mood disturbance, or anxiety ([facility])- Primary Diabetic polyneuropathy associated with type 2 diabetes mellitus ([facility]) Chronic obstructive pulmonary disease, unspecified COPD type ([facility]) Primary hypertension ([facility]) Unspecified essential hypertension Controlled type 2 diabetes mellitus with diabetic polyneuropathy, without long- term current use of insulin ([facility]) Morbid obesity with BMI of 40.0-44.9, adult ([facility]) History of CVA (cerebrovascular accident) Transient ischemic attack (TIA), and cerebral infarction without residual deficits Controlled type 2 diabetes mellitus without complication, without long-term current use of insulin ([facility]) Hyperlipidemia, unspecified ([facility]) Type 2 diabetes mellitus without complications ([facility]) Gastro-esophageal reflux disease without esophagitis Esophageal reflux Mixed hyperlipidemia ([facility]) Mixed hyperlipidemia Type 2 diabetes mellitus with hyperglycemia, without long-term current use of insulin ([facility])- Primary Mixed hyperlipidemia ([facility]) Mixed hyperlipidemia Primary hypertension ([facility]) Unspecified essential hypertension Vitamin D deficiency Encounter for dietary consultation Class 3 severe obesity due to excess calories with serious comorbidity and body mass index (BMI) of 40.0 to 44.9 in adult ([facility]) documented in this encounter [facility] HealthcareEvaluation note* Diagnosis Mild vascular dementia without behavioral disturbance, psychotic disturbance, mood disturbance, or anxiety ([facility])- Primary Diabetic polyneuropathy associated with type 2 diabetes mellitus ([facility]) Chronic obstructive pulmonary disease, unspecified COPD type ([facility]) Primary hypertension ([facility]) Unspecified essential hypertension Controlled type 2 diabetes mellitus with diabetic polyneuropathy, without long- term current use of insulin ([facility]) Morbid obesity with BMI of 40.0-44.9, adult ([facility]) History of CVA (cerebrovascular accident) Transient ischemic attack (TIA), and cerebral infarction without residual deficits Controlled type 2 diabetes mellitus without complication, without long-term current use of insulin ([facility]) Hyperlipidemia, unspecified ([facility]) Type 2 diabetes mellitus without complications ([facility]) Gastro-esophageal reflux disease without esophagitis Esophageal reflux Mixed hyperlipidemia ([facility]) Mixed hyperlipidemia documented in this encounter [facility] Narrative - Reported* Type Description Date Medical History DM2 Medical History stroke Medical History a-fib Medical History hypertension Surgical History cataract Surgical History heart stent Hospitalization History [employer] Other Hospital Discharge instructions No data available for this section General Surgery [facility] Progress note No data available for this section General Surgery [facility] Summary Purpose Family History No Family History Records FoundNo Family History Records FoundNo Family History Records FoundNo Family History Records FoundNo Family History Records FoundNo Family History Records Found No data available for this section No Family History Records FoundNo Family History Records FoundNo Family History Records Found Advance Directives Documents on File Type Date Recorded Patient Cisco Engineer Expl anation Advance Directives and Living Will Power of Rn Medical Surgical Latest Code Status on File Code Status [...] Documents on File Type Date Recorded Patient [employer] Engineer Expl anation ACP-Advance Directive ACP-Power of Rn Medical Surgical Latest Code Status on File Code Status [...] Discharge Medication: Sharon Guo Home Medication Instructions YENNIFER:[id number] Printed on:05/31/19 0950 Medication Information apixaban (ELIQUIS) [...] EXTRACRANIAL BILAT STUDY Castillo Clark MD [address] [facility] [address] [place] [address] [facility] Lab [address] [place] [address] Status Reason Specialty Diagnoses / Procedures Re ferred By Contact Referred To Contact Closed Radiology Diagnoses 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) Procedures CT HEAD WO CONTRAST HC CTA HEAD W & W/O CONT HC CT BRAIN W/O CONTRAST Castillo Clark MD [address] [facility] [address] [place] [address] [facility] [address] Scan [address] [place] [address] Assessments Diagnosis 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) Additional Source Comments (unrecognized sect ion and content) No Status Records FoundNo Status Records FoundNo Status Records FoundNo Status Records FoundNo Status Records FoundNo Status Records FoundNo Status Records FoundNo Status Records FoundNo Status Records Found INFORMATION SOURCE (unrecogn ized section and content) DATE CREATED AUTHOR 03/25/2018 [facility] DATE CREATED AUTHOR AUTHOR'S ORGANIZ ATION 04/13/2018 [facility] DATE CREATED AUTHOR AUTHOR'S ORGANIZ ATION 07/20/2021 [facility] DATE CREATED AUTHOR AUTHOR'S ORGANIZ ATION 09/20/2021 [facility] DATE CREATED AUTHOR AUTHOR'S ORGANIZ ATION 11/07/2022 [facility] DATE CREATED AUTHOR AUTHOR'S ORGANIZ ATION 11/28/2022 [facility] DATE CREATED AUTHOR AUTHOR'S ORGANIZ ATION 01/26/2024 [facility] DATE CREATED AUTHOR AUTHOR'S ORGANIZ ATION 08/12/2024 [facility] DATE CREATED AUTHOR AUTHOR'S ORGANIZ ATION 08/30/2024 [facility] Reason for Visit (unrecogniz ed section and content) Status Reason Specialty Diagnoses / Procedures Referre d By Contact Referred To Contact Diagnoses SCREENING Procedures NV OFFICE/OUTPT VISIT,PROCEDURE ONLY NV COLONOSCOPY FLX DX W/COLLJ SPEC WHEN PFRMD COLONOSCOPY Back, MD Felix [address] [place] [address] [facility] Status Reason Specialty Diagnoses / Procedures Re ferred By Contact Referred To Contact Pending Review Vascular Lab Diagnoses 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) Procedures VL DUP CAROTID BILATERAL HC EXTRACRANIAL BILAT STUDY Castillo Clark MD [address] [place] [address] Dr [address] [place] [address] [facility] [address] [place] [address] Status Reason Specialty Diagnoses / Procedures Re ferred By Contact Referred To Contact Closed Radiology Diagnoses 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) Procedures CT HEAD WO CONTRAST HC CTA HEAD W & W/O CONT HC CT BRAIN W/O CONTRAST Castillo Clark MD [address] [place] [address] Dr [address] [place] [address] [facility] [address] [place] [address] Reason Comments Diabetes [facility] 1 MONTH AGO AIC 8.7% Specialty Diagnoses / Procedures Referred By Contac t Referred To Contact Endocrinology Diagnoses Diabetes mellitus type 2, noninsulin dependent (CMS/HCC) Procedures NV OFFICE/OUTPATIENT [facility] 60 MINUTES Shima Resendez, ANA [address] [place] [address] Phone: tel: fax: Renetta Lux MD [address] [place] [address] Phone: tel: fax: Referral ID Status Reason Start Date Expiration Date V isits Requested Visits Authorized [id number] Closed Specialty Services Required 06/28/2024 12/25/2024 1 1 Reason Comments Follow-up 3[facility] Care Teams (unrecognized sec tion and content) Team Status: Inactive Member Role Status Dates Shaikh Dali MD Attending Provider Active Rn Cvor Relationship Specialty Start Date End Date Shaikh Mcnally MD [address] [place] [address] PCP - Devoted 06/06/22 Demetrio Lowry MD [address] [place] [address] PCP - General Family Medicine 05/11/24 Shima Resendez NP [address] [place] [address] Nurse Practitioner Family Medicine 05/11/24 Nichol Lee LPN Licensed Practical Nurse Family Medicine 06/18/24 Rn Cvor Relationship Specialty Start Date End Date Shaikh Mcnally MD [address] [place] [address] PCP - Devoted 06/06/22 10/05/24 Demetrio Lowry MD [address] [place] [address] PCP - General Family Medicine 05/11/24 Shima Resendez NP [address] [place] [address] Nurse Practitioner Family Medicine 05/11/24 Nichol Lee LPN Licensed Practical Nurse Family Medicine 06/18/24 Rn Cvor Relationship Specialty Start Date End Date Shaikh Mcnally MD [address] [place] [address] PCP - Devoted 06/06/22 10/05/24 Demetrio Lowry MD [address] [place] [address] PCP - General Family Medicine 05/11/24 Shima Resendez NP [address] [place] [address] Nurse Practitioner Family Medicine 05/11/24 Nichol Lee LPN Licensed Practical Nurse Family Medicine 06/18/24 Rn Cvor Relationship Specialty Start Date End Date Shaikh Mcnally MD [address] [place] [address] PCP - Devoted 06/06/22 10/05/24 Demetrio Lowry MD [address] [place] [address] PCP - General Family Medicine 05/11/24 Shima Resendez NP [address] [place] [address] Nurse Practitioner Family Medicine 05/11/24 Gina Li MA Family Medicine 08/13/24 Rn Cvor Relationship Specialty Start Date End Date Shaikh Mcnally MD [address] [place] [address] PCP - Devoted 06/06/22 10/05/24 Demetrio Lowry MD [address] [place] [address] PCP - General Family Medicine 05/11/24 Shima Resendez NP [address] [place] [address] Nurse Practitioner Family Medicine 05/11/24 Gina Li MA Family Medicine 08/13/24 Rn Cvor Relationship Specialty Start Date End Date Shaikh Mcnally MD [address] [place] [address] PCP - Devoted 06/06/22 Demetrio Lowry MD [address] [place] [address] PCP - General Family Medicine 05/11/24 Zoë Beckford LPN Licensed Practical Nurse Family Medicine 02/09/24 Shima Resendez NP [address] [place] [address] Nurse Practitioner Family Medicine 05/11/24 Rn Cvor Relationship Specialty Start Date End Date Shaikh Mcnally MD [address] [place] [address] PCP - Devoted 06/06/22 Demetrio Lowry MD [address] [place] [address] PCP - General Family Medicine 05/11/24 Zoë Beckford LPN Licensed Practical Nurse Family Medicine 02/09/24 Shima Resendze NP [address] [place] [address] Nurse Practitioner Family Medicine 05/11/24 Goals (unrecognized [...] BE BASED ON THE PRIMARY CLINICAL RECORDS. [facility] [facility]. provides no warranty or guarantee of the accuracy or completeness of information in this document.
== END 2024-09-15 11:02 | disposition home or self-care (01) ==
LOC: RAD 11:03
DX: I11.9 Hypertensive heart disease without heart failure (principal); E78.5 Hyperlipidemia, unspecified; J44.1 Chronic obstructive pulmonary disease with (acute) exacerbation
CPT/HCPCS: 36415; 71046; 80053; 80061

== ENCOUNTER 2024-09-22 08:55 | Outpatient (OUT) | payer OTHER, SELFPAY ==
[2024-09-22 10:35] LABS: Anion Gap 12.5; BUN Creatinine Ratio 19.3; Calcium 8.9 mg/dL (8.5-10.1); Carbon Dioxide 29.6 mmol/L (21.0-32.0); Chloride 103 mmol/L (98-107); Estimated GFR (African America >60 (>=60 mL/min/1.73m^2); Estimated GFR (Non-African Ame 60 (>=60 mL/min/1.73m^2); Glucose 109 mg/dL (74-106); Potassium 4.1 mmol/L (3.5-5.1); Sodium 141 mmol/L (136-145)
== END 2024-09-22 08:56 | disposition home or self-care (01) ==
LOC: LAB 08:57
PROVIDERS: Visit Provider Internal Medicine Interventional Cardiology
DX: I11.0 Hypertensive heart disease with heart failure (principal)
CPT/HCPCS: 36415; 80048

== ENCOUNTER 2024-10-09 13:54 | Emergency (ER) | payer MEDICARE, SELFPAY ==
[2024-10-09 14:41] VITALS: BP 131/40; PULSE 64; TEMP 36.4; O2SAT 95; BMI 39.8
[2024-10-09 14:45] VITALS: O2SAT 96
--- NOTE | 2024-10-09 15:00 | ED.GENADUL1 ---
HPI HPI - General Adult General Chief complaint: Shortness of Breath/Dyspnea Stated complaint: UPPER RESPITIORY Time Seen by Provider: 10/09/24 14:17 Source: patient Mode of arrival: walk-in Limitations: no limitations History of Present Illness HPI narrative: pt presents with 3-4 weeks of waxing and waning upper respiratory congestion and chest congestion with persistent cough. This started after he sprayed some febreeze in a bathroom and accidentally inhaled some of it, causing him to vigorously cough. He had a short course of antibiotics and a few days of oral steroids prescribed by his PCP and initially seemed to do better. But the symptoms returned and he just cannot shake them . No fever or chills. He has home albuterol nebs he uses with mild improvement after use. No GI or symptoms. No recent travel or known ill exposures. he told me that his made him come to the ED today to be seen. Related Data Home Medications ?Medication ?Instructions ?Recorded ?Confirmed apixaban 5 mg tablet (Eliquis) 5 mg PO DAILY 10/09/24 10/09/24 atorvastatin 80 mg tablet 80 mg PO DAILY 10/09/24 10/09/24 diltiazem HCl 60 mg tablet 60 mg PO DAILY 10/09/24 10/09/24 donepezil 10 mg tablet 10 mg PO DAILY 10/09/24 10/09/24 fluticasone fur. 200 mcg-umeclid 1 inh inhalation Q24H 10/09/24 10/09/24 62.5 mcg-vilant 25 mcg inhalat.powder (Trelegy Ellipta) fluticasone propionate 50 2 spray intranasal DAILY 10/09/24 10/09/24 mcg/actuation nasal spray,suspension gabapentin 300 mg capsule 300 mg PO TID 10/09/24 10/09/24 glimepiride 2 mg tablet 2 mg PO BID 10/09/24 10/09/24 omega-3 acid ethyl esters 1 gram 2 cap PO BID 10/09/24 10/09/24 capsule omeprazole 20 mg capsule,delayed 20 mg PO DAILY 10/09/24 10/09/24 release primidone 50 mg tablet 100 mg PO BID 10/09/24 10/09/24 ramipril 10 mg capsule 10 mg PO DAILY 10/09/24 10/09/24 semaglutide 14 mg tablet (Rybelsus) 14 mg PO DAILY 10/09/24 10/09/24 sertraline 50 mg tablet 50 mg PO DAILY 10/09/24 10/09/24 sotalol 120 mg tablet 120 mg PO Q12H 10/09/24 10/09/24 trazodone 50 mg tablet 50 mg PO BEDTIME 10/09/24 10/09/24 Previous Rx's ?Medication ?Instructions ?Recorded [id number] 5 ml PO Q6H PRN cold symptoms #118 10/09/24 2 mg-30 mg-10 mg/5 mL oral syrup mL (Bromfed DM) doxycycline hyclate 100 mg capsule 100 mg PO BID 7 days #14 caps 10/09/24 methylprednisolone 4 mg tablets in 4 mg PO DAILY #21 ea 10/09/24 a dose pack (Medrol (Vicente)) Allergies Allergy/AdvReac Type Severity Reaction Status Date / Time No Known Drug Allergies Allergy Verified 10/09/24 14:47 Opioid HPI Opioid Management Most Recent Opioid Data: Last Pain Scale 3 03/27/24 11:38 03/27/24 PFSH PFSH Social History Little interest or pleasure in doing things: not at all Feeling down, depressed, or hopeless: not at all Exam Narrative Exam Narrative: Nurses notes and vital signs reviewed and patient is not hypoxic. afebrile General: Well-appearing and in no apparent distress. Skin: Warm, dry, no pallor noted. No rash. Head: Normocephalic, atraumatic. Neck: Supple, non-tender. No cervical lymphadenopathy Eye: Pupils are equal, round and EOMI. No scleral icterus. Ears, Nose, Mouth, and Throat: TM are clear, mild nasal mucosal hypertrophy, no posterior oropharynx erythema and uvula is mid-line but PND noted. Oral mucosa is moist Cardiovascular: Regular Rate and Rhythm without murmur, gallop or rub. Respiratory: No accessory muscle use or respiratory distress. Occasional cough. Lungs with scattered rhonchi but no wheezes or rales. Musculoskeletal: normal ROM, no calf or popliteal tenderness, no lower extremity edema/swelling GI: Abdomen is soft, non-distended. Normal bowel sounds. No tenderness to palpation. No rebound, guarding, or rigidity noted. Neurological: A&O x4. No cranial nerve dysfunction observed. No truncal ataxia. Moves all extremities. Sensation intact. Psychiatric: Cooperative and interactive. Normal mood and affect. Constitutional Vital Signs, click to edit/add: Last Vital Signs Temp 97.6 F 10/09/24 14:41 Pulse 64 10/09/24 14:41 Resp 20 10/09/24 14:41 BP 131/40 L 10/09/24 14:41 Pulse Ox 95 10/09/24 14:41 O2 Del Method Room Air 10/09/24 14:41 Course Vital Signs Vital signs: Vital Signs Temperature 97.6 F 10/09/24 14:41 Pulse Rate 64 10/09/24 14:41 Respiratory Rate 20 10/09/24 14:41 Blood Pressure 131/40 L 10/09/24 14:41 Pulse Oximetry 95 10/09/24 14:41 Oxygen Delivery Method Room Air 10/09/24 14:41 Temperature 97.6 F 10/09/24 14:41 Pulse Rate 64 10/09/24 14:41 Respiratory Rate 20 10/09/24 14:41 Blood Pressure 131/40 L 10/09/24 14:41 Pulse Oximetry 95 10/09/24 14:41 Oxygen Delivery Method Room Air 10/09/24 14:41 Medical Decision Making MDM Narrative Medical decision making narrative: Patient presents with a combination of upper respiratory infection findings as well as findings indicative of bronchitis. Due to the 3-week duration of his symptoms I am going to place him on antibiotics and a course of steroids. I discharged him home with prescriptions for doxycycline and Medrol Dosepak. He has plenty of albuterol nebulizer doses at home, he told me, as well as an albuterol metered-dose inhaler he can use when he leaves the house. Primary care physician follow-up was recommended. We discussed reasons to return to the emergency department occluding worsening shortness of breath, chest pain, syncope or other worrisome conditions. Discharge Plan Discharge Chief Complaint: Shortness of Breath/Dyspnea Clinical Impression: Acute infective exacerbation of chronic obstructive airway disease, Upper respiratory infection Patient Disposition: Home, Self-Care Time of Disposition Decision: 15:06 Prescriptions / Home Meds: New methylprednisolone [Medrol (Vicente)] 4 mg tablets,dose pack 4 mg PO DAILY Qty: 21 0RF [id number] [Bromfed DM] 2-30-10 mg/5 mL syrup 5 ml PO Q6H PRN (Reason: cold symptoms) Qty: 118 0RF doxycycline hyclate 100 mg capsule 100 mg PO BID 7 Days Qty: 14 0RF No Action Eliquis 5 mg tablet 5 mg PO DAILY atorvastatin 80 mg tablet 80 mg PO DAILY diltiazem HCl 60 mg tablet 60 mg PO DAILY donepezil 10 mg tablet 10 mg PO DAILY Trelegy Ellipta 200-62.5-25 mcg blister with device 1 inh INHALATION Q24H fluticasone propionate 50 mcg/actuation spray,suspension 2 spray INTRANASAL DAILY gabapentin 300 mg capsule 300 mg PO TID glimepiride 2 mg tablet 2 mg PO BID omega-3 acid ethyl esters 1 gram capsule 2 cap PO BID omeprazole 20 mg capsule,delayed release(DR/EC) 20 mg PO DAILY ramipril 10 mg capsule 10 mg PO DAILY sertraline 50 mg tablet 50 mg PO DAILY sotalol 120 mg tablet 120 mg PO Q12H trazodone 50 mg tablet 50 mg PO BEDTIME primidone 50 mg tablet 100 mg PO BID Rybelsus 14 mg tablet 14 mg PO DAILY Print Language: Portuguese Instructions: Upper Respiratory Infection (ED), Acute Bronchitis (ED), COPD (Chronic Obstructive Pulmonary Disease) (ED) Referrals: SHIMA KULKARNI [Primary Care Provider] - 1 week
== END 2024-10-09 15:42 | disposition home or self-care (01) ==
PROVIDERS: Emergency Provider Emergency Medicine
DX: J44.1 Chronic obstructive pulmonary disease with (acute) exacerbation (principal); J06.9 Acute upper respiratory infection, unspecified; R06.02 Shortness of breath
CPT/HCPCS: 99283

== ENCOUNTER 2024-11-01 10:30 | Outpatient (OUT) | payer MEDICARE, SELFPAY ==
[2024-11-01 10:55] LABS: Basophils Absolute Auto 0.1 10^3/uL (0.0-0.1); Basophils Percent Auto 0.6 % (0.2-2.0); Eosinophils Absolute Auto 0.5 10^3/uL (0.0-0.7); Eosinophils Percent Auto 4.5 % (0.9-7.0); Hemoglobin 14.7 g/dL (14.0-18.0); Immature Granulocytes Abs Auto 0.03 10^3/uL (0.00-0.03); Immature Granulocytes Pct Auto 0.3 % (0.0-0.5); Lymphocytes Absolute Auto 2.9 10^3/uL (1.2-3.8); Lymphocytes Percent Auto 27.6 % (20.5-60.0); Mean Corpuscular Hemoglobin 28.4 pg (25.9-34.0); Monocytes Absolute Auto 0.7 10^3/uL (0.3-0.8); Monocytes Percent Auto 6.8 % (1.7-12.0); Neutrophils Absolute Auto 6.2 10^3/uL (1.4-6.5); Neutrophils Percent Auto 60.2 % (43.0-75.0); Platelet Count 227 10^3/uL (150-450); Red Blood Count 5.17 10^6/uL (4.70-6.10); Red Cell Distribution Width 12.3 % (11.0-15.0); White Blood Count 10.3 10^3/uL (4.0-11.0)
--- NOTE | 2024-11-01 11:00 | XR_ITS ---
The [address] [address] Patient Name: SHARON GUO MRN: [id number] date: 1950 Sex: M Assigned Patient Location: LAB Current Patient Location: Accession/Order Number: [id number] Exam Date: 11/01/2024 10:53 Report Date: 11/02/2024 05:22 At the request of: SHIMA KULKARNI Procedure: XR chest 2V EXAMINATION: XR chest 2V HISTORY: Chronic Obstructive Pulmonary Disease COMPARISON: XR chest 09/15/2024 FINDINGS: LUNGS: No significant pulmonary parenchymal abnormalities. VASCULATURE: No increased pulmonary vasculature. PLEURA: No pneumothorax, effusion, or pleural thickening. CARDIAC: No cardiomegaly or cardiac silhouette abnormality. MEDIASTINUM: No visible mass or adenopathy. BONES: No fracture or visible bone lesion. OTHER: Negative. XR/XR chest 2V IMPRESSION: 1. No acute cardiopulmonary process or significant chronic interstitial changes. Stable chest. Electronically authenticated by: CODIE RICHTER Date: 11/02/2024 05:22
[2024-11-01 11:18] LABS: Alanine Aminotransferase 36 U/L (16-63); Albumin Globulin Ratio 0.9; Albumin Level 3.4 g/dL (3.4-5.0); Alkaline Phosphatase 73 U/L (46-116); Aspartate Amino Transferase 26 U/L (15-37); BUN Creatinine Ratio 14.4; Bilirubin Total 0.5 mg/dL (0.2-1.0); Calcium 8.9 mg/dL (8.5-10.1); Carbon Dioxide 29.2 mmol/L (21.0-32.0); Chloride 101 mmol/L (98-107); Estimated GFR (African America >60 (>=60 mL/min/1.73m^2); Estimated GFR (Non-African Ame 50 (>=60 mL/min/1.73m^2); Globulin 3.9 g/dL; Glucose 139 mg/dL (74-106); Potassium 4.2 mmol/L (3.5-5.1); Sodium 138 mmol/L (136-145); Total Protein 7.3 g/dL (6.4-8.2)
== END 2024-11-01 10:31 | disposition home or self-care (01) ==
LOC: LAB 10:31
DX: J44.9 Chronic obstructive pulmonary disease, unspecified (principal)
CPT/HCPCS: 36415; 71046; 80053; 85025

== ENCOUNTER 2024-11-15 11:27 | Outpatient (OUT) | payer MEDICARE, SELFPAY ==
--- NOTE | 2024-11-15 12:04 | CT_ITS ---
The [address] [address] Patient Name: SHARON GUO MRN: [id number] date: 1950 Sex: M Assigned Patient Location: LAB Current Patient Location: Accession/Order Number: [id number] Exam Date: 11/15/2024 11:55 Report Date: 11/16/2024 06:38 At the request of: FRANKIE SAENZ Procedure: CT chest high res EXAMINATION: CT chest high res HISTORY: Chronic cough, R05.3 COMPARISON: No relevant comparison available. TECHNIQUE: Axial images were obtained at 10 mm intervals during inspiration and expiration in the supine and prone positions. No IV contrast given. Dose reduction techniques were achieved by using automated exposure control and/or adjustment of mA and/or kV according to patient size and/or use of iterative reconstruction technique. FINDINGS: LUNGS: No visible pulmonary disease. PLEURA: No mass, effusion, or pneumothorax. PAIGE: No mass or adenopathy. MEDIASTINUM: No mass or adenopathy. HEART: No significant enlargement or pericardial effusion.. Coronary arteries: Areas of moderate to marked atherosclerotic disease. Suspect prior endovascular stenting within the LAD. AORTA: No aneurysm.. CHEST WALL: No mass or axillary adenopathy LIMITED ABDOMEN: Small nonobstructing stone within left kidney superior pole. Limited images of the upper abdomen. OTHER: Negative. CT/CT chest high res IMPRESSION: 1. No acute infiltrates or significant chronic interstitial changes to account for patient's symptoms. Electronically authenticated by: CODIE RICHTER Date: 11/16/2024 06:38
== END 2024-11-15 11:28 | disposition home or self-care (01) ==
LOC: LAB 11:29
PROVIDERS: Visit Provider Internal Medicine
DX: R05.3 Chronic cough (principal)
CPT/HCPCS: 36415; 71250; 86615

== ENCOUNTER 2025-05-10 10:08 | Outpatient (OUT) | payer MEDICARE, SELFPAY ==
--- OUTSIDE RECORDS SUMMARY | 2010-07-26 06:43 | XMS_ITS | Encounter Summary ---
Author Organization [facility] Address [address], [address] [place] [address] Care Team Providers Care Umbrella Frame Maker Name Role Phone Unavailable Primary Care Provider Unavailabl e Encounter Details Date Type Department Care Team (Late st Contact Info) Description 07/26/2010 6:43 AM EDT Hospital Encounter [facility] Department [address] [place] [address] Vee Wallace DO [address] [place] [address] Social History Tobacco Use Types Packs/Day Years Used Date Smoking Tobacco: Former Cigarettes 1 20 0 03/21/1990 - 03/21/2010 Smokeless Tobacco: Never Alcohol Use Standard Drinks/Week Comments No 0 (1 standard drink = 0.6 oz pur e alcohol) AUDIT-C Answer Date Recorded Q1: How often do you have a drink containing alc ohol? Never 03/20/2022 Average Number of Drinks Not on file 022 Q3: How often do you have si x or more drinks on one occasion? Never 03/20/2022 Overall Financial Resource Strain (CARDIA) Answe r Date Recorded How hard is it for you to pa y for the very basics like food, housing, medical care, and heating? Not hard at all 07/05/2022 PHQ-2 Answer Date Recorded PHQ-9 Total Score 2 03/20/2022 Exercise Vital Sign Answer Date Recorde d On average, how many days pe r week do you engage in moderate to strenuous exercise (like a brisk walk)? 0 days 03/20/2022 On average, how many minutes do you engage in exercise at this level? 0 min 03/20/2022 Hunger Vital Sign Answer Date Recorded Within the past 12 months, y ou worried that your food would run out before you got the money to buy more. Never true 07/05/20 22 Within the past 12 months, t he food you bought just didn't last and you didn't have money to get more. Never true 07/05/2022 Sex and Gender Information Value Date Recorded Sex Assigned at Not on file Legal Sex Male 12:36 PM EST Gender Identity Not on file Sexual Orientation Not on file COVID-19 Exposure Response Date Recorded In the last 10 days, have yo u been in contact with someone who was confirmed or suspected to have Coronavirus/COVID-19? No / Unsure 04/11/2022 3:38 PM EDT documented as of this encounter Functional Status documented as of this encounter Plan of Treatment Upcoming Encounters Date Type Department Care Team (Late st Contact Info) Description 10/20/2025 9:00 AM EST Office Visit [facility] Part of [address] [place] [address] Castillo Clark MD [address] [place] [address] [address] [place] [address] 6 month follow up/ Essential Tremors documented as of this encounter Visit Diagnoses Not on filedocumented in this encounter Additional Health Concerns Infection Onset Date Last Indicated Resolved Time COVID-19 (Rule Out) 07/19/2021 07/19/2021 07/20/20 21 1:10 PM EDT documented as of this encounter
--- OUTSIDE RECORDS SUMMARY | 2010-10-06 01:12 | XMS_ITS | Encounter Summary ---
Author Organization [facility] Address [address], [address] [place] [address] Care Team Providers Care Wire Lather Name Role Phone Unavailable Primary Care Provider Unavailabl e Encounter Details Date Type Department Care Team (Late st Contact Info) Description 10/06/2010 12:12 AM EST Hospital Encounter [facility] Department [address] [place], [place] [id number] Reyes Rashid MD [address] [phone] Social History Tobacco Use Types Packs/Day Years [...] Description 10/20/2025 9:00 AM EST Office Visit [facility] Part of [address] [place] [address] Castillo Clark MD [address] [place] [address] [address] [place] [address] 6 month follow up/ Essential Tremors documented as of this encounter Visit Diagnoses Not on filedocumented in this encounter Additional Health Concerns Infection Onset Date Last Indicated Resolved Time COVID-19 (Rule Out) 07/19/2021 07/19/2021 07/20/20 21 1:10 PM EDT documented as of this encounter
--- OUTSIDE RECORDS SUMMARY | 2014-05-17 12:45 | XMS_ITS | Encounter Summary ---
Author Organization [facility] Address [address], [address] [place] [address] Care Team Providers Care Business Analysis Analyst Name Role Phone Isaias Tipton DO Primary Care Provider [phone] Encounter Details Date Type Department Care Team (Late st Contact Info) Description 05/17/2014 12:45 PM EDT Hospital Encounter [facility] [address] [place] [address] Reyes Rashid MD [address] [place] [address] Dangelo Jennings V Social History Tobacco Use Types Packs/Day Years [...] Description 10/20/2025 9:00 AM EST Office Visit [facility] Part of [address] [place] [address] Castillo Clark MD [address] [place] [address] [address] [place] [address] 6 month follow up/ Essential Tremors documented as of this encounter Procedures Procedure Name Priority Date/Time Associated Diagnosis Comments ECHO REPORT 10/31/2014 1:39 PM EST documented in this encounter Results * CARDIAC REHAB REPORT (10/31/2014 1:39 PM EST) us Hpf Scanning CARDIAC REHAB ORDERABLES Final R esult documented in this encounter Visit Diagnoses Not on filedocumented in this encounter Additional Health Concerns Infection Onset Date Last Indicated Resolved Time COVID-19 (Rule Out) 07/19/2021 07/19/2021 07/20/20 21 1:10 PM EDT documented as of this encounter Care Teams Business Analysis Analyst Relationship Specialty Start Date End Date Isaias Tipton DO PCP - General 05/03/14 03/13/15 documented as of this encounter
--- OUTSIDE RECORDS SUMMARY | 2015-04-24 10:00 | XMS_ITS | Encounter Summary ---
Author Organization [facility] Address [address], [address] [place] [address] Care Team Providers Care Certified Medical Aide Name Role Phone Isaias Tipton DO Primary Care Provider [phone] Encounter Details Date Type Department Care Team (Late st Contact Info) Description 04/24/2015 10:00 AM EDT Hospital Encounter [facility] Diet and Nutrition [address] [place] [address] Isaias Tipton DO [address] [place] [id number] Social History Tobacco Use Types Packs/Day Years [...] Functional Status documented as of this encounter Progress Notes * Andrea David RD, LD - 04/24/2015 10:56 AM EDT This is a notice of failure to show for a medical nutrition therapy appointment. Femi Rinaldi Latanya had an appointment with the dietitian this date, but did not show, cancel or reschedule before the appointment time. If an appointment is still desired, please contact centralized scheduling. Thank you for the referral. documented in this encounter Plan of Treatment Upcoming Encounters Date Type Department Care Team (Late st Contact Info) Description 10/20/2025 9:00 AM EST Office Visit [facility] NEUROLOG[facility] Part of [address] [place] [address] Castillo Clark MD [address] [place] [address] [address] [place] [address] 6 month follow up/ Essential Tremors documented as of this encounter Visit Diagnoses Not on filedocumented in this encounter Additional Health Concerns Infection Onset Date Last Indicated Resolved Time COVID-19 (Rule Out) 07/19/2021 07/19/2021 07/20/20 21 1:10 PM EDT documented as of this encounter Care Teams Certified Medical Aide Relationship Specialty Start Date End Date Isaias Tipton DO PCP - General 04/12/15 02/27/18 documented as of this encounter
--- OUTSIDE RECORDS SUMMARY | 2024-11-16 09:00 | XMS_ITS ---
Author Organization [facility] in [place] Address [address] [place] [place] [address] Care Team Providers Care Caregivers Homecare Name Role Phone SHIMA GLASER Primary Care Provide r Unavailable Juni Lee Unavailable [phone] Allergies No Known Allergies REASON FOR VISIT 1 YEAR-JAKUB Medications Medication SIG (Take, Route, Frequency, Duration) Notes Start Date End Date Status Rybelsus 14 MG TAKE 1 TABLET BY VEELINE TH EVERY DAY Oral for 90 Days Active Breztri Aerosphere 160-9-4.8 MCG/ACT 2 puffs Inhalation BID for 90 days Rinse after use 11/03/2024 Active traZODone HCl 50 MG TAKE 1 TABLET BY EVELINE TH NIGHTLY Oral for 90 Days Active Sotalol HCl 120 MG TAKE 1 TABLET (120 M G) BY MOUTH IN THE MORNING AND AT BEDTIME. Oral for 90 Days Active Sertraline HCl 50 MG Oral for 90 Days Active Ramipril 10 MG TAKE 1 CAPSULE BY MO UTH EVERY DAY Oral for 100 Days Active Primidone 50 MG TAKE 3 TABLETS BY MO UTH DAILY Oral for 90 Days Active Omeprazole 20 MG Oral for 100 Days Active Ipratropium-Albuterol 0.5-2.5 (3) MG/3ML 3 mL as needed Inhalation every 6 hrs 11/03/2024 Active dilTIAZem HCl 30 MG TAKE 1 TABLET BY EVELINE TH TWICE A DAY Oral for 90 days Active Glimepiride 2 MG TAKE 1 TABLET BY EVELINE TH EVERY DAY BEFORE BREAKFAST Oral for 90 Days Active Fluticasone Propionate 50 MCG/ACT Nasal for 30 Days Active Eliquis 5 MG TAKE 1 TABLET BY EVELINE TH IN THE MORNING AND AT BEDTIME Oral for 90 Days Active Donepezil HCl 10 MG Oral for 90 Days Active Atorvastatin Calcium 80 MG TAKE 1 TABLET BY MOUTH EVERY DAY Oral for 100 Days Active Albuterol Sulfate HFA 108 (90 Base) MCG/ACT 2 puffs as needed Inhalation every 4 hrs Active Albuterol Sulfate (2.5 MG/3ML) 0.083% 3 mL as needed Inhalation every 6 hrs Active Social History Tobacco Use: Social History Observation Description Date Details (start date - stop date) Former Smoker NA - NA Tobacco Control (Standard) Question Answer Notes Tobacco use: Former smoker How long has it been since y ou last smoked? 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) Active confirmed Vital Signs Weight 264.8 lbs 11/16/2024 Height 68 in 11/16/2024 Blood pressure systolic 123 mm Hg 11/16/19 25 Blood pressure diastolic 74 mm Hg 025 Temperature 96.9 degrees Fahrenheit 11/16/19 25 Heart Rate 63 /min 11/16/2024 Respiratory Rate 18 /min 11/16/2024 BMI 40.26 kg/m2 11/16/2024 Oximetry 97 % 11/16/2024 Encounters Encounter Location Date Provider Diagnosis Pulmonary Medicine [address] [place] [address] 11/16/2024 Juni Lee Centrilobular emphys micah J43.2 ; Peripheral eosinophilia D72.19 ; Morbid (severe) obesity due to excess calories E66.01 ; JAKUB (obstructive sleep apnea) G47.33 ; DM2 (diabetes mellitus, type 2) E11.9 ; History of tobacco abuse Z87.891 and retirement (current) use of inhaled steroids Z79.51 Assessments Encounter Date Diagnosis (ICD Code) Assessment Notes Treatment Notes Treatment Clinical Notes Section Notes 11/16/2024 Centrilobular emphysema (ICD-10 - J43.2) Patient has become more symptomatic over the last year. He was on Trelegy, but changed to Breztri 2 weeks ago due to worsening symptoms. He states the Breztri has helped to relieve his dyspnea and coughing. He feels much better on it and feels he can take a better inhalation with Breztri opposed to Trelegy. He voiced he wants to stay on Trelegy. Prescription was sent to his pharmacy. Now that he is having more issues with his COPD, recommended following up in 6 months for closer monitoring. Patient voiced he would like that. 11/16/2024 Peripheral eosinophilia (ICD-10 - D72.19) Eosinophils: -11/01/2024: 4.5% / 500 -06/24/2024: 5.7% / 400 -01/01/2024: 5.6% / 500 -10/07/2023: 12.1% / 1000 -05/15/2023: 5% / 500 Discussed with patient that if he continues to worsen despite Breztri, he would be a Dupixent candidate due to his elevated eosinophils. Explained that we are not at the point that he requires Biologics, butI did give him a pamphlet on Dupixent just in case. 11/16/2024 Morbid (severe) obesity due to excess calories (ICD-10 - E66.01) Patient's weight is inducing a restrictive pulmonary physiology. Weight loss indicated: Decrease calories, increase activity. 11/16/2024 JAKUB (obstructive sleep apnea) (ICD-10 - G47.33) Iqsl-fn-vfwr encounter performed with the patient to document continued need for PAP therapy. -PS04/07/2018; AHI: 77.8 -DME: [facility]-Compliance was reviewed from 10/15/2024 - 11/13/2024-Total days used: 3030 (100%)-Total of all days >4 hours of use: 30/30 (100%)-Current model, mode, & pressure: G3 Auto-CPAP [id number] -Average pressure: 7.0xhK9Q-Wggwttrx AHI: 3.5 -Average leak: 13.8L/min-Mask/tyler ness fitting: Did not like the new nasal pillows-Sleep quality: Improved with CPAP use-Daytime hypersomnolence: Decreased with CPAP use-Recommendation s: Patient continues to exhibit superb compliance with CPAP. He voices no complaints today. Will continue at current settings.-Note: This ggeu-lu-swxl visit comes with my authorization that the patient's DME may request to renew, reorder, and/or replace tubing, supplies, mask, and/or PAP device (if applicable). 11/16/2024 DM2 (diabetes mellitus, type 2) (ICD-10 - E11.9) Steroids prescribed for this patient's underlying pulmonary disease can adversely affect blood glucose levels, inducing hyperglycemia and worsening underlying diabetes. The patient is encouraged to follow up with the primary care provider to create a plan to manage diabetes in this situation. 11/16/2024 History of tobacco abuse (ICD-10 - Z87.891) 1ppd x 45 years, quit 2004 1ppd x 45 years, quit 2004. This patient does not meet current LDCT criteria (e.g. age, time from cessation, # pack-years). 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 Plan Of Treatment Medication Medication Name Sig Start Date Stop Date Notes Breztri Aerosphere 160-9-4.8 MCG/ACT 2 puffs Inhalation BID for 90 days 11/03/2024 Treatment Notes Assessment Notes Centrilobular emphysema Patient has become more symptomatic over the last year. He was on Trelegy, but changed to Breztri 2 weeks ago due to worsening symptoms. He states the Breztri has helped to relieve his dyspnea and coughing. He feels much better on it and feels he can take a better inhalation with Breztri opposed to Trelegy. He voiced he wants to stay on Trelegy. Prescription was sent to his pharmacy. Now that he is having more issues with his COPD, recommended following up in 6 months for closer monitoring. Patient voiced he would like that. Peripheral eosinophilia Eosinophils: -11/01/2024: 4.5% / 500 -06/24/2024: 5.7% / 400 -01/01/2024: 5.6% / 500 -10/07/2023: 12.1% / 1000 -05/15/2023: 5% / 500 Discussed with patient that if he continues to worsen despite Breztri, he would be a Dupixent candidate due to his elevated eosinophils. Explained that we are not at the point that he requires Biologics, butI did give him a pamphlet on Dupixent just in case. Morbid (severe) obesity due to excess calories Patient's weight is inducing a restrictive pulmonary physiology. Weight loss indicated: Decrease calories, increase activity. JAKUB (obstructive sleep apnea) Imof-ag-thfv encounter performed with the patient to document continued need for PAP therapy. -PS04/07/2018; AHI: 77.8 -DME: [employer]-Compliance was reviewed from 10/15/2024 - 11/13/2024-Total days used: (100%)-Total of all days >4 hours of use: 30 (100%)-Current model, mode, & pressure: G3 Auto-CPAP [id number] -Average pressure: 7.9eyN9U-Ifyxrski AHI: 3.5 -Average leak: 13.8L/min-Mask/harness fitting: Did not like the new nasal pillows-Sleep quality: Improved with CPAP use-Daytime hypersomnolence: Decreased with CPAP use-Recommendations: Patient continues to exhibit superb compliance with CPAP. He voices no complaints today. Will continue at current settings.-Note: This rteo-bj-pbau visit comes with my authorization that the patient's DME may request to renew, reorder, and/or replace tubing, supplies, mask, and/or PAP device (if applicable). DM2 (diabetes mellitus, type 2) Steroids prescribed for this patient's underlying pulmonary disease can adversely affect blood glucose levels, inducing hyperglycemia and worsening underlying diabetes. The patient is encouraged to follow up with the primary care provider to create a plan to manage diabetes in this situation. History of tobacco abuse 1ppd x 45 years, quit 2004. This patient does not meet current LDCT criteria (e.g. age, time from cessation, # pack-years). 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 Next Appt Details Follow Up: 6 Months, Reason: COPD Procedure Notes * Category Sub-Category Detail Notes PFT Data: 07/11/2023 -TB-F EV1/FVC: 77%-FEV1: 86%-FVC: 82%-No bronchodilator administered-RV: 98%-T%-DLCO: 80%-Flow-volume loop: Trend towards mild restriction03/29/2019 - [place]-FEV1/FVC: 74%-FEV1: 87%-FVC: 78%-Bronchodilator response: None-RV: 136%-T%-DLCO: 89%-Flow-volume loop: Mild restriction Progress Notes * Femi PELAEZ WDOB: (74 yo M)Acc No.[id number]:11/16/2024 Follow Up Patient: Femi ZARATE Provider: Destinee Lee DO :1950 A ge:74 Y S ex:Male Date:11/16/2024 Address:[address] [place], [place] [id number] Pcp:KAY TRIPLETT Check In:12:56 PM ESTCheck O ut:01:33 PM EST Subjective: * Chief Complaints: * 1 YEAR-JAKUB * HPI: E pworth Sleepiness Scale: The patient is here for his annual CPAP compliance visit. He once again exhibits support compliance with 100% use within 30-day period for > 4 hours. He voices no issues regarding the pressure, mask fitting, air leak, or other complaints. He is sleeping well at night and has decreased hypersomnolence during the day, but still feels tired at times. Overall, he is very happy with his management and does not feel he requires any changes today. Patient was seen several weeks ago for worsening cough. He was given prednisone and Breztri. He states that Breztri is much better than Trelegy; he is tolerating it better and he feels that there is more relief of his dyspnea. Denies any adverse effects. He feels near back to normal. He had HRCT done yesterday (11/15/2024) and was unremarkable for any pulmonary disease. Pertussis labs were also drawn yesterday, but those are send outs and are still pending. MA Intake Comments:. Lankin Sleepiness Scale C berta of dozing while sitting and reading:?2 - Moderate Chance C berta of dozing while watching TV: 3 - High Chance C berta of dozing while sitting in a public place: 0 - Never C berta of dozing as a passenger in a car for an hour without a break: 1 - Slight Chance C berta of dozing while lying down in the afternoon to rest: 3 - High Chance C berta of dozing while sitting and talking to someone: 0 - Never C berta of dozing while sitting quietly after lunch: 2 - Moderate Chance C berta of dozing in a stopped car for a few minutes in traffic: 0 - Never T OTAL SCORE: 1 1 Patient presents for a follow-up for JAKUB. DME:[facility]. Patient is compliant with PAP. Patient reports great benefit and denies any issues with his machine/mask. Patient recently had his CT Chest performed on 11/15/2024.Patient states he is doing much better than his last visit. Patient is under the care of [facility] Cardiology. * ROS: G eneral/Constitutional: Fever or sweats d enies. C hange of appetite d enies. C hills d enies. W eight Change d enies. H EENT: Dry mouth d enies. S ore throat d enies. O ral Ulcers d enies. P ost Nasal Drip D enies. C ongestion D enies. H oarseness?Denies. C ardiovascular: Tachycardia d enies. C hest pain d enies. P alpitations d enies. R espiratory: Pleurisy D enies. D yspnea w ith activity. C ough d enies. H emoptysis d enies. W heezing d enies. G astrointestinal: Acid Reflux/GERD/Heartburn d enies. D ysphagia d enies. M usculoskeletal: Arthralgias/joint pain D enies. S kin: Easy bruising d enies. R matti d enies. ? N eurologic: Seizures d enies. T remor d enies. H ematology: Abnormal Bleeding d enies. P sychiatric: Anxiety d enies. * Active Problem List J43.2 Centrilobular emphys micah Modified On:11/18/2023W/U Status:confirmed G47.33 JAKUB (obstructive sle ep apnea) Modified On:11/18/2023 Status:confirmed E11.9 DM2 (diabetes [facility], type 2) Modified On:11/18/2023 Status:confirmed Z87.891 History of tobacco a buse Modified On:11/18/2023 Status:confirmed D72.19 Peripheral eosinophi juan carlos Modified On:11/03/2024U Status:confirmed J44.9 COPD (chronic obstru ctive pulmonary disease) Modified On:08/06/2023 Status:confirmed E66.01 Morbid (severe) obes ity due to excess calories Modified On:11/18/2023 Status:confirmed Z68.41 Body mass index [BMI ] 40.0-44.9, adult Modified On:11/18/2023 Status:confirmed 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 M aternal Grandfather: diagnosed with Diabetes mellitus without mention of complication, type II or unspecified type, not stated as uncontrolled, Unspecified heart disease. Maternal Grandmother: diagnosed with Diabetes mellitus without mention of complication, type II or unspecified type, not stated as uncontrolled, Unspecified heart disease. * Social History: T obacco Use: T obacco Control (Standard) T obacco use: F ormer smoker H ow long has it been since you last smoked??Greater than 10 years A dditional Findings: Tobacco non-user E x-heavy cigarette smoker (20-30/day) Electronic Cigarette use C urrent user N o LM: Additional Tobacco Questions N umber of Years Pt Smoked: 4 5 N umber of Packs per Day: 1 When did you stop smokin. 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 D rugs/Alcohol: D rugs H ave you used drugs other than those for medical reasons in the past 12 months? N o D oes the Patient have a History of Drug Abuse in the Past? N o Caffeine I ntake: n one Do you drink alcohol?: No. Do you smoke marijuana?: Denies. * Medications: T akingAlbuterol Sulfate (2.5 MG/3ML) 0.083% Nebulization Solution 3 mL as needed Inhalation every 6 hrs Albuterol Sulfate HFA 108 (90 Base) MCG/ACT Aerosol Solution 2 puffs as needed Inhalation every 4 hrs Atorvastatin Calcium 80 MG Tablet TAKE 1 TABLET BY MOUTH EVERY DAY Oral Breztri Aerosphere(Beluhqb-Tlavvxvimmq-Vrqesehnox) 160-9-4.8 MCG/ACT Aerosol 2 puffs Inhalation BID Rinse after usedilTIAZem HCl 30 MG Tablet TAKE 1 TABLET BY MOUTH TWICE A DAY Oral Donepezil HCl 10 MG Tablet Oral Eliquis(Apixaban) 5 MG Tablet TAKE 1 TABLET BY MOUTH IN THE MORNING AND AT BEDTIME Oral Fluticasone Propionate 50 MCG/ACT Suspension Nasal Glimepiride 2 MG Tablet TAKE 1 TABLET BY MOUTH EVERY DAY BEFORE BREAKFAST Oral Ipratropium-Albuterol 0.5-2.5 (3) MG/3ML Solution 3 mL as needed Inhalation every 6 hrs Omeprazole 20 MG Capsule Delayed Release Oral Primidone 50 MG Tablet TAKE 3 TABLETS BY MOUTH DAILY Oral Ramipril 10 MG Capsule TAKE 1 CAPSULE BY MOUTH EVERY DAY Oral Rybelsus(Semaglutide) 14 MG Tablet TAKE 1 TABLET BY MOUTH EVERY DAY Oral Sertraline HCl 50 MG Tablet Oral Sotalol HCl 120 MG Tablet TAKE 1 TABLET (120 MG) BY MOUTH IN THE MORNING AND AT BEDTIME. Oral traZODone HCl 50 MG Tablet TAKE 1 TABLET BY MOUTH NIGHTLY Oral Taking Albuterol Sulfate (2.5 MG/3ML) 0.083% Nebulization Solution 3 mL as needed Inhalation every 6 hrs Taking Albuterol Sulfate HFA 108 (90 Base) MCG/ACT Aerosol Solution 2 puffs as needed Inhalation every 4 hrs Taking Atorvastatin Calcium 80 MG Tablet TAKE 1 TABLET BY MOUTH EVERY DAY Oral Taking Breztri Aerosphere(Mbpchwy-Enuagaqebuv-Nyfpftptnj) 160-9-4.8 MCG/ACT Aerosol 2 puffs Inhalation BID Rinse after useTaking dilTIAZem HCl 30 MG Tablet TAKE 1 TABLET BY MOUTH TWICE A DAY Oral Taking Donepezil HCl 10 MG Tablet Oral Taking Eliquis(Apixaban) 5 MG Tablet TAKE 1 TABLET BY MOUTH IN THE MORNING AND AT BEDTIME Oral Taking Fluticasone Propionate 50 MCG/ACT Suspension Nasal Taking Glimepiride 2 MG Tablet TAKE 1 TABLET BY MOUTH EVERY DAY BEFORE BREAKFAST Oral Taking Ipratropium-Albuterol 0.5-2.5 (3) MG/3ML Solution 3 mL as needed Inhalation every 6 hrs Taking Omeprazole 20 MG Capsule Delayed Release Oral Taking Primidone 50 MG Tablet TAKE 3 TABLETS BY MOUTH DAILY Oral Taking Ramipril 10 MG Capsule TAKE 1 CAPSULE BY MOUTH EVERY DAY Oral Taking Rybelsus(Semaglutide) 14 MG Tablet TAKE 1 TABLET BY MOUTH EVERY DAY Oral Taking Sertraline HCl 50 MG Tablet Oral Taking Sotalol HCl 120 MG Tablet TAKE 1 TABLET (120 MG) BY MOUTH IN THE MORNING AND AT BEDTIME. Oral Taking traZODone HCl 50 MG Tablet TAKE 1 TABLET BY MOUTH NIGHTLY Oral DiscontinuedpredniSONE 20 MG Tablet 3 tabs x 3 days, 2 tabs x 3 days, 1 tab x 3 days Orally Once a day Medication List reviewed and reconciled with the patientDiscontinued predniSONE 20 MG Tablet 3 tabs x 3 days, 2 tabs x 3 days, 1 tab x 3 days Orally Once a day Medication List reviewed and reconciled with the patient * Allergies: N .K.D.A.no[Allergies Verified] Objective: * Vitals: W t:264.8lbs, Ht: 68 in, BP:sittin/74mm Hg, Temp:Forehead:96.9F, HR:63/min, RR:18/min, BMI:40.26Index, Oxygen sat %:Room Air:97%, Ht-cm: 172.72 cm, Wt-k.11 kg. * Examination: E xam: GENERAL APPEARANCE: P atient appears well today. N o coughing. Skin N ormal. Mouth P ink and moist. No candidiasis. Oropharynx M allampati Class III. Macroglossia. Tongue ridging. Trachea M idline. Chest N ormal. Respiratory Normal M ovements, E ffort N ormal. Auscultation G ood breath sounds today. T hey are clear. N o wheezes, crackles, or rhonchi. Cardiac R egular rate and rhythm. Gastrointestinal C entral adiposity. Vascular N o edema. Musculoskeletal N ormal posture. Neurological F ocal, intact. Psychiatric A lert and oriented x3. Mentation/Cognition N ormal. Assessment: * Assessment: 1. O SA (obstructive sleep apnea) - G47.33 (Primary) 2 . C entrilobular emphysema - J43.2 3 . P eripheral eosinophilia - D72.19 4 . M orbid (severe) obesity due to excess calories - E66.01 5 . D M2 (diabetes mellitus, type 2) - E11.9 6 . H istory of tobacco abuse - Z87.891 N otes :1ppd x 45 years, quit 2004 7 . L mahendra term (current) use of inhaled steroids - Z79.51 Plan: * Treatment: 2. C entrilobular emphysema Refill Breztri Aerosphere Aerosol, 160-9-4.8 MCG/ACT, 2 puffs, Inhalation, BID Rinse after use, 90 days, 3 ea, Refills 4. Notes: Patient has become more symptomatic over the last year. He was on Trelegy, but changed to Breztri 2 weeks ago due to worsening symptoms. He states the Breztri has helped to relieve his dyspnea and coughing. He feels much better on it and feels he can take a better inhalation with Breztri opposed to Trelegy. He voiced he wants to stay on Trelegy. Prescription was sent to his pharmacy. Now that he is having more issues with his COPD, recommended following up in 6 months for closer monitoring. Patient voiced he would like that. 3. P eripheral eosinophilia Notes: Eosinophils: -11/01/2024: 4.5% / 500 -06/24/2024: 5.7% / 400 -01/01/2024: 5.6% / 500 -10/07/2023: 12.1% / 1000 -05/15/2023: 5% / 500 Discussed with patient that if he continues to worsen despite Breztri, he would be a Dupixent candidate due to his elevated eosinophils. Explained that we are not at the point that he requires Biologics, butI did give him a pamphlet on Dupixent just in case. 4. M orbid (severe) obesity due to excess calories Notes: Patient's weight is inducing a restrictive pulmonary physiology. Weight loss indicated: Decrease calories, increase activity. 5. D M2 (diabetes mellitus, type 2) Notes: Steroids prescribed for this patient's underlying pulmonary disease can adversely affect blood glucose levels, inducing hyperglycemia and worsening underlying diabetes. The patient is encouraged to follow up with the primary care provider to create a plan to manage diabetes in this situation. ? 6. H istory of tobacco abuse Notes: 1ppd x 45 years, quit 2004. This patient does not meet current LDCT criteria (e.g. age, time from cessation, # pack-years).? 7. L mahendra term (current) use of inhaled steroids Notes: Patient was counseled to rinse & gargle with water after inhaled corticosteroid use. * Procedures: P FT: Data: 07/11/2023 -[facility] -FEV1/FVC: 77% -FEV1: 86% -FVC: 82% -No bronchodilator administered -RV: 98% -T% -DLCO: 80% -Flow-volume loop: Trend towards mild restriction 03/29/2019 - [place] -FEV1/FVC: 74% -FEV1: 87% -FVC: 78% -Bronchodilator response: None -RV: 136% -T% -DLCO: 89% -Flow-volume loop: Mild restriction. * Procedure Codes: * Preventive Medicine: COVID Vaccination: H as patient had COVID Vaccination? COVID Vaccination Y es 06/29/2021 Immunization Status: P neumovacc p neumovacc 23-07/05/2019. I nfluenza 0 07/05/2019. Z ostivax 0 06/03/2023. B oostrix U nknown. Screenings/Counseling: F ALL RISK SCREENING Fall Risk Assessment: N o falls in the past year Are you afraid of falling? N o T OBACCO ACTION PLAN Patient counselled on the dangers of tobacco use and urged to quit. 0 11/16/2024 Former Education on smoking effects provided?11/16/2024 Former F LUIS FERNANDO EXCLUSION Reason: P atient Reason refused/declined Type of Patient Reason: D rug declined by patient B MA ACTION PLAN Above Normal BMI Follow-up D ietary management education, guidance, and counseling * Follow Up: 6 Months (Reason: COPD) * * Sign off status: Completed Visit Status: C HK (Check Out) true * Provider: Destinee Lee DO Date: 0 11/16/2024 Generated for Printlaura law/Faelviag/eTransmitting on: 0 05/10/2025 10:12 AM EDT History and Physical Notes * HPI (History of Present Illness) Category Sub-Category Detail Notes Category Not es Lankin Sleepiness Scale Lankin Sleepiness Scale Chance of dozing while sitting and reading:: 2 - Moderate Chance Patient presents for a follow-up for JAKUB. DME:[facility]. Patient is compliant with PAP. Patient reports great benefit and denies any issues with his machine/mask. Patient recently had his CT Chest performed on 11/15/2024.Patient states he is doing much better than his last visit. Patient is under the care of [facility] Cardiology. Chance of dozing while watching TV:: 3 - High Chance Chance of dozing while sitting in a publ ic place:: 0 - Never Chance of dozing as a passen velma in a car for an hour without a break:: 1 - Slight Chance Chance of dozing while lying down in the afternoon to rest:: 3 - High Chance Chance of dozing while sitting and talki ng to someone:: 0 - Never Chance of dozing while sitting quietly a fter lunch:: 2 - Moderate Chance Chance of dozing in a stopped car for a few minutes in traffic:: 0 - Never TOTAL SCORE:: 11 Examination Category Sub-Category Detail Notes Category Not es Exam GENERAL APPEARANCE: Patient appears well today. No coughing Skin Normal Mouth [place] and moist. No c andidiasis Trachea Midline Chest Normal Respiratory Normal Movements, Ef fort Normal Auscultation Good breath sounds t santiago. They are clear. No wheezes, crackles, or rhonchi Cardiac Regular rate and rhy thm Gastrointestinal Central adiposity Vascular No edema Musculoskeletal Normal posture Neurological Focal, intact Psychiatric Alert and oriented x 3 Mentation/Cognition Normal Oropharynx Mallampati Class III . Macroglossia. Tongue ridging
--- OUTSIDE RECORDS SUMMARY | 2025-05-03 09:58 | XMS_ITS ---
Author Organization [facility] [place] Address [address] [place] [address] Care Team Providers Care Nursing Aide Name Role Phone SHAD ORDOÑEZ-SHIMA Silva Primary Care Provide r Juni Sanchez [phone] REASON FOR VISIT Letter/Appointment Encounters Encounter Location Date Provider Diagnosis Pulmonary Medicine [place] [address] [place] [address] 05/03/2025 Juni Lee Plan Of Treatment No Information Progress Notes * Femi PELAEZ WDOB: (74 yo M)Acc No.[id number]:05/03/2025 Patient: Femi ZARATE Nimco :1950 A ge:74 Y S ex:Male Address:[address] [place] [id number] * true * Date: Generated for Lorrii thanh/Faelviag/eTransmitting on: 0 05/10/2025 10:12 AM EDT
--- OUTSIDE RECORDS SUMMARY | 2025-05-10 10:13 | XMS_ITS | Encounter Summary ---
Author Organization Misael Cason [facility] 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 [address] [place] [phone] Reyes Rashid MD [address] [place] [address] Other Social History Tobacco Use Types Packs/Day Years Used Date Smoking Tobacco: Former Sex and Gender Information Value Date Recorded Sex Assigned at Not on file Legal Sex Male 12:36 PM EST Gender Identity Not on file Sexual Orientation Not on file documented as of this encounter Plan of Treatment Upcoming Encounters Date Type Department Care Team (Late st Contact Info) Description 10/20/2025 9:00 AM EST Office Visit [facility] Part of [address] [place] [phone] Castillo Clark MD [address] [place] [address] Dr [address] [place] [id number] 6 month follow up/ Essential Tremors documented as of this encounter Visit Diagnoses Not on filedocumented in this encounter Additional Health Concerns Infection Onset Date Last Indicated Resolved Time COVID-19 (Rule Out) 07/19/2021 07/19/2021 07/20/20 21 1:10 PM EDT documented as of this encounter Care Teams Processing Talc And Borate Supervisor Relationship Specialty Start Date End Date Shaikh Mcnally MD PCP - General 10/01/22 documented as of this encounter
--- OUTSIDE RECORDS SUMMARY | 2025-05-10 10:13 | XMS_ITS | Encounter Summary ---
Author Organization [facility] Address [address] [place] [address] Care Team Providers Care Licensed Land Surveyor Name Role Phone Demetrio Lowry MD Primary Care Provider [phone] Reason for Visit * Reason Comments Med Refill Encounter Details Date Type Department Care Team ([facility] st Contact Info) Description 05/06/2025 Refill [facility] [address] [place] [address] Demetrio Lowry MD [address] [place] [phone] Diabetic polyneuropathy associated with type 2 diabetes mellitus (HCC) Social History Tobacco Use Types Packs/Day Years Used Date Smoking Tobacco: Former Cigarettes Passive Smoke Exposure: Past Smokeless Tobacco: Never Alcohol Use Standard Drinks/Week Comments Not Currently 0 (1 standard drink = 0.6 oz pur e alcohol) B1300 Health Literacy Answer Date Recor ded How often do you need to hav e someone help you when you read instructions, pamphlets, or other written material from your doctor or pharmacy? Never 12/13/2024 Humiliation, Afraid, Rape, and Kick questionnair e Answer Date Recorded Within the last year, have y ou been afraid of your partner or ex-partner? No 2023 Within the last year, have y ou been humiliated or emotionally abused in other ways by your partner or ex-partner? No Within the last year, have y ou been kicked, hit, slapped, or otherwise physically hurt by your partner or ex-partner? No 2023 Within the last year, have y ou been raped or forced to have any kind of sexual activity by your partner or ex-partner? No 2023 Social Connection and Isolat ion Panel [NHANES] Answer Date Recorded In a typical week, how many times do you talk on the phone with family, friends, or neighbors? More than three times a week 12/13/2024 How often do you get togethe r with friends or relatives? More than three times a week 12/13/2024 How often do you attend chur ch or moravian services? Never 12/13/2024 Do you belong to any clubs o r organizations such as worship groups, unions, fraternal or athletic groups, or school groups? No 12/13/2024 How often do you attend meet ings of the clubs or organizations you belong to? Never 12/13/2024 Are you , , di vorced, , never , or living with a partner? 12/13/2024 AUDIT-C Answer Date Recorded Q1: How often do you have a drink containing alcohol? Never 12/13/2024 Q2: How many drinks containi ng alcohol do you have on a typical day when you are drinking? Patient does not drink Q3: How often do you have si x or more drinks on one occasion? Never 12/13/2024 Overall Financial Resource Strain (CARDIA) Answe r Date Recorded How hard is it for you to pa y for the very basics like food, housing, medical care, and heating? Not very hard 12/13/2024 PHQ-2 Answer Date Recorded Patient Health Questionnaire-2 Score 0 12/16/2024 [facility] - Occupational Stress Questionnaire Answer Date Recorded Do you feel stress - tense, restless, nervous, or anxious, or unable to sleep at night because your mind is troubled all the time - these days? Not at all 12/13/2024 Exercise Vital Sign Answer Date Recorde d On average, how many days pe r week do you engage in moderate to strenuous exercise (like a brisk walk)? 3 days 12/13/2024 On average, how many minutes do you engage in exercise at this level? 60 min 12/13/2024 Hunger Vital Sign Answer Date Recorded Within the past 12 months, y ou worried that your food would run out before you got the money to buy more. Never true 12/14/19 25 Within the past 12 months, t he food you bought just didn't last and you didn't have money to get more. Never true 12/13/2024 PRAPARE - Transportation Answer Date Re corded In the past 12 months, has l ack of transportation kept you from medical appointments or from getting medications? No 12/04 In the past 12 months, has l ack of transportation kept you from meetings, work, or from getting things needed for daily living? No 12/13/2024 Housing Stability Vital Sign Answer Joe e Recorded In the last 12 months, was t here a time when you were not able to pay the mortgage or rent on time? No 12/13/2024 Number of Times Moved in the Last Year Not on fi le 12/13/2024 At any time in the past 12 m [facility], were you homeless or living in a skilled nursing (including now)? No 12/13/2024 Sex and Gender Information Value Date Recorded Sex Assigned at Not on file Legal Sex Male 7:05 PM EDT Gender Identity Not on file Sexual Orientation Not on file documented as of this encounter Plan of Treatment Upcoming Encounters Date Type Department Care Team (Late st Contact Info) Description 06/21/2025 9:15 AM EDT Office Visit [facility] [address] [place] [address] Demetrio Lowry MD [address] [place] [address] 07/05/2025 1:30 PM EDT Office Visit [facility] [address] [place] [phone] Renetta Lux MD [address] [place] [address] documented as of this encounter Visit Diagnoses Diagnosis Diabetic polyneuropathy associated with type 2 diabetes mellitus (HCC) documented in this encounter Additional Health Concerns Assessment Noted Time PHQ-9 Depression Total Score: 3 12/17/19 25 2:00 PM EDT A fall risk assessment has been complete d for the patient 02/11/2024 2:24 PM EDT documented as of this encounter Care Teams Licensed Land Surveyor Relationship Specialty Start Date End Date Demetrio Lowry MD [address] [place] [address] PCP - General Family Medicine 05/11/24 documented as of this encounter
--- OUTSIDE RECORDS SUMMARY | 2025-05-10 10:13 | XMS_ITS | Clinical Summary ---
Author Organization [facility] Healthcare Address [address] [place] [address] Care Team Providers Care Rn Imcu Name Role Phone Demetrio Lowry MD Primary Care Provider [phone] Allergies No known active allergies Medications primidone (Mysoline) 50 MG tablet Take 50 mg by mouth 1 (one) time each day Active apixaban (Eliquis) 5 MG tablet Take 5 mg by mouth in the morning and 5 mg before bedtime. Active sotalol (Betapace) 120 MG tablet Take 120 mg by mouth in the morning and 120 mg before bedtime. Active dilTIAZem (Cardizem) 30 MG immediate release tablet Take 60 mg by mouth in the morning and 60 mg before bedtime. Active donepezil (Aricept) 10 MG tablet Take 10 mg by mouth at bedtime Active cholecalciferol (Vitamin D-3) 50 MCG (2000 UT) capsule Take 2,000 Units by mouth Daily Active nitroglycerin (Nitrostat) 0.[address] 0.4 mg under the tongue every 5 (five) minutes if needed for chest pain Active ipratropium-albut bhavik (Duo-Neb) 0.5-2.5 mg/3 mL nebulizer solution Take 3 mL by nebulization in the morning and 3 mL at noon and 3 mL in the evening and 3 mL before bedtime. Active albuterol HFA 90 mcg/act inhaler Inhale 2 puffs every 4 (four) hours if needed for shortness of breath Active ramipril (Altace) 10 MG capsuleIndication s:Gastro-esophage al reflux disease without esophagitis,Esoph ageal reflux Take 1 capsule (10 mg) by mouth Daily 100 capsule 1 024 Active loratadine (Claritin) 10 MG tabletIndications :Non-seasonal allergic rhinitis, unspecified trigger Take 1 tablet (10 mg) by mouth Daily 90 tablet 1 024 Active furosemide (Lasix) 20 MG tablet Take 20 mg by mouth in the morning. 024 Active atorvastatin (Lipitor) 80 MG tabletIndications :Hyperlipidemia, unspecified Take 1 tablet (80 mg) by mouth Daily 100 tablet 1 024 Active aspirin 81 MG EC tabletIndications :History of CVA (cerebrovascular accident),Hyperli pidemia, unspecified Take 1 tablet (81 mg) by mouth Daily 90 tablet 2 024 Active sertraline (Zoloft) 50 MG tablet Take 1 tablet by mouth Daily 024 Active omega-3 acid ethyl esters (Lovaza) 1 g capsule Take 2 g by mouth in the morning and 2 g in the evening. 024 2024 Active dapagliflozin (Farxiga) 5 MGIndications:Typ e 2 diabetes mellitus with hyperglycemia, without long-term current use of insulin (HCC) Take 1 tablet (5 mg) by mouth Daily 90 tablet 1 025 Active Lancets (OneTouch Delica Plus [id number]) miscIndications:T ype 2 diabetes mellitus with hyperglycemia, without long-term current use of insulin (HCC) USE ONCE A DAY WITH LANCING DEVICE 100 each 1 025 Active Breztri Aerosphere 160-9-4.8 MCG/ACT aerosol every 12 (twelve) hours 025 Active traZODone (Desyrel) 50 MG tabletIndications :Primary insomnia Take 1 tablet (50 mg) by mouth at bedtime 90 tablet 3 025 Active glucose blood test stripIndications: Type 2 diabetes mellitus with hyperglycemia, without long-term current use of insulin (HCC) 1 each by Other route in the morning and 1 each in the evening and 1 each before bedtime. 100 each 12 025 Active Blood Glucose Monitoring Suppl (True Metrix Air Glucose Meter) deviceIndications :Type 2 diabetes mellitus with hyperglycemia, without long-term current use of insulin (HCC) Test 3 times daily 1 each 025 Active Lancets 28G Thin miscIndications:T ype 2 diabetes mellitus with hyperglycemia, without long-term current use of insulin ([facility]) 1 each in the morning and 1 each in the evening and 1 each before bedtime. 100 each 025 Active omeprazole (PriLOSEC) [address] capsuleIndication s:Gastro-esophage al reflux disease without esophagitis,Esoph ageal reflux TAKE 1 CAPSULE BY MOUTH EVERY DAY 90 capsule 1 025 Active glimepiride (Amaryl) 2 MG tabletIndications :Type 2 diabetes mellitus with hyperglycemia, without long-term current use of insulin ([facility]) TAKE 1 TABLET BY MOUTH IN THE MORNING AND 1 TABLET BEFORE BEDTIME. 180 tablet 1 025 Active fluticasone (Flonase) 50 MCG/ACT nasal sprayIndications: Non-seasonal allergic rhinitis, unspecified trigger ADMINISTER 2 SPRAYS INTO EACH NOSTRIL DAILY SHAKE GENTLY. BEFORE FIRST USE, PRIME PUMP. AFTER USE, CLEAN TIP AND REPLACE CAP. 48 mL 3 025 Active semaglutide (Rybelsus) 14 MG tabletIndications :Controlled type 2 diabetes mellitus without complication, without long-term current use of insulin ([facility]) Take 1 tablet (14 mg) by mouth Daily 90 tablet 1 025 2024 Active gabapentin (Neurontin) 300 MG capsuleIndication s:Diabetic polyneuropathy associated with type 2 diabetes mellitus ([facility]) TAKE 1 CAPSULE BY MOUTH IN THE MORNING, EVENING AND BEFORE BEDTIME 90 capsule 2 025 Active gabapentin (Neurontin) 300 MG capsuleIndication s:Diabetic polyneuropathy associated with type 2 diabetes mellitus ([facility]) Take 1 capsule (300 mg) by mouth in the morning and 1 capsule (300 mg) in the evening and 1 capsule (300 mg) before bedtime. 90 capsule 2 025 2024 Discontinued Active Problems Problem Noted Date Diagnosed Date Penile cyst 01/03/2025 Assessment & Plan (01/03/2025 2:20 PM EDT): Lesion appears to be benign cyst, likely epidermoid. Recommend monitor. Warned if changes, increased in size, or painful to contact office. Centrilobular emphysema 12/16/2024 Medicare annual wellness visit, subsequent 12/16 Assessment & Plan (12/16/2024 3:21 PM EDT): Reviewed labs. Discussed proper diet and regular aerobic exercise. Need aerobic exercise 5-6 days a week for 30 minutes at a time. Smaller portions and limit total calories. Colonoscopy every 10 years. Tetanus every 10 years. Advised not to smoke. Primary insomnia 12/16/2024 Vitamin D deficiency 05/10/2024 History of CVA (cerebrovascular accident) 2023 Class 2 severe obesity due t o excess calories with serious comorbidity and body mass index (BMI) of 39.0 to 39.9 in adult 12/16/2023 Encounter for screening colonoscopy 12/16/2023 Non-seasonal allergic rhinitis 12/16/2023 Assessment & Plan (12/16/2023 2:11 PM EDT): Reports chronic sinus/nasal congestion and cough. Symptoms are worse in the morning Trial of Claritin and Flonase. Monitor. Normocytic anemia 10/15/2023 Encounter for screening for malignant neoplasm o f colon 2023 Assessment & Plan (2023 10:16 AM EST): Ordered Cologuard for the patient. Chronic obstructive pulmonar y disease, unspecified COPD type 2023 Assessment & Plan (06/18/2024 1:04 PM EDT): Currently using Trelegy Incruse Ellipta Albuterol Rescue PRN Duoneb nebulizer PRN Follows closely with Dr. Lee Feels symptoms are well controlled at this time. Continue current regimen, Assessment & Plan (12/16/2023 2:09 PM EDT): On trelegy Struggling with daily cough and nasal congestion. Suspect this could be due to post nasal drip and allergic rhinitis. Assessment & Plan (2023 10:14 AM EST): Former smoker. Patient reports morning cough, chest congestion, and intermittent SOB with bronchitis He used incruse and spiriva before with no improvement/effect on his symptoms. PFTs 2021- no evidence of obstructive lung disease. However, his symptoms are consistent with reactive/obstructive lung disease. Patient given samples of trelegy to use and report back if it helped him. Based on clinical response, will prescribe Trelegy for him Mild vascular dementia witho ut behavioral disturbance, psychotic disturbance, mood disturbance, or anxiety 2023 Assessment & Plan (06/18/2024 1:01 PM EDT): Condition closely monitored by Neurology. Is currently taking Donepezil, Primidone, and Trazodone. Continue to monitor and follow neurology recommendations. Depression, recurrent 2023 Assessment & Plan (03/16/2024 2:58 PM EDT): Mood stable. Denies SI/HI. Not on any medications. Assessment & Plan (2023 10:17 AM EST): Mood stable. Denies SI/HI. Not on any medications. Atrial fibrillation, unspecified type 2023 Assessment & Plan (03/16/2024 2:59 PM EDT): On Eliquis for AC. Currently using Sotalol and Cardizem Assessment & Plan (12/16/2023 2:09 PM EDT): On Eliquis for AC. Currently using Sotalol and Cardizem Assessment & Plan (2023 10:14 AM EST): On Eliquis for AC. Currently using Sotalol and Cardizem Diabetic polyneuropathy asso ciated with type 2 diabetes mellitus 2023 Assessment & Plan (06/18/2024 1:00 PM EDT): Currently taking Gabapentin 300mg TID. Feels symptoms are well controlled. Continue current regimen. Assessment & Plan (12/16/2023 2:08 PM EDT): Symptoms well controlled with gabapentin. C/w same. Assessment & Plan (2023 10:16 AM EST): Symptoms well controlled with gabapentin. C/w same. Alzheimer's disease, unspecified (CODE) 05/10/20 21 History of atrial fibrillation 08/02/2017 Hyperlipidemia 08/02/2017 Assessment & Plan (06/18/2024 12:58 PM EDT): Currently taking Atorvastatin 80mg Denies any myalgias. Most recent Lipid panel Triglycerides elevated. Most recent note from Dr. Corrales 05/10/2024 states to continue current regimen. Will discuss with Cards consideration of Fenofibrate for triglycerides Hypertension 08/02/2017 Assessment & Plan (06/18/2024 12:57 PM EDT): Currently taking Cardizem 30mg Sotalol 120mg Ramipril 10mg Furosemide 20mg Checks BP at home; Averages are 120's; Denies orthostatic changes, dizziness, cough, shortness of breath, swelling in extremities. Continue current regimen. Given BP log, advised pt to record BP and bring log back with them to next visit. Cardiology Dr. Fam is managing closely Assessment & Plan (03/16/2024 3:00 PM EDT): Home BP log reviewed. BP well controlled. On average less than 130/90. Tolerating Anti hypertensive w/o adverse effects. Denies lightheadedness, dizziness, syncope, presyncope. Patient encouraged to continue with home BP monitoring and call office if he experiences orthostatic symptoms or persistently elevated BP. Assessment & Plan (12/16/2023 2:09 PM EDT): Home BP log reviewed. BP well controlled. On average less than 130/90. Tolerating Anti hypertensive w/o adverse effects. Denies lightheadedness, dizziness, syncope, presyncope. Patient encouraged to continue with home BP monitoring and call office if he experiences orthostatic symptoms or persistently elevated BP. Assessment & Plan (2023 10:14 AM EST): Home BP log reviewed. BP well controlled. On average less than 130/90. Tolerating Anti hypertensive w/o adverse effects. Denies lightheadedness, dizziness, syncope, presyncope. Patient encouraged to continue with home BP monitoring and call office if he experiences orthostatic symptoms or persistently elevated BP. Cerebral infarction 08/06/2015 Overview (12/16/2023): Replacing Inactive Diagnoses Replacing Inactive Diagnoses Replacing Inactive Diagnoses Replacing Inactive Diagnoses Type 2 diabetes mellitus wit h hyperglycemia, without long-term current use of insulin 04/18/2015 Assessment & Plan (06/18/2024 12:59 PM EDT): Rybelsus 14mg Glimeperide 4mg Januvia 100mg- was [...] persistent hypoglycemia/hyperglycemia on home glucose monitoring noted. Assessment & Plan (03/16/2024 2:58 PM EDT): Most recent labs: hemoglobin A1C 8 12/27 DM Eye Exam: 02/25 Average FSBS range from BGs consistently in an acceptable range No episode of hypoglycemia No medication adverse effects reported by the patient. C/w rybelsus, glimepiride. If above goal, will increase glimepiride. Check A1C. Assessment & Plan (12/16/2023 2:10 PM EDT): Most recent labs: hemoglobin A1C 7.2 10/29 DM Eye Exam: 02/25 Average FSBS range from BGs consistently in an acceptable range No episode of hypoglycemia No medication adverse [...] persistent hypoglycemia/hyperglycemia on home glucose monitoring noted. C/w rybelsus, glimepiride. Assessment & Plan (2023 10:15 AM EST): Most recent labs: hemoglobin A1C 7.8 DM Eye Exam: 02/25 Average FSBS range from BGs consistently in an acceptable range No episode of hypoglycemia No medication adverse [...] persistent hypoglycemia/hyperglycemia on home glucose monitoring noted. C/w metformin, rybelsus. Last time, his glimepiride was increased from once daily to q12. Check labs before next appt. CAD (coronary artery disease) 01/20/2012 Resolved Problems Problem Noted Date Diagnosed Date Resolved Date Bronchitis 11/03/2024 12/16/2024 Assessment & Plan (11/03/2024 11:14 AM EST): Was seen by me on office in [facility] for COPD exacerbation with URI. Was treated with ATB and steroids. Went to ED in 10/10/2024 for recurrent symptoms was tx again with ATB and medrol dose pack for Bronchitis. CXR was negative. Returns to office today with symptoms recurring again. States he felt better for 2-3 days but symptoms have never fully subsided. Feels fatigued. Reports cough is intermittent and productive Sinus pressure Pt reports he completed both rounds of steroids and antibiotics. Cough is harsh and productive today in office. Likely bronchitis, but to recent prolonged use of steroids, hesitant to use again. Will reach out to Dr. Pompa today regarding pt. Will order labs and CXR again. Laceration of right hand without foreign body 04/06/2012/16/2024 COPD with acute exacerbation 10/21/2023 12/16/2024 Assessment & Plan (09/14/2024 12:43 PM EST): Productive cough X3 weeks Runny nose/Shortness of breath/Earache/Sore throat Did not test for COVID or Flu Has been using rescue inhaler 2 times daily at least. Has not used PRN albuterol Nebulizer's. Will send in Levaquin, prednisone and tessalon pearles. Advised pt to go to ER with worsening symptoms, shortness of breath or chest pain. Pt verbalized understanding. Assessment & Plan (10/21/2023 3:49 PM EST): Patient had recent COVID infection and since then he has persistent cough, chest congestion, wheezing. He was prescribed 5 day course of prednisone but did not notice any significant improvement. On exam, he has diminished lung sounds, expiratory wheezing. He is not in any resp distress. Will call in PO azithroymcin, prolonged prednisone taper. Patient asked to go to ED if worsening symptoms despite treatment. He was also asked to use his rescue inhaler q4-6 to help improve bronchospasm and improve his air movement. Morbid obesity with BMI of 40.0-44.9, adult 03/29/2020 12/16/2024 Assessment & Plan (06/17/2024 7:50 AM EDT): Discussed with patient their BMI (actual, verses recommended). We have also discussed lifestyle modifications: attempts to perform physical activity as chronic conditions allow, also to monitor dietary intake: increasing protein/fruits/veggies and lowering carb intake (unless contraindicated). Limit sodas, juices, and sugary drinks. Also discussed oral medications that can be utilized for weight loss, as well as surgical options for weight loss. Encounters Date Type Department Care Team Description 05/06/2025 Refill [facility] [address] [address] Demetrio Lowry MD Diabetic polyneuropathy associated with type 2 diabetes mellitus (HCC) 03/08/2025 1:20 PM EDT Office Visit [facility] [place] [facility] [address] [place] [address] Renetta Lux MD Type 2 diabetes mellitus with hyperglycemia, without long-term current use of insulin (HCC) (Primary Dx); Mixed hyperlipidemia ; Primary hypertension ; Vitamin D deficiency; Encounter for dietary consultation; Class 3 severe obesity due to excess calories with serious comorbidity and body mass index (BMI) of 40.0 to 44.9 in adult ([facility]) 03/08/2025 Bamboo flowsheet [facility] [place] [facility] [address] [place] [address] Renetta Lux MD 03/07/2025 Refill [facility] [address] [place] [address] Demetrio Lowry MD Controlled type 2 diabetes mellitus without complication, without long-term current use of insulin (HCC) from Last 3 Months Immunizations Immunization Administration Dates Next Due Influenza Whole 07/26/2015 Influenza, High Dose Seasonal, Preservative Free 07/16/2020 Influenza, High-dose Seasona l, Quadrivalent, Preservative Free 09/17/2023 Influenza, Unspecified 07/08/2016,07/26/2015 Influenza, injectable, quadrivalent, preservativ e free 07/05/2019 Influenza, seasonal, injectable 07/08/2016 Pneumococcal Conjugate PCV 13 04/05/2016 Pneumococcal Polysaccharide PPSV23 07/05/2019, Zoster, Recombinant 06/03/2023,04/01/2023 Zoster, live 03/14/2017 Family History Medical History Relation Name Comments Cataracts Father Hypertension Father Stroke Father CVA Diabetes Sister Relation Name Status Comments Father Sister Social History Tobacco Use Types Packs/Day Years Used Date Smoking Tobacco: Former Cigarettes Passive Smoke Exposure: Past Smokeless Tobacco: Never Tobacco Cessation:Counseling Given: Not Answered Alcohol Use Standard Drinks/Week Comments Not Currently [...] week 12/13/2024 How often do you attend [facility] or mosque services? Never 12/13/2024 Do you belong to any clubs o r organizations such as protestant groups, unions, fraternal or athletic groups, or [...] Recorded Patient Health Questionnaire-2 Score 0 12/16/2024 [facility] - Occupational Stress [...] any time in the past 12 m [facility], were you homeless or living in a group home (including now)? No 12/13/2024 Sex and Gender Information Value Date Recorded Sex Assigned at Not on file Legal Sex Male 7:05 PM EDT Gender Identity Not on file Sexual Orientation Not on file Last Filed Vital Signs Vital Sign Reading Time Taken Comments Blood Pressure 108/66 03/08/2025 1:27 PM EDT Pulse 64 03/08/2025 1:27 PM EDT Temperature 36.4 C (97.5 F) 01/03/2025 1:38 PM EDT Respiratory Rate 16 03/08/2025 1:27 PM EDT Oxygen Saturation 97% 03/08/2025 1:27 PM EDT Inhaled Oxygen Concentration - - Weight 123 kg (271 lb) 03/08/2025 1:27 PM EDT Height 172.7 cm (5' 8 ) 03/08/2025 1:27 PM EDT Body Mass Index 41.21 03/08/2025 1:27 PM EDT Plan of Treatment Upcoming Encounters Date Type Department Care Team (Late st Contact Info) Description 06/21/2025 9:15 AM EDT Office Visit [facility] [address] [place] [address] Demetrio Lowry MD [address] [place] [address] 07/05/2025 1:30 PM EDT Office Visit [facility] [place] [facility] [address] [place] [phone] Renetta Lux MD [address] [place] [address] Health Maintenance Due Date Last Done Comments Diabetes: Urine Protein Screening 05/06/2024 05/06/2023, 03/20/2021, 05/25/2018, Additional history exists Influenza Vaccine (#1) 2025 3, 07/16/2020, 07/05/2019, Additional history exists Diabetes: Hemoglobin A1C 09/07/2025 025, 11/09/2024, 11/09/2024, Additional history exists Medicare Annual Wellness (AWV) 12/16/2025 0 12/16/2024, 2023, 2023, Additional history exists Diabetes: Retinopathy Screening 03/23/2026 4, 02/03/2023 FIT Discontinued 01/01/2018, 04/09/2016 FOBT Discontinued 01/01/2018, 04/09/2016 Pneumococcal Vaccine: 65+ Years Completed 07/05/2019, 04/05/2016, 04/15/2014 Colonoscopy Discontinued 01/05/2024, 07/0 06/2019, 1950 Colorectal Cancer Screening Discontinued CT Colonography Discontinued FIT-DNA Discontinued Sigmoidoscopy Discontinued Procedures Procedure Name Priority Date/Time Associated Diagnosis Comments POCT GLYCOSYLATED HEMOGLOBIN (HGB A1C) Routine 03/08/2025 1:28 PM EDT Type 2 diabetes mellitus with hyperglycemia, without long-term current use of insulin (HCC) POCT GLUCOSE Routine 03/08/2025 1:28 PM EDT Type 2 diabetes mellitus with hyperglycemia, without long-term current use of insulin (HCC) DIABETIC RETINOPATHY SCREENING - OU - BOTH EYES Routine 03/23/2024 11:21 AM EDT from Last 3 Months or Most Recently Relevant to Health Maintenance Results * POCT glycosylated hemoglobin (Hb A1C) docked device (03/08/2025 1:28 PM EDT) Hemoglobin A1C 7.2 Blood Venous blood specimen / Unknown 03/08/2025 1:28 PM EDT Renetta Lux MD POINT OF CARE TEST ENTER/EDIT ORDERABLES Final Result * POCT glucose manually resulted (03/08/2025 1:28 PM EDT) Glucose Blood, POC 306 mg/dL Blood Capillary blood specimen / Unknown 03/08/2025 1:28 PM EDT Renetta Lux MD POINT OF CARE TEST ENTER/EDIT ORDERABLES Final Result * Diabetic Retinopathy Screening - OU - Both Eyes (03/23/2024 11:21 AM EDT) Anatomical Region Laterality Modality Head Other [facility] Final Result from Last 3 Months or Most Recently Relevant to Health Maintenance Insurance MEDICARE ADVANTAGE Care Teams Rn Imcu Relationship Specialty Start Date End Date Demetrio Lowry MD [address] [place] [phone] PCP - General Family Medicine 05/11/24
--- OUTSIDE RECORDS SUMMARY | 2025-05-10 10:13 | XMS_ITS | Encounter Summary ---
Author Organization [facility] Address [address] [facility] [place] [address] Care Team Providers Care Test And Research Reactor Operator Name Role Phone Demetrio Lowry MD Primary Care Provider [phone] Gina Li MA Unavailable [phone] Reason for Visit * Reason Comments Med Refill Encounter Details Date Type Department Care Team (Late st Contact Info) Description [facility] [address] [place] [address] Demetrio Lowry MD [address] [place] [address] Gastro-esophageal reflux disease without esophagitis; Esophageal reflux; Non-seasonal allergic rhinitis, unspecified trigger Social History Tobacco Use Types Packs/Day Years [...] 12/13/2024 How often do you attend chur or bahai services? Never 12/13/2024 Do you belong to any clubs o r organizations such as mu-ism groups, unions, fraternal or athletic groups, or [...] Recorded Patient Health Questionnaire-2 Score 0 12/16/2024 [facility] - Occupational [...] any time in the past 12 m [facility], were you homeless or living in a correction (including now)? No 12/13/2024 Sex and Gender Information Value Date Recorded Sex Assigned at Not on file Legal Sex Male 7:05 PM EDT Gender Identity Not on file Sexual Orientation Not on file documented as of this encounter Miscellaneous Notes * Telephone Encounter - [place] [place] - 01/05/2025 8:35 AM EDT MEDICATION SENT TO [facility] documented in this encounter Plan of Treatment Upcoming Encounters Date Type Department Care Team (Late st Contact Info) Description 06/21/2025 9:15 AM EDT Office Visit [facility] [address] [place] [phone] Demetrio Lowry MD [address] [place] [address] 07/05/2025 1:30 PM EDT Office Visit [facility] [place] [facility] [address] [place] [address] Renetta Lux MD [address] [place] [address] documented as of this encounter Visit Diagnoses Diagnosis Gastro-esophageal reflux disease without esophagitis Esophageal reflux Non-seasonal allergic rhinitis, unspecified trigger documented in this encounter Additional Health Concerns Assessment Noted Time PHQ-9 Depression Total Score: 3 12/17/19 25 2:00 PM EDT A fall risk assessment has been complete d for the patient 02/11/2024 2:24 PM EDT documented as of this encounter Care Teams Test And Research Reactor Operator Relationship Specialty Start Date End Date Demetrio Lowry MD [address] [place] [address] PCP - General Family Medicine 05/11/24 Gina Li MA [address] [place] [address] Family Medicine 08/13/24 01/12/25 documented as of this encounter
--- OUTSIDE RECORDS SUMMARY | 2025-05-10 10:15 | XMS_ITS | Encounter Summary ---
Author Organization [facility] Healthcare Address [address] [place] [address] Care Team Providers Care Drying Supervisor Name Role Phone Shaikh KODY Mcnally Unavailable [phone] Shaikh KODY Mcnally Primary Care Provider [phone] Zoë Beckford [place] NURSE Unavailable Unavailable Demetrio Lowry MD Primary Care Provider [phone] Daniella Resendez COATER Unavailable [phone] Nichol Lee [place] NURSE Unavailable Gina Li MA Unavailable [phone] Encounter Details Date Type Department Care Team (Late st Contact Info) Description 03/23/2024 Orders Only [facility] [address] [place] [phone] Shaikh Mcnally MD [address] [facility] [place] [phone] Social History Tobacco Use Types Packs/Day Years Used Date Smoking Tobacco: Former Cigarettes Passive Smoke Exposure: Past Smokeless Tobacco: Never Alcohol Use Standard Drinks/Week Comments Not Currently 0 (1 standard drink = 0.6 oz pur e alcohol) Humiliation, Afraid, Rape, and Kick questionnair e [...] neighbors? More than three times a week 2023 How often do you get togethe r with friends or relatives? More than three times a week 2023 How often do you attend chur or catholic services? Never 2023 Do you belong to any clubs o r organizations such as yarsanism groups, unions, fraternal or athletic groups, or school groups? No 2023 How often do you attend meet ings of the clubs or organizations you belong to? Never 2023 Are you , , di vorced, , never , or living with a partner? 2023 AUDIT-C Answer Date Recorded Frequency of Alcohol Consumption Not on file 2023 Q2: How many drinks containi ng alcohol do you have on a typical day when you are drinking? Patient does not drink Q3: How often do you have si x or more drinks on one occasion? Never 2023 Overall Financial Resource Strain (CARDIA) Answe r Date Recorded How hard is it for you to pa y for the very basics like food, housing, medical care, and heating? Not very hard 2023 PHQ-2 Answer Date Recorded Patient Health Questionnaire-2 Score 0 03/16/2024 [facility] - Occupational Stress Questionnaire Answer Date Recorded Do you feel stress - tense, restless, nervous, or anxious, or unable to sleep at night because your mind is troubled all the time - these days? Not at all 2023 Exercise Vital Sign Answer Date Recorde d On average, how many days pe r week do you engage in moderate to strenuous exercise (like a brisk walk)? 0 days 2023 On average, how many minutes do you engage in exercise at this level? 0 min 2023 Hunger Vital Sign Answer Date Recorded Within the past 12 months, y ou worried that your food would run out before you got the money to buy more. Never true 09/18/20 23 Within the past 12 months, t he food you bought just didn't last and you didn't have money to get more. Never true 2023 PRAPARE - Transportation Answer Date Re corded In the past 12 months, has l ack of transportation kept you from medical appointments or from getting medications? No 09/05 In the past 12 months, has l ack of transportation kept you from meetings, work, or from getting things needed for daily living? No 2023 Sex and Gender Information Value Date Recorded Sex Assigned at Not on file Legal Sex Male 7:05 PM EDT Gender Identity Not on file Sexual Orientation Not on file documented as of this encounter Plan of Treatment Upcoming Encounters Date Type Department Care Team (Late st Contact Info) Description 06/21/2025 9:15 AM EDT Office Visit [facility] [address] [place] [address] Demetrio Lowry MD [address] [place] [address] 07/05/2025 1:30 PM EDT Office Visit [facility] [place] [facility] [address] [place] [phone] Renetta Lux MD [address] [place] [address] documented as of this encounter Procedures Procedure Name Priority Date/Time Associated Diagnosis Comments DIABETIC RETINOPATHY SCREENING - OU - BOTH EYES Routine 03/23/2024 11:21 AM EDT documented in this encounter Results * Diabetic Retinopathy Screening - OU - Both Eyes (03/23/2024 11:21 AM EDT) Anatomical Region Laterality Modality Head Other us Shaikh Dali [facility] Final Result documented in this encounter Visit Diagnoses Not on filedocumented in this encounter Additional Health Concerns Assessment Noted Time PHQ-9 Depression Total Score: 5 09/18/20 23 9:50 AM EST A fall risk assessment has been complete d for the patient 02/11/2024 2:24 PM EDT documented as of this encounter Care Teams Drying Supervisor Relationship Specialty Start Date End Date Shaikh Mcnally MD [address] [place] [phone] PCP - Devoted 06/06/22 10/05/24 Shaikh Mcnally MD [address] [place] [address] PCP - General Internal Medicine 12/16/23 05/10/24 Demetrio Lowry MD [address] [place] [address] PCP - General Family Medicine 05/11/24 Zoë Beckford LPN Licensed Practical Nurse Family Medicine 02/09/24 Daniella Resendez NP [address] [place] [phone] Nurse Practitioner Family Medicine 05/11/24 12/15/24 Nichol Lee LPN [address] [place] [address] Licensed Practical Nurse Family Medicine 06/18/2408/13 Gina Li, IBETH [address] [place] [address] Family Medicine 08/13/24 01/12/25 documented as of this encounter
--- OUTSIDE RECORDS SUMMARY | 2025-05-10 10:15 | XMS_ITS | Encounter Summary ---
Author Organization [facility] Address [address], [address] [place] [address] Care Team Providers Care Invoicing Machine Operator Name Role Phone Shaikh KODY Mcnally Primary Care Provider [phone] Reason for Visit * Reason Comments Other Encounter Details Date Type Department Care Team (Late st Contact Info) Description 02/28/2014 Refill [facility] [employer] Operator [address] [place] [address] Reyes Rashid MD [address] [place] [address] Other Social History Tobacco Use Types Packs/Day [...] Description 10/20/2025 9:00 AM EST Office Visit [facility] Part of [address] [place] [phone] Castillo Clark MD [address] [place] [address] [address] [place] [phone] 6 month follow up/ Essential Tremors documented as of this encounter Visit Diagnoses Not on filedocumented in this encounter Additional Health Concerns Infection Onset Date Last Indicated Resolved Time COVID-19 (Rule Out) 07/19/2021 07/19/2021 07/20/20 21 1:10 PM EDT documented as of this encounter Care Teams Invoicing Machine Operator Relationship Specialty Start Date End Date Shaikh Mcnally MD PCP - General 10/01/22 documented as of this encounter
--- OUTSIDE RECORDS SUMMARY | 2025-05-10 10:15 | XMS_ITS | Patient Health Record ---
Author Organization [facility] [place] Address [address] [place] [address] Care Team Providers Care Core Blower Name Role Phone SHIMA GLASER Primary Care Provide r Unavailable Frankie Saenz Unavailable [phone] Allergies No Known Allergies Results Component Value Reference Range Notes B. PERTUSSIS AB IGA/IGG/IGM Reviewed date:11/22/2024 07:01:55 AM Interpretation: Performing Lab: Notes/Report: CT Chest High Resolution Reviewed date:11/16/2024 07:12:24 AM Interpretation: Performing Lab: Notes/Report: LAB TESTING Reviewed date:11/23/2024 08:09:16 AM Interpretation: Performing Lab: Notes/Report: [id number] Bordetella pertussis Antibodies, IgA, IgG, IgM [facility] , Miscellaneous Test COMMENT . Test Ordered: [id number] B pertussis IgG/M/A Ab B pertussis IgG Ab 2.59 [H ] index BN Reference Range: 0.00-0.94 Negative <0.95 Equivocal 0.95 - 1.04 Positive >1.04 B pertussis IgM Ab <1.0 index BN Reference Range: 0.0-0.9 Negative <1.0 Borderline 1.0 - 1.1 Positive >1.1 B pertussis IgA Ab 4.3 [H ] index BN Reference Range: 0.0-0.9 Negative <1.0 Borderline 1.0 - 1.1 Positive >1.1 Performed at: - [facility] [address] [id number] Shingle Packer: Viry Roth MD, Phone: [phone] Performed at: [facility] [address] [id number] Shingle Packer: Juan Bermudez PhD, Phone: [phone] Performing Lab: see note - [facility] LB CT chest high res Reviewed date:11/16/2024 07:45:48 AM Interpretation: Performing Lab: Notes/Report: Source Facility: [place] [id number] CT Scan Report Signed Patient: FEMI PELAEZ MR#: [id number] : 1950 Acct:[id number] Age/Sex: 74 / M ADM Date: 11/15/24 Loc: LAB Attending Dr: Frankie Saenz D.O. Ordering Physician: Frankie Saenz D.O. Date of Service: 11/15/24 Procedure(s): CT chest high res Accession Number(s): [id number] cc: SHIMA KULKARNI [place] [address] Patient Name: FEMI PELAEZ MRN: [id number] date: 1950 Sex: M Assigned Patient Location: LAB Current Patient Location: Accession/Order Number: [id number] Exam Date: 11/15/2024 11:55 Report Date: 11/16/2024 06:38 At the request of: FRANKIE SAENZ Procedure: CT chest high res EXAMINATION: CT chest high res HISTORY: Chronic cough, R05.3 COMPARISON: No relevant comparison available. TECHNIQUE: Axial images were obtained at 10 mm intervals during inspiration and expiration in the supine and prone positions. No IV contrast given. Dose reduction techniques were achieved by using automated exposure control and/or adjustment of mA and/or kV according to patient size and/or use of iterative reconstruction technique. FINDINGS: LUNGS: No visible pulmonary disease. PLEURA: No mass, effusion, or pneumothorax. PAIGE: No mass or adenopathy. MEDIASTINUM: No mass or adenopathy. HEART: No significant enlargement or pericardial effusion.. Coronary arteries: Areas of moderate to marked atherosclerotic disease. Suspect prior endovascular stenting within the LAD. AORTA: No aneurysm.. CHEST WALL: No mass or axillary adenopathy LIMITED ABDOMEN: Small nonobstructing stone within left kidney superior pole. Limited images of the upper abdomen. OTHER: Negative. CT/CT chest high res IMPRESSION: 1. No acute infiltrates or significant chronic interstitial changes to account for patient's symptoms. Electronically authenticated by: DUSTIN COTTER Date: 11/16/2024 06:38 Dictated By: Dustin Cotter M.D. Signed By: 11/16/2441 DD/ 7 TD/TT: Cardiopulmonary Supervisor: [place] [address] CT Scan Report Signed Patient: FEMI PELAEZ MR#: [id number] : 1950 Acct:[id number] Age/Sex: 74 / M ADM Date: 11/15/24 Loc: LAB Attending Dr: Frankie Saenz D.O. Ordering Physician: Frankie Saenz D.O. Date of Service: 11/15/24 Procedure(s): CT trista st high res Accession Number(s): [id number] cc: SHIMA KULKARNI [place] [id number] Patient Name: FEMI PELAEZ MRN: [id number] date: 1950 Sex: M Assigned Patient Location: LAB Current Patient Location: Accession/Order Numb er: [id number] Exam Date: 11/15/2024 11:55 Report Date: 11/16/2024 06:38 At the request of: FRANKIE SAENZ Procedure: CT chest high res EXAMINATION: CT ches t high res HISTORY: Chronic cou gh, R05.3 COMPARISON: No relev ant comparison available. TECHNIQUE: Axial merrill ges were obtained at 10 mm intervals during inspiration and expiration in the broussard pine and prone positions. No IV contrast given. Dose reduction techniques were achieved by using automated exposure control and/or adjustment of mA and /or kV according to patient size and/or use of iterative reconstruction technique. FINDINGS: LUNGS: No visible pulmonary disease. PLEURA: No mass, effusion, or pneumothorax. PAIGE: No mass or adenopathy. MEDIASTINUM: No mass or adenopathy. HEART: No significan t enlargement or pericardial effusion.. Coronary arteries: Areas of moderate to marked atherosclerotic disease. Suspect prior endovascular stenting within the LAD. AORTA: No aneurysm.. CHEST WALL: No mass or axillary adenopathy LIMITED ABDOMEN: Sma ll nonobstructing stone within left kidney superior pole. Limited images of th e upper abdomen. OTHER: Negative. C T/CT chest high res IMPRESSION: 1. No acute infiltra nacho or significant chronic interstitial changes to account for patient's symptoms. Electronically authenticated by: DUSTIN COTTER Date: 11/16/2024 06:38 Dictated By: Dustin Cotter M.D. Signed By: 11/16/24640 DD/ 7 TD/TT: Cardiopulmonary Supervisor: Reason For Referral No Information Medications Medication SIG (Take, Route, Frequency, Duration) Notes Start Date End Date Status Russtobilaura Aerosphere 160-9-4.8 MCG/ACT 2 puffs Inhalation BID for 90 days Rinse after use 11/03/2024 Active dilTIAZem HCl 30 MG TAKE 1 TABLET BY EVELINE TH TWICE A DAY Oral for 90 days Active Rybelsus 14 MG TAKE 1 TABLET BY EVELINE TH EVERY DAY Oral for 90 Days Active Atorvastatin Calcium 80 MG TAKE 1 TABLET BY MOUTH EVERY DAY Oral for 100 Days Active Ramipril 10 MG TAKE 1 CAPSULE BY MO UTH EVERY DAY Oral for 100 Days Active Albuterol Sulfate HFA 108 (90 Base) MCG/ACT 2 puffs as needed Inhalation every 4 hrs Active Primidone 50 MG TAKE 3 TABLETS BY MO UTH DAILY Oral for 90 Days Active Albuterol Sulfate (2.5 MG/3ML) 0.083% 3 mL as needed Inhalation every 6 hrs Active Omeprazole 20 MG Oral for 100 Days Active Ipratropium-Albuterol 0.5-2.5 (3) MG/3ML 3 mL as needed Inhalation every 6 hrs 11/03/2024 Active Azithromycin 250 MG Take 2 tablets on th e first day, and take 1 tablet on the remaining 4 days Orally for 5 days 11/23/2024 Active Glimepiride 2 MG TAKE 1 TABLET BY EVELINE TH EVERY DAY BEFORE BREAKFAST Oral for 90 Days Active Fluticasone Propionate 50 MCG/ACT Nasal for 30 Days Active Eliquis 5 MG TAKE 1 TABLET BY EVELINE TH IN THE MORNING AND AT BEDTIME Oral for 90 Days Active traZODone HCl 50 MG TAKE 1 TABLET BY EVELINE TH NIGHTLY Oral for 90 Days Active Donepezil HCl 10 MG Oral for 90 Days Active Sotalol HCl 120 MG TAKE 1 TABLET (120 M G) BY MOUTH IN THE MORNING AND AT BEDTIME. Oral for 90 Days Active Sertraline HCl 50 MG Oral for 90 Days Active Immunizations Vaccine Route Administration Date Status Comme nts Flu, Fluzone (49948) 6 mos+, single-dose syringe/vial (3324-1077) Unknown 07/05/2019 Administered Pneumococcal (Pneumovax 23) Unknown 07/05/2019 Administ ered Pneumococcal (Prevnar 13) Unknown 04/05/2016 Administer ed SARS-COV-2 (COVID 19 Pfizer 30mcg/0.3mL) Unknown 06/29/2021 Administered ZOSTER (SHINGLES) VACCINE (HZV) Unknown 06/03/2023 Admi nistered Zoster (Zostavax) Unknown 03/14/2017 Administered Social History Tobacco Use: Social History Observation [...] Problem Status W/U Status Risk Notes Problem 016745971 Morbid (severe) obesity due to excess calories (E66.01) Active confirmed Problem Centrilobular emphysema (45791322) Centrilobular emphysema (J43.2) Active confirmed Problem 714998066 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 (Z79.51) Active confirmed Problem COPD - Chronic obstructive pulmonary disease (20434457) COPD (chronic obstructive pulmonary disease) (J44.9) Active confirmed Problem Obstructive sleep apnea syndrome (00684258) JAKUB (obstructive sleep apnea) (G47.33) Active confirmed Problem Diabetes mellitus type 2 (disorder) (36055088) DM2 (diabetes mellitus, type 2) (E11.9) Active confirmed Problem Ex-tobacco user (finding) (294501555) History of tobacco abuse (Z87.891) Active confirmed 1ppd x 45 years, quit 2004 Problem Pertussis (67066064) Pertussis (A37.90) Active confirmed Problem 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) Active confirmed Problem 336010468 Body mass index [BMI] 40.0-44.9, adult (Z68.41) Active confirmed Vital Signs Heart Rate 63 /min 11/16/2024 Temperature 96.9 degrees Fahrenheit 11/16/2024 Respiratory Rate 18 /min 11/16/2024 Oximetry 97 % 11/16/2024 Blood pressure diastolic 74 mm Hg 11/16/2024 Height 68 in 11/16/2024 Blood pressure systolic 123 mm Hg 11/16/2024 Weight 264.8 lbs 11/16/2024 BMI 40.26 kg/m2 11/16/2024 Encounters Encounter Location Date Provider Diagnosis Pulmonary Medicine [address] [address] 11/03/2024 [facility] Chronic cough R05.3 ; Centrilobular emphysema J43.2 ; Peripheral eosinophilia D72.19 and Morbid (severe) obesity due to excess calories E66.01 Pulmonary Medicine [address] [address] 11/16/2024 [facility] Centrilobular emphys micah J43.2 ; Peripheral eosinophilia D72.19 ; Morbid (severe) obesity due to excess calories E66.01 ; JAKUB (obstructive sleep apnea) G47.33 ; DM2 (diabetes mellitus, type 2) E11.9 ; History of tobacco abuse Z87.891 and 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 Z79.51 Pulmonary Medicine [address] [address] 11/01/2024 [facility] Pulmonary Medicine [address] [address] 11/16/2024 [facility] Pulmonary Medicine [address] [address] 11/23/2024 [facility] Pertussis A37.[address] [address] [facility] Encounter Date Diagnosis (ICD Code) Assessment [...] monitoring. Patient voiced he would like that. 11/03/2024 Centrilobular emphysema (ICD-10 - J43.2) Patient was doing okay when I saw him last November, but now he is on Trelegy 200 for some unknown reason. He did not respond well to the dry powder inhalers in the past, and is not tolerating Trelegy well either. As above, changing him to Breztri; see if the HFA formulation is better for him. 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 11/03/2024 Chronic cough (ICD-10 - R05.3) Chronic cough now for ~3 months (>8 weeks). Has been treated with antibiotics (at least doxycycline) and steroids. Seems to improve with steroids while on them, but then gets worse. Unclear if provoked by Febreeze or associated with an infection. CXR have been unremarkable. Reviewed differential with patient: -COPD: Was controlled when I saw him last November, but however he was started on Trelegy unbeknownst to me, but Trelegy does not seem to be improving his symptoms. 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 It also could be aggravated by the dry powder from the Trelegy Ellipta; he previously stated he did not tolerate Incruse which is literally in Trelegy. -Postnasal drip: Causing upper airway cough syndrome -GERD: He states this is controlled -Postinfectious cough:The barking cough could indicate a pertussis posttussive cough. I do not see any history of a recent Tdap or Boostrix vaccination. 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 Typically this is nonproductive. With his elevated eosinophils, he may be at Dupixent candidate. Before looking into Biologics, I recommended a little further workup. Ordering a HRCT to evaluate for any other cause for his cough that would not be identified on a CXR. Changing Trelegy to Breztri; it is a lateral move with a triple inhaler (ICS/LAMA/LAMA) but an HFA formulation which should not be as aggravating as the dry powder in the Ellipta device. He has responded to steroids, so will prescribe another round of prednisone. I do not feel another round of antibiotics is indicated - he does not appear acutely ill; his WBC on 11/01/2024 was only 10.3 and he is afebrile. Ordering pertussis antibody labs-he is already been treated with doxycycline, but that does not have coverage against Pertussis. Purpose of this is to determine whether or not we are dealing with the posttussive syndrome or not. He already has an appointment scheduled for 2 weeks for his JAKUB compliance; he is going to keep that we will follow-up with him at that time. 11/23/2024 Pertussis (ICD-10 - A37.90) 11/03/2024 Peripheral eosinophilia (ICD-10 - D72.19) Reviewed eosinophil levels over the past 18 months: Eosinophils: -11/01/2024: 4.5% / 500 -06/24/2024: 5.7% / 400 -01/01/2024: 5.6% / 500 -10/07/2023: 12.1% / 1000 -05/15/2023: 5% / 500 Eosinophil levels are persistently elevated; this is just not a one-time event. If his symptoms are not controlled with above interventions, will need to look into Dupixent for eosinophilic phenotype of COPD. 11/16/2024 Peripheral eosinophilia (ICD-10 - D72.19) Eosinophils: [...] a pamphlet on Dupixent just in case. 11/03/2024 Morbid (severe) obesity due to excess calories (ICD-10 - E66.01) Patient's BMI is 40.5. Prior spirometry/PFT was nondiagnostic for obstruction. His obesity is causing restrictive physiology in spirometry is obscuring any underlying obstruction. I do not feel repeating a PFT at this time would add much clinical value as I expect the results once again be nondiagnostic 11/16/2024 JAKUB (obstructive sleep apnea) (ICD-10 - G47.33) Mrxc-xi-ikay encounter performed with the patient to document continued need for PAP therapy. -PS04/07/2018; AHI: 77.8 -DME: [facility]-Compliance was reviewed from 10/15/2024 - 11/13/2024-Total days used: (100%)-Total of all days >4 hours of use: 30 (100%)-Current model, mode, & pressure: G3 Auto-CPAP [id number] -Average pressure: 7.2yxF1M-Xafbstpn AHI: 3.5 -Average leak: 13.8L/min-Mask/tyler ness fitting: Did not like the new nasal pillows-Sleep quality: Improved with CPAP use-Daytime hypersomnolence: Decreased with CPAP use-Recommendation s: Patient continues to exhibit superb compliance with CPAP. He voices no complaints today. Will continue at current settings.-Note: This [id number]-[id number] visit comes with my authorization that the patient's DME may request to renew, reorder, and/or replace tubing, supplies, mask, and/or PAP device (if applicable). 11/16/2024 Morbid (severe) obesity due to excess calories (ICD-10 - E66.01) Patient's weight is inducing a restrictive pulmonary physiology. Weight loss indicated: Decrease calories, increase activity. 11/16/2024 DM2 (diabetes mellitus, type 2) (ICD-10 [...] age, time from cessation, # pack-years). 11/16/2024 longterm (current) use of inhaled steroids (ICD-10 - Z79.51) Patient was counseled to rinse & gargle with water after inhaled corticosteroid use. Plan Of Treatment No Information Insurance Providers Payer Name Payer Address Payer Phone Subscriber Number Group Number Insured Name Patient Relationship to Insured Coverage Start Date Coverage End Date [employer] [address] [address] [place] [address] [id number] Femi Feng Self - patient is the insured Medical (General) History Medical History History ICD Code JAKUB (obstructive sleep apnea) G47.33 Centrilobular emphysema J43.2 CAD (coronary artery disease) I25.10 PLMD (periodic limb movement disorder) G 47.61 DM2 (diabetes mellitus, type 2) E11.9 HTN (hypertension) I10 PVD (peripheral vascular disease) I73.9 HLD (hyperlipidemia) E78.5 PAF (paroxysmal atrial fibrillation) I48 .0 History of stroke Z86.73 Peripheral eosinophilia D72.19 History of tobacco abuse Z87.891 Pertussis A37.90 Surgical History Surgery Date(Month/Year) cardiac ablation cardiac stent tonsillectomy
--- OUTSIDE RECORDS SUMMARY | 2025-05-10 10:15 | XMS_ITS | Clinical Summary ---
Author Organization [facility] Address [address] [facility], [address] [place] [address] Care Team Providers Care Photo Checker Name Role Phone Shaikh KDOY Mcnally Primary Care Provider [phone] Allergies No known active allergies Medications Cholecalciferol (VITAMIN D) 2000 units CAPS capsule Take 1 capsule by mouth daily Active aspirin EC 81 MG EC tablet Take 1 tablet by mouth daily Active sotalol (BETAPACE) 120 MG tablet Take 1 tablet by mouth 2 times daily Active apixaban (ELIQUIS) 5 MG TABS tablet Take 1 tablet by mouth 2 times daily Active guaiFENesin (MUCINEX) 600 MG extended release tablet Take 1 tablet by mouth 2 times daily as needed for Congestion 30 tablet 9 Active nitroGLYCERIN (NITROSTAT) 0.[address] 1 tablet under the tongue every 5 minutes as needed for Chest pain 25 tablet 1 0 Active blood glucose monitor kit and suppliesIndicat ions:Controlled type 2 diabetes mellitus with hyperglycemia, without long-term current use of insulin (HCC) Use to test daily 1 kit 0 Active blood glucose monitor stripsIndicatio ns:Controlled type 2 diabetes mellitus with hyperglycemia, without long-term current use of insulin (HCC) Test BS daily DX: E11.65 100 strip 5 0 Active albuterol sulfate HFA 108 (90 Base) MCG/ACT inhaler 2 puffs every 6 hours as needed 1 Active nystatin (MYCOSTATIN) 466051 UNIT/GM cream Apply topically 2 times daily Apply topically 2 times daily. 30 g 2 2 Active gabapentin (NEURONTIN) 300 MG capsule Take 1 capsule by mouth 3 times daily for 122 days. 90 capsule 3 2 Active ramipril (ALTACE) 5 MG capsule TAKE 1 CAPSULE BY MOUTH TWICE A DAY 180 capsule 1 2 Active Additional Information Patient taking differently: 10 mg Oral DAILY, (No instructions reported), Reported on 04/21/2025 atorvastatin (LIPITOR) 80 MG tablet TAKE 1 TABLET BY MOUTH EVERY DAY 90 tablet 1 2 Active omeprazole (PRILOSEC) 20 MG delayed release capsule Take 1 capsule by mouth Daily 90 capsule 1 2 Active glimepiride (AMARYL) 2 MG tabletIndicatio ns:Controlled type 2 diabetes mellitus with hyperglycemia, without long-term current use of insulin (HCC) TAKE 1 TABLET BY MOUTH EVERY DAY BEFORE BREAKFAST 90 tablet 1 2 Active Additional Information Patient taking differently: 2 mg Oral DAILY, (No instructions reported), Reported on 04/21/2025 Semaglutide (RYBELSUS) 14 MG TABS Take by mouth daily Active traZODone (DESYREL) 50 MG tabletIndicatio ns:Insomnia w/ sleep apnea Take 1 tablet by mouth nightly 90 tablet 3 3 Active dilTIAZem (CARDIZEM) 60 MG tablet TAKE 1 TABLET BY MOUTH TWICE A DAY 180 tablet 2 3 Active dapagliflozin (FARXIGA) 10 MG tablet Take 1 tablet by mouth daily 4 08/02/20 25 Active furosemide (LASIX) 20 MG tablet Take 1 tablet by mouth daily 4 Active fluticasone (FLONASE) 50 MCG/ACT nasal spray 1 spray by Nasal route daily Active TRELEGY ELLIPTA 200-62.5-25 MCG/ACT AEPB inhaler INHALE 1 PUFF BY MOUTH ONCE A DAY 4 Active ipratropium 0.5 mg-albuterol 2.5 mg (DUONEB) 0.5-2.5 (3) MG/3ML SOLN nebulizer solution 3 mLs Active omega-3 acid ethyl esters (LOVAZA) 1 g capsule Take 2 capsules by mouth 2 times daily 4 Active donepezil (ARICEPT) 10 MG tablet Take 1 tablet by mouth nightly 90 tablet 3 4 Active primidone (MYSOLINE) 50 MG tablet Take 2 tablets by mouth in the morning and at bedtime 360 tablet 1 5 Active sertraline (ZOLOFT) 50 MG tablet TAKE 1 TABLET BY MOUTH EVERY DAY 90 tablet 1 5 Active BREZTRI AEROSPHERE 160-9-4.8 MCG/ACT AERO every 12 hours 5 Active Active Problems Problem Noted Date Diagnosed Date Alzheimer's disease, unspecified 05/10/2021 COPD, severity to be determined 03/29/2020 Atrial fibrillation with rapid ventricular respo nse 03/29/2020 Morbid obesity with BMI of 40.0-44.9, adult 03/07 History of atrial fibrillation 08/02/2017 Diabetes type 2, controlled 04/18/2015 Cerebral infarction Overview (08/06/2015): Replacing Inactive Diagnoses CAD (coronary artery disease) Hypertension Hyperlipidemia Glaucoma Parkinsonism Resolved Problems Problem Noted Date Diagnosed Date Resolved Date Chest pain 03/21/2017 04/13/2018 Chest pain 04/15/2014 04/13/2018 Peripheral vascular disease 04/13/2018 Encounters Date Type Department Care Team Description 04/21/2025 9:00 AM EDT Office Visit [facility] Part of [address] [place] [address] Castillo Clark MD Essential tremor (Primary Dx) from Last 3 Months Immunizations Immunization Administration Dates Next Due COVID-19, PFIZER PURPLE top, DILUTE for use, (age 12 y+), 30mcg/0.3mL 06/29/2021,06/29/2021,06/29/2021 Influenza Vaccine, unspecified formulation 07/08 Influenza Virus Vaccine 07/26/2015 Influenza, FLUAD, (age 65 y+ ), IM, Quadv, 0.5mL 07/16/2020 Influenza, FLUARIX, FLULAVAL , FLUZONE (age 6 mo+) and AFLURIA, (age 3 y+), Quadv PF, 0.5mL 07/05/2019 Influenza, FLUZONE High Dose , (age 65 y+), IM, Trivalent PF, 0.5mL 07/16/2020 Pneumococcal, PCV-13, PREVNA R 13, (age 6w+), IM, 0.5mL 04/05/2016 Pneumococcal, PPSV23, PNEUMO VAX 23, (age 2y+), SC/IM, 0.5mL 07/05/2019,04/15/2014 Zoster Live (Zostavax) 03/14/2017 Family History Medical History Relation Name Comments No Known Problems Father Relation Name Status Comments Father Mother in childbi rth Social History Tobacco Use Types Packs/Day Years Used Date Smoking Tobacco: Former Cigarettes 1 20 0 03/21/1990 - 03/21/2010 Smokeless Tobacco: Never Tobacco Cessation:Counseling Given: Not Answered Alcohol Use Standard Drinks/Week Comments No 0 [...] Sign Reading Time Taken Comments Blood Pressure 113/56 04/21/2025 8:58 AM EDT Pulse 57 04/21/2025 8:58 AM EDT Temperature 35.6 C (96 F) 04/21/2025 8:58 AM EDT Respiratory Rate 20 04/21/2025 8:58 AM EDT Oxygen Saturation 97% 07/23/2023 10:38 AM EDT Inhaled Oxygen Concentration - - Weight 120.7 kg (266 lb) 04/21/2025 8:58 AM EDT Height 172.7 cm (5' 8 ) 04/21/2025 8:58 AM EDT Body Mass Index 40.45 04/21/2025 8:58 AM EDT Plan of Treatment Upcoming Encounters Date Type Department Care Team (Late st Contact Info) Description 10/20/2025 9:00 AM EST Office Visit [facility] Part of [address] [place] [address] Castillo Clark MD [address] [place] [address] [address] [place] [address] 6 month follow up/ Essential Tremors Health Maintenance Due Date Last Done Comments Depression Monitoring 1962 Hepatitis C screen 1968 Fecal-DNA (Cologuard): Average risk 1995 Sigmoidoscopy/CT colonography 1995 Respiratory Syncytial Virus (RSV) or age 60 yrs+ (1 - Risk 60-74 years 1-dose series) 2010 FIT/FOBT: Average risk 01/01/2019 01/01/2018, 2015 Diabetic Alb to Cr ratio (uACR) test 03/20/2022 03/20/2021, 07/02/2019, 05/25/2018 GFR test (Diabetes, CKD 3-4, OR last GFR 15-59) 09/19/2022 09/19/2021, 07/02/2019, 08/03/2017, Additional history exists Lipids 09/19/2022 09/19/2021, 06/07, 02/11/2018, Additional history exists Diabetic retinal exam 02/26/2023 02/26/2022 , 11/20/2020, 05/24/2020, Additional history exists A1C test (Diabetic or Prediabetic) 03/20/2023 03/20/2022, 09/19/2021, 03/20/2021, Additional history exists Diabetic foot exam 03/20/2023 03/20/2022, 0 03/20/2021, 03/29/2020, Additional history exists COVID-19 Vaccine ( season) 2024 06/29/2021, 06/29/2021, 06/29/2021, Additional history exists Annual Wellness Visit (Medicare Advantage) 10/06/2024 03/20/2022, 07/26/2020 Flu vaccine (#1) 05/06/2025 09/17/2023, 08/2020, 07/16/2020, Additional history exists Colonoscopy 05/31/2029 05/31/2019, 04/13/2019 Colorectal Cancer Screen 05/31/2029 DTaP/Tdap/Td vaccine (2 - Td or Tdap) 03/27/2034 03/27/2024 Pneumococcal 50+ years Vaccine Completed 07/05/2019, 04/05/2016, 04/15/2014 AAA screen Completed 08/02/2020 Shingles vaccine Completed 06/03/2023, , 03/14/2017 Hepatitis A vaccine Aged Out No longe r eligible based on patient's age to complete this topic Hepatitis B vaccine Aged Out No longe r eligible based on patient's age to complete this topic Hib vaccine Aged Out No longer eligi ble based on patient's age to complete this topic Meningococcal (ACWY) vaccine Aged Out No longer eligible based on patient's age to complete this topic Meningococcal B vaccine Aged Out No l onger eligible based on patient's age to complete this topic Polio vaccine Aged Out No longer elig ible based on patient's age to complete this topic Procedures Procedure Name Priority Date/Time Associated Diagnosis Comments POCT GLYCOSYLATED HEMOGLOBIN (HGB A1C) Routine 03/20/2022 8:46 AM EDT Controlled type 2 diabetes mellitus with hyperglycemia, without long-term current use of insulin (HCC) DIABETES EYE EXAM Routine 02/26/2022 COMPREHENSIVE METABOLIC PANEL Routine 09/19/2021 7:55 AM EST Controlled type 2 diabetes mellitus with hyperglycemia, without long-term current use of insulin (HCC) Essential hypertension Pure hypercholesterolemia LIPID PANEL Routine 09/19/2021 7:55 AM EST Controlled type 2 diabetes mellitus with hyperglycemia, without long-term current use of insulin (HCC) Essential hypertension Pure hypercholesterolemia POC ALBUMIN/CREATININE RATIO Routine 03/20/2021 1:33 PM EDT Controlled type 2 diabetes mellitus with hyperglycemia, without long-term current use of insulin (HCC) SCREENING FOR AAA Routine 08/02/2020 8:40 AM EDT Screening for AAA (abdominal aortic aneurysm) COLONOSCOPY Routine 04/13/2019 POCT FECAL IMMUNOCHEMICAL TEST (FIT) Routine 01/01/2018 3:58 PM EDT Screening for colon cancer DIABETES FOOT EXAM Routine 04/13/2015 from Last 3 Months or Most Recently Relevant to Health Maintenance Results * POCT glycosylated hemoglobin (Hb A1C) (03/20/2022 8:46 AM EDT) Hemoglobin A1C 6.7 % BLOOD SPECIMEN / Unknown 03/20/2022 8:46 AM EDT Tona Daniels MD POINT OF CARE TEST ORDERABLES Final Result * DIABETES EYE EXAM (02/26/2022) Historical Provider HEALTH MAINTENANCE Final Result * (ABNORMAL) Lipid Panel (09/19/2021 7:55 AM EST) Cholesterol 135 <200 mg/dL 09/19/2021 7:55 AM [facility] Comment: Cholesterol Guidelines: <200 Desirable 200-240 Borderline >240 Undesirable HDL 30(L) >40 mg/dL 09/19/2021 7:55 AM EST [facility] Comment: HDL Guidelines: <40 Undesirable 40-59 Borderline >59 Desirable LDL Cholesterol 80 0 - 130 mg/dL 09/19/2021 7:55 AM EST [facility] Comment: LDL Guidelines: <100 Desirable 100-129 Near to/above Desirable 130-159 Borderline >159 Undesirable Direct (measured) LDL and calculated LDL are not interchangeable tests. Chol/HDL Ratio 4.5 <5 09/19/2021 7:55 AM EST [facility] Comment: Triglycerides 126 <150 mg/dL 09/19/2021 7:55 AM [facility] Comment: Triglyceride Guidelines: <150 Desirable 150-199 Borderline 200-499 High >499 Very high Based on AHA Guidelines for fasting triglyceride, July 2012. VLDL NOT REPORTED 1 - 30 mg/dL 09/19/2021 7:55 AM [facility] BLOOD SPECIMEN / Unknown 09/19/2021 7:55 AM EST 09/19/2021 7:56 AM EST us Tona Daniels MD CHEMISTRY ORDERABLES Final Re sult [facility] [address] [place] [address], [facility] [phone] [facility] [place] [address], [facility] [phone] * (ABNORMAL) Comprehensive Metabolic Panel (09/19/2021 7:55 AM EST) Glucose 157(H) 70 - 99 mg/dL 09/19/2021 7:55 AM EST [facility] BUN 22 8 - 23 mg/dL 09/19/2021 7:55 AM EST [facility] Creatinine 0.96 0.70 - 1.20 mg/dL 09/19/2021 7:55 AM EST [facility] BUN/Creatinine Ratio 23(H) 9 - 20 09/19/2021 7:55 AM EST [facility] Calcium 8.9 8.6 - 10.4 mg/dL 09/19/2021 7:55 AM [facility] Sodium 133(L) 135 - 144 mmol/L 09/19/2021 7:55 AM [facility] Potassium 4.7 3.7 - 5.3 mmol/L 09/19/2021 7:55 AM [facility] Chloride 96(L) 98 - 107 mmol/L 09/19/2021 7:55 AM [facility] CO2 25 20 - 31 mmol/L 09/19/2021 7:55 AM [facility] Anion Gap 12 9 - 17 mmol/L 09/19/2021 7:55 AM [facility] Alkaline Phosphatase 78 40 - 129 U/L 09/19/2021 7:55 AM [facility] ALT 34 5 - 41 U/L 09/19/2021 7:55 AM [facility] AST 28 <40 U/L 09/19/2021 7:55 AM [facility] Total Bilirubin 0.31 0.30 - 1.20 mg/dL 09/19/2021 7:55 AM [facility] Total Protein 7.4 6.4 - 8.3 g/dL 09/19/2021 7:55 AM [facility] Albumin 4.1 3.5 - 5.2 g/dL 09/19/2021 7:55 AM [facility] Albumin/Globuli n Ratio NOT REPORTED 1.0 - 2.5 09/19/2021 7:55 AM [facility] GFR Non- >60 >60 mL/min 09/19/2021 7:55 AM [facility] GFR >60 >60 mL/min 09/19/2021 7:55 AM [facility] GFR Comment 09/19/2021 7:55 AM [facility] Comment: Average GFR for 70 or more years old: 75 mL/min/1.73sq m Chronic Kidney Disease: <60 mL/min/1.73sq m Kidney failure: <15 mL/min/1.73sq m eGFR calculated using average adult body mass. Additional eGFR calculator available at: http://www.[place].VictorOps/multiple_crcl_2012.htm GFR Staging NOT REPORTED 09/19/2021 7:55 AM EST [facility] BLOOD SPECIMEN / Unknown 09/19/2021 7:55 AM EST 09/19/2021 7:56 AM EST us Tona Daniels MD CHEMISTRY ORDERABLES Final Re sult [facility] [place] [facility] [address] [place] [address], [facility] [phone] * POCT microalbumin (03/20/2021 1:33 PM EDT) Albumin Urine 80mg Creatinine Ur POCT 200mg Albumin/Creatin ine Ratio 30-300mg Comment:abnormal Urine 03/20/2021 1:33 PM EDT Tona Daniels MD POINT OF CARE TEST ORDERABLES Final Result * US SCREENING FOR AAA (08/02/2020 8:40 AM EDT) Anatomical Region Laterality Modality Ultrasound 08/02/2020 8:50 AM EDT Impressions 08/02/2020 8:53 AM EDT No evidence of aneurysm in the visualized abdominal aorta. Narrative 08/02/2020 8:53 AM EDT EXAMINATION: RETROPERITONEAL ULTRASOUND OF THE AORTA 08/02/2020 COMPARISON: None HISTORY: ORDERING SYSTEM PROVIDED HISTORY: Screening for AAA (abdominal aortic aneurysm) FINDINGS: Exam is suboptimal due to patient morbid obesity. Aorta: Proximal: Not visualized Mid: 1.4 x 1.6 cm Distal: 0.8 x 1.1 cm Iliacs: Bilateral iliac arteries are not visualized. Procedure Note Wesley Aquino MD - 08/02/2020 EXAMINATION: RETROPERITONEAL ULTRASOUND OF THE AORTA 08/02/2020 COMPARISON: None HISTORY: ORDERING SYSTEM PROVIDED HISTORY: Screening for AAA (abdominal aortic aneurysm) FINDINGS: Exam is suboptimal due to patient morbid obesity. Aorta: Proximal: Not visualized Mid: 1.4 x 1.6 cm Distal: 0.8 x 1.1 cm Iliacs: Bilateral iliac arteries are not visualized. IMPRESSION: No evidence of aneurysm in the visualized abdominal aorta. Tona aDniels MD [facility] [place] ORDERABLES Final Resul t * COLONOSCOPY (04/13/2019) Historical Provider HEALTH MAINTENANCE Final Result * POCT Fecal Immunochemical Test (FIT) (01/01/2018 3:58 PM EDT) Occult Blood Fecal Negative Control Present STOOL SPECIMEN / Unknown 01/01/2018 3:58 PM EDT Result [facility] Isaias Tipton DO POINT OF CARE TEST ORDERABLES Final Result * DIABETES FOOT EXAM (04/13/2015) Historical Provider HEALTH MAINTENANCE Final Result from Last 3 Months or Most Recently Relevant to Health Maintenance Insurance [employer] MEDICARE Advance Directives * Full Code (Latest Code Status on File) Date Activated Date Inactivated Comments 05/31/2019 7:49 AM 05/31/2019 12:49 PM * Full Code Date Activated Date Inactivated Comments 08/02/2017 2:49 AM 08/03/2017 9:50 PM * Full Code Date Activated Date Inactivated Comments 08/02/2017 2:49 AM 08/02/2017 2:49 AM * Full Code Date Activated Date Inactivated Comments 07/10/2017 8:42 AM 07/11/2017 5:36 PM * Full Code Date Activated Date Inactivated Comments 03/21/2017 2:47 AM 03/21/2017 5:42 PM Healthcare Agents on File Name Relationship [facility] Zahra Latanya Spouse Primary Decision Maker Care Teams Photo Checker Relationship Specialty Start Date End Date Shaikh Mcnally MD PCP - General 10/01/22
--- OUTSIDE RECORDS SUMMARY | 2025-05-10 10:15 | XMS_ITS | Encounter Summary ---
Author Organization [facility] Address [address] [facility] [place] [address] Care Team Providers Care Nail Specialist Name Role Phone Shaikh KODY Mcnally Unavailable [phone] Shaikh KODY Mcnally Primary Care Provider [phone] Zoë Beckford RIDING DOUBLE Unavailable Unavailable Demetrio Lowry MD Primary Care Provider [phone] Daniella Resendez HEAVY MACHINERY OPERATOR Unavailable [phone] Nichol Lee RIDING DOUBLE Unavailable Gina Li MA Unavailable [phone] Encounter Details Date Type Department Care Team (Late st Contact Info) Description 03/29/2024 [facility] [address] [place] [address] Shaikh Mcnally MD [address] [place] [address] Social History Tobacco Use Types Packs/Day Years [...] How often do you attend chur or advent services? Never 2023 Do you belong to any clubs o r organizations such as spiritism groups, unions, fraternal or athletic groups, or [...] Recorded Patient Health Questionnaire-2 Score 0 03/16/2024 [facility] - Occupational Stress [...] money to buy more. Never true 09/18/20 Within the past 12 months, t he [...] Office Visit [facility] [address] [place] [address] Demetrio Lowry MD [address] [place] [address] 07/05/2025 1:30 PM EDT Office Visit [facility] [place] [facility] [address] [place] [phone] Renetta Lux MD [address] [place] [id number] documented as of this encounter Visit Diagnoses Not on filedocumented in this encounter Additional Health Concerns Assessment Noted Time PHQ-9 Depression Total Score: 5 09/18/20 9:50 AM EST A fall risk assessment has been complete d for the patient 02/11/2024 2:24 PM EDT documented as of this encounter Care Teams Nail Specialist Relationship Specialty Start Date End Date Shaikh Mcnally MD [address] [place] [phone] PCP - Devoted 06/06/22 10/05/24 Shaikh Mcnally MD [address] [place] [phone] PCP - General Internal Medicine 12/16/23 05/10/24 Demetrio Lowry MD [address] [place] [phone] PCP - General Family Medicine 05/11/24 Zoë Beckford LPN Licensed Practical Nurse Family Medicine 02/09/24 Daniella Resendez NP [address] [place] [address] Nurse Practitioner Family Medicine 05/11/24 12/15/24 Nichol Lee LPN [address] [place] [address] Licensed Practical Nurse Family Medicine 06/18/2408/13 Gina Li, IBETH [address] [place] [address] Family Medicine 08/13/24 01/12/25 documented as of this encounter
--- OUTSIDE RECORDS SUMMARY | 2025-05-10 10:15 | XMS_ITS | Encounter Summary ---
Author Organization [facility] Address [address] [facility], [address] [place] [address] Care Team Providers Care Clipman Name Role Phone Shaikh KODY Mcnally Primary Care Provider [phone] Reason for Visit * Reason Comments Medication Refill Encounter Details Date Type Department Care Team (Late st Contact Info) Description 12/09/2016 Refill [facility] [place] [address] [place] [address] [address], [place] [address] Medication Refill Social History Tobacco Use Types Packs/Day Years Used Date Smoking Tobacco: Former Sex and Gender Information Value Date Recorded Sex Assigned at Not on file Legal Sex Male 12:36 PM EST Gender Identity Not on file Sexual Orientation Not on file documented as of this encounter Plan of Treatment Upcoming Encounters Date Type Department Care Team (Late Contact Info) Description 10/20/2025 9:00 AM EST Office Visit [facility] Part of [address] [place] [address] Castillo Clark MD [address] [place] [address] [address] [place] [phone] 6 month follow up/ Essential Tremors documented as of this encounter Visit Diagnoses Not on filedocumented in this encounter Additional Health Concerns Infection Onset Date Last Indicated Resolved Time COVID-19 (Rule Out) 07/19/2021 07/19/2021 07/20/20 21 1:10 PM EDT documented as of this encounter Care Teams Clipman Relationship Specialty Start Date End Date Shaikh Mcnally MD PCP - General 10/01/22 documented as of this encounter
--- OUTSIDE RECORDS SUMMARY | 2025-05-10 10:15 | XMS_ITS | Encounter Summary ---
Author Organization [facility] Address [address] [place] [address] Care Team Providers Care Public Health Training Assistant Name Role Phone Shaikh KODY Mcnally Unavailable [phone] Demetrio Lowry MD Primary Care Provider [phone] Daniella Kulkarni NP Unavailable [phone] Gina Li MA Unavailable [phone] Encounter Details Date Type Department Care Team (Late st Contact Info) Description 09/15/2024 Clinisync Result Encounter [facility] External Department Unsolicited Daniella Kulkarni NP Social History Tobacco Use Types Packs/Day Years [...] 2023 How often do you attend chur ch or orthodox services? Never 2023 Do you belong to [...] Date Recorded Patient Health Questionnaire-2 Score 0 06/17/2024 [facility]ational Stress Questionnaire Answer Date [...] Office Visit [facility] [address] [place] [address] Demetrio Lowry MD [address] [place] [address] 07/05/2025 1:30 PM EDT Office Visit [facility] [address] [place] [address] Renetta Lux MD [address], [address] [place] [address] documented as of this encounter Procedures Procedure Name Priority Date/Time Associated Diagnosis Comments XR CHEST 2V 09/15/2024 6:07 PM EST documented in this encounter Results * XR CHEST 2V (09/15/2024 6:07 PM EST) Anatomical Region Laterality Modality Other 09/15/2024 6:07 PM EST Narrative 09/15/2024 6:10 PM EST The [address] [address] XRay Report Signed Patient: FEMI PELAEZ MR#: [id number] : 1950 Acct:[id number] Age/Sex: 73 / M ADM Date: 09/15/24 Loc: RAD Attending Dr: DANIELLA KULKARNI Ordering Physician: DANIELLA KULKARNI Date of Service: 09/15/24 Procedure(s): XR chest 2V Accession Number(s): [id number] cc: DANIELLA KULKARNI [place] [address] Patient Name: FEMI PELAEZ MRN: [id number] date: 1950 Sex: M Assigned Patient Location: RAD Current Patient Location: RAD Accession/Order Number: [id number] Exam Date: 09/15/2024 11:16 Report Date: 09/15/2024 18:07 At the request of: DANIELLA KULKARNI Procedure: XR chest 2V EXAM: XR chest 2V HISTORY: Shortness Of Breath COMPARISON: 04/24/2022 TECHNIQUE: Upright PA and lateral chest x-ray FINDINGS: Lungs are clear, without evidence of a focal infiltrate, effusion or pneumothorax. The heart is not enlarged and the vasculature is not distended. The osseous structures are grossly intact. XR/XR chest 2V IMPRESSION: No acute infiltrate or evidence of cardiac decompensation, and the overall appearance of the chest is essentially unchanged. Electronically authenticated by: NIKUNJ PINO Date: 09/15/2024 18:07 Dictated By: Nikunj Pino M.D. Signed By: 09/15/241809 DD/ 06 TD/TT: Women'S Swim Coach: Procedure Note Radiology, Radiologist, MD - 09/15/2024 [place] [address] XRay Report Signed Patient: FEMI PELAEZ WMR#: [id number] : 1950Acct:[id number] Age/Sex: 73 / MADM Date: 09/15/24 Loc: [facility] Attending Dr: DANIELLA KULKARNI Ordering Physician: DANIELLA KULKARNI Date of Service: 09/15/24 Procedure(s): XR chest 2V Accession Number(s): [id number] cc: DANIELLA KULKARNI [address] [address] Patient Name: FEMI PELAEZ MRN: [id number] date: 1950 Sex: M Assigned Patient Location: RAD Current Patient Location: RAD Accession/Order Number: [id number] Exam Date: 09/15/2024 11:16 Report Date: 09/15/2024 18:07 At the request of: DANIELLA KULKARNI Procedure: XR chest 2V EXAM: XR chest 2V HISTORY: Shortness Of Breath COMPARISON: 04/24/2022 TECHNIQUE: Upright PA and lateral chest x-ray FINDINGS: Lungs are clear, without evidence of a focal infiltrate,effusion or pneumothorax. The heart is not enlarged and the vasculature is notdistended. The osseous structures are grossly intact. XR/XR chest 2V IMPRESSION: No acute infiltrate or evidence of cardiac decompensation, and the overall appearance of the chest is essentially unchanged. Electronically authenticated by: NIKUNJ PINO Date: 09/15/2024 18:07 Dictated By: Nikunj Pino M.D. Signed By:09/15/241809 DD/ 06 TD/TT: Women'S Swim Coach: Daniella Kulkarni GAME TECHNICIAN [facility] Final Result documented in this encounter Visit Diagnoses Not on filedocumented in this encounter Additional Health Concerns Assessment Noted Time PHQ-9 Depression Total Score: 5 09/18/20 23 9:50 AM EST A fall risk assessment has been complete d for the patient 02/11/2024 2:24 PM EDT documented as of this encounter Care Teams Public Health Training Assistant Relationship Specialty Start Date End Date Shaikh Mcnally MD [address] [place] [address] PCP - Devoted 06/06/22 10/05/24 Demetrio Lowry MD [address] [place] [address] PCP - General Family Medicine 05/11/24 Daniella Kulkarni NP [address] [place] [address] Nurse Practitioner Family Medicine 05/11/24 12/15/24 Gina Li, IBETH [address] [place] [address] Family Medicine 08/13/24 01/12/25 documented as of this encounter
--- OUTSIDE RECORDS SUMMARY | 2025-05-10 10:15 | XMS_ITS | Encounter Summary ---
Author Organization [facility] Address [address] [place] [address] Care Team Providers Care Railroad Car Repairman Name Role Phone Shaikh KODY Mcnally Unavailable [phone] Shaikh KODY Mcnally Primary Care Provider [phone] Zoë Beckford LPN Unavailable Unavailable Demetrio Lowry MD Primary Care Provider [phone] Daniella Resendez NP Unavailable [phone] Nichol Lee RETAIL LEADER Unavailable Gina Li MA Unavailable [phone] Encounter Details Date Type Department Care Team (Late st Contact Info) Description 04/26/2024 Clinisync Result Encounter [facility] External Department Unsolicited Provider, Generic External Data Social History Tobacco Use Types Packs/Day Years [...] How often do you attend chur or mormon services? Never 2023 Do you belong to any clubs o r organizations such as rastafarian groups, unions, fraternal or athletic groups, or [...] Date Recorded Patient Health Questionnaire-2 Score 0 04/06/2024 [facility] Answer Date Recorded [...] Office Visit [facility] [address] [place] [address] Demetrio Lowry MD [address] [place] [address] 07/05/2025 1:30 PM EDT Office Visit [facility] [address] [place] [address] Renetta Lux MD [address], [address] [place] [address] documented as of this encounter Procedures Procedure Name Priority Date/Time Associated Diagnosis Comments CA ECHO DOPPLER COMPLETE 04/26/2024 3:39 PM EDT documented in this encounter Results * CA ECHO DOPPLER COMPLETE (04/26/2024 3:39 PM EDT) Anatomical Region Laterality Modality Other 04/26/2024 3:39 PM EDT Narrative 04/26/2024 3:40 PM EDT The [address] [address] Cardiology Report Signed Patient: FEMI PELAEZ MR#: [id number] : 1950 Acct:[id number] Age/Sex: 73 / M ADM Date: 04/26/24 Loc: CARD Attending Dr: Gaetano Tovar M.D. Ordering Physician: Gaetano Tovar M.D. Date of Service: 04/26/24 Procedure(s): CA echo doppler complete Accession Number(s): [id number] cc: Gaetano Tovar M.D.; Shaikh Ketan Mcnally Patient Name: FEMI PELAEZ MR#: [id number] : 1950 Exam Date: 04/26/2024 Ordering Doctor: DR GAETANO TOVAR M.D. ECHOCARDIOGRAM REPORT PROCEDURE: CA ECHO DOPPLER COMPLETE INDICATIONS: ALLISON COMPARISON: None. DESCRIPTION: COMPLETE ECHOCARDIOGRAM Real-time transthoracic echocardiography with 2D, M-mode, spectral and color flow Doppler performed. QUALITY: Technical quality was good. LEFT VENTRICLE: Normal chamber size. Mild left ventricular hypertrophy. LV EF: Global left ventricular systolic function is hyperdynamic. Visual estimation of left ventricular ejection fraction is 65-70%. No segmental wall motion abnormalities DIASTOLIC: Grade 2, moderate diastolic dysfunction. ATRIAL SEPTUM: Inadequately seen LEFT ATRIUM: Mild dilatation. RIGHT ATRIUM: Normal chamber size. RIGHT VENTRICLE: Normal chamber size. Normal right ventricular systolic function. TRICUSPID VALVE: Normal mobility and thickness. No stenosis with mild regurgitation. Mild pulmonary hypertension. RVSP 42mmHg MITRAL VALVE: Normal mobility and thickness. No evidence of mitral valve stenosis. Mild mitral annular calcification. Trivial mitral regurgitation. AORTIC VALVE: Normal trileaflet appearance. No visible sclerosis. Normal leaflet mobility. No evidence of aortic valve stenosis. No aortic regurgitation. AORTIC ROOT: Normal diameter and appearance. PULMONIC VALVE: Normal thickness and mobility. No stenosis. Trivial regurgitation. PERICARDIUM: Anterior free space; trivial effusion versus fat pad. IVC: Collapses with inspirations. Normal size. CONCLUSION: 1. Global left ventricular systolic function is hyperdynamic; visually estimated ejection fraction is 65 to 70% 2. Normal right ventricular size and systolic function 3. Mild left ventricular hypertrophy 4. Grade 2, moderate diastolic dysfunction 5. Mild tricuspid regurgitation 6. Mildly elevated right ventricular systolic pressure; RVSP 42 mmHg 7. Anterior free space; trivial effusion versus fat pad Adult Echocardiography Procedure Report Left Ventricle LVEDD (3.7 - 5.6 cm): 4.26 cm LVESD (2.2 - 4.0 cm): 2.88 cm LVIVS thickness (0.6 - 1.2 cm): 1.23 cm LVPW thickness (0.5 - 1.0 cm): 1.02 cm e': 0.07 m/s E - e': 10.44 LVOT Max Gradient: 5.68 mm[Hg] LVOT Area (cm2): 1.19 m/s Peak Velocity (LVOT): 1.19 m/s Mean Velocity (LVOT): 0.91 m/s LVOT Diameter 2.13 cm Left Ventricular Ejection Fraction: 69.56 % Left Atrium LA Volume Index (2D A2C): 37.88 ml/m2 Left Atrium Systolic Dimension: 4.54 cm Mitral Valve MV E to A Ratio: 1.23 Mitral Valve A-Wave Peak Velocity: 0.58 m/s Mitral Valve E-Wave Peak Velocity: 0.72 m/s Right Ventricle RV Internal Diastolic Dimension: 2.79 cm Aorta AO Root Diam: 3.67 cm Ascending Ao Diam: 3.54 cm Aortic Valve AoV Area (Peak Garrison): 2.60 cm2, 2.60 cm2 AoV Area (VTI): 3.55 cm2, 3.55 cm2 Peak Velocity(Antegrade Flow): 1.63 m/s Peak Gradient(Antegrade Flow): 10.68 mm[Hg] Mean Velocity(Antegrade Flow): 1.19 m/s Mean Gradient(Antegrade Flow): 6.27 mm[Hg] Velocity Time Integral: 37.81 cm Tricuspid Valve Peak Velocity (Regurgitant Flow): 2.40 m/s, 3.12 m/s, 2.74 m/s Pulmonic Valve Mean Gradient: 1.76 mm[Hg] Mean Velocity: 0.63 m/s Peak Velocity: 0.91 m/s, 0.73 m/s Peak Gradient: 2.11 mm[Hg], 3.32 mm[Hg] Right Atrium Right Atrium Systolic Pressure: 33.41 ml, 33.41 ml Dictated by: Gaetano Tovar M.D. on 04/26/2024 at 15:34 Approved by: Gaetano Tovar M.D. on 04/26/2024 at 15:39 Dictated By: Gaetano Tovar M.D. Signed By: 04/26/24 1540 DD/ 1539 TD/TT: Front Sight Attacher: Procedure Note Radiology, Radiologist, - 04/26/2024 [place] [address] Cardiology Report Signed Patient: FEMI PELAEZ WMR#: [id number] : 1950Acct:[id number] Age/Sex: 73 / MADM Date: 04/26/24 Loc: CARD Attending Dr: Gaetano Tovar M.D. Ordering Physician: Gaetano Tovar M.D. Date of Service: 04/26/24 Procedure(s): CA echo doppler complete Accession Number(s): [id number] cc: Gaetano Tovar M.D.; Shaikh Ketan Mcnally Patient Name: FEMI PELAEZ MR#: [id number] : 1950 Exam Date: 04/26/2024 Ordering Doctor: DR GAETANO TOVAR M.D. ECHOCARDIOGRAM REPORT PROCEDURE: CA ECHO DOPPLER COMPLETE INDICATIONS: ALLISON COMPARISON: None. DESCRIPTION: COMPLETE ECHOCARDIOGRAM Real-time transthoracic echocardiography with 2D, M-mode, spectral and color flow Dopplerperformed. QUALITY: Technical quality was good. LEFT VENTRICLE: Normal chamber size. Mild left ventricularhypertrophy. LV EF: Global left ventricular systolic function is hyperdynamic.Visual estimation of left ventricular ejection fraction is 65-70%. No segmentalwall motion abnormalities DIASTOLIC: Grade 2, moderate diastolic dysfunction. ATRIAL SEPTUM: Inadequately seen LEFT ATRIUM: Mild dilatation. RIGHT ATRIUM: Normal chamber size. RIGHT VENTRICLE: Normal chamber size. Normal right ventricularsystolic function. TRICUSPID VALVE: Normal mobility and thickness. No stenosis with mild regurgitation. Mild pulmonary hypertension. RVSP 42mmHg MITRAL VALVE: Normal mobility and thickness. No evidence of mitralvalve stenosis. Mild mitral annular calcification. Trivial mitralregurgitation. AORTIC VALVE: Normal trileaflet appearance. No visible sclerosis.Normal leaflet mobility. No evidence of aortic valve stenosis. No aortic regurgitation. AORTIC ROOT: Normal diameter and appearance. PULMONIC VALVE: Normal thickness and mobility. No stenosis. Trivial regurgitation. PERICARDIUM: Anterior free space; trivial effusion versus fat pad. IVC: Collapses with inspirations. Normal size. CONCLUSION: 1. Global left ventricular systolic function is hyperdynamic; visually estimated ejection fraction is 65 to 70% 2. Normal right ventricular size and systolic function 3. Mild left ventricular hypertrophy 4. Grade 2, moderate diastolic dysfunction 5. Mild tricuspid regurgitation 6. Mildly elevated right ventricular systolic pressure; RVSP 42 mmHg 7. Anterior free space; trivial effusion versus fat pad Adult Echocardiography Procedure Report Left Ventricle LVEDD (3.7 - 5.6 cm): 4.26 cm LVESD (2.2 - 4.0 cm): 2.88 cm LVIVS thickness (0.6 - 1.2 cm): 1.23 cm LVPW thickness (0.5 - 1.0 cm): 1.02 cm e': 0.07 m/s E - e': 10.44 LVOT Max Gradient: 5.68 mm[Hg] LVOT Area (cm2): 1.19 m/s Peak Velocity (LVOT): 1.19 m/s Mean Velocity (LVOT): 0.91 m/s LVOT Diameter 2.13 cm Left Ventricular Ejection Fraction: 69.56 % Left Atrium LA Volume Index (2D A2C): 37.88 ml/m2 Left Atrium Systolic Dimension: 4.54 cm Mitral Valve MV E to A Ratio: 1.23 Mitral Valve A-Wave Peak Velocity: 0.58 m/s Mitral Valve E-Wave Peak Velocity: 0.72 m/s Right Ventricle RV Internal Diastolic Dimension: 2.79 cm Aorta AO Root Diam: 3.67 cm Ascending Ao Diam: 3.54 cm Aortic Valve AoV Area (Peak Garrison): 2.60 cm2, 2.60 cm2 AoV Area (VTI): 3.55 cm2, 3.55 cm2 Peak Velocity(Antegrade Flow): 1.63 m/s Peak Gradient(Antegrade Flow): 10.68 mm[Hg] Mean Velocity(Antegrade Flow): 1.19 m/s Mean Gradient(Antegrade Flow): 6.27 mm[Hg] Velocity Time Integral: 37.81 cm Tricuspid Valve Peak Velocity (Regurgitant Flow): 2.40 m/s, 3.12 m/s, 2.74 m/s Pulmonic Valve Mean Gradient: 1.76 mm[Hg] Mean Velocity: 0.63 m/s Peak Velocity: 0.91 m/s, 0.73 m/s Peak Gradient: 2.11 mm[Hg], 3.32 mm[Hg] Right Atrium Right Atrium Systolic Pressure: 33.41 ml, 33.41 ml Dictated by: Gaetano Tovar M.D. on 04/26/2024 at 15:34 Approved by: Gaetano Tovar M.D. on 04/26/2024 at 15:39 Dictated By: Gaetano Tovar M.D. Signed By:04/26/24 1540 DD/ 1539 TD/TT: Front Sight Attacher: us Generic External Data Provider [facility] Final Result documented in this encounter Visit Diagnoses Not on filedocumented in this encounter Additional Health Concerns Assessment Noted Time PHQ-9 Depression Total Score: 5 09/18/20 23 9:50 AM EST A fall risk assessment has been complete d for the patient 02/11/2024 2:24 PM EDT documented as of this encounter Care Teams Railroad Car Repairman Relationship Specialty Start Date End Date Shaikh Mcnally MD [address] [place] [address] PCP - Devoted 06/06/22 10/05/24 Shaikh Mcnally MD [address] [place] [address] PCP - General Internal Medicine 12/16/23 05/10/24 Demetrio Lowry MD [address] [place] [address] PCP - General Family Medicine 05/11/24 Zoë Beckford LPN Licensed Practical Nurse Family Medicine 02/09/24 Daniella Resendez NP [address] [place] [address] Nurse Practitioner Family Medicine 05/11/24 12/15/24 Nichol Lee LPN [address] [place] [address] Licensed Practical Nurse Family Medicine 06/18/2408/13 Gina Li, IBETH [address] [place] [address] Family Medicine 08/13/24 01/12/25 documented as of this encounter
--- OUTSIDE RECORDS SUMMARY | 2025-05-10 10:16 | XMS_ITS | Encounter Summary ---
Author Organization [facility] Address [address], [address] [place] [address] Care Team Providers Care Light Rail Signal Technician Name Role Phone Shaikh KODY Mcnally Primary Care Provider [phone] Encounter Details Date Type Department Care Team (Late st Contact Info) Description 08/01/2017 Direct Admit Orders [facility] [address] [place] [address] Nelli Slaughter MD Social History Tobacco Use Types Packs/Day Years Used Date Smoking Tobacco: Former Cigarettes Q uit: 03/21/2010 Smokeless Tobacco: Never Alcohol Use Standard Drinks/Week Comments No 0 (1 standard drink = 0.6 oz pur e alcohol) Sex and Gender Information Value Date Recorded Sex Assigned at Not on file Legal Sex Male 12:36 PM EST Gender Identity Not on file Sexual Orientation Not on file documented as of this encounter Plan of Treatment Upcoming Encounters Date Type Department Care Team (Late st Contact Info) Description 10/20/2025 9:00 AM EST Office Visit [facility] Part of [address] [place] [phone] Castillo Clark MD [address] [place] [address] [address] [place] [address] 6 month follow up/ Essential Tremors documented as of this encounter Visit Diagnoses Not on filedocumented in this encounter Additional Health Concerns Infection Onset Date Last Indicated Resolved Time COVID-19 (Rule Out) 07/19/2021 07/19/2021 07/20/20 21 1:10 PM EDT documented as of this encounter Care Teams Light Rail Signal Technician Relationship Specialty Start Date End Date Shaikh Mcnally MD PCP - General 10/01/22 documented as of this encounter
--- OUTSIDE RECORDS SUMMARY | 2025-05-10 10:17 | XMS_ITS | Encounter Summary ---
Author Organization [facility] Address [address] [place] [address] Care Team Providers Care Size Cutter Name Role Phone Shaikh KOYD Mcnally Primary Care Provider [phone] Shaikh KODY Mcnally Unavailable [phone] Shaikh KODY Mcnally Primary Care Provider [phone] Zoë Beckford PHOTOENGRAVING PRINTER Unavailable Unavailable Demetrio Lowry MD Primary Care Provider [phone] Daniella Resendez ELECTRICAL MAINTENANCE SUPERVISOR Unavailable [phone] Nichol Lee PHOTOENGRAVING PRINTER Unavailable Gina Li MA Unavailable [phone] Reason for Visit * Reason Comments Med Refill Encounter Details Date Type Department Care Team (Late st Contact Info) Description 09/06/2023 [facility] [address] [place] [address] Shaikh Mcnally MD [address] [place] [address] Gastro-esophageal reflux disease without esophagitis; Esophageal reflux Social History Tobacco Use Types Packs/Day Years Used Date Smoking Tobacco: Never Assessed Sex and Gender Information Value Date Recorded Sex Assigned at Not on file Legal Sex Male 7:05 PM EDT Gender Identity Not on file Sexual Orientation Not on file documented as of this encounter Miscellaneous Notes * Telephone Encounter - Shaikh Dali MD - 09/08/2023 1:21 PM EST Approving, but needs appt for additional refills. documented in this encounter Plan of Treatment Upcoming Encounters Date Type Department Care Team (Late st Contact Info) Description 06/21/2025 9:15 AM EDT Office Visit [facility] [address] [place] [address] Demetrio Lowry MD [address] [place] [address] 07/05/2025 1:30 PM EDT Office Visit [facility] [address] [place] [address] Renetta Lux MD [address] [place] [address] documented as of this encounter Visit Diagnoses Diagnosis Gastro-esophageal reflux disease without esophagitis Esophageal reflux documented in this encounter Care Teams Size Cutter Relationship Specialty Start Date End Date Shaikh Mcnally MD PCP - General Internal Medicine 04/17/23 12/15/23 Shaikh Mcnally MD [address] [place] [address] PCP - Devoted 06/06/22 10/05/24 Shaikh Mcnally MD [address] [place] [address] PCP - General Internal Medicine 12/16/23 05/10/24 Demetrio Lowry MD [address] [place] [address] PCP - General Family Medicine 05/11/24 Zoë Beckford LPN Licensed Practical Nurse Family Medicine 02/09/24 Daniella Resendez NP [address] [place] [place] [address] Nurse Practitioner Family Medicine 05/11/24 12/15/24 Nichol Lee LPN [address] [place] [address] Licensed Practical Nurse Family Medicine 06/18/2408/13 Gina Li, IBETH [address] [place] [address] Family Medicine 08/13/24 01/12/25 documented as of this encounter
--- OUTSIDE RECORDS SUMMARY | 2025-05-10 10:17 | XMS_ITS | Encounter Summary ---
Author Organization [facility] Address [address] [place] [address] Care Team Providers Care Vehicle Fuel Systems Converter Name Role Phone Shaikh KODY Mcnally Primary Care Provider [phone] Shaikh KODY Mcnally Unavailable [phone] Shaikh KODY Mcnally Primary Care Provider [phone] Zoë Beckford DATA SYSTEMS ANALYST Unavailable Unavailable Demetrio Lowry MD Primary Care Provider [phone] Daniella Resendez COAL HANDLER Unavailable [phone] Nichol Lee DATA SYSTEMS ANALYST Unavailable Gina Li MA Unavailable [phone] Encounter Details Date Type Department Care Team (Late st Contact Info) Description 09/15/2023 Orders Only [facility] [address] [place] [address] Shaikh Mcnally MD [address] [place] [address] Social History Tobacco Use Types Packs/Day Years Used Date Smoking Tobacco: Never Assessed Humiliation, Afraid, Rape, and Kick questionnair e [...] How often do you attend chur or congregation services? Never 2023 Do you belong to any clubs o r organizations such as latter-day groups, unions, fraternal or athletic groups, or [...] Date Recorded Patient Health Questionnaire-2 Score 0 2023 [facility] of Occupat ional Health - Occupational Stress [...] on file documented as of this encounter Functional Status * Over the past 2 weeks, how often have you been bothered by any of the following problems? Question Answer Date of Assessment Author Little interest or pleasure in doing things Not at all 2023 9:50 AM Gina Mcgovern M A Feeling down, depressed, or hopeless Not at all 2023 9:50 AM Gina Mcgovern M A Patient Health Questionnaire -2 Score 0 2023 9:50 AM Gina Mcgovern M A * Question Answer Date of Assessment Author Trouble falling or staying asleep, or sleeping too much Not at all 2023 9:50 AM Gina Mcgovern M A Feeling tired or having little energy Several days 2023 9:50 AM Gina Mcgovern M A Poor appetite or overeating Nearly every day 2023 9:50 AM Gina Mcgovern M A Feeling bad about yourself - or that you are a failure or have let yourself or your family down Not at all 2023 9:50 AM Gina Mcgovern M A Trouble concentrating on things, such as reading the newspaper or watching television Several days 2023 9:50 AM Gina Mcgovern M A Moving or speaking so slowly that other people could have noticed? Or the opposite - being so fidgety or restless that you have been moving around a lot more than usual. Not at all 2023 9:50 AM Gina Mcgovern M A Thoughts that you would be better off or hurting yourself in some way Not at all 2023 9:50 AM Gina Mcgovern MA Patient Health Questionnaire-9 Score 5 2023 9:50 AM Gina Mcgovern MA documented as of this encounter Plan of Treatment Upcoming Encounters Date Type Department Care Team (Late st Contact Info) Description 06/21/2025 9:15 AM EDT Office Visit [facility] [address] [place] [address] Demetrio Lowry MD [address] [place] [address] 07/05/2025 1:30 PM EDT Office Visit [facility] [address] [place] [address] Renetta Lux MD [address] [place] [address] documented as of this encounter Procedures Procedure Name Priority Date/Time Associated Diagnosis Comments MISCELLANEOUS LAB TEST Routine 07/11/2023 10:57 AM EDT MISCELLANEOUS LAB TEST Routine 07/11/2023 10:47 AM EDT documented in this encounter Results * - Miscellaneous Test (07/11/2023 10:57 AM EDT) us Shaikh Dali [facility] B[facility] ORDERABLES Final Resu lt * - Miscellaneous Test (07/11/2023 10:47 AM EDT) us Shaikh Dali [facility] B[facility] ORDERABLES Final Resu lt documented in this encounter Visit Diagnoses Not on filedocumented in this encounter Care Teams Vehicle Fuel Systems Converter Relationship Specialty Start Date End Date Shaikh Mcnally MD PCP - General Internal Medicine 04/17/23 12/15/23 Shaikh Mcnally MD [address] [place] [address] PCP - Devoted 06/06/22 10/05/24 Shaikh Mcnally MD [address] [place] [address] PCP - General Internal Medicine 12/16/23 05/10/24 Demetrio Lowry MD [address] [place] [address] PCP - General Family Medicine 05/11/24 Zoë Beckford LPN Licensed Practical Nurse Family Medicine 02/09/24 Daniella Resendez NP [address] [place] [address] Nurse Practitioner Family Medicine 05/11/24 12/15/24 Nichol Lee LPN [address] [place] [address] Licensed Practical Nurse Family Medicine 06/18/2408/13 Gina Li, IBETH [address] [place] [address] Family Medicine 08/13/24 01/12/25 documented as of this encounter
--- OUTSIDE RECORDS SUMMARY | 2025-05-10 10:18 | XMS_ITS | Encounter Summary ---
Author Organization [facility] Address [address], [address] [place] [address] Care Team Providers Care Gift Shop Clerk Name Role Phone Shaikh KODY Mcnally Primary Care Provider Reason for Visit * Reason Comments Medication Refill Encounter Details Date Type Department Care Team (Late st Contact Info) Description 03/30/2021 [facility] NEUROLOGY Part of [address] [place] [address] Castillo Clark MD [address] [place] [address] [address] [place] [address] Medication Refill Social History Tobacco Use Types Packs/Day Years Used Date Smoking Tobacco: Former Cigarettes 1 20 0 03/21/1990 - 03/21/2010 Smokeless Tobacco: Never Alcohol Use Standard Drinks/Week Comments No 0 (1 standard drink = 0.6 oz pur e alcohol) Overall Financial Resource Strain (CARDIA) Answe r Date Recorded How hard is it for you to pa y for the very basics like food, housing, medical care, and heating? Not hard at all 03/20/2021 PHQ-2 Answer Date Recorded PHQ-9 Total Score 0 03/20/2021 Hunger Vital Sign Answer Date Recorded Within the past 12 months, y ou worried that your food would run out before you got the money to buy more. Never true 03/20/20 21 Within the past 12 months, t he food you bought just didn't last and you didn't have money to get more. Never true 03/20/2021 Sex and Gender Information Value Date Recorded Sex Assigned at Not on file Legal Sex Male 12:36 PM EST Gender Identity Not on file Sexual Orientation Not on file documented as of this encounter Plan of Treatment Upcoming Encounters Date Type Department Care Team (Late st Contact Info) Description 10/20/2025 9:00 AM EST Office Visit [facility] NEUROLOGY Part of [address] [place] [address] Castillo Clark MD [address] [place] [address] [address] [place] [address] 6 month follow up/ Essential Tremors documented as of this encounter Visit Diagnoses Not on filedocumented in this encounter Additional Health Concerns Infection Onset Date Last Indicated Resolved Time COVID-19 (Rule Out) 07/19/2021 07/19/2021 07/20/20 1:10 PM EDT Assessment Noted Time A fall risk assessment has been complete d for the patient 07/26/2020 9:52 AM EDT documented as of this encounter Care Teams Gift Shop Clerk Relationship Specialty Start Date End Date Shaikh Mcnally MD PCP - General 10/01/22 documented as of this encounter
--- OUTSIDE RECORDS SUMMARY | 2025-05-10 10:18 | XMS_ITS | Encounter Summary ---
Author Organization [facility] Address [address] [place] [address] Care Team Providers Care Lead Infrastructure Architect Name Role Phone Shaikh KODY Mcnally Primary Care Provider [phone] Shaikh KODY Mcnally Unavailable [phone] Shaikh KODY Mcnally Primary Care Provider [phone] Zoë Beckford LPN Unavailable Unavailable Demetrio Lowry MD Primary Care Provider [phone] Daniella Resendez DISTRICT AGENT Unavailable [phone] Nichol Lee OFFICE REP Unavailable Gina Li MA Unavailable [phone] Reason for Visit * Reason Comments Med Refill Encounter Details Date Type Department Care Team (Late st Contact Info) Description 2023 Refill [facility] [address] [place] [address] Shaikh Mcnally MD [address] [place] [address] Hyperlipidemia, unspecified Social History Tobacco Use Types Packs/Day Years Used Date Smoking Tobacco: Former Cigarettes Smokeless Tobacco: Never Alcohol Use Standard Drinks/Week [...] How often do you attend chur or sabianist services? Never 2023 Do you belong to any clubs o r organizations such as confucianism groups, unions, fraternal or athletic groups, or [...] Recorded Patient Health Questionnaire-2 Score 0 2023 [facility] [place] of Occupat ional Health - Occupational Stress [...] Not at all 2023 9:50 AM Gina Mcgovern, M A Trouble concentrating on things, such as reading the newspaper or watching television Several days 2023 9:50 AM EST Gina Li M A Moving or speaking so slowly [...] Mcgovern MA documented as of this encounter Miscellaneous Notes * Telephone Encounter - Shaikh Dali MD - 2023 1:36 PM EST Approving, but needs appt for additional refills. documented in this encounter Plan of Treatment Upcoming Encounters Date Type Department Care Team (Late st Contact Info) Description 06/21/2025 9:15 AM EDT Office Visit [facility] [address] [place] [address] Demetrio Lowry MD [address] [place] [address] 07/05/2025 1:30 PM EDT Office Visit [facility] [address] [place] [address] Renetta Lux MD [address] [place] [address] documented as of this encounter Visit Diagnoses Diagnosis Hyperlipidemia, unspecified documented in this encounter Additional Health Concerns Assessment Noted Time PHQ-9 Depression Total Score: 5 09/18/20 9:50 AM EST documented as of this encounter Care Teams Lead Infrastructure Architect Relationship Specialty Start Date End Date Shaikh Mcnally MD PCP - General Internal Medicine 04/17/23 12/15/23 Shaikh Mcnally MD [address] [place] [address] PCP - Devoted 06/06/22 10/05/24 Shaikh Mcnally MD [address] [place] [address] PCP - General Internal Medicine 12/16/23 05/10/24 Demetrio Lowry MD [address] [place] [address] PCP - General Family Medicine 05/11/24 Zoë Beckford LPN Licensed Practical Nurse Family Medicine 02/09/24 Daniella Resendez NP [address] [place] [address] Nurse Practitioner Family Medicine 05/11/24 12/15/24 Nichol Lee LPN [address] [place] [address] Licensed Practical Nurse Family Medicine 06/18/2408/13 Gina Li, IBETH [address] [place] [address] Family Medicine 08/13/24 01/12/25 documented as of this encounter
--- OUTSIDE RECORDS SUMMARY | 2025-05-10 10:19 | XMS_ITS | Clinical Summary ---
Author Organization [facility] Address [address] [place] [address] Care Team Providers Care Tie Fastener Name Role Phone Demetrio Lowry MD Primary Care Provider Allergies No known active allergies Medications atorvastatin (Lipitor) 80 mg tablet Take 80 mg by mouth at bedtime. 09/20/20 22 Active omeprazole (PriLOSEC) [address] capsule Take by mouth in the morning. 09/19/20 22 Active glimepiride (Amaryl) 2 mg tablet TAKE 1 TABLET BY MOUTH EVERY DAY BEFORE BREAKFAST 10/12/19 23 Active gabapentin (Neurontin) 300 mg capsule Take 300 mg by mouth in the morning, afternoon, and at bedtime. 09/20/20 22 Active primidone (Mysoline) 50 mg tablet Take 150 mg by mouth in the morning. 09/19/20 22 Active donepezil (Aricept) 10 mg tablet Take 10 mg by mouth at bedtime. 08/29/20 22 Active traZODone (Desyrel) 50 mg tablet Take 50 mg by mouth at bedtime. 08/15/20 22 Active aspirin 81 mg EC tablet Take 81 mg by mouth. Active cholecalciferol, vitamin D3, 50 mcg (2,000 unit) capsule Take 1 capsule by mouth in the morning. Active nitroglycerin (Nitrostat) 0.[address] 0.4 mg under the tongue. 12/16/19 20 Active Rybelsus 7 mg tablet 04/01/20 23 Active albuterol 90 mcg/actuation inhaler 09/16/20 21 Active Januvia 100 mg tablet Take 100 mg by mouth in the morning. 04/29/20 24 Active Incruse Ellipta 62.5 mcg/actuation inhalation Inhale 1 puff in the morning. Active dilTIAZem (Cardizem) 60 mg immediate release tabletIndications :Essential hypertension Take 1 tablet (60 mg) by mouth in the morning and at bedtime. 180 tablet 3 07/08/20 24 025 Active Trelegy Ellipta 200-62.5-25 mcg blister with device INHALE 1 PUFF BY MOUTH ONCE A DAY 07/28/20 24 Active dapagliflozin propanediol (Farxiga) 10 mgIndications:Ja ign hypertensive heart disease without congestive heart failure Take 1 tablet (10 mg) by mouth in the morning. 30 tablet 11 08/02/20 24 025 Active ramipril (Altace) 5 mg capsuleIndication s:Essential hypertension Take 2 capsules (10 mg) by mouth in the morning. 180 capsule 3 11/24/19 25 026 Active sertraline (Zoloft) 50 mg tablet Take 50 mg by mouth in the morning. Active sotalol (Betapace) 120 mg tabletIndications :Paroxysmal atrial fibrillation (CMS/HCC) TAKE 1 TABLET BY MOUTH IN THE MORNING AND 1 TABLET AT BEDTIME 180 tablet 3 03/11/20 25 Active Eliquis 5 mg tabletIndications :Paroxysmal atrial fibrillation (CMS/HCC) TAKE 1 TABLET BY MOUTH IN THE MORNING AND IN THE EVENING 180 tablet 3 03/11/20 25 Active furosemide (Lasix) 20 mg tabletIndications :Benign hypertensive heart disease without congestive heart failure TAKE 1 TABLET BY MOUTH EVERY DAY IN THE MORNING 90 tablet 3 04/25/20 25 Active omega-3 acid ethyl esters (Lovaza) 1 gram capsuleIndication s:Hyperlipidemia, unspecified hyperlipidemia type TAKE 2 CAPSULES BY MOUTH TWICE A DAY 360 capsule 3 05/02/20 25 Active furosemide (Lasix) 20 mg tabletIndications :Benign hypertensive heart disease without congestive heart failure Take 1 tablet (20 mg) by mouth in the morning. 90 tablet 3 05/10/20 24 025 Discontinued omega-3 acid ethyl esters (Lovaza) 1 gram capsuleIndication s:Hyperlipidemia, unspecified hyperlipidemia type Take 2 capsules (2 g) by mouth two times daily. 120 capsule 11 08/02/20 24 025 Discontinued Active Problems Problem Noted Date Diagnosed Date Penile cyst 01/03/2025 Centrilobular emphysema 12/16/2024 Chronic cough 05/10/2024 Diverticulosis 05/10/2024 Insomnia 05/10/2024 Vitamin D deficiency 05/10/2024 Laceration of right hand without foreign body History of CVA (cerebrovascular accident) 2023 Morbid (severe) obesity due to excess calories 0 12/16/2023 Non-seasonal allergic rhinitis 12/16/2023 Overview (05/10/2024): Last Assessment & Plan: Reports chronic sinus/nasal congestion and cough. Symptoms are worse in the morning Trial of Claritin and Flonase. Monitor. Normocytic anemia 10/15/2023 Depression, recurrent 2023 Overview (05/10/2024): Last Assessment & Plan: Mood stable. Denies SI/HI. Not on any medications. Diabetic polyneuropathy asso ciated with type 2 diabetes mellitus 2023 Overview (05/10/2024): Last Assessment & Plan: Symptoms well controlled with gabapentin. C/w same. Encounter for screening for malignant neoplasm o f colon 2023 Overview (05/10/2024): Last Assessment & Plan: Ordered Cologuard for the patient. Mild vascular dementia witho ut behavioral disturbance, psychotic disturbance, mood disturbance, or anxiety 2023 Alzheimer's disease, unspecified (CODE) 05/10/20 21 Atrial fibrillation with rapid ventricular respo nse 03/29/2020 COPD, severity to be determined 03/29/2020 Morbid obesity with BMI of 40.0-44.9, adult 03/07 History of atrial fibrillation 08/02/2017 Hyperlipidemia 08/02/2017 Hypertension 08/02/2017 Cerebral infarction 08/06/2015 Overview (10/30/2022): Replacing Inactive Diagnoses Replacing Inactive Diagnoses Diabetes type 2, controlled 04/18/2015 Type 2 diabetes mellitus wit h hyperglycemia, without long-term current use of insulin 04/18/2015 CAD (coronary artery disease) 01/20/2012 Glaucoma 01/20/2012 Parkinsonism 01/20/2012 Encounters Date Type Department Care Team Description 05/02/[address] [place] [address] Gaetano Mendez MD Hyperlipidemia, unspecified hyperlipidemia type 04/24/[address] [place] [address] Gaetano Mendez MD Benign hypertensive heart disease without congestive heart failure 03/10/[address] [place] [address] Gaetano Mendez MD Paroxysmal atrial fibrillation (CMS/HCC) from Last 3 Months Family History Medical History Relation Name Comments Coronary artery disease Maternal Grandfather Coronary artery disease Maternal Grandmother Cerebral aneurysm Paternal Grandmother Cancer Sister Relation Name Status Comments Father Maternal Grandfather Maternal Grandmother Mother Paternal Grandmother Sister Social History Tobacco Use Types Packs/Day Years Used Date Smoking Tobacco: Former Cigarettes Smokeless Tobacco: Never Tobacco Cessation:Counseling Given: Not Answered Alcohol Use Standard Drinks/Week Comments Not Currently 0 (1 standard drink = 0.6 oz pur e alcohol) [place] Safety & Environment Answer Date Rec orded Fear of Current or Ex-Partner Not on file Emotionally Abused Not on file 11/27/2023 Physically Abused Not on file 11/27/2023 Sexually Abused Not on file 11/27/2023 Physically or Sexually Abused Not on file Sex and Gender Information Value Date Recorded Sex Assigned at Not on file Legal Sex Male 12:05 AM EDT Gender Identity Not on file Sexual Orientation Not on file Last Filed Vital Signs Vital Sign Reading Time Taken Comments Blood Pressure 102/65 02/01/2025 11:39 AM EDT Pulse 62 02/01/2025 11:39 AM EDT Temperature - - Respiratory Rate - - Oxygen Saturation 96% 02/01/2025 11:39 AM EDT Inhaled Oxygen Concentration - - Weight 121 kg (266 lb) 02/01/2025 11:39 AM EDT Height 177.8 cm (5' 10 ) 02/01/2025 11:39 AM EDT Body Mass Index 38.17 02/01/2025 11:39 AM EDT Plan of Treatment Health Maintenance Due Date Last Done Comments Diabetes: Hemoglobin A1C 1950 Medicare Annual Wellness (AWV) 1950 Diabetes: Retinopathy Screening 1960 Depression Screening 1962 Adult Tetanus 1972 Fall Risk Screening 2015 Diabetes: Urine Protein Screening 03/20/2022 03/20/2021 COVID-19 Vaccine ( season) 2024 06/29/2021, 06/08/2021 Influenza Vaccine (#1) 2025 , 07/16/2020, 07/05/2019, Additional history exists FOBT Discontinued 01/01/2018 Colonoscopy Discontinued 04/13/2019, 1950 Colorectal Cancer Screening Discontinued Pneumococcal Vaccine: 50+ Years Completed 07/05/2019, 04/05/2016, 04/15/2014 Zoster Vaccines Completed 06/03/2023, 03/07, 03/14/2017 CT Colonography Discontinued FIT-DNA Discontinued FIT Discontinued HIB Vaccines Aged Out No longer eligi ble based on patient's age to complete this topic HPV Vaccines Aged Out No longer eligi ble based on patient's age to complete this topic IPV Vaccines Aged Out No longer eligi ble based on patient's age to complete this topic Meningococcal B Vaccine Aged Out No l onger eligible based on patient's age to complete this topic Meningococcal Vaccine Aged Out No concha velma eligible based on patient's age to complete this topic Rotavirus Vaccines Aged Out No longer eligible based on patient's age to complete this topic Sigmoidoscopy Discontinued Insurance [facility] MEDICARE ADVANTAGE Care Teams Tie Fastener Relationship Specialty Start Date End Date Demetrio [place]ry MD [address] [place] [address] PCP - General Family Medicine 02/01/25
--- OUTSIDE RECORDS SUMMARY | 2025-05-10 10:19 | XMS_ITS | Encounter Summary ---
Author Organization [facility] Address [address], [address] [place] [address] Care Team Providers Care Rolling Chair Pusher Name Role Phone Shaikh KODY Mcnally Primary Care Provider [phone] Reason for Visit * Reason Comments Medication Refill Encounter Details Date Type Department Care Team (Late st Contact Info) Description 05/19/2020 Refill [facility] [address] [place] [address] Tona Daniels MD [address] [id number] Medication Refill Social History Tobacco Use Types Packs/Day Years Used Date Smoking Tobacco: Former Cigarettes 1 20 0 03/21/1990 - 03/21/2010 Smokeless Tobacco: Never Alcohol Use Standard Drinks/Week Comments No 0 (1 standard drink = 0.6 oz pur e alcohol) PHQ-2 Answer Date Recorded PHQ-2 Score 2 03/29/2020 Sex and Gender Information Value Date Recorded Sex Assigned at Not on file Legal Sex Male 12:36 PM EST Gender Identity Not on file Sexual Orientation Not on file documented as of this encounter Plan of Treatment Upcoming Encounters Date Type Department Care Team (Late st Contact Info) Description 10/20/2025 9:00 AM EST Office Visit [facility] NEUROLOGY Part [address] [place] [facility] [place] [address] Castillo Clark MD [address] [place] [address] [address] [facility] [place] [id number] 6 month follow up/ Essential Tremors documented as of this encounter Visit Diagnoses Not on filedocumented in this encounter Additional Health Concerns Infection Onset Date Last Indicated Resolved Time COVID-19 (Rule Out) 07/19/2021 07/19/2021 07/20/20 21 1:10 PM EDT Assessment Noted Time A fall risk assessment has been complete d for the patient 05/06/2019 9:58 AM EDT documented as of this encounter Care Teams Rolling Chair Pusher Relationship Specialty Start Date End Date Shaikh Mcnally MD PCP - General 10/01/22 documented as of this encounter
[2025-05-10 10:58] LABS: Glucose Urine UA >=1000 mg/dL (NEGATIVE)
[2025-05-10 11:04] LABS: Microalbum Creatinine Ratio Ur 25.1 mg/g (0.0-29.9); Protein Creatinine Ratio Urine 0.13; Total Protein Urine Random 18.1 mg/dL (<=11.9)
[2025-05-10 11:06] LABS: Hematocrit 44.1 % (42.0-54.0); Hemoglobin 13.7 g/dL (14.0-18.0); Mean Corpuscular HGB Conc 31.1 g/dL (29.9-35.2); Mean Corpuscular Hemoglobin 25.4 pg (25.9-34.0); Mean Corpuscular Volume 81.7 fL (80.0-94.0); Platelet Count 221 10^3/uL (150-450); Red Blood Count 5.40 10^6/uL (4.70-6.10); White Blood Count 7.7 10^3/uL (4.0-11.0)
[2025-05-10 11:07] LABS: Albumin Level 3.7 g/dL (3.4-5.0); Anion Gap 11.0; Blood Urea Nitrogen 26.0 mg/dL (7.0-18.0); Calcium 9.2 mg/dL (8.5-10.1); Carbon Dioxide 30.3 mmol/L (21.0-32.0); Chloride 104 mmol/L (98-107); Estimated GFR (African America >60 (>=60 mL/min/1.73m^2); Estimated GFR (Non-African Ame 50 (>=60 mL/min/1.73m^2); Glucose 132 mg/dL (74-106); Magnesium 2.0 mg/dL (1.8-2.4); Potassium 4.3 mmol/L (3.5-5.1); Sodium 141 mmol/L (136-145); Uric Acid 5.8 mg/dL (3.5-7.2)
== END 2025-05-10 10:09 | disposition home or self-care (01) ==
LOC: LAB 10:10
PROVIDERS: PCP Family Medicine; Visit Provider Internal Medicine Nephrology
DX: E11.21 Type 2 diabetes mellitus with diabetic nephropathy (principal); N18.31 Chronic kidney disease, stage 3a; I12.9 Hypertensive chronic kidney disease with stage 1 through stage 4 chronic kidney disease, or unspecified chronic kidney disease
CPT/HCPCS: 36415; 80069; 81003; 82043; 82306; 82570; 83735; 83970; 84156; 84550; 85027